=== PATIENT | female | born 1990 | race Caucasian/White ===

== ENCOUNTER 2023-11-20 15:25 | Outpatient (CLI) | payer OTHER, SELFPAY ==
--- OUTSIDE RECORDS SUMMARY | 2023-11-27 07:50 | XMS_ITS | Continuity of Care Document ---
Author Name [facility] Organization [facility] Care Team Providers Care Aviation Consultant Name Role Phone [facility] Unavailable Unavailable Problems Combined list of problems from Department of Defense and 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 It does not include entries that were removed or entered in error. Problem Status Onset Date Problem Type Date of Resolution Comments Source Anxiety Active Condition [facility] Attention deficit hyperactivity disorder, predominantly inattentive type Active Condition [facility] Cancer cervix screening status Active Condition Nov 21 Entered By: MAILE RAZA Comment: No hx BJ 2-3Aug 2021 Entered By: MAILE RAZA Comment: 12/07/20 Colposcopy neg/ECC negAug 2021 Entered By: MAILE RAZA Comment: 11/15/21 PAP NILM/HPV neg. Next co-test due in 3 years (10/2024). [facility] Fatigue Active Condition [facility] Major depressive disorder Active Condition [facility] Nasal congestion Active Condition [facility] White blood cell count abnormal Active Condition Nov 08, 2020 Entered By: MAILE RAZA Comment: chronic, peripheral smear done 10/2020 [facility] breathing-related sleep disorders Active Condition [facility] fatigue Active Condition [facility] Body Mass Index Active Condition [facility] routine examination Active Condition [facility] adjustment disorder with disturbance of emotions and conduct Active Condition [facility] nasal passage blockage (stuffiness) Active Condition [facility] smoking cigarettes Active Condition [facility] obesity Active Condition [facility] visit for: [facility] physical medical evaluation board (MEB) Inactive Condition [facility] adjustment disorder with mixed emotional features Active Condition [facility] adjustment disorder with disturbance of emotions Active Condition [facility] midback pain Active Condition [facility] scoliosis Active Condition [facility] 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 [facility] visit for: screening exam venereal disease Active Condition [facility] exposure to STD Active Condition [facility] chlamydial infections Inactive Condition [facility] Need For Vaccination Human Papilloma Virus Active Condition [facility] Oral Contraceptives Active Condition [facility] visit for: gynecological exam with Pap smear Inactive Condition [facility] Cervical Pap Smear Active Condition [facility] depression Active Condition [facility] Other Physical Therapy Active Condition [facility] visit for: follow-up exam Active Condition [facility] adjustment disorder Active Condition [facility] kyphosis acquired Active Condition [facility] lumbago Active Condition [facility] pharyngitis Active Condition [facility] dermatophytosis tinea pedis Active Condition [facility] Posture Active Condition [facility] acroparesthesia simple Active Condition [facility] lower back pain Active Condition [facility] D joint pain, localized in the wrist Active Condition and numbness DoD rhinitis Active Condition [facility] pharyngitis streptococcus, group A: beta hemolytic Inactive Condition DoD visit for: services physical Active Condition [facility] Preventive Medicine New Patient Evaluation Adult 18-39 Years Active Condition [facility] fracture of nasal bones Active Condition [facility] joint pain, localized in the hip Active Condition LeftExam suggestive of contusion, no apparent instability [facility] Patient Education - Injury Prevention Active Condition [facility] Guidance: Concerns About Alcohol Use Active Condition [facility] Guidance: Concerns About Tobacco Use Active Condition [facility] Guidance: Concerns About Unsafe Sexual Practices Inactive Condition [facility] Patient Counseling: Inactive Condition [facility] hip sprain left Active Condition [facility] knee sprain Active Condition [facility] joint pain in the toes Active Condition [facility] assessment of patient condition work-related Active Condition [facility] visit for: ears / hearing exam Active Condition DoD visit for: screening exam pulmonary tuberculosis Inactive Condition [facility] Need For Vaccination Against Viral Diseases Inactive Condition [facility] Need For Vaccination Hepatitis A Inactive Condition [facility] Need For Vaccination Against Combinations Of Diseases Inactive Condition [facility] Need For Vaccination Against Bacterial Diseases Inactive Condition [facility] Diagnosis: ICD-10-CM O09.522 Supervision of elderly multigravida, second trimester Active Diagnosis [facility] Diagnosis: ICD-10-CM O09.521 Supervision of elderly multigravida, first trimester Active Diagnosis [facility] Diagnosis: ICD-10-CM J34.2 Deviated nasal septum Active Diagnosis [facility] Diagnosis: ICD-10-CM E66.01 Morbid (severe) obesity due to excess calories Active Diagnosis [facility] Diagnosis: ICD-10-CM M54.50 Low back pain, unspecified Active Diagnosis [facility] Diagnosis: ICD-10-CM F90.0 Attn-defct hyperactivity disorder, predom inattentive type Active Diagnosis [facility] Diagnosis: ICD-10-CM F41.9 Anxiety disorder, unspecified Active Diagnosis [facility] Diagnosis: ICD-10-CM M25.552 Pain in left hip Active Diagnosis [facility] Diagnosis: ICD-10-CM R09.81 Nasal congestion Active Diagnosis [facility] Diagnosis: ICD-10-CM L70.8 Other acne Active Diagnosis [facility] Diagnosis: ICD-10-CM K58.2 Mixed irritable bowel syndrome Active Diagnosis SHIV Wall [facility] Diagnosis: ICD-10-CM H52.03 Hypermetropia, bilateral Active Diagnosis [facility] Diagnosis: ICD-10-CM R53.82 Chronic fatigue, unspecified Active Diagnosis [facility] Diagnosis: ICD-10-CM Z13.89 Encounter for screening for other disorder Active Diagnosis SHIV Wall [facility] Diagnosis: ICD-10-CM M79.671 Pain in right foot Active Diagnosis [facility] Diagnosis: ICD-10-CM I10 Essential (primary) hypertension Active Diagnosis [facility] Diagnosis: ICD-10-CM F33.41 Major depressive disorder, recurrent, in partial remission Active Diagnosis [facility] Diagnosis: ICD-10-CM R06.00 Dyspnea, unspecified Active Diagnosis [facility] Diagnosis: ICD-10-CM F32.A Depression, unspecified Active Diagnosis [facility] Diagnosis: ICD-10-CM R52 Pain, unspecified Active Diagnosis [facility] Diagnosis: ICD-10-CM Z78.9 Other specified health status Active Diagnosis [facility] Medications Combined list of outpatient medications from Department of Defense and 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Medications provided include 1) outpatient medications from the last 15 months, and 2) patient-reported medications. Medication Details Route Status Patient Instructions Prescription Expires Prescription Number Last Dispense Date Ordering Provider Order Date Order Qty Source ALBUTEROL 90MCG/ACTUA T (CFC-F) INHL,ORAL,8 .5GM DOSE COUNTER ALBUTERO L 90MCG/AC TUAT (CFC-F) INHL,ORA L,8.5GM DOSE COUNTER INHALE ONE TO TWO PUFFS BY MOUTH EVERY 4 HOURS NEEDED FOR SHORTNES S OF BREATH OR WHEEZING Oct 08, 2023 1 Nov 07, 2023 [id number] Oct 13, 2023 ALESSANDRA MCLAUGHLIN ARTURO [facility] RESPIR ATORY (INHAL ATION) 11/07/2023 [id number] ALBERTO MCLAUGHLIN 2023 1 [facility] LEEIS [facility] BISACODYL 5MG TAB,EC BISACODY L 5MG TAB,EC TAKE TWO TABLETS BY MOUTH ONCE FOR COLON PREP FOR COLON PREP Nov 13, 2022 2 Dec 13, 2022 [id number] Nov 13, 2022 BRODIEJESUS GERRY Peace [facility] ORAL 12/13/2022 [id number] GERRY HOLM Nata [address] [facility] BISACODYL 5MG TAB,EC BISACODY L 5MG TAB,EC TAKE TWO TABLETS BY MOUTH DIRECTED FOR COLON PREP FOR COLON PREP Sep 27, 2022 2 Oct 27, 2022 [id number] Sep 27, 2022 MIHAIGERRY Nata [facility] ORAL 10/27/2022 [id number] MIHAIAIMEEGERRY Nata [address] [facility] CICLOPIROX 8% SOLN,TOP CICLOPIR OX 8% SOLN,TOP Active APPLY THIN FILM TOPICALL Y EVERY DAY FOR FUNGAL NAIL INFECTIO N -- USE UNTIL RESOLUTI ON OR 48 WEEKS FOR FUNGAL NAIL INFECTIO N Dec 31, 2022 19.8 Jan 01, 2024 [id number] Dec 31, 2022 ADDIE VALDEZ [facility] TOPICA L ACTIVE 01/01/2024 [id number] LEOPOLDO GUERRERO [address] [facility] FLUCONAZOLE 150MG TAB FLUCONAZ OLE 150MG TAB Disconti nued TAKE ONE TABLET BY MOUTH ONCE FOR ONE DOSE May 14, 2023 1 Jun 13, 2023 [id number] May 14, 2023 RICARDO FELIPE S [facility] ORAL DISCONT INUED 06/13/2023 [id number] Bonny FELIPE [address] [facility] IMIQUIMOD 5% CREAM,TOP,P KT,0.25GM IMIQUIMO D 5% CREAM,TO P,PKT,0. 25GM Active APPLY 1 PACKET TOPICALL Y FRIDAY, Y AND FRIDAY AT BEDTIME LEAVE ON SKIN FOR 8 HOURS. DO NOT USE WHILE Oct 30, 2023 24 Oct 30, 2024 [id number] Nov 01, 2023 FB-HRDLI ARNOLDO HARO M [facility] TOPICA L ACTIVE 10/30/2024 [id number] FB-HRDLIC JAH SMITH M 2023 24 [facility] OLIS [facility] LOPERAMIDE HCL 2MG CAP LOPERAMI DE HCL 2MG CAP TAKE ONE TO TWO CAPSULES BY MOUTH NEEDED UP TO THREE TIMES DAILY FOR DIARRHEA FOR DIARRHEA Sep 27, 2022 100 Sep 28, 2023 [id number] Sep 27, 2022 GERRY HOLM R [facility] ORAL 09/28/2023 [id number] GERRY HOLM 2022 100 [facility] METRONIDAZO LE 500MG TAB METRONID AZOLE 500MG TAB Disconti nued TAKE ONE TABLET BY MOUTH TWICE A DAY FOR 7 DAYS May 14, 2023 14 Jun 13, 2023 [id number] May 14, 2023 RICARDO FELIPE S [facility] ORAL DISCONT INUED 06/13/2023 [id number] Bonny FELIPE 2023 14 [facility] MODAFINIL 200MG TAB MODAFINI L 200MG TAB Disconti nued TAKE ONE AND ONE-HALF TABLETS BY MOUTH EVERY MORNING FOR MOOD, ENERGY FOR MOOD, ENERGY Nov 28, 2022 45 May 31, 2023 [id number] Apr 30, 2023 [place] [facility] ORAL DISCONT INUED BY PROVIDE R 05/31/2023 [id number] [place] E 2022 45 [facility] MODAFINIL 200MG TAB MODAFINI L 200MG TAB Disconti nued TAKE ONE TABLET BY MOUTH EVERY MORNING FOR MOOD, ENERGY FOR ENERGY, FOCUS, MOOD FOR MOOD, ENERGY Nov 12, 2022 30 May 16, 2023 [id number] Nov 13, 2022 [place] [facility] ORAL DISCONT INUED (EDIT) 05/16/2023 [id number] [place] E [address] [facility] MODAFINIL 200MG TAB MODAFINI L 200MG TAB Disconti nued TAKE ONE-HALF TABLET BY MOUTH EVERY MORNING FOR 3 DAYS, THEN TAKE ONE TABLET EVERY MORNING FOR ENERGY, FOCUS, MOOD FOR ENERGY, MOOD Oct 09, 2022 29 Apr 11, 2023 [id number] Oct 09, 2022 [place] [facility] ORAL DISCONT INUED 04/11/2023 [id number] [place] E [address] [facility] MULTIVITAMI NS W/MINERALS, CAP/TAB MULTIVIT AMINS W/MINERA LS,PRENA BRII CAP/TAB Active TAKE 1 TABLET BY MOUTH EVERY DAY FOR SUPPLEME NT FOR SUPPLEME NT August 07, 2023 100 August 07, 2024 [id number] A August 08, 2023 BINA MAYA [facility] ORAL ACTIVE 08/07/2024 [id number] [address]AI [address] [facility] MULTIVITAMI NS W/MINERALS, CAP/TAB MULTIVIT AMINS W/MINERA LS,PRENA BRII CAP/TAB Disconti nued TAKE 1 TABLET BY MOUTH EVERY DAY FOR SUPPLEME NT FOR SUPPLEME NT Jul 19, 2022 100 Jul 20, 2023 [id number] Mar 06, 2023 BINA MAYA [facility] ORAL DISCONT INUED 07/20/2023 [id number] BINA BAI [address] [facility] NIFEDIPINE (EQV-CC) 30MG TAB,SA NIFEDIPI NE (EQV-CC) 30MG TAB,SA Active TAKE ONE TABLET BY MOUTH EVERY DAY FOR BLOOD PRESSURE FOR BLOOD PRESSURE August 07, 2023 90 August 07, 2024 [id number] A August 10, 2023 BINA MAYA [facility] ORAL ACTIVE 08/07/2024 [id number] BINA BAI [address] [facility] NIFEDIPINE (EQV-CC) 30MG TAB,SA NIFEDIPI NE (EQV-CC) 30MG TAB,SA Disconti nued TAKE ONE TABLET BY MOUTH EVERY DAY FOR BLOOD PRESSURE FOR BLOOD PRESSURE Jul 19, 2022 90 Jul 20, 2023 [id number] May 22, 2023 [facility] ORAL DISCONT INUED 07/20/2023 [id number]AI [address] [facility] OMEPRAZOLE 20MG CAP,EC OMEPRAZO LE 20MG CAP,EC Disconti nued TAKE TWO CAPSULES BY MOUTH EVERY DAY BEFORE A MEAL Jul 16, 2023 60 August 15, 2023 [id number] Jul 18, 2023 FB-ISCHE ,IMANI W [facility] ORAL DISCONT INUED 08/15/2023 [id number] FB-ISCHE, IMANI W [address] [facility] PEG-3350/EL ECTROLYTES PWDR PEG-3350 /ELECTRO LYTES PWDR TAKE ONE AND ONE-HALF CONTAINE RS BY MOUTH DIRECTED FOR COLON PREP FOR COLON PREP Nov 13, 2022 2 Dec 13, 2022 [id number] Nov 13, 2022 [facility]OLM [facility] ORAL 12/13/2022 [id number] GERRY HOLM [address] [facility] PEG-3350/EL ECTROLYTES PWDR PEG-3350 /ELECTRO LYTES PWDR TAKE ONE CONTAINE R BY MOUTH DIRECTED FOR COLON PREP FOR COLON PREP Sep 27, 2022 1 Oct 27, 2022 [id number] Sep 27, 2022 [facility]OLM [facility] ORAL 10/27/2022 [id number] GERRY HOLM 2022 1 [facility] VENLAFAXINE HCL 150MG 24HR CAP,SA VENLAFAX INE HCL 150MG 24HR CAP,SA Disconti nued TAKE ONE CAPSULE BY MOUTH EVERY DAY FOR ANXIETY, PAIN FOR ANXIETY, PAIN Jan 16, 2023 90 Jan 17, 2024 [id number] Apr 07, 2023 [place] [facility] ORAL DISCONT INUED BY PROVIDE R 01/17/2024 [id number] [place] E [address] [facility] VENLAFAXINE HCL 37.5MG 24HR CAP,SA VENLAFAX INE HCL 37.5MG 24HR CAP,SA Disconti nued TAKE ONE CAPSULE BY MOUTH EVERY DAY WITH A MEAL Jun 06, 2023 14 Jul 05, 2023 [id number] Jun 06, 2023 [facility]E [facility] BY PROVIDE R 07/05/2023 [id number] ABDOULAYE ROOT [address] [facility] VENLAFAXINE HCL 37.5MG 24HR CAP,SA VENLAFAX INE HCL 37.5MG 24HR CAP,SA Disconti nued TAKE ONE CAPSULE BY MOUTH EVERY DAY FOR ANXIETY, PAIN FOR ANXIETY, PAIN Oct 10, 2022 90 Oct 11, 2023 [id number] Oct 14, 2022 [place] [facility] ORAL DISCONT INUED (EDIT) 10/11/2023 [id number] [place] [address] [facility] VENLAFAXINE HCL 75MG 24HR CAP,SA VENLAFAX INE HCL 75MG 24HR CAP,SA Disconti nued TAKE ONE CAPSULE BY MOUTH EVERY DAY WITH MEAL FOR 14 DAYS Jun 06, 2023 14 Jul 05, 2023 [id number] Jun 06, 2023 ABDOULAYE CALLES [facility] ORAL DISCONT INUED BY PROVIDE R 07/05/2023 [id number] ABDOULAYE ROOT [address] [facility] VENLAFAXINE HCL 75MG 24HR CAP,SA VENLAFAX INE HCL 75MG 24HR CAP,SA Disconti nued TAKE ONE CAPSULE BY MOUTH EVERY DAY FOR ANXIETY, PAIN FOR ANXIETY, PAIN Nov 28, 2022 90 Nov 29, 2023 [id number] Dec 03, 2022 [place] [facility] ORAL DISCONT INUED (EDIT) 11/29/2023 [id number] [place],Sherine [place] E [address] [facility] Allergies, Adverse Reactions, Alerts Combined list of allergies from Department of Defense and 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 It does not include entries that were removed or entered in error. Substance Category Reaction Severity Reaction type Status Date Reported Comments Source No Known Allergies Drug allergy (disorder) active 12/25/2007 [facility] Immunizations Combined list of available immunizations from the Department of Defense and 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 Immunization Series Date Given Administered By Site Reaction Lot Number CVX Code Drug Senior Regulatory Affairs Specialist Status Comments Source TD (ADULT), 2 LF TETANUS TOXOID, PRESERVATIVE FREE, ADSORBED 2018 09 complet ed sanofi, [id number], EX 12/22/19 [facility] INFLUENZA, SEASONAL, INJECTABLE [address] [facility] HPV, QUADRIVALENT [address] [facility] INFLUENZA, SEASONAL, INJECTABLE [address] [facility] TDAP [address] [facility] INFLUENZA, SEASONAL, INJECTABLE [address] [facility] HPV, QUADRIVALENT [address] [facility] Novel influenza-H1N 1-09, injectable 1 2008 [id number] 127 [employer] Es. (NOV) complet ed Novel influenza -D3Q2-58, injectabl e [facility] anthrax vaccine 2 2008 [id number] [employer] Rena Lara (MIP) complet ed anthrax vaccine [facility] anthrax vaccine 1 2008 [id number] [employer] Yuan (MIP) complet ed anthrax vaccine [facility] vaccinia (smallpox) vaccine 1 2008 UNK 75 Unknown (UNK) Not Given vaccinia (smallpox ) vaccine [facility] typhoid Vi capsular polysaccharid e vaccine 1 2008 [id number] Unknown (UNK) comple t ed typhoid Vi capsular polysacch aride vaccine [facility] human papilloma virus vaccine, quadrivalent 1 2008 IBETH RUBY [id number] 62 Merck (MSD) complet ed human papilloma virus vaccine, quadrival ent DoD influenza virus vaccine, live, attenuated, for intranasal use 1 2007 [id number] 111 Other (OTH) complet ed influenza virus vaccine, live, attenuate d, for intranasa l use DoD hepatitis A vaccine, adult dosage 2 2007 [id number] 52 Unknown (UNK) complet ed hepatitis A vaccine, adult dosage DoD TDAP 2007 115 complet ed [place] [facility] measles, mumps and rubella virus vaccine 1 2007 UNK 03 Unknown (UNK) Not Given measles, mumps and rubella virus vaccine DoD poliovirus vaccine, inactivated 1 2007 [id number] Sanofi Pasteur ([facility]) complet ed polioviru s vaccine, inactivat ed DoD varicella virus vaccine 1 2007 UNK 21 Unknown (UNK) Not Given varicella virus vaccine DoD hepatitis B vaccine, adult dosage 1 2007 UNK 43 Unknown (UNK) Not Given hepatitis B vaccine, adult dosage DoD hepatitis A vaccine, adult dosage 1 2007 [id number] 52 Control[employer] (SKB) complet ed hepatitis A vaccine, adult dosage DoD influenza virus vaccine, live, attenuated, for intranasal use 1 2007 [id number] 111 [employer] (MED) complet ed influenza virus vaccine, live, attenuate d, for intranasa l use DoD meningococcal polysaccharid e (groups A, C, Y and W-135) diphtheria toxoid conjugate vaccine (MCV4P) 1 2007 [id number] 114 Sanofi Pasteur (PMC) complet ed meningoco ccal polysacch aride (groups A, C, Y and W-135) diphtheri a toxoid conjugate vaccine (MCV4P) DoD tetanus toxoid, reduced diphtheria toxoid, and acellular pertu is vaccine, adsorbed 1 2007 [id number] 115 Sanofi Pasteur (PMC) complet ed tetanus toxoid, reduced diphtheri a toxoid, and acellular pertussis vaccine, adsorbed DoD Results Combined list of recent chemistry, hematology and other laboratory results from Department of Defense and Veterans Affairs, ranging from 15 months to all on record, depending upon the facility. Order Name Results Value Reference Range Date Interpretation Specimen Comments Source MARTÍN RODRIGUEZ/Anitha. GONORRHE A DNA CHLAMYDIA TRACHOMATI S DNA [PRESENCE] IN URINE BY MAL WITH PROBE DETECTION NOT DETECTED 12/31 Specimen Type: URINE No comment entered. Ordering Provider: Angy GUERRERO Report Released Date/Time: Dec 31, 2022 01:23 PM Reporting Lab: [facility] [phone] Performing Lab: [facility] [phone] [facility] IS [facility] C.TRACHO MATIS/N. GONORRHE A DNA NEISSERIA GONORRHOEA E DNA [PRESENCE] IN URINE BY MAL WITH PROBE DETECTION NOT DETECTED 12/31 Specimen Type: URINE No comment entered. Ordering Provider: Angy GUERRERO Report Released Date/Time: Dec 31, 2022 01:23 PM Reporting Lab: [facility] [phone] Performing Lab: [facility] [address] [facility] IS [facility] C.TRACHO MATIS/N. GONORRHE A DNA INTERPRETA TION AND REVIEW OF LABORATORY RESULTS Infectio us agent DNA is not detected by this assay 12/31 Specimen Type: URINE No comment entered. Ordering Provider: Angy GUERRERO Report Released Date/Time: Dec 31, 2022 01:23 PM Reporting Lab: [facility] [phone] Performing Lab: [facility] [phone] [facility] IS [facility] HCG, QUAL CHORIOGONA DOTROPIN.B ETA SUBUNIT ( TEST) [PRESENCE] IN URINE NEGATIVE 12/31 Specimen Type: URINE No comment entered. Ordering Provider: Angy GUERRERO Report Released Date/Time: Dec 31, 2022 01:23 PM Reporting Lab: [facility] [phone] Performing Lab: [facility] [address] [facility] IS [facility] LIPID PANEL,NO N-FASTIN G CHOLESTERO L [MASS/VOLU ME] IN SERUM OR PLASMA 232 mg/dL <199 - 199 12/31 H Specimen Type: PLASMA Comment: Elevated triglycerid e result from a non-fasting specimen should be interpreted with caution. A fasting panel is recommended for accurate triglycerid es when trigs are >200 from a non-fasting specimen. Ordering Provider: JAKUB RAZA Report Released Date/Time: Jul 19, 2022 09:34 AM Reporting Lab: [facility] [phone] Performing Lab: [facility] [address] [place] [facility] LIPID PANEL,NO N-FASTIN G CHOLESTERO L IN HDL [MASS/VOLU ME] IN SERUM OR PLASMA 45 mg/dL 50 12/31 Specimen Type: PLASMA Comment: Elevated triglycerid e result from a non-fasting specimen should be interpreted with caution. A fasting panel is recommended for accurate triglycerid es when trigs are >200 from a non-fasting specimen. Ordering Provider: JAKUB RAZA Report Released Date/Time: Jul 19, 2022 09:34 AM Reporting Lab: [facility] [address] Performing Lab: [facility] [address] [place] [facility] LIPID PANEL,NO N-FASTIN G CHOLESTERO L IN LDL [MASS/VOLU ME] IN SERUM OR PLASMA BY CALCULATIO N 146 mg/dL <99 - 99 12/31 H Specimen Type: PLASMA Comment: Elevated triglycerid e result from a non-fasting specimen should be interpreted with caution. A fasting panel is recommended for accurate triglycerid es when trigs are >200 from a non-fasting specimen. Ordering Provider: JAKUB RAZA Report Released Date/Time: Jul 19, 2022 09:34 AM Reporting Lab: [facility] [phone] Performing Lab: [facility] [address] [place] [facility] LIPID PANEL,NO N-FASTIN G CHOLESTERO L IN VLDL [MASS/VOLU ME] IN SERUM OR PLASMA BY CALCULATIO N 41 mg/dL <29 - 29 12/31 H Specimen Type: PLASMA Comment: Elevated triglycerid e result from a non-fasting specimen should be interpreted with caution. A fasting panel is recommended for accurate triglycerid es when trigs are >200 from a non-fasting specimen. Ordering Provider: JAKUB RAZA Report Released Date/Time: Jul 19, 2022 09:34 AM Reporting Lab: [facility] [phone] Performing Lab: [facility] [address] [place] [facility] LIPID PANEL,NO N-FASTIN G CHOLESTERO L NON HDL [MASS/VOLU ME] IN SERUM OR PLASMA 187 mg/dL <129 - 129 12/31 H Specimen Type: PLASMA Comment: Elevated triglycerid e result from a non-fasting specimen should be interpreted with caution. A fasting panel is recommended for accurate triglycerid es when trigs are >200 from a non-fasting specimen. Ordering Provider: JAKUB RAZA Report Released Date/Time: Jul 19, 2022 09:34 AM Reporting Lab: [facility] [address] Performing Lab: [facility] [address] [place] [facility] LIPID PANEL,NO N-FASTIN G TRIGLYCERI DE [MASS/VOLU ME] IN SERUM OR PLASMA 207 mg/dL <149 - 149 12/31 H Specimen Type: PLASMA Comment: Elevated triglycerid e result from a non-fasting specimen should be interpreted with caution. A fasting panel is recommended for accurate triglycerid es when trigs are >200 from a non-fasting specimen. Ordering Provider: JAKUB RAZA Report Released Date/Time: Jul 19, 2022 09:34 AM Reporting Lab: [facility] [address] Performing Lab: [facility] [address] [place] [facility] C-REACTI VE PROTEIN C REACTIVE PROTEIN [MASS/VOLU ME] IN SERUM OR PLASMA BY HIGH SENSITIVIT Y METHOD 10.44 mg/L <5.00 - 5.00 12/31 H Specimen Type: PLASMA Comment: Elevated triglycerid e result from a non-fasting specimen should be interpreted with caution. A fasting panel is recommended for accurate triglycerid es when trigs are >200 from a non-fasting specimen. Ordering Provider: JAKUB RAZA Report Released Date/Time: Jul 19, 2022 09:34 AM Reporting Lab: [facility] [address] Performing Lab: [facility] [address] [place] [facility] COMPREHE NSIVE METABOLI C PANEL+MG CREATININE [MASS/VOLU ME] IN SERUM OR PLASMA 0.6 mg/dL 0.5 - 1.0 12/31 Specimen Type: PLASMA Comment: Elevated triglycerid e result from a non-fasting specimen should be interpreted with caution. A fasting panel is recommended for accurate triglycerid es when trigs are >200 from a non-fasting specimen. Ordering Provider: JAKUB RAZA Report Released Date/Time: Jul 19, 2022 09:34 AM Reporting Lab: [facility] [address] Performing Lab: [facility] [address] [facility] COMPREHE NSIVE METABOLI C PANEL+MG UREA NITROGEN [MASS/VOLU ME] IN SERUM OR PLASMA 7 mg/dL 7 - 20 12/31 Specimen Type: PLASMA Comment: Elevated triglycerid e result from a non-fasting specimen should be interpreted with caution. A fasting panel is recommended for accurate triglycerid es when trigs are >200 from a non-fasting specimen. Ordering Provider: JAKUB RAZA Report Released Date/Time: Jul 19, 2022 09:34 AM Reporting Lab: [facility] [address] Performing Lab: [facility] [address] [facility] COMPREHE NSIVE METABOLI C PANEL+MG GLUCOSE [MASS/VOLU ME] IN SERUM OR PLASMA 93 mg/dL 70 - 100 12/31 Specimen Type: PLASMA Comment: Elevated triglycerid e result from a non-fasting specimen should be interpreted with caution. A fasting panel is recommended for accurate triglycerid es when trigs are >200 from a non-fasting specimen. Ordering Provider: JAKUB RAZA A Report Released Date/Time: Jul 19, 2022 09:34 AM Reporting Lab: [facility] [address] Performing Lab: [facility] [address] [facility] COMPREHE NSIVE METABOLI C PANEL+MG SODIUM [MOLES/VOL UME] IN SERUM OR PLASMA 140 mmol/L 136 - 145 12/31 Specimen Type: PLASMA Comment: Elevated triglycerid e result from a non-fasting specimen should be interpreted with caution. A fasting panel is recommended for accurate triglycerid es when trigs are >200 from a non-fasting specimen. Ordering Provider: JAKUB RAZA Report Released Date/Time: Jul 19, 2022 09:34 AM Reporting Lab: [facility] [address] Performing Lab: [place] [phone] [facility] COMPREHE NSIVE METABOLI C PANEL+MG POTASSIUM [MOLES/VOL UME] IN SERUM OR PLASMA 3.9 mmol/L 3.5 - 5.1 12/31 Specimen Type: PLASMA Comment: Elevated triglycerid e result from a non-fasting specimen should be interpreted with caution. A fasting panel is recommended for accurate triglycerid es when trigs are >200 from a non-fasting specimen. Ordering Provider: JAKUB RAZA Report Released Date/Time: Jul 19, 2022 09:34 AM Reporting Lab: [facility] [address] Performing Lab: [place] [phone] [facility] COMPREHE NSIVE METABOLI C PANEL+MG CHLORIDE [MOLES/VOL UME] IN SERUM OR PLASMA 107 mmol/L 98 - 107 12/31 Specimen Type: PLASMA Comment: Elevated triglycerid e result from a non-fasting specimen should be interpreted with caution. A fasting panel is recommended for accurate triglycerid es when trigs are >200 from a non-fasting specimen. Ordering Provider: JAKUB RAZA Report Released Date/Time: Jul 19, 2022 09:34 AM Reporting Lab: [facility] [address] Performing Lab: [facility] [address] [facility] COMPREHE NSIVE METABOLI C PANEL+MG CARBON DIOXIDE, TOTAL [MOLES/VOL UME] IN SERUM OR PLASMA 24 mmol/L 22 - 29 12/31 Specimen Type: PLASMA Comment: Elevated triglycerid e result from a non-fasting specimen should be interpreted with caution. A fasting panel is recommended for accurate triglycerid es when trigs are >200 from a non-fasting specimen. Ordering Provider: AJKUB RAZA Report Released Date/Time: Jul 19, 2022 09:34 AM Reporting Lab: [place] [phone] Performing Lab: [facility] [address] [place] [facility] COMPREHE NSIVE METABOLI C PANEL+MG CALCIUM [MASS/VOLU ME] IN SERUM OR PLASMA 8.9 mg/dL 8.4 - 10.2 12/31 Specimen Type: PLASMA Comment: Elevated triglycerid e result from a non-fasting specimen should be interpreted with caution. A fasting panel is recommended for accurate triglycerid es when trigs are >200 from a non-fasting specimen. Ordering Provider: JAKUB RAZA Report Released Date/Time: Jul 19, 2022 09:34 AM Reporting Lab: [facility] [phone] Performing Lab: [facility] [address] [place] [facility] COMPREHE NSIVE METABOLI C PANEL+MG PROTEIN [MASS/VOLU ME] IN SERUM OR PLASMA 7.2 g/dL 6.0 - 8.3 12/31 Specimen Type: PLASMA Comment: Elevated triglycerid e result from a non-fasting specimen should be interpreted with caution. A fasting panel is recommended for accurate triglycerid es when trigs are >200 from a non-fasting specimen. Ordering Provider: JAKUB RAZA Report Released Date/Time: Jul 19, 2022 09:34 AM Reporting Lab: [facility] [phone] Performing Lab: [facility] [address] [facility] COMPREHE NSIVE METABOLI C PANEL+MG ALBUMIN [MASS/VOLU ME] IN SERUM OR PLASMA 4.0 g/dL 3.5 - 5.2 12/31 Specimen Type: PLASMA Comment: Elevated triglycerid e result from a non-fasting specimen should be interpreted with caution. A fasting panel is recommended for accurate triglycerid es when trigs are >200 from a non-fasting specimen. Ordering Provider: JAKUB RAZA Report Released Date/Time: Jul 19, 2022 09:34 AM Reporting Lab: [facility] [address] Performing Lab: [facility] [address] [place] [facility] COMPREHE NSIVE METABOLI C PANEL+MG BILIRUBIN. TOTAL [MASS/VOLU ME] IN SERUM OR PLASMA 0.3 mg/dL 0.2 - 1.2 12/31 Specimen Type: PLASMA Comment: Elevated triglycerid e result from a non-fasting specimen should be interpreted with caution. A fasting panel is recommended for accurate triglycerid es when trigs are >200 from a non-fasting specimen. Ordering Provider: JAKUB RAZA A Report Released Date/Time: Jul 19, 2022 09:34 AM Reporting Lab: [facility] [phone] Performing Lab: [facility] [address] [facility] COMPREHE NSIVE METABOLI C PANEL+MG MAGNESIUM [MASS/VOLU ME] IN SERUM OR PLASMA 1.8 mg/dL 1.6 - 2.6 12/31 Specimen Type: PLASMA Comment: Elevated triglycerid e result from a non-fasting specimen should be interpreted with caution. A fasting panel is recommended for accurate triglycerid es when trigs are >200 from a non-fasting specimen. Ordering Provider: JAKUB RAZA A Report Released Date/Time: Jul 19, 2022 09:34 AM Reporting Lab: [facility] [address] Performing Lab: [facility] [address] [facility] COMPREHE NSIVE METABOLI C PANEL+MG ANION GAP IN SERUM OR PLASMA 9 mmol/L 5 - 15 12/31 Specimen Type: PLASMA Comment: Elevated triglycerid e result from a non-fasting specimen should be interpreted with caution. A fasting panel is recommended for accurate triglycerid es when trigs are >200 from a non-fasting specimen. Ordering Provider: JAKUB RAZA A Report Released Date/Time: Jul 19, 2022 09:34 AM Reporting Lab: [facility] [phone] Performing Lab: [facility] [address] [facility] COMPREHE NSIVE METABOLI C PANEL+MG ALKALINE PHOSPHATAS E [ENZYMATIC ACTIVITY/V OLUME] IN SERUM OR PLASMA 110 U/L 40 - 150 12/31 Specimen Type: PLASMA Comment: Elevated triglycerid e result from a non-fasting specimen should be interpreted with caution. A fasting panel is recommended for accurate triglycerid es when trigs are >200 from a non-fasting specimen. Ordering Provider: JAKUB RAZA Report Released Date/Time: Jul 19, 2022 09:34 AM Reporting Lab: [facility] [address] Performing Lab: [facility] [address] [facility] COMPREHE NSIVE METABOLI C PANEL+MG ALANINE AMINOTRANS FERASE [ENZYMATIC ACTIVITY/V OLUME] IN SERUM OR PLASMA 26 U/L <55 - 55 12/31 Specimen Type: PLASMA Comment: Elevated triglycerid e result from a non-fasting specimen should be interpreted with caution. A fasting panel is recommended for accurate triglycerid es when trigs are >200 from a non-fasting specimen. Ordering Provider: JAKUB RAZA Report Released Date/Time: Jul 19, 2022 09:34 AM Reporting Lab: [facility] [address] Performing Lab: [facility] [address] [facility] COMPREHE NSIVE METABOLI C PANEL+MG ASPARTATE AMINOTRANS FERASE [ENZYMATIC ACTIVITY/V OLUME] IN SERUM OR PLASMA 26 U/L <34 - 34 12/31 Specimen Type: PLASMA Comment: Elevated triglycerid e result from a non-fasting specimen should be interpreted with caution. A fasting panel is recommended for accurate triglycerid es when trigs are >200 from a non-fasting specimen. Ordering Provider: JAKUB RAZA Report Released Date/Time: Jul 19, 2022 09:34 AM Reporting Lab: [facility] [address] Performing Lab: [facility] [address] [facility] COMPREHE NSIVE METABOLI C PANEL+MG GLOMERULAR FILTRATION RATE/1.73 SQ M.PREDICTE D [VOLUME RATE/AREA] IN SERUM, PLASMA OR BLOOD BY CREATININE -BASED FORMULA (CKD-EPI 2020) >90 60 12/31 Specimen Type: PLASMA Comment: Elevated triglycerid e result from a non-fasting specimen should be interpreted with caution. A fasting panel is recommended for accurate triglycerid es when trigs are >200 from a non-fasting specimen. Ordering Provider: JAKUB RAZA Report Released Date/Time: Jul 19, 2022 09:34 AM Reporting Lab: [facility] [address] Performing Lab: [facility] [address] [place] [facility] CBC & DIFF LEUKOCYTES [#/VOLUME] IN BLOOD BY AUTOMATED COUNT 13.98 10*3/uL 4.0 - 11.0 12/31 H Specimen Type: BLOOD Comment: Manual Differentia l Performed Ordering Provider: JAKUB RAZA Report Released Date/Time: Jul 18, 2022 03:26 PM Reporting Lab: [facility] [phone] Performing Lab: [facility] [address] [place] [facility] CBC & DIFF ERYTHROCYT ES [#/VOLUME] IN BLOOD BY AUTOMATED COUNT 4.29 10*6/uL 4.0 - 5.4 12/31 Specimen Type: BLOOD Comment: Manual Differentia l Performed Ordering Provider: JAKUB RAZA Report Released Date/Time: Jul 18, 2022 03:26 PM Reporting Lab: [facility] [address] Performing Lab: [facility] [address] [place] [facility] CBC & DIFF HEMOGLOBIN [MASS/VOLU ME] IN BLOOD 14.0 g/dL 11.5 - 16 12/31 Specimen Type: BLOOD Comment: Manual Differentia l Performed Ordering Provider: JAKUB RAZA Report Released Date/Time: Jul 18, 2022 03:26 PM Reporting Lab: [facility] [address] Performing Lab: [facility] [address] [place] [facility] CBC & DIFF HEMATOCRIT [VOLUME FRACTION] OF BLOOD BY AUTOMATED COUNT 40.2 34.5 - 48 12/31 Specimen Type: BLOOD Comment: Manual Differentia l Performed Ordering Provider: JAKUB RAZA Report Released Date/Time: Jul 18, 2022 03:26 PM Reporting Lab: [facility] [address] Performing Lab: [facility] [address] [place] [facility] CBC & DIFF MCV [ENTITIC VOLUME] BY AUTOMATED COUNT 93.7 fL 80 - 100 12/31 Specimen Type: BLOOD Comment: Manual Differentia l Performed Ordering Provider: JAKUB RAZA Report Released Date/Time: Jul 18, 2022 03:26 PM Reporting Lab: [facility] [address] Performing Lab: [facility] [address] [place] [facility] CBC & DIFF MCH [ENTITIC MASS] BY AUTOMATED COUNT 32.6 pg 27 - 33 12/31 Specimen Type: BLOOD Comment: Manual Differentia l Performed Ordering Provider: JAKUB RAZA Report Released Date/Time: Jul 18, 2022 03:26 PM Reporting Lab: [facility] [address] Performing Lab: [facility] [address] [place] [facility] CBC & DIFF MCHC [MASS/VOLU ME] BY AUTOMATED COUNT 34.8 g/dL 32.0 - 37.5 12/31 Specimen Type: BLOOD Comment: Manual Differentia l Performed Ordering Provider: JAKUB RAZA Report Released Date/Time: Jul 18, 2022 03:26 PM Reporting Lab: [facility] [address] Performing Lab: [facility] [address] [place] [facility] CBC & DIFF PLATELETS [#/VOLUME] IN BLOOD BY AUTOMATED COUNT 361 10*3/uL 150 - 400 12/31 Specimen Type: BLOOD Comment: Manual Differentia l Performed Ordering Provider: JAKUB RAZA Report Released Date/Time: Jul 18, 2022 03:26 PM Reporting Lab: [facility] [address] Performing Lab: [facility] [address] [place] [facility] CBC & DIFF PLATELET MEAN VOLUME [ENTITIC VOLUME] IN BLOOD BY AUTOMATED COUNT 8.8 fL 7.4 - 10.4 12/31 Specimen Type: BLOOD Comment: Manual Differentia l Performed Ordering Provider: JAKUB RAZA Report Released Date/Time: Jul 18, 2022 03:26 PM Reporting Lab: [facility] [address] Performing Lab: [facility] [address] [place] [facility] CBC & DIFF NEUTROPHIL S/100 LEUKOCYTES IN BLOOD BY MANUAL COUNT 59.9 12/31 Specimen Type: BLOOD Comment: Manual Differentia l Performed Ordering Provider: JAKUB RAZA Report Released Date/Time: Jul 18, 2022 03:26 PM Reporting Lab: [facility] [address] Performing Lab: [facility] [address] [place] [facility] CBC & DIFF LYMPHOCYTE S/100 LEUKOCYTES IN BLOOD BY MANUAL COUNT 31.5 12/31 Specimen Type: BLOOD Comment: Manual Differentia l Performed Ordering Provider: JAKUB RAZA Report Released Date/Time: Jul 18, 2022 03:26 PM Reporting Lab: [facility] [address] Performing Lab: [facility] [address] [place] [facility] CBC & DIFF ERYTHROCYT E DISTRIBUTI ON WIDTH [RATIO] BY AUTOMATED COUNT 12.5 11.5 - 14.5 12/31 Specimen Type: BLOOD Comment: Manual Differentia l Performed Ordering Provider: JAKUB RAZA Report Released Date/Time: Jul 18, 2022 03:26 PM Reporting Lab: [facility] [address] Performing Lab: [facility] [address] [place] [facility] CBC & DIFF MONOCYTES/ 100 LEUKOCYTES IN BLOOD BY AUTOMATED COUNT 4.1 12/31 Specimen Type: BLOOD Comment: Manual Differentia l Performed Ordering Provider: JAKUB RAZA Report Released Date/Time: Jul 18, 2022 03:26 PM Reporting Lab: [facility] [address] Performing Lab: [facility] [address] [place] [facility] CBC & DIFF EOSINOPHIL S/100 LEUKOCYTES IN BLOOD BY AUTOMATED COUNT 3.0 12/31 Specimen Type: BLOOD Comment: Manual Differentia l Performed Ordering Provider: JAKUB RAZA Report Released Date/Time: Jul 18, 2022 03:26 PM Reporting Lab: [facility] [address] Performing Lab: [facility] [address] [place] [facility] CBC & DIFF BASOPHILS/ 100 LEUKOCYTES IN BLOOD BY MANUAL COUNT 1.0 12/31 Specimen Type: BLOOD Comment: Manual Differentia l Performed Ordering Provider: JAKUB RAZA Report Released Date/Time: Jul 18, 2022 03:26 PM Reporting Lab: [facility] [address] Performing Lab: [facility] [address] [place] [facility] CBC & DIFF MYELOCYTES /100 LEUKOCYTES IN BLOOD BY MANUAL COUNT 0.5 12/31 Specimen Type: BLOOD Comment: Manual Differentia l Performed Ordering Provider: JAKUB RAZA Report Released Date/Time: Jul 18, 2022 03:26 PM Reporting Lab: [facility] [address] Performing Lab: [facility] [address] [place] [facility] CBC & DIFF LYMPHOCYTE S [#/VOLUME] IN BLOOD BY AUTOMATED COUNT 4.40 10*3/uL 1.0 - 4.0 12/31 H Specimen Type: BLOOD Comment: Manual Differentia l Performed Ordering Provider: JAKUB RAZA Report Released Date/Time: Jul 18, 2022 03:26 PM Reporting Lab: [facility] [address] Performing Lab: [facility] [address] [place] [facility] CBC & DIFF MONOCYTES [#/VOLUME] IN BLOOD BY AUTOMATED COUNT 0.57 10*3/uL 0.1 - 1.0 12/31 Specimen Type: BLOOD Comment: Manual Differentia l Performed Ordering Provider: JAKUB RAZA Report Released Date/Time: Jul 18, 2022 03:26 PM Reporting Lab: [facility] [address] Performing Lab: [facility] [address] [place] [facility] CBC & DIFF NEUTROPHIL S [#/VOLUME] IN BLOOD BY AUTOMATED COUNT 8.37 10*3/uL 2.0 - 7.7 12/31 H Specimen Type: BLOOD Comment: Manual Differentia l Performed Ordering Provider: JAKUB RAZA Report Released Date/Time: Jul 18, 2022 03:26 PM Reporting Lab: [facility] [address] Performing Lab: [facility] [address] [place] [facility] CBC & DIFF EOSINOPHIL S [#/VOLUME] IN BLOOD BY AUTOMATED COUNT 0.42 10*3/uL 0 - 0.5 12/31 Specimen Type: BLOOD Comment: Manual Differentia l Performed Ordering Provider: JAKUB RAZA Report Released Date/Time: Jul 18, 2022 03:26 PM Reporting Lab: [facility] [address] Performing Lab: [facility] [address] [facility] CBC & DIFF BASOPHILS [#/VOLUME] IN BLOOD BY AUTOMATED COUNT 0.14 10*3/uL 0 - 0.2 12/31 Specimen Type: BLOOD Comment: Manual Differentia l Performed Ordering Provider: JAKUB RAZA Report Released Date/Time: Jul 18, 2022 03:26 PM Reporting Lab: [facility] [address] Performing Lab: [facility] [address] [facility] CBC & DIFF MYELOCYTES [#/VOLUME] IN BLOOD BY MANUAL COUNT 0.07 10*3/uL 12/31 Specimen Type: BLOOD Comment: Manual Differentia l Performed Ordering Provider: JAKUB RAZA Report Released Date/Time: Jul 18, 2022 03:26 PM Reporting Lab: [facility] [address] Performing Lab: [facility] [address] [facility] CBC & DIFF ERYTHROCYT E MORPHOLOGY FINDING [IDENTIFIE R] IN BLOOD NORMOCYT IC, NORMOCHR OMIC 12/31 Specimen Type: BLOOD Comment: Manual Differentia l Performed Ordering Provider: JAKUB RAZA Report Released Date/Time: Jul 18, 2022 03:26 PM Reporting Lab: [facility] [address] Performing Lab: [facility] [address] [facility] HIV AG/AB SCREEN HIV 1+2 AB+HIV1 P24 AG [PRESENCE] IN SERUM OR PLASMA BY IMMUNOASSA Y NEGATIVE 12/31 Specimen Type: SERUM No comment entered. Ordering Provider: Angy GUERRERO Report Released Date/Time: Dec 31, 2022 01:23 PM Reporting Lab: [facility] [address] Performing Lab: [facility] [address] [place] [facility] ANTI-HEP C(EIA) HEPATITIS C VIRUS AB [PRESENCE] IN SERUM NEGATIVE 12/31 Specimen Type: SERUM No comment entered. Ordering Provider: Angy GUERRERO Report Released Date/Time: Dec 31, 2022 01:23 PM Reporting Lab: [facility] [address] Performing Lab: [facility] [address] [place] [facility] SYPHILIS ANTIBODY SYPHILIS SCREEN TEST STATUS CPHS NEGATIVE 12/31 Specimen Type: SERUM No comment entered. Ordering Provider: Angy GUERRERO Report Released Date/Time: Dec 31, 2022 01:23 PM Reporting Lab: [facility] [address] Performing Lab: [facility] [address] [place] [facility] PROLACTI N PROLACTIN [MASS/VOLU ME] IN SERUM OR PLASMA BY IMMUNOASSA Y 2.51 ng/mL <26.53 - 26.53 10/29 Specimen Type: PLASMA No comment entered. Ordering Provider: Angy GUERRERO Report Released Date/Time: Oct 25, 2022 04:35 PM Reporting Lab: [facility] [address] Performing Lab: [facility] [address] [place] [facility] Vital Signs Combined list of inpatient and outpatient Vital Signs from Department of Defense and Veterans Affairs, ranging from 12 months to all on record, depending upon the facility. Vital Sign Value Date Comments Source Encounters Combined list of: 1) Encounters from Department of Veterans Affairs facilities going back up to thelast 18 months. 2) Encounters from the Department of Defense facilities going back up to 280 months. Location Location Details Encounter Type Encounter Number Reason For Visit Attending Provider ADM Date DC Date Status Disposition Source [employer](IEP Hearing Conservat ion) OUTPATIENT [id number] LESLY CHRISTENSEN 04/09 Released w/o Limitations [employer](I EP Hearing Conserv ation) [employer](RE C Post Immunizat ion) OUTPATIENT [id number] IET PPD TABARES, JAUNEJESUSBonny Blair 04/10 Released w/o Limitations [employer](M [facility] Post Immuniz ation) [employer](RE C Post Immunizat ion) OUTPATIENT [id number] IET IMMUNIZ ATIONS LISSETT VERMA 04/13 Released w/o Limitations [employer](M [facility] Post Immuniz ation) [employer](C Ambulator y) OUTPATIENT [id number] rtd MARCY ESPINOZA 06/05 Released with Work/Duty Limitations [employer](T [facility] Ambulat ory) [employer](C Ambulator y) OUTPATIENT [id number] SAM MCKEON 06/14 Released with Work/Duty Limitations [employer](T MC Ambulat ory) PEREZ Berrios([facility]) OUTPATIENT [id number] SELF CARE CLASS [place] 06/30 Released w/o Limitations PEREZ Overton([facility]) PEREZ Berrios([facility]) OUTPATIENT [id number] right knee pain for 5 days DEJA GARCIA R 07/12 Released with Work/Duty Limitations [facility]) PEREZ Berrios([facility]) OUTPATIENT [id number] l HIP BACK PAIN BRETT RIVAS 07/23 Released with Work/Duty Limitations [facility](Fami ly Practic e [facility]) PEREZ Berrios([facility]) OUTPATIENT [id number] L hip pain BANDAR JASMINE B 08/12 Released with Work/Duty Limitations [place]([facility]) PEREZ Berrios([facility]) OUTPATIENT [id number] broken nose DEJA GARCIA R 08/16 Released with Work/Duty Limitations [place]([facility]ami [facility] e Combine d) [facility](Hear ing Conservat ion SRP) OUTPATIENT [id number] in-proc essing/ pcs AIME MEADE 09/20 Released w/o Limitations [facility] aring [facility]) [facility]) OUTPATIENT [id number] Inproce ROM Corcoran 09/21 Released w/o Limitations [facility]) [facility]) OUTPATIENT [id number] sorethr oat GERALD FLORES 10/13 Released with Work/Duty Limitations [facility]) [facility](Immi gration Phys Exam) OUTPATIENT [id number] possibl e sinus infecti on [facility] 11/03 Released w/o Limitations [facility](Im migrati on Phys Exam) [facility](Immi gration Phys Exam) OUTPATIENT [id number] back pain/wr ist pain possibl e referra l [facility] 11/16 Released with Work/Duty Limitations [facility](Im migrati on Phys Exam) [facility](Occu pational Therapy) OUTPATIENT [id number] joint pain, localiz ed in the wrist CLARY NDIAYE 12/07 Released w/o Limitations [facility](Oc cupatio nal Therapy ) [facility](Immi gration Phys Exam) OUTPATIENT [id number] crack on left foot [facility] 12/24 Released w/o Limitations [facility](Im migrati on Phys Exam) [facility](Immi gration Phys Exam) OUTPATIENT [id number] asthma evaluat ion GERALD FLORES 03/16 Released w/o Limitations [facility](Im migrati on Phys Exam) [facility](Immi gration Phys Exam) OUTPATIENT [id number] back pain GERALD FLORES 06/01 Released with Work/Duty Limitations [facility](Im migrati on Phys Exam) [facility](Immi gration Phys Exam) OUTPATIENT [id number] follow up GERALD FLORES 06/28 Released with Work/Duty Limitations [facility](Im migrati on Phys Exam) [facility](Phys ical Therapy Tran) OUTPATIENT [id number] VICTOR HUGO RODRIGUEZ [employer] 06/29 Released with Work/Duty Limitations [facility](Ph ysical Therapy Tran ) [facility](Phys ical Therapy Tran) OUTPATIENT [id number] MARTINSJEMMA PINA III 07/06 Released w/o Limitations [facility](Ph ysical Therapy Tran ) [facility](Immi gration Phys Exam) OUTPATIENT [id number] pap CANDACE CORDOVA CHETNA 07/12 Released w/o Limitations [facility](Im migrati on Phys Exam) [facility](Phys ical Therapy Tran) OUTPATIENT [id number] MARTINSJEMMA PINA [facility] 07/13 Released w/o Limitations [facility](Ph ysical Therapy Tran ) [facility](Phys ical Therapy Tran) OUTPATIENT [id number] [facility] 07/15 Released w/o Limitations [facility](Ph ysical Therapy Tran ) [facility](Immi gration Phys Exam) TELE CONSULT [id number] lab result CANDACE CORDOVA 07/15 [facility](Im migrati on Phys Exam) [facility](Epid emiology) TELE CONSULT [id number] CT (+) JAMEL DE LA O 07/19 [facility](Ep idemiol ogy) [facility](Epid emiology) OUTPATIENT [id number] ACUTE/P T JAMEL DE LA O 07/25 Released w/o Limitations [facility](Ep idemiol ogy) [facility](Immi gration Phys Exam) OUTPATIENT [id number] lower back/po ssible ortho referra GERALD [place] 08/10 Released with Work/Duty Limitations [facility](Im migrati on Phys Exam) [facility](Phys ical Medicine [place]) OUTPATIENT [id number] 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 DEMETRIUS LAWTON 09/02 Released w/o Limitations [facility](Ph ysical Medicin e [place]) [facility](Immi gration Phys Exam) OUTPATIENT [id number] F/U MRI GERALD FLORES Rosenda 09/20 Released with Work/Duty Limitations [facility](Im migrati on Phys Exam) [facility](Immi gration Phys Exam) OUTPATIENT [id number] back pain CHAVOMARIAM 10/31 Released w/o Limitations [facility](Im migrati on Phys Exam) [facility](Orth opedics Spine) OUTPATIENT [id number] 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, first spine per referra MIGNON Saleh 11/15 Released with Work/Duty Limitations [facility](Or thopedi cs Spine) [facility](Eduardo ology/Hea ring Conservat ion) OUTPATIENT [id number] Periodi c STEVAN TAYLOR 11/18 Released w/o Limitations [facility](Au diology /Hearin g Conserv ation) [facility](Phys ical Therapy) OUTPATIENT [id number] WYB ROM for L/S Spine MAYA BECKMAN 11/21 Released w/o Limitations [facility](Ph ysical Therapy ) [facility](Opto metry CT) OUTPATIENT [id number] med physicRASHAD Kurtz 11/21 Released w/o Limitations [facility](Op tometry CT) [facility](Immi gration Phys Exam) OUTPATIENT [id number] phase II pe (meb) ADRIÁN KHAN 11/25 Released w/o Limitations [facility](Im migrati on Phys Exam) [facility](Immi gration Phys Exam) OUTPATIENT [id number] deviate d nasal septum CANDACE CORDOVA 12/16 Released w/o Limitations [facility](Im migrati on Phys Exam) [facility](Immi gration Phys Exam) OUTPATIENT [id number] knee pain (deplet ed reflexe s) LOURDESBANDAR JM 01/19 Released w/o Limitations [facility](Im migrati on Phys Exam) [facility](Immi gration Phys Exam) OUTPATIENT [id number] referra l for sleep study SHANNAN LOPEZ Nata 01/20 Released w/o Limitations [facility](Im migrati on Phys Exam) [facility] [place] [facility] Medicine) TELE CONSULT [id number] Per TDRL require ments SONIA SAEZ 03/15 [facility] [place](Inte rnal Medicin e) [facility] [place] OUTPATIENT [id number] TDRL SONIA SAEZ 04/10 Released w/o Limitations [facility] [place] [place] [place] OUTPATIENT [id number] ROM FOR TDRL ROM ARIZMENDI 04/10 Released w/o Limitations [facility] [place] [place] [facility] OFFICE O/P EST HI 40-54 MIN 71142-4.61 [id number] Diagnos is: ICD-10- CM F33.41 Major depress vidal disorde r, recurre nt, in partial remissi on
Sean RAZA 06/06 [facility] Outpatient Encounter [id number] 06/06 [facility] HC PRO PHONE CALL 21-30 MIN [id number] [id number] Diagnos is: ICD-10- CM Z13.89 Encount er for screeni ng for other disorde r
MAIN,RENO NNE K 06/10 [facility] SELF-MGMT EDUC & TRAIN 1 [place] [address]-4.61 [id number] Diagnos is: ICD-10- CM Z78.9 Other specifi ed health status< br/> Anitha LION J 06/11 [facility] HC PRO PHONE CALL 21-30 MIN [id number] [id number] Diagnos is: ICD-10- CM I10 Essenti al (primar y) hyperte nsion<b r/> BINA BAUMANN 06/19 [facility] ACUPUNCT W/O STIMUL 15 MIN 61125-5.61 [id number] Diagnos is: ICD-10- CM R52 Pain, unspeci fied
RICHARD THOMAS 06/20 [facility] OFFICE O/P NEW LOW 30-44 MIN [id number] [id number] Diagnos is: ICD-10- CM J34.2 Deviate d nasal septum< br/> ALBERTO ESTRADA 06/20 [facility] PSYCH DIAGNOSTIC EVALUATION [id number] Diagnos is: ICD-10- CM F32.A Depress ion, unspeci fied
MATA GROSS M 07/03 [facility] Outpatient Encounter [id number] ADELA GRANADO 07/03 [facility] Outpatient Encounter [id number] [id number] 07/03 [facility] BREATHING CAPACITY TEST [id number] [id number] Diagnos is: ICD-10- CM R06.00 Dyspnea , unspeci fied
CHETNA ARNDT 07/03 [facility] HC PRO PHONE CALL 5-10 MIN [id number] Diagnos is: ICD-10- CM Z13.89 Encount er for screeni ng for other disorde r
MAIN,RENO NNE K 07/09 [facility] PSYCH DIAGNOSTIC EVALUATION [id number] [id number] Diagnos is: ICD-10- CM F90.0 Attn-de fct hyperac tivity disorde r, predom inatten tive type
JESS MAURICIOSHASHANKMaria EstherMATA SURESHY M 07/10 [facility] OFFICE O/P EST MOD 30-39 MIN 66606-7.61 [id number] Diagnos is: ICD-10- CM J34.2 Deviate d nasal septum< br/> ALBERTO ESTRADA 07/12 [facility] PSYTX W PT 60 MINUTES 83984-9.61 [id number] Diagnos is: ICD-10- CM F33.41 Major depress vidal disorde r, recurre nt, in partial remissi on
JAKE JEAN A 07/17 [facility] OFFICE O/P EST LOW 20-29 MIN [id number] [id number] Diagnos is: ICD-10- CM R53.82 Chronic fatigue , unspeci fied
SISSY LEDEZMA B 07/18 [facility] HC PRO PHONE CALL 11-20 MIN 61863-3.61 [id number] Diagnos is: ICD-10- CM I10 Essenti al (primar y) hyperte nsion<b r/> BINA BAUMANN 07/19 [facility] SELF CARE MNGMENT TRAINING 68943-4.61 [id number] Diagnos is: ICD-10- CM M79.671 Pain in right foot
SANTANA STEELE 08/07 [facility] Outpatient Encounter [id number] 08/08 [facility] HC PRO PHONE CALL 5-10 MIN [id number] [id number] Diagnos is: ICD-10- CM Z13.89 Encount er for screeni ng for other disorde r
RENO QUACH NNE K 08/20 [facility] Outpatient Encounter [id number] [id number] 08/20 [facility] OFFICE O/P EST HI 40-54 MIN 05310-4.61 [id number] Diagnos is: ICD-10- CM R53.82 Chronic fatigue , unspeci fied
LEOPOLDO GUERRERO L 09/03 [facility] Outpatient Encounter [id number] [id number] 09/04 [facility] NEUROMUSCU LAR REEDUCATIO N 18282-3.61 [id number] Diagnos is: ICD-10- CM M25.552 Pain in left hip<br/ > SANTANA STEELE L 09/[address] [facility] OFFICE O/P NEW LOW 30-44 MIN 58414-3.61 [id number] Diagnos is: ICD-10- CM H52.03 Hyperme tropia, bilater al
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
Sherine HOLM ISAAC R 09/27 [facility] Outpatient Encounter [id number] [id number] 10/08 [place] [facility] PSYCH DIAG EVAL W/MED SRVCS 10697-2.61 [id number] Diagnos is: ICD-10- CM F41.9 Anxiety disorde r, unspeci fied
LEEANNAAB IGAPETROS E 10/09 [facility] [place] [facility] Outpatient Encounter [id number] [id number] 10/14 [place] [facility] [place] [facility] Outpatient Encounter [id number] [id number] 10/15 [facility] SELF CARE MNGMENT TRAINING [id number] [id number] Diagnos is: ICD-10- CM M25.552 Pain in left hip<br/ > SANTANA STEELE 10/16 [facility] OFFICE O/P EST MOD 30-39 MIN [id number] [id number] Diagnos is: ICD-10- CM R09.81 Nasal congest ion<br/ > ALBERTO ESTRADA 10/16 [facility] [place] [facility] Outpatient Encounter [id number] [id number] 10/16 [facility] OFF[facility] O/P EST LOW 20-29 MIN [id number] [id number] Diagnos is: ICD-10- CM L70.8 Other acne
CESAR LEOPOLDO L 10/25 [facility] [place] [facility] Outpatient Encounter [id number] [id number] 10/28 [place] [facility] [place] [facility] Outpatient Encounter [id number] [id number] 11/13 [place] [facility] [place] [facility] Outpatient Encounter [id number] 11/18 [facility] MANUAL THERAPY 1/> REGIONS [id number] [id number] Diagnos is: ICD-10- CM M25.552 Pain in left hip<br/ > SANTANA STEELE 11/20 [facility] [place] [facility] OFFICE O/P EST HI 40-54 MIN [id number] [id number] Diagnos is: ICD-10- CM F41.9 Anxiety disorde r, unspeci fied
[place],AB IGAIL E 11/28 [facility] [place] [facility] Outpatient Encounter [id number] [id number] SHAHANA NGUYEN 12/09 [place] [facility] [place] [facility] Outpatient Encounter [id number] [id number] 12/11 [facility] [place] [facility] OFFICE O/P EST LOW 20-29 MIN [id number] [id number] Diagnos is: ICD-10- CM R09.81 Nasal congest ion<br/ > JESSE BRUCE 12/13 [facility] Outpatient Encounter [id number] 12/17 [facility] MANUAL THERAPY 1/> REGIONS [id number] [id number] Diagnos is: ICD-10- CM M25.552 Pain in left hip<br/ > SANTANA STEELE 12/24 [facility] [place] [facility] Outpatient Encounter [id number] 12/26 [facility] [place] [facility] Outpatient Encounter [id number] [id number] 12/26 [facility] OFFICE O/P EST MOD 30-39 MIN [id number] [id number] Diagnos is: ICD-10- CM E66.01 Morbid (severe ) obesity due to excess calorie s
LEOPOLDO GUERRERO 12/31 [facility] [place] [facility] Outpatient Encounter [id number] [id number] 01/01 [place] [facility] [place] [facility] Outpatient Encounter [id number] [id number] 01/16 [place] [facility] [place] [facility] OFFICE O/P EST HI 40-54 MIN [id number] [id number] Diagnos is: ICD-10- CM F41.9 Anxiety disorde r, unspeci fied
[place],AB IGAIL E 01/16 [place] [facility] [place] [facility] Outpatient Encounter [id number] [id number] 01/30 [place] [facility] [place] [facility] Outpatient Encounter [id number] [id number] 02/04 [place] [facility] OFFICE O/P EST LOW 20-29 MIN [id number] [id number] Diagnos is: ICD-10- CM F90.0 Attn-de fct hyperac tivity disorde r, predom inatten tive type
RICK DEL ROSARIO A 02/12 [facility] [place] [facility] Outpatient Encounter [id number] [id number] 03/19 [place] [facility] [place] [facility] Outpatient Encounter [id number] [id number] 03/20 [place] [facility] [place] [facility] Outpatient Encounter [id number] [id number] 04/03 [place] [facility] [place] [facility] Outpatient Encounter [id number] [id number] 04/04 [place] [facility] [place] [facility] Outpatient Encounter [id number] [id number] SA SAI BRITT R 04/07 [place] [facility] [place] [facility] Outpatient Encounter [id number] [id number] 04/08 [place] [facility] [place] [facility] Outpatient Encounter [id number] [id number] RASHID GANNONIDA A 04/08 [place] [facility] [place] [facility] Outpatient Encounter [id number] [id number] 04/22 [place] [facility] [place] [facility] Outpatient Encounter [id number] [id number] 04/23 [place] [facility] [place] [facility] Outpatient Encounter [id number] 04/30 [place] [facility] [place] [facility] Outpatient Encounter [id number] [id number] 05/07 [place] [facility] [place] [facility] Outpatient Encounter [id number] 05/28 [place] [facility] [place] [facility] Outpatient Encounter [id number] 05/29 [facility] [place] [facility] OFF/OP CNSLTJ NEW/EST MOD 40 [id number] Diagnos is: ICD-10- CM M54.50 Low back pain, unspeci fied
AUSTIN ISABEL 06/02 [facility] QNHP OL DIG ASSMT&MGMT 11-20 [id number] Diagnos is: ICD-10- CM E66.01 Morbid (severe ) obesity due to excess calorie s
MARIA LUZ GATES 06/03 [facility] [place] [facility] Outpatient Encounter [id number] GOGO TAVERAS 06/04 [place] [facility] [place] [facility] Outpatient Encounter [id number] [id number] 06/09 [place] [facility] [place] [facility] Outpatient Encounter [id number] [id number] 06/10 [place] [facility] [place] [facility] Outpatient Encounter [id number] 06/23 [place] [facility] [place] [facility] OFFICE O/P EST MOD 30 MIN [id number] Diagnos is: ICD-10- CM J34.2 Deviate d nasal septum< br/> HAMLAR,VAL ID 03/28 /2024 [place] [facility] [place] [facility] [id number] [id number] 06/29 [place] [facility] [place] [facility] Outpatient Encounter [id number] 07/17 [place] [facility] [place] [id number] [id number] 07/20 [place] [facility] [place] [facility] Outpatient Encounter [id number] [id number] SA RA Nata BRITT 07/20 [place] [facility] [place] [facility] Outpatient Encounter [id number] [id number] 07/21 [place] [facility] [place] [facility] Outpatient Encounter [id number] [id number] 07/21 [place] [facility] [place] [facility] HC PRO PHONE CALL 11-20 MIN [id number] [id number] Diagnos is: ICD-10- CM O09.521 Supervi ozzie of elderly multigr avida, first trimest er
STEVE SOLOMON 07/21 [place] [facility] [place] [facility] Outpatient Encounter [id number] [id number] 07/21 [place] [facility] [place] [facility] Outpatient Encounter [id number] Kajal MCDONALD 07/22 [place] [facility] [place] [facility] Outpatient Encounter [id number] [id number] 07/22 [place] [facility] En[facility] [id number] [id number] 08/07 [place] [facility] [place] [facility] Outpatient Encounter [id number] [id number] 08/11 [place] [facility] [place] [facility] HC PRO PHONE CALL 5-10 MIN [id number] [id number] Diagnos is: ICD-10- CM O09.521 Supervi ozzie of elderly multigr avida, first trimest er
SOLOMON, STEVE K 09/04 [place] [facility] [place] [facility] HC PRO PHONE CALL 5-10 MIN [id number] [id number] Diagnos is: ICD-10- CM O09.521 Supervi ozzie of elderly multigr avida, first trimest er
SOLOMON, STEVE K 09/07 [place] [facility] [place] [facility] Outpatient Encounter [id number] 09/23 [place] [facility] [place] [facility] Outpatient Encounter [id number] 09/23 [place] [facility] [place] [facility] HC PRO PHONE CALL 5-10 MIN [id number] [id number] Diagnos is: ICD-10- CM O09.522 Supervi ozzie of elderly multigr avida, second trimest er
SOLOMON, STEVE K 10/28 [place] [facility] [place] [facility] Outpatient Encounter [id number] [id number] 10/29 [place] [facility] Procedures Combined list of: 1) Procedures from Department of Veterans Affairs facilities going back up to thelast 18 months, not all [place] non-surgical procedures are included; 2) All procedures from the Department of Defense facilities. Procedure Procedure Type Code Date Perfomer Comments Sour e RANGE OF MOTION MEASUREMENTS AND REPORT (SEPARATE PROCEDURE); EACH EXTREMITY (EXCLUDING HAND) OR EACH TRUNK SECTION (SPINE) 2 [facility] EDUCATIONAL SUPPLIES, SUCH BOOKS, TAPES, AND PAMPHLETS, FOR THE PATIENT'S EDUCATION AT COST TO PHYSICIAN OR OTHER QUALIFIED HEALTH STEEPING PRESS TENDER 8 DoD HEPATITIS A VACCINE (HEPA), ADULT DOSAGE, FOR INTRAMUSCULAR USE 8 DoD SKIN TEST; TUBERCULOSIS, INTRADERMAL 8 DoD PHYS/OTH QUALIFIED HEALTH STEEPING PRESS TENDER QUALIFIED,EDUCATION, TRAIN,LICENSURE/REGU LATION (WHEN APPLICABLE) EDUC SER RENDERED TO PATS IN A GRP SETTING (EG,,OBESITY ,OR DIABETIC INSTRUCT) 8 DoD ANTHRAX VACCINE, FOR SUBCUTANEOUS OR INTRAMUSCULAR USE 9 [facility] COLLECTION OF VENOUS BLOOD BY VENIPUNCTURE 9 [facility] INDIVIDUAL PSYCHOTHERAPY, INSIGHT ORIENTED, BEHAVIOR MODIFYING AND/OR SUPPORTIVE, IN AN OFFICE OR OUTPATIENT FACILITY, APPROXIMATELY 20 TO 30 MINUTES [id number] WITH THE PATIENT 9 [facility] RANGE OF MOTION MEASUREMENTS AND REPORT (SEPARATE PROCEDURE); EACH EXTREMITY (EXCLUDING HAND) OR EACH TRUNK SECTION (SPINE) 9 [facility] SKIN TEST; TUBERCULOSIS, INTRADERMAL 9 [facility] COLLECTION OF VENOUS BLOOD BY VENIPUNCTURE 9 [facility] PSYCHIATRIC DIAGNOSTIC INTERVIEW EXAMINATION 9 [facility] AUDIOMETRIC TESTING OF GROUPS 9 [facility] APPLICATION OF A MODALITY TO 1 OR MORE AREAS; HOT OR COLD PACKS 9 [facility] APPLICATION OF A MODALITY TO 1 OR MORE AREAS; HOT OR COLD PACKS 9 [facility] SCREENING [place]AOU SMEAR; OBTAINING, PREPARING AND CONVEYANCE OF CERVICAL OR VAGINAL SMEAR TO LABORATORY 9 [facility] INDIVIDUAL PSYCHOTHERAPY, INSIGHT ORIENTED, BEHAVIOR MODIFYING AND/OR SUPPORTIVE, IN AN OFFICE OR OUTPATIENT FACILITY, APPROXIMATELY 45 TO 50 MINUTES [id number] WITH THE PATIENT 9 [facility] THERAPEUTIC PROCEDURE, 1 OR MORE AREAS, EACH 15 MINUTES; THERAPEUTIC EXERCISES TO DEVELOP STRENGTH AND ENDURANCE, RANGE OF MOTION AND FLEXIBILITY 9 [facility] SELF-CARE/HOME MANAGMENT TRAIN (EG,ACT OF DAILY LIVING (ADL) &COMPENSAT TRAIN,MEAL PREPARATION,SAFETY PROCS,AND INSTRUCT IN USE OF ASST TECHNOLOGY DEV/ADPT EQUIP) DIR ONE-ON-ONE CONT,EA 15 MINUTES 9 [facility] PSYCHIATRIC DIAGNOSTIC INTERVIEW EXAMINATION 9 [facility] INJECTION, PENICILLIN G BENZATHINE, UP TO 2,400,000 UNITS 8 [facility] THERAPEUTIC PROCEDURE, 1 OR MORE AREAS, EACH 15 MINUTES; THERAPEUTIC EXERCISES TO DEVELOP STRENGTH AND ENDURANCE, RANGE OF MOTION AND FLEXIBILITY 8 [facility] HEPATITIS A VACCINE (HEPA), ADULT DOSAGE, FOR INTRAMUSCULAR USE 8 [facility] AUDIOMETRIC TESTING OF GROUPS 8 [facility] Range Of Motion Evaluation Of Extremity Range Of Motion Evaluation Of Extremity [id number] 2 ROM SALAZAR [facility] Psychotherapy Individual Approximately 30 Minutes Psychotherapy Individual Approximately 30 Minutes [id number] MANSOOR TOLBERT [facility] Range Of Motion Evaluation Of Extremity Range Of Motion Evaluation Of Extremity 25790 9 MAYA BECKMAN [facility] Audiometry Group Testing Audiometry Group Testing [id number] STEVAN TAYLOR [facility] Modalities Heat Hot Packs Modalities Heat Hot Packs [id number] [facility] Physical Medicine - Group Physical Therapy Se ion Physical Medicine - Group Physical Therapy Session [id number] 9 [facility] Modalities Heat Hot Packs Modalities Heat Hot Packs [id number] 9 [facility] Physical Medicine - Group Physical Therapy Se ion Physical Medicine - Group Physical Therapy Session [id number] [facility] Screening papanicolaou smear; obtaining, preparing and conveyance of cervical or vaginal smear to laboratory 9 CANDACE CORDOVA [facility] Clinical Social Work Individual Outpatient Counseling 45 Minutes Clinical Social Work Individual Outpatient Counseling 45 Minutes [id number] 9 CASSIDY MONTES [facility] Physical Therapy: ___ Se ion Segments, 15 Minutes Each Physical Therapy: ___ Session Segments, 15 Minutes Each [id number] 9 [facility] Modalities Heat Hot Packs Modalities Heat Hot Packs 80463 9 [facility] Physical Medicine - Group Physical Therapy Se ion Physical Medicine - Group Physical Therapy Session 15313 9 [facility] Patient Counseling Medical Management Individual Patient Patient Counseling Medical Management Individual Patient [id number] 9 GERALD FLORES [facility] A e /Interv Discharge Meds Reconciled W/ Current Meds List 9 GERALD FLORES [facility] Physical Therapy Service Evaluation Physical Therapy Service Evaluation [id number] VICTOR HUGO LAWRENCE [facility] Phys Therapy Education Self Care Training - Per 15 Minutes Phys Therapy Education Self Care Training - Per 15 Minutes [id number] 9 VICTOR HUGO LAWRENCE [facility] Psychiatric Diagnostic Evaluation Comprehensive Examination Psychiatric Diagnostic Evaluation Comprehensive Examination [id number] 9 CASSIDY MONTES [facility] Patient Training And Self-Care Skills Patient Training And Self-Care Skills 94205 9 GERALD FLORES [facility] Patient Counseling Medical Management Individual Patient Patient Counseling Medical Management Individual Patient [id number] 9 GERALD FLORES A e /Interv Discharge Meds Reconciled W/ Current Meds List 9 GERALD FLORES Patient Counseling Medical Management Individual Patient Patient Counseling Medical Management Individual Patient [id number] 8 GERALD FLORES A e /Interv Discharge Meds Reconciled W/ Current Meds List 8 GERALD FLORES A isted Exercises For ROM Assisted Exercises For ROM 85610 8 CLARY NDIAYE Occupational Therapy Evaluation Occupational Therapy Evaluation 01706 8 CLARY NDIAYE Oropharynx Culture Streptococcus Group A Beta Hemolytic Oropharynx Culture Streptococcus Group A Beta Hemolytic 07148 8 GERALD FLORES Physician Supervised Injection Intramuscular Antibiotic Physician Supervised Injection Intramuscular Antibiotic 58350 8 GERALD FLORES Audiometry Group Testing Audiometry Group Testing 66245 8 AIME MEADE Physician Supervised Services Provision Of Educational Supplies Physician Supervised Services Provision Of Educational Supplies 23389 8 LOS HART Threshold Audiogram (Pure Tone) Threshold Audiogram (Pure Tone) 41174 8 LESLY CHRISTENSEN Audiometry Group Testing Audiometry Group Testing 70450 8 LESLY CHRISTENSEN Special Physician Services Analysis Of Computerized Data Special Physician Services Analysis Of Computerized Data 56921 8 LESLY CHRISTENSEN Physician Supervised Services Provision Of Special Supplies Physician Supervised Services Provision Of Special Supplies 52328 8 LESLY CHRISTENSEN Physician Supervised Group Educational Services 8 LESLY CHRISTENSEN Ear mold/insert, not disposable, any type 8 LESLY CHRISTENSEN Ear Protector Attenuation Measurements Ear Protector Attenuation Measurements 34327 8 LESLY CHRISTENSEN Skin Test Anergy Tuberculin Intradermal Skin Test Anergy Tuberculin Intradermal 58804 8 JOANNE TABARES Hepatitis A Vaccine Adult Dosage (Intramuscular Use) Hepatitis A Vaccine Adult Dosage (Intramuscular Use) 98469 8 CLARISSA [facility] Vaccines Viral Polio, Inactivated Vaccines Viral Polio, Inactivated 39151 8 CLARISSA [facility] Meningococcal Polysaccharide Vaccine Meningococcal Polysaccharide Vaccine 95129 8 CLARISSA [facility] Immunization Administration By Injection, Each Additional Vaccine 8 CLARISSA [facility] Td Vaccine Td Vaccine 97182 8 [facility] Immunization Administration By Injection, One Vaccine Immunization Administration By Injection, One Vaccine 26139 8 [facility] Social History Combined list of available smoking, tobacco, and other social history from Department of Defense and 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 Social History Type Response Date Comment Sourc e Tobacco smoking status [facility] VA-TOBACCO FORMER USER 07/22/2023 [facility] History of tobacco use SC-TOBACCO QUIT 1 TO < 5 YRS 07/22/2023 [facility] History of tobacco use VA-TOBACCO FORMER USER 06/06/2022 [facility] History of tobacco use PREVIOUS SMOKER 11/21/2021 [facility] History of tobacco use VA-TOBACCO FORMER USER 09/06/2021 [facility] History of tobacco use VA-TOBACCO USER E VERY DAY 11/03/2020 [facility] History of tobacco use VA-TOBACCO USE WI 30 MIN OF WAKEUP 05/06/2018 [facility] This section is an empty social history section. [facility] Plan of Care List of future care activities from Department of 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 Additional future care activities may be listed in the Assessment and Plan section. Date/Time Care Activity Care Activity Detail Facili ty 04/13/2024 AMBULATORY - NONE AMBULATORY - NONE [facility]
--- OUTSIDE RECORDS SUMMARY | 2023-11-27 07:52 | XMS_ITS | Encounter Summary ---
Author Organization [facility] Address [address] [place] [address]. [place] [address] Care Team Providers Care Rn Neurology Name Role Phone Unavailable Primary Care Provider Unavailabl e Encounter Details Date Type Department Care Team (Late st Contact Info) Description 09/29/2023 Medical Correspondence [facility] Info Mgmt Srvcs [address] [place] [address] Scan, Non-Provider Social History Tobacco Use Types Packs/Day Years Used Date Smoking Tobacco: Never Assessed Sex and Gender Information Value Date Recorded Sex Assigned at Not on file Gender Identity Not on file Sexual Orientation Not on file documented as of this encounter Plan of Treatment Not on file documented as of this encounter Visit Diagnoses Not on filedocumented in this encounter
--- OUTSIDE RECORDS SUMMARY | 2023-11-27 07:52 | XMS_ITS | Referral Summary ---
Author Organization [facility] Address [address] [place] [address] Care Team Providers Care Caretaker Name Role Phone Unavailable Primary Care Provider Unavailabl e Source Comments Patient records contain information from all sites at [facility]. For routine questions regarding patient records, call [phone] during business hours, M-F 8:00 AM - 5:00 PM Central Time. Record requests for emergency care only can be directed to [phone] at any time.[facility] Encounters Date Type Department Care Team Description 09/02/2023 5:30 PM CDT - 09/02/2023 11:59 PM CDT Hospital Encounter Department of Laboratory Medicine in [address] [phone] Loreta Ramirez APRN, C.N.P. Encounter For Screening For Chromosomal Anomalies (HCC) Discharge Disposition: Home or Self Care 09/02/2023 Orders Only Department of Obstetrics and Gynecology in [address] [phone] Loreta Ramirez APRN, C.N.P. Encounter For Screening For Chromosomal Anomalies (HCC) (Primary Dx) 09/02/2023 Clinical Communication Department of Obstetrics and Gynecology in [address] [phone] Loreta Ramirez APRN, C.N.P. Results (Panorama Screen ) from Last 3 Months Allergies No known active allergies Medications Medication Sig Dispensed Refills Start Date End Date Status pyridoxine HCl, vitamin B6, (PYRIDOXINE, VITAMIN B6, ORAL) Take by mouth. Active NIFEdipine (ADALAT CC) 30 mg ER tablet Take 1 tablet by mouth daily. 07/19/2022 Active famotidine (PEPCID) 20 mg tablet Take 1 tablet by mouth 2 (two) times a day. 07/17/2023 Active cholecalciferol (VITAMIN D3) 125 mcg (5,000 Unit) tablet Take by mouth daily. Active cyanocobalamin, vitamin B-12, (VITAMIN B-12 ORAL) Take by mouth. Active prenat.vits,kandy,min-ir on-folic tablet Take 1 tablet by mouth daily. 07/17/2023 Active Active Problems Patient Care Coordination No te Formatting of this note migh t be different from the original. Boyfrienmary Ulloa. His first baby! She is moving [facility] during the (likely summertime) Problem Noted Date Diagnosed Date Complication Morbid Obesity Body Mass Index Greater Than 40 08/13/2023 Body Mass Index 50.0 To 59.9 Adult 08/13/2023 Elderly Multigravida Greater Than 35 Y ear Old 08/13/2023 Overview (08/13/2023): Desires NIP Dennisoh, scheduled 08/20/23 Preexisting Hypertension 08/13/2023 Overview (08/13/2023): Baseline preeclampsia labs collected at [facility] OB Will begin 81 mg ASA at 12 weeks Depression Anxiety 08/13/2023 High Risk 08/13/2023 Overview (08/13/2023): BMI >50 Chronic HTN Elderly multigravida Anxiety/depression We discussed advanced level US, MFM consult. She is very likely moving to [facility], and will be transferring her care closer to there once moved. No consults placed yet. Estimated Date of Delivery Comme nts Yes 03/13/2024 Based on Ultraso und Immunizations Name Administration Dates Next Due 4vHPV (discontinued) 02/11/2012,04/30/19 11,08/29/2008, 009 Anthrax 01/12/2009,10/21/2008 H1N1 Inj 02/10/2009 HepA Adult 10/21/2007,04/13/2007 IPV 04/13/2007 Influenza Laiv (Nasal) (Discontinued) 02/03/2008,04/13/2007 Influenza, Seasonal, Injectable 12/31/2012,12/08,06/04/2011 MCV4 (Menactra)(Discontinued) 04/13/2007 Td (Adult), adsorbed 09/11/2018 Tdap 10/22/2011,04/13/2007 TyVi (inj) 10/21/2008 Social History Tobacco Use Types Packs/Day Years Used Date Smoking Tobacco: Former Cigarettes 2 006 - 05/03/2021 Smokeless Tobacco: Never Tobacco Cessation:Counseling Given: Not Answered Comments:Started at age 15, quit in 2021 Alcohol Use Standard Drinks/Week Comments Not Currently 0 (1 standard drink = 0.6 oz pur e alcohol) [facility] Utilities Answer Date Recorded In the past 12 months has [employer] electric, gas, oil, or water company threatened to shut off services in your home? No 08/08/2023 PHQ-2 Answer Date Recorded PHQ-2 Score 1 08/13/2023 Depression Answer Date Recor ded PHQ-9 Total Score (max 27) 4 08/12 Dental Answer Date Recorded Dental: Regular Dentist Unknown 08/05/19 24 Estimated Date of Delivery Comme nts Yes 03/13/2024 Based on Ultraso und Sex and Gender Information Value Date Recorded Sex Assigned at Female 08/08/2023 3:48 PM CDT Gender Identity Female 08/08/2023 3:48 PM CDT Sexual Orientation Straight 08/08/2023 3: 48 PM CDT Last Filed Vital Signs Vital Sign Reading Time Taken Comments Blood Pressure 123/75 08/13/2023 3:02 PM CDT Pulse 85 08/13/2023 3:02 PM CDT Temperature - - Respiratory Rate - - Oxygen Saturation - - Inhaled Oxygen Concentration - - Weight 142 kg (312 lb 9.8 oz) 08/13/2023 3:02 PM CDT Height 164.9 cm (5' 4.92) 08/13/2023 3:20 PM CD T Body Mass Index 52.15 08/13/2023 3:02 PM CDT Plan of Treatment Not on file Goals Goal Patient Goal Type Associated Problems Recent Progress Patient-Stated? Author [facility] Care Plan for Healthy Care Plan [facility] Care Plan for Healthy No Support, [facility] - Nicotine Dependency Chronic Care Plan [facility] Care Plan for Healthy No Support, [facility] Procedures Procedure Name Priority Date/Time Associated Diagnosis Comments PANORAMA SCREEN Routine 09/02/2023 5:47 PM CDT Encounter For Screening For Chromosomal Anomalies (HCC) HCV AB SCRN , S Routine 08/13/2023 4:52 PM CDT Encounter For Supervision Of Normal Unspecified Trimester (HCC) HIV-1/-2 AG AND AB SCRN, PLASMA Routine 08/13/2023 4:52 PM CDT Encounter For Supervision Of Normal Unspecified Trimester (HCC) from Last 3 Months or Most Recently Relevant to Health Maintenance Results * Panorama Screen - Sent Out Lab (09/02/2023 5:47 PM CDT) Panorama Screen SEE COMMENT 09/16/2023 10:40 AM CDT [facility] Comment: For final report, select Lab-Send Out Lab Results hyperlink below. Blood (Blood, Venous) 09/02/2023 5:47 PM CDT 09/04/2023 7:02 AM CDT [facility] - 09/16/2023 10:40 AM CDT Specimen Information: Specimen ID: [id number] Specimen Type: Blood Specimen Collection Start Date: 09/02/2023 ??5:47 PM Specimen Received Date: 09/04/2023 ??7:02 AM Specimen ID: [id number] Specimen Type: Blood Specimen Collection Start Date: 09/02/2023 ??5:47 PM Specimen Received Date: 09/04/2023 ??7:02 AM Lety Hughes APRNNJooPJoo LAB GENETIC TE ST[facility] [address] [place] [address], [facility] [address] [place] [address] * Hepatitis C Virus Antibody Screen (08/13/2023 4:52 PM CDT) HCV Ab Scrn , S Negative Negative 08/14/2023 10:25 AM CDT [facility] Comment: Consumption of high-dose biotin supplement within 12 hours of blood collection for this test can cause false-negative results. Blood (Blood, Venous) 08/13/2023 4:52 PM CDT 08/14/2023 7:24 AM CDT Loreta Ramirez APRN, C.N.PJoo LAB MICROBIOLO GY - BLOOD ORDERABLES [facility] [address] [place] [address] [facility] [address] [place] [address] * HIV-1/-2 Ag and Ab Scrn, Plasma (08/13/2023 4:52 PM CDT) HIV Ag/Ab Scrn, P Negative Negative 08/14/2023 9:30 AM CDT [facility] Comment: Negative result does not rule out HIV infection. If exposure to HIV infection occurred <14 days ago, contact the laboratory to request addition of HIV-1/HIV-2 RNA detection , Plasma (HPP12). HIV-1 p24 Ag Scrn, P Negative Negative 08/14/2023 9:30 AM CDT [facility] Comment: Negative result does not rule out HIV infection. If exposure to HIV infection occurred <14 days ago, contact the laboratory to request addition of HIV-1/HIV-2 RNA detection , Plasma (HPP12). HIV-1 Ab Scrn, P Negative Negative 08/14/2023 9:30 AM CDT [facility] Comment: Negative result does not rule out HIV infection. If exposure to HIV infection occurred <14 days ago, contact the laboratory to request addition of HIV-1/HIV-2 RNA detection , Plasma (HPP12). HIV-2 Ab Scrn, P Negative Negative 08/14/2023 9:30 AM CDT [facility] Comment: Negative result does not rule out HIV infection. If exposure to HIV infection occurred <14 days ago, contact the laboratory to request addition of HIV-1/HIV-2 RNA detection , Plasma (HPP12). Blood (Blood, Venous) 08/13/2023 4:52 PM CDT 08/13/2023 8:38 PM CDT Loreta Ramirez APRN, C.N.P. LAB MICROBIOLO GY - BLOOD ORDERABLES [facility] [address] [place] [address], [facility] ECLR [facility] [address] [place] [address] from Last 3 Months or Most Recently Relevant to Health Maintenance Additional Health Concerns Active Problems Noted Date Diagnosed Date [facility] Care Plan for Healthy 08/30
--- OUTSIDE RECORDS SUMMARY | 2023-11-27 07:52 | XMS_ITS | Encounter Summary ---
Author Organization [facility] Address [address] [place] [address]. [place] [address] Care Team Providers Care Recruiting Team Lead Name Role Phone Unavailable Primary Care Provider Unavailabl e Encounter Details Date Type Department Care Team (Late st Contact Info) Description 09/24/2023 Medical Correspondence [facility] Info Mgmt Srvcs [address] [place] [address] Scan, Non-Provider Social History Tobacco [...]
--- OUTSIDE RECORDS SUMMARY | 2023-11-27 07:52 | XMS_ITS | Encounter Summary ---
Author Organization [facility] Address [address] [place] [address] Care Team Providers Care Dietetics Director Name Role Phone Unavailable Primary Care Provider Unavailabl e Encounter Details Date Type Department Care Team (Late st Contact Info) Description 09/02/2023 Orders Only Department of Obstetrics and Gynecology in [place], [place] [address] [place] [address] Loreta Ramirez, TREVOR, C.N.P. [address] [place] [address] Encounter For Screening For Chromosomal Anomalies (HCC) (Primary Dx) Social History Tobacco Use Types Packs/Day Years Used Date Smoking Tobacco: Former Cigarettes 2 006 - 05/03/2021 Smokeless Tobacco: Never Comments:Started at age 15, quit in 2021 Alcohol Use Standard Drinks/Week Comments Not Currently 0 (1 standard drink = 0.6 oz pur e alcohol) [facility] Utilities Answer Date Recorded In the past 12 months has e electric, gas, oil, or water company threatened [...] Orientation Straight 08/08/2023 3: 48 PM CDT documented as of this encounter Plan of Treatment Not on file documented as of this encounter Results * Panorama Screen - Sent Out Lab (09/02/2023 5:47 PM CDT) Panorama Screen SEE COMMENT 09/16/2023 10:40 AM CDT [facility] Comment: For final report, select Lab-Send Out Lab Results hyperlink below. Blood (Blood, Venous) 09/02/2023 5:47 PM CDT 09/04/2023 7:02 AM CDT [facility]ative [facility] - 09/16/2023 10:40 AM CDT Specimen Information: Specimen ID: [id number] Specimen Type: Blood Specimen Collection Start Date: 09/02/2023 ??5:47 PM Specimen Received Date: 09/04/2023 ??7:02 AM Specimen ID: [id number] Specimen Type: Blood Specimen Collection Start Date: 09/02/2023 ??5:47 PM Specimen Received Date: 09/04/2023 ??7:02 AM Loreta Ramirez APRN, C.N.P. LAB GENETIC TE [facility] [address] [address], [facility] [address] [place] [address] documented in this encounter Visit Diagnoses Diagnosis Encounter For Screening For Chromosomal Anomalies (HCC)- Primary Encounter For Screening For Chromosomal Anomalies (HCC) documented in this encounter Additional Health Concerns Assessment Noted Time PHQ-9 Depression Total Score: 4 08/13/19 24 3:08 PM CDT documented as of this encounter
--- OUTSIDE RECORDS SUMMARY | 2023-11-27 07:52 | XMS_ITS | Clinical Summary ---
Author Organization [facility] Address [address] [place] [address] Care Team Providers Care Law Firm Partner Name Role Phone Unavailable Primary Care Provider Unavailabl e Source Comments You are receiving this document as you are listed as the primary care provider,follow-up provider, or the patient has been referred to you for consultation.This is in compliance with the Medicare andMedicaid EHR Incentive Program,which states Providers who transition their patient to another setting of careor provider of care or refers their patient to another provider of care shouldprovide summary care record for each transition of care or referral. [email or web address] Social History Tobacco Use Types Packs/Day Years Used Date Smoking Tobacco: Never Assessed Sex and Gender Information Value Date Recorded Sex Assigned at Not on file Gender Identity Not on file Sexual Orientation Not on file Plan of Treatment Health Maintenance Due Date Last Done Comments Cervical Cancer Screening Due 1988 Hep C Screening (Preventive Services) 1988 HIV Screening (Preventive Services) 2004 Adult Preventive Visit 2006 DTaP/Tdap/Td (1 - Tdap) 2007 HepB (1) 2007 COVID-19 Vaccine (2022-2 4 season) 2022 Influenza (#1) 2023 Zoster/Shingles (1 of 2) 2038 HPV Vaccine Aged Out No longer eligi ble based on patient's age to complete this topic HepA Aged Out No longer eligi ble based on patient's age to complete this topic Hib Aged Out No longer eligi ble based on patient's age to complete this topic IPV (Polio) Aged Out No longer eligi ble based on patient's age to complete this topic MCV4 Aged Out No longer eligi ble based on patient's age to complete this topic Pneumococcal Aged Out No longer eligi ble based on patient's age to complete this topic Kailey Jackson Personal/Family Self 1990 [address] [place] [phone] Kailey Jackson [employer] Self 1990 [address] [place] [phone]
--- OUTSIDE RECORDS SUMMARY | 2023-11-27 07:52 | XMS_ITS ---
Author Organization [facility] Address [address] [place] [address] Care Team Providers Care Steam Pressure Chamber Operator Name Role Phone Unavailable Unavailable Unavailable Surgery Details Not on file Complications Check Surgery Details section. Procedure Estimated Blood Loss Check Surgery Details section. Procedure Findings Check Surgery Details section. Procedure Specimens Taken Check Surgery Details section.
--- OUTSIDE RECORDS SUMMARY | 2023-11-27 07:52 | XMS_ITS | Encounter Summary ---
Author Organization [facility] Address [address] [place] [address] Care Team Providers Care Fleet Maintenance Foreman Name Role Phone Unavailable Primary Care Provider Unavailabl e Reason for Referral * Consultation (Routine: Next available opening) - Pending Review Specialty Diagnoses / Procedures Referred By Jaci lagos Referred To Contact oliving machine operator Diagnoses Supervision of elderly multigravida, first trimester Jamia Reyes MD [facility] [place] [address] Referral ID Status Reason Start Date Expiration Date V isits Requested Visits Authorized [id number] Pending Review 09/30/2023 09/29/2024 1 1 Question Answer Is the patient being referred to Art Director by a [facility] ([facility]) provider? Yes Reason for Referral: Have orders been placed in [facility] (imaging, labs, etc.) that need to be completed prior to the patient's consult? No Scheduling Instructions: [facility] will call you to coordinate your care as prescribed by your provider. If you don't hear from a front office representative within 2 business days, please call . Additional Information: Retranscribed per Nurse Navigator request, referred by Dr Jamia Reyes with [facility] for Supervision of elderly multigravida, first trimester Comments Retranscribed per Nurse Navigator request, referred by Dr Jamia Reyes with [facility]: Yes If yes was is the [facility] Authorization Number: [id number] Phone number: [phone] Fax number: [phone] Please be aware that coverage of these services is subject to the terms and limitations of your health insurance plan. Call member services at your health plan with any benefit or coverage questions. [facility] will call you to coordinate your care as prescribed by your provider. If you don't hear from a front office representative within 2 business days, please call . Encounter Details Date Type Department Care Team (Late st Contact Info) Description 09/30/2023 Transcribe Orders GENERIC EXTERNAL DATA DEPARTMENT Provider, Generic External Data Supervision of elderly multigravida, first trimester (Primary Dx) Social History Tobacco Use Types Packs/Day Years Used Date Smoking Tobacco: Never Assessed Sex and Gender Information Value Date Recorded Sex Assigned at Not on file Gender Identity Not on file Sexual Orientation Not on file documented as of this encounter Plan of Treatment Scheduled Referrals Name Type Priority Associated Diagnoses Orde r Schedule Art Director Knife Cutter Referral Referral Routine: Next available opening Supervision of elderly multigravida, first trimester Ordered: 09/30/2023 documented as of this encounter Visit Diagnoses Diagnosis Supervision of elderly multigravida, first trimester- Primary documented in this encounter
--- OUTSIDE RECORDS SUMMARY | 2023-11-27 07:52 | XMS_ITS | Encounter Summary ---
Author Organization [facility] Address [address] [place] [address] Care Team Providers Care Fellmongery Worker Name Role Phone Unavailable Primary Care Provider Unavailabl e Reason for Visit * Reason Onset Date Comments Results 09/02/2023 Panorama Prenata l Screen Encounter Details Date Type Department Care Team (Latest Contact Info) Description 09/02/2023 Clinical Communication Department of Obstetrics and Gynecology in [place], [place] [address] [place] [address] Loreta Ramirez, TREVOR, C.N.P. [address] [place] [address] Results (Panorama Screen ) Social History Tobacco Use Types Packs/Day Years Used Date Smoking Tobacco: Former Cigarettes 2 006 - 05/03/2021 Smokeless Tobacco: Never Comments:Started at age 15, quit in 2021 Alcohol Use Standard Drinks/Week Comments Not Currently 0 (1 standard drink = 0.6 oz pur e alcohol) [facility] Utilities Answer Date Recorded In the [...] Diagnoses Not on filedocumented in this encounter Additional Health Concerns Assessment Noted Time PHQ-9 Depression Total Score: 4 08/13/19 24 3:08 PM CDT documented as of this encounter
--- OUTSIDE RECORDS SUMMARY | 2023-11-27 07:52 | XMS_ITS | Encounter Summary ---
Author Organization [facility] Address [address] [place] [id number] Care Team Providers Care Bundle Clerk Name Role Phone Unavailable Primary Care Provider Unavailabl e Reason for Visit * Reason Comments Ultrasound L2-AMA, BMI, Essenti al (primary) HTN Encounter Details Date Type Department Care Team (Late st Contact Info) Description 10/14/2023 PRE VISIT [facility] [place] [address] [place] [address] Stacie Archuleta RN Ultrasound (L2-AMA, BMI, Essential (primary) HTN) Social History Tobacco Use Types Packs/Day Years Used Date Smoking Tobacco: Never Assessed Estimated Date of Delivery Comme nts Yes [...]
--- OUTSIDE RECORDS SUMMARY | 2023-11-27 07:52 | XMS_ITS | Encounter Summary ---
Author Organization [facility] Address [address] [place] [address] Care Team Providers Care Track Worker Name Role Phone No Ref-Primary, Physician Primary Care Provider Reason for Visit * Reason Comments Ultrasound L2-AMA, BMI, HTN Encounter Details Date Type Department Care Team (Late st Contact Info) Description 10/21/2023 2:45 PM CDT Office Visit [facility] [place] [address] [place] [address] Ze[facility] [address] [facility] [place], [place] [id number] Derek Bautista MD [address] [place] [address] Multigravida of advanced maternal age in second trimester (Primary Dx); Obesity affecting in second trimester, unspecified obesity type; Hypertension affecting in second trimester Social History Tobacco Use Types Packs/Day Years Used Date Smoking Tobacco: Never Assessed Adolescent Education Answer Date Record ed Getting School Help Needed Not on file 10/20 Estimated Date of Delivery Comme nts Yes 03/13/2024 Based on Ultraso und Sex and Gender Information Value Date Recorded Sex Assigned at Not on file Gender Identity Not on file Sexual Orientation Not on file documented as of this encounter Progress Notes * Derek Bautista MD - 10/21/2023 2:45 PM CDT Please see Imaging tab under Chart Review for details of today's US at the [facility]. Derek Bautista MD Maternal- Medicine documented in this encounter Nursing Notes * Stacie Archuleta, RN - 10/21/2023 2:45 PM CDT Patient presents to [facility] for L2 at 19w3d due to AMA, BMI, HTN. Denies LOF, vaginal bleeding or cramping/contractions. SBAR given to [facility] MD, see their note in Epic. documented in this encounter Plan of Treatment Not on file documented as of this encounter Visit Diagnoses Diagnosis Multigravida of advanced maternal age in second trimester- Primary Obesity affecting in second trimester, unspecified obesity type Hypertension affecting in second trimester documented in this encounter Care Teams Track Worker Relationship Specialty Start Date End Date No Ref-Primary, Physician PCP - General 10/20/23 documented as of this encounter
--- OUTSIDE RECORDS SUMMARY | 2023-11-27 07:52 | XMS_ITS | Encounter Summary ---
Author Organization [facility] Address [address] [place] [address] Care Team Providers Care Chip Machine Operator Name Role Phone No Ref-Primary, Physician Primary Care Provider Encounter Details Date Type Department Care Team (Latest Contact Info) Description 10/21/2023 Travel Social History Tobacco Use Types Packs/Day Years [...] Diagnoses Not on filedocumented in this encounter Care Teams Chip Machine Operator Relationship Specialty Start Date End Date No Ref-Primary, Physician PCP - General 10/20/23 documented as of this encounter
--- OUTSIDE RECORDS SUMMARY | 2023-11-27 07:52 | XMS_ITS | Clinical Summary ---
Author Organization [employer] [facility] Address [place], [place] [address] Care Team Providers Care Door And Arrival Attendant Name Role Phone MastersonAbiola Primary Care Provider [phone] Allergies No known active allergies Medications Medication Sig Dispensed Refills Start Date End Date Status NIFEdipine ER (ADALAT CC) 30 mg extended-Release tablet Take 1 Tablet by mouth once daily. 07/19/2022 Active famotidine (PEPCID) 20 mg tabletIndications:Ga stroesophageal reflux disease, unspecified whether esophagitis present Take 1 Tablet (20 mg) by mouth two times daily. 60 Tablet 07/17/2023 Active Asntnycs-Nr-Evz-Fe-F A tab tabletIndications:Va ginal bleeding in Take 1 Tablet by mouth once daily. 90 Tablet 07/17/2023 Active pyridoxine HCl, vitamin B6, (VITAMIN B-6 ORAL) Take by mouth. Active cholecalciferol, Vitamin D3, (Vitamin D-3) 5,000 unit tab tablet Take by mouth once daily. Active cyanocobalamin, vitamin B-12, (VITAMIN B-12 ORAL) Take by mouth. A ctive aspirin 81 mg cap Take 81 mg by mouth once daily. Active albuterol HFA (PRO-AIR; VENTOLIN; PROVENTIL) 90 mcg/actuation inhalerIndications:S OB (shortness of breath) Inhale 1-2 Puffs by mouth every 4 hours if needed for Shortness Of Breath or Wheezing. 1 Each 10/08/2023 Active imiquimod (ALDARA) 5 % creamIndications:Gen ital warts Apply 1 Packet topically to affected area(s) every Friday, Friday and Friday. Apply at bedtime and leave on skin for 8 hours. DO NOT USE WHILE . 24 Each 11 10/31/2023 Active Active Problems Problem Noted Date Diagnosed Date Genital warts 10/29/2023 Generalized anxiety disorder 06/05/2023 LGSIL of cervix of undetermined significance Overview: 09/29/13 ASCUS/HPV negative 05/07/16 NIL 12/27/19 LSIL/HPV negative 05/29/23 ASCUS/HPV+, HPV 16/18 Negative Plan: Colposcopy (patient as of 08/06/23, provider advised to discuss with her [place] [facility] provider) Chronic fatigue 05/07/2016 Overview: 09/09/2017: Cardiology evaluation. Benign palpitations. Vitamin D deficiency 10/30/2012 Overview: VITAMIN D TOTAL Date Value Ref Range Status 06/19/2017 22.9 (L) 30.0 - 80.0 ng/mL Final 10/17/2015 30.1 30.0 - 80.0 ng/mL Final 10/29/2012 18.4 (L) 30.0 - 80.0 ng/mL Final 06/20/2017: [place] [address] IU twice weekly x8 weeks, vit d 1000 IU daily thereafter. Lab only recheck 8 weeks. Comments Yes Resolved Problems Problem Noted Date Diagnosed Date Resolved Date Leukocytosis 06/20/2017 09/09/2017 CRP elevated 06/20/2017 09/09/2017 Encounter for surveillance o f contraceptive pills 05/07/2016 09/09/2017 Cholelithiasis 01/21/2013 08/08/2015 Current smoker 01/21/2013 10/08/2023 Obesity (BMI 35.0-39.9 without comorbidity) 02/11/2012 12/31/2012 UTI (lower urinary tract infection) 01/01/2012 02/11/2012 Acute URI 01/01/2012 02/11/2012 Vaginal delivery 12/31/2011 02/11/2012 Chronic back pain 10/15/2011 12/31/2012 Overview: Chronic low and mid back pain Supervision of other normal 07/02/2011 02/11/2012 Overview: Baby-FP If boy- circ Bottle feeding. GBS - neg Guerline Jackson [[id number]] GEOVANY 12/30/2011 (05/02/11 to present) [facility] Date: [birth year] Age (as of 08/12/11): 21 Race/Ethnicity: Not /Not History: Estimated Date of Delivery: 12/30/11 Gestational Age: 20w0d Blood Type: O Rh Positive Patient Address Address Home Phone Email [address] [phone] [email or web address] [phone] Patient Background Race/Ethnicity Marital Status Not /Not Single Clinical/Financial PCP Payor/Plan Unknown, Doctor / PRIME Comments/Complications: OB Patient Education Checklist Date/ Initial HIV test counseled 06/04/2011 MD Habits 06/04/2011 Nutrition/Vitamins 06/04/2011 MD Activities 06/04/2011 Common Problems 06/04/2011 Genetic Referral 06/04/2011 Nuchal /1st trim.screen Declined 06/04/2011 Quad Screen Still considering 06/04/2011 Quickening 07/02/2011 Anatomy scan Labor Signs/Symptoms Set up 1 hr GCT Anemia check * Kick Counts Preeclampsia Sympt. Breast/Bottle Family Planning PPTL - not desired. 12/16/2011 Birthing Options Labor/Delivery Baby Care Circumcision [place] 12/16/2011 Car Seat 12/16/2011 Post Dates 12/16/2011 Travel/Work *Anemia of : hemoglobin <11 in 1st and 3rd Trimester, <10.5 in Second trimester Problem List Never Reviewed Codes Priority Class Noted - Resolved Supervision of other normal V22.1 07/02/2011 - Present Chlamydia infection, current 647.20 06/07/2011 - Present Overview Signed 06/07/2011 9:00 AM by Alexa Ahn MD 06/04/2011 + chlamydia at 1st OB visit. Molluscum contagiosum 078.0 06/04/2011 - Present Major depression, single episode 296.20 04/13/2010 - Present Tobacco use disorder 305.1 11/17/2009 - Present Degeneration of Thoracic Intervertebral Disc 722.51 04/04/2009 - Present Vitals Enc. Date GA Fundal Height Presentation FHR Movement BP Weight Edema Albumin Glucose Urine ketones Dilation (cm) Effacement (%) Station 05/02/11 5w3d 116/64 mmHg 102.967 kg (227 lb) 05/12/11 6w6d Admission Dept: [facility] 06/04/11 10w1d 170 104/70 mmHg 102.059 kg (225 lb) 07/02/11 14w1d 0 cm 150 112/74 mmHg 102.059 kg (225 lb) 07/19/11 16w4d Admission Dept: [facility] 07/22/11 17w0d 160 not felt 110/60 mmHg 102.967 kg (227 lb) 08/12/11 20w0d 128/58 mmHg 103.148 kg (227 lb 6.4 oz) Height: 1.651 m (5' 5) Progress Notes (Episode) 05/02/2011 GA: 5w3d Patient appointment for initial OB education visit. Provided Beginnings book to patient. Discussed physical changes during , nutrition, safety in , and recommended care. Reviewed [facility]'s Preparing for Class Schedule. Reviewed OB history and completed [place] Risk assessment form. Discussed screening options and ordered 1st trimester labs. Pt already taking vitamins Mariya Vyas RN............... 05/02/2011 3:24 PM 1st OB appointment scheduled with Dr. Beavers on 06-04-11. Progress Notes (Episode) 06/04/2011 GA: 10w1d First OB today, see progress note. Lary Aguilera MD .................... 06/04/2011 5:41 PM FIRST EXAM Guerline Jackson is a 21 y.o. female, G 1, P 0, here today for a exam. Her LMP was 03/25/2011. 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 Current outpatient prescriptions Medication Sig Dispense Refill ? ? acetaminophen (TYLENOL) 325 mg tablet Take by mouth every 4 hours if needed. Max acetaminophen dose: 4000mg in 24 hrs. 0 ? ? ondansetron (ZOFRAN ODT) [address] 1 tablet on the tongue every 8 hours if needed for Nausea/Vomiting. 5 tablet 0 ? ? oxyCODONE-acetaminophen, 5-325 mg, (PERCOCET) per tablet Take 1 tablet by mouth every 4 hours if needed for Pain. Max acetaminophen dose: 4000mg in 24 hrs. 20 tablet 0 ? ? Vit-Iron Fumarate-FA ( VITAMIN WITH MINERALS) 28-0.8 mg Tab tablet Take 1 tablet by mouth once daily. 90 tablet 3 6 - 14 WEEKS: [place] Risk Assessment Form completed, Urine Culture Ordered and Domestic Abuse reviewed PRIOR OB HISTORY Patient has 0 children, . MENSTRUAL HISTORY LMP: Patient's last menstrual period was 03/25/2011. Cycle Regularity: Regular while on OCP, every 28-30 days, irregular off OCPs Flow: normal GEOVANY by LMP Calculator: 12/30/2011 Date Reliability: definite Menarche (age onset): 9 years of age On BCP's at conception: no MEDICAL HISTORY OB History Grav Para Term Abortions TAB SAB Ect Mult Living 1 0 0 0 0 0 0 0 0 0 # Outc Date GA Lbr Kehinde/2nd Wgt Sex Del Anes PTL Lv 1 CUR Past Medical History Diagnosis Date ? ? Degeneration of thoracic intervertebral disc 04/04/2009 Past Surgical History Procedure Date ? ? No previous surgery Family History: Family History Problem Relation Age of Onset ? ? Thyroid Mother Grave's ? ? Hypertension Father ? ? Hypertension Mother ? ? Lipids Father ? ? Good Health Sister ? ? Good Health Sister ? ? Good Health Brother Social History: History Substance Use Topics ? ? Smoking status: Current Everyday Smoker -- 0.5 packs/day Types: Cigarettes ? ? Smokeless tobacco: Never Used Comment: started smoking at age 15 ? ? Alcohol Use: No RISK FACTORS Exercise Times/wk: 0 Seat Belt Use: 100% Alcohol/day: 0 Meds/Drugs/ETOH Since LMP: No Control Method: none High Risk Behavior: none INFECTION HISTORY Current Drug Use: none HIV Risk Evaluation: low risk Hepatitis B Risk Evaluation: low risk Hepatitis B Immunized: yes TB Exposure: no Personal History of Genital Herpes: no Partner History of Genital Herpes: no Rash/Viral Illness Since LMP: No History of STD: chlamydia REVIEW OF SYSTEMS Not really having nausea, but appetite a bit down. No change to fatigue No Vaginal bleeding No other signs of . PHYSICAL EXAM BP 104/70 Pulse 88 Resp 16 Wt 102.059 kg (225 lb) LMP 03/25/2011 ? No General Appearance: Alert, appropriate appearance for age. No acute distress HEENT Exam: Grossly normal. Neck / Thyroid Exam: Supple, no masses, nodes or enlargement. Chest/Respiratory Exam: Normal chest wall and respirations. Clear to auscultation. Breast Exam: No dimpling, nipple retraction or discharge. No masses or nodes. Cardiovascular Exam: Regular rate and rhythm. S1, S2, no murmur, click, gallop, or rubs. Gastrointestinal Exam: Soft, non-tender, no masses or organomegaly. Pelvic Exam Female: Vulva and vagina appear normal - a few scattered molluscum lesions. Bimanual exam reveals normal 9-10 week uterus and adnexa. Rectovaginal Exam: Normal sphincter tone. No nodules, masses, indurations or tenderness noted. Lymphatic Exam: Non-palpable nodes in neck, clavicular, axillary, or inguinal regions. Musculoskeletal Exam: Back is straight and non-tender, full ROM of upper and lower extremities. Skin: no rash or abnormalities Neurologic Exam: Normal gait and speech, no tremor. Psychiatric Exam: Alert and oriented, appropriate affect. ASSESSMENT Satisfactory exam -- Demonstrates appropriate and health seeking behaviors toward her . Verbalizes good understanding of care schedule and the importance of coming to each visit as scheduled. Has supportive family relationship. PLAN Discussed orientation, general information, lifestyle, nutrition, exercise, warning signs, resources, lab testing, risk screening and discussed cystic fibrosis screening with patient. Questions answered. labs done today including: CBC, Type and Screen, HIV, Syphilis, Rubella, Hepatitis B, Urinalysis, Urine Culture, Wet Prep and Pap test. Vitamins Genetic Screening - declines Flu Shot Return to office in 3-4 week(s) for follow up. Lary Aguilera MD .................... 06/04/2011 2:10 PM Progress Notes (Episode) 07/02/2011 GA: 14w1d Comments/Complications: Date/Time: FriJul 02, 2011 5:19 PM Value: Ultrasounds: OB Patient Education Checklist Date/ Initial HIV test counseled 06/04/2011 Habits06/04/2011 Nutrition/Vitamins06/04/2011 Activities06/04/2011 Common Problems06/04/2011 Genetic Referral06/04/2011 Nuchal /1st trim.screenDeclined 06/04/2011 Quad ScreenStill considering 06/04/2011 QuickeningValue: 2 MD Anatomy scan Labor Signs/Symptoms Set up 1 hr GCT Anemia check * Kick Counts Preeclampsia Sympt. Breast/Bottle Family Planning PPTL Birthing Options Labor/Delivery Baby Care Circumcision [place] Car Seat Post Dates Travel/Work *Anemia of : hemoglobin <11 in 1st and 3rd TValue: rimester, <10.5 in Second trimester Guerline Jackson is a 21 y.o. female here today for a exam. See flowsheet for further information. Lary Aguilera MD Doing well, no nausea. Still pretty tired. Works 3 jobs so hard to get enough sleep - planning to go down to one job in the near future. No bleeding. No cramping. FOB is along today (won't usually be able to make it to appointments) they request ultrasound if possible. She finished the antibiotics for Chlamydia. Bedside ultrasound done - shows active ashraf IUP. Cardiac activity seen and estimated at 150 BPM PLAN: -- Follow up in 3-4 weeks -- Get plenty of rest -- Still considering quad screen, but probably not -- Will need [id number] for chlamydia next month. Progress Notes (Episode) 07/22/2011 GA: 17w0d Doing much better today. Was seen on 07/18 for abdominal tightening/cramping. Now is back to normal. Ultrasound was fine on Friday. Declines quad screen today. No movement yet. No bleeding. Feeling well otherwise PLAN: -- Follow up in 3 weeks -- 20 week ultrasound around that time. -- [id number] for chlamydia today Lary Aguilera MD .................... 07/22/2011 7:05 PM OB History Grav Para Term Abortions TAB SAB Ect Mult Living 1 0 0 0 0 0 0 0 0 0 # Outcome Date GA Labor/2nd Weight Sex Delivery Anes PTL Living Name Location MD 1 Current Dating Summary Working GEOVANY: 12/30/11 set by Lary Aguilera MD on 06/04/11 based on Est. Date of Conception on 04/08/11 Based On GEOVANY GA Dif Comments GA Cyc Lut BCP Entered By Date Last Menstrual Period on 03/25/11 12/30/11 Same Est. Date of Conception on 04/08/11 12/30/11 Working Lary Aguilera MD 06/04/11 Alternate GEOVANY Entry 12/30/11 Same Lary Aguilera MD 06/04/11 OB Results OB TYPE & SCREEN (Last result in 10 years) ABO Group RH Type ABO RH Antibody Screen -- -- (05/02/11) O Rh Positive (05/02/11) Negative OB HEP B & RPR (Last result in 365 days) HBSAG HEP B MARK AGN RPR TREPONEMA PALLI VDRL (05/02/11) Non-reactive -- -- (05/02/11) Non-Reactive No significant level of Treponema pallidum IgG Antibody detected. (If early infection is suspected, recommend repeat testing in 2 weeks) -- OB HIV (Last result in 365 days) Anti HIV 1/2 HIV Antibody CRC HIV Antibdy (05/02/11) Non-reactive -- -- OB HEME & UA RESULTS (Last 5 results in 365 days) Hemoglobin Platelet Count Protein (Urine) Glucose (Urine) Ketones (Urine) Nitrite (Urine) (05/12/11) 13.9 (05/12/11) 325 (07/19/11) Negative (07/19/11) Negative (07/19/11) Trace (07/19/11) Negative (05/02/11) 13.9 (05/02/11) 354 (05/02/11) Negative (05/02/11) Negative (05/02/11) Negative (05/02/11) Negative RUBLLA GC/CHL FFIBRO (Last result in 365 days) Rubella Screen Rublla Emma Byron Chlamydia GC Fibronect -- (05/02/11) 1.97 (07/22/11) Negative (07/22/11) Negative -- OB GLUCOSE RESULTS (Last 3 results in 294 days) None OB CULTURE RESULTS (Last 3 results in 294 days) 05/02/11 1531 URINE CULTURE Details OB GENETIC RESULTS (Last 3 results in 294 days) None Ultrasound Testing No data available Menstrual History No data available Assisted Reproductive Technology No data available Allergies as of 08/12/2011 Date Reviewed: 08/12/2011 No Known Allergies Current Medications (Current as of 08/12/11 at 3:27 PM) Outpatient Medications Quantity Refills Start End acetaminophen (TYLENOL) 325 mg tablet 0 06/04/2011 Sig : Take by mouth every 4 hours if needed. Max acetaminophen dose: 4000mg in 24 hrs. Route: Oral Class: Historical Med ondansetron (ZOFRAN ODT) 4 mg disintegrating tablet 5 tablet 0 05/12/2011 Sig : Place 1 tablet on the tongue every 8 hours if needed for Nausea/Vomiting. Route: On the Tongue PRN Reason(s): Nausea/Vomiting Class: Print oxyCODONE-acetaminophen, 5-325 mg, (PERCOCET) per tablet 20 tablet 0 05/12/2011 Sig : Take 1 tablet by mouth every 4 hours if needed for Pain. Max acetaminophen dose: 4000mg in 24 hrs. Route: Oral PRN Reason(s): Pain Class: Print Vit-Iron Fumarate-FA ( VITAMIN WITH MINERALS) 28-0.8 mg Tab tablet 90 tablet 3 04/28/2011 Sig : Take 1 tablet by mouth once daily. Route: Oral Cosign for Ordering: Accepted by Quynh Delaney MD on 04/29/2011 9:03 AM Class: SureScripts Medical History Smoking Status:Current Everyday Smoker (Cigarettes); 0.5 packs/day Smokeless Tobacco Status:Never Used Tobacco Use Comment:started smoking at age 15 Alcohol Use: No Drug Use:No Sexual Activity:Yes with Male partners Past Medical History Date Comment Degeneration of thoracic intervertebral disc 04/04/2009 Past Surgical History Date Comment NO PREVIOUS SURGERY Family History Problem (# of Occurrences) Relation (Name,Age of Onset) Good Health (3) Sister, Sister, Brother Hypertension (2) Father, Mother Lipids (1) Father Thyroid (1) Mother: Grave's Anticipatory Guidance Topics First Trimester Second Trimester Third Trimester 1. Clinic procedures / Outline care 2. HIV Counseling / Testing 3. Nutrition 4. Vitamins / Minerals 5. Dental / Vision Care 6. Weight gain 7. Seat belts 8. Exercise 9. Diagnosis 10. Hazards: Smoking, ETOH, Drugs, Overheating, Cats, Raw meat, Unpasteurized milk 11. Discomfort / Relief measures 12. Warning signs: Bleeding, Cramps, Abdominal pains, Dysuria, etc. 13. Brochures 1. Development / Quickening 2. Family / Father / Siblings 3. Hospital Pre-Admission / Tour? 4. Feeding plans (Breast / Bottle) 5. Exercise / Body Mechanics 6. Warning Signs: SROM, Bleeding, Pre-Term Labor 7. Baby's care provider (Please use notes), [facility] / Rooming in, Circumcision 8. Brochures 9. Classes 10. Support Person 11. Plans / Options 12. Sexuality 1. Discomforts / Relief Measures 2. Warning Signs 3. Activity Monitoring 4. Labor Signs: When and How to call 5. Travel Restrictions 6. Labor & Delivery routine 7. Electronic Monitoring 8. Episiotomy / Perineal Integrity 9. Labor & Delivery complications / Operative Delivery 10. Breast Care 11. Car seat 12. Discuss Post-Term Management 13. Early Discharge / Help at Home 14. Post Contraceptive plans *Strikethrough indicates discussed topic OB Anticipatory Guidance Link to Care Plan Report CARE PLAN REPORT Patient Education Report Patient Education Report OB Questionnaire (Positives Only) Past Medical History 7a. Have you ever been treated for depression? Yes. 13b. Do you use tobacco products? Yes. General Comments: Previously treated for depression Pt smoking approximately 1/2 pack cigarettes daily Pt has one cousin with mental disability Pt's maternal grandmother suffered a stillborn Pt's maternal aunt suffered 4 miscarriages Pt treated for Chlamydia 2009 Chickenpox - childhood Interviewed by: gemini OB Hyperlinks OB Labs Linked to Episode All Flowsheet Templates (all recorded) Ambulatory Vitals Flowsheet ED Triage Flowsheet MAR MINI-FLOWSHEET DATA Flowsheet Vital Signs Flowsheet DATA VALIDATE Flowsheet OB Vitals Flowsheet Historical OB Flowsheet-Retired as of 07/20/2011 see OB Flowsheet above Date GA FH Present. FHR FM BP Weight Alb Glu Ket 05/02/11 5w3d 116/64 102.967 kg (227 lb) + 05/12/11 6w6d 120/69 06/04/11 10w1d 170 104/70 102.059 kg (225 lb) 07/02/11 14w1d Low 150 112/74 102.059 kg (225 lb) 07/22/11 17w0d 110/60 102.967 kg (227 lb) 08/12/11 20w0d 128/58 103.148 kg (227 lb 6.4 oz) + Associated encounter is an inpatient encounter. The last recorded values are displayed OB Comments Date Gest. Comments 07/02/2011 14w1d Doing well, no nausea. Still pretty tired. Works 3 jobs so hard to get enough sleep - planning to go down to one job in the near future. No bleeding. No cramping. FOB is along today (won't usually be able to make it to appointments) they request ultrasound if possible. She finished the antibiotics for Chlamydia. Bedside ultrasound done - shows active ashraf IUP. Cardiac activity seen and estimated at 150 BPM PLAN: -- Follow up in 3-4 weeks -- Get plenty of rest -- Still considering quad screen, but probably not -- Will need [id number] for chlamydia next month. 06/04/2011 10w1d First OB today, see progress note. Lary Aguilera MD .................... 06/04/2011 5:41 PM Chlamydia infection, current 06/07/2011 02/11/2012 Overview: 06/04/2011 + chlamydia at 1st OB visit. Molluscum contagiosum 06/04/20112012 Major depression, single episode 04/13/2010 12/31/2012 Tobacco use disorder 11/17/2009 013 Overview: 2-3 per day. During preg. 2011 chantix 01/2012 Degeneration of thoracic intervertebral disc 0 12/31/2012 Screening for lipoid disorders 12/31/2012 Overview: 11/26/08 Total: 195 Triglyceride: 200 HDL: 43 LDL:112 Encounters Date Type Department Care Team Description 11/25/2023 4:05 PM CDT Office Visit [facility] [address] [place] [id number] Monica Reyes PA Derm Problem (wart between rectum and vagina) 11/25/2023 Travel 11/11/2023 Nurse Triage [facility] [address] [place] [id number] Abiola Masterson DO Results 10/30/2023 Telephone [facility] [address] [place] [id number] Monica Reyes PA Follow Up 10/29/2023 2:00 PM CDT Office Visit [facility] [address] [place] [id number] Monica Reyes PA Derm Problem (skin tag on inner upper right side) 10/29/2023 Travel 10/08/2023 4:00 PM CDT Office Visit [facility] [address] [place] [id number] Abiola Masterson DO Breathing Problem (Breathing concerns for a little over two years since she stopped smoking. ) 10/08/2023 Travel 09/24/2023 Orders Only [facility] Scanner 1 scan: (1-Ord) CHERIE, SHAHEED, 09/24/2023 from Last 3 Months Immunizations Name Administration Dates Next Due Anthrax Vaccine 01/12/2009,10/21/2008 Hepatitis A (Adult) 10/21/2007,04/13/2007 Human Papilloma Virus Vaccine 02/11/2012 ,04/30/2010,08/29/2008,07/15 Inactivated Polio Vaccine 04/13/2007 Influenza A (H1N1), Inactiva rubio (Age >=3 Years) 02/10/2009 Influenza, IIV3 (Age >=3 years) 12/31/2012,12/08,06/04/2011 Meningococcal Vaccine (Menactra) 04/13/2007 Td (Age >=7 Years) 09/11/2018 Tdap 10/22/2011,04/13/2007 Typhoid (injectable) 10/21/2008 Family History Medical History Relation Name Comments Good Health Brother TJ Hyperlipidemia Father Hypertension Father Cancer Maternal Grandfather lung, s kin, pancreatic Alzheimer's disease Maternal Grandmother Hypertension Mother Other Mother Gallbladder Thyroid Disease Mother Grave's Heart attack Paternal Grandfather passed in his 40s. Cancer Paternal Grandmother bladder Hypertension Sister 1 Saira Good Health Sister 2 Erica Good Health Son Cancer-breast No Family History Cancer-colon No Family History Cancer-ovarian No Family History Relation Name Status Comments Brother TJ Alive Father Alive Maternal Grandfather Maternal Grandmother Mother Alive Paternal Grandfather Paternal Grandmother Sister 1 Saira Alive Sister 2 Erica Alive Son Alive Social History Tobacco Use Types Packs/Day Years Used Date Smoking Tobacco: Former Cigarettes 1 17 0 2004 - 05/03/2021 Smokeless Tobacco: Never Tobacco Cessation:Counseling Given: Not Answered Alcohol Use Standard Drinks/Week Comments Not Currently 0 (1 standard drink = 0.6 oz pur e alcohol) rare PHQ-2 Answer Date Recorded PHQ-2 TOTAL SCORE 3 04/18/2023 Social Connections Answer Date Recorded Frequency of Communication with Friends and Fami ly 0 04/18/2023 Financial Resource Strain Answer Date R ecorded Difficulty of Paying Living Expenses 3 04/18/2023 Difficulty of Paying Living Expenses Not on file 04/18/2023 Food Insecurity Answer Date Recorded Worried About Running Out of Food in the Last Ye ar 1 04/18/2023 Transportation Needs Answer Date Record ed Lack of Transportation (Medical) 1 04/18/2023 Housing Stability Answer Date Recorded Unable to Pay for Housing in the Last Year 1 04/18/2023 Comments Yes Sex and Gender Information Value Date Recorded Sex Assigned at Not on file Gender Identity Not on file Sexual Orientation Not on file Obstetrics History Para Term AB IAB SAB Ectopic Multiple Livin g Live Births 2 1 1 0 0 0 0 0 0 1 1 Date Outcome GA Total Labor Labor/2nd/3rd Weight Sex Type Anes PTL Evelina A1 A5 Name Clin 2 Term 40w 1d 3.7 kg (8 lb 2.4 oz) M Vag Epidur al N Livin g 9 9 Chris Philli p Matthew Brice Lo Delivery Location:[facility] Comments:Prolonged sec ond stage Current Last Filed Vital Signs Vital Sign Reading Time Taken Comments Blood Pressure 140/82 11/25/2023 4:07 PM CDT Pulse 89 11/25/2023 4:07 PM CDT Temperature 37.1 ??C (98.7 ??F) 07/31/2023 3:08 PM CD T Respiratory Rate 20 08/12/2023 3:08 PM CDT Oxygen Saturation 100% 11/25/2023 4:07 PM CDT Inhaled Oxygen Concentration - - Weight 138.4 kg (305 lb 1.6 oz) 11/25/2023 4:07 PM CDT Height 165.1 cm (5' 5) 07/16/2023 9:05 PM CDT Body Mass Index 50.77 07/16/2023 9:05 PM CDT Plan of Treatment Upcoming Encounters Date Type Department Care Team (Late st Contact Info) Description 12/17/2023 4:00 PM CDT Appointment [facility] [facility] [place] [address] [place] [address] 04/14/2024 2:30 PM MANAGER METROLOGY Telemed[facility] [address] [place] [address] Valencia Barraza PA [address] [facility] [address] [place], [place] [id number] Health Maintenance Due Date Last Done Comments Influenza for age 9-49 11/30/2023 3, 12/09/2011, 06/04/2011, Additional history exists COVID-19 vaccine series ( season) 2023 Postponed from 11/29/2022 (Patient discretion) Depression screening for age 12+ 04/18/2024 04/18/2023, 10/20/2019, 10/18/2019, Additional history exists BMI (ht and wt on same day) for age 18+ 05/28/2024 05/29/2023, 02/16/2023, 12/27/2019, Additional history exists Pap test for age 21-65 05/28/2026, 05/29/2023, 12/27/2019, Additional history exists Tetanus booster 09/11/2028 09/11/2018, 09/29, 04/13/2007 Tdap Completed 10/22/2011, 04/13/2007 HIV for age 15-65 Completed 12/27/2019, 05/02/2011 Hepatitis C screening for age 18-79 Completed 12/27/2019 Pneumococcal series for age 6-64 Aged Out No longer eligible based on patient's age to complete this topic Procedures Procedure Name Priority Date/Time Associated Diagnosis Comments SCAN-LABORATORY REPORT 09/24/2023 12:00 AM CDT HPV THIN PREP Routine 05/29/2023 3:02 PM MANAGER METROLOGY Screening for malignant neoplasm of cervix ANTI HIV 1/2 Routine 12/27/2019 4:02 PM CDT Screening examination for venereal disease ANTI HCV Routine 12/27/2019 4:02 PM CDT Screening examination for venereal disease from Last 3 Months or Most Recently Relevant to Health Maintenance Results * SCAN-LABORATORY REPORT (09/24/2023 12:00 AM CDT) Scanner OTHER * (ABNORMAL) HPV HIGH RISK (05/29/2023 3:02 PM MANAGER METROLOGY) TYPE 16 Negative Negative 06/03/2023 1:31 PM MANAGER METROLOGY [facility] TYPE 18 Negative Negative 06/03/2023 1:31 PM MANAGER METROLOGY [facility] OTHER HIGH RISK TYPES Positive(A) Negative 06/03/2023 1:31 PM MANAGER METROLOGY [facility] Other (Cervical) Non-Blood / Unknown 05/29/2023 3:02 PM MANAGER METROLOGY 05/30/2023 12:40 PM MANAGER METROLOGY Narrative [facility] - 06/03/2023 1:31 PM MANAGER METROLOGY Specimen is positive for the DNA of any one of, or combination of, the following high risk HPV types: 31, 33, 35, 39, 45, 51, 52, 56, 58, 59, 66, 68. HPV types 16 and 18 DNA were undetectable or below the pre-set threshold. ? Methodology: Cirilo Johanna 4800 HPV Test Abiola Masterson DO MICROBIOLOGY [facility] [address] [place] [address], * ANTI HCV (12/27/2019 4:02 PM CDT) HEPATITIS C ANTIBODY Non-React vidal Non-React vidal 12/28/2019 3:55 PM CDT [facility] Comment:Antibodies to HCV no t detected; does not exclude the possibility of exposure to HCV. Blood BLOOD SPECIMEN / Unknown Butterfly / Unknown 12/27/2019 4:02 PM CDT 12/27/2019 4:06 PM CDT Yanet Oliva MD SEND OUTS Performing Organization Address [facility]/ZIP Co de Phone Number [facility] [address] [place] [address], * ANTI HIV 1/2 (12/27/2019 4:02 PM CDT) Pathologist [facility] HIV-1/HIV-2 ANTIBODY Non-Reacti ve Non-Reacti ve 12/28/2019 3:52 PM CDT [facility] Comment:HIV-1 p24 and HIV-1/ HIV-2 Ab not detected. Blood BLOOD SPECIMEN / Unknown Butterfly / Unknown 12/27/2019 4:02 PM CDT 12/27/2019 4:06 PM CDT Yanet Oliva MD SEND OUTS [facility] [address] [place] [address], from Last 3 Months or Most Recently Relevant to Health Maintenance Guerline Jackson Personal/Family Self 1990 [id number] [place] [address] Guerline Jackson Workers Comp Self 1990 [address] [place] [address] Guerline Jackson Workers Comp Self 1990 [address] [facility] [place] [address] Guerline Jackson Workers Comp Self 1990 [address] [facility] [place] [address] Guerline Jackson Workers Comp Self 1990 [id number] [place] [address] [facility] [place] ESCREEN Occ Health/[place] 03/31/[address] [place] [id number] ATTN A/P [address] [address] [place] [address] [employer] Occ Health/Es Employer 03/31/2000 ATTN A/P [address] [place] [address] Guerline Jackson Personal/Family Self [id number] [place] [address] Advance Directives * Full Code (Latest Code Status on File) Date Activated Date Inactivated Comments 07/19/2015 5:51 AM 07/19/2015 2:10 PM * Full Code Date Activated Date Inactivated Comments 01/19/2014 11:04 AM 01/19/2014 3:11 PM * Full Code Date Activated Date Inactivated Comments 12/30/2011 11:57 PM 12/31/2011 7:27 PM * Full Code Date Activated Date Inactivated Comments 12/30/2011 10:13 PM 12/30/2011 11:57 PM * Full Code Date Activated Date Inactivated Comments 12/28/2011 8:21 PM 12/28/2011 11:54 PM Care Teams Door And Arrival Attendant Relationship Specialty Start Date End Date Abiola Masterson DO [address] [place] [address] PCP - General Family Practice 04/14/23
--- OUTSIDE RECORDS SUMMARY | 2023-11-27 07:52 | XMS_ITS | Encounter Summary ---
Author Organization [place] Address [address] [place] [address] Care Team Providers Care Transformer Repairer Name Role Phone Unavailable Primary Care Provider Unavailabl e Reason for Referral * Consultation (Routine) - Pending Review Specialty Diagnoses / Procedures Referred By Contac t Referred To Contact bottler helper Diagnoses Supervision of elderly multigravida, first trimester Lonny Bui MD [facility] [place] [address] Referral ID Status Reason Start Date Expiration Date V isits Requested Visits Authorized [id number] Pending Review 09/30/2023 09/29/2024 1 1 Question Answer Is the patient being referred to Crinkling Machine Operator by a [facility] Administration ([place] provider? Yes Reason for Referral: Scope of Care: Physician/M.D. Have orders been placed in [facility] (imaging, labs, etc.) that need to be completed prior to the patient's consult? No Scheduling Instructions: [employer] will call you to coordinate your care as prescribed by your provider. If you don't hear from a containers sales representative within 2 business days, please call . Comments Referral Transcribed by external fax Provider: LONNY BUI affiliated with [facility] clinic. VA: Yes If yes was is the VA Authorization Number: [id number] Phone number: [phone] Fax number: [phone] [employer] will call you to coordinate your care as prescribed by your provider. If you don't hear from a containers sales representative within 2 business days, please call [...] Type Priority Associated Diagnoses Orde r Schedule Crinkling Machine Operator Airport Ramp Supervisor Referral Referral Routine Supervision of elderly multigravida, first trimester Expected: 09/30/2023 (Approximate), Expires: 09/29/2024 documented as of this encounter Visit Diagnoses Diagnosis Supervision of elderly multigravida, first trimester- Primary documented in this encounter
--- OUTSIDE RECORDS SUMMARY | 2023-11-27 07:52 | XMS_ITS | Referral Summary ---
Author Organization [place] Address [address] [place] [address] Care Team Providers Care Senior Designer/Art Director Name Role Phone No Ref-Primary, Physician Primary Care Provider Encounters Date Type Department Care Team Description 10/21/2023 Travel 10/21/2023 2:45 PM CDT Office Visit [facility] [address] [place] [address] Nicolette Alvarez Phillip Neil, MD Multigravida of advanced maternal age in second trimester (Primary Dx); Obesity affecting in second trimester, unspecified obesity type; Hypertension affecting in second trimester 10/21/2023 2:06 PM CDT - 10/21/2023 11:59 PM CDT Hospital Encounter [facility] Medicine [facility] [address] [place] [address] Nicolette Alvarez Phillip Neil, MD related condition, antepartum Discharge Disposition: Home or Self Care 10/14/2023 PRE VISIT [facility] [address] [place] [address] Stacie Archuleta RN Ultrasound (L2-AMA, BMI, Essential (primary) HTN) 09/30/2023 Transcribe Orders GENERIC EXTERNAL DATA DEPARTMENT Provider, Generic External Data Supervision of elderly multigravida, first trimester (Primary Dx) 09/30/2023 Transcribe Orders GENERIC EXTERNAL DATA DEPARTMENT Provider, Generic External Data Supervision of elderly multigravida, first trimester (Primary Dx) 09/30/2023 Transcribe Orders [facility] [place] [facility] [place] [address] [facility] [address] [place] [phone] Lesterjune related condition, antepartum (Primary Dx) 09/29/2023 Medical Correspondence [facility] [address] [place] [address] Scan, Non-Provider 09/24/2023 Medical Correspondence [facility] [address] [facility] [address] Scan, Non-Provider from Last 3 Months Social History Tobacco Use Types Packs/Day Years [...] Orientation Not on file Plan of Treatment Not on file Procedures Procedure Name Priority Date/Time Associated Diagnosis Comments [facility] COMPREHENSIVE SINGLE Routine 10/21/2023 3:30 PM CDT related condition, antepartum from Last 3 Months Results * [facility] Comprehensive Single (10/21/2023 3:30 PM CDT) Anatomical Region Laterality Modality Ultrasound 10/21/2023 2:11 PM CDT Impressions 10/21/2023 3:26 PM CDT IMPRESSION ----- 1. Canales at 19w 3d gestational age. 2. No anomalies commonly detected by ultrasound were identified in the detailed anatomic survey within the limits of ultrasound. 3. Growth parameters and estimated weight were consistent with gestational age predicted by assigned GEOVANY. 4. The amniotic fluid volume appeared normal. 5. On transvaginal imaging the cervix appeared long and closed. 6. Low lying placenta. Narrative 10/21/2023 3:26 PM CDT ?Comprehensive ----- Pat. Name: ANIVAL JACKSON ? Study Date: ??10/21/2023 2:11pm Pat. NO: ??[id number] ?Referring ??MD: JUNE ANTONIO Site: ? Polystyrene Molding Machine Tender: Josep Rodriguez RDMS : ??1990 ?Age: ?? 33 ----- INDICATION ----- Advanced Maternal Age BMI 50 METHOD ----- Transabdominal and transvaginal ultrasound approaches were used. (Transvaginal ultrasound examination was required to adequately complete the exam.). View: Sufficient ----- Canales . Number of fetuses: 1 DATING ----- ? Date ?Details ?Gest. age ?GEOVANY LMP ? Cycle: LMP date not known Previous U/S ?08/13/2023 ?GA, GA 9 w + 4 d ? 19 w + 3 d ? 03/13/2024 U/S ? 10/21/2023 ? based upon AC, BPD, Femur, HC ?19 w + 2 d ? 03/14/2024 Assigned dating ?based on ultrasound (GA), selected on 10/21/2023 ?19 w + 3 d ? 03/13/2024 GENERAL EVALUATION ----- Cardiac activity present. FHR 145 bpm. movements: present. Presentation: breech Placenta: Posterior, low-lying Umbilical cord: 3 vessel cord Amniotic fluid: Amount of AF: normal. MVP 4.5 cm BIOMETRY ----- BPD ? 43.6 ?mm ? 19w 1d ?Marce PEOPLES ? 58.2 ?mm ? 19w 0d ?Nicolaides HC ? 163.8 ?mm ? 19w 1d ? Hadlock Cerebellum tr ?19.5 ?mm ? 18w 5d ? Nicolaides Nuchal fold ?4.4 ? mm AC ? 147.1 ?mm ? 20w 0d ?64% ?Hadlock Femur ?28.7 ?mm ? 18w 6d ? Hadlock Humerus ? 30.3 ? mm ?20w 0d ?Alyse Weight Calculation: EFW ?291 ? g ? 43% ?Hadlock EFW (lb,oz) ?0 lb 10 ? oz EFW by ? Hadlock ([id number]) Head / Face / Neck Biometry: Ela Teacher ?5.8 ? mm CM ? 3.2 ? mm Nasal bone ? 5.5 ?mm ANATOMY ----- The following structures appear normal: Head / Neck ? Cranium. Head size. Head shape. Lateral ventricles. Choroid plexus. Midline falx. Cavum septi pellucidi. Cerebellum. Cisterna magna. ? Parenchyma. Thalami. Vermis. ? Neck. Nuchal fold. Face ? Lips. Profile. Nose. Maxilla. Mandible. Orbits. Lens. Heart / Thorax ?4-chamber view. RVOT view. LVOT view. 3-vessel view. 6-wqpvet-uomdjom view. Situs. Aortic arch view. Bicaval view. Ductal arch view. Superior ? vena cava. Inferior vena cava. Cardiac position. Cardiac size. Cardiac rhythm. ? Right lung. Left lung. Diaphragm. Abdomen ? Abdom. wall. Cord insertion. Stomach. Kidneys. Bladder. Liver. Bowel. Genitals. Spine ?Cervical spine. Thoracic spine. Lumbar spine. Sacral spine. Extremities / Skeleton ?Arms. Right arm. Right hand. Left arm. Left hand. Legs. Right leg. Right foot. Left leg. Left foot. MATERNAL STRUCTURES ----- Cervix ?Visualized ? Appearance: Appears Closed ? Approach - Transvaginal: Cervical length 46.5 mm Right Ovary ?Visualized Left Ovary ?Visualized RECOMMENDATION ----- We discussed the findings on today's ultrasound with the patient. We recommend that you assess growth every 4 weeks beginning at 28 weeks and begin weekly testing at 32 weeks. Return to primary provider for continued care. Thank-you for the opportunity to participate in the care of this patient. If you have questions regarding today's evaluation or if we can be of further service, please contact the [facility]. anomalies may be present but not detected Procedure Note Derek Bautista MD - 10/21/2023 Comprehensive ----- Pat. Name: ANIVAL JACKSON Study Date: 10/21/2023 2:11pm Pat. NO: [id number] Referring MD: NICOLETTE ALVAREZ Site: Polystyrene Molding Machine Tender: Josep Rodriguez RDMS : 1990 Age: 33 ----- INDICATION ----- Advanced Maternal Age BMI 50 METHOD ----- Transabdominal and transvaginal ultrasound approaches were used.(Transvaginal ultrasound examination was required to adequately completethe exam.). View: Sufficient ----- Canales . Number of fetuses: 1 DATING ----- DateDetailsGest. age GEOVANY LMPCycle: LMP date not known Previous U/S 08/13/2023 GA, GA9 w + 4 d19 w + 3 d 03/13/2024 U/S 10/21/2023ased upon AC, BPD, Femur, HC19 w + 2 d 03/14/2024 Assigned dating based on ultrasound (GA), selected on10/21/2023 19w + 3 d 03/13/2024 GENERAL EVALUATION ----- Cardiac activity present. FHR 145 bpm. movements: present.Presentation: breech Placenta: Posterior, low-lying Umbilical cord: 3 vessel cord Amniotic fluid: Amount of AF: normal. MVP 4.5 cm BIOMETRY ----- BPD 43.6mm 19w 1dHadlock OFD 58.2mm 19w 0dNicolaides HC 163.8mm 19w 1dHadlock Cerebellum tr 19.5mm 18w 5dNicolaides Nuchal fold 4.4mm AC 147.1mm 20w 0d 64%Hadlock Femur 28.7mm 18w 6dHadlock Humerus 30.3mm 20w 0dJeanty Weight Calculation: EFW 291g 43%Hadlock EFW (lb,oz) 0 lb 10oz EFW by Johnathonlock([id number]) Head / Face / Neck Biometry: Ela Teacher 5.8mm CM 3.2mm Nasal bone 5.5mm ANATOMY ----- The following structures appear normal: Head / Neck Cranium. Head size. Head shape.Lateral ventricles. Choroid plexus. Midline falx. Cavum septi pellucidi.Cerebellum. Cisterna magna. Parenchyma. Thalami. Vermis. Neck. Nuchal fold. Face Lips. Profile. Nose. Maxilla.Mandible. Orbits. Lens. Heart / Thorax 4-chamber view. RVOT view. LVOT view.3-vessel view. 5-ynzfih-jxadfhf view. Situs. Aortic arch view. Bicavalview. Ductal arch view. Superior vena cava. Inferior vena cava.Cardiac position. Cardiac size. Cardiac rhythm. Right lung. Left lung.Diaphragm. Abdomen Abdom. wall. Cord insertion. Stomach.Kidneys. Bladder. Liver. Bowel. Genitals. Spine Cervical spine. Thoracic spine.Lumbar spine. Sacral spine. Extremities / Skeleton Arms. Right arm. Right hand. Left arm.Left hand. Legs. Right leg. Right foot. Left leg. Left foot. MATERNAL STRUCTURES ----- Cervix Visualized Appearance: Appears Closed Approach - Transvaginal:Cervical length 46.5 mm Right Ovary Visualized Left Ovary Visualized RECOMMENDATION ----- We discussed the findings on today's ultrasound with the patient. We recommend that you assess growth every 4 weeks beginning at 28weeks and begin weekly testing at 32 weeks. Return to primary provider for continued care. Thank-you for the opportunity to participate in the care of this patient.If you have questions regarding today's evaluation or if we can be offurther service, please contact the [facility]. anomalies may be present but not detected IMPRESSION ----- 1. Canales at 19w 3d gestational age. 2. No anomalies commonly detected by ultrasound were identified inthe detailed anatomic survey within the limits of prenatalultrasound. 3. Growth parameters and estimated weight were consistent withgestational age predicted by assigned GEOVANY. 4. The amniotic fluid volume appeared normal. 5. On transvaginal imaging the cervix appeared long and closed. 6. Low lying placenta. June [facility] US ORDERABLE S from Last 3 Months Care Teams Senior Designer/Art Director Relationship Specialty Start Date End Date No Ref-Primary, Physician PCP - General 10/20/23
--- OUTSIDE RECORDS SUMMARY | 2023-11-27 07:52 | XMS_ITS | Clinical Summary ---
Author Organization [place] Address [address] [place] [address] Care Team Providers Care Donor Recruitment Manager Name Role Phone No Ref-Primary, Physician Primary Care Provider Encounters Date Type Department Care Team Description 10/21/2023 2:45 PM CDT Office Visit [facility] [place] [address] [place] [address] Nicolette Alvarez Phillip Neil, MD Multigravida of advanced maternal age in second trimester (Primary Dx); Obesity affecting in second trimester, unspecified obesity type; Hypertension affecting in second trimester 10/21/2023 2:06 PM CDT - 10/21/2023 11:59 PM CDT Hospital Encounter [facility] [address] [place] [address] Nicolette Alvarez Phillip Neil, MD related condition, antepartum Discharge Disposition: Home or Self Care 10/21/2023 Travel 10/14/2023 PRE VISIT [facility] [address] [facility] [address] [place] [address] Stacie Archuleta RN Ultrasound (L2-AMA, BMI, Essential (primary) HTN) 09/30/2023 Transcribe Orders GENERIC EXTERNAL DATA DEPARTMENT Provider, Generic External Data Supervision of elderly multigravida, first trimester (Primary Dx) 09/30/2023 Transcribe Orders GENERIC EXTERNAL DATA DEPARTMENT Provider, Generic External Data Supervision of elderly multigravida, first trimester (Primary Dx) 09/30/2023 Transcribe Orders [facility] [place] [address] [place] [phone] AntonioJune related condition, antepartum (Primary Dx) 09/29/[address] [facility] [address] [place] [address] Scan, Non-Provider 09/24/[address] [facility] Info [facility] [address] [place] [address] Scan, Non-Provider from Last 3 Months [...] Health Maintenance Due Date Last Done Comments ADVANCE CARE PLANNING 1990 ANNUAL REVIEW OF HM ORDERS 1990 GLUCOSE 1990 HIV SCREENING 2003 HEPATITIS C SCREENING 2006 HEPATITIS B IMMUNIZATION (1 of 3 - 19+ 3-dose series) 2007 COVID-19 Vaccine ( - season) 2022 PHQ-2 (once per calendar year) 2023 MATERNAL SCREENING DISCUSSION 08/16/2023 OBGCT (OB) 11/22/2023 INFLUENZA VACCINE (#1) 2023 3, 12/09/2011, 06/04/2011, Additional history exists RSV VACCINE ( & 60+) (1 - Risk 1-dose series) 01/17/2024 YEARLY PREVENTIVE VISIT 05/28/2024 05/29/2023, 12/26 PAP 05/28/2026 05/29/2023 DTAP/TDAP/TD IMMUNIZATION (4 - Td or Tdap) 09/11/2028 09/11/2018, 10/22/2011, 04/13/2007 MENINGITIS IMMUNIZATION Completed 04/13/2007 HPV IMMUNIZATION Completed 02/11/2012, , 08/29/2008, Additional history exists Pneumococcal Vaccine: Pediatrics (0 to 5 Years) and At-Risk Patients (6 to 64 Years) Aged Out No longer eligible based on patient's age to complete this topic RSV MONOCLONAL ANTIBODY Aged Out No l onger eligible based on patient's age to complete this topic Procedures Procedure Name Priority Date/Time Associated Diagnosis Comments [facility] COMPREHENSIVE SINGLE Routine 10/21/2023 3:30 PM CDT related condition, antepartum from Last 3 Months Results * [facility] US Comprehensive Single (10/21/2023 3:30 PM CDT) Anatomical [...] 3:26 PM CDT ?Comprehensive ----- Pat. Name: GUERLINE JACKSON ? Study Date: ??10/21/2023 2:11pm Pat. NO: ??[id number] ?Referring ??MD: NICOLETTE ANTONIO Site: ? [facility] Director: Josep Rodriguez [facility] : ??1990 ?Age: ?? 33 ----- INDICATION [...] BPD ? 43.6 ?mm ? 19w 1d ?Hadlock OFD ? 58.2 ?mm ? 19w 0d ?Nicolaides [...] lb 10 ? oz EFW by ? [facility] ([id number]) Head / Face / Neck Biometry: Rn Pediatric Icu ?5.8 ? mm CM ? 3.2 ? [...] view. RVOT view. LVOT view. 3-vessel view. 9-jzsvyr-bljbfwx view. Situs. Aortic arch view. Bicaval view. [...] MD - 10/21/2023 Comprehensive ----- Pat. Name: GUERLINE JACKSON Study Date: 10/21/2023 2:11pm Pat. NO: [id number] Referring MD: NICOLETTE ALVAREZ Site: [facility] Director: Josep Rodriguez RDMS : 1990 Age: 33 [...] d19 w + 3 d 03/13/2024 U/S 4based upon AC, BPD, Femur, HC19 w + [...] EFW (lb,oz) 0 lb 10oz EFW by Hadlock([id number]) Head / Face / Neck Biometry: Rn Pediatric Icu 5.8mm CM 3.2mm Nasal bone 5.5mm ANATOMY ----- The following structures appear normal: Head / Neck Cranium. Head size. Head shape.Lateral ventricles. Choroid plexus. Midline falx. Cavum septi pellucidi.Cerebellum. Cisterna magna. Parenchyma. Thalami. Vermis. Neck. Nuchal fold. Face Lips. Profile. Nose. Maxilla.Mandible. Orbits. Lens. Heart / Thorax 4-chamber view. RVOT view. LVOT view.3-vessel view. 7-emsbip-hnmkyzp view. Situs. Aortic arch view. Bicavalview. Ductal [...] and closed. 6. Low lying placenta. June Antonio [facility] US ORDERABLE S from Last 3 Months Care Teams Donor Recruitment Manager Relationship Specialty Start Date End Date No Ref-Primary, Physician PCP - General 10/20/23
--- OUTSIDE RECORDS SUMMARY | 2023-11-27 07:52 | XMS_ITS | Encounter Summary ---
Author Organization [place] Address [address] [place] [address] Care Team Providers Care Family Advocate Name Role Phone No Ref-Primary, Physician Primary Care Provider Reason for Referral * Diagnostic Imaging Ultrasound (Routine) - Pending Review Specialty Diagnoses / Procedures Referred By Jaic lagos Referred To Contact Radiology. Diagnoses related condition, antepartum Procedures [facility] US [facility], June [facility] [address] [place] [address] Referral ID Status Reason Start Date Expiration Date V isits Requested Visits Authorized [id number] Pending Review 09/30/2023 09/29/2024 1 1 Reason for Visit * Auth/Cert (Routine) Specialty Diagnoses / Procedures Referred By Jaci lagos Referred To Contact Radiology. [facility] Ultrasound [address] [place] [address] Referral ID Status Reason Start Date Expiration Date Visits Re quested Visits Authorized [id number] 1 1 Encounter Details Date Type Department Care Team (Latest Contact Info) Description 10/21/2023 2:06 PM CDT - 10/21/2023 11:59 PM CDT Hospital Encounter [facility] [place] [address] [place] [address] Andrerogelio Nicolette [facility] [address] [place] [address] Derek Bautista MD [address] [place] [address] [address] [place] [address] related condition, antepartum Discharge Disposition: Home or Self Care Social History Tobacco Use Types Packs/Day Years [...] on file documented as of this encounter Procedures Procedure Name Priority Date/Time Associated Diagnosis Comments [facility] US COMPREHENSIVE SINGLE Routine 10/21/2023 3:30 PM CDT related condition, antepartum documented in this encounter Results * [facility] US Comprehensive Single (10/21/2023 3:30 PM [...] ? Study Date: ??10/21/2023 2:11pm Pat. NO: ??[id number] ?Referring ??MD: [facility] Site: ? Spine Specialist: Josep Rodriguez RDMS : ??1990 ?Age: ?? [...] 10 ? oz EFW by ? Hadlock ([id number]) Head / Face / Neck Biometry: Fuse Assembler ?5.8 ? mm CM ? 3.2 ? [...] view. RVOT view. LVOT view. 3-vessel view. 6-iidzrz-lbqiujt view. Situs. Aortic arch view. Bicaval view. [...] JACKSON Study Date: 10/21/2023 2:11pm Pat. NO: [id number] Referring MD: NICOLETTE ALVAREZ Site: Spine Specialist: Josep Rodriguez RDMS : 1990 Age: 33 [...] EFW (lb,oz) 0 lb 10oz EFW by Hadlock([id number]) Head / Face / Neck Biometry: Fuse Assembler 5.8mm CM 3.2mm Nasal bone 5.5mm ANATOMY ----- The following structures appear normal: Head / Neck Cranium. Head size. Head shape.Lateral ventricles. Choroid plexus. Midline falx. Cavum septi pellucidi.Cerebellum. Cisterna magna. Parenchyma. Thalami. Vermis. Neck. Nuchal fold. Face Lips. Profile. Nose. Maxilla.Mandible. Orbits. Lens. Heart / Thorax 4-chamber view. RVOT view. LVOT view.3-vessel view. 3-jjgjpw-oinokdv view. Situs. Aortic arch view. Bicavalview. Ductal [...] and closed. 6. Low lying placenta. June Zeinab BURTON [facility] US ORDERABLE S documented in this encounter Visit Diagnoses Diagnosis related condition, antepartum documented in this encounter Care Teams Family Advocate Relationship Specialty Start Date End Date No Ref-Primary, Physician PCP - General 10/20/23 documented as of this encounter
--- OUTSIDE RECORDS SUMMARY | 2023-11-27 07:52 | XMS_ITS | Encounter Summary ---
Author Organization [place] Address [address] [place] [address] Care Team Providers Care Student Support Services Director Name Role Phone Unavailable Primary Care Provider Unavailabl e Reason for Referral * Diagnostic Imaging Ultrasound (Routine) - Pending Review Specialty Diagnoses / Procedures Referred By Jaci lagos Referred To Contact Radiology. Diagnoses related condition, antepartum Procedures [facility] US Comprehensive Single [address] [place] [address] Referral ID Status Reason Start Date Expiration Date V isits Requested Visits Authorized [id number] Pending Review 09/30/2023 09/29/2024 1 1 * Consultation (Routine: Next available opening) - Pending Review Specialty Diagnoses / Procedures Referred By Jaci lagos Referred To Contact Diagnoses related condition, antepartum [facility], [address] [place] [address] [facility] Maternal [facility] [address] [place] [address] Referral ID Status Reason Start Date Expiration Date V isits Requested Visits Authorized [id number] Pending Review 09/30/2023 09/29/2024 1 1 Question Answer Preferred Location: [facility] [place] 03/13/2024 Ultrasound Comprehensive US (>than 18 weeks GA) US PROC NONE MFM Issue OTHER (enter details in Comments) - AMA, BMI, essential (primary) hypertension. MFM MD Consultation (unrelated to Ultrasound findings): No Inflammatory Bowel Disease Clinic: Joint MFM and GI Consultation: No Chronic Kidney Disease: Joint MFM and Nephrology Consultation No Genetic Counseling Consultation: No fax [facility]; Zeinab, June; [phone] Comments There is no height or weight on file to calculate BMI. >> Patient may proceed with recommendations for further testing as directed by the Maternal Medicine Specialist >> >> If requesting Echo: MFM will determine appropriate location for exam due to indication. Please be aware that coverage of these services is subject to the terms and limitations of your health insurance plan. Call member services at your health plan with any benefit or coverage questions. Encounter Details Date Type Department Care Team (Latest Contact Info) Description 09/30/2023 Transcribe Orders [facility] M[facility] [place] [address] [place] [address] ZeinabJune [address] [place] [address] related condition, antepartum (Primary Dx) Social History Tobacco Use Types Packs/Day Years Used Date Smoking Tobacco: Never Assessed Sex and Gender Information Value Date Recorded Sex Assigned at Not on file Gender Identity Not on file Sexual Orientation Not on file documented as of this encounter Plan of Treatment Scheduled Referrals Name Type Priority Associated Diagnoses Orde r Schedule Mat Med Ctr Referral - Referral Routine: Next available opening related condition, antepartum Expected: 09/30/2023 (Approximate), Expires: 03/28/2024 documented as of this encounter Results * [facility] US Comprehensive Single (10/21/2023 3:30 PM [...] PM CDT ?Comprehensive ----- Pat. Name: GUERLINE BARRAGAN ? Study Date: ??10/21/2023 2:11pm Pat. NO: ??[id number] ?Referring ??MD: NICOLETTE ALVAREZ Site: ? Historical Site Guide: Josep Rodriguez RDMS : ??1990 ?Age: ?? [...] 10 ? oz EFW by ? Hadlock ([id number]) Head / Face / Neck Biometry: Apprenticeship Representative ?5.8 ? mm CM ? 3.2 ? [...] view. RVOT view. LVOT view. 3-vessel view. 8-fgtmvx-wbrmbzk view. Situs. Aortic arch view. Bicaval view. [...] - 10/21/2023 Comprehensive ----- Pat. Name: GUERLINE BARRAGAN Study Date: 10/21/2023 2:11pm Pat. NO: [id number] Referring MD: NICOLETTE ALVAREZ Site: Historical Site Guide: Josep Rodriguez RDMS : 1990 Age: 33 [...] EFW (lb,oz) 0 lb 10oz EFW by Marce([id number]) Head / Face / Neck Biometry: Apprenticeship Representative 5.8mm CM 3.2mm Nasal bone 5.5mm ANATOMY ----- The following structures appear normal: Head / Neck Cranium. Head size. Head shape.Lateral ventricles. Choroid plexus. Midline falx. Cavum septi pellucidi.Cerebellum. Cisterna magna. Parenchyma. Thalami. Vermis. Neck. Nuchal fold. Face Lips. Profile. Nose. Maxilla.Mandible. Orbits. Lens. Heart / Thorax 4-chamber view. RVOT view. LVOT view.3-vessel view. 1-ekptyn-aojiucp view. Situs. Aortic arch view. Bicavalview. Ductal [...] closed. 6. Low lying placenta. June Zeinab [facility] US ORDERABLE S documented in this encounter Visit Diagnoses Diagnosis related condition, antepartum- Primary related condition, antepartum documented in this encounter
--- OUTSIDE RECORDS SUMMARY | 2023-11-27 07:52 | XMS_ITS | Clinical Summary ---
Author Organization [facility] Address [address] [place] [address] Care Team Providers Care Medical Laboratory Manager Name Role Phone Unavailable Primary Care Provider Unavailabl e Source Comments Patient records contain information from all sites at [facility]. For routine questions regarding patient records, call [phone] during business hours, M-F 8:00 AM - 5:00 PM Central Time. Record requests for emergency care only can be directed to [phone] at any time.[facility] Allergies No known active allergies Medications Medication [...] [place]ll[place]. His first baby! She is moving [facility] during the (likely summertime) Problem Noted Date Diagnosed Date Complication Morbid Obesity Body Mass Index Greater Than 40 08/13/2023 Body Mass Index 50.0 To 59.9 Adult 08/13/2023 Elderly Multigravida Greater Than 35 Y ear Old 08/13/2023 Overview (08/13/2023): Desires NIP Panorama, scheduled 08/20/23 Preexisting Hypertension 08/13/2023 Overview (08/13/2023): Baseline preeclampsia labs collected at [facility] OB Will begin 81 mg ASA at 12 weeks Depression Anxiety 08/13/2023 High Risk 08/13/2023 Overview (08/13/2023): BMI >50 Chronic HTN Elderly multigravida Anxiety/depression We discussed advanced level US, MFM consult. She is very likely moving to [facility], and will be transferring her care closer to there once moved. No consults placed yet. Estimated Date of Delivery Comme nts Yes 03/13/2024 Based on Ultraso und Encounters Date Type Department Care Team Description 09/02/2023 5:30 PM CDT - 09/02/2023 11:59 PM CDT Hospital Encounter Department of Laboratory Medicine in [address] [phone] Loreta Ramirez APRN, C.N.P. Encounter For Screening For Chromosomal Anomalies (HCC) Discharge Disposition: Home or Self Care 09/02/2023 Orders Only Department of Obstetrics and Gynecology in [address] [phone] Loreta Ramirez, TREVOR, C.N.P. Encounter For Screening For Chromosomal Anomalies (HCC) (Primary Dx) 09/02/2023 Clinical Communication Department of Obstetrics and Gynecology in [address] [phone] Loreta Ramirez, TREVOR, C.N.P. Results (Panorama Screen ) from Last 3 Months Immunizations Name Administration Dates Next Due 4vHPV (discontinued) 02/11/2012,04/30/19 11,08/29/2008, 009 Anthrax 01/12/2009,10/21/2008 H1N1 Inj 02/10/2009 HepA Adult 10/21/2007,04/13/2007 IPV 04/13/2007 Influenza Laiv (Nasal) (Discontinued) 02/03/2008,04/13/2007 Influenza, Seasonal, Injectable 12/31/2012,12/08,06/04/2011 MCV4 (Menactra)(Discontinued) 04/13/2007 Td (Adult), adsorbed 09/11/2018 Tdap 10/22/2011,04/13/2007 TyVi (inj) 10/21/2008 Family History Medical History Relation Name Comments Hyperlipidemia Father Hypertension Father Cancer Maternal Grandfather Alzheimer's disease Maternal Grandmother Graves' disease Mother Hypertension Mother Heart attack Paternal Grandfather Bladder cancer Paternal Grandmother Hypertension Sister 1 No Known Problems Son Relation Name Status Comments Brother Alive Father Alive Maternal Grandfather Maternal Grandmother Mother Alive Paternal Grandfather Paternal Grandmother Sister 1 Alive Sister 2 Alive Son Alive Social History Tobacco Use Types Packs/Day Years Used Date Smoking Tobacco: Former Cigarettes 2 - 05/03/2021 Smokeless Tobacco: Never Tobacco Cessation:Counseling Given: Not Answered Comments:Started at age 15, quit in 2021 Alcohol Use Standard Drinks/Week Comments Not Currently 0 (1 standard drink = 0.6 oz pur e alcohol) [facility] Utilities Answer Date Recorded In the past 12 months has e [employer], gas, oil, or water [employer] threatened to shut off services in your [...] 08/13/2023 3:02 PM CDT Plan of Treatment Health Maintenance Due Date Last Done Comments Cervical Cancer Screening 1990 Hepatitis B Vaccines (1 of 3 - 19+ 3-dose series) 2007 COVID-19 Vaccine (1 - 2022-24 season) 2022 Influenza Vaccine (#1) 2023 3, 12/09/2011, 06/04/2011, Additional history exists RSV vaccine - (32-36 weeks) or 60+ years (1 - Risk 1-dose series) 01/17/2024 Office Visit for Blood Pressure Check / Re-check 08/12/2024 08/13/2023 Lipid (Cholesterol) Screening 12/26/2024 12/27/2019 DTaP,Tdap,and Td Vaccines (4 - Td or Tdap) 09/11/2028 09/11/2018, 10/22/2011, 04/13/2007 Hepatitis A Vaccines Completed 10/21/2007, 04/13/19 08 HPV Vaccines Completed 02/11/2012, 01/29, 04/30/2010, Additional history exists Depression Screening (Annual PHQ-2) Completed 08/13/2023 HIV Screening Completed 08/13/2023 Hepatitis C Screening Completed 08/13/2023 Pneumococcal vaccine (0-64 years) Aged Out No longer eligible based on patient's age to complete this topic Goals Goal Patient Goal Type Associated Problems Recent Progress Patient-Stated? Author [facility] Care Plan for Healthy Care Plan [facility] Care Plan for Healthy No Support, [facility] - Nicotine Dependency Chronic Care Plan [facility] Care Plan for Healthy No Support, [employer] [...] Sent Out Lab (09/02/2023 5:47 PM CDT) Pathologist [facility] Panorama Screen SEE COMMENT 09/16/2023 10:40 AM CDT [facility] Comment: For final report, select Lab-Send Out Lab Results hyperlink below. Blood (Blood, Venous) 09/02/2023 5:47 PM CDT 09/04/2023 7:02 AM CDT Narrative [employer] - 09/16/2023 10:40 AM CDT Specimen Information: Specimen ID: [id number] Specimen Type: Blood Specimen Collection Start Date: 09/02/2023 ??5:47 PM Specimen Received Date: 09/04/2023 ??7:02 AM Specimen ID: [id number] Specimen Type: Blood Specimen Collection Start Date: 09/02/2023 ??5:47 PM Specimen Received Date: 09/04/2023 ??7:02 AM Lety Hughes APRNN.P. LAB GENETIC TE STING [employer] [address] [facility] [address] [place] [address], [facility] [employer] [address] [facility] [address] [place] [address] * Hepatitis C Virus Antibody Screen (08/13/2023 4:52 PM CDT) Pathologist [facility] HCV Ab Scrn , S Negative Negative 08/14/2023 10:25 AM CDT [facility] Comment: Consumption of high-dose biotin supplement within 12 hours of blood collection for this test can cause false-negative results. Blood (Blood, Venous) 08/13/2023 4:52 PM CDT 08/14/2023 7:24 AM CDT Sean Hughes APRN.N.P. LAB MICROBIOLO GY - BLOOD ORDERABLES [facility] [address] [place] [address] [facility] [address] [place] [address] * HIV-1/-2 Ag and Ab Scrn, Plasma [...] 4:52 PM CDT 08/13/2023 8:38 PM CDT Lety Hughes APRNNJooPJoo LAB MICROBIOLO GY - BLOOD ORDERABLES [facility] [address] [place] [address], [place] [facility] [facility] [place] [facility] [address] [facility] [place] [address] from Last 3 Months or Most Recently Relevant to Health Maintenance Additional Health Concerns Active Problems Noted Date Diagnosed Date [facility] Care Plan for Healthy 08/30
--- OUTSIDE RECORDS SUMMARY | 2023-11-27 07:52 | XMS_ITS | Encounter Summary ---
Author Organization [facility] Address [address] [place] [address] Care Team Providers Care Aircraft Launch And Recovery Technician Name Role Phone Unavailable Primary Care Provider Unavailabl e Encounter Details Date Type Department Care Team (Latest Contact Info) Description 09/02/2023 5:30 PM CDT - 09/02/2023 11:59 PM CDT Hospital Encounter Department of Laboratory Medicine in [place], [place] [address] [place] [address] Loreta Ramirez, TREVOR, C.N.P. [address] [place] [phone] Encounter For Screening For Chromosomal Anomalies (HCC) Discharge Disposition: Home or Self Care Social History Tobacco Use Types Packs/Day Years Used Date Smoking Tobacco: Former Cigarettes 2 006 - 05/03/2021 Smokeless Tobacco: Never Comments:Started at age 15, quit in 2021 Alcohol Use Standard Drinks/Week Comments Not Currently 0 (1 standard drink = 0.6 oz pur e alcohol) [facility] Utilities Answer Date Recorded In the [...] PM CDT documented as of this encounter Medications at Time of Discharge Medication Sig Dispensed Refills Start Date End Date cholecalciferol (VITAMIN D3) 125 mcg (5,000 Unit) tablet Take by mouth daily. cyanocobalamin, vitamin B-12, (VITAMIN B-12 ORAL) Take by mouth. famotidine (PEPCID) 20 mg tablet Take 1 tablet by mouth 2 (two) times a day. 07/17/2023 NIFEdipine (ADALAT CC) 30 mg ER tablet Take 1 tablet by mouth daily. 07/19/2022 prenat.vits,kandy,min-iron-f olic tablet Take 1 tablet by mouth daily. 07/17/2023 pyridoxine HCl, vitamin B6, (PYRIDOXINE, VITAMIN B6, ORAL) Take by mouth. documented as of this encounter Plan of Treatment Not on file documented as of this encounter Procedures Procedure Name Priority Date/Time Associated Diagnosis Comments PANORAMA SCREEN Routine 09/02/2023 5:47 PM CDT Encounter For Screening For Chromosomal Anomalies (HCC) documented in this encounter Results * Panorama Screen - Sent Out Lab (09/02/2023 5:47 PM CDT) Panorama Screen SEE COMMENT 09/16/2023 10:40 AM CDT [facility] Comment: For final report, select Lab-Send Out Lab Results hyperlink below. Blood (Blood, Venous) 09/02/2023 5:47 PM CDT 09/04/2023 7:02 AM [employer] - 09/16/2023 10:40 AM CDT Specimen Information: Specimen ID: [id number] Specimen Type: Blood Specimen Collection Start Date: 09/02/2023 ??5:47 PM Specimen Received Date: 09/04/2023 ??7:02 AM Specimen ID: [id number] Specimen Type: Blood Specimen Collection Start Date: 09/02/2023 ??5:47 PM Specimen Received Date: 09/04/2023 ??7:02 AM Loreta Yoana Ramirez APRN, C.N.P. LAB GENETIC TE STING [employer] [address] [place] [address], [facility] R[facility] [employer]. [address] [place] [address] documented in this encounter Visit Diagnoses Diagnosis Encounter For Screening For Chromosomal Anomalies (HCC) documented in this encounter Additional Health Concerns Assessment Noted Time PHQ-9 Depression Total Score: 4 08/13/19 24 3:08 PM CDT documented as of this encounter
--- OUTSIDE RECORDS SUMMARY | 2023-11-27 07:53 | XMS_ITS | Encounter Summary ---
Author Organization [facility] Address [address] [place] [address] Care Team Providers Care Jewelry Sales Coordinator Name Role Phone Unavailable Primary Care Provider Unavailabl e Encounter Details Date Type Department Care Team (Latest Contact Info) Description 08/20/2023 2:57 PM CDT - 08/20/2023 11:59 PM CDT Hospital Encounter Department of Laboratory Medicine in [place], [place] [address] [place] [address] Loreta Ramirez, TREVOR, C.N.P. [address] [place] [address] Supervision Of Elderly Multigravida First Trimester (HCC); Encounter For Screening For Chromosomal Anomalies (HCC) Discharge Disposition: Home or Self Care Social History Tobacco Use Types Packs/Day Years Used Date Smoking Tobacco: Former Cigarettes 2 006 - 05/03/2021 Smokeless Tobacco: Never Comments:Started at age 15, quit in 2021 Alcohol Use Standard Drinks/Week Comments Not Currently 0 (1 standard drink = 0.6 oz pur e alcohol) [facility] Utilities Answer Date Recorded In the past 12 months has [employer], gas, oil, or water [employer] threatened to shut off services in your [...] Procedure Name Priority Date/Time Associated Diagnosis Comments PANORADC SCREEN Routine 08/20/2023 3:07 PM CDT Supervision Of Elderly Multigravida First Trimester (HCC) Encounter For Screening For Chromosomal Anomalies (HCC) documented in this encounter Results * Panorama Screen - Sent Out Lab (08/20/2023 3:07 PM CDT) Panorama Screen SEE COMMENT 09/01/2023 9:44 AM CDT [facility] Comment: For final report, select Lab-Send Out Lab Results hyperlink below. Blood (Blood, Venous) 08/20/2023 3:07 PM CDT 08/21/2023 7:01 AM CDT LILLIANA Byrnes. - 09/01/2023 9:44 AM CDT Specimen Information: Specimen ID: [id number] Specimen Type: Blood Specimen Collection Start Date: 08/20/2023 ??3:07 PM Specimen Received Date: 08/21/2023 ??7:01 AM Specimen ID: [id number] Specimen Type: Blood Specimen Collection Start Date: 08/20/2023 ??3:07 PM Specimen Received Date: 08/21/2023 ??7:01 AM Loreta Ramirez APRN, C.N.P. LAB GENETIC TE STING [employer] [address] [place] [address], [facility] R[facility]NEY [employer]. [address] [facility] [address] [place] [address] documented in this encounter Visit Diagnoses Diagnosis Supervision Of Elderly Multigravida First Trimester (HCC) Encounter For Screening For Chromosomal Anomalies ([facility]) documented in this encounter Additional Health Concerns Assessment Noted Time PHQ-9 Depression Total Score: 4 08/13/19 24 3:08 PM CDT documented as of this encounter
--- OUTSIDE RECORDS SUMMARY | 2023-11-27 07:53 | XMS_ITS | Encounter Summary ---
Author Organization [facility] Address [address] [place] [address] Care Team Providers Care Law Firm Administrator Name Role Phone Unavailable Primary Care Provider Unavailabl e Reason for Referral * Outpatient (Routine) - Pending Review Specialty Diagnoses / Procedures Referred By Jaci lagos Referred To Contact Obstetrics and Gynecology Loreta Ramirez APRN, C.N.P. [address] [place] [address] [facility] Referral ID Status Reason Start Date Expiration Date V isits Requested Visits Authorized [id number] Pending Review 08/13/2023 02/11/2025 1 1 Scheduling Instructions 13 wks Reason for Visit * Reason Comments Initial Visit * Outpatient (Routine) - Closed Specialty Diagnoses / Procedures Referred By Jaci lagos Referred To Contact Obstetrics and Gynecology Diagnoses Encounter For Supervision Of Normal Unspecified Trimester (HCC) Catrina Valenzuela M.D., Ph.D. [address] [place] [address] [facility] Referral ID Status Reason Start Date Expiration Date Visits Re quested Visits Authorized [id number] Closed 08/08/2023 08/07/2024 1 1 Encounter Details Date Type Department Care Team (Latest Contact Info) Description 08/13/2023 3:30 PM CDT Initial Department of Obstetrics and Gynecology in [place], [place] [address] [place] [address] Loreta Ramirez APRN, C.N.P. [address] [place] [phone] GA: 9w4d Discharge Disposition: Home or Self Care Social History Tobacco Use Types Packs/Day Years Used Date Smoking Tobacco: Former Cigarettes 2 006 - 05/03/2021 Smokeless Tobacco: Never Comments:Started at age 15, quit in 2021 Alcohol Use Standard Drinks/Week Comments Not Currently 0 (1 standard drink = 0.6 oz pur e alcohol) [facility] Utilities Answer Date Recorded In the past 12 months has e [employer], gas, oil, or water [employer] threatened to shut off services in your [...] PM CDT documented as of this encounter Last Filed Vital Signs Vital Sign Reading [...] Mass Index 52.15 08/13/2023 3:02 PM CDT documented in this encounter Progress Notes * Loreta Ramirez, TREVOR, C.N.P. - 08/13/2023 3:30 PM CDT SUBJECTIVE CHIEF COMPLAINT/REASON FOR VISIT Guerline Jackson is a 33 y.o. female here for a new OB visit. HISTORY OF PRESENT ILLNESS She is . No LMP recorded (lmp unknown). Patient is . Her Estimated Date of Delivery:03/13/24 determined by ultrasound at 9w4d gestational age. Gestational age is 9w4d. Her previous pregnancies were uncomplicated . She is feeling well. Just tired. No nausea, vomiting, vaginal bleeding, cramping. Relationship with FOB: significant other, not living together, Artemio. She currently lives in [place] with her 11 year old son. They are planning to move to [facility] with Artemio in the next few months. Patient is undecided about feeding plans, thinking about pumping and bottle feeding breastmilk. Last Pap Result Date: 05/2023 ASCUS/HPV positive. She is deferring colposcopy until after her . OB History Para Term AB Living 2 1 1 1 SAB IAB Ectopic Molar Multiple Live Births 1 # Outcome Date GA Lbr Kehinde/2nd Weight Sex Type Anes PTL Lv 2 Current 1 Term 12/2011 40w1d 3.697 kg M Vag-Spont N GLEN Comments: Prolonged second stage MEDICAL HISTORY Past Medical History: Diagnosis Date Abnormal Pap Smear Cervix Anxiety Generalized Disorder Depressive Disorder Dysmenorrhea Gastroesophageal Reflux Disease NOS Hypertension NOS Infection Chlamydia Vaginosis Bacterial SURGICAL HISTORY Past Surgical History: Procedure Laterality Date CHOLECYSTECTOMY FAMILY HISTORY Family History Problem Relation Name Age of Onset Hypertension Mother Graves' disease Mother Hyperlipidemia Father Hypertension Father Hypertension Sister No Known Problems Son Alzheimer's disease Maternal Grandmother Cancer Maternal Grandfather Bladder cancer Paternal Grandmother Heart attack Paternal Grandfather SOCIAL HISTORY Social History Socioeconomic History Marital status: Single Number of children: 1 Tobacco Use Smoking status: Former Current packs/day: 0.00 Types: Cigarettes Start date: 2005 Quit date: 05/03/2021 Years since quittin.2 Smokeless tobacco: Never Tobacco comments: Started at age 15, quit in 2021 Vaping Use Vaping status: never used Substance and Sexual Activity Alcohol use: Not Currently Drug use: Never Sexual activity: Yes Partners: Male Social History Narrative In a relationship with father of the baby, Artemio. Social Determinants of Health Food Insecurity: No Food Insecurity (04/18/2023) Received from [facility] Food Insecurity Worried About Running Out of Food in the Last Year: 1 Transportation Needs: No Transportation Needs (04/18/2023) Received from [facility] Transportation Needs Lack of Transportation (Medical): 1 Housing Stability: Low Risk (04/18/2023) Received from [facility] Housing Stability Unable to Pay for Housing in the Last Year: 1 ALLERGIES/CONTRAINDICATIONS No Known Allergies CURRENT MEDICATIONS Current Outpatient Medications Medication Sig Dispense Refill cholecalciferol (VITAMIN D3) 125 mcg (5,000 Unit) tablet Take by mouth daily. cyanocobalamin, vitamin B-12, (VITAMIN B-12 ORAL) Take by mouth. famotidine (PEPCID) 20 mg tablet Take 1 tablet by mouth 2 (two) times a day. NIFEdipine (ADALAT CC) 30 mg ER tablet Take 1 tablet by mouth daily. prenat.vits,kandy,xdn-khtz-efomv tablet Take 1 tablet by mouth daily. pyridoxine HCl, vitamin B6, (PYRIDOXINE, VITAMIN B6, ORAL) Take by mouth. No current facility-administered medications for this visit. REVIEW OF SYSTEMS A comprehensive review of systems was negative. OBJECTIVE VITAL SIGNS Blood Pressure: (123)/(75) 123/75 Height: [164.9 cm] 164.9 cm Weight: [142 kg] 142 kg Pulse Rate: [85] 85 PHYSICAL EXAMINATION PHYSICAL GENERAL EXAM: PELVIC EXAM: ASSESSMENT / PLAN #1 Supervision Of Elderly Multigravida First Trimester ([facility]) #2 Encounter For Screening For Chromosomal Anomalies ([facility]) #3 Complication Morbid Obesity Body Mass Index Greater Than 40 ([facility]) #4 Depression Anxiety #5 Body Mass Index 50.0 To 59.9 Adult ([facility]) #6 Preexisting Hypertension ([facility]) #7 High Risk ([facility]) The patient was screened for preeclampsia risk factors prior to 16 weeks gestation. The patient hasthe following risk factors: Major Risk Factors (2 points): chronic hypertension Minor risk factors (1 point) : age greater than or equal to 35 pre-gravid obesity (BMI >30) greater than 10 year interval Total score of major and minor risk factors: 5 The patient meets the criteria for prophylactic aspirin use given the composite score of at least 2points. Daily low-dose aspirin (81mg/daily) use in is considered safe and is associated with a low likelihood of serious maternal and/or complications. Hypertensive diseases of including gestational hypertension, pre-eclampsia with and without severe features as well as HELLP syndrome were briefly explained to the patient. The patient does not have contraindications to aspirin such as history of GI bleed, NSAID allergies or a history of gastric bypass. The risks and benefits of aspirin use were discussed with the patient and the patient will initiate aspirin therapy. Ideally, treatment should be initiated between 12 weeks and 28 weeks gestation (optimally before 16weeks) and continued daily until delivery. 5 P's Screening Tool Date/Time Do any of your parents have problems with alcohol or drugs? Do any of your friends (peers) have problems with alcohol or drugs? Does your partner have a problem with alcohol or drug use? Before you were , did you have a problem with alcohol or other drug use? In the past month have you drank any alcohol, used drugs including prescription medications for non medical reasons? 5P'sScreening Tool Score 08/08/23 1500 0 0 0 0 0 0 Expected Total Weight Gain: 5 kg-9 kg Initial labs: ordered vitamins: will take [id number] Problem list reviewed and updated. Options for genetic screening discussed: Non-invasive screen (NIPS) ordered Role of ultrasound in discussed and 1st trimester ultrasound ordered, pending Consults ordered: None, planning MFM Follow up in 4 weeks. PATIENT EDUCATION: Ready to learn, barriers to learning: none; learning preferences include listening. Explained diagnosis and treatment plan; patient expressed understanding of the content. Loreta Ramirez APRN, C.N.P. documented in this encounter Plan of Treatment Scheduled Referrals Name Type Priority Associated Diagnoses Order Schedule Obstetrics and Gynecology office visit (clinic) Outpatient Referral Routine Expected: 09/13/2023 (Approximate), Expires: 11/12/2024 documented as of this encounter Results * Panorama Screen - Sent Out Lab (08/20/2023 3:07 PM CDT) [facility] Panorama Screen SEE COMMENT 09/01/2023 9:44 AM CDT RODNEY Comment: For final report, select Lab-Send Out Lab Results hyperlink below. Blood (Blood, Venous) 08/20/2023 3:07 PM CDT 08/21/2023 7:01 AM CDT LILLIANA Byrnes. - 09/01/2023 9:44 AM CDT Specimen Information: Specimen ID: [id number] Specimen Type: Blood Specimen Collection Start Date: 08/20/2023 ??3:07 PM Specimen Received Date: 08/21/2023 ??7:01 AM Specimen ID: [id number] Specimen Type: Blood Specimen Collection Start Date: 08/20/2023 ??3:07 PM Specimen Received Date: 08/21/2023 ??7:01 AM Loreta Ramirez APRN, C.N.P. LAB [facility] [employer] [address] [place] [address], [facility] [employer] [address] [place] [address] documented in this encounter Visit Diagnoses Diagnosis Supervision Of Elderly Multigravida First Trimester (HCC)- Primary Encounter For Screening For Chromosomal Anomalies (HCC) Complication Morbid Obesity Body Mass Index Greater Than 40 (HCC) Depression Anxiety ZZ Body Mass Index 50.0 To 59.9 Adult (HCC) Preexisting Hypertension (HCC) High Risk (HCC) Supervision Of Elderly Multigravida First Trimester ([facility]) Encounter For Screening For Chromosomal Anomalies (HCC) documented in this encounter Additional Health Concerns Assessment Noted Time PHQ-9 Depression Total Score: 4 08/13/19 24 3:08 PM CDT documented as of this encounter
== END 2023-11-20 15:26 | disposition home or self-care (01) ==
LOC: NFLDREF 11-27 07:48
PROVIDERS: Visit Provider Obstetrics & Gynecology
DX: O26.892 Other specified pregnancy related conditions, second trimester (principal); N89.8 Other specified noninflammatory disorders of vagina; B37.31 Acute candidiasis of vulva and vagina; Z3A.23 23 weeks gestation of pregnancy
CPT/HCPCS: 87491; 87591

== ENCOUNTER 2023-12-24 13:48 | Outpatient (CLI) | payer OTHER, SELFPAY ==
--- NOTE | 2023-12-24 14:00 | CRLHL7_ITS ---
For Patients: As a result of the Century Cures Act, medical imaging exams and procedure reports are released immediately into your electronic medical record. You may view this report before your referring provider. If you have questions, please contact your health care provider. INDICATION: CHTN, obesity COMPARISON: none TECHNIQUE: Real time hoang scale imaging of the fetus was performed. FINDINGS: Sonographic imaging demonstrates a single living intrauterine gestation. Fetus demonstrates a regular cardiac rate of 159 beats per minute. Fetus has a vertex position. The placenta lies posteriorly. Amniotic fluid volume appears normal and there is a single deepest vertical pocket: 6.3 cm. The estimated weight is 1339gm which lies at the 58th %. BPD 10th percentile. HC 20th percentile. AC 74th percentile. FL 45th percentile. The HC/AC ratio measures 1.04 range (1.00-1.21). IMPRESSION: Sonographic gestational age is 28 weeks 5 days and sonographic due date of 03/12/2024. Good correlation with dates. Estimated weight 58th percentile. Abdominal circumference 74th percentile. Dictated by Francis Lyon MD @ 12/25/2023 9:40:12 AM (Electronically Signed)
== END 2023-12-24 13:49 | disposition home or self-care (01) ==
PROVIDERS: Visit Provider Obstetrics & Gynecology
DX: O10.913 Unspecified pre-existing hypertension complicating pregnancy, third trimester (principal); O99.213 Obesity complicating pregnancy, third trimester; Z3A.28 28 weeks gestation of pregnancy
CPT/HCPCS: 76816; 82565; 82570; 84156; 84450; 84460; 84520; 85027

== ENCOUNTER 2023-12-24 14:55 | Outpatient (CLI) | payer OTHER, SELFPAY ==
--- OUTSIDE RECORDS SUMMARY | 2023-12-24 14:59 | XMS_ITS | Continuity of Care Document ---
Author Name [facility] Organization [facility] Care Team Providers Care [employer] Advisor Name Role Phone [facility] Unavailable Unavailable Problems Combined list of problems from Department of Defense and 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 It does not include entries that were removed or entered in error. 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 DoD nasal passage blockage (stuffiness) Active Condition DoD smoking cigarettes Active Condition DoD obesity Active Condition DoD visit for: [facility] physical medical evaluation board (MEB) Inactive [...] DoD visit for: services physical Active Condition [facility]D Preventive Medicine New Patient Evaluation Adult 18-39 [...] Need For Vaccination Hepatitis A Inactive Condition DoD Need For Vaccination Against Combinations Of Diseases Inactive Condition [facility] Need For Vaccination Against Bacterial Diseases Inactive Condition [facility] Anxiety Active Condition [facility] Attention deficit hyperactivity disorder, predominantly inattentive type Active Condition [facility] Cancer cervix screening status Active Condition Nov 21 Entered By: MAILE RAZA Comment: No hx BJ 2-3Aug 2021 Entered By: MAILE RAZA Comment: 12/07/20 Colposcopy neg/ECC negAug 2021 Entered By: MAILE RAZA Comment: 11/15/21 PAP NILM/HPV neg. Next co-test due in 3 years (10/2024). [facility] Fatigue Active Condition [facility] Major depressive disorder Active Condition [facility] Nasal congestion Active Condition [facility] White blood cell count abnormal Active Condition Nov 08, 2020 Entered By: MAILE RAZA Comment: chronic, peripheral smear done 10/2020 [facility] Diagnosis: ICD-10-CM O09.522 Supervision of elderly multigravida, second trimester Active Diagnosis [facility] Diagnosis: ICD-10-CM O09.521 Supervision of elderly multigravida, first trimester Active Diagnosis [facility] Diagnosis: ICD-10-CM J34.2 Deviated nasal septum Active Diagnosis [facility] Diagnosis: ICD-10-CM E66.01 Morbid (severe) obesity due to excess calories Active Diagnosis [facility] Diagnosis: ICD-10-CM M54.50 Low back pain, unspecified Active Diagnosis [facility] Diagnosis: ICD-10-CM F90.0 Attn-defct hyperactivity disorder, predom inattentive type Active Diagnosis [facility] Diagnosis: ICD-10-CM F41.9 Anxiety disorder, unspecified Active Diagnosis [facility] Diagnosis: ICD-10-CM M25.552 Pain in left hip Active Diagnosis [facility] Diagnosis: ICD-10-CM R09.81 Nasal congestion Active Diagnosis [facility] Diagnosis: ICD-10-CM L70.8 Other acne Active Diagnosis [facility] Diagnosis: ICD-10-CM K58.2 Mixed irritable bowel syndrome Active Diagnosis SHIV Wall [facility] Diagnosis: ICD-10-CM H52.03 Hypermetropia, bilateral Active Diagnosis [facility] Diagnosis: ICD-10-CM R53.82 Chronic fatigue, unspecified Active Diagnosis [facility] Diagnosis: ICD-10-CM Z13.89 Encounter for screening for other disorder Active Diagnosis SHIV Wall [facility] Diagnosis: ICD-10-CM M79.671 Pain in right foot Active Diagnosis RANULFO BARROSO [facility] Diagnosis: ICD-10-CM I10 Essential (primary) hypertension Active Diagnosis [facility] Diagnosis: ICD-10-CM F33.41 Major depressive disorder, recurrent, in partial remission Active [facility] Diagnosis: ICD-10-CM R06.00 Dyspnea, unspecified Active Diagnosis [facility] Diagnosis: ICD-10-CM F32.A Depression, unspecified Active Diagnosis [facility] Medications Combined list [...] Oct 08, 2023 1 Nov 07, 2023 [id number] Oct 13, 2023 ALESSANDRA MCLAUGHLIN [facility] RESPIR ATORY (INHAL ATION) 11/07/2023 [id number] ALBERTO MCLAUGHLIN 2023 1 [facility] BISACODYL 5MG TAB,EC BISACODY L 5MG TAB,EC TAKE TWO TABLETS BY MOUTH ONCE FOR COLON PREP FOR COLON PREP Nov 13, 2022 2 Dec 13, 2022 [id number] Nov 13, 2022 [facility] ORAL 12/13/2022 [id number] GERRY HOLM R 2022 2 [facility] BISACODYL 5MG TAB,EC BISACODY L 5MG TAB,EC TAKE TWO TABLETS BY MOUTH DIRECTED FOR COLON PREP FOR COLON PREP Sep 27, 2022 2 Oct 27, 2022 [id number] Sep 27, 2022 GERRY HOLM R [facility] ORAL 10/27/2022 [id number] MIHAI GERRY Nata 2022 2 [facility] CICLOPIROX 8% SOLN,TOP CICLOPIR OX 8% SOLN,TOP Active APPLY THIN FILM TOPICALL Y EVERY DAY FOR FUNGAL NAIL INFECTIO N -- USE UNTIL RESOLUTI ON OR 48 WEEKS FOR FUNGAL NAIL INFECTIO N Dec 31, 2022 19.8 Jan 01, 2024 [id number] Dec 31, 2022 ADDIE VALDEZ [facility] TOPICA L ACTIVE 01/01/2024 [id number] LEOPOLDO GUERRERO 2022 19.8 [facility] FLUCONAZOLE 150MG TAB FLUCONAZ OLE 150MG TAB Disconti nued TAKE ONE TABLET BY MOUTH ONCE FOR ONE DOSE May 14, 2023 1 Jun 13, 2023 [id number] May 14, 2023 RICARDO FELIPE [facility] ORAL DISCONT INUED 06/13/2023 [id number] Bonny FELIPE 2023 1 [facility] IMIQUIMOD 5% CREAM,TOP,P KT,0.25GM IMIQUIMO D 5% CREAM,TO P,PKT,0. 25GM Active APPLY 1 PACKET TOPICALL Y FRIDAY, Y AND FRIDAY AT BEDTIME LEAVE ON SKIN FOR 8 HOURS. DO NOT USE WHILE Oct 30, 2023Oct 30, 2024 [id number] Nov 01, 2023 FB-HRDLI ARNOLDO HARO [facility] TOPICA L ACTIVE 10/30/2024 [id number] FB-HRDLIC HKA,KRYST A M 2023 24 [place] [facility] LOPERAMIDE HCL 2MG CAP LOPERAMI DE HCL 2MG CAP TAKE ONE TO TWO CAPSULES BY MOUTH NEEDED UP TO THREE TIMES DAILY FOR DIARRHEA FOR DIARRHEA Sep 27, 2022 100 Sep 28, 2023 [id number] Sep 27, 2022 GERRY HOLM R [facility] ORAL 09/28/2023 [id number] GERRY HOLM R 2022 100 [facility] METRONIDAZO LE 500MG TAB METRONID AZOLE 500MG TAB Disconti nued TAKE ONE TABLET BY MOUTH TWICE A DAY FOR 7 DAYS May 14, 2023 14 Jun 13, 2023 [id number] May 14, 2023 RICARDO FELIPE S [facility] ORAL DISCONT INUED 06/13/2023 [id number] Bonny FELIPE 2023 14 [facility] MODAFINIL 200MG TAB MODAFINI L 200MG TAB Disconti nued TAKE ONE AND ONE-HALF TABLETS BY MOUTH EVERY MORNING FOR MOOD, ENERGY FOR MOOD, ENERGY Nov 28, 2022 45 May 31, 2023 [id number] Apr 30, 2023 YUHAAVIATAM, FR[facility]CK E [place] ORAL DISCONT INUED BY PROVIDE R 05/31/2023 [id number] YUHAAVIATAM,A BIGAIL E 2022 45 [facility] MODAFINIL 200MG TAB MODAFINI L 200MG TAB Disconti nued TAKE ONE TABLET BY MOUTH EVERY MORNING FOR MOOD, ENERGY FOR ENERGY, FOCUS, MOOD FOR MOOD, ENERGY Nov 12, 2022 30 May 16, 2023 [id number] Nov 13, 2022 YUHAAVIATAM, FRANCK E [facility] ORAL DISCONT INUED (EDIT) 05/16/2023 [id number] YUHAAVIATAM,A BIGAIL E 2022 30 [facility] MODAFINIL 200MG TAB MODAFINI L 200MG TAB Disconti nued TAKE ONE-HALF TABLET BY MOUTH EVERY MORNING FOR 3 DAYS, THEN TAKE ONE TABLET EVERY MORNING FOR ENERGY, FOCUS, MOOD FOR ENERGY, MOOD Oct 09, 2022 29 Apr 11, 2023 [id number] Oct 09, 2022 YUHAAVIATAM, FRANCK E [facility] ORAL DISCONT INUED 04/11/2023 [id number] YUHAAVIATAM,A BIGAIL E 2022 29 [facility] MULTIVITAMI NS W/MINERALS, CAP/TAB MULTIVIT AMINS W/MINERA LS,PRENA BRII CAP/TAB Active TAKE 1 TABLET BY MOUTH EVERY DAY FOR SUPPLEME NT FOR SUPPLEME NT August 07, 2023 100 August 07, 2024 [id number] A August 08, 2023 BINA MAYA [facility] ORAL ACTIVE 08/07/2024 [id number] BINA BAI 2023 100 [facility] MULTIVITAMI NS W/MINERALS, CAP/TAB MULTIVIT AMINS W/MINERA LS,PRENA BRII CAP/TAB Disconti nued TAKE 1 TABLET BY MOUTH EVERY DAY FOR SUPPLEME NT FOR SUPPLEME NT Jul 19, 2022 100 Jul 20, 2023 [id number] Mar 06, 2023 BINA MAYA [facility] ORAL DISCONT INUED 07/20/2023 [id number] BINA BAI 2022 100 [facility] NIFEDIPINE (EQV-CC) 30MG TAB,SA NIFEDIPI NE (EQV-CC) 30MG TAB,SA Active TAKE ONE TABLET BY MOUTH EVERY DAY FOR BLOOD PRESSURE FOR BLOOD PRESSURE August 07, 2023 90 August 07, 2024 [id number] A Dec 22, 2023 BINA MAYA [facility] ORAL ACTIVE 08/07/2024 [id number] BINA BAI 2023 90 [facility] NIFEDIPINE (EQV-CC) 30MG TAB,SA NIFEDIPI NE (EQV-CC) 30MG TAB,SA Disconti nued TAKE ONE TABLET BY MOUTH EVERY DAY FOR BLOOD PRESSURE FOR BLOOD PRESSURE Jul 19, 2022 90 Jul 20, 2023 [id number] May 22, 2023 BINA MAYA [facility] ORAL DISCONT INUED 07/20/2023 [id number] BINA BAI 2022 90 [facility] OMEPRAZOLE 20MG CAP,EC OMEPRAZO LE 20MG CAP,EC Disconti nued TAKE TWO CAPSULES BY MOUTH EVERY DAY BEFORE A MEAL Jul 16, 2023 60 August 15, 2023 [id number] Jul 18, 2023 FB-ISCHE ,IMANI W [facility] ORAL DISCONT INUED 08/15/2023 [id number] FB-ISCHE, IMANI W 2023 60 [facility] PEG-3350/EL ECTROLYTES PWDR PEG-3350 /ELECTRO LYTES PWDR TAKE ONE AND ONE-HALF CONTAINE RS BY MOUTH DIRECTED FOR COLON PREP FOR COLON PREP Nov 13, 2022 2 Dec 13, 2022 [id number] Nov 13, 2022 GERRY HOLM [facility] ORAL 12/13/2022 [id number] GERRY HOLM 2022 2 [facility] PEG-3350/EL ECTROLYTES PWDR PEG-3350 /ELECTRO LYTES PWDR TAKE ONE CONTAINE R BY MOUTH DIRECTED FOR COLON PREP FOR COLON PREP Sep 27, 2022 1 Oct 27, 2022 [id number] Sep 27, 2022 GERRY HOLM [facility] ORAL 10/27/2022 [id number] GERRY HOLM 2022 1 [facility] VENLAFAXINE HCL 150MG 24HR CAP,SA VENLAFAX INE HCL 150MG 24HR CAP,SA Disconti nued TAKE ONE CAPSULE BY MOUTH EVERY DAY FOR ANXIETY, PAIN FOR ANXIETY, PAIN Jan 16, 2023 90 Jan 17, 2024 [id number] Apr 07, 2023 LEEANNA FRANCK E [facility] ORAL DISCONT INUED BY KAMALA R 01/17/2024 [id number] YUHAAVIATAM,A BIGAIL E 2022 90 [facility] VENLAFAXINE HCL 37.5MG 24HR CAP,SA VENLAFAX INE HCL 37.5MG 24HR CAP,SA Disconti nued TAKE ONE CAPSULE BY MOUTH EVERY DAY WITH A MEAL Jun 06, 2023 14 Jul 05, 2023 [id number] Jun 06, 2023 [facility] INU[facility] BY PROVIDE R 07/05/2023 [id number] [facility]LAYE RO[facility] 2023 [facility] VENLAFAXINE HCL 37.5MG 24HR CAP,SA VENLAFAX INE HCL 37.5MG 24HR CAP,SA Disconti nued TAKE ONE CAPSULE BY MOUTH EVERY DAY FOR ANXIETY, PAIN FOR ANXIETY, PAIN Oct 10, 2022 90 Oct 11, 2023 [id number] Oct 14, 2022 YUHAAVIATAM, FRANCK E [facility] ORAL DISCONT INUED (EDIT) 10/11/2023 [id number] YUHAAVIATAM,A BIGAIL E 2022 90 [facility] VENLAFAXINE HCL 75MG 24HR CAP,SA VENLAFAX INE HCL 75MG 24HR CAP,SA Disconti nued TAKE ONE CAPSULE BY MOUTH EVERY DAY WITH MEAL FOR 14 DAYS Jun 06, 2023 14 Jul 05, 2023 [id number] Jun 06, 2023 [facility] ORAL DISCONT INUED BY PROVIDE R 07/05/2023 [id number] ABDOULAYE ROOT 2023 14 [facility] VENLAFAXINE HCL 75MG 24HR CAP,SA VENLAFAX INE HCL 75MG 24HR CAP,SA Disconti nued TAKE ONE CAPSULE BY MOUTH EVERY DAY FOR ANXIETY, PAIN FOR ANXIETY, PAIN Nov 28, 2022 90 Nov 29, 2023 [id number] Dec 03, 2022 YUHAAVIATAM, FRANCK E [facility] ORAL DISCONT INUED (EDIT) 11/29/2023 [id number] YUHAAVIATAM,A BIGAIL E 2022 90 [facility] Allergies, Adverse Reactions, Alerts Combined list of allergies from Department of Defense and 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 It does not include entries that were removed or entered in error. Substance Category Reaction Severity Reaction type Status Date Reported Comments Source No Known Allergies Drug allergy (disorder) active 12/25/2007 [employer] Immunizations Combined list of available immunizations from the Department of [facility] and 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 TD (ADULT), 2 LF TETANUS TOXOID, PRESERVATIVE FREE, ADSORBED 2018 09 complet ed sanofi, [id number], EX 12/22/19 [facility] INFLUENZA, SEASONAL, INJECTABLE 2012 141 complet ed [facility] HPV, QUADRIVALENT 2 2011 62 complet ed [facility] INFLUENZA, SEASONAL, INJECTABLE 2011 141 complet ed [facility] TDAP 2011 115 complet ed [facility] INFLUENZA, SEASONAL, INJECTABLE 2011 141 complet ed [facility] HPV, QUADRIVALENT 1 2010 62 complet ed [facility] Novel influenza-H1N 1-09, injectable 1 2008 [id number] 127 [employer]is [employer] Es. (NOV) complet ed Novel influenza -S9U4-61, injectabl e [facility] anthrax vaccine 2 2008 [id number] [employer] ([facility]) complet ed anthrax vaccine [facility] anthrax vaccine 1 2008 [id number] [employer] ([facility]) complet ed anthrax vaccine [facility] vaccinia (smallpox) vaccine 1 2008 UNK 75 Unknown (UNK) Not Given vaccinia (smallpox ) vaccine [facility] typhoid Vi capsular polysaccharid e vaccine 1 2008 [id number] Unknown (UNK) comple t ed typhoid Vi capsular polysacch aride vaccine [facility] human papilloma virus vaccine, quadrivalent 1 2008 IBETH RUBY [id number] Merck (MSD) complet ed human papilloma virus vaccine, quadrival ent [facility] influenza virus vaccine, live, attenuated, for intranasal use 1 2007 [id number] Other (OTH) complet ed influenza virus vaccine, live, attenuate d, for intranasa l use DoD hepatitis A vaccine, adult dosage 2 2007 [id number] 52 Unknown (UNK) complet ed hepatitis A vaccine, adult dosage DoD measles, mumps and rubella virus vaccine 1 2007 UNK 03 Unknown (UNK) Not Given measles, mumps and rubella virus vaccine DoD poliovirus vaccine, inactivated 1 2007 [id number] Sanofi Pasteur (PMC) complet ed polioviru s vaccine, inactivat ed DoD varicella virus vaccine 1 2007 UNK 21 Unknown (UNK) Not Given varicella virus vaccine DoD hepatitis B vaccine, adult dosage 1 2007 UNK 43 Unknown (UNK) Not Given hepatitis B vaccine, adult dosage DoD hepatitis A vaccine, adult dosage 1 2007 [id number] 52 SmithKline (SKB) complet ed hepatitis A vaccine, adult dosage DoD influenza virus vaccine, live, attenuated, for intranasal use 1 2007 [id number] 111 [employer]ri[employer]. (MED) complet ed influenza virus vaccine, live, attenuate d, for intranasa l use DoD meningococcal polysaccharid e (groups A, C, Y and W-135) diphtheria toxoid conjugate vaccine (MCV4P) 1 2007 [id number] Sanofi Pasteur (PMC) complet ed meningoco ccal polysacch aride (groups A, C, Y and W-135) diphtheri a toxoid conjugate vaccine (MCV4P) DoD tetanus toxoid, reduced diphtheria toxoid, and acellular pertu is vaccine, adsorbed 1 2007 [id number] 115 Sanofi Pasteur (PMC) complet ed tetanus toxoid, reduced diphtheri a toxoid, and acellular pertussis vaccine, adsorbed DoD TDAP 2007 115 complet ed [place] [facility] [facility] Results Combined list of recent chemistry, hematology and other laboratory results from Department of Defense and Veterans Affairs, ranging from 15 months to all on record, depending upon the facility. Order Name Results Value Reference Range Date Interpretation Specimen Comments Source C.TRACHO MATIS/N. GONORRHE A DNA CHLAMYDIA TRACHOMATI S DNA [PRESENCE] IN URINE BY MAL WITH PROBE DETECTION NOT DETECTED 12/31 Specimen Type: URINE No comment entered. Ordering Provider: Angy GUERRERO Report Released Date/Time: Dec 31, 2022 01:23 PM Reporting Lab: [facility] [address] Performing Lab: [facility] [address] [facility] C.TRACHO MATIS/N. GONORRHE A DNA NEISSERIA GONORRHOEA E DNA [PRESENCE] IN URINE BY MAL WITH PROBE DETECTION NOT DETECTED 12/31 Specimen Type: URINE No comment entered. Ordering Provider: Angy GUERRERO Report Released Date/Time: Dec 31, 2022 01:23 PM Reporting Lab: [facility] [address] Performing Lab: [place] [id number] [facility] C.TRACHO MATIS/N. GONORRHE A DNA INTERPRETA TION AND REVIEW OF LABORATORY RESULTS Infectio us agent DNA is not detected by this assay 12/31 Specimen Type: URINE No comment entered. Ordering Provider: Angy GUERRERO Report Released Date/Time: Dec 31, 2022 01:23 PM Reporting Lab: [facility] [address] Performing Lab: [facility] [address] [facility] HCG, QUAL CHORIOGONA DOTROPIN.B ETA SUBUNIT ( TEST) [PRESENCE] IN URINE NEGATIVE 12/31 Specimen Type: URINE No comment entered. Ordering Provider: Angy GUERRERO Report Released Date/Time: Dec 31, 2022 01:23 PM Reporting Lab: [facility] [address] Performing Lab: [facility] [address] [facility] C-REACTI VE PROTEIN C REACTIVE PROTEIN [MASS/VOLU ME] IN SERUM OR PLASMA BY HIGH SENSITIVIT Y METHOD 10.44 mg/L <5.00 - 5.00 12/31 H Specimen Type: PLASMA Comment: Elevated triglycerid e result from a non-fasting specimen should be interpreted with caution. A fasting panel is recommended for accurate triglycerid es when trigs are >200 from a non-fasting specimen. Ordering Provider: LUZ MARINA,SOP HIA A Report Released Date/Time: Jul 19, 2022 09:34 AM Reporting Lab: [facility] [address] Performing Lab: [facility] [address] [place] [facility] CBC & DIFF LEUKOCYTES [#/VOLUME] IN BLOOD BY AUTOMATED COUNT 13.98 10*3/uL 4.0 - 11.0 12/31 H Specimen Type: BLOOD Comment: Manual Differentia l Performed Ordering Provider: JAKUB RAZA Report Released Date/Time: Jul 18, 2022 03:26 PM Reporting Lab: [facility] [address] Performing Lab: [facility] [address] [place] [facility] CBC & DIFF ERYTHROCYT ES [#/VOLUME] IN BLOOD BY AUTOMATED COUNT 4.29 10*6/uL 4.0 - 5.4 12/31 Specimen Type: BLOOD Comment: Manual Differentia l Performed Ordering Provider: JAKUB RAZA Report Released Date/Time: Jul 18, 2022 03:26 PM Reporting Lab: [facility] [address] Performing Lab: [facility] [address] [place] [facility] CBC & DIFF HEMOGLOBIN [MASS/VOLU ME] IN BLOOD 14.0 g/dL 11.5 - 16 12/31 Specimen Type: BLOOD Comment: Manual Differentia l Performed Ordering Provider: JAKUB RAZA Report Released Date/Time: Jul 18, 2022 03:26 PM Reporting Lab: [facility] [address] Performing Lab: [facility] [address] [place] [facility] CBC & DIFF HEMATOCRIT [VOLUME FRACTION] OF BLOOD BY AUTOMATED COUNT 40.2 34.5 - 48 12/31 Specimen Type: BLOOD Comment: Manual Differentia l Performed Ordering Provider: JAKUB RAZA Report Released Date/Time: Jul 18, 2022 03:26 PM Reporting Lab: [facility] [address] Performing Lab: [facility] [address] [place] [facility] CBC & DIFF MCV [ENTITIC VOLUME] BY AUTOMATED COUNT 93.7 fL 80 - 100 12/31 Specimen Type: BLOOD Comment: Manual Differentia l Performed Ordering Provider: JAKUB RAZA Report Released Date/Time: Jul 18, 2022 03:26 PM Reporting Lab: [facility] [address] Performing Lab: [facility] [address] [place] [facility] CBC & DIFF MCH [ENTITIC MASS] BY AUTOMATED COUNT 32.6 pg 27 - 33 12/31 Specimen Type: BLOOD Comment: Manual Differentia l Performed Ordering Provider: JAKUB RAZA Report Released Date/Time: Jul 18, 2022 03:26 PM Reporting Lab: [facility] [address] Performing Lab: [facility] [address] [place] [facility] CBC & DIFF MCHC [MASS/VOLU ME] BY AUTOMATED COUNT 34.8 g/dL 32.0 - 37.5 12/31 Specimen Type: BLOOD Comment: Manual Differentia l Performed Ordering Provider: JAKUB RAZA Report Released Date/Time: Jul 18, 2022 03:26 PM Reporting Lab: [facility] [address] Performing Lab: [facility] [address] [place] [facility] CBC & DIFF PLATELETS [#/VOLUME] IN BLOOD BY AUTOMATED COUNT 361 10*3/uL 150 - 400 12/31 Specimen Type: BLOOD Comment: Manual Differentia l Performed Ordering Provider: JAKUB RAZA Report Released Date/Time: Jul 18, 2022 03:26 PM Reporting Lab: [facility] [address] Performing Lab: [facility] [address] [place] [facility] CBC & DIFF PLATELET MEAN VOLUME [ENTITIC VOLUME] IN BLOOD BY AUTOMATED COUNT 8.8 fL 7.4 - 10.4 12/31 Specimen Type: BLOOD Comment: Manual Differentia l Performed Ordering Provider: JAKUB RAZA Report Released Date/Time: Jul 18, 2022 03:26 PM Reporting Lab: [facility] [address] Performing Lab: [facility] [address] [place] [facility] CBC & DIFF NEUTROPHIL S/100 LEUKOCYTES IN BLOOD BY MANUAL COUNT 59.9 12/31 Specimen Type: BLOOD Comment: Manual Differentia l Performed Ordering Provider: JAKUB RAZA Report Released Date/Time: Jul 18, 2022 03:26 PM Reporting Lab: [facility] [address] Performing Lab: [facility] [address] [place] [facility] CBC & DIFF LYMPHOCYTE S/100 LEUKOCYTES IN BLOOD BY MANUAL COUNT 31.5 12/31 Specimen Type: BLOOD Comment: Manual Differentia l Performed Ordering Provider: JAKUB RAZA Report Released Date/Time: Jul 18, 2022 03:26 PM Reporting Lab: [facility] [address] Performing Lab: [facility] [address] [place] [facility] CBC & DIFF ERYTHROCYT E DISTRIBUTI ON WIDTH [RATIO] BY AUTOMATED COUNT 12.5 11.5 - 14.5 12/31 Specimen Type: BLOOD Comment: Manual Differentia l Performed Ordering Provider: JAKUB RAZA Report Released Date/Time: Jul 18, 2022 03:26 PM Reporting Lab: [facility] [address] Performing Lab: [facility] [address] [place] [facility] CBC & DIFF MONOCYTES/ 100 LEUKOCYTES IN BLOOD BY AUTOMATED COUNT 4.1 12/31 Specimen Type: BLOOD Comment: Manual Differentia l Performed Ordering Provider: JAKUB RAZA Report Released Date/Time: Jul 18, 2022 03:26 PM Reporting Lab: [facility] [address] Performing Lab: M [facility] [address] [place] [facility] CBC & DIFF EOSINOPHIL S/100 LEUKOCYTES IN BLOOD BY AUTOMATED COUNT 3.0 12/31 Specimen Type: BLOOD Comment: Manual Differentia l Performed Ordering Provider: JAKUB RAZA Report Released Date/Time: Jul 18, 2022 03:26 PM Reporting Lab: [facility] [address] Performing Lab: [facility] [address] [place] [facility] CBC & DIFF BASOPHILS/ 100 LEUKOCYTES IN BLOOD BY MANUAL COUNT 1.0 12/31 Specimen Type: BLOOD Comment: Manual Differentia l Performed Ordering Provider: JAKUB RAZA Report Released Date/Time: Jul 18, 2022 03:26 PM Reporting Lab: [facility] [address] Performing Lab: [facility] [address] [place] [facility] CBC & DIFF MYELOCYTES /100 LEUKOCYTES IN BLOOD BY MANUAL COUNT 0.5 12/31 Specimen Type: BLOOD Comment: Manual Differentia l Performed Ordering Provider: JAKUB RAZA Report Released Date/Time: Jul 18, 2022 03:26 PM Reporting Lab: [facility] [address] Performing Lab: [facility] [address] [place] [facility] CBC & DIFF LYMPHOCYTE S [#/VOLUME] IN BLOOD BY AUTOMATED COUNT 4.40 10*3/uL 1.0 - 4.0 12/31 H Specimen Type: BLOOD Comment: Manual Differentia l Performed Ordering Provider: JAKUB RAZA Report Released Date/Time: Jul 18, 2022 03:26 PM Reporting Lab: [facility] [address] Performing Lab: [facility] [address] [place] [facility] CBC & DIFF MONOCYTES [#/VOLUME] IN BLOOD BY AUTOMATED COUNT 0.57 10*3/uL 0.1 - 1.0 12/31 Specimen Type: BLOOD Comment: Manual Differentia l Performed Ordering Provider: JAKUB RAZA Report Released Date/Time: Jul 18, 2022 03:26 PM Reporting Lab: [facility] [address] Performing Lab: [facility] [address] [place] [facility] CBC & DIFF NEUTROPHIL S [#/VOLUME] IN BLOOD BY AUTOMATED COUNT 8.37 10*3/uL 2.0 - 7.7 12/31 H Specimen Type: BLOOD Comment: Manual Differentia l Performed Ordering Provider: JAKUB RAZA Report Released Date/Time: Jul 18, 2022 03:26 PM Reporting Lab: [facility] [address] Performing Lab: [facility] [address] [place] [facility] CBC & DIFF EOSINOPHIL S [#/VOLUME] IN BLOOD BY AUTOMATED COUNT 0.42 10*3/uL 0 - 0.5 12/31 Specimen Type: BLOOD Comment: Manual Differentia l Performed Ordering Provider: JAKUB RAZA Report Released Date/Time: Jul 18, 2022 03:26 PM Reporting Lab: [facility] [address] Performing Lab: [facility] [address] [place] [facility] CBC & DIFF BASOPHILS [#/VOLUME] IN BLOOD BY AUTOMATED COUNT 0.14 10*3/uL 0 - 0.2 12/31 Specimen Type: BLOOD Comment: Manual Differentia l Performed Ordering Provider: JAKUB RAZA Report Released Date/Time: Jul 18, 2022 03:26 PM Reporting Lab: [facility] [address] Performing Lab: [facility] [address] [facility] CBC & DIFF MYELOCYTES [#/VOLUME] IN BLOOD BY MANUAL COUNT 0.07 10*3/uL 12/31 Specimen Type: BLOOD Comment: Manual Differentia l Performed Ordering Provider: JAKUB RAZA Report Released Date/Time: Jul 18, 2022 03:26 PM Reporting Lab: [facility] [address] Performing Lab: [facility] [address] [facility] CBC & DIFF ERYTHROCYT E MORPHOLOGY FINDING [IDENTIFIE R] IN BLOOD NORMOCYT IC, NORMOCHR OMIC 12/31 Specimen Type: BLOOD Comment: Manual Differentia l Performed Ordering Provider: JAKUB RAZA Report Released Date/Time: Jul 18, 2022 03:26 PM Reporting Lab: [facility] [address] Performing Lab: [facility] [address] [place] [facility] COMPREHE NSIVE METABOLI C PANEL+MG CREATININE [...] Jul 19, 2022 09:34 AM Reporting Lab: [facility] [address] Performing Lab: [place] [address] [facility] COMPREHE NSIVE METABOLI C PANEL+MG UREA NITROGEN [...] Jul 19, 2022 09:34 AM Reporting Lab: [facility] [address] Performing Lab: [facility] [address] [facility] COMPREHE NSIVE METABOLI C PANEL+MG GLUCOSE [MASS/VOLU [...] Jul 19, 2022 09:34 AM Reporting Lab: [facility] [address] Performing Lab: [facility] [address] [facility] COMPREHE NSIVE METABOLI C PANEL+MG SODIUM [MOLES/VOL [...] Jul 19, 2022 09:34 AM Reporting Lab: [facility] [address] Performing Lab: [place] [address] [facility] COMPREHE NSIVE METABOLI C PANEL+MG POTASSIUM [...] Jul 19, 2022 09:34 AM Reporting Lab: [facility] [address] Performing Lab: [place] [address] [facility] COMPREHE NSIVE METABOLI C PANEL+MG CHLORIDE [MOLES/VOL [...] Jul 19, 2022 09:34 AM Reporting Lab: [facility] [address] Performing Lab: [facility] [address] [facility] COMPREHE NSIVE METABOLI C PANEL+MG CARBON DIOXIDE, [...] Jul 19, 2022 09:34 AM Reporting Lab: [facility] [address] Performing Lab: [facility] [address] [facility] COMPREHE NSIVE METABOLI C PANEL+MG CALCIUM [MASS/VOLU [...] Jul 19, 2022 09:34 AM Reporting Lab: [facility] [address] Performing Lab: [facility] [address] [facility] COMPREHE NSIVE METABOLI C PANEL+MG PROTEIN [...] Jul 19, 2022 09:34 AM Reporting Lab: [facility] [address] Performing Lab: [facility] [address] [facility] COMPREHE NSIVE METABOLI C PANEL+MG ALBUMIN [MASS/VOLU [...] Jul 19, 2022 09:34 AM Reporting Lab: [facility] [address] Performing Lab: [facility] [address] [facility] COMPREHE NSIVE METABOLI C PANEL+MG BILIRUBIN. [...] Jul 19, 2022 09:34 AM Reporting Lab: [place] [phone] Performing Lab: [place] [address] [facility] COMPREHE NSIVE METABOLI C PANEL+MG MAGNESIUM [MASS/VOLU [...] Jul 19, 2022 09:34 AM Reporting Lab: [place] [address] Performing Lab: [place] [id number] [facility] COMPREHE NSIVE METABOLI C PANEL+MG ANION GAP [...] Jul 19, 2022 09:34 AM Reporting Lab: [place] [address] Performing Lab: [place] [address] [facility] COMPREHE NSIVE METABOLI C PANEL+MG ALKALINE PHOSPHATAS [...] Jul 19, 2022 09:34 AM Reporting Lab: [place] [phone] Performing Lab: [facility] [address] [place] [facility] COMPREHE NSIVE METABOLI C PANEL+MG ALANINE [...] Jul 19, 2022 09:34 AM Reporting Lab: [facility] [address] Performing Lab: [facility] [address] [place] [facility] COMPREHE NSIVE METABOLI C PANEL+MG ASPARTATE [...] Jul 19, 2022 09:34 AM Reporting Lab: [facility] [address] Performing Lab: [facility] [address] [facility] COMPREHE NSIVE METABOLI C PANEL+MG GLOMERULAR [...] Jul 19, 2022 09:34 AM Reporting Lab: [facility] [address] Performing Lab: [facility] [address] [place] [facility] LIPID PANEL,NO N-FASTIN G CHOLESTERO L [...] Jul 19, 2022 09:34 AM Reporting Lab: [facility] [address] Performing Lab: [facility] [address] [place] [facility] LIPID PANEL,NO N-FASTIN G CHOLESTERO L [...] Jul 19, 2022 09:34 AM Reporting Lab: [facility] [address] Performing Lab: [facility] [address] [place] [facility] LIPID PANEL,NO N-FASTIN G CHOLESTERO L [...] Jul 19, 2022 09:34 AM Reporting Lab: [facility] [address] Performing Lab: [facility] [address] [place] [facility] LIPID PANEL,NO N-FASTIN G CHOLESTERO L [...] Jul 19, 2022 09:34 AM Reporting Lab: [facility] [address] Performing Lab: [facility] [address] [place] [facility] LIPID PANEL,NO N-FASTIN G CHOLESTERO L [...] Jul 19, 2022 09:34 AM Reporting Lab: [facility] [address] Performing Lab: [facility] [address] [place] [facility] LIPID PANEL,NO N-FASTIN G TRIGLYCERI DE [...] Jul 19, 2022 09:34 AM Reporting Lab: [facility] [address] Performing Lab: [facility] [address] [place] [facility] ANTI-HEP C(EIA) HEPATITIS C VIRUS AB [PRESENCE] IN SERUM NEGATIVE 12/31 Specimen Type: SERUM No comment entered. Ordering Provider: Angy GUERRERO Report Released Date/Time: Dec 31, 2022 01:23 PM Reporting Lab: [facility] [address] Performing Lab: [facility] [address] [place] [facility] HIV AG/AB SCREEN HIV 1+2 AB+HIV1 P24 AG [PRESENCE] IN SERUM OR PLASMA BY IMMUNOASSA Y NEGATIVE 12/31 Specimen Type: SERUM No comment entered. Ordering Provider: Angy GUERRERO Report Released Date/Time: Dec 31, 2022 01:23 PM Reporting Lab: [facility] [address] Performing Lab: [facility] [address] [facility] SYPHILIS ANTIBODY SYPHILIS SCREEN TEST STATUS [facility] NEGATIVE 12/31 Specimen Type: SERUM No comment entered. Ordering Provider: Angy GUERRERO Report Released Date/Time: Dec 31, 2022 01:23 PM Reporting Lab: [facility] [address] Performing Lab: [facility] [address] [place] [facility] PROLACTI N PROLACTIN [MASS/VOLU ME] IN SERUM OR PLASMA BY IMMUNOASSA Y 2.51 ng/mL <26.53 - 26.53 10/29 Specimen Type: PLASMA No comment entered. Ordering Provider: Angy GUERRERO Report Released Date/Time: Oct 25, 2022 04:35 PM Reporting Lab: [facility] [address] Performing Lab: [facility] [address] [facility] Vital Signs Combined list of inpatient and outpatient Vital Signs from Department of Defense and Veterans Affairs, ranging from 12 months to all on record, depending upon the facility. Vital Sign Value Date Comments Source SYSTOLIC BLOOD PRESSURE 138 02/12/2023 14:30:32 [facility] DIASTOLIC BLOOD PRESSURE 92 02/12/2023 14:30:32 [facility] PULSE OXIMETRY 98% 02/12/2023 14:30:32 [facility] WEIGHT 290 02/12/2023 14:30:32 [facility] BMI 48kg/m2 02/12/2023 14:30:32 [facility] PAIN 0 02/12/2023 14:30:32 [facility] TEMPERATURE 97.4 02/12/2023 14:30:32 [facility] PULSE 96 02/12/2023 14:30:32 [facility] RESPIRATION 20 02/12/2023 14:30:32 [facility] SYSTOLIC BLOOD PRESSURE 116 12/31/2022 12:57:07 [facility] DIASTOLIC BLOOD PRESSURE 83 12/31/2022 12:57:07 [facility] PULSE OXIMETRY 97% 12/31/2022 12:57:07 [facility] WEIGHT 284.9 12/31/2022 12:57:07 [facility] BMI 47kg/m2 12/31/2022 12:57:07 [facility] PAIN 0 12/31/2022 12:57:07 [facility] TEMPERATURE 98.1 12/31/2022 12:57:07 [facility] PULSE 93 12/31/2022 12:57:07 [facility] RESPIRATION 18 12/31/2022 12:57:07 [facility] Encounters Combined list of: 1) Encounters from Department of [facility] Affairs [facility] 2) Encounters from the Department of Defense facilities going back up to 280 months. Location Location Details Encounter Type Encounter Number Reason For Visit Attending Provider ADM Date DC Date Status Disposition Source [employer](IEP Hearing Conservat ion) OUTPATIENT [id number] LESLY CHRISTENSEN 04/09 Released w/o Limitations [employer](I EP Hearing Conserv ation) [employer](RE C Post Immunizat ion) OUTPATIENT [id number] IET PPD JOANNE TABARES 04/10 Released w/o Limitations [employer](M AHC Post Immuniz ation) [employer](RE C Post Immunizat ion) OUTPATIENT [id number] IET IMMUNIZ ATIONS LISSETT VERMA 04/13 Released w/o Limitations [employer](M AHC Post Immuniz ation) [employer](C Ambulator y) OUTPATIENT [id number] rtd MARCY ESPINOZA 06/05 Released with Work/Duty Limitations [employer](T MC Ambulat ory) [employer]([facility] Ambulator y) OUTPATIENT [id number] SAM MCKEON 06/14 Released with Work/Duty Limitations [employer](T MC Ambulat ory) PERE[facility] Berrios([facility]) OUTPATIENT [id number] SELF CARE CLASS [place] Angy 06/30 Released w/o Limitations PERE[facility]) [facility]ERE[facility] Berrios([facility]) OUTPATIENT [id number] right knee pain for 5 days DEJA GARCIA R 07/12 Released with Work/Duty Limitations [facility]) [facility]) OUTPATIENT [id number] l HIP BACK PAIN BRETT RIVAS 07/23 Released with Work/Duty Limitations [facility](Fami ly Practic e [facility]) [facility]ERE[facility]) OUTPATIENT [id number] L hip pain BANDAR JASMINE 08/12 Released with Work/Duty Limitations [facility](Fami ly Practic e Combine d) [facility]ERE[facility] Ber[facility]) OUTPATIENT [id number] broken nose DEJA GARCIA R 08/16 Released with Work/Duty Limitations [facility](Fami ly Practic e Combine d) [facility](Hear ing Conservat ion [facility]) OUTPATIENT [id number] in-proc essing/ pcs HALINA AIME A 09/20 Released w/o Limitations [facility](He aring Conserv ation [facility]) [facility] OUTPATIENT [id number] Inproce ROM Corcoran 09/21 Released w/o Limitations [facility]) [facility]) OUTPATIENT [id number] GERALD Galeano 10/13 Released with Work/Duty Limitations [facility]) [facility](Immi gration Phys Exam) OUTPATIENT [id number] possibl e sinus infecti on ST CHETNA, CHETNA MIKALA 11/03 Released w/o Limitations [facility](Im migrati on Phys Exam) [facility](Immi gration Phys Exam) OUTPATIENT [id number] back pain/wr ist pain possibl e referra l ST CHETNA CHETNA MIKALA 11/16 Released with Work/Duty Limitations [facility](Im migrati on Phys Exam) [facility](Occu pational Therapy) OUTPATIENT [id number] joint pain, localiz ed in the wrist CLARY NDIAYE 12/07 Released w/o Limitations [facility](Oc cupatio nal Therapy ) [facility](Immi gration Phys Exam) OUTPATIENT [id number] crack on left foot CHETNA BASILIO MIKALA 12/24 Released w/o Limitations [facility](Im migrati on Phys Exam) [facility](Immi gration Phys Exam) OUTPATIENT [id number] asthma evaluat ion GERALD FLORES 03/16 Released w/o Limitations [facility](Im migrati on Phys Exam) [facility](Immi gration Phys Exam) OUTPATIENT [id number] back pain GERALD FLORES 06/01 Released with Work/Duty Limitations [facility](Im migrati on Phys Exam) [facility](Immi gration Phys Exam) OUTPATIENT [id number] follow up GERALD FLORES 06/28 Released with Work/Duty Limitations [facility](Im migrati on Phys Exam) [facility](Phys ical Therapy Tran) OUTPATIENT [id number] VICTOR HUGO RODRIGUEZ 06/29 Released with Work/Duty Limitations [facility](Ph ysical Therapy Tran ) [facility](Phys ical Therapy Tran) OUTPATIENT [id number] JEMMA MARTINS III 07/06 Released w/o Limitations [facility](Ph ysical Therapy Tran ) [facility](Immi gration Phys Exam) OUTPATIENT [id number] CANDACE Kaur 07/12 Released w/o Limitations [facility](Im migrati on Phys Exam) [facility](Phys ical Therapy Tran) OUTPATIENT [id number] JEMMA MARTINS III 07/13 Released w/o Limitations [facility](Ph ysical Therapy Tran ) [facility](Phys ical Therapy Tran) OUTPATIENT [id number] JEMMA MARTINS III 07/15 Released w/o Limitations [facility](Ph ysical Therapy Tran ) [facility](Immi gration Phys Exam) TELE CONSULT [id number] lab result SCOOBYCANDACE FLORES CHETNA 07/15 [facility](Im migrati on Phys Exam) [facility](Epid emiology) TELE CONSULT [id number] CT (+) JAMEL DE LA O 07/19 [facility](Ep idemiol ogy) [facility](Epid emiology) OUTPATIENT [id number] ACUTE/P T JAMEL DE LA O 07/25 Released w/o Limitations [facility](Ep idemiol ogy) [facility](Immi gration Phys Exam) OUTPATIENT [id number] lower back/po ssible ortho referra l EGRALD FLORES 08/10 Released with Work/Duty Limitations [facility](Im migrati on Phys Exam) [facility](Phys ical Medicine [place]) OUTPATIENT [id number] 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 DEMETRIUS LAWTON 09/02 Released w/o Limitations [facility](Ph ysical Medicin e [place]) [facility](Immi gration Phys Exam) OUTPATIENT [id number] F/U MRI GERALD FLORES 09/20 Released with Work/Duty Limitations [facility](Im migrati on Phys Exam) [facility](Immi gration Phys Exam) OUTPATIENT [id number] back pain CHAVO, MARIAM L 10/31 Released w/o Limitations [facility](Im migrati on Phys Exam) [facility](Orth opedics Spine) OUTPATIENT [id number] 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, first spine per referra l MIGNON DENISE 11/15 Released with Work/Duty Limitations [facility](Or thopedi cs Spine) [facility](Eduardo ology/Hea ring Conservat ion) OUTPATIENT [id number] Periodi STEVAN Durán 11/18 Released w/o Limitations [facility](Au diology /Hearin g Conserv ation) [facility](Phys ical Therapy) OUTPATIENT [id number] MEB ROM for L/S Spine MAYA BECKMAN KEVIN 11/21 Released w/o Limitations [facility](Ph ysical Therapy ) [facility](Opto metry [facility]) OUTPATIENT [id number] med physica RASHAD Mcleod 11/21 Released w/o Limitations [facility](Op tometry [facility]) [facility](Immi gration Phys Exam) OUTPATIENT [id number] phase II pe (meb) ADRIÁN KHAN 11/25 Released w/o Limitations [facility](Im migrati on Phys Exam) [facility](Immi gration Phys Exam) OUTPATIENT [id number] deviate d nasal septum CANDACE CORDOVA 12/16 Released w/o Limitations [facility](Im migrati on Phys Exam) [facility](Immi gration Phys Exam) OUTPATIENT [id number] knee pain (deplet ed reflexe s) BANDAR FREED 01/19 Released w/o Limitations [facility](Im migrati on Phys Exam) [facility](Immi gration Phys Exam) OUTPATIENT [id number] referra l for sleep study SHANNAN LOPEZ 01/20 Released w/o Limitations [facility](Im migrati on Phys Exam) [facility] LUKAS Diaz(Radio/Tv Technician al Medicine) TELE CONSULT [id number] Per TDRL require SONIA Bryan 03/15 [facility] [place] LUKAS Diaz(Inte rnal Medicin e) [facility] [place] OUTPATIENT [id number] TDRL SONIA SAEZ 04/10 Released w/o Limitations [place] [place] [place] OUT[place] [id number] ROM FOR TDRL ROM ARIZMENDI 04/10 Released w/o Limitations [place] [place] [facility] PSYCH DIAGNOSTIC EVALUATION [id number] Diagnos is: ICD-10- CM F32.A Depress ion, unspeci fied
MATA GROSS 07/03 [facility] Outpatient Encounter [id number] VANNESAADELA Mesha 07/03 [facility] Outpatient Encounter [id number] 07/03 [facility] BREATHING CAPACITY TEST 28618-7.61 [id number] Diagnos is: ICD-10- CM R06.00 Dyspnea , unspeci fied
CHETNA ARNDT E 07/03 [facility] PRO PHONE CALL 5-10 MIN [id number] [id number] Diagnos is: ICD-10- CM Z13.89 Encount er for screeni ng for other disorde r
MAIN,RENO NNE K 07/09 [facility] PSYCH DIAGNOSTIC EVALUATION [id number] [id number] Diagnos is: ICD-10- CM F90.0 Attn-de fct hyperac tivity disorde r, predom inatten tive type
MATA GROSS 07/10 [facility] OFFICE O/P EST MOD 30-39 MIN 32792-6.61 [id number] Diagnos is: ICD-10- CM J34.2 Deviate d nasal septum< br/> ALBERTO ESTRADA 07/12 [facility] IS [facility] PSYTX W PT 60 MINUTES 57837-6.61 [id number] Diagnos is: ICD-10- CM F33.41 Major depress vidal disorde r, recurre nt, in partial remissi on
MIRANDAJAKE A 07/17 [facility] OFFICE O/P EST LOW 20-29 MIN 12376-6.61 [id number] Diagnos is: ICD-10- CM R53.82 Chronic fatigue , unspeci fied
SISSY LEDEZMA B 07/18 [facility] PRO PHONE CALL 11-20 MIN [id number] Diagnos is: ICD-10- CM I10 Essenti al (primar y) hyperte nsion<b r/> BINA BAUMANN 07/19 [facility] SELF CARE MNGMENT TRAINING [id number] Diagnos is: ICD-10- CM M79.671 Pain in right foot
SANTANA STEELE 08/07 [facility] Outpatient Encounter [id number] 08/08 [facility] HC PRO PHONE CALL 5-10 MIN [id number] Diagnos is: ICD-10- CM Z13.89 Encount er for screeni ng for other disorde r
MAIN,RENO NNE K 08/20 [facility] Outpatient Encounter [id number] 08/20 [facility] OFFICE O/P EST HI 40-54 MIN [id number] [id number] Diagnos is: ICD-10- CM R53.82 Chronic fatigue , unspeci fied
LEOPOLDO GUERRERO L 09/03 [facility] [place] [facility] Outpatient Encounter [id number] 09/04 [facility] [place] [facility] NEUROMUSCU LAR REEDUCATIO N [id number] Diagnos is: ICD-10- CM M25.552 Pain in left hip<br/ > SANTANA STEELE L 09/04 [place] [facility]P NEW LOW 30-44 MIN [id number] Diagnos is: ICD-10- CM H52.03 Hyperme tropiarobert al
YUAN DAVIS M 09[facility]18 [facility] [place] [facility] Outpatient Encounter [id number] 09/27 [facility] OFFICE O/P NEW MOD 45-59 MIN [id number] Diagnos is: ICD-10- CM K58.2 Mixed irritab le bowel syndrom e
Sherine HOLM R 09/27 [facility] [place] [facility] Outpatient Encounter [id number] 10/08 [facility] PSYCH DIAG EVAL W/MED SRVCS [id number] Diagnos is: ICD-10- CM F41.9 Anxiety disorde r, unspeci fied
YUHAAVIATAM,AB IGAIL E 10/09 [place] [facility] [place] [facility] Outpatient Encounter [id number] 10/14 [place] [facility] [place] [facility] Outpatient Encounter [id number] 10/15 [place] [facility] SELF CARE MNGMENT TRAINING [id number] Diagnos is: ICD-10- CM M25.552 Pain in left hip<br/ > SANTANA STEELE L 10/16 [place] [facility] [place] [facility] OFFICE O/P EST MOD 30-39 MIN [id number] Diagnos is: ICD-10- CM R09.81 Nasal congest ion<br/ > ALBERTO ESTRADA 10/16 [place] [facility] Outpatient Encounter [id number] 10/16 [place] [facility] OFFICE O/P EST LOW 20-29 MIN [id number] Diagnos is: ICD-10- CM L70.8 Other acne
LEOPOLDO GUERRERO 10/25 [facility] Outpatient Encounter [id number] 10/28 [facility] Outpatient Encounter [id number] 11/13 [facility] Outpatient Encounter [id number] 11/18 [facility] MANUAL THERAPY 1/> [facility] [id number] Diagnos is: ICD-10- CM M25.552 Pain in left hip<br/ > SANTANA STEELE L 11/20 [facility] OFFICE O/P EST HI 40-54 MIN [id number] Diagnos is: ICD-10- CM F41.9 Anxiety disorde r, unspeci fied
YUHAAVIATAM,AB IGAIL E 11/28 [facility] Outpatient Encounter [id number] SHAHANA NGUYEN 12/09 [facility] Outpatient Encounter [id number] 12/11 [facility] OFFICE O/P EST LOW 20-29 MIN [id number] Diagnos is: ICD-10- CM R09.81 Nasal congest ion<br/ > JESSE BRUCE 12/13 [place] [facility] [place] [facility] Outpatient Encounter [id number] 12/17 [facility] [place] [facility] MANUAL THERAPY 1/> [place] [id number] Diagnos is: ICD-10- CM M25.552 Pain in left hip<br/ > SANTANA STEELE 12/24 [facility] [place] [facility] Outpatient Encounter [id number] 12/26 [facility] [place] [facility] Outpatient Encounter [id number] 12/26 [facility] [place] [facility] OFFICE O/P EST MOD 30-39 MIN [id number] Diagnos is: ICD-10- CM E66.01 Morbid (severe ) obesity due to excess calorie s
LEOPOLDO GUERRERO 12/31 [facility] [place] [facility] Outpatient Encounter [id number] 01/01 [facility] [place] [facility] Outpatient Encounter [id number] 01/16 [facility] [place] [facility] OFFICE O/P EST HI 40-54 MIN [id number] Diagnos is: ICD-10- CM F41.9 Anxiety disorde r, unspeci fied
YUHAAVIATAM,AB IGAIL E 01/16 [facility] [place] [facility] Outpatient Encounter [id number] 01/30 [facility] [place] [facility] Outpatient Encounter [id number] 02/04 [place] [facility] OFFICE O/P EST LOW 20-29 MIN [id number] Diagnos is: ICD-10- CM F90.0 Attn-de fct hyperac tivity disorde r, predom inatten tive type
HEATHERLAURI OSEAS BrooksKajal A 02/12 [facility] [place] [facility] Outpatient Encounter [id number] 03/19 [place] [facility] [place] [facility] Outpatient Encounter [id number] 03/20 [place] [facility] [place] [facility] Outpatient Encounter [id number] 04/03 [place] [facility] [place] [facility] Outpatient Encounter [id number] 04/04 [place] [facility] [place] [facility] Outpatient Encounter [id number] SA RA Nata BRITT 04/07 [place] [facility] [place] [facility] Outpatient Encounter [id number] 04/08 [place] [facility] [place] [facility] Outpatient Encounter [id number] AMBER GANNON A 04/08 [place] [facility] [place] [facility] Outpatient Encounter [id number] 04/22 [place] [facility] [place] [facility] Outpatient Encounter [id number] 04/23 [place] [facility] [place] [facility] Outpatient Encounter [id number] 04/30 [place] [facility] [place] [facility] Outpatient Encounter [id number] 05/07 [place] [facility] [place] [facility] Outpatient Encounter [id number] 05/28 [place] [facility] [place] [facility] Outpatient Encounter [id number] 05/29 [place] [facility] [place] [facility] OFF/OP CNSLTJ NEW/EST MOD 40 [id number] Diagnos is: ICD-10- CM M54.50 Low back pain, unspeci fied
AUSTIN ISABEL 06/02 [facility] [place] [facility] QNHP OL DIG ASSMT&MGMT 11-20 [id number] Diagnos is: ICD-10- CM E66.01 Morbid (severe ) obesity due to excess calorie s
MARIA LUZ GATES 06/03 [facility] [place] [facility] Outpatient Encounter [id number] GOGO TAVERAS 06/04 [place] [facility] [place] [facility] Outpatient Encounter [id number] 06/09 [facility] [place] [facility] Outpatient Encounter [id number] 06/10 [place] [facility] [place] [facility] Outpatient Encounter [id number] 06/23 [facility] OFFICE O/P EST MOD 30 MIN [id number] Diagnos is: ICD-10- CM J34.2 Deviate d nasal septum< br/> HAMLAR,VAL ID 06/25 [place] [facility] [place] [facility] Outpatient Encounter [id number] 06/29 [place] [facility] [place] [facility] Outpatient Encounter [id number] 07/17 [place] [facility] [place] [facility] Outpatient Encounter [id number] 07/20 [place] [facility] [place] [facility] Outpatient Encounter [id number] SA RA Nata BRITT 07/20 [place] [facility] [place] [facility] Outpatient Encounter [id number] 07/21 [place] [facility] [place] [facility] Outpatient Encounter [id number] 07/21 [place] [facility] [place] [facility] HC PRO PHONE CALL 11-20 MIN [id number] Diagnos is: ICD-10- CM O09.521 Supervi ozzie of elderly multigr avida, first trimest er
SOLOMON, STEVE K 07/21 [place] [facility] [place] [facility] Outpatient Encounter [id number] 07/21 [place] [facility] [place] [facility] Outpatient Encounter [id number] Kajal MCDONALD 07/22 [place] [facility] [place] [facility] Outpatient Encounter [id number] 07/22 [place] [facility] [place] [facility] Outpatient Encounter [id number] 08/07 [place] [facility] [place] [facility] Outpatient Encounter [id number] 08/11 [place] [facility] [place] [facility] HC PRO PHONE CALL 5-10 MIN [id number] Diagnos is: ICD-10- CM O09.521 Supervi ozzie of elderly multigr avida, first trimest er
SOLOMON, STEVE K 09/04 [place] [facility] [place] [facility] HC PRO PHONE CALL 5-10 MIN [id number] Diagnos is: ICD-10- CM O09.521 Supervi ozzie of elderly multigr avida, first trimest er
SOLOMON, STEVE K 09/07 [place] [facility] [place] [facility] Outpatient Encounter [id number] 09/23 [place] [facility] [place] [facility] Outpatient Encounter [id number] 09/23 [facility] HC PRO PHONE CALL 5-10 MIN [id number] Diagnos is: ICD-10- CM O09.522 Supervi ozzie of elderly multigr avida, second trimest er
STEVE SOLOMON 10/28 [facility] Outpatient Encounter [id number] 10/29 [facility] Procedures Combined list of: 1) Procedures from Department of Veterans Affairs facilities going back up to thelast 18 months, not all [place] non-surgical procedures are included; 2) All procedures from the Department of Defense facilities. Procedure Procedure Type Code Date Perfomer Comments Sourc e RANGE OF MOTION MEASUREMENTS AND REPORT (SEPARATE PROCEDURE); EACH EXTREMITY (EXCLUDING HAND) OR EACH TRUNK SECTION (SPINE) 2 [facility] HEPATITIS A VACCINE (HEPA), ADULT DOSAGE, FOR INTRAMUSCULAR USE 8 [facility] SKIN TEST; TUBERCULOSIS, INTRADERMAL 8 [facility] PHYS/OTH QUALIFIED HEALTH CORPORATE CONTROLLER QUALIFIED,EDUCATION, TRAIN,LICENSURE/REGU LATION (WHEN APPLICABLE) EDUC SER RENDERED TO PATS IN A GRP SETTING (EG,,OBESITY ,OR DIABETIC INSTRUCT) 8 [facility] EDUCATIONAL SUPPLIES, SUCH BOOKS, TAPES, AND PAMPHLETS, FOR THE PATIENT'S EDUCATION AT COST TO PHYSICIAN OR OTHER QUALIFIED HEALTH CORPORATE CONTROLLER 8 [facility] ANTHRAX VACCINE, FOR SUBCUTANEOUS OR INTRAMUSCULAR USE 9 [facility] COLLECTION OF VENOUS BLOOD BY VENIPUNCTURE 9 [facility] INDIVIDUAL PSYCHOTHERAPY, INSIGHT ORIENTED, BEHAVIOR MODIFYING AND/OR SUPPORTIVE, IN AN OFFICE OR OUTPATIENT FACILITY, APPROXIMATELY 20 TO 30 MINUTES [id number] WITH THE PATIENT 9 [facility] RANGE OF MOTION MEASUREMENTS AND REPORT (SEPARATE PROCEDURE); EACH EXTREMITY (EXCLUDING HAND) OR EACH TRUNK SECTION (SPINE) 9 [facility] SKIN TEST; TUBERCULOSIS, INTRADERMAL 9 [facility] COLLECTION OF VENOUS BLOOD BY VENIPUNCTURE 9 [facility] PSYCHIATRIC DIAGNOSTIC INTERVIEW EXAMINATION 9 [facility] AUDIOMETRIC TESTING OF GROUPS 9 [facility] APPLICATION OF A MODALITY TO 1 OR MORE AREAS; HOT OR COLD PACKS 9 [facility] APPLICATION OF A MODALITY TO 1 OR MORE AREAS; HOT OR COLD PACKS 9 [facility] SCREENING PAPANICOLAOU SMEAR; OBTAINING, PREPARING AND CONVEYANCE OF CERVICAL OR VAGINAL SMEAR TO LABORATORY 9 [facility] INDIVIDUAL PSYCHOTHERAPY, INSIGHT ORIENTED, BEHAVIOR MODIFYING AND/OR SUPPORTIVE, IN AN OFFICE OR OUTPATIENT FACILITY, APPROXIMATELY 45 TO 50 MINUTES [id number] WITH THE PATIENT 9 [facility] THERAPEUTIC PROCEDURE, 1 OR MORE AREAS, EACH 15 MINUTES; THERAPEUTIC EXERCISES TO DEVELOP STRENGTH AND ENDURANCE, RANGE OF MOTION AND FLEXIBILITY 9 [facility] SELF-CARE/HOME MANAGMENT TRAIN (EG,ACT OF DAILY LIVING (ADL) &COMPENSAT TRAIN,MEAL PREPARATION,SAFETY PROCS,AND INSTRUCT IN USE OF ASST TECHNOLOGY DEV/ADPT EQUIP) DIR ONE-ON-ONE CONT,EA 15 MINUTES 9 [facility] PSYCHIATRIC DIAGNOSTIC INTERVIEW EXAMINATION 9 [facility] INJECTION, PENICILLIN G BENZATHINE, UP TO 2,400,000 UNITS 8 [facility] THERAPEUTIC PROCEDURE, 1 OR MORE AREAS, EACH 15 MINUTES; THERAPEUTIC EXERCISES TO DEVELOP STRENGTH AND ENDURANCE, RANGE OF MOTION AND FLEXIBILITY 8 [facility] HEPATITIS A VACCINE (HEPA), ADULT DOSAGE, FOR INTRAMUSCULAR USE 8 [facility] AUDIOMETRIC TESTING OF GROUPS 8 [facility] Range Of Motion Evaluation Of Extremity Range Of Motion Evaluation Of Extremity 49411 2 ROM SALAZAR [facility] Psychotherapy Individual Approximately 30 Minutes Psychotherapy Individual Approximately 30 Minutes 67886 9 MANSOOR TOLBERT DoD Range Of Motion Evaluation Of Extremity Range Of Motion Evaluation Of Extremity 23235 9 MAYA BECKMAN [facility] Audiometry Group Testing Audiometry Group Testing 63353 9 STEVAN TAYLOR [facility] Modalities Heat Hot Packs Modalities Heat Hot Packs 79857 9 JEMMA MARTINS III DoD Physical Medicine - Group Physical Therapy Se ion Physical Medicine - Group Physical Therapy Session 50426 9 JEMMA MARTINS III [facility] Modalities Heat Hot Packs Modalities Heat Hot Packs 90540 9 [facility] Physical Medicine - Group Physical Therapy Se ion Physical Medicine - Group Physical Therapy Session 18042 9 [facility] Screening papanicolaou smear; obtaining, preparing and conveyance of cervical or vaginal smear to laboratory 9 CANDACE CORDOVA [facility] Clinical Social Work Individual Outpatient Counseling 45 Minutes Clinical Social Work Individual Outpatient Counseling 45 Minutes 49374 9 CASSIDY MONTES [facility] Physical Therapy: ___ Se ion Segments, 15 Minutes Each Physical Therapy: ___ Session Segments, 15 Minutes Each 19450 9 [facility] Modalities Heat Hot Packs Modalities Heat Hot Packs 42328 9 [facility] Physical Medicine - Group Physical Therapy Se ion Physical Medicine - Group Physical Therapy Session 06558 9 [facility] Patient Counseling Medical Management Individual Patient Patient Counseling Medical Management Individual Patient 37275 9 GERALD FLORES [facility] A e /Interv Discharge Meds Reconciled W/ Current Meds List 9 GERALD FLORES [facility] Physical Therapy Service Evaluation Physical Therapy Service Evaluation 26569 9 VICTOR HUGO LAWRENCE [facility] Phys Therapy Education Self Care Training - Per 15 Minutes Phys Therapy Education Self Care Training - Per 15 Minutes 17374 9 VICTOR HUGO LAWRENCE [facility] Psychiatric Diagnostic Evaluation Comprehensive Examination Psychiatric Diagnostic Evaluation Comprehensive Examination 12112 9 CASSIDY MONTES [facility] Patient Training And Self-Care Skills Patient Training And Self-Care Skills 22837 9 GERALD FLORES [facility] Patient Counseling Medical Management Individual Patient Patient Counseling Medical Management Individual Patient 68527 9 GERALD FLORES [facility] A e /Interv Discharge Meds Reconciled W/ Current Meds List 9 GERALD FLORES [facility] Patient Counseling Medical Management Individual Patient Patient Counseling Medical Management Individual Patient 94703 8 GERALD FLORES A e /Interv Discharge Meds Reconciled W/ Current Meds List 8 GERALD FLORES [facility] A isted Exercises For ROM Assisted Exercises For ROM 90994 8 CLARY NDIAYE [facility] Occupational Therapy Evaluation Occupational Therapy Evaluation 20511 8 CLARY NDIAYE [facility] Oropharynx Culture Streptococcus Group A Beta Hemolytic Oropharynx Culture Streptococcus Group A Beta Hemolytic 93050 8 GERALD FLORES [facility] Physician Supervised Injection Intramuscular Antibiotic Physician Supervised Injection Intramuscular Antibiotic 30040 8 GERALD FLORES [facility] Audiometry Group Testing Audiometry Group Testing 28881 8 AIME MEADE [facility] Physician Supervised Services Provision Of Educational Supplies Physician Supervised Services Provision Of Educational Supplies 23397 8 LOS HART [facility] Threshold Audiogram (Pure Tone) Threshold Audiogram (Pure Tone) 48395 8 LESLY CHRISTENSEN [facility] Audiometry Group Testing Audiometry Group Testing 02108 8 LESLY CHRISTENSEN [facility] Special Physician Services Analysis Of Computerized Data Special Physician Services Analysis Of Computerized Data 83068 8 LESLY CHRISTENSEN [facility] Physician Supervised Services Provision Of Special Supplies Physician Supervised Services Provision Of Special Supplies 99174 8 LESLY CHRISTENSEN [facility] Physician Supervised Group Educational Services 8 LESLY CHRISTENSEN Ear mold/insert, not disposable, any type 8 LESLY CHRISTENSEN [facility] Ear Protector Attenuation Measurements Ear Protector Attenuation Measurements 60290 8 LESLY CHRISTENSEN Skin Test Anergy Tuberculin Intradermal Skin Test Anergy Tuberculin Intradermal 59368 8 JOANNE TABARES [facility] Hepatitis A Vaccine Adult Dosage (Intramuscular Use) Hepatitis A Vaccine Adult Dosage (Intramuscular Use) 57232 8 VELOZGUSTAVO [facility] Vaccines Viral Polio, Inactivated Vaccines Viral Polio, Inactivated 11793 8 VELOZGUSTAVO [facility] Meningococcal Polysaccharide Vaccine Meningococcal Polysaccharide Vaccine 22357 8 VELOZGUSTAVO [facility] Immunization Administration By Injection, Each Additional Vaccine 8 FLIPPIN GUSTAVO D [facility] Td Vaccine Td Vaccine 58245 8 GUSTAVO VELOZ [facility] Immunization Administration By Injection, One Vaccine Immunization Administration By Injection, One Vaccine 77220 8 GUSTAVO VELOZ [facility] Social History Combined list of available smoking, tobacco, and other social history from Department of Defense and 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 Social History Type Response Date Comment Sourc e Tobacco smoking status NHIS VA-TOBACCO FORMER USER 07/22/2023 [facility] TE[facility] History of tobacco use VA-TOBACCO QUIT 1 TO < 5 YRS 07/22/2023 [facility] History of tobacco use VA-TOBACCO FORMER USER 06/06/2022 [facility] History of tobacco use PREVIOUS SMOKER 11/21/2021 [facility] History of tobacco use GA-TOBACCO FORMER USER 09/06/2021 [facility] History of tobacco use VA-TOBACCO USER E VERY DAY 11/03/2020 [facility] History of tobacco use VA-TOBACCO USE WI 30 MIN OF WAKEUP 05/06/2018 [facility] This section is an empty social history section. [facility] Plan of Care List of future care activities from Department of 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 Additional future care activities may be listed in the Assessment and Plan section. Date/Time Care Activity Care Activity Detail Maguii ty 04/13/2024 AMBULATORY - NONE [facility]
--- OUTSIDE RECORDS SUMMARY | 2023-12-24 15:00 | XMS_ITS | Encounter Summary ---
Author Organization [facility] Address [address] [place] [id number] Care Team Providers Care Body Man Name Role Phone No Ref-Primary, Physician Primary [...] on filedocumented in this encounter Care Teams Body Man Relationship Specialty Start Date End Date No Ref-Primary, Physician PCP - General 10/20/23 documented as of this encounter
--- OUTSIDE RECORDS SUMMARY | 2023-12-24 15:00 | XMS_ITS | Referral Summary ---
Author Organization [facility] Address [address] [place] [address] Care Team Providers Care Health Insurance Specialist Name Role Phone No Ref-Primary, Physician Primary Care Provider Encounters Date Type Department Care Team Description 10/21/2023 Travel 10/21/2023 2:45 PM CDT Office Visit [facility] Medicine [facility] [address] [place] [address] Nicolette Alvarez Phillip Neil, MD Multigravida of advanced maternal age in second trimester (Primary Dx); Obesity affecting in second trimester, unspecified obesity type; Hypertension affecting in second trimester 10/21/2023 2:06 PM CDT - 10/21/2023 11:59 PM CDT Hospital Encounter [facility] Medicine [facility] [address] [place] [address] Nicolette Alvarez Phillip Neil, MD related condition, antepartum Discharge Disposition: Home or Self Care 10/14/2023 PRE VISIT [facility] Medicine [facility] [address] [place] [address] Stacie Archuleta RN Ultrasound (L2-AMA, BMI, Essential (primary) HTN) 09/30/2023 Transcribe Orders GENERIC EXTERNAL DATA DEPARTMENT Provider, Generic External Data Supervision of elderly multigravida, first trimester (Primary Dx) 09/30/2023 Transcribe Orders GENERIC EXTERNAL DATA DEPARTMENT Provider, Generic External Data Supervision of elderly multigravida, first trimester (Primary Dx) 09/30/2023 Transcribe Orders [facility] [place] [address] [facility] [address] [place] [phone] Lesterjune related condition, antepartum (Primary Dx) 09/29/2023 Medical Correspondence [facility] [address] [place] [address] Scan, Non-Provider 09/24/2023 Medical Correspondence [facility] [address] [facility] [place] [address] Scan, Non-Provider from [...] Procedure Name Priority Date/Time Associated Diagnosis Comments [facility] COMPREHENSIVE SINGLE Routine 10/21/2023 3:30 PM CDT related condition, antepartum from Last 3 Months Results * [facility] Comprehensive Single (10/21/2023 3:30 PM CDT) Anatomical [...] ? Study Date: ??10/21/2023 2:11pm Pat. NO: ??[id number] ?Referring ??MD: JUNE ANTONIO Site: ? Lead Supply Worker: Josep Rodriguez RDMS : ??1990 ?Age: ?? [...] 10 ? oz EFW by ? Hadlock ([id number]-FL) Head / Face / Neck Biometry: Assistant Production Manager ?5.8 ? mm CM ? 3.2 ? [...] view. RVOT view. LVOT view. 3-vessel view. 7-blhaxu-qamjbjh view. Situs. Aortic arch view. Bicaval view. [...] JACKSON Study Date: 10/21/2023 2:11pm Pat. NO: [id number] Referring MD: NICOLETTE ALVAREZ Site: Lead Supply Worker: Josep Rodriguez RDMS : 1990 Age: 33 [...] EFW (lb,oz) 0 lb 10oz EFW by Johnathonlock([id number]-FL) Head / Face / Neck Biometry: Assistant Production Manager 5.8mm CM 3.2mm Nasal bone 5.5mm ANATOMY ----- The following structures appear normal: Head / Neck Cranium. Head size. Head shape.Lateral ventricles. Choroid plexus. Midline falx. Cavum septi pellucidi.Cerebellum. Cisterna magna. Parenchyma. Thalami. Vermis. Neck. Nuchal fold. Face Lips. Profile. Nose. Maxilla.Mandible. Orbits. Lens. Heart / Thorax 4-chamber view. RVOT view. LVOT view.3-vessel view. 5-vizqde-hmfvtwt view. Situs. Aortic arch view. Bicavalview. Ductal [...] and closed. 6. Low lying placenta. June [facility] US ORDERABLE S from Last 3 Months Care Teams Health Insurance Specialist Relationship Specialty Start Date End Date No Ref-Primary, Physician PCP - General 10/20/23
--- OUTSIDE RECORDS SUMMARY | 2023-12-24 15:00 | XMS_ITS | Encounter Summary ---
Author Organization [facility] Address [address] [place] [address] Care Team Providers Care Recreation Program Specialist Name Role Phone No Ref-Primary, Physician Primary Care Provider Reason for Visit * Reason Comments Ultrasound L2-AMA, BMI, HTN Encounter Details Date Type Department Care Team (Late st Contact Info) Description 10/21/2023 2:45 PM CDT Office Visit [facility] [place] [address] [place] [address] Zeinab [facility] [address] [facility] [place], [place] [id number] Derek Bautista MD [address] [place] [address] Multigravida of advanced maternal age [...] for details of today's US at the [facility]. Derek Bautista MD Maternal- Medicine documented in this encounter Nursing Notes * Stacie Archuleta, RN - 10/21/2023 2:45 PM CDT Patient presents to [facility] for L2 at 19w3d due to AMA, BMI, HTN. Denies LOF, vaginal bleeding or cramping/contractions. SBAR given to [facility] MD, see their note in Epic. documented in this encounter Plan of Treatment Not on file documented as of this encounter Visit Diagnoses Diagnosis Multigravida of advanced maternal age in second trimester- Primary Obesity affecting in second trimester, unspecified obesity type Hypertension affecting in second trimester documented in this encounter Care Teams Recreation Program Specialist Relationship Specialty Start Date End Date No Ref-Primary, Physician PCP - General 10/20/23 documented as of this encounter
--- OUTSIDE RECORDS SUMMARY | 2023-12-24 15:00 | XMS_ITS | Encounter Summary ---
Author Organization [facility] Address [address] [place] [address] Care Team Providers Care Folding Machine Operator Name Role Phone Unavailable Primary Care Provider Unavailabl e Reason for Referral * Diagnostic Imaging Ultrasound (Routine) - Pending Review Specialty Diagnoses / Procedures Referred By Jaci lagos Referred To Contact Radiology. Diagnoses related condition, antepartum Procedures [facility] US Comprehensive Single [address] [place] [address] Referral ID Status Reason Start Date Expiration Date V isits Requested Visits Authorized [id number] Pending Review 09/30/2023 09/29/2024 1 1 * Consultation (Routine: Next available opening) - Pending Review Specialty Diagnoses / Procedures Referred By Jaci lagos Referred To Contact Diagnoses related condition, antepartum [facility], [address] [place] [address] [facility] [address] [place] [address] Referral ID Status Reason Start Date Expiration Date V isits Requested Visits Authorized [id number] Pending Review 09/30/2023 09/29/2024 1 1 Question Answer Preferred Location: [facility] [place] 03/13/2024 Ultrasound Comprehensive US (>than 18 weeks GA) US PROC NONE MFM Issue OTHER (enter details in Comments) - AMA, BMI, essential (primary) hypertension. MFM MD Consultation (unrelated to Ultrasound findings): No Inflammatory Bowel Disease Clinic: Joint MFM and GI Consultation: No Chronic Kidney Disease: Joint MFM and Nephrology Consultation No Genetic Counseling Consultation: No fax [facility]; Zeinab, June; [phone] Comments There is no height or weight [...] (Latest Contact Info) Description 09/30/2023 Transcribe Orders [facility] [place] [address] [place] [address] ZeinabJune [address] [place] [address] related condition, antepartum (Primary Dx) [...] documented as of this encounter Results * [facility] US Comprehensive Single (10/21/2023 3:30 PM [...] 3:26 PM CDT ?Comprehensive ----- Pat. Name: GEURLINE BARRAGAN ? Study Date: ??10/21/2023 2:11pm Pat. NO: ??[id number] ?Referring ??MD: NICOLETTE ALVAREZ Site: ? Mailhouse Operator: Josep Rodriguez RDMS : ??1990 ?Age: ?? [...] 10 ? oz EFW by ? Hadlock ([id number]) Head / Face / Neck Biometry: Temp Recruiter ?5.8 ? mm CM ? 3.2 ? [...] view. RVOT view. LVOT view. 3-vessel view. 9-qrdoud-ntqkusa view. Situs. Aortic arch view. Bicaval view. [...] BARRAGAN Study Date: 10/21/2023 2:11pm Pat. NO: [id number] Referring MD: NICOLETTE ALVAREZ Site: Mailhouse Operator: Josep Rodriguez RDMS : 1990 Age: 33 [...] EFW (lb,oz) 0 lb 10oz EFW by Marce([id number]) Head / Face / Neck Biometry: Temp Recruiter 5.8mm CM 3.2mm Nasal bone 5.5mm ANATOMY ----- The following structures appear normal: Head / Neck Cranium. Head size. Head shape.Lateral ventricles. Choroid plexus. Midline falx. Cavum septi pellucidi.Cerebellum. Cisterna magna. Parenchyma. Thalami. Vermis. Neck. Nuchal fold. Face Lips. Profile. Nose. Maxilla.Mandible. Orbits. Lens. Heart / Thorax 4-chamber view. RVOT view. LVOT view.3-vessel view. 6-evudyo-smthksw view. Situs. Aortic arch view. Bicavalview. Ductal [...] closed. 6. Low lying placenta. June [facility] documented in this encounter Visit Diagnoses Diagnosis related condition, antepartum- Primary related condition, antepartum documented in this encounter
--- OUTSIDE RECORDS SUMMARY | 2023-12-24 15:00 | XMS_ITS | Encounter Summary ---
Author Organization [facility] Address [address] [place] [address] Care Team Providers Care Center Mgr Name Role Phone Unavailable Primary Care Provider Unavailabl e Reason for Referral * Consultation (Routine) - Pending Review Specialty Diagnoses / Procedures Referred By Contac t Referred To Contact production line operator Diagnoses Supervision of elderly multigravida, first trimester Lonny Bui MD [facility] [place] [address] Referral ID Status Reason Start Date Expiration Date V isits Requested Visits Authorized [id number] Pending Review 09/30/2023 09/29/2024 1 1 Question Answer Is the patient being referred to Canoe Maker by a [facility] ([facility]) provider? Yes Reason for Referral: Scope of Care: Physician/M.D. Have orders been placed in [facility] (imaging, labs, etc.) that need to be completed prior to the patient's consult? No Scheduling Instructions: [facility] will call you to coordinate your care as prescribed by your provider. If you don't hear from a insurance sales representative within 2 business days, please call . Comments Referral Transcribed by external fax Provider: LONNY BUI affiliated with [facility] clinic. VA: Yes If yes was is the VA Authorization Number: [id number] Phone number: [phone] Fax number: [phone] [facility] will call you to coordinate your care as prescribed by your provider. If you don't hear from a insurance sales representative within 2 business days, please [...] Type Priority Associated Diagnoses Orde r Schedule Canoe Maker Transcribing Operator Head Referral Referral Routine Supervision of elderly multigravida, first trimester Expected: 09/30/2023 (Approximate), Expires: 09/29/2024 documented as of this encounter Visit Diagnoses Diagnosis Supervision of elderly multigravida, first trimester- Primary documented in this encounter
--- OUTSIDE RECORDS SUMMARY | 2023-12-24 15:00 | XMS_ITS | Encounter Summary ---
Author Organization [facility] Address [address] [place] [address] Care Team Providers Care Machine Feed Operator Name Role Phone Unavailable Primary Care Provider Unavailabl e Reason for Referral * Consultation (Routine: Next available opening) - Pending Review Specialty Diagnoses / Procedures Referred By Jaci lagos Referred To Contact drying tunnel operator Diagnoses Supervision of elderly multigravida, first trimester Jamia Reyes MD [facility] [place] [place] [address] Referral ID Status Reason Start Date Expiration Date V isits Requested Visits Authorized [id number] Pending Review 09/30/2023 09/29/2024 1 1 Question Answer Is the patient being referred to Dietary Manager by a [facility] ([place]) provider? Yes Reason for Referral: Have orders been placed in [facility] (imaging, labs, etc.) that need to be completed prior to the patient's consult? No Scheduling Instructions: [facility] will call you to coordinate your care as prescribed by your provider. If you don't hear from a client account representative within 2 business days, please call . Additional Information: Retranscribed per Nurse Navigator request, referred by Dr Jamia Reyes with [facility] for Supervision of elderly multigravida, first trimester Comments Retranscribed per Nurse Navigator request, referred by Dr Jamia Reyes with [facility] [place]: Yes If yes was is the VA Authorization Number: [id number] Phone number: [phone] Fax number: [phone] Please be aware that coverage of these services is subject to the terms and limitations of your health insurance plan. Call member services at your health plan with any benefit or coverage questions. [facility] will call you to coordinate your care as prescribed by your provider. If you don't hear from a client account representative within 2 business days, please call [...] Type Priority Associated Diagnoses Orde r Schedule Dietary Manager Folder Machine Referral Referral Routine: Next available opening Supervision of elderly multigravida, first trimester Ordered: 09/30/2023 documented as of this encounter Visit Diagnoses Diagnosis Supervision of elderly multigravida, first trimester- Primary documented in this encounter
--- OUTSIDE RECORDS SUMMARY | 2023-12-24 15:00 | XMS_ITS | Encounter Summary ---
Author Organization [facility] Address [address] [place] [address]. [place] [address] Care Team Providers Care Director Of Food And Nutrition Name Role Phone Unavailable Primary Care Provider Unavailabl e Encounter Details Date Type Department Care Team (Late st Contact Info) Description 09/24/2023 Medical Correspondence [facility] Info Mgmt [facility] [address] [place] [address] Scan, Non-Provider Social History Tobacco [...]
--- OUTSIDE RECORDS SUMMARY | 2023-12-24 15:00 | XMS_ITS | Clinical Summary ---
Author Organization [facility] Address [address] [place] [address] Care Team Providers Care Tour Bus Driver/Guide Name Role Phone Unavailable Primary Care Provider [...] for each transition of care or referral. [email or web address] Social History Tobacco Use Types Packs/Day Years [...] Tdap) 2007 HepB (1) 2007 COVID-19 Vaccine (2023-2 5 season) 2023 Influenza (#1) 2023 Zoster/Shingles (1 of 2) [...] this topic Kailey Jackson Personal/Family Self 1990 [id number] [place] [address] Kailey Jackson Workers Comp Self 1990 [address] [place] [address]
--- OUTSIDE RECORDS SUMMARY | 2023-12-24 15:00 | XMS_ITS | Encounter Summary ---
Author Organization [facility] Address [address] [place] [address] Care Team Providers Care Assembly Line Machine Operator Name Role Phone No Ref-Primary, Physician Primary Care Provider Reason for Referral * Diagnostic Imaging Ultrasound (Routine) - Pending Review Specialty Diagnoses / Procedures Referred By Jaci lagos Referred To Contact Radiology. Diagnoses related condition, antepartum Procedures [facility] US [facility], June [facility] [address] [place] [address] Referral ID Status Reason Start Date Expiration Date V isits Requested Visits Authorized [id number] Pending Review 09/30/2023 09/29/2024 1 1 Reason for Visit * Auth/Cert (Routine) Specialty Diagnoses / Procedures Referred By Jaci lagos Referred To Contact Radiology. [facility] Ultrasound [address] [facility] [address] [place] [address] Referral ID Status Reason Start Date Expiration Date Visits Re quested Visits Authorized [id number] 1 1 Encounter Details Date Type Department Care Team (Latest Contact Info) Description 10/21/2023 2:06 PM CDT - 10/21/2023 11:59 PM CDT Hospital Encounter [facility] [place] [address] [place] [address] Andrerogelio Nicolette [facility] [address] [place] [address] Derek Bautista MD [address] [place] [address] [address] [place] [address] related condition, antepartum Discharge Disposition: Home or [...] Procedure Name Priority Date/Time Associated Diagnosis Comments [facility] US COMPREHENSIVE SINGLE Routine 10/21/2023 3:30 PM CDT related condition, antepartum documented in this encounter Results * [facility] US Comprehensive Single (10/21/2023 3:30 PM CDT) [...] ? Study Date: ??10/21/2023 2:11pm Pat. NO: ??[id number] ?Referring ??MD: JUNE [facility] Site: ? Wheel Lacer And Truer: Josep Rodriguez RDMS : ??1990 ?Age: ?? [...] 10 ? oz EFW by ? Hadlock ([id number]) Head / Face / Neck Biometry: Leather Etcher ?5.8 ? mm CM ? 3.2 ? [...] view. RVOT view. LVOT view. 3-vessel view. 0-gnesvz-nuxbxha view. Situs. Aortic arch view. Bicaval view. [...] JACKSON Study Date: 10/21/2023 2:11pm Pat. NO: [id number] Referring MD: NICOLETTE ALVAREZ Site: Wheel Lacer And Truer: Josep Rodriguez RDMS : 1990 Age: 33 [...] EFW (lb,oz) 0 lb 10oz EFW by Hadlock([id number]-FL) Head / Face / Neck Biometry: Leather Etcher 5.8mm CM 3.2mm Nasal bone 5.5mm ANATOMY ----- The following structures appear normal: Head / Neck Cranium. Head size. Head shape.Lateral ventricles. Choroid plexus. Midline falx. Cavum septi pellucidi.Cerebellum. Cisterna magna. Parenchyma. Thalami. Vermis. Neck. Nuchal fold. Face Lips. Profile. Nose. Maxilla.Mandible. Orbits. Lens. Heart / Thorax 4-chamber view. RVOT view. LVOT view.3-vessel view. 2-spwkqa-notfdgg view. Situs. Aortic arch view. Bicavalview. Ductal [...] 6. Low lying placenta. June Zeinab [facility] US ORDERABLE S documented in this encounter Visit Diagnoses Diagnosis related condition, antepartum documented in this encounter Care Teams Assembly Line Machine Operator Relationship Specialty Start Date End Date No Ref-Primary, Physician PCP - General 10/20/23 documented as of this encounter
--- OUTSIDE RECORDS SUMMARY | 2023-12-24 15:00 | XMS_ITS | Encounter Summary ---
Author Organization [facility] Address [address] [place] [address] Care Team Providers Care Yard Switcher Name Role Phone Unavailable Primary Care Provider Unavailabl e Reason for Visit * Reason Comments Ultrasound L2-AMA, BMI, Essenti al (primary) HTN Encounter Details Date Type Department Care Team (Late st Contact Info) Description 10/14/2023 PRE VISIT [facility] M[facility] Medicine [facility] [place] [address] [place] [address] Stacie Archuleta RN Ultrasound (L2-AMA, [...]
--- OUTSIDE RECORDS SUMMARY | 2023-12-24 15:00 | XMS_ITS | Encounter Summary ---
Author Organization [facility] Address [address] [place] [address]. [place] [address] Care Team Providers Care Combatant Diver Qualified Name Role Phone Unavailable Primary Care Provider Unavailabl e Encounter Details Date Type Department Care Team (Late st Contact Info) Description 09/29/2023 Medical Correspondence [facility] Info Mgmt [facility] [address] [place] [address] Scan, Non-Provider Social History Tobacco [...]
--- OUTSIDE RECORDS SUMMARY | 2023-12-24 15:00 | XMS_ITS | Clinical Summary ---
Author Organization [facility] [employer] Address [address] [place] [address] Care Team Providers Care Heavy Truck Technician Name Role Phone No Ref-Primary, Physician Primary Care Provider Encounters Date Type Department Care Team Description 10/21/2023 2:45 PM CDT Office Visit [facility] Medicine [place] [address] [facility] [place] [address] Nicolette Alvarez Phillip Neil, MD Multigravida of advanced maternal age in second trimester (Primary Dx); Obesity affecting in second trimester, unspecified obesity type; Hypertension affecting in second trimester 10/21/2023 2:06 PM CDT - 10/21/2023 11:59 PM CDT Hospital Encounter [facility] Medicine [facility] [address] [facility] [place] [address] Nicolette Alvarez Phillip Neil, MD related condition, antepartum Discharge Disposition: Home or Self Care 10/21/2023 Travel 10/14/2023 PRE VISIT [facility] Medicine [facility] [address] [facility] [address] [place] [address] Stacie Archuleta RN Ultrasound (L2-AMA, BMI, Essential (primary) HTN) 09/30/2023 Transcribe Orders GENERIC EXTERNAL DATA DEPARTMENT Provider, Generic External Data Supervision of elderly multigravida, first trimester (Primary Dx) 09/30/2023 Transcribe Orders GENERIC EXTERNAL DATA DEPARTMENT Provider, Generic External Data Supervision of elderly multigravida, first trimester (Primary Dx) 09/30/2023 Transcribe Orders [facility] [place] [address] [place] [address] AntonioJune related condition, antepartum (Primary Dx) 09/29/2023 Medical Correspondence [facility] Info Mgmt Sr[facility] [address] [place] [address] Scan, Non-Provider 09/24/2023 Medical Correspondence [facility] Info [facility] [address] [place] [address] Scan, Non-Provider from [...] of 3 - 19+ 3-dose series) 2007 PHQ-2 (once per calendar year) 2023 MATERNAL SCREENING DISCUSSION 08/16/2023 OBGCT (OB) 11/22/2023 COVID-19 Vaccine ( season) 2023 INFLUENZA VACCINE (#1) 2023 3, 12/09/2011, 06/04/2011, Additional history exists RSV VACCINE (1 - Risk 1-dose series) 01/17/2024 YEARLY [...] Procedure Name Priority Date/Time Associated Diagnosis Comments [facility] COMPREHENSIVE SINGLE Routine 10/21/2023 3:30 PM CDT related condition, antepartum from Last 3 Months Results * [facility] US Comprehensive Single (10/21/2023 3:30 PM CDT) [...] ? Study Date: ??10/21/2023 2:11pm Pat. NO: ??[id number] ?Referring ??MD: JUNE ANTONIO Site: ? Project Systems Engineer: Josep Rodriguez [facility] : ??1990 ?Age: ?? 33 ----- INDICATION [...] lb 10 ? oz EFW by ? [facility] ([id number]) Head / Face / Neck Biometry: Field Account Director ?5.8 ? mm CM ? 3.2 ? [...] view. RVOT view. LVOT view. 3-vessel view. 9-tnbyez-xwlljdo view. Situs. Aortic arch view. Bicaval view. [...] be of further service, please contact the Maternal Medicine Center. anomalies may be present but not detected Procedure Note Derek Bautista MD - 10/21/2023 Comprehensive ----- Pat. Name: GUERLINE JACKSON Study Date: 10/21/2023 2:11pm Pat. NO: [id number] Referring MD: NICOLETTE ALVAREZ Site: Project Systems Engineer: Josep Rodriguez RDMS : 1990 Age: 33 [...] EFW (lb,oz) 0 lb 10oz EFW by Hadlock([id number]-FL) Head / Face / Neck Biometry: Field Account Director 5.8mm CM 3.2mm Nasal bone 5.5mm ANATOMY ----- The following structures appear normal: Head / Neck Cranium. Head size. Head shape.Lateral ventricles. Choroid plexus. Midline falx. Cavum septi pellucidi.Cerebellum. Cisterna magna. Parenchyma. Thalami. Vermis. Neck. Nuchal fold. Face Lips. Profile. Nose. Maxilla.Mandible. Orbits. Lens. Heart / Thorax 4-chamber view. RVOT view. LVOT view.3-vessel view. 3-adrgus-ktnulxf view. Situs. Aortic arch view. Bicavalview. Ductal [...] closed. 6. Low lying placenta. June Antonio [facility] US ORDERABLE S from Last 3 Months Care Teams Heavy Truck Technician Relationship Specialty Start Date End Date No Ref-Primary, Physician PCP - General 10/20/23
--- OUTSIDE RECORDS SUMMARY | 2023-12-24 15:01 | XMS_ITS | Encounter Summary ---
Author Organization [facility] Address [address] [place] [address] Care Team Providers Care Python Java Developer Name Role Phone Unavailable Primary Care Provider Unavailabl e Reason for Visit * Reason Onset Date Comments Results 09/02/2023 Panorama Prenata l Screen Encounter Details Date Type Department Care Team (Latest Contact Info) Description 09/02/2023 Clinical Communication Department of Obstetrics and Gynecology in [place], [place] [address] [place] [address] Loreta Ramirez, TREVOR, C.N.P. [address] [place] [address] Results (Panorama Screen ) Social History Tobacco Use Types Packs/Day Years Used Date Smoking Tobacco: Former Cigarettes 2 006 - 05/03/2021 Smokeless Tobacco: Never Comments:Started at age 15, quit in 2021 Alcohol Use Standard Drinks/Week Comments Not Currently 0 (1 standard drink = 0.6 oz pur e alcohol) [facility] Utilities Answer Date Recorded In [...]
--- OUTSIDE RECORDS SUMMARY | 2023-12-24 15:01 | XMS_ITS | Clinical Summary ---
Author Organization [employer] [facility] Address [place], [place] [address] Care Team Providers Care Financial Examiner Name Role Phone MastersonAbiola Primary Care Provider [phone] Allergies No known active allergies Medications Medication Sig Dispensed Refills Start Date End Date Status NIFEdipine ER (ADALAT CC) 30 mg extended-Release tablet Take 1 Tablet by mouth once daily. 07/19/2022 Active famotidine (PEPCID) 20 mg tabletIndications:Ga stroesophageal reflux disease, unspecified whether esophagitis present Take 1 Tablet (20 mg) by mouth two times daily. 60 Tablet 07/17/2023 Active Hybckqna-Tr-Yec-Fe-F A tab tabletIndications:Va ginal bleeding in Take [...] 06/05/2023 LGSIL of cervix of undetermined significance Overview (08/06/2023): 09/29/13 ASCUS/HPV negative 05/07/16 NIL 12/27/19 LSIL/HPV negative 05/29/23 ASCUS/HPV+, HPV 16/18 Negative Plan: Colposcopy (patient as of 08/06/23, provider advised to discuss with her [place]we HUMAN GEOGRAPHY INSTRUCTOR provider) Chronic fatigue 05/07/2016 Overview (09/09/2017): 09/09/2017: Cardiology evaluation. Benign palpitations. Vitamin D deficiency 10/30/2012 Overview (06/20/2017): VITAMIN D TOTAL Date Value Ref Range Status 06/19/2017 22.9 (L) 30.0 - 80.0 ng/mL Final 10/17/2015 30.1 30.0 - 80.0 ng/mL Final 10/29/2012 18.4 (L) 30.0 - 80.0 ng/mL Final 06/20/2017: [place] d 25786 IU twice weekly x8 weeks, vit d [...] 12/31/2011 02/11/2012 Chronic back pain 10/15/2011 12/31/2012 Overview (10/15/2011): Chronic low and mid back pain Supervision of other normal 07/02/2011 02/11/2012 Overview (12/16/2011): Baby-FP If boy- circ Bottle feeding. GBS - neg Guerline Jackson [[id number]] GEOVANY 12/30/2011 (05/02/11 to present) [facility] Date: 86 Age (as of 08/12/11): 21 Race/Ethnicity: Not /Not History: Estimated Date of Delivery: 12/30/11 Gestational Age: 20w0d Blood Type: O Rh Positive Patient Address Address Home Phone Email [address] [phone] [email or web address] [place] [address] Patient Background Race/Ethnicity Marital Status Not /Not Single Clinical/Financial PCP Payor/Plan Unknown, Doctor / PRIME Comments/Complications: OB Patient Education Checklist Date/ Initial HIV test counseled 06/04/2011 Habits 06/04/2011 Nutrition/Vitamins 06/04/2011 MD Activities 06/04/2011 Common Problems 06/04/2011 Genetic Referral 06/04/2011 Nuchal /1st trim.screen Declined 06/04/2011 Quad Screen Still considering 06/04/2011 Quickening 07/02/2011 MD Anatomy scan Labor Signs/Symptoms Set up [...] safety in , and recommended care. Reviewed [facility]'s Preparing for Class Schedule. 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 Progress Notes (Episode) 07/22/2011 GA: 17w0d Doing much better today. Was seen on 07/18 for abdominal tightening/cramping. Now is back to normal. Ultrasound was fine on Friday. Declines quad screen today. No movement yet. No bleeding. Feeling well otherwise PLAN: -- Follow up in 3 weeks -- 20 week ultrasound around that time. -- Bfbq-sd-bixb for chlamydia today Lary Aguilera MD .................... [...] Mother Lipids (1) Father Thyroid (1) Mother: Gravharshad's Anticipatory Guidance Topics First Trimester Second Trimester [...] 7. Baby's care provider (Please use notes), [facility] / Rooming in, Circumcision 8. Brochures [...] screen, but probably not -- Will need oxha-jl-zwps for chlamydia next month. 06/04/2011 10w1d First OB today, see progress note. aLry Aguilera MD .................... 06/04/2011 5:41 PM Chlamydia infection, current 06/07/2011 02/11/2012 Overview (06/07/2011): 06/04/2011 + chlamydia at 1st OB visit. Molluscum contagiosum 06/04/20112012 Major depression, single episode 04/13/2010 12/31/2012 Tobacco use disorder 11/17/2009 013 Overview (02/11/2012): 2-3 per day. During preg. 2012 chantix 01/2012 Degeneration of thoracic intervertebral disc 0 12/31/2012 Screening for lipoid disorders 12/31/2012 Overview (10/15/2011): 11/26/08 Total: 195 Triglyceride: 200 HDL: 43 LDL:112 Encounters Date Type Department Care Team Description 12/17/2023 Travel 11/27/2023 2:00 PM CDT Office Visit [facility] [address] [facility] [place] [address] Moe Mendez NP UTI (patient presents with burning upon urination and she states that it feels like she isn't fully emptying her bladder- symptoms began 1 week ago. patient is 25 weeks ) 11/27/2023 Travel 11/25/2023 4:05 PM CDT Office Visit [facility] [address] [facility] [place] [address] Monica Reyes PA Derm Problem (wart between rectum and vagina) 11/25/2023 Travel 11/11/2023 Nurse Triage [facility] [address] [facility] [place] [address] Abiola Masterson DO Results 10/30/2023 Telephone [facility] [address] [facility] [place] [address] Monica Reyes PA Follow Up 10/29/2023 2:00 PM CDT Office Visit [facility] [address] [facility] [place] [address] Monica Reyes PA Derm Problem (skin tag on inner upper right side) 10/29/2023 Travel 10/08/2023 4:00 PM CDT Office Visit [facility] [address] [facility] [place] [address] Abiola Masterson DO Breathing Problem (Breathing concerns for a little over two years since she stopped smoking. ) 10/08/2023 Travel 09/24/2023 Orders Only [facility] Scanner 1 scan: (1-Ord) CHERIE, RESULTS, 09/24/2023 from Last 3 Months Immunizations Name [...] al N Livin g 9 9 Chris Matute Delivery Location:[facility] Comments:Prolonged sec ond stage Current Last Filed Vital Signs Vital Sign Reading Time Taken Comments Blood Pressure 130/80 11/27/2023 2:08 PM CDT Pulse 102 11/27/2023 2:08 PM CDT Temperature 37.3 ??C (99.1 ??F) 11/27/2023 2:08 PM CD T Respiratory Rate 18 11/27/2023 2:08 PM CDT Oxygen Saturation 97% 11/27/2023 2:08 PM CDT Inhaled Oxygen Concentration - - Weight 139 kg (306 lb 8 oz) 11/27/2023 2:08 PM C DT Height 165.1 cm (5' 5) 07/16/2023 9:05 PM CDT Body Mass Index 51 07/16/2023 9:05 PM CDT Plan of Treatment Upcoming Encounters Date Type Department Care Team (Late st Contact Info) Description 04/14/2024 2:30 PM TAX SPECIALIST Telemedicine [facility] [address] [place] [address] Valencia Barraza PA [address] [place], [place] [id number] Health Maintenance Due Date Last Done Comments COVID-19 vaccine series ( season) 2023 Influenza for age 9-49 11/30/2023 3, 12/09/2011, 06/04/2011, Additional history exists Depression screening for age 12+ 04/18/2024 04/18/2023, 10/20/2019, 10/18/2019, Additional history exists BMI (ht and wt on same day) for age 18+ 05/28/2024 05/29/2023, 02/16/2023, 12/27/2019, Additional history exists Pap test for age 21-65 05/28/2026, 05/29/2023, 12/27/2019, Additional history exists Tetanus booster 09/11/2028 09/11/2018, 09/29, 04/13/2007 RSV vaccine for adults or (1 - 1-dose 60+ series) 2048 Tdap Completed 10/22/2011, 04/13/2007 HIV for age 15-65 Completed 12/27/2019, 05/02/2011 Hepatitis C screening for age 18-79 Completed 12/27/2019 Pneumococcal series for age 6-64 Aged Out No longer eligible based on patient's age to complete this topic Procedures Procedure Name Priority Date/Time Associated Diagnosis Comments URINE CULTURE Routine 11/27/2023 2:01 PM CDT Vaginal pain Urethritis, nonspecific UA W/ SEDIMENT EXAM REFLEXED PER CRITERIA Routine 11/27/2023 2:01 PM CDT Vaginal pain Urethritis, nonspecific SCAN-LABORATORY REPORT 09/24/2023 12:00 AM CDT GRAIN ELEVATOR SUPERINTENDENT THIN PREP PAP SCREEN IMAGED Routine 05/29/2023 3:02 PM TAX SPECIALIST Screening for malignant neoplasm of cervix ANTI HIV 1/2 Routine 12/27/2019 4:02 PM CDT Screening examination for venereal disease ANTI HCV Routine 12/27/2019 4:02 PM CDT Screening examination for venereal disease from Last 3 Months or Most Recently Relevant to Health Maintenance Results * URINE CULTURE (11/27/2023 2:01 PM CDT) CULTURE 10-50,000 CFU/mL of multiple organisms, probable contaminants 11/28/2023 5:41 PM CDT [facility] TRAL LABORATORY Urine URINE SPECIMEN / Unknown Non-Blood / Unknown 11/27/2023 2:01 PM CDT 11/27/2023 2:01 PM CDT Moe Block Araceliharshad EMILY MICROBIOLOGY [facility]-CENTRAL LABORATORY [address] [place] [address], [place] * (ABNORMAL) UA W/ SEDIMENT EXAM REFLEXED PER CRITERIA (11/27/2023 2:01 PM CDT) COLOR Yellow Yellow Color 11/27/2023 2:07 PM CDT [facility] [place] CLARITY Clear Clear Clarity 11/27/2023 2:07 PM CDT [facility] SPECIFIC GRAVITY,URINE >=1.030(A) 1.010, 1.015, 1.020, 1.025 11/27/2023 2:07 PM CDT [facility] PH,URINE 6.0 6.0, 7.0, 8.0, 5.5, 6.5, 7.5, 8.5 11/27/2023 2:07 PM CDT [facility] UROBILINOGEN, QUALITATIVE Normal Normal EU/dl 11/27/2023 2:07 PM CDT [facility] PROTEIN, URINE Trace(A) Negative mg/dL 11/27/2023 2:07 PM CDT [facility] GLUCOSE, URINE Negative Negative mg/dL 11/27/2023 2:07 PM CDT [facility] KETONES,URINE Negative Negative mg/dL 11/27/2023 2:07 PM CDT [facility] BILIRUBIN,URI NE Negative Negative 11/27/2023 2:07 PM CDT [facility] OCCULT BLOOD,URINE Negative Negative 11/27/2023 2:07 PM CDT [facility] NITRITE Negative Negative 11/27/2023 2:07 PM CDT [facility] LEUKOCYTE ESTERASE Negative Negative 11/27/2023 2:07 PM CDT [facility] [place] Urine URINE SPECIMEN / Unknown Non-Blood / Unknown 11/27/2023 2:01 PM CDT 11/27/2023 2:01 PM CDT Moe Mendez NP URINE [place] [address] [place] [facility] [place] [address], * SCAN-LABORATORY REPORT (09/24/2023 12:00 AM CDT) Scanner OTHER * (ABNORMAL) GRAIN ELEVATOR SUPERINTENDENT THIN PREP PAP SCREEN IMAGED [[id number]] (05/29/2023 3:02 PM TAX SPECIALIST) Case Report Gynecologic Cytology Report ? Case: [id number] ? Authorizing Provider: ??Abiola Masterson DO ?Collected: ? 05/29/2023 1502 ? Ordering Location: ? [facility] [place] ? Received: ?05/29/2023 1537 ? Clinic ? First Screen: ?Maurisio, Jere ? Pathologist: ? Sonia Nolasco ? MD Eloisa ? Specimen: ?GRAIN ELEVATOR SUPERINTENDENT ThinPrep Vial Screening, Cervical ? 06/06/2023 4:27 PM TAX SPECIALIST [facility] LABORATORY- ENTRAL LABORATORY INTERPRETATION/ RESULT ATYPICAL SQUAMOUS CELLS OF UNDETERMINED SIGNIFICANCE (ASCUS)(A) (none) 06/06/2023 4:27 PM [facility] LABORATORY-C ENTRAL LABORATORY IMEN ADEQUACY Satisfactory for evaluation Endocervical component present 06/06/2023 4:27 PM [facility] LABORATORY-C ENTRAL LABORATORY HPV REQUEST HPV and PAP 06/06/2023 4:27 PM TAX SPECIALIST [facility] LABORATORY-C ENTRAL LABORATORY Date of LMP unknown 06/06/2023 4:27 PM TAX SPECIALIST [facility] LABORAT[facility]-C ENTRAL LABORATORY Last Pap Date 12/27/19 06/06/2023 4:27 PM TAX SPECIALIST [facility] LABORATORY-C ENTRAL LABORATORY Last Pap Result LSIL 4:27 PM TAX SPECIALIST [facility] ENTRAL LABORATORY Abnormal Pap or Sherman Bx in last 5 years Yes 06/06/2023 4:27 PM TAX SPECIALIST [facility] LABOR[facility] Menstrual Status Irregular Periods 06/06/2023 4:27 PM TAX SPECIALIST [facility] Sherman Bx Done Today No 06/06/2023 4:27 PM TAX SPECIALIST [facility] Additional Information None given 06/06/2023 4:27 PM TAX SPECIALIST [facility] Comment: Cytology is screened at [facility][1] Laboratory - [address], [place] [address] and [facility] Laboratory - [address], [place] [address] and [facility] Laboratory - [address] [place] [address] Interpreted at [facility][1] Laboratory - [address], [place] [address] Automated Review Successful 06/06/2023 4:27 PM TAX SPECIALIST [facility] Comment:Specimen processed s uccessfully by automated lockstitch shoulder joiner device, ThinPrep Imaging System, [employer] ANCILLARY TESTING GRAIN ELEVATOR SUPERINTENDENT HPV Ordered, Please see separate report 06/06/2023 4:27 PM TAX SPECIALIST [facility] Note The pap test is a screening technique, not a diagnostic procedure. It is used primarily to screen for squamous cancers and precursor lesions. Published studies have shown that it is subject to both false negative and false positive results. The pap test should not be used as the sole means to diagnose or exclude pre-malignant and malignant lesions. 06/06/2023 4:27 PM TAX SPECIALIST [facility] Other (Cervical) Non-Blood / Unknown 05/29/2023 3:02 PM TAX SPECIALIST 05/29/2023 3:37 PM TAX SPECIALIST Abiola Masterson DO PATHOLOGY/CYTOLOGY [facility] [address] [place] [address], [place] * ANTI HCV (12/27/2019 4:02 PM CDT) HEPATITIS C ANTIBODY Non-React vidal Non-React vidal 12/28/2019 3:55 PM CDT [facility] TRAL LABORATORY Comment:Antibodies to HCV no t detected; does not exclude the possibility of exposure to HCV. Blood BLOOD SPECIMEN / Unknown Butterfly / Unknown 12/27/2019 4:02 PM CDT 12/27/2019 4:06 PM CDT Yanet Alvarez MD SEND OUTS [facility] LABORATORY-CENTRAL LABORATORY [address] [place] [address], * ANTI HIV 1/2 (12/27/2019 4:02 PM CDT) HIV-1/HIV-2 ANTIBODY Non-Reacti ve Non-Reacti ve 12/28/2019 3:52 PM CDT [facility] TRAL LABORATORY Comment:HIV-1 p24 and HIV-1/ HIV-2 Ab not detected. Blood BLOOD SPECIMEN / Unknown Butterfly / Unknown 12/27/2019 4:02 PM CDT 12/27/2019 4:06 PM CDT Yanet Alvarez MD SEND OUTS [facility]CENTRAL LABORATORY [address] [place] [id number], from Last 3 Months or Most Recently Relevant to Health Maintenance Guerline Jackson Personal/Family Self 1990 [id number] [address] [place] [id number] Guerline Jackson Workers Comp Self 1990 [id number] [place] [address] Guerline Jackson Workers Comp Self 1990 [address] [place] [address] Guerline [place] Workers Comp Self 1990 [address] [place] [address] Guerline Jackson Workers Comp Self 1990 [id number] [address] [place] [id number] ALEJANDRO CHAVARRIATINGS ESCREEN [facility] 03/31/[address] [place] [id number] ATTN A/P [address] [address] [place] [address] [employer] Occ [facility]Es Employer 03/31/2000 ATTN A/P [address] [place] [address] Guerline Jackson Personal/Family Self 1990 [id number] [address] [place] [id number] Advance Directives * Full Code (Latest Code [...] 8:21 PM 12/28/2011 11:54 PM Care Teams Financial Examiner Relationship Specialty Start Date End Date Abiola Masterson DO [address] [place] [address] PCP - General Family Practice 04/14/23
--- OUTSIDE RECORDS SUMMARY | 2023-12-24 15:01 | XMS_ITS | Referral Summary ---
Author Organization [facility] Address [address] [place] [address] Care Team Providers Care Well Point Pumping Supervisor Name Role Phone Unavailable Primary Care Provider Unavailabl e Source Comments Patient records contain information from all sites at [facility]. For routine questions regarding patient records, call [phone] during business hours, M-F 8:00 AM - 5:00 PM Central Time. Record requests for emergency care only can be directed to [phone] at any time.[facility] Allergies No known active allergies Medications Medication [...] [place]ll[place]. His first baby! She is moving [facility] during the (likely summertime) Problem Noted Date Diagnosed Date Complication Morbid Obesity Body Mass Index Greater Than 40 08/13/2023 Body Mass Index 50.0 To 59.9 Adult 08/13/2023 Elderly Multigravida Greater Than 35 Y ear Old 08/13/2023 Overview (08/13/2023): Desires NIP Panorama, scheduled 08/20/23 Preexisting Hypertension 08/13/2023 Overview (08/13/2023): Baseline preeclampsia labs collected at [facility] OB Will begin 81 mg ASA at 12 weeks Depression Anxiety 08/13/2023 High Risk 08/13/2023 Overview (08/13/2023): BMI >50 Chronic HTN Elderly multigravida Anxiety/depression We discussed advanced level US, MFM consult. She is very likely moving to [facility], and will be transferring her care closer to there once moved. No consults placed yet. Estimated Date of Delivery Comme nts Yes 03/13/2024 Based on Ultraso und Immunizations Name Administration Dates Next Due 4vHPV (discontinued) 02/11/2012,04/30/19 11,08/29/2008, 009 Anthrax 01/12/2009,10/21/2008 H1N1 Inj 02/10/2009 HepA Adult 10/21/2007,04/13/2007 IPV 04/13/2007 Influenza, Seasonal, Injectable 12/31/2012,12/08,06/04/2011 MCV4 (Menactra)(Discontinued) 04/13/2007 Td (Adult), adsorbed 09/11/2018 Tdap 10/22/2011,04/13/2007 TyVi (inj) 10/21/2008 influenza trivalent LAIV (Na laura) (2 years through 49 years) 02/03/2008,04/13/2007 Social History Tobacco Use Types Packs/Day Years Used Date Smoking Tobacco: Former Cigarettes 2 006 - 05/03/2021 Smokeless Tobacco: Never Tobacco Cessation:Counseling Given: Not Answered Comments:Started at age 15, quit in 2021 Alcohol Use Standard Drinks/Week Comments Not Currently 0 (1 standard drink = 0.6 oz pur e alcohol) [facility] Utilities Answer Date Recorded In the past 12 months has e Breezy, gas, oil, or water [employer] threatened to shut off services in your [...] Type Associated Problems Recent Progress Patient-Stated? Author [facility] Care Plan for Healthy Care Plan [facility] Care Plan for Healthy No Support, [facility] - Nicotine Dependency Chronic Care Plan [facility] Care Plan for Healthy No Support, [employer] Procedures Procedure Name Priority Date/Time Associated Diagnosis Comments HCV AB SCRN , S Routine 08/13/2023 4:52 PM CDT Encounter For Supervision Of Normal Unspecified Trimester (HCC) HIV-1/-2 AG AND AB SCRN, PLASMA Routine 08/13/2023 4:52 PM CDT Encounter For Supervision Of Normal Unspecified Trimester (HCC) from Last 3 Months or Most Recently Relevant to Health Maintenance Results * Hepatitis C Virus Antibody Screen (08/13/2023 4:52 PM CDT) HCV Ab Scrn , S Negative Negative 08/14/2023 10:25 AM CDT [facility] Comment: Consumption of high-dose biotin supplement within 12 hours of blood collection for this test can cause false-negative results. Blood (Blood, Venous) 08/13/2023 4:52 PM CDT 08/14/2023 7:24 AM CDT Loreta Ramirez APRN C.N.P. LAB MICROBIOLO GY - BLOOD ORDERABLES [facility] [address] [place] [address] [facility] [address] [place] [address] * HIV-1/-2 Ag and Ab Scrn, Plasma [...] 4:52 PM CDT 08/13/2023 8:38 PM CDT Sean Hughes APRN.N.P. LAB MICROBIOLO GY - BLOOD ORDERABLES [facility] [address] [place] [address], [place] ECLR [facility] [place] [address] [place] [address] from Last 3 Months or Most Recently Relevant to Health Maintenance Additional Health Concerns Active Problems Noted Date Diagnosed Date [facility] Care Plan for Healthy 08/30
--- OUTSIDE RECORDS SUMMARY | 2023-12-24 15:01 | XMS_ITS ---
Author Organization [facility] Address [address] [place] [address] Care Team Providers Care Senior Property Manager Name Role Phone Unavailable Unavailable Unavailable Surgery Details Not on file Complications Check Surgery Details section. Procedure Estimated Blood Loss Check Surgery Details section. Procedure Findings Check Surgery Details section. Procedure Specimens Taken Check Surgery Details section.
--- OUTSIDE RECORDS SUMMARY | 2023-12-24 15:01 | XMS_ITS | Clinical Summary ---
Author Organization [facility] Address [address] [place] [address] Care Team Providers Care School Guidance Counselor Name Role Phone Unavailable Primary Care Provider Unavailabl e Source Comments Patient records contain information from all sites at [facility]. For routine questions regarding patient records, call [phone] during business hours, M-F 8:00 AM - 5:00 PM Central Time. Record requests for emergency care only can be directed to [phone] at any time.[facility] Allergies No known active allergies Medications Medication [...] Ulloa. His first baby! She is moving [facility] during the (likely summertime) Problem Noted Date Diagnosed Date Complication Morbid Obesity Body Mass Index Greater Than 40 08/13/2023 Body Mass Index 50.0 To 59.9 Adult 08/13/2023 Elderly Multigravida Greater Than 35 Y ear Old 08/13/2023 Overview (08/13/2023): Desires NIP Panorama, scheduled 08/20/23 Preexisting Hypertension 08/13/2023 Overview (08/13/2023): Baseline preeclampsia labs collected at new OB Will begin 81 mg ASA at 12 weeks Depression Anxiety 08/13/2023 High Risk 08/13/2023 Overview (08/13/2023): BMI >50 Chronic HTN Elderly multigravida Anxiety/depression We discussed advanced level [facility]SE[facility]STIAN consult. She is very likely moving to [facility], and will be transferring her care [...] laura) (2 years through 47 years) 02/03/2008,04/13/2007 Family History Medical History Relation Name Comments [...] drink = 0.6 oz pur e alcohol) [facility] Utilities Answer Date Recorded In the past 12 months has th e electric, gas, oil, or water company [...] 19+ 3-dose series) 2007 COVID-19 Vaccine ( season) 2023 Influenza Vaccine (#1) 2023 3, 12/09/2011, 06/04/2011, [...] Associated Problems Recent Progress Patient-Stated? Author [facility] Care Plan for Healthy Care Plan [facility] Care Plan for Healthy No Support, [facility] - Nicotine Dependency Chronic Care Plan [facility] Care Plan for Healthy No Support, [facility] [...] S Negative Negative 08/14/2023 10:25 AM CDT [facility] Comment: Consumption of high-dose biotin supplement within 12 hours of blood collection for this test can cause false-negative results. Blood (Blood, Venous) 08/13/2023 4:52 PM CDT 08/14/2023 7:24 AM CDT Loreta Ramirez APRN, C.N.P. LAB MICROBIOLO GY - BLOOD ORDERABLES [facility] [address] [place] [address] [facility] [address] [place] [address] * HIV-1/-2 Ag and Ab Scrn, Plasma [...] C.N.P. LAB MICROBIOLO GY - BLOOD ORDERABLES [facility] [address] [place] [id number], [facility] ECLR [facility] in [address] [address] from Last 3 Months or Most Recently Relevant to Health Maintenance Additional Health Concerns Active Problems Noted Date Diagnosed Date [facility] Care Plan for Healthy 08/30
== END 2023-12-24 14:56 | disposition home or self-care (01) ==
PROVIDERS: Visit Provider Obstetrics & Gynecology
DX: I10 Essential (primary) hypertension (principal)
CPT/HCPCS: 82565; 82570; 84156; 84450; 84460; 84520; 85027; 86592

== ENCOUNTER 2023-12-26 08:40 | Outpatient (CLI) | payer OTHER, SELFPAY ==
--- OUTSIDE RECORDS SUMMARY | 2023-12-26 08:56 | XMS_ITS | Continuity of Care Document ---
Author Name [facility] Organization [facility] Care Team Providers Care Arboriculture Teacher Name Role Phone [facility] Unavailable Unavailable Problems Combined list of problems from Department of Defense and 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 It does not include entries that were removed or entered in error. Problem Status Onset Date Problem Type Date of Resolution Comments Source Anxiety Active Condition [facility] Attention deficit hyperactivity disorder, predominantly inattentive type Active Condition [facility] Cancer cervix screening status Active Condition Nov 21 Entered By: MAILE RAZA Comment: No hx BJ 2-3Aug 2021 Entered By: MAILE RAZA Comment: 12/07/20 Colposcopy neg/ECC negAug 2021 Entered By: MAILE RAZA Comment: 11/15/21 PAP NILM/HPV neg. Next co-test due in 3 years (10/2024). [facility] Fatigue Active Condition [facility] Major depressive disorder Active Condition [facility] Nasal congestion Active Condition [facility] White blood cell count abnormal Active Condition Nov 08, 2020 Entered By: MAILE RAZA Comment: chronic, peripheral smear done 10/2020 [facility] breathing-related sleep disorders Active Condition [facility] fatigue Active Condition [facility] Body Mass Index Active Condition [facility] routine examination Active Condition [facility] adjustment disorder with disturbance of emotions and conduct Active Condition [facility] nasal passage blockage (stuffiness) Active Condition [facility] smoking cigarettes Active Condition [facility] obesity Active Condition [facility] visit for: [facility] physical medical evaluation board (MEB) Inactive [...] DoD visit for: services physical Active Condition [facility] Preventive Medicine New Patient Evaluation Adult 18-39 [...] Need For Vaccination Hepatitis A Inactive Condition [facility] Need For Vaccination Against Combinations Of Diseases Inactive Condition [facility] Need For Vaccination Against Bacterial Diseases Inactive Condition [facility] Diagnosis: ICD-10-CM O09.522 Supervision of elderly multigravida, second trimester Active Diagnosis [facility] Diagnosis: ICD-10-CM O09.521 Supervision of elderly multigravida, first trimester Active Diagnosis [facility] Diagnosis: ICD-10-CM J34.2 Deviated nasal septum Active Diagnosis [facility] Diagnosis: ICD-10-CM E66.01 Morbid (severe) obesity due to excess calories Active Diagnosis [facility] Diagnosis: ICD-10-CM M54.50 Low back pain, unspecified Active Diagnosis [facility] Diagnosis: ICD-10-CM F90.0 Attn-defct hyperactivity disorder, predom inattentive type Active Diagnosis [facility] Diagnosis: ICD-10-CM F41.9 Anxiety disorder, unspecified Active Diagnosis [facility] Diagnosis: ICD-10-CM M25.552 Pain in left hip Active Diagnosis [facility] Diagnosis: ICD-10-CM R09.81 Nasal congestion Active Diagnosis [facility] Diagnosis: ICD-10-CM L70.8 Other acne Active Diagnosis [facility] Diagnosis: ICD-10-CM K58.2 Mixed irritable bowel syndrome Active Diagnosis SHIV Wall [facility] Diagnosis: ICD-10-CM H52.03 Hypermetropia, bilateral Active Diagnosis [facility] Diagnosis: ICD-10-CM R53.82 Chronic fatigue, unspecified Active Diagnosis [facility] Diagnosis: ICD-10-CM Z13.89 Encounter for screening for other disorder Active Diagnosis SHIV Wall [facility] Diagnosis: ICD-10-CM M79.671 Pain in right foot Active Diagnosis RANULFO BARROSO [facility] Diagnosis: ICD-10-CM I10 Essential (primary) hypertension Active Diagnosis [facility] Diagnosis: ICD-10-CM F33.41 Major depressive disorder, recurrent, in partial remission Active [facility] Diagnosis: ICD-10-CM R06.00 Dyspnea, unspecified Active Diagnosis [facility] Diagnosis: ICD-10-CM F32.A Depression, unspecified Active Diagnosis [facility] Medications Combined list of outpatient medications from [...] Oct 08, 2023 1 Nov 07, 2023 [id number] Oct 13, 2023 ALESSANDRA MCLAUGHLIN [facility] (INHAL ATION) 11/07/2023 [id number] ALBERTO MCLAUGHLIN 2023 1 [facility] BISACODYL 5MG TAB,EC BISACODY L 5MG TAB,EC TAKE TWO TABLETS BY MOUTH ONCE FOR COLON PREP FOR COLON PREP Nov 13, 2022 2 Dec 13, 2022 [id number] Nov 13, 2022 [facility] ORAL 12/13/2022 [id number] GERRY HOLM R 2022 2 [facility] BISACODYL 5MG TAB,EC BISACODY L 5MG TAB,EC TAKE TWO TABLETS BY MOUTH DIRECTED FOR COLON PREP FOR COLON PREP Sep 27, 2022 2 Oct 27, 2022 [id number] Sep 27, 2022 GERRY HOLM R [facility] ORAL 10/27/2022 [id number] MIHAI GERRY Nata 2022 2 [facility] CICLOPIROX 8% SOLN,TOP CICLOPIR OX 8% SOLN,TOP Active APPLY THIN FILM TOPICALL Y EVERY DAY FOR FUNGAL NAIL INFECTIO N -- USE UNTIL RESOLUTI ON OR 48 WEEKS FOR FUNGAL NAIL INFECTIO N Dec 31, 2022 19.8 Jan 01, 2024 [id number] Dec 31, 2022 ADDIE VALDEZ [facility] TOPICA L ACTIVE 01/01/2024 [id number] LEOPOLDO GUERRERO 2022 19.8 [facility] FLUCONAZOLE 150MG TAB FLUCONAZ OLE 150MG TAB Disconti nued TAKE ONE TABLET BY MOUTH ONCE FOR ONE DOSE May 14, 2023 1 Jun 13, 2023 [id number] May 14, 2023 RICARDO FELIPE [facility] ORAL DISCONT INUED 06/13/2023 [id number] Bonny FELIPE 2023 1 [facility] IMIQUIMOD 5% CREAM,TOP,P KT,0.25GM IMIQUIMO D 5% CREAM,TO P,PKT,0. 25GM Active APPLY 1 PACKET TOPICALL Y FRIDAY, Y AND FRIDAY AT BEDTIME LEAVE ON SKIN FOR 8 HOURS. DO NOT USE WHILE Oct 30, 2023Oct 30, 2024 [id number] Nov 01, 2023 FB-HRDLI ARNOLDO HARO [facility] TOPICA L ACTIVE 10/30/2024 [id number] FB-HRDLIC HKA,KRYST A M 2023 24 [place] [facility] LOPERAMIDE HCL 2MG CAP LOPERAMI DE HCL 2MG CAP TAKE ONE TO TWO CAPSULES BY MOUTH NEEDED UP TO THREE TIMES DAILY FOR DIARRHEA FOR DIARRHEA Sep 27, 2022 100 Sep 28, 2023 [id number] Sep 27, 2022 [facility]Y [facility]OLM R [facility] ORAL 09/28/2023 [id number] GERRY HOLM R 2022 100 [facility] METRONIDAZO LE 500MG TAB METRONID AZOLE 500MG TAB Disconti nued TAKE ONE TABLET BY MOUTH TWICE A DAY FOR 7 DAYS May 14, 2023 14 Jun 13, 2023 [id number] May 14, 2023 RICARDO FELIPE S [facility] ORAL DISCONT INUED 06/13/2023 [id number] Bonny FELIPE 2023 14 [facility] MODAFINIL 200MG TAB MODAFINI L 200MG TAB Disconti nued TAKE ONE AND ONE-HALF TABLETS BY MOUTH EVERY MORNING FOR MOOD, ENERGY FOR MOOD, ENERGY Nov 28, 2022 45 May 31, 2023 [id number] Apr 30, 2023 CHITIMACHA, [facility] E [facility] OR[facility] DISCONT INUED BY PROVIDE R 05/31/2023 [id number] CHITIMACHA,A BIGAIL E 2022 45 [facility] MODAFINIL 200MG TAB MODAFINI L 200MG TAB Disconti nued TAKE ONE TABLET BY MOUTH EVERY MORNING FOR MOOD, ENERGY FOR ENERGY, FOCUS, MOOD FOR MOOD, ENERGY Nov 12, 2022 30 May 16, 2023 [id number] Nov 13, 2022 CHITIMACHA, FRANCK E [facility] ORAL DISCONT INUED (EDIT) 05/16/2023 [id number] CHITIMACHA,A BIGAIL E 2022 30 [facility] MODAFINIL 200MG TAB MODAFINI L 200MG TAB Disconti nued TAKE ONE-HALF TABLET BY MOUTH EVERY MORNING FOR 3 DAYS, THEN TAKE ONE TABLET EVERY MORNING FOR ENERGY, FOCUS, MOOD FOR ENERGY, MOOD Oct 09, 2022 29 Apr 11, 2023 [id number] Oct 09, 2022 CHITIMACHA, FRANCK E [facility] ORAL DISCONT INUED 04/11/2023 [id number] CHITIMACHA,A BIGAIL E 2022 29 [facility] MULTIVITAMI NS W/MINERALS, CAP/TAB MULTIVIT AMINS W/MINERA LS,PRENA BRII CAP/TAB Active TAKE 1 TABLET BY MOUTH EVERY DAY FOR SUPPLEME NT FOR SUPPLEME NT August 07, 2023 100 August 07, 2024 [id number] A August 08, 2023 BINA MAYA [facility] ORAL ACTIVE 08/07/2024 [id number] BINA BAI 2023 100 [facility] MULTIVITAMI NS W/MINERALS, CAP/TAB MULTIVIT AMINS W/MINERA LS,PRENA BRII CAP/TAB Disconti nued TAKE 1 TABLET BY MOUTH EVERY DAY FOR SUPPLEME NT FOR SUPPLEME NT Jul 19, 2022 100 Jul 20, 2023 [id number] Mar 06, 2023 BINA MAYA [facility] ORAL DISCONT INUED 07/20/2023 [id number] BINA BAI 2022 100 [facility] NIFEDIPINE (EQV-CC) 30MG TAB,SA NIFEDIPI NE (EQV-CC) 30MG TAB,SA Active TAKE ONE TABLET BY MOUTH EVERY DAY FOR BLOOD PRESSURE FOR BLOOD PRESSURE August 07, 2023 90 August 07, 2024 [id number] A Dec 22, 2023 BINA MAYA [facility] ORAL ACTIVE 08/07/2024 [id number] BINA BAI 2023 90 [facility] NIFEDIPINE (EQV-CC) 30MG TAB,SA NIFEDIPI NE (EQV-CC) 30MG TAB,SA Disconti nued TAKE ONE TABLET BY MOUTH EVERY DAY FOR BLOOD PRESSURE FOR BLOOD PRESSURE Jul 19, 2022 90 Jul 20, 2023 [id number] May 22, 2023 BINA MAYA [facility] ORAL DISCONT INUED 07/20/2023 [id number] BINA BAI 2022 90 [facility] OMEPRAZOLE 20MG CAP,EC OMEPRAZO LE 20MG CAP,EC Disconti nued TAKE TWO CAPSULES BY MOUTH EVERY DAY BEFORE A MEAL Jul 16, 2023 60 August 15, 2023 [id number] Jul 18, 2023 FB-ISCHE ,IMANI W [facility] ORAL DISCONT INUED 08/15/2023 [id number] FB-ISCHE, IMANI W 2023 60 [facility] PEG-3350/EL ECTROLYTES PWDR PEG-3350 /ELECTRO LYTES PWDR TAKE ONE AND ONE-HALF CONTAINE RS BY MOUTH DIRECTED FOR COLON PREP FOR COLON PREP Nov 13, 2022 2 Dec 13, 2022 [id number] Nov 13, 2022 GERRY HOLM [facility] ORAL 12/13/2022 [id number] GERRY HOLM 2022 2 [facility] PEG-3350/EL ECTROLYTES PWDR PEG-3350 /ELECTRO LYTES PWDR TAKE ONE CONTAINE R BY MOUTH DIRECTED FOR COLON PREP FOR COLON PREP Sep 27, 2022 1 Oct 27, 2022 [id number] Sep 27, 2022 GERRY HOLM [facility] ORAL 10/27/2022 [id number] GERRY HOLM 2022 1 [facility] VENLAFAXINE HCL 150MG 24HR CAP,SA VENLAFAX INE HCL 150MG 24HR CAP,SA Disconti nued TAKE ONE CAPSULE BY MOUTH EVERY DAY FOR ANXIETY, PAIN FOR ANXIETY, PAIN Jan 16, 2023 90 Jan 17, 2024 [id number] Apr 07, 2023 LEEANNA FRANCK E [facility] ORAL DISCONT INUED BY KAMALA R 01/17/2024 [id number] CHITIMACHA,A BIGAIL E 2022 90 [facility] VENLAFAXINE HCL 37.5MG 24HR CAP,SA VENLAFAX INE HCL 37.5MG 24HR CAP,SA Disconti nued TAKE ONE CAPSULE BY MOUTH EVERY DAY WITH A MEAL Jun 06, 2023 14 Jul 05, 2023 [id number] Jun 06, 2023 [facility]E [facility] DISCONT INU[facility] BY PROVIDE R 07/05/2023 [id number] [facility]LAYE [facility] 2023 [facility] VENLAFAXINE HCL 37.5MG 24HR CAP,SA VENLAFAX INE HCL 37.5MG 24HR CAP,SA Disconti nued TAKE ONE CAPSULE BY MOUTH EVERY DAY FOR ANXIETY, PAIN FOR ANXIETY, PAIN Oct 10, 2022 90 Oct 11, 2023 [id number] Oct 14, 2022 CHITIMACHA, [facility] OR[facility] DISCONT INUED (EDIT) 10/11/2023 [id number] CHITIMACHA,A BIGAIL E 2022 90 [facility] VENLAFAXINE HCL 75MG 24HR CAP,SA VENLAFAX INE HCL 75MG 24HR CAP,SA Disconti nued TAKE ONE CAPSULE BY MOUTH EVERY DAY WITH MEAL FOR 14 DAYS Jun 06, 2023 14 Jul 05, 2023 [id number] Jun 06, 2023 [facility] ORAL DISCONT INUED BY PROVIDE R 07/05/2023 [id number] ABDOULAYE ROOT 2023 14 [facility] VENLAFAXINE HCL 75MG 24HR CAP,SA VENLAFAX INE HCL 75MG 24HR CAP,SA Disconti nued TAKE ONE CAPSULE BY MOUTH EVERY DAY FOR ANXIETY, PAIN FOR ANXIETY, PAIN Nov 28, 2022 90 Nov 29, 2023 [id number] Dec 03, 2022 CHITIMACHA, [facility]ANCK [facility] ORAL DISCONT INUED (EDIT) 11/29/2023 [id number] CHITIMACHA,A BIGAIL E 2022 90 [facility] Allergies, Adverse Reactions, Alerts Combined list of allergies from Department of Defense and 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 It does not include entries that were removed or entered in error. Substance Category Reaction Severity Reaction type Status Date Reported Comments Source No Known Allergies Drug allergy (disorder) active 12/25/2007 [employer] Immunizations Combined list of available immunizations from the Department of [facility] and 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 Immunization Series Date Given Administered By Site Reaction Lot Number CVX Code Drug Safety And Health Consultant Status Comments Source TD (ADULT), 2 LF TETANUS TOXOID, PRESERVATIVE FREE, ADSORBED 2018 09 complet ed [employer]i, [id number], EX 12/22/19 [facility] INFLUENZA, SEASONAL, INJECTABLE 2012 141 complet ed [facility] HPV, QUADRIVALENT 2 2011 62 complet ed [facility] INFLUENZA, SEASONAL, INJECTABLE 2011 141 complet ed [facility] TDAP 2011 115 complet ed [facility] INFLUENZA, SEASONAL, INJECTABLE 2011 141 complet ed [facility] HPV, QUADRIVALENT 1 2010 62 complet ed [facility] Novel influenza-H1N 1-09, injectable 1 2008 [id number] 127 [employer] Es. (NOV) complet ed Novel influenza -Q8T6-31, injectabl e [facility] anthrax vaccine 2 2008 [id number] [employer] ([facility]) complet ed anthrax vaccine [facility] anthrax vaccine 1 2008 [id number] [employer] ([facility]) complet ed anthrax vaccine [facility] vaccinia (smallpox) vaccine 1 2008 UNK 75 Unknown (UNK) Not Given vaccinia (smallpox ) vaccine [facility] typhoid Vi capsular polysaccharid e vaccine 1 2008 [id number] Unknown (UNK) comple t ed typhoid Vi capsular polysacch aride vaccine [facility] human papilloma virus vaccine, quadrivalent 1 2008 IBETH RUBY [id number] Merck (MSD) complet ed human papilloma virus vaccine, quadrival ent [facility] influenza virus vaccine, live, attenuated, for intranasal use 1 2007 [id number] 111 Other (OTH) complet ed influenza virus vaccine, live, attenuate d, for intranasa l use DoD hepatitis A vaccine, adult dosage 2 2007 [id number] 52 Unknown (UNK) complet ed hepatitis A vaccine, adult dosage DoD TDAP 2007 115 complet ed [place] [facility] measles, mumps and rubella virus vaccine 1 2007 UNK 03 Unknown (UNK) Not Given measles, mumps and rubella virus vaccine DoD poliovirus vaccine, inactivated 1 2007 [id number] Sanofi Pasteur (PMC) complet ed polioviru [...] live, attenuated, for intranasal use 1 2007 [id number] 111 [employer]. (MED) complet ed influenza virus vaccine, live, attenuate d, for intranasa l use DoD meningococcal polysaccharid e (groups A, C, Y and W-135) diphtheria toxoid conjugate vaccine (MCV4P) 1 2007 [id number] 114 Sanofi Pasteur (PMC) complet ed meningoco ccal polysacch aride (groups A, C, Y and W-135) diphtheri a toxoid conjugate vaccine (MCV4P) DoD tetanus toxoid, reduced diphtheria toxoid, and acellular pertu is vaccine, adsorbed 1 2007 [id number] Sanofi Pasteur (PMC) complet ed tetanus [...] Dec 31, 2022 01:23 PM Reporting Lab: [facility] [address] Performing Lab: [facility] [address] [facility] IS [facility] C.TRACHO MATIS/N. GONORRHE A DNA NEISSERIA GONORRHOEA E DNA [PRESENCE] IN URINE BY MAL WITH PROBE DETECTION NOT DETECTED 12/31 Specimen Type: URINE No comment entered. Ordering Provider: Angy GUERRERO Report Released Date/Time: Dec 31, 2022 01:23 PM Reporting Lab: [facility] [address] Performing Lab: [address] [facility] C.TRACHO MATIS/N. GONORRHE A DNA INTERPRETA TION AND REVIEW OF LABORATORY RESULTS Infectio us agent DNA is not detected by this assay 12/31 Specimen Type: URINE No comment entered. Ordering Provider: Angy GUERRERO Report Released Date/Time: Dec 31, 2022 01:23 PM Reporting Lab: [facility] [address] Performing Lab: [facility] [address] [facility] IS [facility] HCG, QUAL CHORIOGONA DOTROPIN.B ETA SUBUNIT ( TEST) [PRESENCE] IN URINE NEGATIVE 12/31 Specimen Type: URINE No comment entered. Ordering Provider: Angy GUERRERO Report Released Date/Time: Dec 31, 2022 01:23 PM Reporting Lab: [facility] [address] Performing Lab: [facility] [address] [facility] IS [facility] LIPID PANEL,NO N-FASTIN G CHOLESTERO L [MASS/VOLU [...] Jul 19, 2022 09:34 AM Reporting Lab: [facility] [address] Performing Lab: [facility] [address] [place] [facility] LIPID PANEL,NO N-FASTIN G CHOLESTERO [...] Jul 19, 2022 09:34 AM Reporting Lab: [facility] [address] Performing Lab: [facility] [address] [place] [facility] LIPID PANEL,NO N-FASTIN G CHOLESTERO [...] Jul 19, 2022 09:34 AM Reporting Lab: [facility] [address] Performing Lab: [facility] [address] [place] [facility] LIPID PANEL,NO N-FASTIN G CHOLESTERO [...] Jul 19, 2022 09:34 AM Reporting Lab: [facility] [address] Performing Lab: [facility] [address] [place] [facility] LIPID PANEL,NO N-FASTIN G CHOLESTERO L NON [...] Jul 19, 2022 09:34 AM Reporting Lab: [facility] [address] Performing Lab: [facility] [address] [place] [facility] LIPID PANEL,NO N-FASTIN G TRIGLYCERI DE [MASS/VOLU [...] Jul 19, 2022 09:34 AM Reporting Lab: [facility] [address] Performing Lab: [facility] [address] [place] [facility] C-REACTI VE PROTEIN C REACTIVE PROTEIN [MASS/VOLU [...] Jul 19, 2022 09:34 AM Reporting Lab: [facility] [address] Performing Lab: [facility] [address] [place] [facility] COMPREHE NSIVE METABOLI C PANEL+MG CREATININE [MASS/VOLU [...] Jul 19, 2022 09:34 AM Reporting Lab: [facility] [address] Performing Lab: [address] [facility] COMPREHE NSIVE METABOLI C PANEL+MG UREA NITROGEN [...] Jul 19, 2022 09:34 AM Reporting Lab: [facility] [address] Performing Lab: [facility] [address] [facility] COMPREHE NSIVE METABOLI C PANEL+MG GLUCOSE [MASS/VOLU [...] Jul 19, 2022 09:34 AM Reporting Lab: [facility] [address] Performing Lab: [facility] [address] [facility] COMPREHE NSIVE METABOLI C PANEL+MG SODIUM [MOLES/VOL [...] Jul 19, 2022 09:34 AM Reporting Lab: [facility] [address] Performing Lab: [place] [id number] [facility] COMPREHE NSIVE METABOLI C PANEL+MG POTASSIUM [MOLES/VOL [...] Jul 19, 2022 09:34 AM Reporting Lab: [facility] [address] Performing Lab: [place] [address] [facility] COMPREHE NSIVE METABOLI C PANEL+MG CHLORIDE [MOLES/VOL [...] Jul 19, 2022 09:34 AM Reporting Lab: [facility] [address] Performing Lab: [facility] [address] [facility] COMPREHE NSIVE METABOLI C PANEL+MG CARBON DIOXIDE, [...] Jul 19, 2022 09:34 AM Reporting Lab: [facility] [address] Performing Lab: [facility] [address] [facility] COMPREHE NSIVE METABOLI C PANEL+MG CALCIUM [MASS/VOLU [...] Jul 19, 2022 09:34 AM Reporting Lab: [facility] [address] Performing Lab: [facility] [address] [facility] COMPREHE NSIVE METABOLI C PANEL+MG PROTEIN [...] Jul 19, 2022 09:34 AM Reporting Lab: [facility] [address] Performing Lab: [facility] [address] [facility] COMPREHE NSIVE METABOLI C PANEL+MG ALBUMIN [MASS/VOLU [...] Jul 19, 2022 09:34 AM Reporting Lab: [facility] [address] Performing Lab: [facility] [address] [place] [facility] COMPREHE NSIVE METABOLI C PANEL+MG BILIRUBIN. TOTAL [MASS/VOLU ME] IN SERUM OR PLASMA 0.3 mg/dL 0.2 - 1.2 12/31 Specimen Type: PLASMA Comment: Elevated triglycerid e result from a non-fasting specimen should be interpreted with caution. A fasting panel is recommended for accurate triglycerid es when trigs are >200 from a non-fasting specimen. Ordering Provider: JAKBU RAZA Report Released Date/Time: Jul 19, 2022 09:34 AM Reporting Lab: [facility] [address] Performing Lab: [place] [address] [facility] COMPREHE NSIVE METABOLI C PANEL+MG MAGNESIUM [MASS/VOLU [...] Jul 19, 2022 09:34 AM Reporting Lab: [facility] [address] Performing Lab: [place] [address] [facility] COMPREHE NSIVE METABOLI C PANEL+MG ANION GAP [...] Jul 19, 2022 09:34 AM Reporting Lab: [facility] [address] Performing Lab: [facility] [address] [facility] COMPREHE NSIVE METABOLI C PANEL+MG ALKALINE PHOSPHATAS [...] Jul 19, 2022 09:34 AM Reporting Lab: [facility] [address] Performing Lab: [facility] [address] [place] [facility] COMPREHE NSIVE METABOLI C PANEL+MG ALANINE AMINOTRANS [...] Jul 19, 2022 09:34 AM Reporting Lab: [facility] [address] Performing Lab: [facility] [address] [facility] COMPREHE NSIVE METABOLI C PANEL+MG ASPARTATE AMINOTRANS [...] Jul 19, 2022 09:34 AM Reporting Lab: [facility] [address] Performing Lab: [facility] [address] [facility] COMPREHE NSIVE METABOLI C PANEL+MG GLOMERULAR FILTRATION [...] Jul 19, 2022 09:34 AM Reporting Lab: [facility] [address] Performing Lab: [facility] [address] [facility] CBC & DIFF LEUKOCYTES [#/VOLUME] IN BLOOD BY AUTOMATED COUNT 13.98 10*3/uL 4.0 - 11.0 12/31 H Specimen Type: BLOOD Comment: Manual Differentia l Performed Ordering Provider: JAKUB RAZA Report Released Date/Time: Jul 18, 2022 03:26 PM Reporting Lab: [facility] [address] Performing Lab: [facility] [address] [place] [facility] CBC & DIFF ERYTHROCYT ES [#/VOLUME] IN BLOOD BY AUTOMATED COUNT 4.29 10*6/uL 4.0 - 5.4 12/31 Specimen Type: BLOOD Comment: Manual Differentia l Performed Ordering Provider: JAKUB RAZA Report Released Date/Time: Jul 18, 2022 03:26 PM Reporting Lab: [facility] [address] Performing Lab: [facility] [address] [place] [facility] CBC & DIFF HEMOGLOBIN [MASS/VOLU ME] IN BLOOD 14.0 g/dL 11.5 - 16 12/31 Specimen Type: BLOOD Comment: Manual Differentia l Performed Ordering Provider: JAKUB RAZA Report Released Date/Time: Jul 18, 2022 03:26 PM Reporting Lab: [facility] [id number] Performing Lab: [facility] [id number] [facility] CBC & DIFF HEMATOCRIT [VOLUME FRACTION] OF BLOOD BY AUTOMATED COUNT 40.2 34.5 - 48 12/31 Specimen Type: BLOOD Comment: Manual Differentia l Performed Ordering Provider: JAKUB RAZA Report Released Date/Time: Jul 18, 2022 03:26 PM Reporting Lab: [facility] [id number] Performing Lab: [facility] [id number] [facility] CBC & DIFF MCV [ENTITIC VOLUME] BY AUTOMATED COUNT 93.7 fL 80 - 100 12/31 Specimen Type: BLOOD Comment: Manual Differentia l Performed Ordering Provider: JAKUB RAZA Report Released Date/Time: Jul 18, 2022 03:26 PM Reporting Lab: [facility] [address] Performing Lab: [facility] [address] [place] [facility] CBC & DIFF MCH [ENTITIC MASS] BY AUTOMATED COUNT 32.6 pg 27 - 33 12/31 Specimen Type: BLOOD Comment: Manual Differentia l Performed Ordering Provider: JAKUB RAZA Report Released Date/Time: Jul 18, 2022 03:26 PM Reporting Lab: [facility] [address] Performing Lab: [facility] [address] [place] [facility] CBC & DIFF MCHC [MASS/VOLU ME] BY AUTOMATED COUNT 34.8 g/dL 32.0 - 37.5 12/31 Specimen Type: BLOOD Comment: Manual Differentia l Performed Ordering Provider: JAKUB RAZA Report Released Date/Time: Jul 18, 2022 03:26 PM Reporting Lab: [facility] [address] Performing Lab: [facility] [address] [place] [facility] CBC & DIFF PLATELETS [#/VOLUME] IN BLOOD BY AUTOMATED COUNT 361 10*3/uL 150 - 400 12/31 Specimen Type: BLOOD Comment: Manual Differentia l Performed Ordering Provider: JAKUB RAZA Report Released Date/Time: Jul 18, 2022 03:26 PM Reporting Lab: [facility] [address] Performing Lab: [facility] [address] [place] [facility] CBC & DIFF PLATE[place] MEAN VOLUME [ENTITIC VOLUME] IN BLOOD BY AUTOMATED COUNT 8.8 fL 7.4 - 10.4 12/31 Specimen Type: BLOOD Comment: Manual Differentia l Performed Ordering Provider: JAKUB RAZA Report Released Date/Time: Jul 18, 2022 03:26 PM Reporting Lab: [facility] [address] Performing Lab: [facility] [address] [place] [facility] CBC & DIFF NEUTROPHIL S/100 LEUKOCYTES IN BLOOD BY MANUAL COUNT 59.9 12/31 Specimen Type: BLOOD Comment: Manual Differentia l Performed Ordering Provider: LUZ MARINA,SOP HIA A Report Released Date/Time: Jul 18, 2022 03:26 PM Reporting Lab: [facility] [address] Performing Lab: [facility] [address] [place] [facility] CBC & DIFF LYMPHOCYTE S/100 LEUKOCYTES IN BLOOD BY MANUAL COUNT 31.5 12/31 Specimen Type: BLOOD Comment: Manual Differentia l Performed Ordering Provider: JAKUB RAZA Report Released Date/Time: Jul 18, 2022 03:26 PM Reporting Lab: [facility] [address] Performing Lab: [facility] [address] [place] [facility] CBC & DIFF ERYTHROCYT E DISTRIBUTI ON WIDTH [RATIO] BY AUTOMATED COUNT 12.5 11.5 - 14.5 12/31 Specimen Type: BLOOD Comment: Manual Differentia l Performed Ordering Provider: JAKUB RAZA Report Released Date/Time: Jul 18, 2022 03:26 PM Reporting Lab: [facility] [address] Performing Lab: [facility] [address] [place] [facility] CBC & DIFF MONOCYTES/ 100 LEUKOCYTES IN BLOOD BY AUTOMATED COUNT 4.1 12/31 Specimen Type: BLOOD Comment: Manual Differentia l Performed Ordering Provider: JAKUB RAZA Report Released Date/Time: Jul 18, 2022 03:26 PM Reporting Lab: [facility] [address] Performing Lab: [facility] [address] [place] [facility] CBC & DIFF EOSINOPHIL S/100 LEUKOCYTES IN BLOOD BY AUTOMATED COUNT 3.0 12/31 Specimen Type: BLOOD Comment: Manual Differentia l Performed Ordering Provider: JAKUB RAZA A Report Released Date/Time: Jul 18, 2022 03:26 PM Reporting Lab: [facility] [address] Performing Lab: [facility] [address] [place] [facility] CBC & DIFF BASOPHILS/ 100 LEUKOCYTES IN BLOOD BY MANUAL COUNT 1.0 12/31 Specimen Type: BLOOD Comment: Manual Differentia l Performed Ordering Provider: JAKUB RAZA Report Released Date/Time: Jul 18, 2022 03:26 PM Reporting Lab: [facility] [address] Performing Lab: [facility] [address] [place] [facility] CBC & DIFF MYELOCYTES /100 LEUKOCYTES IN BLOOD BY MANUAL COUNT 0.5 12/31 Specimen Type: BLOOD Comment: Manual Differentia l Performed Ordering Provider: JAKUB RAZA Report Released Date/Time: Jul 18, 2022 03:26 PM Reporting Lab: [facility] [address] Performing Lab: [facility] [address] [place] [facility] CBC & DIFF LYMPHOCYTE S [#/VOLUME] IN BLOOD BY AUTOMATED COUNT 4.40 10*3/uL 1.0 - 4.0 12/31 H Specimen Type: BLOOD Comment: Manual Differentia l Performed Ordering Provider: JAKUB RAZA Report Released Date/Time: Jul 18, 2022 03:26 PM Reporting Lab: [facility] [address] Performing Lab: [facility] [address] [place] [facility] CBC & DIFF MONOCYTES [#/VOLUME] IN BLOOD BY AUTOMATED COUNT 0.57 10*3/uL 0.1 - 1.0 12/31 Specimen Type: BLOOD Comment: Manual Differentia l Performed Ordering Provider: JAKUB RAZA Report Released Date/Time: Jul 18, 2022 03:26 PM Reporting Lab: [facility] [address] Performing Lab: [facility] [address] [place] [facility] CBC & DIFF NEUTROPHIL S [#/VOLUME] IN BLOOD BY AUTOMATED COUNT 8.37 10*3/uL 2.0 - 7.7 12/31 H Specimen Type: BLOOD Comment: Manual Differentia l Performed Ordering Provider: JAKUB RAZA Report Released Date/Time: Jul 18, 2022 03:26 PM Reporting Lab: [facility] [address] Performing Lab: [facility] [address] [place] [facility] CBC & DIFF EOSINOPHIL S [#/VOLUME] IN BLOOD BY AUTOMATED COUNT 0.42 10*3/uL 0 - 0.5 12/31 Specimen Type: BLOOD Comment: Manual Differentia l Performed Ordering Provider: JAKUB RAZA Report Released Date/Time: Jul 18, 2022 03:26 PM Reporting Lab: [facility] [address] Performing Lab: [facility] [address] [facility] CBC & DIFF BASOPHILS [#/VOLUME] IN BLOOD BY AUTOMATED COUNT 0.14 10*3/uL 0 - 0.2 12/31 Specimen Type: BLOOD Comment: Manual Differentia l Performed Ordering Provider: JAKUB RAZA Report Released Date/Time: Jul 18, 2022 03:26 PM Reporting Lab: [facility] [address] Performing Lab: [facility] [address] [facility] IS [facility] CBC & DIFF MYELOCYTES [#/VOLUME] IN BLOOD BY MANUAL COUNT 0.07 10*3/uL 12/31 Specimen Type: BLOOD Comment: Manual Differentia l Performed Ordering Provider: JAKUB RAZA Report Released Date/Time: Jul 18, 2022 03:26 PM Reporting Lab: [facility] [address] Performing Lab: [facility] [address] [facility] CBC & DIFF ERYTHROCYT E MORPHOLOGY FINDING [IDENTIFIE R] IN BLOOD NORMOCYT IC, NORMOCHR OMIC 12/31 Specimen Type: BLOOD Comment: Manual Differentia l Performed Ordering Provider: JAKUB RAZA Report Released Date/Time: Jul 18, 2022 03:26 PM Reporting Lab: [facility] [address] Performing Lab: [facility] [address] [facility] HIV AG/AB SCREEN HIV 1+2 AB+HIV1 P24 AG [PRESENCE] IN SERUM OR PLASMA BY IMMUNOASSA Y NEGATIVE 12/31 Specimen Type: SERUM No comment entered. Ordering Provider: Angy GUERRERO Report Released Date/Time: Dec 31, 2022 01:23 PM Reporting Lab: [facility] [address] Performing Lab: [facility] [address] [place] [facility] ANTI-HEP C(EIA) HEPATITIS C VIRUS AB [PRESENCE] IN SERUM NEGATIVE 12/31 Specimen Type: SERUM No comment entered. Ordering Provider: Angy GUERRERO Report Released Date/Time: Dec 31, 2022 01:23 PM Reporting Lab: [facility] [address] Performing Lab: [facility] [address] [place] [facility] SYPHILIS ANTIBODY SYPHILIS SCREEN TEST STATUS CPHS NEGATIVE 12/31 Specimen Type: SERUM No comment entered. Ordering Provider: Angy GUERRERO Report Released Date/Time: Dec 31, 2022 01:23 PM Reporting Lab: [facility] [address] Performing Lab: [facility] [address] [place] [facility] PROLACTI N PROLACTIN [MASS/VOLU ME] IN SERUM OR PLASMA BY IMMUNOASSA Y 2.51 ng/mL <26.53 - 26.53 10/29 Specimen Type: PLASMA No comment entered. Ordering Provider: Angy GUERRERO Report Released Date/Time: Oct 25, 2022 04:35 PM Reporting Lab: [facility] [address] Performing Lab: [facility] [address] [place] [facility] Vital Signs Combined list of inpatient and [...] [facility] SYSTOLIC BLOOD PRESSURE 116 12/31/2022 12:57:07 [facility] DIASTOLIC BLOOD PRESSURE 83 12/31/2022 12:57:07 [facility] PULSE OXIMETRY 97% 12/31/2022 12:57:07 [facility] WEIGHT 284.9 12/31/2022 12:57:07 [facility] BMI 47kg/m2 12/31/2022 12:57:07 [facility] PAIN 0 12/31/2022 12:57:07 [facility] TEMPERATURE 98.1 12/31/2022 12:57:07 [facility] PULSE 93 12/31/2022 12:57:07 [facility] RESPIRATION 18 12/31/2022 12:57:07 [facility] Encounters Combined list of: 1) [facility] 2) Encounters from the Department of Defense facilities going back up to 280 months. Location Location Details Encounter Type Encounter Number Reason For Visit Attending Provider ADM Date DC Date Status Disposition Source [employer](IEP Hearing Conservat ion) OUTPATIENT [id number] LESLY CHRISTENSEN 04/09 Released w/o Limitations [employer](I EP Hearing Conserv ation) [employer](RE C Post Immunizat ion) OUTPATIENT [id number] IET PPD JOANNE TABARES 04/10 Released w/o Limitations [employer](M AHC Post Immuniz ation) [employer](RE C Post Immunizat ion) OUTPATIENT [id number] IET IMMUNIZ ATIONS LISSETT VERMA 04/13 Released w/o Limitations [employer](M AHC Post Immuniz ation) [employer](C Ambulator y) OUTPATIENT [id number] rtd MARCY ESPINOZA 06/05 Released with Work/Duty Limitations [employer](T MC Ambulat ory) [employer](TMC Ambulator y) OUTPATIENT [id number] SAM MCKEON 06/14 Released with Work/Duty Limitations [employer](T MC Ambulat ory) PEREZ Berrios([facility]) OUTPATIENT [id number] SELF CARE CLASS [place] Angy 06/30 Released w/o Limitations PEREZ Overton([facility]) PEREZ Berrios([facility]) OUTPATIENT [id number] right knee pain for 5 days DEJA GARCIA R 07/12 Released with Work/Duty Limitations [facility] [facility](Fami ly Practic e Combine d) [facility]ERE[facility] Berrios([facility]) OUTPATIENT [id number] l HIP BACK PAIN BRETT RIVAS 07/23 Released with Work/Duty Limitations [facility] [facility](Fami ly Practic e Combine d) PEREZ Berrios([facility]) OUTPATIENT [id number] L hip pain BANDAR JASMINE 08/12 Released with Work/Duty Limitations [facility] [facility](Fami ly Practic e Combine d) PERE[facility] Berrios([facility]) OUTPATIENT [id number] broken nose DEJA GARCIA R 08/16 Released with Work/Duty Limitations [facility](Fami ly Practic e Combine d) [facility](Hear ing Conservat ion [facility]) OUTPATIENT [id number] in-proc essing/ pcs HALINA AIME A 09/20 Released w/o Limitations [facility](He aring Conserv ation [facility]) [facility]) OUTPATIENT [id number] Inproce ROM Corcoran 09/21 Released w/o Limitations [facility]) [facility]) OUTPATIENT [id number] GERALD Galeano 10/13 Released with Work/Duty Limitations [facility]) [facility](Immi gration Phys Exam) OUTPATIENT [id number] possibl e sinus infecti on ST CHETNA, CHETNA MIKALA 11/03 Released w/o Limitations [facility](Im migrati on Phys Exam) [facility](Immi gration Phys Exam) OUTPATIENT [id number] back pain/wr ist pain possibl e referra l ST CHETNA CHETNA MIKALA 11/16 Released with Work/Duty Limitations [facility](Im migrati on Phys Exam) [facility](Occu pational Therapy) OUTPATIENT [id number] joint pain, localiz ed in the wrist CLARY NDIAYE 12/07 Released w/o Limitations [facility](Oc cupatio nal Therapy ) [facility](Immi gration Phys Exam) OUTPATIENT [id number] crack on left foot CHETNA BASILIO MIKALA 12/24 Released w/o Limitations [facility](Im migrati on Phys Exam) [facility](Immi gration Phys Exam) OUTPATIENT [id number] asthma evaluat ion GERALD FLORES 03/16 Released w/o Limitations [facility](Im migrati on Phys Exam) [facility](Immi gration Phys Exam) OUTPATIENT [id number] back pain GERALD FLORES 06/01 Released with Work/Duty Limitations [facility](Im migrati on Phys Exam) [facility](Immi gration Phys Exam) OUTPATIENT [id number] follow up GERALD FLORES 06/28 Released with Work/Duty Limitations [facility](Im migrati on Phys Exam) [facility](Phys ical Therapy Tran) OUTPATIENT [id number] VICTOR HUGO RODRIGUEZ 06/29 Released with Work/Duty Limitations [facility](Ph ysical Therapy Tran ) [facility](Phys ical Therapy Tran) OUTPATIENT [id number] JEMMA MARTINS III 07/06 Released w/o Limitations [facility](Ph ysical Therapy Tran ) [facility](Immi gration Phys Exam) OUTPATIENT [id number] CANDACE Kaur 07/12 Released w/o Limitations [facility](Im migrati on Phys Exam) [facility](Phys ical Therapy Tran) OUTPATIENT [id number] JEMMA MARTINS III 07/13 Released w/o Limitations [facility](Ph ysical Therapy Tran ) [facility](Phys ical Therapy Tran) OUTPATIENT [id number] JEMMA MARTINS III 07/15 Released w/o Limitations [facility](Ph ysical Therapy Tran ) [facility](Immi gration Phys Exam) TELE CONSULT [id number] lab result SCOOBYCANDACE FLORES CHETNA 07/15 [facility](Im migrati on Phys Exam) [facility](Epid emiology) TELE CONSULT [id number] CT (+) JAMEL DE LA O 07/19 [facility](Ep idemiol ogy) [facility](Epid emiology) OUTPATIENT [id number] ACUTE/P T JAMEL DE LA O 07/25 Released w/o Limitations [facility](Ep idemiol ogy) [facility](Immi gration Phys Exam) OUTPATIENT [id number] lower back/po ssible ortho referra l GERALD FLORES 08/10 Released with Work/Duty Limitations [facility](Im migrati on Phys Exam) [facility](Phys ical Medicine [place]) OUTPATIENT [id number] 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 DEMETRIUS LAWTON 09/02 Released w/o Limitations [facility](Ph ysical Medicin e [place]) [facility](Immi gration Phys Exam) OUTPATIENT [id number] F/U MRI GERALD FLORES 09/20 Released with Work/Duty Limitations [facility](Im migrati on Phys Exam) [facility](Immi gration Phys Exam) OUTPATIENT [id number] back pain CHAVO, MARIAM L 10/31 Released w/o Limitations [facility](Im migrati on Phys Exam) [facility](Orth opedics Spine) OUTPATIENT [id number] 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, first spine per referra l MIGNON DENISE 11/15 Released with Work/Duty Limitations [facility](Or thopedi cs Spine) [facility](Eduardo ology/Hea ring Conservat ion) OUTPATIENT [id number] Periodi STEVAN Duárn 11/18 Released w/o Limitations [facility](Au diology /Hearin g Conserv ation) [facility](Phys ical Therapy) OUTPATIENT [id number] MEB ROM for L/S Spine MAYA BECKMAN KEVIN 11/21 Released w/o Limitations [facility](Ph ysical Therapy ) [facility](Opto metry [facility]) OUTPATIENT [id number] med physica RASHAD Mcleod 11/21 Released w/o Limitations [facility](Op tometry [facility]) [facility](Immi gration Phys Exam) OUTPATIENT [id number] phase II pe (meb) ADRIÁN KHAN 11/25 Released w/o Limitations [facility](Im migrati on Phys Exam) [facility](Immi gration Phys Exam) OUTPATIENT [id number] deviate d nasal septum CANDACE CORDOVA 12/16 Released w/o Limitations [facility](Im migrati on Phys Exam) [facility](Immi gration Phys Exam) OUTPATIENT [id number] knee pain (deplet ed reflexe s) BANDAR FREED 01/19 Released w/o Limitations [facility](Im migrati on Phys Exam) [facility](Immi gration Phys Exam) OUTPATIENT [id number] referra l for sleep study SHANNAN LOPEZ 01/20 Released w/o Limitations [facility](Im migrati on Phys Exam) [facility] Abraham [facility] LUKAS Diaz(Electro Plater al Medicine) TELE CONSULT [id number] Per TDRL require SONIA Bryan 03/15 [facility] [place] [facility] LUKAS Diaz(Inte rnal Medicin e) [facility] [place] [facility] [place] OUTPATIENT [id number] TDRL SONIA SAEZ 04/10 Released w/o Limitations [place] [place] [place] [id number] ROM FOR TDRL ROM ARIZMENDI 04/10 [place]ased w/o Limitations [place] [facility] PSYCH DIAGNOSTIC EVALUATION [id number] Diagnos is: ICD-10- CM F32.A Depress ion, unspeci fied
MATA GROSS 07/03 [facility] Outpatient Encounter [id number] VANNESAADELA Mesha 07/03 [facility] Outpatient Encounter [id number] 07/03 [facility] BREATHING CAPACITY TEST [id number] Diagnos is: ICD-10- CM R06.00 Dyspnea , unspeci fied
CHETNA ARNDT E 07/03 [facility] PRO PHONE CALL 5-10 MIN [id number] Diagnos is: ICD-10- CM Z13.89 Encount er for screeni ng for other disorde r
MAIN,RENO NNE K 07/09 [facility] PSYCH DIAGNOSTIC EVALUATION [id number] Diagnos is: ICD-10- CM F90.0 Attn-de fct hyperac tivity disorde r, predom inatten tive type
MATA GROSS 07/10 [facility] OFFICE O/P EST MOD 30-39 MIN [id number] Diagnos is: ICD-10- CM J34.2 Deviate d nasal septum< br/> ALBERTO ESTRADA 07/12 [facility] PSYTX W PT 60 MINUTES [id number] [id number] Diagnos is: ICD-10- CM F33.41 Major depress vidal disorde r, recurre nt, in partial remissi on
MIRANDAJAKE A 07/17 [facility] OFFICE O/P EST LOW 20-29 MIN [id number] [id number] Diagnos is: ICD-10- CM R53.82 Chronic fatigue , unspeci fied
SSISY LEDEZMA B 07/18 [facility] PRO PHONE CALL 11-20 MIN [id number] Diagnos is: ICD-10- CM I10 Essenti al (primar y) hyperte nsion<b r/> BINA BAUMANN 07/19 [facility] IS [facility] SELF CARE MNGMENT TRAINING [id number] Diagnos is: ICD-10- CM M79.671 Pain in right foot
SANTANA STEELE 08/07 [facility] IS [facility] Outpatient Encounter [id number] 08/08 [facility] IS [facility] HC PRO PHONE CALL 5-10 MIN [id number] [id number] Diagnos is: ICD-10- CM Z13.89 Encount er for screeni ng for other disorde r
MAIN,RENO NNE K 08/20 [facility] Outpatient Encounter [id number] 08/20 [facility] OFFICE O/P EST HI 40-54 MIN [id number] [id number] Diagnos is: ICD-10- CM R53.82 Chronic fatigue , unspeci fied
LEOPOLDO GUERRERO L 09/03 [place] [facility] [place] [facility] Outpatient Encounter [id number] 09/04 [place] [facility] [place] [facility] NEUROMUSCU LAR REEDUCATIO N [id number] [id number] Diagnos is: ICD-10- CM M25.552 Pain in left hip<br/ > SANTANA STEELE L 09/04 [place] [facility] OFFICE O/P NEW LOW 30-44 MIN [id number] [id number] Diagnos is: ICD-10- CM H52.03 Hyperme tropiarobert al
YUAN DAVIS M 09/18 [facility] [place] [facility] Outpatient Encounter [id number] 09/27 [facility] OFFICE O/P NEW MOD 45-59 MIN [id number] Diagnos is: ICD-10- CM K58.2 Mixed irritab le bowel syndrom e
Sherine HOLM R 09/27 [facility] [place] [facility] Outpatient Encounter [id number] 10/08 [facility] PSYCH DIAG EVAL W/MED SRVCS [id number] Diagnos is: ICD-10- CM F41.9 Anxiety disorde r, unspeci fied
CHITIMACHA,AB IGAIL E 10/09 [place] [facility] [place] [facility] Outpatient Encounter [id number] 10/14 [place] [facility] [place] [facility] Outpatient Encounter [id number] 10/15 [place] [facility] SELF CARE MNGMENT TRAINING [id number] Diagnos is: ICD-10- CM M25.552 Pain in left hip<br/ > SANTANA STEELE L 10/16 [place] [facility] [place] [facility] OFFICE O/P EST MOD 30-39 MIN [id number] [id number] Diagnos is: ICD-10- CM R09.81 Nasal congest ion<br/ > ALBERTO ESTRADA 10/16 [place] [facility] Outpatient Encounter [id number] 10/16 [place] [facility] OFFICE O/P EST LOW 20-29 MIN [id number] [id number] Diagnos is: ICD-10- CM L70.8 Other acne
LEOPOLDO GUERRERO 10/25 [facility] Outpatient Encounter [id number] 10/28 [facility] Outpatient Encounter [id number] 11/13 [facility] Outpatient Encounter [id number] 11/18 [facility] MANUAL THERAPY 1/> [facility] [id number] Diagnos is: ICD-10- CM M25.552 Pain in left hip<br/ > SANTANA STEELE L 11/20 [facility] OFFICE O/P EST HI 40-54 MIN [id number] Diagnos is: ICD-10- CM F41.9 Anxiety disorde r, unspeci fied
CHITIMACHA,AB IGAIL E 11/28 [facility] Outpatient Encounter [id number] SHAHANA NGUYEN 12/09 [facility] Outpatient Encounter [id number] 12/11 [facility] OFFICE O/P EST LOW 20-29 MIN [id number] Diagnos is: ICD-10- CM R09.81 Nasal congest ion<br/ > JESSE BRUCE 12/13 [place] [facility] [place] [facility] Outpatient [facility]counter [id number] 12/17 [facility] [place] [facility] 1/> [facility] [id number] Diagnos is: ICD-10- CM M25.552 Pain in left hip<br/ > SANTANA STEELE 12/24 [facility] [place] [facility] Outpatient Encounter [id number] 12/26 [facility] [place] [facility] Outpatient Encounter [id number] 12/26 [facility] [place] [facility] OFFICE O/P EST MOD 30-39 MIN [id number] Diagnos is: ICD-10- CM E66.01 Morbid (severe ) obesity due to excess calorie s
LEOPOLDO GUERRERO 12/31 [facility] [place] [facility] Outpatient Encounter [id number] 01/01 [facility] [place] [facility] Outpatient Encounter [id number] 01/16 [facility] [place] [facility] OFFICE O/P EST HI 40-54 MIN [id number] Diagnos is: ICD-10- CM F41.9 Anxiety disorde r, unspeci fied
CHITIMACHA,AB IGAIL E 01/16 [facility] [place] [facility] Outpatient Encounter [id number] 01/30 [facility] [place] [facility] Outpatient Encounter [id number] 02/04 [place] [facility] OFFICE O/P EST LOW 20-29 MIN [id number] Diagnos is: ICD-10- CM F90.0 Attn-de fct hyperac tivity disorde r, predom inatten tive type
HEATHERLAURI OSEAS BrooksKajal A 02/12 [facility] [place] [facility] Outpatient Encounter [id number] 03/19 [place] [facility] [place] [facility] Outpatient Encounter [id number] 03/20 [place] [facility] [place] [facility] Outpatient Encounter [id number] 04/03 [place] [facility] [place] [facility] Outpatient Encounter [id number] 04/04 [place] [facility] [place] [facility] Outpatient Encounter [id number] SA RA Nata BRITT 04/07 [place] [facility] [place] [facility] Outpatient Encounter [id number] 04/08 [place] [facility] [place] [facility] Outpatient Encounter [id number] AMBER GANNON A 04/08 [place] [facility] [place] [facility] Outpatient Encounter [id number] 04/22 [place] [facility] [place] [facility] Outpatient Encounter [id number] 04/23 [place] [facility] [place] [facility] Outpatient Encounter [id number] 04/30 [place] [facility] [place] [facility] Outpatient Encounter [id number] 05/07 [place] [facility] [place] [facility] Outpatient Encounter [id number] 05/28 [place] [facility] [place] [facility] Outpatient Encounter [id number] 05/29 [place] [facility] [place] [facility] OFF/OP CNSLTJ NEW/EST MOD 40 [id number] Diagnos is: ICD-10- CM M54.50 Low back pain, unspeci fied
AUSTIN ISABEL 06/02 [facility] [place] [facility] QNHP OL DIG ASSMT&MGMT 11-20 [id number] Diagnos is: ICD-10- CM E66.01 Morbid (severe ) obesity due to excess calorie s
MARIA LUZ GATES 06/03 [facility] [place] [facility] Outpatient Encounter [id number] GOGO TAVERAS 06/04 [place] [facility] [place] [facility] Outpatient Encounter [id number] 06/09 [facility] [place] [facility] Outpatient Encounter [id number] 06/10 [place] [facility] [place] [facility] Outpatient Encounter [id number] 06/23 [facility] OFFICE O/P EST MOD 30 MIN [id number] Diagnos is: ICD-10- CM J34.2 Deviate d nasal septum< br/> HAMLAR,VAL ID 06/25 [place] [facility] [place] [facility] Outpatient Encounter [id number] 06/29 [place] [facility] [place] [facility] Outpatient Encounter [id number] 07/17 [place] [facility] [place] [facility] Outpatient Encounter [id number] 07/20 [place] [facility] [place] [facility] Outpatient Encounter [id number] SA RA Nata BRITT 07/20 [place] [facility] [place] [facility] Outpatient Encounter [id number] 07/21 [place] [facility] [place] [facility] Outpatient Encounter [id number] 07/21 [place] [facility] [place] [facility] HC PRO PHONE CALL 11-20 MIN [id number] Diagnos is: ICD-10- CM O09.521 Supervi ozzie of elderly multigr avida, first trimest er
SOLOMON, STEVE K 07/21 [place] [facility] [place] [facility] Outpatient Encounter [id number] 07/21 [place] [facility] [place] [facility] Outpatient Encounter [id number] Kajal MCDONALD 07/22 [place] [facility] [place] [facility] Outpatient Encounter [id number] 07/22 [place] [facility] [place] [facility] Outpatient Encounter [id number] 08/07 [place] [facility] [place] [facility] Outpatient Encounter [id number] 08/11 [place] [facility] [place] [facility] HC PRO PHONE CALL 5-10 MIN [id number] Diagnos is: ICD-10- CM O09.521 Supervi ozzie of elderly multigr avida, first trimest er
SOLOMON, STEVE K 09/04 [place] [facility] [place] [facility] HC PRO PHONE CALL 5-10 MIN [id number] Diagnos is: ICD-10- CM O09.521 Supervi ozzie of elderly multigr avida, first trimest er
SOLOMON, STEVE K 09/07 [place] [facility] [place] [facility] Outpatient Encounter [id number] 09/23 [place] [facility] [place] [facility] Outpatient Encounter [id number] 09/23 [facility] HC PRO PHONE CALL 5-10 MIN [id number] Diagnos is: ICD-10- CM O09.522 Supervi ozzie of elderly multigr avida, second trimest er
STEVE SOLOMON 10/28 [facility] [place] [facility] Outpatient Encounter [id number] 10/29 [facility] Procedures Combined list of: 1) Procedures from Department of Veterans Affairs facilities going back up to thelast 18 months, not all [place] non-surgical procedures are included; 2) All procedures from the Department of Defense facilities. Procedure Procedure Type Code Date Perfomer Comments Sourc e RANGE OF MOTION MEASUREMENTS AND REPORT (SEPARATE PROCEDURE); EACH EXTREMITY (EXCLUDING HAND) OR EACH TRUNK SECTION (SPINE) 2 [facility] EDUCATIONAL SUPPLIES, SUCH BOOKS, TAPES, AND PAMPHLETS, FOR THE PATIENT'S EDUCATION AT COST TO PHYSICIAN OR OTHER QUALIFIED HEALTH DIRECTOR SALES AND TRADE MARKETING 8 [facility] HEPATITIS A VACCINE (HEPA), ADULT DOSAGE, FOR INTRAMUSCULAR USE 8 [facility] SKIN TEST; TUBERCULOSIS, INTRADERMAL 8 [facility] PHYS/OTH QUALIFIED HEALTH DIRECTOR SALES AND TRADE MARKETING QUALIFIED,EDUCATION, TRAIN,LICENSURE/REGU LATION (WHEN APPLICABLE) EDUC SER RENDERED TO PATS IN A GRP SETTING (EG,,OBESITY ,OR DIABETIC INSTRUCT) 8 [facility] ANTHRAX VACCINE, FOR SUBCUTANEOUS OR INTRAMUSCULAR USE 9 [facility] COLLECTION OF VENOUS BLOOD BY VENIPUNCTURE 9 [facility] INDIVIDUAL PSYCHOTHERAPY, INSIGHT ORIENTED, BEHAVIOR MODIFYING AND/OR SUPPORTIVE, IN AN OFFICE OR OUTPATIENT FACILITY, APPROXIMATELY 20 TO 30 MINUTES [id number] WITH THE PATIENT 9 [facility] RANGE OF MOTION MEASUREMENTS AND REPORT (SEPARATE PROCEDURE); EACH EXTREMITY (EXCLUDING HAND) OR EACH TRUNK SECTION (SPINE) 9 [facility] SKIN TEST; TUBERCULOSIS, INTRADERMAL 9 [facility] COLLECTION OF VENOUS BLOOD BY VENIPUNCTURE 9 [facility] PSYCHIATRIC DIAGNOSTIC INTERVIEW EXAMINATION 9 [facility] AUDIOMETRIC TESTING OF GROUPS 9 [facility] APPLICATION OF A MODALITY TO 1 OR MORE AREAS; HOT OR COLD PACKS 9 [facility] APPLICATION OF A MODALITY TO 1 OR MORE AREAS; HOT OR COLD PACKS 9 [facility] SCREENING PAPANICOLAOU SMEAR; OBTAINING, PREPARING AND CONVEYANCE OF CERVICAL OR VAGINAL SMEAR TO LABORATORY 9 [facility] INDIVIDUAL PSYCHOTHERAPY, INSIGHT ORIENTED, BEHAVIOR MODIFYING AND/OR SUPPORTIVE, IN AN OFFICE OR OUTPATIENT FACILITY, APPROXIMATELY 45 TO 50 MINUTES [id number] WITH THE PATIENT 9 [facility] THERAPEUTIC PROCEDURE, 1 OR MORE AREAS, EACH 15 MINUTES; THERAPEUTIC EXERCISES TO DEVELOP STRENGTH AND ENDURANCE, RANGE OF MOTION AND FLEXIBILITY 9 [facility] SELF-CARE/HOME MANAGMENT TRAIN (EG,ACT OF DAILY LIVING (ADL) &COMPENSAT TRAIN,MEAL PREPARATION,SAFETY PROCS,AND INSTRUCT IN USE OF ASST TECHNOLOGY DEV/ADPT EQUIP) DIR ONE-ON-ONE CONT,EA 15 MINUTES 9 [facility] PSYCHIATRIC DIAGNOSTIC INTERVIEW EXAMINATION 9 [facility] INJECTION, PENICILLIN G BENZATHINE, UP TO 2,400,000 UNITS 8 [facility] THERAPEUTIC PROCEDURE, 1 OR MORE AREAS, EACH 15 MINUTES; THERAPEUTIC EXERCISES TO DEVELOP STRENGTH AND ENDURANCE, RANGE OF MOTION AND FLEXIBILITY 8 [facility] HEPATITIS A VACCINE (HEPA), ADULT DOSAGE, FOR INTRAMUSCULAR USE 8 [facility] AUDIOMETRIC TESTING OF GROUPS 8 [facility] Range Of Motion Evaluation Of Extremity Range Of Motion Evaluation Of Extremity 57703 2 ROM SALAZAR [facility] Psychotherapy Individual Approximately 30 Minutes Psychotherapy Individual Approximately 30 Minutes 87885 9 MANSOOR TOLBERT DoD Range Of Motion Evaluation Of Extremity Range Of Motion Evaluation Of Extremity 62892 9 MAYA BECKMAN [facility] Audiometry Group Testing Audiometry Group Testing 32894 9 STEVAN TAYLOR [facility] Modalities Heat Hot Packs Modalities Heat Hot Packs 05261 9 JEMMA MARTINS III DoD Physical Medicine - Group Physical Therapy Se ion Physical Medicine - Group Physical Therapy Session 90774 9 JEMMA MARTINS III [facility] Modalities Heat Hot Packs Modalities Heat Hot Packs 66205 9 [facility] Physical Medicine - Group Physical Therapy Se ion Physical Medicine - Group Physical Therapy Session 89676 9 [facility] Screening papanicolaou smear; obtaining, preparing and conveyance of cervical or vaginal smear to laboratory 9 CANDACE CORDOVA [facility] Clinical Social Work Individual Outpatient Counseling 45 Minutes Clinical Social Work Individual Outpatient Counseling 45 Minutes 75348 9 CASSIDY MONTES [facility] Physical Therapy: ___ Se ion Segments, 15 Minutes Each Physical Therapy: ___ Session Segments, 15 Minutes Each 56020 9 [facility] Modalities Heat Hot Packs Modalities Heat Hot Packs 55626 9 [facility] Physical Medicine - Group Physical Therapy Se ion Physical Medicine - Group Physical Therapy Session 57148 9 [facility] Patient Counseling Medical Management Individual Patient Patient Counseling Medical Management Individual Patient 40382 9 GERALD FLORES [facility] A e /Interv Discharge Meds Reconciled W/ Current Meds List 9 GERALD FLORES [facility] Physical Therapy Service Evaluation Physical Therapy Service Evaluation 41713 9 VICTOR HUGO LAWRENCE [facility] Phys Therapy Education Self Care Training - Per 15 Minutes Phys Therapy Education Self Care Training - Per 15 Minutes 91851 9 VICTOR HUGO LAWRENCE [facility] Psychiatric Diagnostic Evaluation Comprehensive Examination Psychiatric Diagnostic Evaluation Comprehensive Examination 40979 9 CASSIDY MONTES [facility] Patient Training And Self-Care Skills Patient Training And Self-Care Skills 70610 9 GERALD FLORES [facility] Patient Counseling Medical Management Individual Patient Patient Counseling Medical Management Individual Patient 72599 9 GERALD FLORES [facility] A e /Interv Discharge Meds Reconciled W/ Current Meds List 9 GERALD FLORES [facility] Patient Counseling Medical Management Individual Patient Patient Counseling Medical Management Individual Patient 49728 8 GERALD FLORES A e /Interv Discharge Meds Reconciled W/ Current Meds List 8 GERALD FLORES [facility] A isted Exercises For ROM Assisted Exercises For ROM 56468 8 CLARY NDIAYE [facility] Occupational Therapy Evaluation Occupational Therapy Evaluation 27269 8 CLARY NDIAYE [facility] Oropharynx Culture Streptococcus Group A Beta Hemolytic Oropharynx Culture Streptococcus Group A Beta Hemolytic 45285 8 GERALD FLORES [facility] Physician Supervised Injection Intramuscular Antibiotic Physician Supervised Injection Intramuscular Antibiotic 40898 8 GERALD FLORES [facility] Audiometry Group Testing Audiometry Group Testing 81810 8 AIME MEADE [facility] Physician Supervised Services Provision Of Educational Supplies Physician Supervised Services Provision Of Educational Supplies 78639 8 LOS HART [facility] Threshold Audiogram (Pure Tone) Threshold Audiogram (Pure Tone) 65946 8 LESLY CHRISTENSEN [facility] Audiometry Group Testing Audiometry Group Testing 20621 8 LESLY CHRISTENSEN [facility] Special Physician Services Analysis Of Computerized Data Special Physician Services Analysis Of Computerized Data 74463 8 LESLY CHRISTENSEN [facility] Physician Supervised Services Provision Of Special Supplies Physician Supervised Services Provision Of Special Supplies 67597 8 LESLY CHRISTENSEN [facility] Physician Supervised Group Educational Services 8 LESLY CHRISTENSEN Ear mold/insert, not disposable, any type 8 LESLY CHRISTENSEN [facility] Ear Protector Attenuation Measurements Ear Protector Attenuation Measurements 79226 8 LESLY CHRISTENSEN Skin Test Anergy Tuberculin Intradermal Skin Test Anergy Tuberculin Intradermal 71857 8 JOANNE TABARES [facility] Hepatitis A Vaccine Adult Dosage (Intramuscular Use) Hepatitis A Vaccine Adult Dosage (Intramuscular Use) 53621 8 VELOZGUSTAVO [facility] Vaccines Viral Polio, Inactivated Vaccines Viral Polio, Inactivated 61821 8 VELOZGUSTAVO [facility] Meningococcal Polysaccharide Vaccine Meningococcal Polysaccharide Vaccine 45430 8 VELOZGUSTAVO [facility] Immunization Administration By Injection, Each Additional Vaccine 8 HIALEAH GUSTAVO D [facility] Td Vaccine Td Vaccine 62019 8 GUSTAVO VELOZ [facility] Immunization Administration By Injection, One Vaccine Immunization Administration By Injection, One Vaccine 63260 8 GUSTAVO VELOZ [facility] Social History Combined list of available smoking, tobacco, and other social history from Department of Defense and 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 Social History Type Response Date Comment Sourc e Tobacco smoking status NHIS VA-TOBACCO FORMER USER 07/22/2023 [facility] History of tobacco use VA-TOBACCO QUIT 1 TO < 5 YRS 07/22/2023 [facility] History of tobacco use VA-TOBACCO FORMER USER 06/06/2022 [facility] History of tobacco use PREVIOUS SMOKER 11/21/2021 [facility] History of tobacco use [place] FORMER USER 09/06/2021 [facility] History of tobacco use VA-TOBACCO USER E VERY DAY 11/03/2020 [facility] History of tobacco use VA-TOBACCO USE WI 30 MIN OF WAKEUP 05/06/2018 [facility] This section is an empty social history section. [facility] Plan of Care List of future care activities from Department of 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 Additional future care activities may be listed in the Assessment and Plan section. Date/Time Care Activity Care Activity Detail Maguii ty 04/13/2024 AMBULATORY - NONE AMBULATORY - NONE [facility]
--- OUTSIDE RECORDS SUMMARY | 2023-12-26 08:58 | XMS_ITS | Encounter Summary ---
Author Organization [facility] Address [address] [place] [address] Care Team Providers Care Solar Installation Helper Name Role Phone Unavailable Primary Care Provider Unavailabl e Reason for Referral * Diagnostic Imaging Ultrasound (Routine) - Pending Review Specialty Diagnoses / Procedures Referred By Jaci algos Referred To Contact Radiology. Diagnoses related condition, antepartum Procedures [facility] US Comprehensive Single [address] [place] [address] Referral ID Status Reason Start Date Expiration Date V isits Requested Visits Authorized [id number] Pending Review 09/30/2023 09/29/2024 1 1 * Consultation (Routine: Next available opening) - Pending Review Specialty Diagnoses / Procedures Referred By Jaci lagos Referred To Contact Diagnoses related condition, antepartum [facility] [address] [place] [address] [facility] [address] [place] [address] Referral ID Status Reason Start Date Expiration Date V isits Requested Visits Authorized [id number] Pending Review 09/30/2023 09/29/2024 1 1 Question Answer Preferred Location: [facility] [place] 03/13/2024 Ultrasound Comprehensive US (>than 18 weeks GA) US PROC NONE MFM Issue OTHER (enter details in Comments) - AMA, BMI, essential (primary) hypertension. MFM MD Consultation (unrelated to Ultrasound findings): No Inflammatory Bowel Disease Clinic: Joint MFM and GI Consultation: No Chronic Kidney Disease: Joint MFM and Nephrology Consultation No Genetic Counseling Consultation: No fax [facility]; Zeinab, June; [phone] Comments There is no height or weight [...] (Latest Contact Info) Description 09/30/2023 Transcribe Orders [facility] [place] [address] [place] [id number] ZeinabJune [address] [place] [address] related condition, antepartum (Primary Dx) [...] documented as of this encounter Results * [facility] US Comprehensive Single (10/21/2023 3:30 PM [...] ? Study Date: ??10/21/2023 2:11pm Pat. NO: ??[id number] ?Referring ??MD: NICOLETTE ALVAREZ Site: ? Administrator [facility] : ??1990 ?Age: ?? [...] 10 ? oz EFW by ? Hadlock ([id number]) Head / Face / Neck Biometry: Pouncing Machine Operator ?5.8 ? mm CM ? 3.2 ? [...] view. RVOT view. LVOT view. 3-vessel view. 7-yvvycr-jbqpsjy view. Situs. Aortic arch view. Bicaval view. [...] MD - 10/21/2023 Comprehensive ----- Pat. Name: GEURLINE BARRAGAN Study Date: 10/21/2023 2:11pm Pat. NO: [id number] Referring MD: NICOLETTE ALVAREZ Site: Administrator [facility] : 1990 Age: 33 [...] EFW (lb,oz) 0 lb 10oz EFW by Marce([id number]) Head / Face / Neck Biometry: Pouncing Machine Operator 5.8mm CM 3.2mm Nasal bone 5.5mm ANATOMY ----- The following structures appear normal: Head / Neck Cranium. Head size. Head shape.Lateral ventricles. Choroid plexus. Midline falx. Cavum septi pellucidi.Cerebellum. Cisterna magna. Parenchyma. Thalami. Vermis. Neck. Nuchal fold. Face Lips. Profile. Nose. Maxilla.Mandible. Orbits. Lens. Heart / Thorax 4-chamber view. RVOT view. LVOT view.3-vessel view. 0-lsxomb-xakceyz view. Situs. Aortic arch view. Bicavalview. Ductal [...] closed. 6. Low lying placenta. June Zeinab [facility] US ORDERABLE S documented in this encounter Visit Diagnoses Diagnosis related condition, antepartum- Primary related condition, antepartum documented in this encounter
--- OUTSIDE RECORDS SUMMARY | 2023-12-26 08:58 | XMS_ITS | Clinical Summary ---
Author Organization [facility] Address [address] [place] [address] Care Team Providers Care Ceo Ziff Davis Name Role Phone No Ref-Primary, Physician Primary Care Provider Encounters Date Type Department Care Team Description 10/21/2023 2:45 PM CDT Office Visit [facility] [place] [address] [facility] [address] [place] [address] Nicolette Alvarez Phillip Neil, MD Multigravida of advanced maternal age in second trimester (Primary Dx); Obesity affecting in second trimester, unspecified obesity type; Hypertension affecting in second trimester 10/21/2023 2:06 PM CDT - 10/21/2023 11:59 PM CDT [facility] [address] [address] [place] [address] Nicolette Alvarez Phillip Neil, MD related condition, antepartum Discharge Disposition: Home or Self Care 10/21/2023 Travel 10/14/2023 PRE VISIT [facility] [address] [facility] [address] [place] [address] Stacie Archuleta RN Ultrasound (L2-AMA, BMI, Essential (primary) HTN) 09/30/2023 Transcribe Orders GENERIC EXTERNAL DATA DEPARTMENT Provider, Generic External Data Supervision of elderly multigravida, first trimester (Primary Dx) 09/30/2023 Transcribe Orders GENERIC EXTERNAL DATA DEPARTMENT Provider, Generic External Data Supervision of elderly multigravida, first trimester (Primary Dx) 09/30/2023 Transcribe Orders [facility] [place] [address] [place] [phone] AntonioJune related condition, antepartum (Primary Dx) 09/29/[address] [facility] Health Info Mgmt [address] [place], [place] [address] Scan, Non-Provider from Last 3 Months [...] DISCUSSION 08/16/2023 OBGCT (OB) 11/22/2023 COVID-19 Vaccine (2023- season) 2023 INFLUENZA VACCINE (#1) 2023 3, [...] Procedure Name Priority Date/Time Associated Diagnosis Comments [facility] US COMPREHENSIVE SINGLE Routine 10/21/2023 3:30 PM CDT related condition, antepartum from Last 3 Months Results * [facility] US Comprehensive Single (10/21/2023 3:30 PM CDT) [...] ? Study Date: ??10/21/2023 2:11pm Pat. NO: ??[id number] ?Referring ??MD: NICOLETTE ALVAREZ Site: ? Immigration Lawyer: Josep Rodriguez RDMS : ??1990 ?Age: ?? [...] lb 10 ? oz EFW by ? Marce (VUX-PB-LM-FL) Head / Face / Neck Biometry: Barrel Bung Remover And Dumper ?5.8 ? mm CM ? 3.2 ? [...] view. RVOT view. LVOT view. 3-vessel view. 5-fjraha-ugndwlm view. Situs. Aortic arch view. Bicaval view. [...] MD - 10/21/2023 Comprehensive ----- Pat. Name: GUERLIEN JACKSON Study Date: 10/21/2023 2:11pm Pat. NO: [id number] Referring MD: JUNE ANTONIO Site: Immigration Lawyer: Josep Rodriguez RDMS : 1990 Age: 33 [...] EFW (lb,oz) 0 lb 10oz EFW by Hadlock(HMN-FB-HY-FL) Head / Face / Neck Biometry: Barrel Bung Remover And Dumper 5.8mm CM 3.2mm Nasal bone 5.5mm ANATOMY ----- The following structures appear normal: Head / Neck Cranium. Head size. Head shape.Lateral ventricles. Choroid plexus. Midline falx. Cavum septi pellucidi.Cerebellum. Cisterna magna. Parenchyma. Thalami. Vermis. Neck. Nuchal fold. Face Lips. Profile. Nose. Maxilla.Mandible. Orbits. Lens. Heart / Thorax 4-chamber view. RVOT view. LVOT view.3-vessel view. 8-qfzxku-lpkjxqh view. Situs. Aortic arch view. Bicavalview. Ductal [...] closed. 6. Low lying placenta. June Antonio [facility] US ORDERABLE S from Last 3 Months Care Teams Ceo Ziff Davis Relationship Specialty Start Date End Date No Ref-Primary, Physician PCP - General 10/20/23
--- OUTSIDE RECORDS SUMMARY | 2023-12-26 08:58 | XMS_ITS | Encounter Summary ---
Author Organization [facility] Address [address] [place] [address] Care Team Providers Care Transport Coordinator Name Role Phone No Ref-Primary, Physician Primary Care Provider Reason for Referral * Diagnostic Imaging Ultrasound (Routine) - Pending Review Specialty Diagnoses / Procedures Referred By Jaci lagos Referred To Contact Radiology. Diagnoses related condition, antepartum Procedures [facility] US Comprehensive Single [facility], June [facility] [address] [facility] [place] [address] Referral ID Status Reason Start Date Expiration Date V isits Requested Visits Authorized [id number] Pending Review 09/30/2023 09/29/2024 1 1 Reason for Visit * Auth/Cert (Routine) Specialty Diagnoses / Procedures Referred By Jaci lagos Referred To Contact Radiology. Rh [facility] Ultrasound [address] [place] [address] Referral ID Status Reason Start Date Expiration Date Visits Re quested Visits Authorized [id number] 1 1 Encounter Details Date Type Department Care Team (Latest Contact Info) Description 10/21/2023 2:06 PM CDT - 10/21/2023 11:59 PM CDT Hospital Encounter [facility] [place] [address] [place] [address] Andrerogelio Nicolette [facility] [address] [place] [address] Derek Bautista MD [address] [place] [address] [address] [place] [address] related condition, antepartum Discharge Disposition: Home or [...] Procedure Name Priority Date/Time Associated Diagnosis Comments [facility] US COMPREHENSIVE SINGLE Routine 10/21/2023 3:30 PM CDT related condition, antepartum documented in this encounter Results * [facility] US Comprehensive Single (10/21/2023 3:30 PM CDT) [...] ? Study Date: ??10/21/2023 2:11pm Pat. NO: ??[id number] ?Referring ??MD: JUNE [facility] Site: ? Processor Inspector: Josep Rodriguez RDMS : ??1990 ?Age: ?? [...] 10 ? oz EFW by ? Hadlock (CAI-KL-TH-FL) Head / Face / Neck Biometry: Photographic Machine Operator ?5.8 ? mm CM ? [...] view. RVOT view. LVOT view. 3-vessel view. 6-dgdbiw-tvcdheu view. Situs. Aortic arch view. Bicaval view. [...] JACKSON Study Date: 10/21/2023 2:11pm Pat. NO: [id number] Referring MD: NICOLETTE ALVAREZ Site: Processor Inspector: Josep Rodriguez RDMS : 1990 Age: 33 [...] EFW (lb,oz) 0 lb 10oz EFW by Hadlock(OIK-SY-SH-FL) Head / Face / Neck Biometry: Photographic Machine Operator 5.8mm CM 3.2mm Nasal bone 5.5mm ANATOMY ----- The following structures appear normal: Head / Neck Cranium. Head size. Head shape.Lateral ventricles. Choroid plexus. Midline falx. Cavum septi pellucidi.Cerebellum. Cisterna magna. Parenchyma. Thalami. Vermis. Neck. Nuchal fold. Face Lips. Profile. Nose. Maxilla.Mandible. Orbits. Lens. Heart / Thorax 4-chamber view. RVOT view. LVOT view.3-vessel view. 8-oavbfi-vguejpu view. Situs. Aortic arch view. Bicavalview. Ductal [...] 6. Low lying placenta. June Zeinab BURTON [facility] US ORDERABLE S documented in this encounter Visit Diagnoses Diagnosis related condition, antepartum documented in this encounter Care Teams Transport Coordinator Relationship Specialty Start Date End Date No Ref-Primary, Physician PCP - General 10/20/23 documented as of this encounter
--- OUTSIDE RECORDS SUMMARY | 2023-12-26 08:58 | XMS_ITS | Encounter Summary ---
Author Organization [facility] Address [address] [place] [address] Care Team Providers Care Bookkeeper Name Role Phone Unavailable Primary Care Provider Unavailabl e Reason for Referral * Consultation (Routine) - Pending Review Specialty Diagnoses / Procedures Referred By Contac t Referred To Contact sales representative public utilities Diagnoses Supervision of elderly multigravida, first trimester Lonny Bui MD [facility] [place] [address] Referral ID Status Reason Start Date Expiration Date V isits Requested Visits Authorized [id number] Pending Review 09/30/2023 09/29/2024 1 1 Question Answer Is the patient being referred to [facility] by a [facility] Administration ([place]) provider? Yes Reason for Referral: Scope of Care: Physician/M.D. Have orders been placed in [facility] (imaging, labs, etc.) that need to be completed prior to the patient's consult? No Scheduling Instructions: [email or web address] will call you to coordinate your care as prescribed by your provider. If you don't hear from a medical sales representative within 2 business days, please call . Comments Referral Transcribed by external fax Provider: LONNY BUI affiliated with [facility] clinic. VA: Yes If yes was is the VA Authorization Number: [id number] Phone number: [phone] Fax number: [phone] [employer] will call you to coordinate your care as prescribed by your provider. If you don't hear from a medical sales representative within 2 business days, please [...] Type Priority Associated Diagnoses Orde r Schedule [facility] [employer] [facility] Drying Room Attendant Referral Referral Routine Supervision of elderly multigravida, first trimester Expected: 09/30/2023 (Approximate), Expires: 09/29/2024 documented as of this encounter Visit Diagnoses Diagnosis Supervision of elderly multigravida, first trimester- Primary documented in this encounter
--- OUTSIDE RECORDS SUMMARY | 2023-12-26 08:58 | XMS_ITS | Clinical Summary ---
Author Organization [facility] Address [place], [place] [address] Care Team Providers Care Repair Department Manager Name Role Phone AlejaAbiola Primary Care Provider [phone] Allergies No known active allergies Medications Medication Sig Dispensed Refills Start Date End Date Status NIFEdipine ER (ADALAT CC) 30 mg extended-Release tablet Take 1 Tablet by mouth once daily. 07/19/2022 Active famotidine (PEPCID) 20 mg tabletIndications:Ga stroesophageal reflux disease, unspecified whether esophagitis present Take 1 Tablet (20 mg) by mouth two times daily. 60 Tablet 07/17/2023 Active Hdjnzkmw-Bs-Ipw-Fe-F A tab tabletIndications:Va ginal bleeding in Take [...] 08/06/23, provider advised to discuss with her [place] [employer] provider) Chronic fatigue 05/07/2016 Overview (09/09/2017): 09/09/2017: Cardiology evaluation. Benign palpitations. Vitamin D deficiency 10/30/2012 Overview (06/20/2017): VITAMIN D TOTAL Date Value Ref Range Status 06/19/2017 22.9 (L) 30.0 - 80.0 ng/mL Final 10/17/2015 30.1 30.0 - 80.0 ng/mL Final 10/29/2012 18.4 (L) 30.0 - 80.0 ng/mL Final 06/20/2017: [place] 46634 IU twice weekly x8 weeks, vit d [...] Bottle feeding. GBS - neg Guerline Jackson [[id number]] GEOVANY 12/30/2011 (05/02/11 to present) [facility] Date: [birth year] Age (as of 08/12/11): 21 Race/Ethnicity: Not /Not History: Estimated Date of Delivery: 12/30/11 Gestational Age: 20w0d Blood Type: O Rh Positive Patient Address Address Home Phone Email [address] [phone] [email or web address] [place] [address] Patient Background Race/Ethnicity Marital Status Not /Not [...] safety in , and recommended care. Reviewed [facility]'s Preparing for Class Schedule. 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 Progress Notes (Episode) 07/22/2011 GA: 17w0d Doing much better today. Was seen on 07/18 for abdominal tightening/cramping. Now is back to normal. Ultrasound was fine on Friday. Declines quad screen today. No movement yet. No bleeding. Feeling well otherwise PLAN: -- Follow up in 3 weeks -- 20 week ultrasound around that time. -- Ilpv-hf-ugpp for chlamydia today Lary Aguilera MD .................... [...] 7. Baby's care provider (Please use notes), [facility] / Rooming in, Circumcision 8. Brochures [...] screen, but probably not -- Will need juho-cx-azcd for chlamydia next month. 06/04/2011 10w1d First [...] Travel 11/27/2023 2:00 PM CDT Office Visit [facility] [address] [facility] [place] [address] Moe Mendez NP UTI (patient presents with burning upon urination and she states that it feels like she isn't fully emptying her bladder- symptoms began 1 week ago. patient is 25 weeks ) 11/27/2023 Travel 11/25/2023 4:05 PM CDT Office Visit [facility] [address] [facility] [place] [address] Monica Reyes PA Derm Problem (wart between rectum and vagina) 11/25/2023 Travel 11/11/2023 Nurse Triage [facility] [address] [facility] [place] [address] Abiola Masterson DO Results 10/30/2023 Telephone [facility] [address] [facility] [place] [address] Monica Reyes PA Follow Up 10/29/2023 2:00 PM CDT Office Visit [facility] [address] [facility] [place] [address] Monica Reyes PA Derm Problem (skin tag on inner upper right side) 10/29/2023 Travel 10/08/2023 4:00 PM CDT Office Visit [facility] [address] [facility] [place] [address] Abiola Masterson DO Breathing Problem (Breathing concerns for a little over two years since she stopped smoking. ) 10/08/2023 Travel from Last 3 Months Immunizations Name Administration [...] 9 9 Chris Matute Delivery Location:[facility] Comments:Prolonged sec ond stage Current Last [...] st Contact Info) Description 04/14/2024 2:30 PM FIELD CLINICAL ENGINEER Telemedicine [facility] [address] [place] [phone] Valencia Barraza PA [address] [place] [address] Health Maintenance Due Date Last Done Comments [...] 2:01 PM CDT Vaginal pain Urethritis, nonspecific BLISTER PACK OPERATOR THIN PREP PAP SCREEN IMAGED Routine 05/29/2023 3:02 PM FIELD CLINICAL ENGINEER Screening for malignant neoplasm of cervix ANTI HIV 1/2 Routine 12/27/2019 4:02 PM CDT Screening examination for venereal disease ANTI HCV Routine 12/27/2019 4:02 PM CDT Screening examination for venereal disease from Last 3 Months or Most Recently Relevant to Health Maintenance Results * URINE CULTURE (11/27/2023 2:01 PM CDT) CULTURE 10-50,000 CFU/mL of multiple organisms, probable contaminants 11/28/2023 5:41 PM CDT [facility] TRA LABORATORY Urine URINE SPECIMEN / Unknown Non-Blood / Unknown 11/27/2023 2:01 PM CDT 11/27/2023 2:01 PM CDT Moe Block Araceliharshad EMILY MICROBIOLOGY [facility]AL LAB[facility]ATORY [address] [place] [address], [place] * (ABNORMAL) UA W/ SEDIMENT EXAM REFLEXED PER CRITERIA (11/27/2023 2:01 PM CDT) COLOR Yellow Yellow Color 11/27/2023 2:07 PM CDT [facility] [place] [employer] CLARITY Clear Clear Clarity 11/27/2023 2:07 PM CDT [facility] DARRION SPECIFIC GRAVITY,URINE >=1.030(A) 1.010, 1.015, 1.020, 1.025 11/27/2023 2:07 PM CDT [facility] PH,URINE 6.0 6.0, 7.0, 8.0, 5.5, 6.5, 7.5, 8.5 11/27/2023 2:07 PM CDT [facility] UROBILINOGEN, QUALITATIVE Normal Normal EU/dl 11/27/2023 2:07 PM CDT [facility] PROTEIN, URINE Trace(A) Negative mg/dL 11/27/2023 2:07 PM CDT [facility] GLUCOSE, URINE Negative Negative mg/dL 11/27/2023 2:07 PM CDT [facility] KETONES,URINE Negative Negative mg/dL 11/27/2023 2:07 PM CDT [facility] BILIRUBIN,URI NE Negative Negative 11/27/2023 2:07 PM CDT [facility] OCCULT BLOOD,URINE Negative Negative 11/27/2023 2:07 PM CDT [facility] NITRITE Negative Negative 11/27/2023 2:07 PM CDT [facility] LEUKOCYTE ESTERASE Negative Negative 11/27/2023 2:07 PM CDT [facility] Urine URINE SPECIMEN / Unknown Non-Blood / Unknown 11/27/2023 2:01 PM CDT 11/27/2023 2:01 PM CDT Moe Mendez DEPUTY SHERIFF CHIEF URINE [place] [address] [place] [address], * (ABNORMAL) BLISTER PACK OPERATOR THIN PREP PAP SCREEN IMAGED [[id number]] (05/29/2023 3:02 PM FIELD CLINICAL ENGINEER) Case Report Gynecologic Cytology Report ? Case: [id number] ? Authorizing Provider: ??Abiola Masterson DO ?Collected: ? 05/29/2023 1502 ? Ordering Location: ? [facility] ? Received: ?05/29/2023 1537 ? Clinic ? First Screen: ?Maurisio, Jere ? Pathologist: ? Sonia Nolasco ? MD Eloisa ? Specimen: ?BLISTER PACK OPERATOR ThinPrep Vial Screening, Cervical ? 06/06/2023 4:27 PM [facility]AL LAB[facility] INTERPRETATION/ RESULT ATYPICAL SQUAMOUS CELLS OF UNDETERMINED SIGNIFICANCE (ASCUS)(A) (none) 06/06/2023 4:27 PM [facility] IMEN ADEQUACY Satisfactory for evaluation Endocervical component present 06/06/2023 4:27 PM FIELD CLINICAL ENGINEER [facility] ENTRAL LABORATORY HPV REQUEST HPV and PAP 06/06/2023 4:27 PM FIELD CLINICAL ENGINEER [facility] ENTRAL LABORATORY Date of LMP unknown 06/06/2023 4:27 PM FIELD CLINICAL ENGINEER [facility] ENTRAL LABORATORY Last Pap Date 12/27/19 06/06/2023 4:27 PM [facility] Last Pap Result LSIL 4:27 PM FIELD CLINICAL ENGINEER [facility] ENTRAL LABORATORY Abnormal Pap or [place] Bx in last 5 years Yes 06/06/2023 4:27 PM [facility] LAB[facility] Menstrual Status Irregular Periods 06/06/2023 4:27 PM [facility] [place] Bx Done Today No 06/06/2023 4:27 PM [facility] Additional Information None given 06/06/2023 4:27 PM [facility] LAB[facility] Comment: Cytology is screened at [facility] Laboratory - [address], [place] [address] and [facility] Laboratory - [address], [place] [address] and [facility] - [address] [place] [address] Interpreted at [facility] - [address], [place] [address] Automated Review Successful 06/06/2023 4:27 PM FIELD CLINICAL ENGINEER [facility] ENTRND LABORATORY Comment:Specimen processed s uccessfully by automated unit clerk device, ThinPrep Imaging System, [employer] ANCILLARY TESTING BLISTER PACK OPERATOR HPV Ordered, Please see separate report 06/06/2023 4:27 PM FIELD CLINICAL ENGINEER [facility] Note The pap test is [...] pre-malignant and malignant lesions. 06/06/2023 4:27 PM FIELD CLINICAL ENGINEER [facility] ENTRND LABORATORY Other (Cervical) Non-Blood / Unknown 05/29/2023 3:02 PM FIELD CLINICAL ENGINEER 05/29/2023 3:37 PM FIELD CLINICAL ENGINEER Abiola Masterson DO PATHOLOGY/CYTOLOGY [facility] [address] [place] [address], * ANTI HCV (12/27/2019 4:02 PM CDT) HEPATITIS C ANTIBODY Non-React vidal Non-React vidal 12/28/2019 3:55 PM CDT [facility] TRAL LABORATORY Comment:Antibodies to HCV no t detected; does not exclude the possibility of exposure to HCV. Blood BLOOD SPECIMEN / Unknown Butterfly / Unknown 12/27/2019 4:02 PM CDT 12/27/2019 4:06 PM CDT Yanet Oliva MD SEND OUTS [facility]OR[facility]-CENTRAL LABORATORY [address] [place] [address], * ANTI HIV 1/2 (12/27/2019 4:02 PM CDT) HIV-1/HIV-2 ANTIBODY Non-Reacti ve Non-Reacti ve 12/28/2019 3:52 PM CDT [facility]-[place] TRAL LABORATORY Comment:HIV-1 p24 and HIV-1/ HIV-2 Ab not detected. Blood BLOOD SPECIMEN / Unknown Butterfly / Unknown 12/27/2019 4:02 PM CDT 12/27/2019 4:06 PM CDT Yanet Oliva MD SEND OUTS [facility] LABORATORY [address] [place] [address], from Last 3 Months or Most Recently Relevant to Health Maintenance Advance Directives * Full Code (Latest Code [...] 8:21 PM 12/28/2011 11:54 PM Care Teams Repair Department Manager Relationship Specialty Start Date End Date Abiola Masterson DO [address] [place] [address] PCP - General Family Practice 04/14/23
--- OUTSIDE RECORDS SUMMARY | 2023-12-26 08:58 | XMS_ITS | Clinical Summary ---
Author Organization [facility] Address [address] [place] [address] Care Team Providers Care Senior Contract Specialist Name Role Phone Unavailable Primary Care Provider [...] for each transition of care or referral. [facility] Social History Tobacco Use Types Packs/Day Years [...] this topic Kailey Jackson Personal/Family Self 1990 [address] [place] [address] Kailey Jackson Workers Comp Self 1990 [address] [place] [address]
--- OUTSIDE RECORDS SUMMARY | 2023-12-26 08:58 | XMS_ITS | Encounter Summary ---
Author Organization [facility] Address [address] [place] [address] Care Team Providers Care Lift Operator Name Role Phone Unavailable Primary Care Provider Unavailabl e Reason for Visit * Reason Comments Ultrasound L2-AMA, BMI, Essenti al (primary) HTN Encounter Details Date Type Department Care Team (Late st Contact Info) Description 10/14/2023 PRE VISIT [facility] [place] [address] [facility] [address] [place] [address] Stacie Archuleta RN Ultrasound (L2-AMA, [...]
--- OUTSIDE RECORDS SUMMARY | 2023-12-26 08:58 | XMS_ITS | Clinical Summary ---
Author Organization [facility] Address [address] [place] [address] Care Team Providers Care Supervisor Dried Yeast Name Role Phone Unavailable Primary Care Provider Unavailabl e Source Comments Patient records contain information from all sites at [facility]. For routine questions regarding patient records, call [phone] during business hours, M-F 8:00 AM - 5:00 PM Central Time. Record requests for emergency care only can be directed to [phone] at any time.[facility] Allergies No known active allergies Medications Medication [...] [place]. His first baby! She is moving [facility] during the (likely summertime) Problem Noted Date [...] consult. She is very likely moving to [facility], and will be transferring her care closer [...] drink = 0.6 oz pur e alcohol) [facility] Utilities Answer Date Recorded In [...] Care Plan for Healthy No Support, [facility] - Nicotine Dependency Chronic Care Plan [facility] [...] S Negative Negative 08/14/2023 10:25 AM CDT [facility] Comment: Consumption of high-dose biotin supplement within 12 hours of blood collection for this test can cause false-negative results. Blood (Blood, Venous) 08/13/2023 4:52 PM CDT 08/14/2023 7:24 AM CDT Loreta Ramirez APRN, C.N.P. LAB MICROBIOLO GY - BLOOD ORDERABLES [facility] [address] [place] [address] [facility] [address] [place] [address] * HIV-1/-2 Ag and Ab Scrn, Plasma [...] C.N.P. LAB MICROBIOLO GY - BLOOD ORDERABLES [facility] [address] [place] [address], [facility] ECLR [facility] in [address] [address] from Last 3 Months or Most Recently Relevant to Health Maintenance Additional Health Concerns Active Problems Noted Date Diagnosed Date [facility] Care Plan for Healthy 08/30
--- OUTSIDE RECORDS SUMMARY | 2023-12-26 08:58 | XMS_ITS | Referral Summary ---
Author Organization [facility] Address [address] [place] [address] Care Team Providers Care International Marketing Specialist Name Role Phone No Ref-Primary, Physician Primary Care Provider Encounters Date Type Department Care Team Description 10/21/2023 Travel 10/21/2023 2:45 PM CDT Office Visit [facility] [address] [place] [address] Nicolette Alvarez Phillip Neil, MD Multigravida of advanced maternal age in second trimester (Primary Dx); Obesity affecting in second trimester, unspecified obesity type; Hypertension affecting in second trimester 10/21/2023 2:06 PM CDT - 10/21/2023 11:59 PM CDT Hospital Encounter [facility] [address] [place] [address] Nicolette Alvarez Phillip Neil, MD related condition, antepartum Discharge Disposition: Home or Self Care 10/14/2023 PRE VISIT [facility] [address] [place] [address] Stacie Archuleta RN Ultrasound (L2-AMA, BMI, Essential (primary) HTN) 09/30/2023 Transcribe Orders GENERIC EXTERNAL DATA DEPARTMENT Provider, Generic External Data Supervision of elderly multigravida, first trimester (Primary Dx) 09/30/2023 Transcribe Orders GENERIC EXTERNAL DATA DEPARTMENT Provider, Generic External Data Supervision of elderly multigravida, first trimester (Primary Dx) 09/30/2023 Transcribe Orders [facility] [place] [address] [place] [address] AntonioJune related condition, antepartum (Primary Dx) 09/29/2023 Medical Correspondence [facility] Health Info Mgmt Srvcs [address] [address] Scan, Non-Provider from Last 3 Months [...] Procedure Name Priority Date/Time Associated Diagnosis Comments [facility] US COMPREHENSIVE SINGLE Routine 10/21/2023 3:30 PM CDT related condition, antepartum from Last 3 Months Results * [facility] US Comprehensive Single (10/21/2023 3:30 PM [...] ? Study Date: ??10/21/2023 2:11pm Pat. NO: ??[id number] ?Referring ??MD: JUNE ANTONIO Site: ? Returns Clerk: Josep Rodriguez RDMS : ??1990 ?Age: ?? [...] 10 ? oz EFW by ? Hadlock ([id number]) Head / Face / Neck Biometry: Boiler Control Technician ?5.8 ? mm CM ? 3.2 ? [...] view. RVOT view. LVOT view. 3-vessel view. 7-hhmmel-uszjygy view. Situs. Aortic arch view. Bicaval view. [...] JACKSON Study Date: 10/21/2023 2:11pm Pat. NO: [id number] Referring MD: NICOLETTE ALVAREZ Site: Returns Clerk: Josep Rodriguez RDMS : 1990 Age: 33 ----- INDICATION ----- Advanced Maternal Age BMI 50 METHOD ----- Transabdominal and transvaginal ultrasound approaches were used.(Transvaginal ultrasound examination was required to adequately completethe exam.). View: Sufficient ----- Canales . Number of fetuses: 1 DATING ----- DateDetailsGest. age GEOAVNY LMPCycle: LMP date not known Previous U/S [...] EFW (lb,oz) 0 lb 10oz EFW by Hadlock([id number]) Head / Face / Neck Biometry: Boiler Control Technician 5.8mm CM 3.2mm Nasal bone 5.5mm ANATOMY ----- The following structures appear normal: Head / Neck Cranium. Head size. Head shape.Lateral ventricles. Choroid plexus. Midline falx. Cavum septi pellucidi.Cerebellum. Cisterna magna. Parenchyma. Thalami. Vermis. Neck. Nuchal fold. Face Lips. Profile. Nose. Maxilla.Mandible. Orbits. Lens. Heart / Thorax 4-chamber view. RVOT view. LVOT view.3-vessel view. 7-csikom-nawedno view. Situs. Aortic arch view. Bicavalview. Ductal [...] closed. 6. Low lying placenta. June Antonio [facility] US ORDERABLE S from Last 3 Months Care Teams International Marketing Specialist Relationship Specialty Start Date End Date No Ref-Primary, Physician PCP - General 10/20/23
--- OUTSIDE RECORDS SUMMARY | 2023-12-26 08:58 | XMS_ITS | Encounter Summary ---
Author Organization [facility] Address [address] [place] [address] Care Team Providers Care Bank And Savings Securities Trader Name Role Phone No Ref-Primary, Physician Primary [...] on filedocumented in this encounter Care Teams Bank And Savings Securities Trader Relationship Specialty Start Date End Date No Ref-Primary, Physician PCP - General 10/20/23 documented as of this encounter
--- OUTSIDE RECORDS SUMMARY | 2023-12-26 08:58 | XMS_ITS | Encounter Summary ---
Author Organization [facility] Address [address] [place] [address]. [place] [address] Care Team Providers Care Flitch Hanger Name Role Phone Unavailable Primary Care Provider Unavailabl e Encounter Details Date Type Department Care Team (Late st Contact Info) Description 09/24/2023 Medical Correspondence [facility] Info Mgmt Srvcs [address] [place] [address] Scan, Non-Provider Social History Tobacco [...]
--- OUTSIDE RECORDS SUMMARY | 2023-12-26 08:58 | XMS_ITS | Encounter Summary ---
Author Organization [facility] Address [address] [place] [address] Care Team Providers Care Category Specialist Name Role Phone Unavailable Primary Care Provider Unavailabl e Reason for Referral * Consultation (Routine: Next available opening) - Pending Review Specialty Diagnoses / Procedures Referred By Jaci lagos Referred To Contact egyptologist Diagnoses Supervision of elderly multigravida, first trimester Jamia Reyes MD [facility] [place] [address] Referral ID Status Reason Start Date Expiration Date V isits Requested Visits Authorized [id number] Pending Review 09/30/2023 09/29/2024 1 1 Question Answer Is the patient being referred to Workers' Compensation Magistrate by a [facility] ([place] provider? Yes Reason for Referral: Have orders been placed in [facility] (imaging, labs, etc.) that need to be completed prior to the patient's consult? No Scheduling Instructions: [facility] will call you to coordinate your care as prescribed by your provider. If you don't hear from a cordage sales representative within 2 business days, please call . Additional Information: Retranscribed per Nurse Navigator request, referred by Dr Jamia Reyes with [facility] for Supervision of elderly multigravida, first trimester Comments Retranscribed per Nurse Navigator request, referred by Dr Jamia Reyes with [facility]: Yes If yes was is the [facility] Authorization Number: [id number] Phone number: [phone] Fax number: [phone] Please be aware that coverage of these services is subject to the terms and limitations of your health insurance plan. Call member services at your health plan with any benefit or coverage questions. [facility] will call you to coordinate your care as prescribed by your provider. If you don't hear from a cordage sales representative within 2 business days, please [...] Type Priority Associated Diagnoses Orde r Schedule Workers' Compensation Magistrate Manager Of Digital Referral Referral Routine: Next available opening Supervision of elderly multigravida, first trimester Ordered: 09/30/2023 documented as of this encounter Visit Diagnoses Diagnosis Supervision of elderly multigravida, first trimester- Primary documented in this encounter
--- OUTSIDE RECORDS SUMMARY | 2023-12-26 08:58 | XMS_ITS | Encounter Summary ---
Author Organization [facility] Address [address] [facility] [place] [address] Care Team Providers Care Kidney Trimmer Name Role Phone No Ref-Primary, Physician Primary Care Provider Reason for Visit * Reason Comments Ultrasound L2-AMA, BMI, HTN Encounter Details Date Type Department Care Team (Late st Contact Info) Description 10/21/2023 2:45 PM CDT Office Visit [facility] [place] [address] [place] [address] [facility] [address] [facility], [place] [id number] Derek Bautista MD [address] [place] [address] Multigravida of advanced maternal age [...] for details of today's US at the [facility]. Derek Bautista MD Maternal- Medicine documented in this encounter Nursing Notes * Stacie Archuleta, RN - 10/21/2023 2:45 PM CDT Patient presents to [facility] for L2 at 19w3d due to AMA, BMI, HTN. Denies LOF, vaginal bleeding or cramping/contractions. SBAR given to [facility] MD, see their note in Epic. documented in this encounter Plan of Treatment Not on file documented as of this encounter Visit Diagnoses Diagnosis Multigravida of advanced maternal age in second trimester- Primary Obesity affecting in second trimester, unspecified obesity type Hypertension affecting in second trimester documented in this encounter Care Teams Kidney Trimmer Relationship Specialty Start Date End Date No Ref-Primary, Physician PCP - General 10/20/23 documented as of this encounter
--- OUTSIDE RECORDS SUMMARY | 2023-12-26 08:58 | XMS_ITS | Encounter Summary ---
Author Organization [facility] Address [address] [place] [address]. [place] [address] Care Team Providers Care Editor Dictionary Name Role Phone Unavailable Primary Care Provider Unavailabl e Encounter Details Date Type Department Care Team (Late st Contact Info) Description 09/29/2023 Medical Correspondence [facility] Info Mgmt Srvcs [address] [place] [address] Scan, Non-Provider Social History Tobacco [...]
--- OUTSIDE RECORDS SUMMARY | 2023-12-26 08:59 | XMS_ITS | Referral Summary ---
Author Organization [facility] Address [address] [place] [address] Care Team Providers Care Necktie Turner Name Role Phone Unavailable Primary Care Provider Unavailabl e Source Comments Patient records contain information from all sites at [facility]. For routine questions regarding patient records, call [phone] during business hours, M-F 8:00 AM - 5:00 PM Central Time. Record requests for emergency care only can be directed to [phone] at any time.[facility] Allergies No known active allergies Medications Medication [...] [place]. His first baby! She is moving [facility] during the (likely summertime) Problem Noted Date Diagnosed Date Complication Morbid Obesity Body Mass Index Greater Than 40 08/13/2023 Body Mass Index 50.0 To 59.9 Adult 08/13/2023 Elderly Multigravida Greater Than 35 Y ear Old 08/13/2023 Overview (08/13/2023): Desires NIP Panorama, scheduled 08/20/23 Preexisting Hypertension 08/13/2023 Overview (08/13/2023): Baseline preeclampsia labs collected [facility] Will begin 81 mg ASA at 12 weeks Depression Anxiety 08/13/2023 High Risk 08/13/2023 Overview (08/13/2023): BMI >50 Chronic HTN Elderly multigravida Anxiety/depression We discussed advanced level US, MFM consult. She is very likely moving to [facility], and will be transferring her care closer [...] drink = 0.6 oz pur e alcohol) [facility] Utilities Answer Date Recorded In the past 12 months has e [employer], gas, oil, or water [employer] threatened to shut off services in your [...] Type Associated Problems Recent Progress Patient-Stated? Author [facility] Care Plan for Healthy Care Plan [facility] Care Plan for Healthy No Support, [facility] - Nicotine Dependency Chronic Care Plan [facility] Care Plan for Healthy No Support, [employer] [...] S Negative Negative 08/14/2023 10:25 AM CDT [facility] Comment: Consumption of high-dose biotin supplement within 12 hours of blood collection for this test can cause false-negative results. Blood (Blood, Venous) 08/13/2023 4:52 PM CDT 08/14/2023 7:24 AM CDT Loreta Ramirez APRN C.N.P. LAB MICROBIOLO GY - BLOOD ORDERABLES [facility] [address] [place] [address] [facility]ly [facility] [address] [place] [address] * HIV-1/-2 Ag and Ab Scrn, Plasma [...] APRN.N.P. LAB MICROBIOLO GY - BLOOD ORDERABLES [facility] [address] [place] [address], [place] ECLR [facility] in [place] [address] [place] [address] from Last 3 Months or Most Recently Relevant to Health Maintenance Additional Health Concerns Active Problems Noted Date Diagnosed Date [facility] Care Plan for Healthy 08/30
--- OUTSIDE RECORDS SUMMARY | 2023-12-26 08:59 | XMS_ITS | Encounter Summary ---
Author Organization [facility] Address [address] [place] [address] Care Team Providers Care Pruner Name Role Phone Unavailable Primary Care Provider Unavailabl e Reason for Visit * Reason Onset Date Comments Results 09/02/2023 Panorama Prenata l Screen Encounter Details Date Type Department Care Team (Latest Contact Info) Description 09/02/2023 Clinical Communication Department of Obstetrics and Gynecology in [place], [place] [address] [place] [address] Loreta Ramirez, TREVOR, C.N.P. [address] [place] [address] Results (Panorama Screen ) Social History Tobacco Use Types Packs/Day Years Used Date Smoking Tobacco: Former Cigarettes 2 006 - 05/03/2021 Smokeless Tobacco: Never Comments:Started at age 15, quit in 2021 Alcohol Use Standard Drinks/Week Comments Not Currently 0 (1 standard drink = 0.6 oz pur e alcohol) [facility] Utilities Answer Date Recorded In [...]
--- OUTSIDE RECORDS SUMMARY | 2023-12-26 08:59 | XMS_ITS ---
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 Procedure Estimated Blood Loss Check Surgery Details section. Procedure Findings Check Surgery Details section. Procedure Specimens Taken Check Surgery Details section.
== END 2023-12-26 08:41 | disposition home or self-care (01) ==
PROVIDERS: Visit Provider Obstetrics & Gynecology
DX: Z34.83 Encounter for supervision of other normal pregnancy, third trimester (principal)
CPT/HCPCS: 82565; 82570; 84156; 84450; 84460; 84520

== ENCOUNTER 2024-01-21 13:54 | Outpatient (CLI) | payer OTHER, MEDICAID, SELFPAY ==
--- OUTSIDE RECORDS SUMMARY | 2024-01-21 13:56 | XMS_ITS | Continuity of Care Document ---
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 Role Phone [facility] Unavailable Unavailable Problems [...] DoD obesity Active Condition DoD visit for: [facility] physical medical evaluation board (MEB) Inactive Condition [...] For Vaccination Against Bacterial Diseases Inactive Condition DoD Anxiety Active Condition [facility] Attention deficit hyperactivity disorder, predominantly inattentive type Active Condition [facility] Cancer cervix screening status Active Condition Nov 21 Entered By: MAILE RAZA Comment: No hx [facility] 2-3Aug 2021 Entered By: MAILE RAZA Comment: 12/07/20 Colposcopy neg/ECC negAug 2021 Entered By: MAILE RAZA Comment: 11/15/21 PAP NILM/HPV neg. Next co-test due in 3 years (10/2024). [facility] Fatigue Active Condition [facility] Major depressive disorder Active Condition [facility] Nasal congestion Active Condition [facility] ELENOMae [facility] White blood cell count abnormal Active Condition Nov 08, 2020 Entered By: MAILE RAZA Comment: chronic, peripheral smear done 10/2020 [facility] Diagnosis: ICD-10-CM O09.523 Supervision of elderly multigravida, third trimester Active Diagnosis [facility] Diagnosis: ICD-10-CM O09.522 Supervision of elderly multigravida, second trimester Active Diagnosis ARTURO MALAGON [facility] Diagnosis: ICD-10-CM O09.521 Supervision of elderly multigravida, first trimester Active Diagnosis [facility] Diagnosis: ICD-10-CM J34.2 Deviated nasal septum Active Diagnosis [facility] Diagnosis: ICD-10-CM E66.01 Morbid (severe) obesity due to excess calories Active Diagnosis [facility] Diagnosis: ICD-10-CM M54.50 Low back pain, unspecified Active Diagnosis [facility] Diagnosis: ICD-10-CM F90.0 Attn-defct hyperactivity disorder, predom inattentive type Active Diagnosis [facility] Diagnosis: ICD-10-CM F41.9 Anxiety disorder, unspecified Active Diagnosis [facility] Diagnosis: ICD-10-CM M25.552 Pain in left hip Active Diagnosis [facility] Diagnosis: ICD-10-CM R09.81 Nasal congestion Active Diagnosis [facility] Diagnosis: ICD-10-CM L70.8 Other acne Active Diagnosis [facility] Diagnosis: ICD-10-CM K58.2 Mixed irritable bowel syndrome Active Diagnosis [facility] Diagnosis: ICD-10-CM H52.03 Hypermetropia, bilateral Active Diagnosis [facility] Diagnosis: ICD-10-CM R53.82 Chronic fatigue, unspecified Active Diagnosis [facility] Diagnosis: ICD-10-CM Z13.89 Encounter for screening for other disorder Active Diagnosis [facility] Diagnosis: ICD-10-CM M79.671 Pain in right foot Active [facility] Medications Combined list of outpatient medications from Department of Defense and [facility] Affairs facilities.Medications provided include 1) outpatient medications from the last 15 months, and 2) patient-reported medications. Medication Details Route Status Patient Instructions Prescription Expires Prescription Number Last Dispense Date Ordering Provider Order Date Order Qty Source ALBUTEROL 90MCG/ACTUA T (CFC-F) INHL,ORAL,8 .5GM DOSE COUNTER INHALE ONE TO TWO PUFFS BY MOUTH EVERY 4 HOURS NEEDED FOR SHORTNES S OF BREATH OR WHEEZING RESPIR ATORY (INHAL ATION) 11/07/2023 [id number] ALBERTO MCLAUGHLIN [address] [facility] BISACODYL 5MG TAB,EC TAKE TWO TABLETS BY MOUTH ONCE FOR COLON PREP ORAL 12/13/2022 [id number] GERRY HOLM [address] [facility] CICLOPIROX 8% SOLN,TOP APPLY THIN FILM TOPICALL Y EVERY DAY FOR FUNGAL NAIL INFECTIO N -- USE UNTIL RESOLUTI ON OR 48 WEEKS TOPICA L 01/01/2024 [id number] 3 LEOPOLDO GUERRERO [address] [facility] FLUCONAZOLE 150MG TAB TAKE ONE TABLET BY MOUTH ONCE FOR ONE DOSE ORAL DISCONT INUED 06/13/2023 [id number] 4 Bonny FELIPE [address] [facility] IMIQUIMOD 5% CREAM,TOP,P KT,0.25GM APPLY 1 PACKET TOPICALL Y FRIDAY, Y AND FRIDAY AT BEDTIME LEAVE ON SKIN FOR 8 HOURS. DO NOT USE WHILE TOPICA L ACTIVE 10/30/2024 [id number] 4 FB-HRDLIC JAH SMITH Angy 2023 24 [facility] METRONIDAZO LE 500MG TAB TAKE ONE TABLET BY MOUTH TWICE A DAY FOR 7 DAYS ORAL DISCONT INUED 06/13/2023 [id number] 4 Bonny FELIPE 2023 14 [facility] MODAFINIL 200MG TAB TAKE ONE AND ONE-HALF TABLETS BY MOUTH EVERY MORNING FOR MOOD, ENERGY ORAL DISCONT INUED BY PROVIDE R 05/31/2023 [id number] 4 PENOBSCOT,A BIGAIL E 2022 45 [facility] MODAFINIL 200MG TAB TAKE ONE TABLET BY MOUTH EVERY MORNING FOR MOOD, ENERGY FOR ENERGY, FOCUS, MOOD ORAL DISCONT INUED (EDIT) 05/16/2023 [id number] 3 PENOBSCOT,A BIGAIL E 2022 30 [facility] MULTIVITAMI NS W/MINERALS, CAP/TAB TAKE 1 TABLET BY MOUTH EVERY DAY FOR SUPPLEME NT ORAL ACTIVE 08/07/2024 [id number] 4 BINA BAI 2023 100 [facility] MULTIVITAMI NS W/MINERALS, CAP/TAB TAKE 1 TABLET BY MOUTH EVERY DAY FOR SUPPLEME NT ORAL DISCONT INUED 07/20/2023 [id number] 3 BINA BAI 2022 100 [facility] NIFEDIPINE (EQV-CC) 30MG TAB,SA TAKE ONE TABLET BY MOUTH EVERY DAY FOR BLOOD PRESSURE ORAL ACTIVE 08/07/2024 [id number] 4 BINA BAI 2023 90 [facility] NIFEDIPINE (EQV-CC) 30MG TAB,SA TAKE ONE TABLET BY MOUTH EVERY DAY FOR BLOOD PRESSURE ORAL DISCONT INUED 07/20/2023 [id number] 4 BINA BAI R [address] [facility] OMEPRAZOLE 20MG CAP,EC TAKE TWO CAPSULES BY MOUTH EVERY DAY BEFORE A MEAL ORAL DISCONT INUED 08/15/2023 [id number] 4 FB-IMANI BENNETT W [address] [facility] PEG-3350/EL ECTROLYTES PWDR TAKE ONE AND ONE-HALF CONTAINE RS BY MOUTH DIRECTED FOR COLON PREP ORAL 12/13/2022 [id number] 3 GERRY HOLM R [address] [facility] VENLAFAXINE HCL 150MG 24HR CAP,SA TAKE ONE CAPSULE BY MOUTH EVERY DAY FOR ANXIETY, PAIN ORAL DISCONT INUED BY PROVIDE R 01/17/2024 [id number] 4 PENOBSCOT,A BIGAIL E [address] [facility] VENLAFAXINE HCL 37.5MG 24HR CAP,SA TAKE ONE CAPSULE BY MOUTH EVERY DAY WITH A MEAL ORAL DISCONT INUED BY PROVIDE R 07/05/2023 [id number] 4 ABDOULAYE ROOT [address] [facility] VENLAFAXINE HCL 75MG 24HR CAP,SA TAKE ONE CAPSULE BY MOUTH EVERY DAY WITH MEAL FOR 14 DAYS ORAL DISCONT INUED BY PROVIDE R 07/05/2023 [id number] 4 ABDOULAYE ROOT [address] [facility] VENLAFAXINE HCL 75MG 24HR CAP,SA TAKE ONE CAPSULE BY MOUTH EVERY DAY FOR ANXIETY, PAIN ORAL DISCONT INUED (EDIT) 11/29/2023 [id number] 3 PENOBSCOT,A BIGAIL E [address] 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 INFLUENZA, SEASONAL, INJECTABLE [address] [facility] HPV, QUADRIVALENT [address] [facility] INFLUENZA, SEASONAL, INJECTABLE [address] [facility] TDAP [address] [facility] INFLUENZA, SEASONAL, INJECTABLE [address] [facility] HPV, QUADRIVALENT [address] [facility] Novel influenza-H1N 1-09, injectable 1 2008 [id number] [employer]. (NOV) complet ed Novel influenza -Z1Z2-77, injectabl e [facility] anthrax vaccine 2 2008 [id number] [employer] Yuan (MIP) complet ed anthrax vaccine DoD anthrax vaccine 1 2008 [id number] [employer] Rayne (MIP) complet ed anthrax vaccine DoD vaccinia (smallpox) vaccine 1 2008 UNK 75 Unknown (UNK) Not Given vaccinia (smallpox ) vaccine DoD typhoid Vi capsular polysaccharid e vaccine 1 2008 [id number] Unknown (UNK) comple t ed typhoid Vi capsular polysacch aride vaccine [facility] human papilloma virus vaccine, quadrivalent 1 2008 FLORI, IBETH P [id number] 62 Merck (MSD) complet ed human papilloma virus vaccine, quadrival ent DoD influenza virus vaccine, live, attenuated, for intranasal use 1 2007 [id number] 111 Other (OTH) complet ed influenza virus vaccine, live, attenuate d, for intranasa l use [facility] hepatitis A vaccine, adult dosage 2 2007 [id number] 52 Unknown (UNK) complet ed hepatitis A vaccine, adult dosage DoD measles, mumps and rubella virus vaccine 1 2007 UNK 03 Unknown (UNK) Not Given measles, mumps and rubella virus vaccine DoD poliovirus vaccine, inactivated 1 2007 [id number] Sanofi Pasteur (PMC) complet ed polioviru s vaccine, inactivat ed DoD varicella virus vaccine 1 2007 UNK 21 Unknown (UNK) Not Given varicella virus vaccine DoD hepatitis B vaccine, adult dosage 1 2007 UNK 43 Unknown (UNK) Not Given hepatitis B vaccine, adult dosage DoD hepatitis A vaccine, adult dosage 1 2007 [id number] 52 [employer] (SKB) complet ed hepatitis A vaccine, adult dosage DoD influenza virus vaccine, live, attenuated, for intranasal use 1 2007 [id number] 111 [employer]. (MED) complet ed influenza virus vaccine, live, attenuate d, for intranasa l use DoD meningococcal polysaccharid e (groups A, C, Y and W-135) diphtheria toxoid conjugate vaccine (MCV4P) 1 2007 [id number] Sanofi Pasteur (PMC) complet ed meningoco ccal polysacch aride (groups A, C, Y and W-135) diphtheri a toxoid conjugate vaccine (MCV4P) DoD tetanus toxoid, reduced diphtheria toxoid, and acellular pertu is vaccine, adsorbed 1 2007 [id number] 115 Sanofi Pasteur (PMC) complet ed tetanus toxoid, reduced diphtheri a toxoid, and acellular pertussis vaccine, adsorbed DoD TDAP 2007 115 complet ed [place] [facility] Results Combined list of recent chemistry, hematology [...] Dec 31, 2022 01:23 PM Reporting Lab: [facility] [address] Performing Lab: [facility] [address] [facility] C.TRACHO MATIS/N. GONORRHE A DNA NEISSERIA GONORRHOEA E DNA [PRESENCE] IN URINE BY MAL WITH PROBE DETECTION NOT DETECTED 12/31 Specimen Type: URINE No comment entered. Ordering Provider: Angy GUERRERO Report Released Date/Time: Dec 31, 2022 01:23 PM Reporting Lab: [facility] [address] Performing Lab: [place] [phone] [facility] IS [facility] C.TRACHO MATIS/N. GONORRHE A DNA INTERPRETA TION AND REVIEW OF LABORATORY RESULTS Infectio us agent DNA is not detected by this assay 12/31 Specimen Type: URINE No comment entered. Ordering Provider: Angy GUERRERO Report Released Date/Time: Dec 31, 2022 01:23 PM Reporting Lab: [facility] [address] Performing Lab: [place] [address] [facility] IS [facility] HCG, QUAL CHORIOGONA DOTROPIN.B ETA SUBUNIT ( TEST) [PRESENCE] IN URINE NEGATIVE 12/31 Specimen Type: URINE No comment entered. Ordering Provider: Angy GUERRERO Report Released Date/Time: Dec 31, 2022 01:23 PM Reporting Lab: [facility] [address] Performing Lab: [facility] [address] [facility] IS [facility] C-REACTI VE PROTEIN C REACTIVE [...] Jul 19, 2022 09:34 AM Reporting Lab: [facility] [address] Performing Lab: [facility] [address] [facility] CBC & DIFF LEUKOCYTES [#/VOLUME] IN BLOOD BY AUTOMATED COUNT 13.98 10*3/uL 4.0 - 11.0 12/31 H Specimen Type: BLOOD Comment: Manual Differentia l Performed Ordering Provider: JAKUB RAZA Report Released Date/Time: Jul 18, 2022 03:26 PM Reporting Lab: [facility] [address] Performing Lab: [facility] [address] [place] [facility] CBC & DIFF ERYTHROCYT ES [#/VOLUME] IN BLOOD BY AUTOMATED COUNT 4.29 10*6/uL 4.0 - 5.4 12/31 Specimen Type: BLOOD Comment: Manual Differentia l Performed Ordering Provider: JAKUB RAZA Report Released Date/Time: Jul 18, 2022 03:26 PM Reporting Lab: [facility] [address] Performing Lab: [facility] [address] [place] [facility] CBC & DIFF HEMOGLOBIN [MASS/VOLU ME] IN BLOOD 14.0 g/dL 11.5 - 16 12/31 Specimen Type: BLOOD Comment: Manual Differentia l Performed Ordering Provider: JAKUB RAZA Report Released Date/Time: Jul 18, 2022 03:26 PM Reporting Lab: [facility] [address] Performing Lab: [facility] [address] [place] [facility] CBC & DIFF HEMATOCRIT [VOLUME FRACTION] OF BLOOD BY AUTOMATED COUNT 40.2 34.5 - 48 12/31 Specimen Type: BLOOD Comment: Manual Differentia l Performed Ordering Provider: JAKUB RAZA Report Released Date/Time: Jul 18, 2022 03:26 PM Reporting Lab: [facility] [address] Performing Lab: [facility] [address] [place] [facility] CBC & DIFF MCV [ENTITIC VOLUME] BY AUTOMATED COUNT 93.7 fL 80 - 100 12/31 Specimen Type: BLOOD Comment: Manual Differentia l Performed Ordering Provider: JAKUB RAZA Report Released Date/Time: Jul 18, 2022 03:26 PM Reporting Lab: [facility] [address] Performing Lab: [facility] [address] [place] [facility] CBC & DIFF MCH [ENTITIC MASS] BY AUTOMATED COUNT 32.6 pg 27 - 33 12/31 Specimen Type: BLOOD Comment: Manual Differentia l Performed Ordering Provider: JAKUB RAZA Report Released Date/Time: Jul 18, 2022 03:26 PM Reporting Lab: [facility] [address] Performing Lab: [facility] [address] [place] [facility] CBC & DIFF MCHC [MASS/VOLU ME] BY AUTOMATED COUNT 34.8 g/dL 32.0 - 37.5 12/31 Specimen Type: BLOOD Comment: Manual Differentia l Performed Ordering Provider: JAKUB RAZA Report Released Date/Time: Jul 18, 2022 03:26 PM Reporting Lab: [facility] [address] Performing Lab: [facility] [address] [place] [facility] CBC & DIFF PLATELETS [#/VOLUME] IN BLOOD BY AUTOMATED COUNT 361 10*3/uL 150 - 400 12/31 Specimen Type: BLOOD Comment: Manual Differentia l Performed Ordering Provider: JAKUB RAZA Report Released Date/Time: Jul 18, 2022 03:26 PM Reporting Lab: [facility] [address] Performing Lab: [facility] [address] [place] [facility] CBC & DIFF PLATELET MEAN VOLUME [ENTITIC VOLUME] IN BLOOD BY AUTOMATED COUNT 8.8 fL 7.4 - 10.4 12/31 Specimen Type: BLOOD Comment: Manual Differentia l Performed Ordering Provider: JAKUB RAZA Report Released Date/Time: Jul 18, 2022 03:26 PM Reporting Lab: [facility] [address] Performing Lab: [facility] [address] [place] [facility] CBC & DIFF NEUTROPHIL S/100 LEUKOCYTES IN BLOOD BY MANUAL COUNT 59.9 12/31 Specimen Type: BLOOD Comment: Manual Differentia l Performed Ordering Provider: JAKUB RAZA Report Released Date/Time: Jul 18, 2022 03:26 PM Reporting Lab: [facility] [address] Performing Lab: [facility] [address] [place] [facility] CBC & DIFF LYMPHOCYTE S/100 LEUKOCYTES IN BLOOD BY MANUAL COUNT 31.5 12/31 Specimen Type: BLOOD Comment: Manual Differentia l Performed Ordering Provider: JAKUB RAZA Report Released Date/Time: Jul 18, 2022 03:26 PM Reporting Lab: [facility] [address] Performing Lab: [facility] [address] [place] [facility] CBC & DIFF ERYTHROCYT E DISTRIBUTI ON WIDTH [RATIO] BY AUTOMATED COUNT 12.5 11.5 - 14.5 12/31 Specimen Type: BLOOD Comment: Manual Differentia l Performed Ordering Provider: JAKUB RAZA Report Released Date/Time: Jul 18, 2022 03:26 PM Reporting Lab: [facility] [address] Performing Lab: [facility] [address] [place] [facility] CBC & DIFF MONOCYTES/ 100 LEUKOCYTES IN BLOOD BY AUTOMATED COUNT 4.1 12/31 Specimen Type: BLOOD Comment: Manual Differentia l Performed Ordering Provider: JAKUB RAZA Report Released Date/Time: Jul 18, 2022 03:26 PM Reporting Lab: [facility] [address] Performing Lab: [facility] [address] [place] [facility] CBC & DIFF EOSINOPHIL S/100 LEUKOCYTES IN BLOOD BY AUTOMATED COUNT 3.0 12/31 Specimen Type: BLOOD Comment: Manual Differentia l Performed Ordering Provider: JAKUB RAZA Report Released Date/Time: Jul 18, 2022 03:26 PM Reporting Lab: [facility] [address] Performing Lab: [facility] [address] [place] [facility] CBC & DIFF BASOPHILS/ 100 LEUKOCYTES IN BLOOD BY MANUAL COUNT 1.0 12/31 Specimen Type: BLOOD Comment: Manual Differentia l Performed Ordering Provider: JAKUB RAZA Report Released Date/Time: Jul 18, 2022 03:26 PM Reporting Lab: [facility] [address] Performing Lab: [facility] [address] [place] [facility] CBC & DIFF MYELOCYTES /100 LEUKOCYTES IN BLOOD BY MANUAL COUNT 0.5 12/31 Specimen Type: BLOOD Comment: Manual Differentia l Performed Ordering Provider: JAKUB RAZA Report Released Date/Time: Jul 18, 2022 03:26 PM Reporting Lab: [facility] [address] Performing Lab: [facility] [address] [place] [facility] CBC & DIFF LYMPHOCYTE S [#/VOLUME] IN BLOOD BY AUTOMATED COUNT 4.40 10*3/uL 1.0 - 4.0 12/31 H Specimen Type: BLOOD Comment: Manual Differentia l Performed Ordering Provider: JAKUB RAZA Report Released Date/Time: Jul 18, 2022 03:26 PM Reporting Lab: [facility] [address] Performing Lab: [facility] [address] [place] [facility] CBC & DIFF MONOCYTES [#/VOLUME] IN BLOOD BY AUTOMATED COUNT 0.57 10*3/uL 0.1 - 1.0 12/31 Specimen Type: BLOOD Comment: Manual Differentia l Performed Ordering Provider: JAKUB RAZA Report Released Date/Time: Jul 18, 2022 03:26 PM Reporting Lab: [facility] [address] Performing Lab: [facility] [address] [place] [facility] CBC & DIFF NEUTROPHIL S [#/VOLUME] IN BLOOD BY AUTOMATED COUNT 8.37 10*3/uL 2.0 - 7.7 12/31 H Specimen Type: BLOOD Comment: Manual Differentia l Performed Ordering Provider: JAKUB RAZA Report Released Date/Time: Jul 18, 2022 03:26 PM Reporting Lab: [facility] [address] Performing Lab: [facility] [address] [place] [facility] CBC & DIFF EOSINOPHIL S [#/VOLUME] IN BLOOD BY AUTOMATED COUNT 0.42 10*3/uL 0 - 0.5 12/31 Specimen Type: BLOOD Comment: Manual Differentia l Performed Ordering Provider: LUZ MARINA,SOP HIA A Report Released Date/Time: Jul 18, 2022 03:26 PM Reporting Lab: [facility] [address] Performing Lab: [facility] [address] [facility] IS [facility] CBC & DIFF BASOPHILS [#/VOLUME] IN BLOOD BY AUTOMATED COUNT 0.14 10*3/uL 0 - 0.2 12/31 Specimen Type: BLOOD Comment: Manual Differentia l Performed Ordering Provider: JAKUB RAZA Report Released Date/Time: Jul 18, 2022 03:26 PM Reporting Lab: [facility] [address] Performing Lab: [facility] [address] [facility] CBC & DIFF MYELOCYTES [#/VOLUME] IN BLOOD BY MANUAL COUNT 0.07 10*3/uL 12/31 Specimen Type: BLOOD Comment: Manual Differentia l Performed Ordering Provider: JAKUB RAZA Report Released Date/Time: Jul 18, 2022 03:26 PM Reporting Lab: [facility] [address] Performing Lab: [facility] [address] [facility] CBC & DIFF ERYTHROCYT E MORPHOLOGY FINDING [IDENTIFIE R] IN BLOOD NORMOCYT IC, NORMOCHR OMIC 12/31 Specimen Type: BLOOD Comment: Manual Differentia l Performed Ordering Provider: JAKUB RAZA Report Released Date/Time: Jul 18, 2022 03:26 PM Reporting Lab: [facility] [address] Performing Lab: [facility] [address] [facility] COMPREHE NSIVE METABOLI C PANEL+MG [...] Jul 19, 2022 09:34 AM Reporting Lab: [facility] [address] Performing Lab: [facility] [address] [place] [facility] COMPREHE NSIVE METABOLI C PANEL+MG [...] Jul 19, 2022 09:34 AM Reporting Lab: [facility] [address] Performing Lab: [facility] [address] [facility] COMPREHE NSIVE METABOLI C PANEL+MG [...] Jul 19, 2022 09:34 AM Reporting Lab: [facility] [address] Performing Lab: [facility] [address] [facility] COMPREHE NSIVE METABOLI C PANEL+MG [...] Jul 19, 2022 09:34 AM Reporting Lab: [facility] [address] Performing Lab: [facility] [address] [place] [facility] COMPREHE NSIVE METABOLI C PANEL+MG [...] Jul 19, 2022 09:34 AM Reporting Lab: [facility] [address] Performing Lab: [place] [id number] [facility] IS [facility] COMPREHE NSIVE METABOLI C PANEL+MG [...] Jul 19, 2022 09:34 AM Reporting Lab: [place] [phone] Performing Lab: [facility] [address] [facility] IS [facility] COMPREHE NSIVE METABOLI C PANEL+MG [...] Jul 19, 2022 09:34 AM Reporting Lab: [facility] [address] Performing Lab: [facility] [address] [place] [facility] COMPREHE NSIVE METABOLI C PANEL+MG [...] Jul 19, 2022 09:34 AM Reporting Lab: [facility] [address] Performing Lab: [place] [phone] [facility] IS [facility] COMPREHE NSIVE METABOLI C PANEL+MG PROTEIN [MASS/VOLU [...] Jul 19, 2022 09:34 AM Reporting Lab: [facility] [address] Performing Lab: [facility] [address] [facility] COMPREHE NSIVE METABOLI C PANEL+MG [...] Jul 19, 2022 09:34 AM Reporting Lab: [facility] [address] Performing Lab: [facility] [address] [facility] COMPREHE NSIVE METABOLI C PANEL+MG [...] Jul 19, 2022 09:34 AM Reporting Lab: [facility] [address] Performing Lab: [place] [phone] [place] COMPREHE NSIVE METABOLI C PANEL+MG MAGNESIUM [...] Jul 19, 2022 09:34 AM Reporting Lab: [facility] [address] Performing Lab: [facility] [address] [facility] COMPREHE NSIVE METABOLI C PANEL+MG [...] Jul 19, 2022 09:34 AM Reporting Lab: [facility] [address] Performing Lab: [facility] [address] [facility] COMPREHE NSIVE METABOLI C PANEL+MG [...] Jul 19, 2022 09:34 AM Reporting Lab: [facility] [address] Performing Lab: [facility] [address] [place] COMPREHE NSIVE METABOLI C PANEL+MG ALANINE [...] Jul 19, 2022 09:34 AM Reporting Lab: [facility] [address] Performing Lab: [facility] [address] [facility] COMPREHE NSIVE METABOLI C PANEL+MG [...] Jul 19, 2022 09:34 AM Reporting Lab: [facility] [address] Performing Lab: [facility] [address] [facility] IS [facility] COMPREHE NSIVE METABOLI C PANEL+MG GLOMERULAR FILTRATION [...] Jul 19, 2022 09:34 AM Reporting Lab: [facility] [address] Performing Lab: [facility] [address] [facility] LIPID PANEL,NO N-FASTIN G CHOLESTERO [...] Jul 19, 2022 09:34 AM Reporting Lab: [address] Performing Lab: [address] [place] [facility] LIPID PANEL,NO N-FASTIN G CHOLESTERO [...] Jul 19, 2022 09:34 AM Reporting Lab: [place] [address] Performing Lab: [place] [address] [facility] LIPID PANEL,NO N-FASTIN G CHOLESTERO L [...] Jul 19, 2022 09:34 AM Reporting Lab: [facility] [address] Performing Lab: [place] [address] [place] [facility] LIPID PANEL,NO N-FASTIN G CHOLESTERO L [...] Jul 19, 2022 09:34 AM Reporting Lab: [facility] [address] Performing Lab: [facility] [address] [place] [facility] LIPID PANEL,NO N-FASTIN G CHOLESTERO [...] Jul 19, 2022 09:34 AM Reporting Lab: [facility] [address] Performing Lab: [facility] [address] [place] [facility] LIPID PANEL,NO N-FASTIN G TRIGLYCERI [...] Jul 19, 2022 09:34 AM Reporting Lab: [facility] [address] Performing Lab: [facility] [address] [facility] ANTI-HEP C(EIA) HEPATITIS C VIRUS AB [PRESENCE] IN SERUM NEGATIVE 12/31 Specimen Type: SERUM No comment entered. Ordering Provider: Angy GUERRERO Report Released Date/Time: Dec 31, 2022 01:23 PM Reporting Lab: [facility] [address] Performing Lab: [facility] [address] [facility] HIV AG/AB SCREEN HIV 1+2 AB+HIV1 P24 AG [PRESENCE] IN SERUM OR PLASMA BY IMMUNOASSA Y NEGATIVE 12/31 Specimen Type: SERUM No comment entered. Ordering Provider: Angy GUERRERO Report Released Date/Time: Dec 31, 2022 01:23 PM Reporting Lab: [facility] [address] Performing Lab: [facility] [address] [place] [facility] SYPHILIS ANTIBODY SYPHILIS SCREEN TEST STATUS CP NEGATIVE 12/31 Specimen Type: SERUM No comment entered. Ordering Provider: Angy GUERRERO Report Released Date/Time: Dec 31, 2022 01:23 PM Reporting Lab: [facility] [address] Performing Lab: [facility] [address] [place] [facility] PROLACTI N PROLACTIN [MASS/VOLU ME] IN SERUM OR PLASMA BY IMMUNOASSA Y 2.51 ng/mL <26.53 - 26.53 10/29 Specimen Type: PLASMA No comment entered. Ordering Provider: Angy GUERRERO Report Released Date/Time: Oct 25, 2022 04:35 PM Reporting Lab: [facility] [address] Performing Lab: [facility] [address] [place] [facility] Vital Signs Combined list of inpatient [...] [facility] 20 02/12/2023 14:30:32 [facility] Encounters Combined list of: 1) Encounters from Department of Veterans Affairs facilities going back up to thelast 18 months. 2) Encounters from the Department of Defense facilities going back up to 280 months. Location Location Details Encounter Type Encounter Number Reason For Visit Attending Provider ADM Date DC Date Status Disposition Source [employer](IEP Hearing Conservat ion) OUTPATIENT [id number] FERMINLESLY Cristóbal 04/09 Released w/o Limitations [employer](I EP Hearing Conserv ation) [employer](RE C Post Immunizat ion) OUTPATIENT [id number] IET PPD JOANNE TABARES 04/10 Released w/o Limitations [employer](M AHC Post Immuniz ation) [employer](RE C Post Immunizat ion) OUTPATIENT [id number] IET IMMUNIZ ATIONS [place]T VERMA Nata 04/13 Released w/o Limitations [employer](M AHC Post Immuniz ation) [employer](C Ambulator y) OUTPATIENT [id number] rtd MARCY ESPINOZA 06/05 Released with Work/Duty Limitations [facility](T MC Ambulat ory) [employer](TMC Ambulator y) OUTPATIENT [id number] SAM MCKEON 06/14 Released with Work/Duty Limitations [employer](T MC Ambulat ory) PEREZ Berrios([facility]) OUTPATIENT [id number] SELF CARE CLASS LOS HART 06/30 Released w/o Limitations PEREZ Overton([facility]) PEREZ Berrios([facility]) OUTPATIENT [id number] right knee pain for 5 days DEJA GARCIA 07/12 Released with Work/Duty Limitations [facility](Fami ly Practic e Combine d) PEREZ Berrios([facility]) OUTPATIENT [id number] l HIP BACK PAIN BRETT RIVAS Leola 07/23 Released with Work/Duty Limitations [facility](Fami ly Practic e Combine d) PEREZ Berrios([facility]) OUTPATIENT [id number] L hip pain JIHANBANDAR TREVIÑO Henrik 08/12 Released with Work/Duty Limitations [facility](Fami ly Practic e Combine d) PEREZ Berrios([facility]) OUTPATIENT [id number] broken nose DEJA GARCIA 08/16 Released with Work/Duty Limitations [facility](Fami ly Practic e Combine d) [facility](Hear ing Conservat ion SRP) OUTPATIENT [id number] in-proc essing/ pcs AIME MEADE Sherine 09/20 Released w/o Limitations [facility](He aring Conserv ation SRP) [facility]) OUTPATIENT [id number] Inproce ROM Corcoran 09/21 Released w/o Limitations [facility]) [facility]) OUTPATIENT [id number] sorGERALD aLne 10/13 Released with Work/Duty Limitations [facility]) [facility](Immi gration Phys Exam) OUTPATIENT [id number] possibl e sinus infecti on [facility] 11/03 Released w/o Limitations [facility](Im migrati on Phys Exam) [facility](Immi gration Phys Exam) OUTPATIENT [id number] back pain/wr ist pain possibl e referra l [facility] 11/16 Released with Work/Duty Limitations [facility](Im migrati on Phys Exam) [facility](Occu pational Therapy) OUTPATIENT [id number] joint pain, localiz ed in the wrist CLARY NDIAYE 12/07 Released w/o Limitations [facility](Oc cupatio nal Therapy ) [facility](Immi gration Phys Exam) OUTPATIENT [id number] crack on left foot [facility] 12/24 Released w/o Limitations [facility](Im migrati on Phys Exam) [facility](Immi gration Phys Exam) OUTPATIENT [id number] asthma evaluat ion GERALD FLORES 03/16 Released w/o Limitations [facility](Im migrati on Phys Exam) [facility](Immi gration Phys Exam) OUTPATIENT [id number] back pain GERALD FLORES 06/01 Released with Work/Duty Limitations [facility](Im migrati on Phys Exam) [facility](Immi gration Phys Exam) OUTPATIENT [id number] follow up GERALD FLORES 06/28 Released with Work/Duty Limitations [facility](Im migrati on Phys Exam) [facility](Phys ical Therapy Tran) OUTPATIENT [id number] VICTOR HUGO RODRIGUEZ 06/29 Released with Work/Duty Limitations [facility](Ph ysical Therapy Tran ) [facility](Phys ical Therapy Tran) OUTPATIENT [id number] MARTINSJEMMA PINA III 07/06 Released w/o Limitations [facility](Ph ysical Therapy Tran ) [facility](Immi gration Phys Exam) OUTPATIENT [id number] pap CANDACE CORDOVA 07/12 Released w/o Limitations [facility](Im migrati on Phys Exam) [facility](Phys ical Therapy Tran) OUTPATIENT [id number] MARTINSJEMMA PINA [facility] 07/13 Released w/o Limitations [facility](Ph ysical Therapy Tran ) [facility](Phys ical Therapy Tran) OUTPATIENT [id number] MARTINSJEMMA PINA [facility] 07/15 Released w/o Limitations [facility](Ph ysical Therapy Tran ) [facility](Immi gration Phys Exam) TELE CONSULT [id number] lab result CANDACE CORDOVA 07/15 [facility](Im migrati on Phys Exam) [facility](Epid emiology) TELE CONSULT [id number] CT (+) JAMEL DE LA O 07/19 [facility](Ep idemiol ogy) [facility](Epid emiology) OUTPATIENT [id number] ACUTE/P T JAMEL DE LA O 07/25 Released w/o Limitations [facility](Ep idemiol ogy) [facility](Immi gration Phys Exam) OUTPATIENT [id number] lower back/po ssible ortho referra GERALD [place] 08/10 Released with Work/Duty Limitations [facility](Im migrati on Phys Exam) [facility](Phys ical Medicine [place]) OUTPATIENT [id number] 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 DEMETRIUS LAWTON 09/02 Released w/o Limitations [facility](Ph ysical Medicin e [place]) [facility](Immi gration Phys Exam) OUTPATIENT [id number] F/U MRI SANDRAJENNIFERGERALD W 09/20 Released with Work/Duty Limitations [facility](Im migrati on Phys Exam) [facility](Immi gration Phys Exam) OUTPATIENT [id number] back pain CHAVO, MARIAM Lees 10/31 Released w/o Limitations [facility](Im migrati on Phys Exam) [facility](Orth opedics Spine) OUTPATIENT [id number] 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, first spine per referra MIGNON Saleh 11/15 Released with Work/Duty Limitations [facility](Or thopedi cs Spine) [facility](Eduardo ology/Hea ring Conservat ion) OUTPATIENT [id number] Periodi STEVAN Durán 11/18 Released w/o Limitations [facility](Au diology /Hearin g Conserv ation) [facility](Phys ical Therapy) OUTPATIENT [id number] MEB ROM for L/S Spine RK, MAYA BROWN 11/21 Released w/o Limitations [facility](Ph ysical Therapy ) [facility](Opto metry [facility]) OUTPATIENT [id number] med physicRASHAD Kurtz 11/21 Released w/o Limitations [facility](Op tometry [facility]) [facility](Immi gration Phys Exam) OUTPATIENT [id number] phase II pe (meb) ADRIÁN KHAN 11/25 Released w/o Limitations [facility](Im migrati on Phys Exam) [facility](Immi gration Phys Exam) OUTPATIENT [id number] deviate d nasal septum CANDACE CORDOVA 12/16 Released w/o Limitations [facility](Im migrati on Phys Exam) [facility](Immi gration Phys Exam) OUTPATIENT [id number] knee pain (deplet ed reflexe s) BANDAR FREED 01/19 Released w/o Limitations [facility](Im migrati on Phys Exam) [facility](Immi gration Phys Exam) OUTPATIENT [id number] referra l for sleep study KEYONSHANNAN BAE Nata 01/20 Released w/o Limitations [facility] [place](Im migrati on Phys Exam) [facility] LUKAS Diaz(Packaging Manager al Medicine) TELE CONSULT [id number] Per TDRL require mentSONIA Bui 03/[address] [facility] [address] [facility] LUKAS Diaz(Inte rnal Medicin e) [facility] LUKAS Diaz(AMH M01D Cats) OUTPATIENT [id number] TDRL SONIA SAEZ 04/10 Released w/o Limitations [facility] LUKAS Diaz(AMH M01D Cats) [facility] LUKAS Diaz(P T Clinic) OUTPATIENT [id number] ROM FOR TDRL JOSE RAUL SALAZAR ROMLAITH LEON 04/10 Released w/o Limitations [facility] LUKAS Diaz(P T Clinic) [facility] IS [facility] SELF CARE MNGMENT TRAINING [id number] Diagnos is: ICD-10- CM M79.671 Pain in right foot
SANTANA STEELE 08/07 [facility] Outpatient Encounter [id number] 08/08 [facility] HC PRO PHONE CALL 5-10 MIN [id number] Diagnos is: ICD-10- CM Z13.89 Encount er for screeni ng for other disorde r
MAIN,RENO NNE K 08/20 [facility] Outpatient Encounter [id number] 08/20 [place] [facility] [place] [facility] OFFICE O/P EST HI 40-54 MIN [id number] Diagnos is: ICD-10- CM R53.82 Chronic fatigue , unspeci fied
LEOPOLDO GUERRERO L 09/03 [place] [facility] Outpatient Encounter [id number] 09/04 [place] [facility] [place] [facility] NEUROMUSCU LAR REEDUCATIO N [id number] Diagnos is: ICD-10- CM M25.552 Pain in left hip<br/ > SANTANA STEELE L 09/04 [facility] OFFICE O/P NEW LOW 30-44 MIN [id number] Diagnos is: ICD-10- CM H52.03 Hyperme tropia, bilater al
YUAN DAVIS M 09/18 [facility] Outpatient Encounter [id number] 09/27 [facility] IS [facility] OFFICE O/P NEW MOD 45-59 MIN [id number] [id number] Diagnos is: ICD-10- CM K58.2 Mixed irritab le bowel syndrom e
Sherine HOLM ISAAC R 09/27 [facility] Outpatient Encounter [id number] 10/08 [facility] PSYCH DIAG EVAL W/MED SRVCS [id number] Diagnos is: ICD-10- CM F41.9 Anxiety disorde r, unspeci fied
PENOBSCOT,AB IGAIL E 10/09 [place] [facility] [place] [facility] Outpatient Encounter [id number] 10/14 [place] [facility] [place] [facility] Outpatient Encounter [id number] 10/15 [place] [facility] [place] [facility] SELF CARE MNGMENT TRAINING [id number] Diagnos is: ICD-10- CM M25.552 Pain in left hip<br/ > SANTANA STEELE L 10/16 [facility] [place] [facility] OFFICE O/P EST MOD 30-39 MIN [id number] Diagnos is: ICD-10- CM R09.81 Nasal congest ion<br/ > ALBERTO ESTRADAMae 10/16 [facility] [place] [facility] Outpatient Encounter [id number] 10/16 [facility] [place] [facility] OFFICE O/P EST LOW 20-29 MIN [id number] Diagnos is: ICD-10- CM L70.8 Other acne
LEOPOLDO GUERRERO L 10/25 [facility] [place] [facility] Outpatient Encounter [id number] 10/28 [facility] [place] [facility] Outpatient Encounter [id number] 11/13 [place] [facility] [place] [facility] Outpatient Encounter [id number] 11/18 [facility] [place] [facility] MANUAL THERAPY 1/> REGIONS [id number] Diagnos is: ICD-10- CM M25.552 Pain in left hip<br/ > SANTANA STEELE L 11/20 [facility] [place] [facility] OFFICE O/P EST HI 40-54 MIN [id number] Diagnos is: ICD-10- CM F41.9 Anxiety disorde r, unspeci fied
PENOBSCOT,AB IGAIL E 11/28 [place] [facility] [place] [facility] Outpatient Encounter [id number] SHAHANA NGUYEN 12/09 [place] [facility] [place] [facility] Outpatient Encounter [id number] 12/11 [place] [facility] [place] [facility] OFFICE O/P EST LOW 20-29 MIN [id number] Diagnos is: ICD-10- CM R09.81 Nasal congest ion<br/ > JESSE BRUCE 12/13 [place] [facility] [place] [facility] Outpatient Encounter [id number] 12/17 [facility] [place] [facility] MANUAL THERAPY 1/> REGIONS [id number] Diagnos is: ICD-10- CM M25.552 Pain in left hip<br/ > SANTANA STEELE 12/24 [facility] [place] [facility] Outpatient Encounter [id number] 12/26 [facility] [place] [facility] Outpatient Encounter [id number] 12/26 [facility] [place] [facility] OFFICE O/P EST MOD 30-39 MIN [id number] [id number] Diagnos is: ICD-10- CM E66.01 Morbid (severe ) obesity due to excess calorie s
LEOPOLDO GUERRERO 12/31 [place] [facility] [place] [facility] Outpatient Encounter [id number] 01/01 [place] [facility] [place] [facility] Outpatient Encounter [id number] 01/16 [facility] [place] [facility] OFFICE O/P EST HI 40-54 MIN [id number] Diagnos is: ICD-10- CM F41.9 Anxiety disorde r, unspeci fied
PENOBSCOT,AB IGAIL E 01/16 [place] [facility] [place] [facility] Outpatient Encounter [id number] 01/30 [place] [facility] [place] [facility] Outpatient Encounter [id number] 02/04 [place] [facility]/P EST LOW 20-29 MIN [id number] Diagnos is: ICD-10- CM F90.0 Attn-de fct hyperac tivity disorde r, predom inatten tive type
RICK DE LROSARIO A 02/12 [facility] [place] [facility] Outpatient Encounter [id number] 03/19 [place] [facility] [place] [facility] Outpatient Encounter [id number] 03/20 [place] [facility] [place] [facility] Outpatient Encounter [id number] 04/03 [facility] [place] [facility] Outpatient Encounter [id number] 04/04 [facility] [place] [facility] Outpatient Encounter [id number] SA SAI BRITT R 04/07 [place] [facility] [place] [facility] Outpatient Encounter [id number] 04/08 [place] [facility] [place] [facility] Outpatient Encounter [id number] AMBER GANNON A 04/08 [facility] [place] [facility] Outpatient Encounter [id number] 04/22 [place] [facility] [place] [facility] Outpatient Encounter [id number] 04/23 [place] [facility] [place] [facility] Outpatient Encounter [id number] 04/30 [place] [facility] [place] [facility] Outpatient Encounter [id number] 05/07 [place] [facility] [place] [facility] Outpatient Encounter [id number] 05/28 [place] [place] [facility] Outpatient Encounter [id number] 05/29 [place] [facility] [place] [facility] OFF/OP CNSLTJ NEW/EST MOD 40 [id number] Diagnos is: ICD-10- CM M54.50 Low back pain, unspeci fied
AUSTIN ISABEL 06/02 [facility] [place] [facility] QNHP OL DIG ASSMT&MGMT 11-20 [id number] Diagnos is: ICD-10- CM E66.01 Morbid (severe ) obesity due to excess calorie s
MARIA LUZ GATES 06/03 [place] [facility] [place] [facility] Outpatient Encounter [id number] GOGO TAVERAS 06/04 [place] [facility] [place] [facility] Outpatient Encounter [id number] 06/09 [place] [facility] [place] [facility] Outpatient Encounter [id number] 06/10 [place] [facility] [place] [facility] Outpatient Encounter [id number] 06/23 [place] [facility] [place] [facility] OFFICE O/P EST MOD 30 MIN [id number] [id number] Diagnos is: ICD-10- CM J34.2 Deviate d nasal septum< br/> HAMLAR,VAL ID 06/25 [place] [facility] [place] [facility] Outpatient Encounter [id number] 06/29 [place] [facility] [place] [facility] Outpatient Encounter [id number] 07/17 [place] [facility] [place] [facility] Outpatient Encounter [id number] 07/20 [place] [facility] [place] [facility] Outpatient Encounter [id number] SA RA Nata BRITT 07/20 [place] [facility] [place] [facility] Outpatient Encounter [id number] 07/21 [place] [facility] [place] [facility] Outpatient Encounter [id number] 07/21 [place] [facility] [facility] [place] [facility] HC PRO PHONE CALL 11-20 MIN [id number] Diagnos is: ICD-10- CM O09.521 Supervi ozzie of elderly multigr avida, first trimest er
STEVE SOLOMON 07/21 [place] [facility] [place] [facility] Outpatient Encounter [id number] 07/21 [place] [facility] [place] [facility] Outpatient Encounter [id number] Kajal MCDONALD 07/22 [place] [facility] [place] [facility] Outpatient Encounter [id number] 07/22 [place] [facility] [place] [facility] Outpatient Encounter [id number] 08/07 [place] [facility] [place] [facility] Outpatient Encounter [id number] 08/11 [place] [facility] [place] [facility] HC PRO PHONE CALL 5-10 MIN [id number] Diagnos is: ICD-10- CM O09.521 Supervi ozzie of elderly multigr avida, first trimest er
STEVE SOLOMON 09/04 [facility] [place] [facility] HC PRO PHONE CALL 5-10 MIN [id number] Diagnos is: ICD-10- CM O09.521 Supervi ozzie of elderly multigr avida, first trimest er
SOLOMON, STEVE K 09/07 [place] [facility] [place] [facility] Outpatient Encounter [id number] 09/23 [place] [facility] [place] [facility] Outpatient Encounter [id number] 09/23 [place] [facility] [place] [facility] HC PRO PHONE CALL 5-10 MIN [id number] Diagnos is: ICD-10- CM O09.522 Supervi ozzie of elderly multigr avida, second trimest er
SOLOMON, STEVE K 10/28 [place] [facility] [place] [facility] Outpatient Encounter [id number] 10/29 [place] [facility] [place] [facility] HC PRO PHONE CALL 5-10 MIN [id number] Diagnos is: ICD-10- CM O09.523 Supervi ozzie of elderly multigr avida, third trimest er
SOLOMON, STEVE K 01/05 [place] [facility] [place] [facility] HC PRO PHONE CALL 5-10 MIN [id number] Diagnos is: ICD-10- CM O09.523 Supervi ozzie of elderly multigr avida, third trimest er
SOLOMON, STEVE K 01/13 [place] [facility] Procedures Combined list of: 1) Procedures from [facility] facilities going back up to thelast 18 months, not all VA non-surgical procedures are included; 2) All procedures from the Department of Defense facilities. Procedure Procedure Type Code Date Perfomer Comments Sour e RANGE OF MOTION MEASUREMENTS AND REPORT (SEPARATE PROCEDURE); EACH EXTREMITY (EXCLUDING HAND) OR EACH TRUNK SECTION (SPINE) 2 [facility] EDUCATIONAL SUPPLIES, SUCH BOOKS, TAPES, AND PAMPHLETS, FOR THE PATIENT'S EDUCATION AT COST TO PHYSICIAN OR OTHER QUALIFIED HEALTH MANAGER DIABETES 8 [place] [facility] HEPATITIS A VACCINE (HEPA), ADULT DOSAGE, FOR INTRAMUSCULAR USE 8 [facility] SKIN TEST; TUBERCULOSIS, INTRADERMAL 8 [facility] PHYS/OTH QUALIFIED HEALTH MANAGER DIABETES QUALIFIED,EDUCATION, TRAIN,LICENSURE/REGU LATION (WHEN APPLICABLE) EDUC SER RENDERED TO PATS IN A GRP SETTING (EG,,OBESITY ,OR DIABETIC INSTRUCT) 8 [facility] ANTHRAX VACCINE, FOR SUBCUTANEOUS OR INTRAMUSCULAR USE 9 [facility] COLLECTION OF VENOUS BLOOD BY VENIPUNCTURE 9 [facility] INDIVIDUAL PSYCHOTHERAPY, INSIGHT ORIENTED, BEHAVIOR MODIFYING AND/OR SUPPORTIVE, IN AN OFFICE OR OUTPATIENT FACILITY, APPROXIMATELY 20 TO 30 MINUTES [id number] WITH THE PATIENT 9 [facility] RANGE OF MOTION MEASUREMENTS AND REPORT (SEPARATE PROCEDURE); EACH EXTREMITY (EXCLUDING HAND) OR EACH TRUNK SECTION (SPINE) 9 [facility] SKIN TEST; TUBERCULOSIS, INTRADERMAL 9 [facility] COLLECTION OF VENOUS BLOOD BY VENIPUNCTURE 9 [facility] PSYCHIATRIC DIAGNOSTIC INTERVIEW EXAMINATION 9 [facility] AUDIOMETRIC TESTING OF GROUPS 9 [facility] APPLICATION OF A MODALITY TO 1 OR MORE AREAS; HOT OR COLD PACKS 9 [facility] APPLICATION OF A MODALITY TO 1 OR MORE AREAS; HOT OR COLD PACKS 9 [facility] SCREENING PAPANICOLAOU SMEAR; OBTAINING, PREPARING AND CONVEYANCE OF CERVICAL OR VAGINAL SMEAR TO LABORATORY 9 [facility] INDIVIDUAL PSYCHOTHERAPY, INSIGHT ORIENTED, BEHAVIOR MODIFYING AND/OR SUPPORTIVE, IN AN OFFICE OR OUTPATIENT FACILITY, APPROXIMATELY 45 TO 50 MINUTES [id number] WITH THE PATIENT 9 [facility] THERAPEUTIC PROCEDURE, 1 OR MORE AREAS, EACH 15 MINUTES; THERAPEUTIC EXERCISES TO DEVELOP STRENGTH AND ENDURANCE, RANGE OF MOTION AND FLEXIBILITY 9 [facility] SELF-CARE/HOME MANAGMENT TRAIN (EG,ACT OF DAILY LIVING (ADL) &COMPENSAT TRAIN,MEAL PREPARATION,SAFETY PROCS,AND INSTRUCT IN USE OF ASST TECHNOLOGY DEV/ADPT EQUIP) DIR ONE-ON-ONE CONT,EA 15 MINUTES 9 [facility] PSYCHIATRIC DIAGNOSTIC INTERVIEW EXAMINATION 9 [facility] INJECTION, PENICILLIN G BENZATHINE, UP TO 2,400,000 UNITS 8 [facility] THERAPEUTIC PROCEDURE, 1 OR MORE AREAS, EACH 15 MINUTES; THERAPEUTIC EXERCISES TO DEVELOP STRENGTH AND ENDURANCE, RANGE OF MOTION AND FLEXIBILITY 8 [facility] HEPATITIS A VACCINE (HEPA), ADULT DOSAGE, FOR INTRAMUSCULAR USE 8 [facility] AUDIOMETRIC TESTING OF GROUPS 8 [facility] Range Of Motion Evaluation Of Extremity Range Of Motion Evaluation Of Extremity 77966 2 ROM SALAZAR [facility] Psychotherapy Individual Approximately 30 Minutes Psychotherapy Individual Approximately 30 Minutes [id number] MANSOOR TOLBERT [facility] Range Of Motion Evaluation Of Extremity Range Of Motion Evaluation Of Extremity 14682 9 MAYA BECKMAN [facility] Audiometry Group Testing Audiometry Group Testing 88056 9 STEVAN TAYLOR [facility] Modalities Heat Hot Packs Modalities Heat Hot Packs 13003 9 [facility] Physical Medicine - Group Physical Therapy Se ion Physical Medicine - Group Physical Therapy Session 23915 9 [facility] Modalities Heat Hot Packs Modalities Heat Hot Packs 81132 9 [facility] Physical Medicine - Group Physical Therapy Se ion Physical Medicine - Group Physical Therapy Session 24524 9 [facility] Screening papanicolaou smear; obtaining, preparing and conveyance of cervical or vaginal smear to laboratory 9 CANDACE CORDOVA [facility] Clinical Social Work Individual Outpatient Counseling 45 Minutes Clinical Social Work Individual Outpatient Counseling 45 Minutes [id number] 9 CASSIDY MONTES [facility] Physical Therapy: ___ Se ion Segments, 15 Minutes Each Physical Therapy: ___ Session Segments, 15 Minutes Each 82716 9 [facility] Modalities Heat Hot Packs Modalities Heat Hot Packs 23120 9 [facility] Physical Medicine - Group Physical Therapy Se ion Physical Medicine - Group Physical Therapy Session 75944 9 [facility] Patient Counseling Medical Management Individual Patient Patient Counseling Medical Management Individual Patient [id number] GERALD FLORES DoD A e /Interv Discharge Meds Reconciled W/ Current Meds List 9 GERALD FLORES [facility] Physical Therapy Service Evaluation Physical Therapy Service Evaluation 10108 9 VICTOR HUGO LAWRENCE [facility] Phys Therapy Education Self Care Training - Per 15 Minutes Phys Therapy Education Self Care Training - Per 15 Minutes [id number] 9 VICTOR HUGO LAWRENCE Psychiatric Diagnostic Evaluation Comprehensive Examination Psychiatric Diagnostic Evaluation Comprehensive Examination 10530 9 CASSIDY MONTES [facility] Patient Training And Self-Care Skills Patient Training And Self-Care Skills 15143 9 GERALD FLORES Patient Counseling Medical Management Individual Patient Patient Counseling Medical Management Individual Patient [id number] 9 GERALD FLORES A e /Interv Discharge Meds Reconciled W/ Current Meds List 9 GERALD FLORES Patient Counseling Medical Management Individual Patient Patient Counseling Medical Management Individual Patient [id number] 8 GERALD FLORES A e /Interv Discharge Meds Reconciled W/ Current Meds List 8 GERALD FLORES [facility] A isted Exercises For ROM Assisted Exercises For ROM 42144 8 CLARY NDIAYE [facility] Occupational Therapy Evaluation Occupational Therapy Evaluation 77131 8 CLARY NDIAYE Oropharynx Culture Streptococcus Group A Beta Hemolytic Oropharynx Culture Streptococcus Group A Beta Hemolytic 73713 8 GERALD FLORES [facility] Physician Supervised Injection Intramuscular Antibiotic Physician Supervised Injection Intramuscular Antibiotic 33406 8 GERALD FLORES [facility] Audiometry Group Testing Audiometry Group Testing 09046 8 AIME MEADE [facility] Physician Supervised Services Provision Of Educational Supplies Physician Supervised Services Provision Of Educational Supplies 80296 8 LOS HART [facility] Threshold Audiogram (Pure Tone) Threshold Audiogram (Pure Tone) 15242 8 LESLY CHRISTENSEN [facility] Audiometry Group Testing Audiometry Group Testing 12890 8 ELSLY CHRISTENSEN [facility] Special Physician Services Analysis Of Computerized Data Special Physician Services Analysis Of Computerized Data 48710 8 LESLY CHRISTENSEN [facility] Physician Supervised Services Provision Of Special Supplies Physician Supervised Services Provision Of Special Supplies 84650 8 LESLY CHRISTENSEN [facility] Physician Supervised Group Educational Services 8 LESLY CHRISTENSEN [facility] Ear mold/insert, not disposable, any type 8 LESLY CHRISTENSEN [facility] Ear Protector Attenuation Measurements Ear Protector Attenuation Measurements 03236 8 LESLY CHRISTENSEN [facility] Skin Test Anergy Tuberculin Intradermal Skin Test Anergy Tuberculin Intradermal 41697 8 JOANNE TABARES [facility] Hepatitis A Vaccine Adult Dosage (Intramuscular Use) Hepatitis A Vaccine Adult Dosage (Intramuscular Use) 95220 8 GUSTAVO VELOZ [facility] Vaccines Viral Polio, Inactivated Vaccines Viral Polio, Inactivated 17964 8 GUSTAVO VELOZ [facility] Meningococcal Polysaccharide Vaccine Meningococcal Polysaccharide Vaccine 01294 8 GUSATVO VELOZ [facility] Immunization Administration By Injection, Each Additional Vaccine 8 GUSTAVO VELOZ [facility] Td Vaccine Td Vaccine 28568 8 GUSTAVO VELOZ [facility] Immunization Administration By Injection, One Vaccine Immunization Administration By Injection, One Vaccine 39129 8 GUSTAVO VELOZ [facility] Social History Combined list of available smoking, tobacco, and other social history from Department of Defense and 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 Social History Type Response Date Comment Sourc e Tobacco smoking status NHIS VA-TOBACCO FORMER USER 07/22/2023 CORRINA TEIXEIRA [facility] History of tobacco use [place]-TO[place]AC[place] QUIT 1 TO < 5 YRS 07/22/2023 [facility] History of tobacco use [place]-TOBACCO FORMER USER 06/06/2022 [facility] History of tobacco use PREVIOUS SMOKER 11/21/2021 [facility] History of tobacco use [place]-TOBACCO FORMER USER 09/06/2021 [facility] History of tobacco use VA-TOBACCO USER E VERY DAY 11/03/2020 [facility] History of tobacco use [place]-TOBACCO USE [place] 30 MIN OF WAKEUP 05/06/2018 [facility] This section is an empty social history section. [facility] Plan of Care List of future care activities from Department of 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 Additional future care activities may be listed in the Assessment and Plan section. Date/Time Care Activity Care Activity Detail Facili ty 04/13/2024 AMBULATORY - NONE AMBULATORY - NONE SIVA JOHANSENMae [facility] 02/18/2024 Laboratory - Senior Graduate Advisor ry Order CBC and DIFF BLOOD SP ONCE [facility] 02/18/2024 Laboratory - Senior Graduate Advisor ry Order ACT PART THROMBO TIME PLASMA SP ONCE [facility] 02/18/2024 Laboratory - Senior Graduate Advisor ry Order PROTHROMBIN TIME/INR PLASMA SP ONCE [facility] 02/18/2024 Laboratory - Senior Graduate Advisor ry Order HEMOGLOBIN A1C BLOOD SP ONCE [facility] 02/18/2024 Laboratory - Senior Graduate Advisor ry Order BASIC METABOLIC PANEL+MG PLASMA SP ONCE [facility] 03/04/2024 Laboratory - Senior Graduate Advisor ry Order HCG, QUAL URINE SP ONCE [facility]
--- NOTE | 2024-01-21 14:00 | CRLHL7_ITS ---
For Patients: As a result of the Century Cures Act, medical imaging exams and procedure reports are released immediately into your electronic medical record. You may view this report before your referring provider. If you have questions, please contact your health care provider. INDICATION: MORBID OBESITY TECHNIQUE: Real time hoang scale imaging of the fetus was performed. COMPARISON: 10/21/2023 FINDINGS: Sonographic imaging demonstrates a single living intrauterine gestation. Fetus demonstrates a regular cardiac rate of 144 beats per minute. Fetus has a vertex position. The placenta lies posteriorly. Amniotic fluid volume appears normal and there is a single deepest pocket of 6.2 cm. The estimated weight is 2250gm which lies at the 75th %. BPD 17th percentile. HC 22nd percentile. AC 96th percentile. FL 37th percentile. The fetus was active and demonstrated normal breathing movements. There was normal flexion and extension of the trunk and extremities. IMPRESSION: Normal biophysical profile score 8/8. Sonographic gestational age 33 weeks 0 days and a sonographic due date of 03/10/2024. Estimated weight 75th percentile. Abdominal circumference is 96th percentile. Dictated by Francis Lyon MD @ 01/23/2024 1:37:14 PM (Electronically Signed)
== END 2024-01-21 13:55 | disposition home or self-care (01) ==
LOC: US 13:54
PROVIDERS: Visit Provider Obstetrics & Gynecology
DX: O99.213 Obesity complicating pregnancy, third trimester (principal); E66.01 Morbid (severe) obesity due to excess calories; Z68.43 Body mass index [BMI] 50.0-59.9, adult; Z3A.33 33 weeks gestation of pregnancy
CPT/HCPCS: 76816; 76819; 82565; 84450; 84460

== ENCOUNTER 2024-01-28 13:42 | Outpatient (CLI) | payer OTHER, MEDICAID, SELFPAY ==
--- OUTSIDE RECORDS SUMMARY | 2024-01-28 13:46 | XMS_ITS | Continuity of Care Document ---
Author Name [facility] Organization [facility] Care Team Providers Care Housekeeping Director Name Role Phone [facility] Unavailable Unavailable Problems [...] DoD obesity Active Condition DoD visit for: [facility] physical medical evaluation board (MEB) Inactive [...] Diseases Inactive Condition DoD Anxiety Active Condition [facility] Attention deficit hyperactivity disorder, predominantly inattentive type Active Condition [facility] Cancer cervix screening status Active Condition Nov 21 Entered By: MAILE RAZA Comment: No hx BJ 2-3Aug 2021 Entered By: MAILE RAZA Comment: 12/07/20 Colposcopy neg/ECC negAug 2021 Entered By: MAILE RAZA Comment: 11/15/21 PAP NILM/HPV neg. Next co-test due in 3 years (10/2024). [facility] Fatigue Active Condition [facility] Major depressive disorder Active Condition [facility] Nasal congestion Active Condition [facility] White blood cell count abnormal Active Condition Nov 08, 2020 Entered By: MAILE RAZA Comment: chronic, peripheral smear done 10/2020 [facility] Diagnosis: ICD-10-CM O09.523 Supervision of elderly multigravida, third trimester Active Diagnosis [facility] Diagnosis: ICD-10-CM O09.522 Supervision of elderly multigravida, second trimester Active Diagnosis [facility] Diagnosis: ICD-10-CM O09.521 Supervision of elderly multigravida, first trimester Active Diagnosis [facility] Diagnosis: ICD-10-CM J34.2 Deviated nasal septum Active Diagnosis [facility] Diagnosis: ICD-10-CM E66.01 Morbid (severe) obesity due to excess calories Active Diagnosis [facility] Diagnosis: ICD-10-CM M54.50 Low back pain, unspecified Active Diagnosis [facility] Diagnosis: ICD-10-CM F90.0 Attn-defct hyperactivity disorder, predom inattentive type Active Diagnosis [facility] Diagnosis: ICD-10-CM F41.9 Anxiety disorder, unspecified Active Diagnosis [facility] Diagnosis: ICD-10-CM M25.552 Pain in left hip Active Diagnosis [facility] Diagnosis: ICD-10-CM R09.81 Nasal congestion Active Diagnosis [facility] Diagnosis: ICD-10-CM L70.8 Other acne Active Diagnosis [facility] Diagnosis: ICD-10-CM K58.2 Mixed irritable bowel syndrome Active Diagnosis [facility] Diagnosis: ICD-10-CM H52.03 Hypermetropia, bilateral Active Diagnosis [facility] Diagnosis: ICD-10-CM R53.82 Chronic fatigue, unspecified Active Diagnosis [facility] Diagnosis: ICD-10-CM Z13.89 Encounter for screening for other disorder Active Diagnosis [facility] Diagnosis: ICD-10-CM M79.671 Pain in right foot [facility] Medications Combined list of outpatient medications from Department of Defense and [facility] Affairs facilities.Medications provided include 1) outpatient medications [...] OR WHEEZING RESPIR ATORY (INHAL ATION) 11/07/2023 [id number] ALBERTO MCLAUGHLIN 2023 1 [facility] BISACODYL 5MG TAB,EC TAKE TWO TABLETS BY MOUTH ONCE FOR COLON PREP ORAL 12/13/2022 [id number] 3 GERRY HOLM 2022 2 [facility] CICLOPIROX 8% SOLN,TOP APPLY THIN FILM TOPICALL Y EVERY DAY FOR FUNGAL NAIL INFECTIO N -- USE UNTIL RESOLUTI ON OR 48 WEEKS TOPICA L 01/01/2024 [id number] 3 LEOPOLDO GUERRERO 2022 19.8 [facility] FLUCONAZOLE 150MG TAB TAKE ONE TABLET BY MOUTH ONCE FOR ONE DOSE ORAL DISCONT INUED 06/13/2023 [id number] 4 Bonny FELIPE 2023 1 [facility] IMIQUIMOD 5% CREAM,TOP,P KT,0.25GM APPLY 1 PACKET TOPICALL Y FRIDAY, Y AND FRIDAY AT BEDTIME LEAVE ON SKIN FOR 8 HOURS. DO NOT USE WHILE TOPICA L ACTIVE 10/30/2024 [id number] 4 FB-HRDLIC JAH SMITH Angy 2023 24 [facility] METRONIDAZO LE 500MG TAB TAKE ONE TABLET BY MOUTH TWICE A DAY FOR 7 DAYS ORAL DISCONT INUED 06/13/2023 [id number] 4 Bonny FELIPE 2023 14 [facility] MODAFINIL 200MG TAB TAKE ONE AND ONE-HALF TABLETS BY MOUTH EVERY MORNING FOR MOOD, ENERGY ORAL DISCONT INUED BY PROVIDE R 05/31/2023 [id number] 4 [place] [place],A BIGAIL E 2022 45 [facility] MODAFINIL 200MG TAB TAKE ONE TABLET BY MOUTH EVERY MORNING FOR MOOD, ENERGY FOR ENERGY, FOCUS, MOOD ORAL DISCONT INUED (EDIT) 05/16/2023 [id number] 3 [place] [employer] [place] E 2022 30 [facility] MULTIVITAMI NS W/MINERALS, CAP/TAB TAKE 1 TABLET BY MOUTH EVERY DAY FOR SUPPLEME NT ORAL ACTIVE 08/07/2024 [id number] 4 BINA BAI 2023 100 [facility] MULTIVITAMI NS W/MINERALS, CAP/TAB TAKE 1 TABLET BY MOUTH EVERY DAY FOR SUPPLEME NT ORAL DISCONT INUED 07/20/2023 [id number] 3 BINA BAI 2022 100 [facility] NIFEDIPINE (EQV-CC) 30MG TAB,SA TAKE ONE TABLET BY MOUTH EVERY DAY FOR BLOOD PRESSURE ORAL ACTIVE 08/07/2024 [id number] 4 BINA BAI 2023 90 [facility] NIFEDIPINE (EQV-CC) 30MG TAB,SA TAKE ONE TABLET BY MOUTH EVERY DAY FOR BLOOD PRESSURE ORAL DISCONT INUED 07/20/2023 [id number] 4 BINA BAI R 2022 90 [facility] OMEPRAZOLE 20MG CAP,EC TAKE TWO CAPSULES BY MOUTH EVERY DAY BEFORE A MEAL ORAL DISCONT INUED 08/15/2023 [id number] 4 FB-IMANI BENNETT W 2023 60 [facility] PEG-3350/EL ECTROLYTES PWDR TAKE ONE AND ONE-HALF CONTAINE RS BY MOUTH DIRECTED FOR COLON PREP ORAL 12/13/2022 [id number] 3 GERRY HOLM R 2022 2 [facility] VENLAFAXINE HCL 150MG 24HR CAP,SA TAKE ONE CAPSULE BY MOUTH EVERY DAY FOR ANXIETY, PAIN ORAL DISCONT INUED BY PROVIDE R 01/17/2024 [id number] 4 [place],[employer] BIGAIL E 2022 90 [facility] VENLAFAXINE HCL 37.5MG 24HR CAP,SA TAKE ONE CAPSULE BY MOUTH EVERY DAY WITH A MEAL ORAL DISCONT INUED BY PROVIDE R 07/05/2023 [id number] 4 ABDOULAYE ROOT 2023 14 [facility] VENLAFAXINE HCL 75MG 24HR CAP,SA TAKE ONE CAPSULE BY MOUTH EVERY DAY WITH MEAL FOR 14 DAYS ORAL DISCONT INUED BY PROVIDE R 07/05/2023 [id number] 4 ABDOULAYE ROOT 2023 14 [facility] VENLAFAXINE HCL 75MG 24HR CAP,SA TAKE ONE CAPSULE BY MOUTH EVERY DAY FOR ANXIETY, PAIN ORAL DISCONT INUED (EDIT) 11/29/2023 [id number] 3 [place] BIG[place] E 2022 90 [facility] Allergies, Adverse Reactions, Alerts Combined list [...] Site Reaction Lot Number CVX Code Drug Bridge Engineer Status Comments Source TD (ADULT), 2 LF TETANUS TOXOID, PRESERVATIVE FREE, ADSORBED 2018 09 complet ed sanofi, [id number], EX 12/22/19 [facility] INFLUENZA, SEASONAL, INJECTABLE 2012 141 complet ed [facility] HPV, QUADRIVALENT 2 2011 62 complet ed [facility] INFLUENZA, SEASONAL, INJECTABLE 2011 141 complet ed [facility] TDAP 2011 115 complet ed [facility] INFLUENZA, SEASONAL, INJECTABLE 2011 141 complet ed [facility] HPV, QUADRIVALENT 1 2010 62 complet ed [facility] Novel influenza-H1N 1-09, injectable 1 2008 [id number] 127 [employer]. (NOV) complet ed Novel influenza -[id number], injectabl e [facility] anthrax vaccine 2 2008 [id number] [employer] [place] (MIP) complet ed anthrax vaccine DoD anthrax vaccine 1 2008 [id number] [employer] [place] (MIP) complet ed anthrax vaccine DoD vaccinia (smallpox) vaccine 1 2008 UNK 75 Unknown (UNK) Not Given vaccinia (smallpox ) vaccine DoD typhoid Vi capsular polysaccharid e vaccine 1 2008 [id number] Unknown (UNK) comple t ed typhoid Vi capsular polysacch aride vaccine [facility] human papilloma virus vaccine, quadrivalent 1 2008 FLORI, IBETH P [id number] 62 Merck (MSD) complet ed human papilloma virus vaccine, quadrival ent DoD influenza virus vaccine, live, attenuated, for intranasal use 1 2007 [id number] 111 Other (OTH) complet ed influenza virus vaccine, live, attenuate d, for intranasa l use [facility] hepatitis A vaccine, adult dosage 2 2007 [id number] 52 Unknown (UNK) complet ed hepatitis A vaccine, adult dosage DoD measles, mumps and rubella virus vaccine 1 2007 UNK 03 Unknown (UNK) Not Given measles, mumps and rubella virus vaccine DoD poliovirus vaccine, inactivated 1 2007 [id number] Sanofi Pasteur (PMC) complet ed polioviru s vaccine, inactivat ed DoD varicella virus vaccine 1 2007 UNK 21 Unknown (UNK) Not Given varicella virus vaccine DoD hepatitis B vaccine, adult dosage 1 2007 UNK 43 Unknown (UNK) Not Given hepatitis B vaccine, adult dosage DoD hepatitis A vaccine, adult dosage 1 2007 [id number] 52 [employer] (SKB) complet ed hepatitis A vaccine, adult dosage DoD influenza virus vaccine, live, attenuated, for intranasal use 1 2007 [id number] 111 [employer]. (MED) complet ed influenza virus vaccine, live, attenuate d, for intranasa l use DoD meningococcal polysaccharid e (groups A, C, Y and W-135) diphtheria toxoid conjugate vaccine (MCV4P) 1 2007 [id number] 114 Sanofi Pasteur (PMC) complet ed meningoco ccal polysacch aride (groups A, C, Y and W-135) diphtheri a toxoid conjugate vaccine (MCV4P) DoD tetanus toxoid, reduced diphtheria toxoid, and acellular pertu is vaccine, adsorbed 1 2007 [id number] 115 Sanofi Pasteur (PMC) complet ed tetanus toxoid, reduced diphtheri a toxoid, and acellular pertussis vaccine, adsorbed DoD TDAP 2007 115 complet ed [facility] Results Combined list of recent chemistry, hematology [...] Dec 31, 2022 01:23 PM Reporting Lab: [facility] [address] Performing Lab: [facility] [address] [facility] C.TRACHO MATIS/N. GONORRHE A DNA NEISSERIA GONORRHOEA E DNA [PRESENCE] IN URINE BY MAL WITH PROBE DETECTION NOT DETECTED 12/31 Specimen Type: URINE No comment entered. Ordering Provider: Angy GUERRERO Report Released Date/Time: Dec 31, 2022 01:23 PM Reporting Lab: [facility] [address] Performing Lab: [place] [phone] [facility] C.TRACHO MATIS/N. GONORRHE A DNA INTERPRETA TION AND REVIEW OF LABORATORY RESULTS Infectio us agent DNA is not detected by this assay 12/31 Specimen Type: URINE No comment entered. Ordering Provider: Angy GUERRERO Report Released Date/Time: Dec 31, 2022 01:23 PM Reporting Lab: [facility] [address] Performing Lab: [place] [address] [facility] HCG, QUAL CHORIOGONA DOTROPIN.B ETA SUBUNIT ( TEST) [PRESENCE] IN URINE NEGATIVE 12/31 Specimen Type: URINE No comment entered. Ordering Provider: Angy GUERRERO Report Released Date/Time: Dec 31, 2022 01:23 PM Reporting Lab: [facility] [address] Performing Lab: [facility] [address] [facility] C-REACTI VE PROTEIN C REACTIVE PROTEIN [...] Jul 19, 2022 09:34 AM Reporting Lab: [facility] [address] Performing Lab: [facility] [address] [facility] CBC & DIFF LEUKOCYTES [#/VOLUME] IN BLOOD BY AUTOMATED COUNT 13.98 10*3/uL 4.0 - 11.0 12/31 H Specimen Type: BLOOD Comment: Manual Differentia l Performed Ordering Provider: JAKUB RAZA Report Released Date/Time: Jul 18, 2022 03:26 PM Reporting Lab: [facility] [address] Performing Lab: [facility] [address] [place] [facility] CBC & DIFF ERYTHROCYT ES [#/VOLUME] IN BLOOD BY AUTOMATED COUNT 4.29 10*6/uL 4.0 - 5.4 12/31 Specimen Type: BLOOD Comment: Manual Differentia l Performed Ordering Provider: JAKUB RAZA Report Released Date/Time: Jul 18, 2022 03:26 PM Reporting Lab: [facility] [address] Performing Lab: [facility] [address] [place] [facility] CBC & DIFF HEMOGLOBIN [MASS/VOLU ME] IN BLOOD 14.0 g/dL 11.5 - 16 12/31 Specimen Type: BLOOD Comment: Manual Differentia l Performed Ordering Provider: JAKUB RAZA Report Released Date/Time: Jul 18, 2022 03:26 PM Reporting Lab: [facility] [address] Performing Lab: [facility] [address] [place] [facility] CBC & DIFF HEMATOCRIT [VOLUME FRACTION] OF BLOOD BY AUTOMATED COUNT 40.2 34.5 - 48 12/31 Specimen Type: BLOOD Comment: Manual Differentia l Performed Ordering Provider: JAKUB RAZA Report Released Date/Time: Jul 18, 2022 03:26 PM Reporting Lab: [facility] [address] Performing Lab: [facility] [address] [place] [facility] CBC & DIFF MCV [ENTITIC VOLUME] BY AUTOMATED COUNT 93.7 fL 80 - 100 12/31 Specimen Type: BLOOD Comment: Manual Differentia l Performed Ordering Provider: JAKUB RAZA Report Released Date/Time: Jul 18, 2022 03:26 PM Reporting Lab: [facility] [address] Performing Lab: [facility] [address] [place] [facility] CBC & DIFF MCH [ENTITIC MASS] BY AUTOMATED COUNT 32.6 pg 27 - 33 12/31 Specimen Type: BLOOD Comment: Manual Differentia l Performed Ordering Provider: JAKUB RAZA Report Released Date/Time: Jul 18, 2022 03:26 PM Reporting Lab: [facility] [address] Performing Lab: [facility] [address] [place] [facility] CBC & DIFF MCHC [MASS/VOLU ME] BY AUTOMATED COUNT 34.8 g/dL 32.0 - 37.5 12/31 Specimen Type: BLOOD Comment: Manual Differentia l Performed Ordering Provider: JAKUB RAZA Report Released Date/Time: Jul 18, 2022 03:26 PM Reporting Lab: [facility] [address] Performing Lab: [facility] [address] [facility] CBC & DIFF PLATELETS [#/VOLUME] IN BLOOD BY AUTOMATED COUNT 361 10*3/uL 150 - 400 12/31 Specimen Type: BLOOD Comment: Manual Differentia l Performed Ordering Provider: JAKUB RAZA Report Released Date/Time: Jul 18, 2022 03:26 PM Reporting Lab: [facility] [address] Performing Lab: [facility] [address] [place] [facility] CBC & DIFF PLATELET MEAN VOLUME [ENTITIC VOLUME] IN BLOOD BY AUTOMATED COUNT 8.8 fL 7.4 - 10.4 12/31 Specimen Type: BLOOD Comment: Manual Differentia l Performed Ordering Provider: JAKUB RAZA Report Released Date/Time: Jul 18, 2022 03:26 PM Reporting Lab: [facility] [address] Performing Lab: [facility] [address] [facility] CBC & DIFF NEUTROPHIL S/100 LEUKOCYTES IN BLOOD BY MANUAL COUNT 59.9 12/31 Specimen Type: BLOOD Comment: Manual Differentia l Performed Ordering Provider: JAKUB RAZA Report Released Date/Time: Jul 18, 2022 03:26 PM Reporting Lab: [facility] [address] Performing Lab: [facility] [address] [place] [facility] CBC & DIFF LYMPHOCYTE S/100 LEUKOCYTES IN BLOOD BY MANUAL COUNT 31.5 12/31 Specimen Type: BLOOD Comment: Manual Differentia l Performed Ordering Provider: JAKUB RAZA Report Released Date/Time: Jul 18, 2022 03:26 PM Reporting Lab: [facility] [address] Performing Lab: [facility] [address] [place] [facility] CBC & DIFF ERYTHROCYT E DISTRIBUTI ON WIDTH [RATIO] BY AUTOMATED COUNT 12.5 11.5 - 14.5 12/31 Specimen Type: BLOOD Comment: Manual Differentia l Performed Ordering Provider: JAKUB RAZA Report Released Date/Time: Jul 18, 2022 03:26 PM Reporting Lab: [facility] [address] Performing Lab: [facility] [address] [place] [facility] CBC & DIFF MONOCYTES/ 100 LEUKOCYTES IN BLOOD BY AUTOMATED COUNT 4.1 12/31 Specimen Type: BLOOD Comment: Manual Differentia l Performed Ordering Provider: JAKUB RAZA Report Released Date/Time: Jul 18, 2022 03:26 PM Reporting Lab: [facility] [address] Performing Lab: [facility] [address] [place] [facility] CBC & DIFF EOSINOPHIL S/100 LEUKOCYTES IN BLOOD BY AUTOMATED COUNT 3.0 12/31 Specimen Type: BLOOD Comment: Manual Differentia l Performed Ordering Provider: JAKUB RAZA Report Released Date/Time: Jul 18, 2022 03:26 PM Reporting Lab: [facility] [address] Performing Lab: [facility] [address] [place] [facility] CBC & DIFF BASOPHILS/ 100 LEUKOCYTES IN BLOOD BY MANUAL COUNT 1.0 12/31 Specimen Type: BLOOD Comment: Manual Differentia l Performed Ordering Provider: JAKUB RAZA Report Released Date/Time: Jul 18, 2022 03:26 PM Reporting Lab: [facility] [address] Performing Lab: [facility] [address] [place] [facility] CBC & DIFF MYELOCYTES /100 LEUKOCYTES IN BLOOD BY MANUAL COUNT 0.5 12/31 Specimen Type: BLOOD Comment: Manual Differentia l Performed Ordering Provider: JAKUB RAZA Report Released Date/Time: Jul 18, 2022 03:26 PM Reporting Lab: [facility] [address] Performing Lab: [facility] [address] [place] [facility] CBC & DIFF LYMPHOCYTE S [#/VOLUME] IN BLOOD BY AUTOMATED COUNT 4.40 10*3/uL 1.0 - 4.0 12/31 H Specimen Type: BLOOD Comment: Manual Differentia l Performed Ordering Provider: JAKUB RAZA Report Released Date/Time: Jul 18, 2022 03:26 PM Reporting Lab: [facility] [address] Performing Lab: [facility] [address] [place] [facility] CBC & DIFF MONOCYTES [#/VOLUME] IN BLOOD BY AUTOMATED COUNT 0.57 10*3/uL 0.1 - 1.0 12/31 Specimen Type: BLOOD Comment: Manual Differentia l Performed Ordering Provider: JAKUB RAZA Report Released Date/Time: Jul 18, 2022 03:26 PM Reporting Lab: [facility] [address] Performing Lab: [facility] [address] [place] [facility] CBC & DIFF NEUTROPHIL S [#/VOLUME] IN BLOOD BY AUTOMATED COUNT 8.37 10*3/uL 2.0 - 7.7 12/31 H Specimen Type: BLOOD Comment: Manual Differentia l Performed Ordering Provider: JAKUB RAZA Report Released Date/Time: Jul 18, 2022 03:26 PM Reporting Lab: [facility] [address] Performing Lab: [facility] [address] [place] [facility] CBC & DIFF EOSINOPHIL S [#/VOLUME] IN BLOOD BY AUTOMATED COUNT 0.42 10*3/uL 0 - 0.5 12/31 Specimen Type: BLOOD Comment: Manual Differentia l Performed Ordering Provider: LUZ MARINA,SOP HIA A Report Released Date/Time: Jul 18, 2022 03:26 PM Reporting Lab: [facility] [address] Performing Lab: [facility] [address] [facility] CBC & DIFF BASOPHILS [#/VOLUME] IN BLOOD BY AUTOMATED COUNT 0.14 10*3/uL 0 - 0.2 12/31 Specimen Type: BLOOD Comment: Manual Differentia l Performed Ordering Provider: JAKUB RAZA Report Released Date/Time: Jul 18, 2022 03:26 PM Reporting Lab: [facility] [address] Performing Lab: [facility] [address] [facility] CBC & DIFF MYELOCYTES [#/VOLUME] IN BLOOD BY MANUAL COUNT 0.07 10*3/uL 12/31 Specimen Type: BLOOD Comment: Manual Differentia l Performed Ordering Provider: JAKUB RAZA Report Released Date/Time: Jul 18, 2022 03:26 PM Reporting Lab: [facility] [address] Performing Lab: [facility] [address] [facility] CBC & DIFF ERYTHROCYT E MORPHOLOGY FINDING [IDENTIFIE R] IN BLOOD NORMOCYT IC, NORMOCHR OMIC 12/31 Specimen Type: BLOOD Comment: Manual Differentia l Performed Ordering Provider: JAKUB RAZA Report Released Date/Time: Jul 18, 2022 03:26 PM Reporting Lab: [facility] [address] Performing Lab: [facility] [address] [facility] COMPREHE NSIVE METABOLI C PANEL+MG CREATININE [...] Jul 19, 2022 09:34 AM Reporting Lab: [facility] [address] Performing Lab: [facility] [address] [facility] COMPREHE NSIVE METABOLI C PANEL+MG UREA [...] Jul 19, 2022 09:34 AM Reporting Lab: [facility] [address] Performing Lab: [facility] [address] [facility] COMPREHE NSIVE METABOLI C PANEL+MG GLUCOSE [...] Jul 19, 2022 09:34 AM Reporting Lab: [facility] [address] Performing Lab: [facility] [address] [facility] COMPREHE NSIVE METABOLI C PANEL+MG SODIUM [...] Jul 19, 2022 09:34 AM Reporting Lab: [facility] [address] Performing Lab: [facility] [address] [facility] COMPREHE NSIVE METABOLI C PANEL+MG POTASSIUM [...] Jul 19, 2022 09:34 AM Reporting Lab: [facility] [address] Performing Lab: [place] [phone] [facility] COMPREHE NSIVE METABOLI C PANEL+MG CHLORIDE [...] Jul 19, 2022 09:34 AM Reporting Lab: [place] [phone] Performing Lab: [facility] [address] [facility] COMPREHE NSIVE METABOLI C PANEL+MG CARBON [...] Jul 19, 2022 09:34 AM Reporting Lab: [facility] [address] Performing Lab: [facility] [address] [place] [facility] COMPREHE NSIVE METABOLI C PANEL+MG CALCIUM [...] Jul 19, 2022 09:34 AM Reporting Lab: [facility] [address] Performing Lab: [place] [phone] [facility] COMPREHE NSIVE METABOLI C PANEL+MG PROTEIN [...] Jul 19, 2022 09:34 AM Reporting Lab: [facility] [address] Performing Lab: [facility] [address] [facility] COMPREHE NSIVE METABOLI C PANEL+MG ALBUMIN [MASS/VOLU [...] Jul 19, 2022 09:34 AM Reporting Lab: [facility] [address] Performing Lab: [facility] [address] [facility] COMPREHE NSIVE METABOLI C PANEL+MG BILIRUBIN. [...] Jul 19, 2022 09:34 AM Reporting Lab: [facility] [address] Performing Lab: [place] [phone] [facility] COMPREHE NSIVE METABOLI C PANEL+MG MAGNESIUM [MASS/VOLU [...] Jul 19, 2022 09:34 AM Reporting Lab: [facility] [address] Performing Lab: [facility] [address] [facility] COMPREHE NSIVE METABOLI C PANEL+MG ANION [...] Jul 19, 2022 09:34 AM Reporting Lab: [facility] [address] Performing Lab: [facility] [address] [facility] COMPREHE NSIVE METABOLI C PANEL+MG ALKALINE [...] Jul 19, 2022 09:34 AM Reporting Lab: [facility] [address] Performing Lab: [facility] [address] [facility] COMPREHE NSIVE METABOLI C PANEL+MG ALANINE AMINOTRANS [...] Jul 19, 2022 09:34 AM Reporting Lab: [facility] [address] Performing Lab: [facility] [address] [facility] COMPREHE NSIVE METABOLI C PANEL+MG ASPARTATE [...] Jul 19, 2022 09:34 AM Reporting Lab: [facility] [address] Performing Lab: [facility] [address] [facility] COMPREHE NSIVE METABOLI C PANEL+MG GLOMERULAR [...] Jul 19, 2022 09:34 AM Reporting Lab: [facility] [address] Performing Lab: [facility] [address] [facility] LIPID PANEL,NO N-FASTIN G CHOLESTERO L [...] Jul 19, 2022 09:34 AM Reporting Lab: [address] Performing Lab: [address] [place] [facility] LIPID PANEL,NO N-FASTIN G CHOLESTERO L [...] Jul 19, 2022 09:34 AM Reporting Lab: [place] [address] Performing Lab: [place] [address] [facility] LIPID PANEL,NO N-FASTIN G CHOLESTERO L IN [...] Jul 19, 2022 09:34 AM Reporting Lab: [facility] [address] Performing Lab: [place] [address] [place] [facility] LIPID PANEL,NO N-FASTIN G CHOLESTERO L IN [...] Jul 19, 2022 09:34 AM Reporting Lab: [facility] [address] Performing Lab: [facility] [address] [facility] [facility] LIPID PANEL,NO N-FASTIN G CHOLESTERO L [...] Jul 19, 2022 09:34 AM Reporting Lab: [facility] [address] Performing Lab: [facility] [address] [facility] LIPID PANEL,NO N-FASTIN G TRIGLYCERI DE [...] Jul 19, 2022 09:34 AM Reporting Lab: [facility] [address] Performing Lab: [facility] [address] [facility] ANTI-HEP C(EIA) HEPATITIS C VIRUS AB [PRESENCE] IN SERUM NEGATIVE 12/31 Specimen Type: SERUM No comment entered. Ordering Provider: Angy GUERRERO Report Released Date/Time: Dec 31, 2022 01:23 PM Reporting Lab: [facility] [address] Performing Lab: [facility] [address] [facility] HIV AG/AB SCREEN HIV 1+2 AB+HIV1 P24 AG [PRESENCE] IN SERUM OR PLASMA BY IMMUNOASSA Y NEGATIVE 12/31 Specimen Type: SERUM No comment entered. Ordering Provider: Angy GUERRERO Report Released Date/Time: Dec 31, 2022 01:23 PM Reporting Lab: [facility] [id number] Performing Lab: [facility] [id number] [facility] SYPHILIS ANTIBODY SYPHILIS SCREEN TEST STATUS CP NEGATIVE 12/31 Specimen Type: SERUM No comment entered. Ordering Provider: Angy GUERRERO Report Released Date/Time: Dec 31, 2022 01:23 PM Reporting Lab: [facility] [id number] Performing Lab: [facility] [id number] [facility] PROLACTI N PROLACTIN [MASS/VOLU ME] IN SERUM OR PLASMA BY IMMUNOASSA Y 2.51 ng/mL <26.53 - 26.53 10/29 Specimen Type: PLASMA No comment entered. Ordering Provider: Angy GUERRERO Report Released Date/Time: Oct 25, 2022 04:35 PM Reporting Lab: [facility] [id number] Performing Lab: [facility] [id number] [facility] Vital Signs Combined list of inpatient and [...] [employer](IEP Hearing Conservat ion) OUTPATIENT [id number] FERMINLESLY Cristóbal 04/09 Released w/o Limitations [employer](I EP Hearing Conserv ation) [employer](RE C Post Immunizat ion) OUTPATIENT [id number] IET PPD JOANNE TABARES 04/10 Released w/o Limitations [employer](M AHC Post Immuniz ation) [employer](RE C Post Immunizat ion) OUTPATIENT [id number] IET IMMUNIZ ATIONS LISSETT VERMA Nata 04/13 Released w/o Limitations [employer](M AHC Post Immuniz ation) [employer](C Ambulator y) OUTPATIENT [id number] rtd MARCY ESPINOZA 06/05 Released with Work/Duty Limitations [employer](T MC Ambulat ory) [employer](TMC Ambulator y) OUTPATIENT [id number] SAM MCKEON 06/14 Released with Work/Duty Limitations [employer](T MC Ambulat ory) [facility](Critical access hospital) OUTPATIENT [id number] SELF CARE CLASS LOS HART 06/30 Released w/o Limitations [facility]) [facility]) OUTPATIENT [id number] right knee pain for 5 days DEJA GARCIA 07/12 Released with Work/Duty Limitations [facility] d) [facility]) OUTPATIENT [id number] l HIP BACK PAIN BRETT RIVAS Leola 07/23 Released with Work/Duty Limitations [facility](Fami ly Practic e Combine d) [facility]) OUTPATIENT [id number] L hip pain JIHANBANDAR TREVIÑO Henrik 08/12 Released with Work/Duty Limitations [facility](Fami ly Practic e Combine d) [facility]) OUTPATIENT [id number] broken nose DEJA GARCIA 08/16 Released with Work/Duty Limitations [facility](Fami ly Practic e Combine d) [facility](Hear ing Conservat ion SRP) OUTPATIENT [id number] in-proc essing/ pcs AIME MEADE Sherine 09/20 Released w/o Limitations [facility](He aring Conserv ation SRP) [facility]) OUTPATIENT [id number] Inproce ROM Corcoran 09/21 Released w/o Limitations [facility]) [facility]) OUTPATIENT [id number] sor[address]ALD Lane 10/13 Released with Work/Duty Limitations [facility]) [facility](Immi gration Phys Exam) OUTPATIENT [id number] possibl e sinus infecti on [facility] 11/03 Released w/o Limitations [facility](Im migrati on Phys Exam) [facility](Immi gration Phys Exam) OUTPATIENT [id number] back pain/wr ist pain possibl e referra l [facility] 11/16 Released with Work/Duty Limitations [facility](Im migrati on Phys Exam) [facility](Occu pational Therapy) OUTPATIENT [id number] joint pain, localiz ed in the wrist CLARY NDIAYE 12/07 Released w/o Limitations [facility](Oc cupatio nal Therapy ) [facility](Immi gration Phys Exam) OUTPATIENT [id number] crack on left foot [facility] 12/24 Released w/o Limitations [facility](Im migrati on Phys Exam) [facility](Immi gration Phys Exam) OUTPATIENT [id number] asthma evaluat ion GERALD FLORES 03/16 Released w/o Limitations [facility](Im migrati on Phys Exam) [facility](Immi gration Phys Exam) OUTPATIENT [id number] back pain GERALD FLORES 06/01 Released with Work/Duty Limitations [facility](Im migrati on Phys Exam) [facility](Immi gration Phys Exam) OUTPATIENT [id number] follow up GERALD FLORES 06/28 Released with Work/Duty Limitations [facility](Im migrati on Phys Exam) [facility](Phys ical Therapy Tran) OUTPATIENT [id number] VICTOR HUGO RODRIGUEZ 06/29 Released with Work/Duty Limitations [facility](Ph ysical Therapy Tran ) [facility](Phys ical Therapy Tran) OUTPATIENT [id number] MARTINSJEMMA PINA III 07/06 Released w/o Limitations [facility](Ph ysical Therapy Tran ) [facility](Immi gration Phys Exam) OUTPATIENT [id number] pap CANDACE CORDOVA 07/12 Released w/o Limitations [facility](Im migrati on Phys Exam) [facility](Phys ical Therapy Tran) OUTPATIENT [id number] MARTINSJEMMA PINA [facility] 07/13 Released w/o Limitations [facility](Ph ysical Therapy Tran ) [facility](Phys ical Therapy Tran) OUTPATIENT [id number] MARTINSJEMMA PINA [facility] 07/15 Released w/o Limitations [facility](Ph ysical Therapy Tran ) [facility](Immi gration Phys Exam) TELE CONSULT [id number] lab result CANDACE CORDOVA 07/15 [facility](Im migrati on Phys Exam) [facility](Epid emiology) TELE CONSULT [id number] CT (+) JAMEL DE LA O 07/19 [facility](Ep idemiol ogy) [facility](Epid emiology) OUTPATIENT [id number] ACUTE/P T JAMEL DE LA O 07/25 Released w/o Limitations [facility](Ep idemiol ogy) [facility](Immi gration Phys Exam) OUTPATIENT [id number] lower back/po ssible ortho referra GERALD [place] 08/10 Released with Work/Duty Limitations [facility](Im migrati on Phys Exam) [facility](Phys ical Medicine Vina) OUTPATIENT [id number] 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 DEMETRIUS LAWTON 09/02 Released w/o Limitations [facility](Ph ysical Medicin e Vina) [facility](Immi gration Phys Exam) OUTPATIENT [id number] F/U MRI SANDRAJENNIFERGERALD W 09/20 Released with Work/Duty Limitations [facility](Im migrati on Phys Exam) [facility](Immi gration Phys Exam) OUTPATIENT [id number] back pain CHAVO, MARIAM Lees 10/31 Released w/o Limitations [facility](Im migrati on Phys Exam) [facility](Orth opedics Spine) OUTPATIENT [id number] 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, first spine per referra MIGNON Saleh 11/15 Released with Work/Duty Limitations [facility](Or thopedi cs Spine) [facility](Eduardo ology/Hea ring Conservat ion) OUTPATIENT [id number] Periodi STEVAN Durán 11/18 Released w/o Limitations [facility](Au diology /Hearin g Conserv ation) [facility](Phys ical Therapy) OUTPATIENT [id number] MEB ROM for L/S Spine RK, MAYA BROWN 11/21 Released w/o Limitations [facility](Ph ysical Therapy ) [facility](Opto metry [facility]) OUTPATIENT [id number] med physicRASHAD Kurtz 11/21 Released w/o Limitations [facility](Op tometry [facility]) [facility](Immi gration Phys Exam) OUTPATIENT [id number] phase II pe (meb) ADRIÁN KHAN 11/25 Released w/o Limitations [facility](Im migrati on Phys Exam) [facility](Immi gration Phys Exam) OUTPATIENT [id number] deviate d nasal septum CANDACE CORDOVA 12/16 Released w/o Limitations [facility](Im migrati on Phys Exam) [facility](Immi gration Phys Exam) OUTPATIENT [id number] knee pain (deplet ed reflexe s) BANDAR FREED 01/19 Released w/o Limitations [facility](Im migrati on Phys Exam) [facility](Immi gration Phys Exam) OUTPATIENT [id number] referra l for sleep study KEYONSHANNAN BAE Nata 01/20 Released w/o Limitations [facility](Im migrati on Phys Exam) [facility] LUKAS Diaz(Roving Can Tender al Medicine) TELE CONSULT [id number] Per TDRL require mentSONIA Bui 03/15 [facility] LUKAS Diaz(Inte rnal Medicin e) [facility] LUKAS [facility](AMH M01D Cats) OUTPATIENT [id number] TDRL SONAI SAEZ 04/10 Released w/o Limitations [facility] LUKAS Diaz(AMH M01D Cats) [facility] LUKAS Diaz(P T Clinic) OUTPATIENT [id number] ROM FOR TDRL JOSE RAUL SALAZAR ROMLAITH LEON 04/10 Released w/o Limitations [facility] LUKAS Diaz(P T Clinic) [facility] SELF CARE MNGMENT TRAINING [id number] Diagnos is: ICD-10- CM M79.671 Pain in right foot
SANTANA STEELE 08/07 [facility] Outpatient Encounter [id number] 08/08 [facility] HC PRO PHONE CALL 5-10 MIN [id number] Diagnos is: ICD-10- CM Z13.89 Encount er for screeni ng for other disorde r
MAIN,RENO NNE K 08/20 [facility] En[facility] [id number] 08/20 [place] [facility] OFFICE O/P EST HI 40-54 MIN [id number] [id number] Diagnos is: ICD-10- CM R53.82 Chronic fatigue , unspeci fied
LEOPOLDO GUERRERO L 09/03 [place] [facility] Out[facility] Encounter [id number] 09/04 [place] [facility] NEUROMUSCU LAR REEDUCATIO N [id number] [id number] Diagnos is: ICD-10- CM M25.552 Pain in left hip<br/ > SANTANA STEELE L 09/04 [facility] OFFICE O/P NEW LOW 30-44 MIN [id number] Diagnos is: ICD-10- CM H52.03 Hyperme tropia, bilater al
YUAN DAVIS M 09/18 [facility]counter [id number] 09/27 [facility] OFFICE O/P NEW MOD 45-59 MIN [id number] [id number] Diagnos is: ICD-10- CM K58.2 Mixed irritab le bowel syndrom e
Sherine HOLM ISAAC R 09/27 [facility] Outpatient Encounter [id number] 10/08 [facility] PSYCH DIAG EVAL W/MED SRVCS [id number] [id number] Diagnos is: ICD-10- CM F41.9 Anxiety disorde r, unspeci fied
CHICKAHOMINY INDIAN TRIBE,AB IGAIL E 10/09 [place] [facility] [place] [facility] Outpatient Encounter [id number] 10/14 [place] [facility] [place] [facility] Outpatient Encounter [id number] 10/15 [place] [facility] [place] [facility] SELF CARE MNGMENT TRAINING [id number] [id number] Diagnos is: ICD-10- CM M25.552 Pain in left hip<br/ > SANTANA STEELE L 10/16 [facility] [place] [facility] OFFICE O/P EST MOD 30-39 MIN [id number] Diagnos is: ICD-10- CM R09.81 Nasal congest ion<br/ > ALBERTO ESTRADAMae 10/16 [facility] [place] [facility] Outpatient Encounter [id number] 10/16 [facility] [place] [facility] OFFICE O/P EST LOW 20-29 MIN [id number] [id number] Diagnos is: ICD-10- CM L70.8 Other acne
LEOPOLDO GUERRERO L 10/25 [facility] [place] [facility] Outpatient Encounter [id number] 10/28 [facility] [place] [facility] Outpatient Encounter [id number] 11/13 [place] [facility] [place] [facility] Outpatient [facility]counter [id number] 11/18 [facility] [place] [facility] MANUAL THERAPY 1/> [facility] [id number] Diagnos is: ICD-10- CM M25.552 Pain in left hip<br/ > SANTANA STEELE L 11/20 [facility] [place] [facility] OFFICE O/P EST HI 40-54 MIN [id number] [id number] Diagnos is: ICD-10- CM F41.9 Anxiety disorde r, unspeci fied
[place]ICK[place] INDI[place] TRIBE,AB IGAIL E 11/28 [place] [facility] [place] [facility] Outpatient Encounter [id number] SHAHANA NGUYEN 12/09 [place] [facility] [place] [facility] Outpatient Encounter [id number] 12/11 [place] [facility] [place] [facility] OFFICE O/P EST LOW 20-29 MIN [id number] Diagnos is: ICD-10- CM R09.81 Nasal congest ion<br/ > JESSE BRUCE 12/13 [place] [facility] [place] [facility] Outpatient Encounter [id number] 12/17 [facility] [place] [facility] MANUAL THERAPY 1/> [facility] [id number] Diagnos is: ICD-10- CM M25.552 Pain in left hip<br/ > SANTANA STEELE 12/24 [facility] [place] [facility] Outpatient Encounter [id number] 12/26 [facility] [place] [facility] Outpatient Encounter [id number] 12/26 [facility] [place] [facility] OFFICE O/P EST MOD 30-39 MIN [id number] [id number] Diagnos is: ICD-10- CM E66.01 Morbid (severe ) obesity due to excess calorie s
LEOPOLDO GUERRERO 12/31 [place] [facility] [place] [facility] Outpatient Encounter [id number] 01/01 [place] [facility] [place] [facility] Outpatient Encounter [id number] 01/16 [facility] [place] [facility] OFFICE O/P EST HI 40-54 MIN [id number] [id number] Diagnos is: ICD-10- CM F41.9 Anxiety disorde r, unspeci fied
[place] TRIBE,AB IGAIL E 01/16 [place] [facility] [place] [facility] Outpatient Encounter [id number] 01/30 [place] [facility] [place] [facility] Outpatient Encounter [id number] 02/04 [place] [facility]/P EST LOW 20-29 MIN [id number] [id number] Diagnos is: ICD-10- CM F90.0 Attn-de fct hyperac tivity disorde r, predom inatten tive type
RICK DEL ROSARIO A 02/12 [facility] [place] [facility] Outpatient Encounter [id number] 03/19 [place] [facility] [place] [facility] Outpatient Encounter [id number] 03/20 [place] [facility] [place] [facility] Outpatient Encounter [id number] [id number] 04/03 [facility] [place] [facility] Outpatient Encounter [id number] 04/04 [facility] [place] [facility] Outpatient Encounter [id number] SA SAI BRITT R 04/07 [place] [facility] [place] [facility] Outpatient Encounter [id number] 04/08 [place] [facility] [place] [facility] Outpatient Encounter [id number] AMBER GANNON A 04/08 [facility] [place] [facility] Outpatient Encounter [id number] 04/22 [place] [facility] [place] [facility] Outpatient Encounter [id number] 04/23 [place] [facility] [place] [facility] Outpatient Encounter [id number] [id number] 04/30 [place] [facility] [place] [facility] Out[facility] Encounter [id number] 05/07 [place] [facility] [place] [facility] Out[facility] Encounter [id number] 05/28 [place] [facility] [place] [facility] Outpatient Encounter [id number] [id number] 05/29 [place] [facility] [place] [facility] OFF/OP CNSLTJ NEW/EST MOD 40 [id number] Diagnos is: ICD-10- CM M54.50 Low back pain, unspeci fied
AUSTIN ISABEL 06/02 [facility] [place] [facility] QNHP OL DIG ASSMT&MGMT 11-20 [id number] Diagnos is: ICD-10- CM E66.01 Morbid (severe ) obesity due to excess calorie s
MARIA LUZ GATES 06/03 [place] [facility] [place] [facility] Outpatient Encounter [id number] GOGO TAVERAS 06/04 [place] [facility] [place] [facility] Outpatient Encounter [id number] 06/09 [place] [facility] [place] [facility] Outpatient Encounter [id number] 06/10 [place] [facility] [place] [facility] Outpatient [facility]counter [id number] 06/23 [place] [facility] [place] [facility] OFFICE O/P EST MOD 30 MIN [id number] [id number] Diagnos is: ICD-10- CM J34.2 Deviate d nasal septum< br/> HAMLAR,VAL ID 06/25 [place] [facility] [place] [facility] Outpatient Encounter [id number] 06/29 [place] [facility] [place] [facility] Outpatient Encounter [id number] [id number] 07/17 [place] [facility] [place] [facility] Outpatient Encounter [id number] 07/20 [place] [facility] [place] [facility] Out[facility] Encounter [id number] SA RA Nata BRITT 07/20 [place] [facility] [place] [facility] Outpatient Encounter [id number] [id number] 07/21 [place] [facility] [place] [facility] Out[facility] Encounter [id number] 07/21 [place] [facility] [place] [facility] HC PRO PHONE CALL 11-20 MIN [id number] Diagnos is: ICD-10- CM O09.521 Supervi ozzie of elderly multigr avida, first trimest er
STEVE SOLOMON 07/21 [place] [facility] [place] [facility] Outpatient Encounter [id number] 07/21 [place] [facility] [place] [facility] Outpatient Encounter [id number] Kajal MCDONALD 07/22 [place] [facility] [place] [facility] Outpatient Encounter [id number] 07/22 [place] [facility] [place] [facility] Outpatient Encounter [id number] 08/07 [place] [facility] [place] [facility] Outpatient Encounter [id number] 08/11 [place] [facility] [place] [facility] HC PRO PHONE CALL 5-10 MIN [id number] [id number] Diagnos is: ICD-10- CM O09.521 Supervi ozzie of elderly multigr avida, first trimest er
STEVE SOLOMON 09/04 [facility] [place] [facility] HC PRO PHONE CALL 5-10 MIN [id number] [id number] Diagnos is: ICD-10- CM O09.521 Supervi ozzie of elderly multigr avida, first trimest er
SOLOMON, STEVE K 09/07 [place] [facility] [place] [facility] Outpatient Encounter [id number] 09/23 [place] [facility] [place] [facility] Outpatient Encounter [id number] 09/23 [place] [facility] [place] [facility] HC PRO PHONE CALL 5-10 MIN [id number] [id number] Diagnos is: ICD-10- CM O09.522 Supervi ozzie of elderly multigr avida, second trimest er
SOLOMON, STEVE K 10/28 [place] [facility] [place] [facility] Outpatient Encounter [id number] 10/29 [place] [facility] [place] [facility] HC PRO PHONE CALL 5-10 MIN [id number] Diagnos is: ICD-10- CM O09.523 Supervi ozzie of elderly multigr avida, third trimest er
SOLOMON, STEVE K 01/05 [place] [facility] [place] [facility] PRO PHONE CALL 5-10 MIN [id number] [id number] Diagnos is: ICD-10- CM O09.523 Supervi ozzie of elderly multigr avida, third trimest er
SOLOMON, STEVE K 01/13 [place] [facility] Procedures Combined list of: 1) Procedures from Department of Veterans Affairs facilities going back up to thelast 18 months, not all [place] non-surgical procedures are included; 2) All procedures from the Department of Defense facilities. Procedure Procedure Type Code Date Perfomer Comments Sournidia e HEPATITIS A VACCINE (HEPA), ADULT DOSAGE, FOR INTRAMUSCULAR USE 8 [facility] SKIN TEST; TUBERCULOSIS, INTRADERMAL 8 [facility] PHYS/OTH QUALIFIED HEALTH DRYWALL STRIPPER QUALIFIED,EDUCATION, TRAIN,LICENSURE/REGU LATION (WHEN APPLICABLE) EDUC SER RENDERED TO PATS IN A GRP SETTING (EG,,OBESITY ,OR DIABETIC INSTRUCT) 8 [facility] RANGE OF MOTION MEASUREMENTS AND REPORT (SEPARATE PROCEDURE); EACH EXTREMITY (EXCLUDING HAND) OR EACH TRUNK SECTION (SPINE) 2 [facility] EDUCATIONAL SUPPLIES, SUCH BOOKS, TAPES, AND PAMPHLETS, FOR THE PATIENT'S EDUCATION AT COST TO PHYSICIAN OR OTHER QUALIFIED HEALTH DRYWALL STRIPPER 8 [facility] ANTHRAX VACCINE, FOR SUBCUTANEOUS OR INTRAMUSCULAR USE 9 [facility] COLLECTION OF VENOUS BLOOD BY VENIPUNCTURE 9 [facility] INDIVIDUAL PSYCHOTHERAPY, INSIGHT ORIENTED, BEHAVIOR MODIFYING AND/OR SUPPORTIVE, IN AN OFFICE OR OUTPATIENT FACILITY, APPROXIMATELY 20 TO 30 MINUTES [id number] WITH THE PATIENT 9 [facility] RANGE OF MOTION MEASUREMENTS AND REPORT (SEPARATE PROCEDURE); EACH EXTREMITY (EXCLUDING HAND) OR EACH TRUNK SECTION (SPINE) 9 [facility] SKIN TEST; TUBERCULOSIS, INTRADERMAL 9 [facility] COLLECTION OF VENOUS BLOOD BY VENIPUNCTURE 9 [facility] PSYCHIATRIC DIAGNOSTIC INTERVIEW EXAMINATION 9 [facility] AUDIOMETRIC TESTING OF GROUPS 9 [facility] APPLICATION OF A MODALITY TO 1 OR MORE AREAS; HOT OR COLD PACKS 9 [facility] APPLICATION OF A MODALITY TO 1 OR MORE AREAS; HOT OR COLD PACKS 9 [facility] SCREENING PAPANICOLAOU SMEAR; OBTAINING, PREPARING AND CONVEYANCE OF CERVICAL OR VAGINAL SMEAR TO LABORATORY 9 [facility] INDIVIDUAL PSYCHOTHERAPY, INSIGHT ORIENTED, BEHAVIOR MODIFYING AND/OR SUPPORTIVE, IN AN OFFICE OR OUTPATIENT FACILITY, APPROXIMATELY 45 TO 50 MINUTES [id number] WITH THE PATIENT 9 [facility] THERAPEUTIC PROCEDURE, 1 OR MORE AREAS, EACH 15 MINUTES; THERAPEUTIC EXERCISES TO DEVELOP STRENGTH AND ENDURANCE, RANGE OF MOTION AND FLEXIBILITY 9 [facility] SELF-CARE/HOME MANAGMENT TRAIN (EG,ACT OF DAILY LIVING (ADL) &COMPENSAT TRAIN,MEAL PREPARATION,SAFETY PROCS,AND INSTRUCT IN USE OF ASST TECHNOLOGY DEV/ADPT EQUIP) DIR ONE-ON-ONE CONT,EA 15 MINUTES 9 [facility] PSYCHIATRIC DIAGNOSTIC INTERVIEW EXAMINATION 9 [facility] INJECTION, PENICILLIN G BENZATHINE, UP TO 2,400,000 UNITS 8 [facility] THERAPEUTIC PROCEDURE, 1 OR MORE AREAS, EACH 15 MINUTES; THERAPEUTIC EXERCISES TO DEVELOP STRENGTH AND ENDURANCE, RANGE OF MOTION AND FLEXIBILITY 8 [facility] HEPATITIS A VACCINE (HEPA), ADULT DOSAGE, FOR INTRAMUSCULAR USE 8 [facility] AUDIOMETRIC TESTING OF GROUPS 8 [facility] Range Of Motion Evaluation Of Extremity Range Of Motion Evaluation Of Extremity [id number] 2 ROM SALAZAR [facility] Psychotherapy Individual Approximately 30 Minutes Psychotherapy Individual Approximately 30 Minutes [id number] MANSOOR TOLBERT [facility] Range Of Motion Evaluation Of Extremity Range Of Motion Evaluation Of Extremity [id number] MAYA BECKMAN [facility] Audiometry Group Testing Audiometry Group Testing [id number] STEVAN TAYLOR [facility] Modalities Heat Hot Packs Modalities Heat Hot Packs [id number] [phone] [facility] Physical Medicine - Group Physical Therapy Se ion Physical Medicine - Group Physical Therapy Session [id number] [phone] [facility] Modalities Heat Hot Packs Modalities Heat Hot Packs [id number] 9 [facility] Physical Medicine - Group Physical Therapy Se ion Physical Medicine - Group Physical Therapy Session [id number] [facility] Screening papanicolaou smear; obtaining, preparing and conveyance of cervical or vaginal smear to laboratory 9 CANDACE CORDOVA [facility] Clinical Social Work Individual Outpatient Counseling 45 Minutes Clinical Social Work Individual Outpatient Counseling 45 Minutes [id number] CASSIDY MONTES [facility] Physical Therapy: ___ Se ion Segments, 15 Minutes Each Physical Therapy: ___ Session Segments, 15 Minutes Each [id number] [facility] Modalities Heat Hot Packs Modalities Heat Hot Packs [id number] 9 [facility] Physical Medicine - Group Physical Therapy Se ion Physical Medicine - Group Physical Therapy Session [id number] [facility] Patient Counseling Medical Management Individual Patient Patient Counseling Medical Management Individual Patient [id number] GERALD FLORES DoD A e /Interv Discharge Meds Reconciled W/ Current Meds List 9 GERALD FLORES [facility] Physical Therapy Service Evaluation Physical Therapy Service Evaluation [id number] VICTOR HUGO LAWRENCE [facility] Phys Therapy Education Self Care Training - Per 15 Minutes Phys Therapy Education Self Care Training - Per 15 Minutes [id number] VICTOR HUGO LAWRENCE Psychiatric Diagnostic Evaluation Comprehensive Examination Psychiatric Diagnostic Evaluation Comprehensive Examination [id number] CASSIDY MONTES [facility] Patient Training And Self-Care Skills Patient Training And Self-Care Skills [id number] 9 GERALD FLORES Patient Counseling Medical Management Individual Patient Patient Counseling Medical Management Individual Patient [id number] GERALD FLORES A e /Interv Discharge Meds Reconciled W/ Current Meds List 9 GERALD FLORES Patient Counseling Medical Management Individual Patient Patient Counseling Medical Management Individual Patient [id number] GERALD FLORES A e /Interv Discharge Meds Reconciled W/ Current Meds List 8 GERALD FLORES [facility] A isted Exercises For ROM Assisted Exercises For ROM [id number] CLARY NDIAYE [facility] Occupational Therapy Evaluation Occupational Therapy Evaluation [id number] 8 CLARY NDIAYE Oropharynx Culture Streptococcus Group A Beta Hemolytic Oropharynx Culture Streptococcus Group A Beta Hemolytic 74067 8 GERALD FLORES [facility] Physician Supervised Injection Intramuscular Antibiotic Physician Supervised Injection Intramuscular Antibiotic 46275 8 GERALD FLORES [facility] Audiometry Group Testing Audiometry Group Testing 45326 8 AIME MEADE [facility] Physician Supervised Services Provision Of Educational Supplies Physician Supervised Services Provision Of Educational Supplies 54229 8 LOS HART [facility] Threshold Audiogram (Pure Tone) Threshold Audiogram (Pure Tone) 25384 8 LESLY CHRISTENSEN [facility] Audiometry Group Testing Audiometry Group Testing 93854 8 LESLY CHRISTENSEN [facility] Special Physician Services Analysis Of Computerized Data Special Physician Services Analysis Of Computerized Data 29162 8 LSELY CHRISTENSEN [facility] Physician Supervised Services Provision Of Special Supplies Physician Supervised Services Provision Of Special Supplies 55688 8 LESLY CHRISTENSEN [facility] Physician Supervised Group Educational Services 8 LESLY CHRISTENSEN [facility] Ear mold/insert, not disposable, any type 8 LESLY CHRISTENSEN [facility] Ear Protector Attenuation Measurements Ear Protector Attenuation Measurements 20877 8 LESLY CHRISTENSEN [facility] Skin Test Anergy Tuberculin Intradermal Skin Test Anergy Tuberculin Intradermal 79425 8 JOANNE TABARES [facility] Hepatitis A Vaccine Adult Dosage (Intramuscular Use) Hepatitis A Vaccine Adult Dosage (Intramuscular Use) 21363 8 GUSTAVO VELOZ [facility] Vaccines Viral Polio, Inactivated Vaccines Viral Polio, Inactivated 70606 8 GUSTAVO VELOZ [facility] Meningococcal Polysaccharide Vaccine Meningococcal Polysaccharide Vaccine 98758 8 GUSTAVO VELOZ [facility] Immunization Administration By Injection, Each Additional Vaccine 8 GUSTAVO VELOZ [facility] Td Vaccine Td Vaccine 01032 8 GUSTAVO VELOZ [facility] Immunization Administration By Injection, One Vaccine Immunization Administration By Injection, One Vaccine 73844 8 GUSTAVO VELOZ [facility] Social History Combined list of available smoking, tobacco, and other social history from Department of Defense and 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 Social History Type Response Date Comment Sourc e Tobacco smoking status NHIS VA-TOBACCO FORMER USER 07/22/2023 [facility] History of tobacco use NE-TOBACCO QUIT 1 TO < 5 YRS 07/22/2023 [facility] History of tobacco use NE-TOBACCO FORMER USER 06/06/2022 [facility] History of tobacco use PREVIOUS SMOKER 11/21/2021 [facility] History of tobacco use NE-TOBACCO FORMER USER 09/06/2021 [facility] History of tobacco use VA-TOBACCO USER E VERY DAY 11/03/2020 [facility] History of tobacco use NE-TOBACCO USE WI 30 MIN OF WAKEUP 05/06/2018 [facility] This section is an empty social history section. [facility] Plan of Care List of future care activities from Department of 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 Additional future care activities may be listed in the Assessment and Plan section. Date/Time Care Activity Care Activity Detail Facili ty 04/13/2024 AMBULATORY - NONE AMBULATORY - NONE [facility] 02/18/2024 Laboratory - [facility] [employer] Order CBC and DIFF BLOOD SP ONCE [facility] 02/18/2024 Laboratory - [employer] Order ACT PART THROMBO TIME PLASMA SP ONCE [facility] 02/18/2024 Laboratory - [employer] Order PROTHROMBIN TIME/INR PLASMA SP ONCE [facility] 02/18/2024 Laboratory - [employer] Order HEMOGLOBIN A1C BLOOD SP ONCE [facility] 02/18/2024 Laboratory - [employer] Order BASIC METABOLIC PANEL+MG PLASMA SP ONCE [facility] 03/04/2024 Laboratory - [employer] Order HCG, QUAL URINE SP ONCE [facility]
--- NOTE | 2024-01-28 14:00 | CRLHL7_ITS ---
For Patients: As a result of the Century Cures Act, medical imaging exams and procedure reports are released immediately into your electronic medical record. You may view this report before your referring provider. If you have questions, please contact your health care provider. INDICATION: Hypertension and obesity TECHNIQUE: Ultrasound OB pelvis transabdominal. Real-time hoang-scale imaging of the fetus was performed with color Doppler and spectral Doppler analysis of the umbilical artery without stress testing. COMPARISON: 01/21/2024 FINDINGS: Sonographic imaging demonstrates a single living intrauterine gestation. Fetus demonstrates a regular cardiac rate of 157 beats per minute. Fetus has a cephalic orientation. The placenta lies posterior. Amniotic fluid volume appears normal with a MVP of 4.8 cm. breathing movements, motion, and tone were all observed. IMPRESSION: Single viable intrauterine with a biophysical profile 11/05. Dictated by Jere Neri MD @ 01/28/2024 2:42:11 PM (Electronically Signed)
== END 2024-01-28 13:43 | disposition home or self-care (01) ==
LOC: US 13:43
PROVIDERS: Visit Provider Obstetrics & Gynecology
DX: O10.919 Unspecified pre-existing hypertension complicating pregnancy, unspecified trimester (principal); O99.210 Obesity complicating pregnancy, unspecified trimester; Z68.43 Body mass index [BMI] 50.0-59.9, adult; Z3A.00 Weeks of gestation of pregnancy not specified
CPT/HCPCS: 76819; 82565; 84450; 84460

== ENCOUNTER 2024-02-04 13:44 | Outpatient (CLI) | payer OTHER, SELFPAY ==
--- OUTSIDE RECORDS SUMMARY | 2024-02-04 13:47 | XMS_ITS | Clinical Summary ---
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 Name Role Phone No Ref-Primary, Physician Primary Care Provider Social History Tobacco Use Types Packs/Day Years Used Date Smoking Tobacco: Never Assessed Adolescent Education Answer Date Record ed Getting School Help Needed Not on file 10/20 Estimated Date of Delivery Comme nts Yes 03/13/2024 Based on Ultraso und Sex and Gender Information Value Date Recorded Sex Assigned at Not on file Legal Sex Female 8:27 AM CDT Gender Identity Not on file Sexual Orientation [...] on patient's age to complete this topic Insurance ALLEGRA Vargas [id number] [place] [address] [facility] Care Teams Conveyor Maintenance Mechanic Relationship Specialty Start Date End Date No Ref-Primary, Physician PCP - General 10/20/23
--- OUTSIDE RECORDS SUMMARY | 2024-02-04 13:47 | XMS_ITS | Continuity of Care Document ---
Author Name [facility] Organization [facility] Care Team Providers Care User Experience Designer Name Role Phone [facility] Unavailable Unavailable Problems [...] DoD obesity Active Condition DoD visit for: [facility] physical medical evaluation board (MEB) Inactive [...] Diseases Inactive Condition DoD Anxiety Active Condition [facility] Attention deficit hyperactivity disorder, predominantly inattentive type Active Condition [facility] Cancer cervix screening status Active Condition Nov 21 Entered By: MAILE RAZA Comment: No hx BJ 2-3Aug 2021 Entered By: MAILE RAZA Comment: 12/07/20 Colposcopy neg/ECC negAug 2021 Entered By: MAILE RAZA Comment: 11/15/21 PAP NILM/HPV neg. Next co-test due in 3 years (10/2024). [facility] Fatigue Active Condition [facility] Major depressive disorder Active Condition [facility] Nasal congestion Active Condition [facility] White blood cell count abnormal Active Condition Nov 08, 2020 Entered By: MAILE RAZA Comment: chronic, peripheral smear done 10/2020 [facility] Diagnosis: ICD-10-CM O09.523 Supervision of elderly multigravida, third trimester Active Diagnosis [facility] Diagnosis: ICD-10-CM O09.522 Supervision of elderly multigravida, second trimester Active Diagnosis [facility] Diagnosis: ICD-10-CM O09.521 Supervision of elderly multigravida, first trimester Active Diagnosis [facility] Diagnosis: ICD-10-CM J34.2 Deviated nasal septum Active Diagnosis [facility] Diagnosis: ICD-10-CM E66.01 Morbid (severe) obesity due to excess calories Active Diagnosis [facility] Diagnosis: ICD-10-CM M54.50 Low back pain, unspecified Active Diagnosis [facility] Diagnosis: ICD-10-CM F90.0 Attn-defct hyperactivity disorder, predom inattentive type Active Diagnosis [facility] Diagnosis: ICD-10-CM F41.9 Anxiety disorder, unspecified Active Diagnosis [facility] Diagnosis: ICD-10-CM M25.552 Pain in left hip Active Diagnosis [facility] Diagnosis: ICD-10-CM R09.81 Nasal congestion Active Diagnosis [facility] Diagnosis: ICD-10-CM L70.8 Other acne Active Diagnosis [facility] Diagnosis: ICD-10-CM K58.2 Mixed irritable bowel syndrome Active Diagnosis [facility] Diagnosis: ICD-10-CM H52.03 Hypermetropia, bilateral Active Diagnosis [facility] Diagnosis: ICD-10-CM R53.82 Chronic fatigue, unspecified Active Diagnosis [facility] Diagnosis: ICD-10-CM Z13.89 Encounter for screening for other disorder Active Diagnosis [facility] Diagnosis: ICD-10-CM M79.671 Pain in right foot [facility] Medications Combined list of outpatient medications from [facility] of [facility] and [facility] Affairs facilities.Medications provided include 1) outpatient medications [...] OR WHEEZING RESPIR ATORY (INHAL ATION) 11/07/2023 [id number] ALBERTO MCLAUGHLIN 2023 1 [facility] BISACODYL 5MG TAB,EC TAKE TWO TABLETS BY MOUTH ONCE FOR COLON PREP ORAL 12/13/2022 [id number] 3 GERRY HOLM 2022 2 [facility] CICLOPIROX 8% SOLN,TOP APPLY THIN FILM TOPICALL Y EVERY DAY FOR FUNGAL NAIL INFECTIO N -- USE UNTIL RESOLUTI ON OR 48 WEEKS TOPICA L 01/01/2024 [id number] 3 LEOPOLDO GUERRERO 2022 19.8 [facility] FLUCONAZOLE 150MG TAB TAKE ONE TABLET BY MOUTH ONCE FOR ONE DOSE ORAL DISCONT INUED 06/13/2023 [id number] 4 Bonny FELIPE 2023 1 [facility] IMIQUIMOD 5% CREAM,TOP,P KT,0.25GM APPLY 1 PACKET TOPICALL Y FRIDAY, Y AND FRIDAY AT BEDTIME LEAVE ON SKIN FOR 8 HOURS. DO NOT USE WHILE TOPICA L ACTIVE 10/30/2024 [id number] 4 FB-HRDLIC JAH SMITH Angy [address] [facility] METRONIDAZO LE 500MG TAB TAKE ONE TABLET BY MOUTH TWICE A DAY FOR 7 DAYS ORAL DISCONT INUED 06/13/2023 [id number] 4 Bonny FELIPE [address] [facility] MODAFINIL 200MG TAB TAKE ONE AND ONE-HALF TABLETS BY MOUTH EVERY MORNING FOR MOOD, ENERGY ORAL DISCONT INUED BY PROVIDE R 05/31/2023 [id number] 4 RAMPART,A BIGAIL E [address] [facility] MODAFINIL 200MG TAB TAKE ONE TABLET BY MOUTH EVERY MORNING FOR MOOD, ENERGY FOR ENERGY, FOCUS, MOOD ORAL DISCONT INUED (EDIT) 05/16/2023 [id number] 3 RAMPART,A BIGAIL E [address] [facility] MULTIVITAMI NS W/MINERALS, CAP/TAB TAKE 1 TABLET BY MOUTH EVERY DAY FOR SUPPLEME NT ORAL ACTIVE 08/07/2024 [id number] 4 BINA BAI [address] [facility] MULTIVITAMI NS W/MINERALS, CAP/TAB TAKE 1 TABLET BY MOUTH EVERY DAY FOR SUPPLEME NT ORAL DISCONT INUED 07/20/2023 [id number] 3 BINA BAI [address] [facility] NIFEDIPINE (EQV-CC) 30MG TAB,SA TAKE ONE TABLET BY MOUTH EVERY DAY FOR BLOOD PRESSURE ORAL ACTIVE 08/07/2024 [id number] 4 BINA BAI [address] [facility] NIFEDIPINE (EQV-CC) 30MG TAB,SA TAKE ONE TABLET BY MOUTH EVERY DAY FOR BLOOD PRESSURE ORAL DISCONT INUED 07/20/2023 [id number] 4 BINA BAI R 2022 90 [facility] OMEPRAZOLE 20MG CAP,EC TAKE TWO CAPSULES BY MOUTH EVERY DAY BEFORE A MEAL ORAL DISCONT INUED 08/15/2023 [id number] 4 FB-IMANI BENNETT W 2023 60 [facility] PEG-3350/EL ECTROLYTES PWDR TAKE ONE AND ONE-HALF CONTAINE RS BY MOUTH DIRECTED FOR COLON PREP ORAL 12/13/2022 [id number] GERRY HOLM R 2022 2 [facility] VENLAFAXINE HCL 150MG 24HR CAP,SA TAKE ONE CAPSULE BY MOUTH EVERY DAY FOR ANXIETY, PAIN ORAL DISCONT INUED BY PROVIDE R 01/17/2024 [id number] 4 RAMPART,A BIGAIL E 2022 90 [facility] VENLAFAXINE HCL 37.5MG 24HR CAP,SA TAKE ONE CAPSULE BY MOUTH EVERY DAY WITH A MEAL ORAL DISCONT INUED BY PROVIDE R 07/05/2023 [id number] 4 ABDOULAYE ROOT 2023 14 [facility] VENLAFAXINE HCL 75MG 24HR CAP,SA TAKE ONE CAPSULE BY MOUTH EVERY DAY WITH MEAL FOR 14 DAYS ORAL DISCONT INUED BY PROVIDE R 07/05/2023 [id number] 4 ABDOULAYE ROOT 2023 14 [facility] VENLAFAXINE HCL 75MG 24HR CAP,SA TAKE ONE CAPSULE BY MOUTH EVERY DAY FOR ANXIETY, PAIN ORAL DISCONT INUED (EDIT) 11/29/2023 [id number] 3 RAMPART,A BIGAIL E 2022 90 [facility] Allergies, Adverse Reactions, Alerts Combined list of [...] Site Reaction Lot Number CVX Code Drug Independent Agent Music Education Status Comments Source TD (ADULT), 2 LF TETANUS TOXOID, PRESERVATIVE FREE, ADSORBED 2018 09 complet ed sanofi, [id number], EX 12/22/19 [facility] INFLUENZA, SEASONAL, INJECTABLE 2012 141 complet ed [facility] HPV, QUADRIVALENT 2 2011 62 complet ed [facility] INFLUENZA, SEASONAL, INJECTABLE 2011 141 complet ed [facility] TDAP 2011 115 complet ed [facility] INFLUENZA, SEASONAL, INJECTABLE 2011 141 complet ed [facility] HPV, QUADRIVALENT 1 2010 62 complet ed [facility] Novel influenza-H1N 1-09, injectable 1 2008 [id number] 127 [employer]ens[employer]. (NOV) complet ed Novel influenza -X1C6-19, injectabl e [facility] anthrax vaccine 2 2008 [id number] [employer] Yuan (MIP) complet ed anthrax vaccine DoD anthrax vaccine 1 2008 [id number] [employer] [place] (MIP) complet ed anthrax vaccine DoD vaccinia (smallpox) vaccine 1 2008 UNK 75 Unknown (UNK) Not Given vaccinia (smallpox ) vaccine DoD typhoid Vi capsular polysaccharid e vaccine 1 2008 [id number] Unknown (UNK) comple t ed typhoid Vi capsular polysacch aride vaccine [facility] human papilloma virus vaccine, quadrivalent 1 2008 FLORI, IBETH P [id number] 62 Merck (MSD) complet ed human papilloma virus vaccine, quadrival ent DoD influenza virus vaccine, live, attenuated, for intranasal use 1 2007 [id number] 111 Other (OTH) complet ed influenza virus vaccine, live, attenuate d, for intranasa l use [facility] hepatitis A vaccine, adult dosage 2 2007 [id number] 52 Unknown (UNK) complet ed hepatitis A vaccine, adult dosage DoD measles, mumps and rubella virus vaccine 1 2007 UNK 03 Unknown (UNK) Not Given measles, mumps and rubella virus vaccine DoD poliovirus vaccine, inactivated 1 2007 [id number] Sanofi Pasteur (PMC) complet ed polioviru s vaccine, inactivat ed DoD varicella virus vaccine 1 2007 UNK 21 Unknown (UNK) Not Given varicella virus vaccine DoD hepatitis B vaccine, adult dosage 1 2007 UNK 43 Unknown (UNK) Not Given hepatitis B vaccine, adult dosage DoD hepatitis A vaccine, adult dosage 1 2007 [id number] 52 8digitsine (SKB) complet ed hepatitis A vaccine, adult dosage DoD influenza virus vaccine, live, attenuated, for intranasal use 1 2007 [id number] 111 SANDOW. (MED) complet ed influenza virus vaccine, live, attenuate d, for intranasa l use DoD meningococcal polysaccharid e (groups A, C, Y and W-135) diphtheria toxoid conjugate vaccine (MCV4P) 1 2007 [id number] 114 Sanofi Pasteur (PMC) complet ed meningoco ccal polysacch aride (groups A, C, Y and W-135) diphtheri a toxoid conjugate vaccine (MCV4P) DoD tetanus toxoid, reduced diphtheria toxoid, and acellular pertu is vaccine, adsorbed 1 2007 [id number] 115 Sanofi Pasteur (PMC) complet ed tetanus toxoid, reduced diphtheri a toxoid, and acellular pertussis vaccine, adsorbed DoD TDAP 2007 115 complet ed [place] [facility] Results Combined list of recent chemistry, [...] 01:23 PM Reporting Lab: [facility] [address] Performing Lab: [facility] [address] [facility] C.TRACHO MATIS/N. GONORRHE A DNA NEISSERIA GONORRHOEA E DNA [PRESENCE] IN URINE BY MAL WITH PROBE DETECTION NOT DETECTED 12/31 Specimen Type: URINE No comment entered. Ordering Provider: Angy GUERRERO Report Released Date/Time: Dec 31, 2022 01:23 PM Reporting Lab: [facility] [address] Performing Lab: [place] [phone] [facility] C.TRACHO MATIS/N. GONORRHE A DNA INTERPRETA TION AND REVIEW OF LABORATORY RESULTS Infectio us agent DNA is not detected by this assay 12/31 Specimen Type: URINE No comment entered. Ordering Provider: Angy GUERRERO Report Released Date/Time: Dec 31, 2022 01:23 PM Reporting Lab: [facility] [address] Performing Lab: [place] [address] [facility] HCG, QUAL CHORIOGONA DOTROPIN.B ETA SUBUNIT ( TEST) [PRESENCE] IN URINE NEGATIVE 12/31 Specimen Type: URINE No comment entered. Ordering Provider: Angy GUERRERO Report Released Date/Time: Dec 31, 2022 01:23 PM Reporting Lab: [facility] [address] Performing Lab: [facility] [address] [facility] C-REACTI VE PROTEIN C REACTIVE PROTEIN [...] 09:34 AM Reporting Lab: [facility] [address] Performing Lab: [facility] [address] [facility] CBC & DIFF LEUKOCYTES [#/VOLUME] IN BLOOD BY AUTOMATED COUNT 13.98 10*3/uL 4.0 - 11.0 12/31 H Specimen Type: BLOOD Comment: Manual Differentia l Performed Ordering Provider: JAKUB RAZA Report Released Date/Time: Jul 18, 2022 03:26 PM Reporting Lab: [facility] [address] Performing Lab: [facility] [address] [place] [facility] CBC & DIFF ERYTHROCYT ES [#/VOLUME] IN BLOOD BY AUTOMATED COUNT 4.29 10*6/uL 4.0 - 5.4 12/31 Specimen Type: BLOOD Comment: Manual Differentia l Performed Ordering Provider: JAKUB RAZA Report Released Date/Time: Jul 18, 2022 03:26 PM Reporting Lab: [facility] [address] Performing Lab: [facility] [address] [place] [facility] CBC & DIFF HEMOGLOBIN [MASS/VOLU ME] IN BLOOD 14.0 g/dL 11.5 - 16 12/31 Specimen Type: BLOOD Comment: Manual Differentia l Performed Ordering Provider: JAKUB RAZA Report Released Date/Time: Jul 18, 2022 03:26 PM Reporting Lab: [facility] [address] Performing Lab: [facility] [address] [place] [facility] CBC & DIFF HEMATOCRIT [VOLUME FRACTION] OF BLOOD BY AUTOMATED COUNT 40.2 34.5 - 48 12/31 Specimen Type: BLOOD Comment: Manual Differentia l Performed Ordering Provider: JAKUB RAZA Report Released Date/Time: Jul 18, 2022 03:26 PM Reporting Lab: [facility] [address] Performing Lab: [facility] [address] [place] [facility] CBC & DIFF MCV [ENTITIC VOLUME] BY AUTOMATED COUNT 93.7 fL 80 - 100 12/31 Specimen Type: BLOOD Comment: Manual Differentia l Performed Ordering Provider: JAKUB RAZA Report Released Date/Time: Jul 18, 2022 03:26 PM Reporting Lab: [facility] [address] Performing Lab: [facility] [address] [place] [facility] CBC & DIFF MCH [ENTITIC MASS] BY AUTOMATED COUNT 32.6 pg 27 - 33 12/31 Specimen Type: BLOOD Comment: Manual Differentia l Performed Ordering Provider: JAKUB RAZA Report Released Date/Time: Jul 18, 2022 03:26 PM Reporting Lab: [facility] [address] Performing Lab: [facility] [address] [place] [facility] CBC & DIFF MCHC [MASS/VOLU ME] BY AUTOMATED COUNT 34.8 g/dL 32.0 - 37.5 12/31 Specimen Type: BLOOD Comment: Manual Differentia l Performed Ordering Provider: JAKUB RAZA Report Released Date/Time: Jul 18, 2022 03:26 PM Reporting Lab: [facility] [address] Performing Lab: [facility] [address] [place] [facility] CBC & DIFF PLATELETS [#/VOLUME] IN BLOOD BY AUTOMATED COUNT 361 10*3/uL 150 - 400 12/31 Specimen Type: BLOOD Comment: Manual Differentia l Performed Ordering Provider: JAKUB RAZA Report Released Date/Time: Jul 18, 2022 03:26 PM Reporting Lab: [facility] [address] Performing Lab: [facility] [address] [place] [facility] CBC & DIFF PLATELET MEAN VOLUME [ENTITIC VOLUME] IN BLOOD BY AUTOMATED COUNT 8.8 fL 7.4 - 10.4 12/31 Specimen Type: BLOOD Comment: Manual Differentia l Performed Ordering Provider: JAKUB RAZA Report Released Date/Time: Jul 18, 2022 03:26 PM Reporting Lab: [facility] [address] Performing Lab: [facility] [address] [place] [facility] CBC & DIFF NEUTROPHIL S/100 LEUKOCYTES IN BLOOD BY MANUAL COUNT 59.9 12/31 Specimen Type: BLOOD Comment: Manual Differentia l Performed Ordering Provider: JAKUB RAZA Report Released Date/Time: Jul 18, 2022 03:26 PM Reporting Lab: [facility] [address] Performing Lab: [facility] [address] [place] [facility] CBC & DIFF LYMPHOCYTE S/100 LEUKOCYTES IN BLOOD BY MANUAL COUNT 31.5 12/31 Specimen Type: BLOOD Comment: Manual Differentia l Performed Ordering Provider: JAKUB RAZA Report Released Date/Time: Jul 18, 2022 03:26 PM Reporting Lab: [facility] [address] Performing Lab: [facility] [address] [place] [facility] CBC & DIFF ERYTHROCYT E DISTRIBUTI ON WIDTH [RATIO] BY AUTOMATED COUNT 12.5 11.5 - 14.5 12/31 Specimen Type: BLOOD Comment: Manual Differentia l Performed Ordering Provider: JAKUB RAZA Report Released Date/Time: Jul 18, 2022 03:26 PM Reporting Lab: [facility] [address] Performing Lab: [facility] [address] [place] [facility] CBC & DIFF MONOCYTES/ 100 LEUKOCYTES IN BLOOD BY AUTOMATED COUNT 4.1 12/31 Specimen Type: BLOOD Comment: Manual Differentia l Performed Ordering Provider: JAKUB RAZA Report Released Date/Time: Jul 18, 2022 03:26 PM Reporting Lab: [facility] [address] Performing Lab: [facility] [address] [place] [facility] CBC & DIFF EOSINOPHIL S/100 LEUKOCYTES IN BLOOD BY AUTOMATED COUNT 3.0 12/31 Specimen Type: BLOOD Comment: Manual Differentia l Performed Ordering Provider: JAKUB RAZA Report Released Date/Time: Jul 18, 2022 03:26 PM Reporting Lab: [facility] [address] Performing Lab: [facility] [address] [place] [facility] CBC & DIFF BASOPHILS/ 100 LEUKOCYTES IN BLOOD BY MANUAL COUNT 1.0 12/31 Specimen Type: BLOOD Comment: Manual Differentia l Performed Ordering Provider: JAKUB RAZA Report Released Date/Time: Jul 18, 2022 03:26 PM Reporting Lab: [facility] [address] Performing Lab: [facility] [address] [place] [facility] CBC & DIFF MYELOCYTES /100 LEUKOCYTES IN BLOOD BY MANUAL COUNT 0.5 12/31 Specimen Type: BLOOD Comment: Manual Differentia l Performed Ordering Provider: JAKUB RAZA Report Released Date/Time: Jul 18, 2022 03:26 PM Reporting Lab: [facility] [address] Performing Lab: [facility] [address] [place] [facility] CBC & DIFF LYMPHOCYTE S [#/VOLUME] IN BLOOD BY AUTOMATED COUNT 4.40 10*3/uL 1.0 - 4.0 12/31 H Specimen Type: BLOOD Comment: Manual Differentia l Performed Ordering Provider: JAKUB RAZA Report Released Date/Time: Jul 18, 2022 03:26 PM Reporting Lab: [facility] [address] Performing Lab: [facility] [address] [place] [facility] CBC & DIFF MONOCYTES [#/VOLUME] IN BLOOD BY AUTOMATED COUNT 0.57 10*3/uL 0.1 - 1.0 12/31 Specimen Type: BLOOD Comment: Manual Differentia l Performed Ordering Provider: JAKUB RAZA Report Released Date/Time: Jul 18, 2022 03:26 PM Reporting Lab: [facility] [address] Performing Lab: [facility] [address] [place] [facility] CBC & DIFF NEUTROPHIL S [#/VOLUME] IN BLOOD BY AUTOMATED COUNT 8.37 10*3/uL 2.0 - 7.7 12/31 H Specimen Type: BLOOD Comment: Manual Differentia l Performed Ordering Provider: JAKUB RAZA Report Released Date/Time: Jul 18, 2022 03:26 PM Reporting Lab: [facility] [address] Performing Lab: [facility] [address] [place] [facility] CBC & DIFF EOSINOPHIL S [#/VOLUME] IN BLOOD BY AUTOMATED COUNT 0.42 10*3/uL 0 - 0.5 12/31 Specimen Type: BLOOD Comment: Manual Differentia l Performed Ordering Provider: LUZ MARINA,SOP HIA A Report Released Date/Time: Jul 18, 2022 03:26 PM Reporting Lab: [facility] [address] Performing Lab: [facility] [address] [facility] CBC & DIFF BASOPHILS [#/VOLUME] IN BLOOD BY AUTOMATED COUNT 0.14 10*3/uL 0 - 0.2 12/31 Specimen Type: BLOOD Comment: Manual Differentia l Performed Ordering Provider: JAKUB RAZA Report Released Date/Time: Jul 18, 2022 03:26 PM Reporting Lab: [facility] [address] Performing Lab: [facility] [address] [facility] CBC & DIFF MYELOCYTES [#/VOLUME] IN BLOOD BY MANUAL COUNT 0.07 10*3/uL 12/31 Specimen Type: BLOOD Comment: Manual Differentia l Performed Ordering Provider: JAKUB RAZA Report Released Date/Time: Jul 18, 2022 03:26 PM Reporting Lab: [facility] [address] Performing Lab: [facility] [address] [facility] CBC & DIFF ERYTHROCYT E MORPHOLOGY FINDING [IDENTIFIE R] IN BLOOD NORMOCYT IC, NORMOCHR OMIC 12/31 Specimen Type: BLOOD Comment: Manual Differentia l Performed Ordering Provider: JAKUB RAZA Report Released Date/Time: Jul 18, 2022 03:26 PM Reporting Lab: [facility] [address] Performing Lab: [facility] [address] [facility] COMPREHE NSIVE METABOLI C PANEL+MG CREATININE [...] 09:34 AM Reporting Lab: [facility] [address] Performing Lab: [facility] [address] [place] [facility] COMPREHE NSIVE METABOLI C PANEL+MG UREA [...] 09:34 AM Reporting Lab: [facility] [address] Performing Lab: [facility] [address] [facility] COMPREHE NSIVE METABOLI C PANEL+MG GLUCOSE [...] 09:34 AM Reporting Lab: [facility] [address] Performing Lab: [facility] [address] [facility] COMPREHE NSIVE METABOLI C PANEL+MG SODIUM [...] 09:34 AM Reporting Lab: [facility] [address] Performing Lab: [facility] [address] [place] [facility] COMPREHE NSIVE METABOLI C PANEL+MG POTASSIUM [...] 09:34 AM Reporting Lab: [facility] [address] Performing Lab: [place] [phone] [facility] COMPREHE NSIVE METABOLI C PANEL+MG CHLORIDE [...] Jul 19, 2022 09:34 AM Reporting Lab: [place] [phone] Performing Lab: [facility] [address] [facility] COMPREHE NSIVE METABOLI C PANEL+MG CARBON [...] 09:34 AM Reporting Lab: [facility] [address] Performing Lab: [facility] [address] [place] [facility] COMPREHE NSIVE METABOLI C PANEL+MG CALCIUM [...] 09:34 AM Reporting Lab: [facility] [address] Performing Lab: [place] [address] [facility] COMPREHE NSIVE METABOLI C PANEL+MG PROTEIN [...] 09:34 AM Reporting Lab: [facility] [address] Performing Lab: [facility] [address] [facility] COMPREHE NSIVE METABOLI C PANEL+MG ALBUMIN [...] 09:34 AM Reporting Lab: [facility] [address] Performing Lab: [facility] [address] [facility] COMPREHE NSIVE METABOLI C PANEL+MG BILIRUBIN. [...] 09:34 AM Reporting Lab: [facility] [address] Performing Lab: [place] [phone] [place] [facility] COMPREHE NSIVE METABOLI C PANEL+MG MAGNESIUM [...] 09:34 AM Reporting Lab: [facility] [address] Performing Lab: [facility] [address] [facility] COMPREHE NSIVE METABOLI C PANEL+MG ANION [...] 09:34 AM Reporting Lab: [facility] [address] Performing Lab: [facility] [address] [facility] COMPREHE NSIVE METABOLI C PANEL+MG ALKALINE [...] 09:34 AM Reporting Lab: [facility] [address] Performing Lab: [facility] [address] [place] [facility] COMPREHE NSIVE METABOLI C PANEL+MG ALANINE [...] 09:34 AM Reporting Lab: [facility] [address] Performing Lab: [facility] [address] [facility] COMPREHE NSIVE METABOLI C PANEL+MG ASPARTATE [...] 09:34 AM Reporting Lab: [facility] [address] Performing Lab: [facility] [address] [facility] COMPREHE NSIVE METABOLI C PANEL+MG GLOMERULAR [...] 09:34 AM Reporting Lab: [facility] [address] Performing Lab: [facility] [address] [facility] LIPID PANEL,NO N-FASTIN G CHOLESTERO L [...] Jul 19, 2022 09:34 AM Reporting Lab: [address] Performing Lab: [address] [place] [facility] LIPID PANEL,NO N-FASTIN G CHOLESTERO L [...] Jul 19, 2022 09:34 AM Reporting Lab: [place] [address] Performing Lab: [place] [address] [facility] LIPID PANEL,NO N-FASTIN G CHOLESTERO L [...] 09:34 AM Reporting Lab: [facility] [address] Performing Lab: [place] [address] [place] [facility] LIPID PANEL,NO N-FASTIN G CHOLESTERO L [...] 09:34 AM Reporting Lab: [facility] [facility] [address] Performing Lab: [facility] [address] [place] [facility] LIPID PANEL,NO N-FASTIN G CHOLESTERO L [...] 09:34 AM Reporting Lab: [facility] [address] Performing Lab: [facility] [address] [place] [facility] LIPID PANEL,NO N-FASTIN G TRIGLYCERI DE [...] 09:34 AM Reporting Lab: [facility] [address] Performing Lab: [facility] [address] [facility] ANTI-HEP C(EIA) HEPATITIS C VIRUS AB [PRESENCE] IN SERUM NEGATIVE 12/31 Specimen Type: SERUM No comment entered. Ordering Provider: Angy GUERRERO Report Released Date/Time: Dec 31, 2022 01:23 PM Reporting Lab: [facility] [address] Performing Lab: [facility] [address] [facility] HIV AG/AB SCREEN HIV 1+2 AB+HIV1 P24 AG [PRESENCE] IN SERUM OR PLASMA BY IMMUNOASSA Y NEGATIVE 12/31 Specimen Type: SERUM No comment entered. Ordering Provider: Angy GUERRERO Report Released Date/Time: Dec 31, 2022 01:23 PM Reporting Lab: [facility] [address] Performing Lab: [facility] [address] [place] [facility] SYPHILIS ANTIBODY SYPHILIS SCREEN TEST STATUS CP NEGATIVE 12/31 Specimen Type: SERUM No comment entered. Ordering Provider: Angy GUERRERO Report Released Date/Time: Dec 31, 2022 01:23 PM Reporting Lab: [facility] [address] Performing Lab: [facility] [address] [place] [facility] PROLACTI N PROLACTIN [MASS/VOLU ME] IN SERUM OR PLASMA BY IMMUNOASSA Y 2.51 ng/mL <26.53 - 26.53 10/29 Specimen Type: PLASMA No comment entered. Ordering Provider: Angy GUERRERO Report Released Date/Time: Oct 25, 2022 04:35 PM Reporting Lab: [facility] [address] Performing Lab: [facility] [address] [place] [facility] Vital Signs Combined list of inpatient [...] [employer](IEP Hearing Conservat ion) OUTPATIENT [id number] FERMINLESLY Cristóbal 04/09 Released w/o Limitations [employer](I EP Hearing Conserv ation) [employer](RE C Post Immunizat ion) OUTPATIENT [id number] IET PPD JOANNE TABARES 04/10 Released w/o Limitations [employer](M AHC Post Immuniz ation) [employer](RE C Post Immunizat ion) OUTPATIENT [id number] IET IMMUNIZ ATIONS LISSETT VERMA Nata 04/13 Released w/o Limitations [employer](M AHC Post Immuniz ation) [employer](C Ambulator y) OUTPATIENT [id number] rtd MARCY ESPINOZA 06/05 Released with Work/Duty Limitations [employer](T MC Ambulat ory) [employer](TMC Ambulator y) OUTPATIENT [id number] SAM MCKEON 06/14 Released with Work/Duty Limitations [employer](T MC Ambulat ory) [facility] access hospital) OUTPATIENT [id number] SELF CARE CLASS [place] 06/30 Released w/o Limitations [facility]) [facility]) OUTPATIENT [id number] right knee pain for 5 days DEJA GARCIA 07/12 Released with Work/Duty Limitations [facility](Fami ly Practic e Combine d) [facility]) OUTPATIENT [id number] l HIP BACK PAIN BRETT RIVAS Leola 07/23 Released with Work/Duty Limitations [facility](Fami ly Practic e Combine [facility]) [facility]) OUTPATIENT [id number] L hip pain JIHANBANDAR TREVIÑO Henrik 08/12 Released with Work/Duty Limitations [facility](Fami ly Practic e Combine d) [facility]) OUTPATIENT [id number] broken nose DEJA GARCIA 08/16 Released with Work/Duty Limitations [facility](Fami ly Practic e Combine d) [facility](Hear ing Conservat ion [facility]) OUTPATIENT [id number] in-proc essing/ pcs AIME MEADE Sherine 09/20 Released w/o Limitations [facility](He aring Conserv ation [facility]) [facility]) OUTPATIENT [id number] Inproce ROM Corcoran 09/21 Released w/o Limitations [facility]) [facility]) OUTPATIENT [id number] sor[address]ALD Lane 10/13 Released with Work/Duty Limitations [facility]) [facility](Immi gration Phys Exam) OUTPATIENT [id number] possibl e sinus infecti on [facility] 11/03 Released w/o Limitations [facility](Im migrati on Phys Exam) [facility](Immi gration Phys Exam) OUTPATIENT [id number] back pain/wr ist pain possibl e referra l [facility] 11/16 Released with Work/Duty Limitations [facility](Im migrati on Phys Exam) [facility](Occu pational Therapy) OUTPATIENT [id number] joint pain, localiz ed in the wrist CLARY NDIAYE 12/07 Released w/o Limitations [facility](Oc cupatio nal Therapy ) [facility](Immi gration Phys Exam) OUTPATIENT [id number] crack on left foot [facility] 12/24 Released w/o Limitations [facility](Im migrati on Phys Exam) [facility](Immi gration Phys Exam) OUTPATIENT [id number] asthma evaluat ion GERALD FLORES 03/16 Released w/o Limitations [facility](Im migrati on Phys Exam) [facility](Immi gration Phys Exam) OUTPATIENT [id number] back pain GERALD FLORES 06/01 Released with Work/Duty Limitations [facility](Im migrati on Phys Exam) [facility](Immi gration Phys Exam) OUTPATIENT [id number] follow up GERALD FLORES 06/28 Released with Work/Duty Limitations [facility](Im migrati on Phys Exam) [facility](Phys ical Therapy Tran) OUTPATIENT [id number] VICTOR HUGO RODRIGUEZ 06/29 Released with Work/Duty Limitations [facility](Ph ysical Therapy Tran ) [facility](Phys ical Therapy Tran) OUTPATIENT [id number] MARTINSJEMMA PINA III 07/06 Released w/o Limitations [facility](Ph ysical Therapy Tran ) [facility](Immi gration Phys Exam) OUTPATIENT [id number] pap CANDACE CORDOVA 07/12 Released w/o Limitations [facility](Im migrati on Phys Exam) [facility](Phys ical Therapy Tran) OUTPATIENT [id number] MARTINSJEMMA PINA [facility] 07/13 Released w/o Limitations [facility](Ph ysical Therapy Tran ) [facility](Phys ical Therapy Tran) OUTPATIENT [id number] MARTINSJEMMA PINA [facility] 07/15 Released w/o Limitations [facility](Ph ysical Therapy Tran ) [facility](Immi gration Phys Exam) TELE CONSULT [id number] lab result CANDACE CORDOVA 07/15 [facility](Im migrati on Phys Exam) [facility](Epid emiology) TELE CONSULT [id number] CT (+) JAMEL DE LA O 07/19 [facility](Ep idemiol ogy) [facility](Epid emiology) OUTPATIENT [id number] ACUTE/P T JAMEL DE LA O 07/25 Released w/o Limitations [facility](Ep idemiol ogy) [facility](Immi gration Phys Exam) OUTPATIENT [id number] lower back/po ssible ortho referra GERALD [place] 08/10 Released with Work/Duty Limitations [facility](Im migrati on Phys Exam) [facility](Phys ical Medicine [place]) OUTPATIENT [id number] 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 DEMETRIUS LAWTON 09/02 Released w/o Limitations [facility](Ph ysical Medicin e [place]) [facility](Immi gration Phys Exam) OUTPATIENT [id number] F/U MRI SANDRAJENNIFERGERALD W 09/20 Released with Work/Duty Limitations [facility](Im migrati on Phys Exam) [facility](Immi gration Phys Exam) OUTPATIENT [id number] back pain CHAVO, MARIAM Lees 10/31 Released w/o Limitations [facility](Im migrati on Phys Exam) [facility](Orth opedics Spine) OUTPATIENT [id number] 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, first spine per referra MIGNON Saleh 11/15 Released with Work/Duty Limitations [facility](Or thopedi cs Spine) [facility](Eduardo ology/Hea ring Conservat ion) OUTPATIENT [id number] Periodi STEVAN Durán 11/18 Released w/o Limitations [facility](Au diology /Hearin g Conserv ation) [facility](Phys ical Therapy) OUTPATIENT [id number] MEB ROM for L/S Spine RK, MAYA BROWN 11/21 Released w/o Limitations [facility](Ph ysical Therapy ) [facility](Opto metry [facility]) OUTPATIENT [id number] med physicRASHAD Kurtz 11/21 Released w/o Limitations [facility](Op tometry [facility]) [facility](Immi gration Phys Exam) OUTPATIENT [id number] phase II pe (meb) ADRIÁN KHAN 11/25 Released w/o Limitations [facility](Im migrati on Phys Exam) [facility](Immi gration Phys Exam) OUTPATIENT [id number] deviate d nasal septum CANDACE CORDOVA 12/16 Released w/o Limitations [facility](Im migrati on Phys Exam) [facility](Immi gration Phys Exam) OUTPATIENT [id number] knee pain (deplet ed reflexe s) BANDAR FREED 01/19 Released w/o Limitations [facility](Im migrati on Phys Exam) [facility](Immi gration Phys Exam) OUTPATIENT [id number] referra l for sleep study KEYONSHANNAN BAE Nata 01/20 Released w/o Limitations [facility](Im migrati on Phys Exam) [facility] LUKAS Diaz(Certified Income Tax Preparer al Medicine) TELE CONSULT [id number] Per TDRL require mentSONIA Bui 03/15 [facility](Inte rnal Medicin e) [facility] LUKAS [facility] M01D Cats) OUTPATIENT [id number] TDRL SONIA SAEZ 04/10 Released w/o Limitations [facility] LUKAS Diaz(AMH M01D Cats) [facility] LUKAS Diaz(P T Clinic) OUTPATIENT [id number] ROM FOR TDRL JOSE RAUL SALAZAR ROMLAITH LEON 04/10 Released w/o Limitations [facility] LUKAS Diaz(P T Clinic) [facility] SELF CARE MNGMENT TRAINING [id number] Diagnos is: ICD-10- CM M79.671 Pain in right foot
SANTANA STEELE 08/07 [facility] Outpatient Encounter [id number] 08/08 [facility] HC PRO PHONE CALL 5-10 MIN [id number] Diagnos is: ICD-10- CM Z13.89 Encount er for screeni ng for other disorde r
MAIN,RENO NNE K 08/20 [facility] Outpatient Encounter [id number] 08/20 [place] [facility] OFFICE O/P EST HI 40-54 MIN [id number] Diagnos is: ICD-10- CM R53.82 Chronic fatigue , unspeci fied
LEOPOLDO GUERRERO L 09/03 [place] [facility] Outpatient Encounter [id number] 09/04 [place] [facility] NEUROMUSCU LAR REEDUCATIO N [id number] Diagnos is: ICD-10- CM M25.552 Pain in left hip<br/ > SANTANA STEELE L 09/04 [facility] OFFICE O/P NEW LOW 30-44 MIN [id number] Diagnos is: ICD-10- CM H52.03 Hyperme tropia, bilater al
YUAN DAVIS M 09/18 [facility] Outpatient Encounter [id number] 09/27 [facility] OFFICE O/P NEW MOD 45-59 MIN [id number] Diagnos is: ICD-10- CM K58.2 Mixed irritab le bowel syndrom e
Sherine HOLM ISAAC R 09/27 [facility] Outpatient [facility]counter [id number] 10/08 [facility] PSYCH DIAG EVAL W/MED SRVCS [id number] [id number] Diagnos is: ICD-10- CM F41.9 Anxiety disorde r, unspeci fied
RAMPART,AB IGAIL E 10/09 [place] [facility] [place] [facility] Outpatient Encounter [id number] 10/14 [place] [facility] [place] [facility] Outpatient Encounter [id number] 10/15 [place] [facility] [place] [facility] SELF CARE MNGMENT TRAINING [id number] Diagnos is: ICD-10- CM M25.552 Pain in left hip<br/ > SANTANA STEELE L 10/16 [facility] [place] [facility] OFFICE O/P EST MOD 30-39 MIN [id number] Diagnos is: ICD-10- CM R09.81 Nasal congest ion<br/ > ALBERTO ESTRADAMae 10/16 [facility] [place] [facility] Outpatient Encounter [id number] 10/16 [facility] [place] [facility] OFFICE O/P EST LOW 20-29 MIN [id number] Diagnos is: ICD-10- CM L70.8 Other acne
LEOPOLDO GUERRERO L 10/25 [facility] [place] [facility] Outpatient Encounter [id number] 10/28 [facility] [place] [facility] Outpatient Encounter [id number] 11/13 [place] [facility] [place] [facility] Outpatient Encounter [id number] 11/18 [facility] [place] [facility] MANUAL THERAPY 1/> [facility] [id number] Diagnos is: ICD-10- CM M25.552 Pain in left hip<br/ > SANTANA STEELE L 11/20 [facility] [place] [facility] OFFICE O/P EST HI 40-54 MIN [id number] Diagnos is: ICD-10- CM F41.9 Anxiety disorde r, unspeci fied
RAMPART,AB IGAIL E 11/28 [place] [facility] [place] [facility] Outpatient Encounter [id number] SHAHANA NGUYEN 12/09 [place] [facility] [place] [facility] Outpatient Encounter [id number] 12/11 [place] [facility] [place] [facility] OFFICE O/P EST LOW 20-29 MIN [id number] Diagnos is: ICD-10- CM R09.81 Nasal congest ion<br/ > JESSE BRUCE 12/13 [place] [facility] [place] [facility] Outpatient Encounter [id number] 12/17 [facility] [place] [facility] MANUAL THERAPY 1/> [facility] [id number] Diagnos is: ICD-10- CM M25.552 Pain in left hip<br/ > SANTANA STEELE 12/24 [facility] [place] [facility] Outpatient Encounter [id number] 12/26 [facility] [place] [facility] Outpatient Encounter [id number] 12/26 [facility] [place] [facility] OFFICE O/P EST MOD 30-39 MIN [id number] [id number] Diagnos is: ICD-10- CM E66.01 Morbid (severe ) obesity due to excess calorie s
LEOPOLDO GUERRERO 12/31 [place] [facility] [place] [facility] Outpatient Encounter [id number] 01/01 [place] [facility] [place] [facility] Outpatient Encounter [id number] 01/16 [facility] [place] [facility] OFFICE O/P EST HI 40-54 MIN [id number] [id number] Diagnos is: ICD-10- CM F41.9 Anxiety disorde r, unspeci fied
RAMPART,AB IGAIL E 01/16 [place] [facility] [place] [facility] Outpatient Encounter [id number] 01/30 [place] [facility] [place] [facility] Outpatient Encounter [id number] 02/04 [place] [facility] OFFICE O/P EST LOW 20-29 MIN [id number] Diagnos is: ICD-10- CM F90.0 Attn-de fct hyperac tivity disorde r, predom inatten tive type
RICK DEL ROSARIO A 02/12 [facility] [place] [facility] Outpatient Encounter [id number] 03/19 [place] [facility] [place] [facility] Outpatient Encounter [id number] 03/20 [place] [facility] [place] [facility] Outpatient Encounter [id number] 04/03 [facility] [place] [facility] Outpatient Encounter [id number] 04/04 [facility] [place] [facility] Outpatient Encounter [id number] SA SAI BRITT R 04/07 [place] [facility] [place] [facility] Outpatient Encounter [id number] 04/08 [place] [facility] [place] [facility] Outpatient Encounter [id number] [id number] AMBER GANNON A 04/08 [facility] [place] [facility] Outpatient Encounter [id number] 04/22 [place] [facility] [place] [facility] Outpatient Encounter [id number] [id number] 04/23 [place] [facility] [place] [facility] Outpatient Encounter [id number] 04/30 [place] [facility] [place] [facility] Outpatient Encounter [id number] 05/07 [place] [facility] [place] [facility] Outpatient Encounter [id number] 05/28 [place] [facility] [place] [facility] Outpatient Encounter [id number] 05/29 [place] [facility] [place] [facility] OFF/OP CNSLTJ NEW/EST MOD 40 [id number] Diagnos is: ICD-10- CM M54.50 Low back pain, unspeci fied
AUSTIN ISABEL 06/02 [facility] [place] [facility] QNHP OL DIG ASSMT&MGMT 11-20 [id number] Diagnos is: ICD-10- CM E66.01 Morbid (severe ) obesity due to excess calorie s
MARIA LUZ GATES 06/03 [place] [facility] [place] [facility] Outpatient Encounter [id number] GOGO TAVERAS 06/04 [place] [facility] [place] [facility] Outpatient Encounter [id number] 06/09 [place] [facility] [place] [facility] Outpatient Encounter [id number] 06/10 [place] [facility] [place] [facility] Outpatient Encounter [id number] [id number] 06/23 [place] [facility] [place] [facility] OFFICE O/P EST MOD 30 MIN [id number] [id number] Diagnos is: ICD-10- CM J34.2 Deviate d nasal septum< br/> HAMLAR,VAL ID 06/25 [place] [facility] [place] [facility] Outpatient Encounter [id number] 06/29 [place] [facility] [place] [facility] Outpatient Encounter [id number] [id number] 07/[address] [place] [address] [facility] [place] [facility] Outpatient Encounter [id number] 07/20 [place] [facility] [place] [facility] Outpatient Encounter [id number] [id number] SA RA Nata BRITT 07/[address] [place] [address] [facility] [place] [facility] Outpatient Encounter [id number] 07/21 [place] [facility] [place] [facility] Outpatient Encounter [id number] 07/21 [place] [facility] [place] [facility] HC PRO PHONE CALL 11-20 MIN [id number] [id number] Diagnos is: ICD-10- CM O09.521 Supervi ozzie of elderly multigr avida, first trimest er
STEVE SOLOMON 07/21 [place] [facility] [place] [facility] Outpatient Encounter [id number] 07/21 [place] [facility] [place] [facility] Outpatient Encounter [id number] Kajal MCDONALD 07/22 [place] [facility] [place] [facility] Outpatient Encounter [id number] 07/22 [place] [facility] [place] [facility] Outpatient Encounter [id number] 08/07 [place] [facility] [place] [facility] Outpatient [facility]counter [id number] 08/11 [place] [facility] [place] [facility] HC PRO PHONE CALL 5-10 MIN [id number] [id number] Diagnos is: ICD-10- CM O09.521 Supervi ozzie of elderly multigr avida, first trimest er
STEVE SOLOMON 09/04 [facility] [place] [facility] HC PRO PHONE CALL 5-10 MIN [id number] [id number] Diagnos is: ICD-10- CM O09.521 Supervi ozzie of elderly multigr avida, first trimest er
SOLOMON, STEVE K 09/07 [place] [facility] [place] [facility] Outpatient Encounter [id number] 09/23 [place] [facility] [place] [facility] Outpatient Encounter [id number] 09/23 [place] [facility] [place] [facility] HC PRO PHONE CALL 5-10 MIN [id number] [id number] Diagnos is: ICD-10- CM O09.522 Supervi ozzie of elderly multigr avida, second trimest er
SOLOMON, STEVE K 10/28 [place] [facility] [place] [facility] Outpatient Encounter [id number] 10/29 [place] [facility] [place] [facility] HC PRO PHONE CALL 5-10 MIN [id number] [id number] Diagnos is: ICD-10- CM O09.523 Supervi ozzie of elderly multigr avida, third trimest er
SOLOMON, STEVE K 01/05 [place] [facility] [place] [facility] HC PRO PHONE CALL 5-10 MIN [id number] [id number] Diagnos is: ICD-10- CM O09.523 Supervi ozzie of elderly multigr avida, third trimest er
SOLOMON, STEVE K 01/13 [place] [facility] Procedures Combined list of: 1) Procedures from Department of Veterans Affairs facilities going back up to thelast 18 months, not all CT non-surgical procedures are included; 2) All procedures from the Department of Defense facilities. Procedure Procedure Type Code Date Perfomer Comments Sournidia e HEPATITIS A VACCINE (HEPA), ADULT DOSAGE, FOR INTRAMUSCULAR USE 8 [facility] SKIN TEST; TUBERCULOSIS, INTRADERMAL 8 [facility] PHYS/OTH QUALIFIED HEALTH ENTRY LEVEL ACCOUNT REPRESENTATIVE QUALIFIED,EDUCATION, TRAIN,LICENSURE/REGU LATION (WHEN APPLICABLE) EDUC SER RENDERED TO PATS IN A GRP SETTING (EG,,OBESITY ,OR DIABETIC INSTRUCT) 8 [facility] RANGE OF MOTION MEASUREMENTS AND REPORT (SEPARATE PROCEDURE); EACH EXTREMITY (EXCLUDING HAND) OR EACH TRUNK SECTION (SPINE) 2 [facility] EDUCATIONAL SUPPLIES, SUCH BOOKS, TAPES, AND PAMPHLETS, FOR THE PATIENT'S EDUCATION AT COST TO PHYSICIAN OR OTHER QUALIFIED HEALTH ENTRY LEVEL ACCOUNT REPRESENTATIVE 8 [facility] ANTHRAX VACCINE, FOR SUBCUTANEOUS OR INTRAMUSCULAR USE 9 [facility] COLLECTION OF VENOUS BLOOD BY VENIPUNCTURE 9 [facility] INDIVIDUAL PSYCHOTHERAPY, INSIGHT ORIENTED, BEHAVIOR MODIFYING AND/OR SUPPORTIVE, IN AN OFFICE OR OUTPATIENT FACILITY, APPROXIMATELY 20 TO 30 MINUTES [id number] WITH THE PATIENT 9 [facility] RANGE OF MOTION MEASUREMENTS AND REPORT (SEPARATE PROCEDURE); EACH EXTREMITY (EXCLUDING HAND) OR EACH TRUNK SECTION (SPINE) 9 [facility] SKIN TEST; TUBERCULOSIS, INTRADERMAL 9 [facility] COLLECTION OF VENOUS BLOOD BY VENIPUNCTURE 9 [facility] PSYCHIATRIC DIAGNOSTIC INTERVIEW EXAMINATION 9 [facility] AUDIOMETRIC TESTING OF GROUPS 9 [facility] APPLICATION OF A MODALITY TO 1 OR MORE AREAS; HOT OR COLD PACKS 9 [facility] APPLICATION OF A MODALITY TO 1 OR MORE AREAS; HOT OR COLD PACKS 9 [facility] SCREENING PAPANICOLAOU SMEAR; OBTAINING, PREPARING AND CONVEYANCE OF CERVICAL OR VAGINAL SMEAR TO LABORATORY 9 [facility] INDIVIDUAL PSYCHOTHERAPY, INSIGHT ORIENTED, BEHAVIOR MODIFYING AND/OR SUPPORTIVE, IN AN OFFICE OR OUTPATIENT FACILITY, APPROXIMATELY 45 TO 50 MINUTES [id number] WITH THE PATIENT 9 [facility] THERAPEUTIC PROCEDURE, 1 OR MORE AREAS, EACH 15 MINUTES; THERAPEUTIC EXERCISES TO DEVELOP STRENGTH AND ENDURANCE, RANGE OF MOTION AND FLEXIBILITY 9 [facility] SELF-CARE/HOME MANAGMENT TRAIN (EG,ACT OF DAILY LIVING (ADL) &COMPENSAT TRAIN,MEAL PREPARATION,SAFETY PROCS,AND INSTRUCT IN USE OF ASST TECHNOLOGY DEV/ADPT EQUIP) DIR ONE-ON-ONE CONT,EA [address] [facility] PSYCHIATRIC DIAGNOSTIC INTERVIEW EXAMINATION 9 [facility] INJECTION, PENICILLIN G BENZATHINE, UP TO 2,400,[address] [facility] THERAPEUTIC PROCEDURE, 1 OR MORE AREAS, EACH 15 MINUTES; THERAPEUTIC EXERCISES TO DEVELOP STRENGTH AND ENDURANCE, RANGE OF MOTION AND FLEXIBILITY 8 [facility] HEPATITIS A VACCINE (HEPA), ADULT DOSAGE, FOR INTRAMUSCULAR USE 8 [facility] AUDIOMETRIC TESTING OF GROUPS 8 [facility] Range Of Motion Evaluation Of Extremity Range Of Motion Evaluation Of Extremity [address] [facility] Psychotherapy Individual Approximately 30 Minutes Psychotherapy Individual Approximately 30 Minutes [id number] [facility] Range Of Motion Evaluation Of Extremity Range Of Motion Evaluation Of Extremity [address] [facility] Audiometry Group Testing Audiometry Group Testing [address] [facility] Modalities Heat Hot Packs Modalities Heat Hot Packs 59381 9 [facility] Physical Medicine - Group Physical Therapy Se ion Physical Medicine - Group Physical Therapy Session 93105 9 [facility] Modalities Heat Hot Packs Modalities Heat Hot Packs 44521 9 [facility] Physical Medicine - Group Physical Therapy Se ion Physical Medicine - Group Physical Therapy Session 10261 9 [facility] Screening papanicolaou smear; obtaining, preparing and conveyance of cervical or vaginal smear to laboratory [address] [facility] Clinical Social Work Individual Outpatient Counseling 45 Minutes Clinical Social Work Individual Outpatient Counseling 45 Minutes [address] [facility] Physical Therapy: ___ Se ion Segments, 15 Minutes Each Physical Therapy: ___ Session Segments, 15 Minutes Each 28579 9 [facility] Modalities Heat Hot Packs Modalities Heat Hot Packs 18293 9 [facility] Physical Medicine - Group Physical Therapy Se ion Physical Medicine - Group Physical Therapy Session 94353 9 [facility] Patient Counseling Medical Management Individual Patient Patient Counseling Medical Management Individual Patient 11851 9 GERALD FLORES DoD A e /Interv Discharge Meds Reconciled W/ Current Meds List [address] [facility] Physical Therapy Service Evaluation Physical Therapy Service Evaluation [address] [facility] Phys Therapy Education Self Care Training - Per 15 Minutes Phys Therapy Education Self Care Training - Per 15 Minutes 08979 9 VICTOR HUGO LAWRENCE Psychiatric Diagnostic Evaluation Comprehensive Examination Psychiatric Diagnostic Evaluation Comprehensive Examination [address] [facility] Patient Training And Self-Care Skills Patient Training And Self-Care Skills 72377 9 GERALD FLORES Patient Counseling Medical Management Individual Patient Patient Counseling Medical Management Individual Patient [id number] 9 GERALD FLORES A e /Interv Discharge Meds Reconciled W/ Current Meds List 9 GERALD FLORES Patient Counseling Medical Management Individual Patient Patient Counseling Medical Management Individual Patient [id number] 8 GERALD FLORES A e /Interv Discharge Meds Reconciled W/ Current Meds List [address] [facility] A isted Exercises For ROM Assisted Exercises For ROM [address] [facility] Occupational Therapy Evaluation Occupational Therapy Evaluation 99295 8 CLARY NDIAYE Oropharynx Culture Streptococcus Group A Beta Hemolytic Oropharynx Culture Streptococcus Group A Beta Hemolytic [address] [facility] Physician Supervised Injection Intramuscular Antibiotic Physician Supervised Injection Intramuscular Antibiotic [address] [facility] Audiometry Group Testing Audiometry Group Testing [address] [facility] Physician Supervised Services Provision Of Educational Supplies Physician Supervised Services Provision Of Educational Supplies [address] [facility] Threshold Audiogram (Pure Tone) Threshold Audiogram (Pure Tone) [address] [facility] Audiometry Group Testing Audiometry Group Testing [address] [facility] Special Physician Services Analysis Of Computerized Data Special Physician Services Analysis Of Computerized Data [address] [facility] Physician Supervised Services Provision Of Special Supplies Physician Supervised Services Provision Of Special Supplies [address] [facility] Physician Supervised Group Educational Services [address] [facility] Ear mold/insert, not disposable, any type [address] [facility] Ear Protector Attenuation Measurements Ear Protector Attenuation Measurements [address] [facility] Skin Test Anergy Tuberculin Intradermal Skin Test Anergy Tuberculin Intradermal [address] [facility] Hepatitis A Vaccine Adult Dosage (Intramuscular Use) Hepatitis A Vaccine Adult Dosage (Intramuscular Use) [address] [facility] Vaccines Viral Polio, Inactivated Vaccines Viral Polio, Inactivated [address] [facility] Meningococcal Polysaccharide Vaccine Meningococcal Polysaccharide Vaccine [address] [facility] Immunization Administration By Injection, Each Additional Vaccine [address] [facility] Td Vaccine Td Vaccine [address] [facility] Immunization Administration By Injection, One Vaccine Immunization Administration By Injection, One Vaccine [address] [facility] Social History Combined list of available smoking, tobacco, and other social history from Department of Defense and 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 Social History Type Response Date Comment Sourc e Tobacco smoking status NHIS VA-TOBACCO FORMER USER 07/22/2023 CORRINA TEIXEIRA [facility] History of tobacco use CT-TOBACCO QUIT 1 TO < 5 YRS 07/22/2023 [facility] History of tobacco use CT-TOBACCO FORMER USER 06/06/2022 [facility] History of tobacco use PREVIOUS SMOKER 11/21/2021 [facility] History of tobacco use CT-TOBACCO FORMER USER 09/06/2021 [facility] History of tobacco use VA-TOBACCO USER E VERY DAY 11/03/2020 [facility] History of tobacco use CT-TOBACCO USE [place] 30 MIN OF WAKEUP 05/06/2018 [facility] This section is an empty social history section. [facility] Plan of Care List of future care activities from Department of 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 Additional future care activities may be listed in the Assessment and Plan section. Date/Time Care Activity Care Activity Detail Facili ty 04/13/2024 AMBULATORY - NONE AMBULATORY - NONE SIVA JOHANSENMae [facility] 02/18/2024 Laboratory - Induction Coordination Engineer ry Order CBC and DIFF BLOOD SP ONCE [facility] 02/18/2024 Laboratory - Induction Coordination Engineer ry Order ACT PART THROMBO TIME PLASMA SP ONCE [facility] 02/18/2024 Laboratory - Induction Coordination Engineer ry Order PROTHROMBIN TIME/INR PLASMA SP ONCE [facility] 02/18/2024 Laboratory - Induction Coordination Engineer ry Order HEMOGLOBIN A1C BLOOD SP ONCE [facility] 02/18/2024 Laboratory - Induction Coordination Engineer ry Order BASIC METABOLIC PANEL+MG PLASMA SP ONCE [facility] 03/04/2024 Laboratory - Induction Coordination Engineer ry Order HCG, QUAL URINE SP ONCE [facility]
--- OUTSIDE RECORDS SUMMARY | 2024-02-04 13:47 | XMS_ITS | Referral Summary ---
Author Organization [facility] Address [address] [place] [address] Care Team Providers Care Repair Weaver Name Role Phone No Ref-Primary, Physician Primary [...] file Plan of Treatment Not on file Insurance [facility] [place] [address] [place] Care Teams Repair Weaver Relationship Specialty Start Date End Date No Ref-Primary, Physician PCP - General 10/20/23
--- OUTSIDE RECORDS SUMMARY | 2024-02-04 13:47 | XMS_ITS | Clinical Summary ---
Author Organization [facility] Address [address] [place] [address] Care Team Providers Care Ebay Reseller Name Role Phone Unavailable Primary Care Provider [...] for each transition of care or referral[facility] Social History Tobacco Use Types Packs/Day Years [...] patient's age to complete this topic RSV Aged Out No longer eligi ble based on patient's age to complete this topic MCV4 Aged Out No longer eligi ble based on patient's age to complete this topic Pneumococcal Aged Out No longer eligi ble based on patient's age to complete this topic Kailey Jackson Personal/Family Self 1990 [id number] [place] [id number] Kailey Jackson Workers Comp Self 1990 [address] [place] [id number]
--- OUTSIDE RECORDS SUMMARY | 2024-02-04 13:48 | XMS_ITS | Referral Summary ---
Author Organization [facility] Address [address] [place] [address] Care Team Providers Care Petroleum Engineering Professor Name Role Phone Unavailable Primary Care Provider Unavailabl e Source Comments Patient records contain information from all sites at [facility]. For routine questions regarding patient records, call [phone] during business hours, M-F 8:00 AM - 5:00 PM Central Time. Record requests for emergency care only can be directed to [phone] at any time.[facility] Allergies No known active allergies Medications pyridoxine HCl, vitamin B6, (PYRIDOXINE, VITAMIN B6, [...] (VITAMIN B-12 ORAL) Take by mouth. Active prenat.vits,kandy, [id number]-paoo-[id number] tablet Take 1 tablet by mouth daily. 07/17/2023 Active Active Problems Patient Care Coordination No te Formatting of this note migh t be different from the original. Boyfrienmary Ulloa. His first baby! She is moving [facility] during the (likely summertime) Problem Noted Date Diagnosed Date Complication Morbid Obesity Body Mass Index Greater Than 40 08/13/2023 Body Mass Index 50.0 To 59.9 Adult 08/13/2023 Elderly Multigravida Greater Than 35 Y ear Old 08/13/2023 Overview (08/13/2023): Desires NIP Panorama, scheduled 08/20/23 Preexisting Hypertension 08/13/2023 Overview (08/13/2023): Baseline preeclampsia labs collected at [facility] OB Will begin 81 mg ASA at 12 weeks Depression Anxiety 08/13/2023 High Risk 08/13/2023 Overview (08/13/2023): BMI >50 Chronic HTN Elderly multigravida Anxiety/depression We discussed advanced level [place], SEBASTIAN consult. She is very likely moving to [facility], and will be transferring her care [...] drink = 0.6 oz pur e alcohol) [facility] Utilities Answer Date Recorded In the past 12 months has e [employer], gas, oil, or water company threatened to [...] Assigned at Female 08/08/2023 3:48 PM CDT Legal Sex Female 9:20 AM CDT Gender Identity Female 08/08/2023 3:48 PM [...] Type Associated Problems Recent Progress Patient-Stated? Author [facility] Care Plan for Healthy Care Plan [facility] Care Plan for Healthy No Support, [facility] - Nicotine Dependency Chronic Care Plan [facility] Care Plan for Healthy No Support, [employer] [...] S Negative Negative 08/14/2023 10:25 AM CDT [facility] Comment: Consumption of high-dose biotin supplement within 12 hours of blood collection for this test can cause false-negative results. Blood (Blood, Venous) 08/13/2023 4:52 PM CDT 08/14/2023 7:24 AM CDT us Loreta Ramirez APRN, C.N.P. LAB MICROBIOLOGY - BLO OD ORDERABLES Final Result [facility] [address] [place] [address] [facility] [address] [place] [address] * HIV-1/-2 Ag and Ab Scrn, Plasma [...] 4:52 PM CDT 08/13/2023 8:38 PM CDT us Loreta Ramirez APRN, C.N.P. LAB MICROBIOLOGY - BLO OD ORDERABLES Final Result [facility] [address] [place] [address], [place] [facility] [facility] [place] [address] [place] [address] from Last 3 Months or Most Recently Relevant to Health Maintenance Additional Health Concerns Active Problems Noted Date Diagnosed Date [facility] Care Plan for Healthy 08/30 Insurance [facility]
--- OUTSIDE RECORDS SUMMARY | 2024-02-04 13:48 | XMS_ITS ---
Author Organization [facility] Address [address] [place] [address] Care Team Providers Care Employee Benefits Manager Name Role Phone Unavailable Unavailable Unavailable Surgery Details Not on file Complications Check Surgery Details section. Procedure Estimated Blood Loss Check Surgery Details section. Procedure Findings Check Surgery Details section. Procedure Specimens Taken Check Surgery Details section.
--- OUTSIDE RECORDS SUMMARY | 2024-02-04 13:48 | XMS_ITS | Clinical Summary ---
Author Organization [facility] Address [address] [place] [address] Care Team Providers Care Computer Network Specialist Name Role Phone Unavailable Primary Care Provider Unavailabl e Source Comments Patient records contain information from all sites at [facility]. For routine questions regarding patient records, call [phone] during business hours, M-F 8:00 AM - 5:00 PM Central Time. Record requests for emergency care only can be directed to [phone] at any time.[facility] Allergies No known active allergies Medications pyridoxine [...] B-12 ORAL) Take by mouth. Active prenat.vits,kandy, [id number] tablet Take 1 tablet by mouth daily. 07/17/2023 Active Active Problems Patient Care Coordination No te Formatting of this note migh t be different from the original. Boyfrienmary Ulloa. His first baby! She is moving [facility] during the (likely summertime) Problem Noted Date Diagnosed Date Complication Morbid Obesity Body Mass Index Greater Than 40 08/13/2023 Body Mass Index 50.0 To 59.9 Adult 08/13/2023 Elderly Multigravida Greater Than 35 Y ear Old 08/13/2023 Overview (08/13/2023): Desires NIP Panorama, scheduled 08/20/23 Preexisting Hypertension 08/13/2023 Overview (08/13/2023): Baseline preeclampsia labs collected at [facility] OB Will begin 81 mg ASA at 12 weeks Depression Anxiety 08/13/2023 High Risk 08/13/2023 Overview (08/13/2023): BMI >50 Chronic HTN Elderly multigravida Anxiety/depression We discussed advanced level USSEBASTIAN consult. She is very likely moving to [facility], and will be transferring her care [...] drink = 0.6 oz pur e alcohol) [facility] Utilities Answer Date Recorded In the past 12 months has [employer], gas, oil, or water company [...] Health Maintenance Due Date Last Done Comments Cervical/Vaginal Cancer Screening 1990 IPV Vaccines (2 of 3 - Adult catch-up series) 05/11/2007 04/13/2007 Hepatitis B Vaccines (1 of 3 - 19+ 3-dose series) 2007 COVID-19 Vaccine ( - season) 2023 Influenza Vaccine (#1) 2023 3, [...] 10/21/2007, 04/13/19 08 HPV Vaccines Completed 02/11/2012, 04/02, 08/29/2008, Additional history exists Depression Screening (Annual PHQ-2) Completed 08/13/2023 HIV Screening Completed 08/13/2023 Hepatitis C Screening Completed 08/13/2023 Pneumococcal vaccine (0-64 years) Aged Out No longer eligible based on patient's age to complete this topic Goals Goal Patient Goal Type Associated Problems Recent Progress Patient-Stated? Author [facility] Care Plan for Healthy Care Plan [facility] Care Plan for Healthy No Support, [facility] - Nicotine Dependency Chronic Care Plan [facility] Care Plan for Healthy No Support, [...] S Negative Negative 08/14/2023 10:25 AM CDT [facility] Comment: Consumption of high-dose biotin supplement within 12 hours of blood collection for this test can cause false-negative results. Blood (Blood, Venous) 08/13/2023 4:52 PM CDT 08/14/2023 7:24 AM CDT us Loreta Ramirez APRN, C.N.P. LAB MICROBIOLOGY - BLO OD ORDERABLES Final Result [facility] [address] [place] [address] [facility] [address] [place] [address] * HIV-1/-2 Ag and Ab Scrn, Plasma [...] MICROBIOLOGY - BLO OD ORDERABLES Final Result [facility] [address] [place] [id number], [place] ECLR [facility] in [address] [address] from Last 3 Months or Most Recently Relevant to Health Maintenance Additional Health Concerns Active Problems Noted Date Diagnosed Date [facility] Care Plan for Healthy 08/30 Insurance [facility]
--- OUTSIDE RECORDS SUMMARY | 2024-02-04 13:48 | XMS_ITS | Clinical Summary ---
Author Organization [employer] [facility] Address [place], [place] [address] Care Team Providers Care Maintenance Apprentice Name Role Phone AlejaAbiola Primary Care Provider [phone] Allergies No known active allergies Medications Medication Sig Dispensed Refills Start Date End Date Status NIFEdipine ER (ADALAT CC) 30 mg extended-Release tablet Take 1 Tablet by mouth once daily. 07/19/2022 Active famotidine (PEPCID) 20 mg tabletIndications:G astroesophageal reflux disease, unspecified whether esophagitis present Take 1 Tablet (20 mg) by mouth two times daily. 60 Tablet 07/17/2023 Active Rocwuepl-Xk-Fan-Fe- FA tab tabletIndications:V aginal bleeding in Take 1 Tablet by mouth once daily. 90 Tablet 07/17/2023 Active pyridoxine HCl, vitamin B6, (VITAMIN B-6 ORAL) Take by mouth. Ac tive cholecalciferol, Vitamin D3, (Vitamin D-3) 5,000 unit tab tablet Take by mouth once daily. Active cyanocobalamin, vitamin B-12, (VITAMIN B-12 ORAL) Take by mouth. A ctive aspirin 81 mg cap Take 81 mg by mouth once daily. Active albuterol HFA (PRO-AIR; VENTOLIN; PROVENTIL) 90 mcg/actuation inhalerIndications: SOB (shortness of breath) Inhale 1-2 Puffs by mouth every 4 hours if needed for Shortness Of Breath or Wheezing. 1 Each 10/08/2023 Active imiquimod (ALDARA) 5 % creamIndications:Ge nital warts Apply 1 Packet topically to affected area(s) every Friday, Friday and Friday. Apply at bedtime and leave on skin for 8 hours. DO NOT USE WHILE . 24 Each 11 10/31/2023 Active amoxicillin-clavula lionel (AUGMENTIN) 875-125 mg tabletIndications:S inusitis, unspecified chronicity, unspecified location Take 1 Tablet by mouth two times daily with meals for 5 days. 10 Tablet 12/31/2023 01/05/2024 Active Problems Problem Noted Date Diagnosed Date Genital warts 10/29/2023 Generalized anxiety disorder 06/05/2023 LGSIL of cervix of undetermined significance Overview (08/06/2023): 09/29/13 ASCUS/HPV negative 05/07/16 NIL 12/27/19 LSIL/HPV negative 05/29/23 ASCUS/HPV+, HPV 16/18 Negative Plan: Colposcopy (patient as of 08/06/23, provider advised to discuss with her [employer] EXTINGUISHER SPRINKLER INSPECTOR provider) Chronic fatigue 05/07/2016 Overview (09/09/2017): 09/09/2017: Cardiology evaluation. Benign palpitations. Vitamin D deficiency 10/30/2012 Overview (06/20/2017): VITAMIN D TOTAL Date Value Ref Range Status 06/19/2017 22.9 (L) 30.0 - 80.0 ng/mL Final 10/17/2015 30.1 30.0 - 80.0 ng/mL Final 10/29/2012 18.4 (L) 30.0 - 80.0 ng/mL Final 06/20/2017: [place] [address]57 IU twice weekly x8 weeks, vit d [...] Bottle feeding. GBS - neg Guerline Jackson [[id number]] GEOVANY 12/30/2011 (05/02/11 to present) [facility] Date: [birth year] Age (as of 08/12/11): 21 Race/Ethnicity: Not /Not History: Estimated Date of Delivery: 12/30/11 Gestational Age: 20w0d Blood Type: O Rh Positive Patient Address Address Home Phone Email [phone] E [phone] [email or web address] [phone] Patient Background Race/Ethnicity Marital Status Not /Not [...] safety in , and recommended care. Reviewed [facility]'s Preparing for Class Schedule. 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 Progress Notes (Episode) 07/22/2011 GA: 17w0d Doing much better today. Was seen on 07/18 for abdominal tightening/cramping. Now is back to normal. Ultrasound was fine on Friday. Declines quad screen today. No movement yet. No bleeding. Feeling well otherwise PLAN: -- Follow up in 3 weeks -- 20 week ultrasound around that time. -- Xhmm-[id number] for chlamydia today Lary Aguilera MD .................... [...] Delaney MD on 04/29/2011 9:03 AM Class: [facility] History Smoking Status:Current Everyday Smoker (Cigarettes); [...] 7. Baby's care provider (Please use notes), Care / Rooming in, Circumcision 8. Brochures [...] Chlamydia 2009 Chickenpox - childhood Interviewed by: cam OB Hyperlinks OB Labs Linked to Episode [...] screen, but probably not -- Will need kwvm-jt-vyus for chlamydia next month. 06/04/2011 10w1d First [...] Encounters Date Type Department Care Team Description 12/31/2023 2:00 PM CDT Office Visit [facility] [address] [place] [address] Moe Mendez NP Sinus Problem (Patient presents with pressure, cough,. Has been going on for x 1 week /) 12/31/2023 Travel 12/17/2023 Travel 11/27/2023 2:00 PM CDT Office Visit [facility] [address] [place] [address] Moe Mendez NP UTI (patient presents with burning upon urination and she states that it feels like she isn't fully emptying her bladder- symptoms began 1 week ago. patient is 25 weeks ) 11/27/2023 Travel 11/25/2023 4:05 PM CDT Office Visit [facility] [address] [facility] [place] [address] Monica Reyes PA Derm Problem (wart between rectum and vagina) 11/25/2023 Travel 11/11/2023 Nurse Triage [facility] [address] [facility] [place] [address] Abiola Masterson DO Results from Last 3 Months Immunizations Name Administration [...] 3 04/18/2023 Social Connections Answer Date Recorded Do you often feel lonely or isolated from those around you? 0 04/18/2023 Financial Resource Strain Answer Date R ecorded Difficulty of Paying Living Expenses 3 04/18/2023 Difficulty of Paying Living Expenses Not on file 04/18/2023 Food Insecurity Answer Date Recorded Do you worry your food will run out before you are able to buy more? 1 04/18/2023 Transportation Needs Answer Date Record ed Does lack of transportation keep you from medica l appointments? 1 04/18/2023 Does lack of transportation keep you from work, meetings or getting things that you need? 1 04/18/2023 Housing Stability Answer Date Recorded What is your housing situation today? 1 04/18/2023 Comments Yes Sex and Gender [...] Livin g 9 9 Chris Matute Delivery Location:[facility] Comments:Prolonged sec ond stage Current Last Filed Vital Signs Vital Sign Reading Time Taken Comments Blood Pressure 142/82 12/31/2023 2:09 PM CDT Pulse 105 12/31/2023 2:09 PM CDT Temperature 36.7 ??C (98.1 ??F) 12/31/2023 2:09 PM CD T Respiratory Rate 18 12/31/2023 2:09 PM CDT Oxygen Saturation 97% 12/31/2023 2:09 PM CDT Inhaled Oxygen Concentration - - Weight 142.8 kg (314 lb 14.4 oz) 12/31/2023 2:09 PM CDT Height 165.1 cm (5' 5) 07/16/2023 9:05 PM CDT Body Mass Index 52.4 07/16/2023 9:05 PM CDT Plan of Treatment Upcoming Encounters Date Type Department Care Team (Late st Contact Info) Description 04/14/2024 2:30 PM INTELLECTUAL PROPERTY LEGAL ASSISTANT Telemedicine [facility] [address] [place] [phone] Valencia Barraza PA [address] [place] [address] Health Maintenance Due Date Last [...] vaccine for adults or (1 - 1-dose 75+ series) 2063 Tdap Completed 10/22/2011, 04/13/2007 HIV for age [...] 2:01 PM CDT Vaginal pain Urethritis, nonspecific ACID BLOWER THIN PREP PAP SCREEN IMAGED Routine 05/29/2023 3:02 PM INTELLECTUAL PROPERTY LEGAL ASSISTANT Screening for malignant neoplasm of cervix ANTI HIV 1/2 Routine 12/27/2019 4:02 PM CDT Screening examination for venereal disease ANTI HCV Routine 12/27/2019 4:02 PM CDT Screening examination for venereal disease from Last 3 Months or Most Recently Relevant to Health Maintenance Results * URINE CULTURE (11/27/2023 2:01 PM CDT) CULTURE 10-50,000 CFU/mL of multiple organisms, probable contaminants 11/28/2023 5:41 PM [address] [facility] Urine URINE SPECIMEN / Unknown Non-Blood / Unknown 11/27/2023 2:01 PM CDT 11/27/2023 2:01 PM CDT Moe Cortezisabellaharshad EMILY MICROBIOLOGY [facility] [address] [place] [address], [place] * (ABNORMAL) UA W/ SEDIMENT EXAM REFLEXED PER CRITERIA (11/27/2023 2:01 PM CDT) COLOR Yellow Yellow Color 11/27/2023 2:07 PM CDT [facility] [employer] CLARITY Clear Clear Clarity 11/27/2023 2:07 PM CDT [facility] [employer] SPECIFIC GRAVITY,URINE >=1.030(A) 1.010, 1.015, 1.020, 1.025 11/27/2023 2:[address] [facility] PH,URINE 6.0 6.0, 7.0, 8.0, 5.5, 6.5, 7.5, 8.5 11/27/2023 2:[address] [facility] UROBILINOGEN, QUALITATIVE Normal Normal EU/dl 11/27/2023 2:07 PM CDT [facility] PROTEIN, URINE Trace(A) Negative mg/dL 11/27/2023 2:07 PM CDT [facility] GLUCOSE, URINE Negative Negative mg/dL 11/27/2023 2:07 PM CDT [facility] KETONES,URINE Negative Negative mg/dL 11/27/2023 2:07 PM CDT [facility] BILIRUBIN,URI NE Negative Negative 11/27/2023 2:07 PM CDT [facility] OCCULT BLOOD,URINE Negative Negative 11/27/2023 2:[address] [facility] NITRITE Negative Negative 11/27/2023 2:07 PM CDT [facility] LEUKOCYTE ESTERASE Negative Negative 11/27/2023 2:[address] [facility] Urine URINE SPECIMEN / Unknown Non-Blood / Unknown 11/27/2023 2:01 PM CDT 11/27/2023 2:01 PM CDT Moe Mendez GAS UTILITY WORKER URINE [facility] [address] [place] [address], * (ABNORMAL) ACID BLOWER THIN PREP PAP SCREEN IMAGED [[id number]] (05/29/2023 3:02 PM INTELLECTUAL PROPERTY LEGAL ASSISTANT) Case Report Gynecologic Cytology Report ? Case: [id number] ? Authorizing Provider: ??Abiola Masterson DO ?Collected: ? 05/29/2023 1502 ? Ordering Location: ? [facility] ? Received: ?05/29/2023 1537 ? Clinic ? First Screen: ?Maurisio, Jere ? Pathologist: ? Sonia Nolasco ? MD Eloisa ? Specimen: ?ACID BLOWER ThinPrep Vial Screening, Cervical ? 06/06/2023 4:27 PM [facility] INTERPRETATION/ RESULT ATYPICAL SQUAMOUS CELLS OF UNDETERMINED SIGNIFICANCE (ASCUS)(A) (none) 06/06/2023 4:27 PM [facility] IMEN ADEQUACY Satisfactory for evaluation Endocervical component present 06/06/2023 4:27 PM INTELLECTUAL PROPERTY LEGAL ASSISTANT [facility] HPV REQUEST HPV and PAP 06/06/2023 4:27 PM INTELLECTUAL PROPERTY LEGAL ASSISTANT [facility] Date of LMP unknown 06/06/2023 4:27 PM INTELLECTUAL PROPERTY LEGAL ASSISTANT [facility]- EN[facility]AL LABORAT[facility] Last Pap Date 12/27/19 06/06/2023 4:27 PM [facility] Last Pap Result LSIL 4:27 PM INTELLECTUAL PROPERTY LEGAL ASSISTANT [facility] Abnormal Pap or Heath Bx in last 5 years Yes 06/06/2023 4:27 PM [facility] Menstrual Status Irregular Periods 06/06/2023 4:27 PM [facility] Heath Bx Done Today No 06/06/2023 4:27 PM [facility] Additional Information None given 06/06/2023 4:27 PM [facility] Comment: Cytology is screened at [facility] - [address], [place] [address] and [facility] - [address], [place] [address] and [facility] - [address] [place] [address] Interpreted at [facility] - [address], [place] [address] Automated Review Successful 06/06/2023 4:27 PM INTELLECTUAL PROPERTY LEGAL ASSISTANT [facility] Comment:Specimen processed s uccessfully by automated woolen suiting shrinker device, ThinPrep Imaging System, [employer] ANCILLARY TESTING ACID BLOWER HPV Ordered, Please see separate report 06/06/2023 4:27 PM INTELLECTUAL PROPERTY LEGAL ASSISTANT [facility] Note The pap test is a screening technique, not a diagnostic procedure. It is used primarily to screen for squamous cancers and precursor lesions. Published studies have shown that it is subject to both false negative and false positive results. The pap test should not be used as the sole means to diagnose or exclude pre-malignant and malignant lesions. 06/06/2023 4:27 PM INTELLECTUAL PROPERTY LEGAL ASSISTANT [facility] Other (Cervical) Non-Blood / Unknown 05/29/2023 3:02 PM INTELLECTUAL PROPERTY LEGAL ASSISTANT 05/29/2023 3:37 PM INTELLECTUAL PROPERTY LEGAL ASSISTANT Abiola Masterson DO PATHOLOGY/CYTOLOGY [facility] [address] [place] [address], * ANTI HCV (12/27/2019 4:02 PM CDT) HEPATITIS C ANTIBODY Non-React vidal Non-React vidal 12/28/2019 3:55 PM CDT [facility] Comment:Antibodies to HCV no t detected; does not exclude the possibility of exposure to HCV. Blood BLOOD SPECIMEN / Unknown Butterfly / Unknown 12/27/2019 4:02 PM CDT 12/27/2019 4:06 PM CDT Yanet Alvarez MD SEND OUTS [facility] [address] [place] [address], * ANTI HIV 1/2 (12/27/2019 4:02 PM CDT) HIV-1/HIV-2 ANTIBODY Non-Reacti ve Non-Reacti ve 12/28/2019 3:52 [address] [facility] Comment:HIV-1 p24 and HIV-1/ HIV-2 Ab not detected. Blood BLOOD SPECIMEN / Unknown Butterfly / Unknown 12/27/2019 4:02 PM CDT 12/27/2019 4:06 PM CDT Yanet Alvarez MD SEND OUTS [facility] [address] [place] [address], from Last 3 Months or Most Recently [...] 8:21 PM 12/28/2011 11:54 PM Care Teams Maintenance Apprentice Relationship Specialty Start Date End Date Abiola Masterson DO [address] [place] [address] PCP - General Family Practice 04/14/23
--- NOTE | 2024-02-04 14:00 | CRLHL7_ITS ---
For Patients: As a result of the Century Cures Act, medical imaging exams and procedure reports are released immediately into your electronic medical record. You may view this report before your referring provider. If you have questions, please contact your health care provider. INDICATION: CHTN, morbid obesity COMPARISON: 01/28/2024 TECHNIQUE: Real time hoang scale imaging of the fetus was performed. Without non-stress testing. FINDINGS: Sonographic imaging demonstrates a single living intrauterine gestation. Fetus demonstrates a regular cardiac rate of 155 beats per minute. Fetus has a vertex position. The amniotic fluid volume appears normal and there is a single deepest pocket measurement of 4.2 cm. The fetus was active and demonstrated normal breathing movements. There was normal flexion and extension of the trunk and extremities. IMPRESSION: Normal biophysical profile score of 8 out of 8. Dictated by Francis Lyon MD @ 02/05/2024 11:46:37 AM (Electronically Signed)
== END 2024-02-04 13:45 | disposition home or self-care (01) ==
LOC: US 13:44
PROVIDERS: Visit Provider Obstetrics & Gynecology
DX: O10.919 Unspecified pre-existing hypertension complicating pregnancy, unspecified trimester (principal); O99.210 Obesity complicating pregnancy, unspecified trimester; E66.01 Morbid (severe) obesity due to excess calories
CPT/HCPCS: 76819; 82565; 84450; 84460

== ENCOUNTER 2024-02-11 13:53 | Outpatient (CLI) | payer OTHER, MEDICAID, SELFPAY | END 2024-02-11 13:54 | disposition home or self-care (01) | LOC: NFLDREF 02-15 14:54 | PROVIDERS: Visit Provider Obstetrics & Gynecology | DX: O10.913 Unspecified pre-existing hypertension complicating pregnancy, third trimester (principal); N89.8 Other specified noninflammatory disorders of vagina; Z3A.35 35 weeks gestation of pregnancy | CPT/HCPCS: 82565; 84450; 84460; 87081; 87653 ==

== ENCOUNTER 2024-02-11 13:55 | Outpatient (CLI) | payer OTHER, MEDICAID, SELFPAY ==
--- OUTSIDE RECORDS SUMMARY | 2024-02-11 13:58 | XMS_ITS | Continuity of Care Document ---
Author Name [facility] Organization [facility] Care Team Providers Care Specialty Transformer Assembler Name Role Phone [facility] Unavailable Unavailable Problems [...] DoD obesity Active Condition DoD visit for: [facility] physical medical evaluation board (MEB) [...] Diseases Inactive Condition DoD Anxiety Active Condition [facility] Attention deficit hyperactivity disorder, predominantly inattentive type Active Condition [facility] Cancer cervix screening status Active Condition Nov 21 Entered By: MAILE RAZA Comment: No hx BJ 2-3Aug 2021 Entered By: MAILE RAZA Comment: 12/07/20 Colposcopy neg/ECC negAug 2021 Entered By: MAILE RAZA Comment: 11/15/21 PAP NILM/HPV neg. Next co-test due in 3 years (10/2024). [facility] Fatigue Active Condition [facility] Major depressive disorder Active Condition [facility] Nasal congestion Active Condition [facility] ELENOMae [facility] White blood cell count abnormal Active Condition Nov 08, 2020 Entered By: MAILE RAZA Comment: chronic, peripheral smear done 10/2020 [facility] Diagnosis: ICD-10-CM O09.523 Supervision of elderly multigravida, third trimester Active Diagnosis [facility] Diagnosis: ICD-10-CM O09.522 Supervision of elderly multigravida, second trimester Active Diagnosis ARTURO MALAGON [facility] Diagnosis: ICD-10-CM O09.521 Supervision of elderly multigravida, first trimester Active Diagnosis [facility] Diagnosis: ICD-10-CM J34.2 Deviated nasal septum Active Diagnosis [facility] Diagnosis: ICD-10-CM E66.01 Morbid (severe) obesity due to excess calories Active Diagnosis [facility] Diagnosis: ICD-10-CM M54.50 Low back pain, unspecified Active Diagnosis [facility] Diagnosis: ICD-10-CM F90.0 Attn-defct hyperactivity disorder, predom inattentive type Active Diagnosis [facility] Diagnosis: ICD-10-CM F41.9 Anxiety disorder, unspecified Active Diagnosis [facility] Diagnosis: ICD-10-CM M25.552 Pain in left hip Active Diagnosis [facility] Diagnosis: ICD-10-CM R09.81 Nasal congestion Active Diagnosis [facility] Diagnosis: ICD-10-CM L70.8 Other acne Active Diagnosis [facility] Diagnosis: ICD-10-CM K58.2 Mixed irritable bowel syndrome Active Diagnosis [facility] Diagnosis: ICD-10-CM H52.03 Hypermetropia, bilateral Active Diagnosis [facility] Diagnosis: ICD-10-CM R53.82 Chronic fatigue, unspecified Active Diagnosis [facility] Diagnosis: ICD-10-CM Z13.89 Encounter for screening for other disorder Active Diagnosis [facility] Diagnosis: ICD-10-CM M79.671 Pain in right foot [facility] Medications Combined list of outpatient medications from Department of Defense and [facility] Affairs facilities.Medications provided include 1) outpatient [...] OR WHEEZING RESPIR ATORY (INHAL ATION) 11/07/2023 [id number] ALBERTO MCLAUGHLIN 2023 1 [facility] BISACODYL 5MG TAB,EC TAKE TWO TABLETS BY MOUTH ONCE FOR COLON PREP ORAL 12/13/2022 [id number] 3 GERRY HOLM 2022 2 [facility] CICLOPIROX 8% SOLN,TOP APPLY THIN FILM TOPICALL Y EVERY DAY FOR FUNGAL NAIL INFECTIO N -- USE UNTIL RESOLUTI ON OR 48 WEEKS TOPICA L 01/01/2024 [id number] 3 LEOPOLDO GUERRERO 2022 19.8 [facility] FLUCONAZOLE 150MG TAB TAKE ONE TABLET BY MOUTH ONCE FOR ONE DOSE ORAL DISCONT INUED 06/13/2023 [id number] 4 Bonny FELIPE 2023 1 [facility] IMIQUIMOD 5% CREAM,TOP,P KT,0.25GM APPLY 1 PACKET TOPICALL Y FRIDAY, Y AND FRIDAY AT BEDTIME LEAVE ON SKIN FOR 8 HOURS. DO NOT USE WHILE TOPICA L ACTIVE 10/30/2024 [id number] 4 FB-HRDLIC JAH SMITH Angy 2023 24 [facility] METRONIDAZO LE 500MG TAB TAKE ONE TABLET BY MOUTH TWICE A DAY FOR 7 DAYS ORAL DISCONT INUED 06/13/2023 [id number] 4 Bonny FELIPE 2023 14 [facility] MODAFINIL 200MG TAB TAKE ONE AND ONE-HALF TABLETS BY MOUTH EVERY MORNING FOR MOOD, ENERGY ORAL DISCONT INUED BY PROVIDE R 05/31/2023 [id number] 4 PICAYUNE,A BIGAIL E 2022 45 [facility] MODAFINIL 200MG TAB TAKE ONE TABLET BY MOUTH EVERY MORNING FOR MOOD, ENERGY FOR ENERGY, FOCUS, MOOD ORAL DISCONT INUED (EDIT) 05/16/2023 [id number] 3 PICAYUNE,A BIGAIL E 2022 30 [facility] MULTIVITAMI NS W/MINERALS, CAP/TAB TAKE 1 TABLET BY MOUTH EVERY DAY FOR SUPPLEME NT ORAL ACTIVE 08/07/2024 [id number] 4 BINA BAI 2023 100 [facility] MULTIVITAMI NS W/MINERALS, CAP/TAB TAKE 1 TABLET BY MOUTH EVERY DAY FOR SUPPLEME NT ORAL DISCONT INUED 07/20/2023 [id number] 3 BINA BAI 2022 100 [facility] NIFEDIPINE (EQV-CC) 30MG TAB,SA TAKE ONE TABLET BY MOUTH EVERY DAY FOR BLOOD PRESSURE ORAL ACTIVE 08/07/2024 [id number] 4 BINA BAI 2023 90 [facility] NIFEDIPINE (EQV-CC) 30MG TAB,SA TAKE ONE TABLET BY MOUTH EVERY DAY FOR BLOOD PRESSURE ORAL DISCONT INUED 07/20/2023 [id number] 4 BINA BAI R 2022 90 [facility] OMEPRAZOLE 20MG CAP,EC TAKE TWO CAPSULES BY MOUTH EVERY DAY BEFORE A MEAL ORAL DISCONT INUED 08/15/2023 [id number] 4 FB-IMANI BENNETT W 2023 60 [facility] PEG-3350/EL ECTROLYTES PWDR TAKE ONE AND ONE-HALF CONTAINE RS BY MOUTH DIRECTED FOR COLON PREP ORAL 12/13/2022 [id number] GERRY HOLM R 2022 2 [facility] VENLAFAXINE HCL 150MG 24HR CAP,SA TAKE ONE CAPSULE BY MOUTH EVERY DAY FOR ANXIETY, PAIN ORAL DISCONT INUED BY PROVIDE R 01/17/2024 [id number] 4 PICAYUNE,A BIGAIL E 2022 90 [facility] VENLAFAXINE HCL 37.5MG 24HR CAP,SA TAKE ONE CAPSULE BY MOUTH EVERY DAY WITH A MEAL ORAL DISCONT INUED BY PROVIDE R 07/05/2023 [id number] 4 ABDOLUAYE ROOT 2023 14 [facility] VENLAFAXINE HCL 75MG 24HR CAP,SA TAKE ONE CAPSULE BY MOUTH EVERY DAY WITH MEAL FOR 14 DAYS ORAL DISCONT INUED BY PROVIDE R 07/05/2023 [id number] ABDOULAYE ROOT 2023 14 [facility] VENLAFAXINE HCL 75MG 24HR CAP,SA TAKE ONE CAPSULE BY MOUTH EVERY DAY FOR ANXIETY, PAIN ORAL DISCONT INUED (EDIT) 11/29/2023 [id number] 3 PICAYUNE,A BIGAIL E 2022 90 [facility] Allergies, Adverse Reactions, Alerts Combined list [...] Site Reaction Lot Number CVX Code Drug Supervisor [place] Department Status Comments Source TD (ADULT), 2 LF TETANUS TOXOID, PRESERVATIVE FREE, ADSORBED 2018 09 complet ed sanofi, [id number], EX 12/22/19 [facility] INFLUENZA, SEASONAL, INJECTABLE 2012 141 complet ed [facility] HPV, QUADRIVALENT 2 2011 62 complet ed [facility] INFLUENZA, SEASONAL, INJECTABLE 2011 141 complet ed [facility] TDAP 2011 115 complet ed [facility] INFLUENZA, SEASONAL, INJECTABLE 2011 141 complet ed [facility] HPV, QUADRIVALENT 1 2010 62 complet ed [facility] Novel influenza-H1N 1-09, injectable 1 2008 [id number] 127 [employer]. (NOV) complet ed Novel influenza -P3W8-87, injectabl e [facility] anthrax vaccine 2 2008 [id number] [employer] Yuan (MIP) complet ed anthrax vaccine DoD anthrax vaccine 1 2008 [id number] [employer] Franklin (MIP) complet ed anthrax vaccine DoD vaccinia (smallpox) vaccine 1 2008 UNK 75 Unknown (UNK) Not Given vaccinia (smallpox ) vaccine DoD typhoid Vi capsular polysaccharid e vaccine 1 2008 [id number] Unknown (UNK) comple t ed typhoid Vi capsular polysacch aride vaccine [facility] human papilloma virus vaccine, quadrivalent 1 2008 FLORI, IBETH P [id number] Merck (MSD) complet ed human papilloma virus vaccine, quadrival ent DoD influenza virus vaccine, live, attenuated, for intranasal use 1 2007 [id number] Other (OTH) complet ed influenza virus vaccine, live, attenuate d, for intranasa l use [facility] hepatitis A vaccine, adult dosage 2 2007 [id number] 52 Unknown (UNK) complet ed hepatitis A vaccine, adult dosage DoD measles, mumps and rubella virus vaccine 1 2007 UNK 03 Unknown (UNK) Not Given measles, mumps and rubella virus vaccine DoD poliovirus vaccine, inactivated 1 2007 [id number] Sanofi Pasteur (PMC) complet ed polioviru s vaccine, inactivat ed DoD varicella virus vaccine 1 2007 UNK 21 Unknown (UNK) Not Given varicella virus vaccine DoD hepatitis B vaccine, adult dosage 1 2007 UNK 43 Unknown (UNK) Not Given hepatitis B vaccine, adult dosage DoD hepatitis A vaccine, adult dosage 1 2007 [id number] 52 [employer] (SKB) complet ed hepatitis A vaccine, adult dosage DoD influenza virus vaccine, live, attenuated, for intranasal use 1 2007 [id number] 111 [employer]. (MED) complet ed influenza virus vaccine, live, attenuate d, for intranasa l use DoD meningococcal polysaccharid e (groups A, C, Y and W-135) diphtheria toxoid conjugate vaccine (MCV4P) 1 2007 [id number] Sanofi Pasteur (PMC) complet ed meningoco ccal polysacch aride (groups A, C, Y and W-135) diphtheri a toxoid conjugate vaccine (MCV4P) DoD tetanus toxoid, reduced diphtheria toxoid, and acellular pertu is vaccine, adsorbed 1 2007 [id number] 115 Sanofi Pasteur (PMC) complet ed tetanus toxoid, reduced diphtheri a toxoid, and acellular pertussis vaccine, adsorbed DoD TDAP 2007 115 complet ed [place] [facility] Results Combined list of recent chemistry, [...] 31, 2022 01:23 PM Reporting Lab: [facility] [address] Performing Lab: [facility] [address] [facility] C.TRACHO MATIS/N. GONORRHE A DNA NEISSERIA GONORRHOEA E DNA [PRESENCE] IN URINE BY MAL WITH PROBE DETECTION NOT DETECTED 12/31 Specimen Type: URINE No comment entered. Ordering Provider: Angy GUERRERO Report Released Date/Time: Dec 31, 2022 01:23 PM Reporting Lab: [facility] [address] Performing Lab: [place] [phone] [facility] C.TRACHO MATIS/N. GONORRHE A DNA INTERPRETA TION AND REVIEW OF LABORATORY RESULTS Infectio us agent DNA is not detected by this assay 12/31 Specimen Type: URINE No comment entered. Ordering Provider: Angy GUERRERO Report Released Date/Time: Dec 31, 2022 01:23 PM Reporting Lab: [facility] [address] Performing Lab: [place] [address] [facility] IS [facility] HCG, QUAL CHORIOGONA DOTROPIN.B ETA SUBUNIT ( TEST) [PRESENCE] IN URINE NEGATIVE 12/31 Specimen Type: URINE No comment entered. Ordering Provider: Angy GUERRERO Report Released Date/Time: Dec 31, 2022 01:23 PM Reporting Lab: [facility] [address] Performing Lab: [facility] [address] [facility] IS [facility] C-REACTI VE PROTEIN [...] 19, 2022 09:34 AM Reporting Lab: [facility] [address] Performing Lab: [facility] [address] [facility] CBC & DIFF LEUKOCYTES [#/VOLUME] IN BLOOD BY AUTOMATED COUNT 13.98 10*3/uL 4.0 - 11.0 12/31 H Specimen Type: BLOOD Comment: Manual Differentia l Performed Ordering Provider: JAKUB RAZA Report Released Date/Time: Jul 18, 2022 03:26 PM Reporting Lab: [facility] [address] Performing Lab: [facility] [address] [place] [facility] CBC & DIFF ERYTHROCYT ES [#/VOLUME] IN BLOOD BY AUTOMATED COUNT 4.29 10*6/uL 4.0 - 5.4 12/31 Specimen Type: BLOOD Comment: Manual Differentia l Performed Ordering Provider: JAKUB RAZA Report Released Date/Time: Jul 18, 2022 03:26 PM Reporting Lab: [facility] [address] Performing Lab: [facility] [address] [place] [facility] CBC & DIFF HEMOGLOBIN [MASS/VOLU ME] IN BLOOD 14.0 g/dL 11.5 - 16 12/31 Specimen Type: BLOOD Comment: Manual Differentia l Performed Ordering Provider: JAKUB RAZA Report Released Date/Time: Jul 18, 2022 03:26 PM Reporting Lab: [facility] [address] Performing Lab: [facility] [address] [place] [facility] CBC & DIFF HEMATOCRIT [VOLUME FRACTION] OF BLOOD BY AUTOMATED COUNT 40.2 34.5 - 48 12/31 Specimen Type: BLOOD Comment: Manual Differentia l Performed Ordering Provider: JAKUB RAZA Report Released Date/Time: Jul 18, 2022 03:26 PM Reporting Lab: [facility] [address] Performing Lab: [facility] [address] [place] [facility] CBC & DIFF MCV [ENTITIC VOLUME] BY AUTOMATED COUNT 93.7 fL 80 - 100 12/31 Specimen Type: BLOOD Comment: Manual Differentia l Performed Ordering Provider: JAKUB RAZA Report Released Date/Time: Jul 18, 2022 03:26 PM Reporting Lab: [facility] [address] Performing Lab: [facility] [address] [place] [facility] CBC & DIFF MCH [ENTITIC MASS] BY AUTOMATED COUNT 32.6 pg 27 - 33 12/31 Specimen Type: BLOOD Comment: Manual Differentia l Performed Ordering Provider: JAKUB RAZA Report Released Date/Time: Jul 18, 2022 03:26 PM Reporting Lab: [facility] [address] Performing Lab: [facility] [address] [place] [facility] CBC & DIFF MCHC [MASS/VOLU ME] BY AUTOMATED COUNT 34.8 g/dL 32.0 - 37.5 12/31 Specimen Type: BLOOD Comment: Manual Differentia l Performed Ordering Provider: JAKUB RAZA Report Released Date/Time: Jul 18, 2022 03:26 PM Reporting Lab: [facility] [address] Performing Lab: [facility] [address] [place] [facility] CBC & DIFF PLATELETS [#/VOLUME] IN BLOOD BY AUTOMATED COUNT 361 10*3/uL 150 - 400 12/31 Specimen Type: BLOOD Comment: Manual Differentia l Performed Ordering Provider: JAKUB RAZA Report Released Date/Time: Jul 18, 2022 03:26 PM Reporting Lab: [facility] [address] Performing Lab: [facility] [address] [place] [facility] CBC & DIFF PLATELET MEAN VOLUME [ENTITIC VOLUME] IN BLOOD BY AUTOMATED COUNT 8.8 fL 7.4 - 10.4 12/31 Specimen Type: BLOOD Comment: Manual Differentia l Performed Ordering Provider: JAKUB RAZA Report Released Date/Time: Jul 18, 2022 03:26 PM Reporting Lab: [facility] [address] Performing Lab: [facility] [address] [place] [facility] CBC & DIFF NEUTROPHIL S/100 LEUKOCYTES IN BLOOD BY MANUAL COUNT 59.9 12/31 Specimen Type: BLOOD Comment: Manual Differentia l Performed Ordering Provider: JAKUB RAZA Report Released Date/Time: Jul 18, 2022 03:26 PM Reporting Lab: [facility] [address] Performing Lab: [facility] [address] [place] [facility] CBC & DIFF LYMPHOCYTE S/100 LEUKOCYTES IN BLOOD BY MANUAL COUNT 31.5 12/31 Specimen Type: BLOOD Comment: Manual Differentia l Performed Ordering Provider: JAKUB RAZA Report Released Date/Time: Jul 18, 2022 03:26 PM Reporting Lab: [facility] [address] Performing Lab: [facility] [address] [place] [facility] CBC & DIFF ERYTHROCYT E DISTRIBUTI ON WIDTH [RATIO] BY AUTOMATED COUNT 12.5 11.5 - 14.5 12/31 Specimen Type: BLOOD Comment: Manual Differentia l Performed Ordering Provider: JAKUB RAZA Report Released Date/Time: Jul 18, 2022 03:26 PM Reporting Lab: [facility] [address] Performing Lab: [facility] [address] [place] [facility] CBC & DIFF MONOCYTES/ 100 LEUKOCYTES IN BLOOD BY AUTOMATED COUNT 4.1 12/31 Specimen Type: BLOOD Comment: Manual Differentia l Performed Ordering Provider: JAKUB RAZA Report Released Date/Time: Jul 18, 2022 03:26 PM Reporting Lab: [facility] [address] Performing Lab: [facility] [address] [place] [facility] CBC & DIFF EOSINOPHIL S/100 LEUKOCYTES IN BLOOD BY AUTOMATED COUNT 3.0 12/31 Specimen Type: BLOOD Comment: Manual Differentia l Performed Ordering Provider: JAKUB RAZA Report Released Date/Time: Jul 18, 2022 03:26 PM Reporting Lab: [facility] [address] Performing Lab: [facility] [address] [place] [facility] CBC & DIFF BASOPHILS/ 100 LEUKOCYTES IN BLOOD BY MANUAL COUNT 1.0 12/31 Specimen Type: BLOOD Comment: Manual Differentia l Performed Ordering Provider: JAKUB RAZA Report Released Date/Time: Jul 18, 2022 03:26 PM Reporting Lab: [facility] [address] Performing Lab: [facility] [address] [place] [facility] CBC & DIFF MYELOCYTES /100 LEUKOCYTES IN BLOOD BY MANUAL COUNT 0.5 12/31 Specimen Type: BLOOD Comment: Manual Differentia l Performed Ordering Provider: JAKUB RAZA Report Released Date/Time: Jul 18, 2022 03:26 PM Reporting Lab: [facility] [address] Performing Lab: [facility] [address] [place] [facility] CBC & DIFF LYMPHOCYTE S [#/VOLUME] IN BLOOD BY AUTOMATED COUNT 4.40 10*3/uL 1.0 - 4.0 12/31 H Specimen Type: BLOOD Comment: Manual Differentia l Performed Ordering Provider: JAKUB RAZA Report Released Date/Time: Jul 18, 2022 03:26 PM Reporting Lab: [facility] [address] Performing Lab: [facility] [address] [place] [facility] CBC & DIFF MONOCYTES [#/VOLUME] IN BLOOD BY AUTOMATED COUNT 0.57 10*3/uL 0.1 - 1.0 12/31 Specimen Type: BLOOD Comment: Manual Differentia l Performed Ordering Provider: JAKUB RAZA Report Released Date/Time: Jul 18, 2022 03:26 PM Reporting Lab: [facility] [address] Performing Lab: [facility] [address] [place] [facility] CBC & DIFF NEUTROPHIL S [#/VOLUME] IN BLOOD BY AUTOMATED COUNT 8.37 10*3/uL 2.0 - 7.7 12/31 H Specimen Type: BLOOD Comment: Manual Differentia l Performed Ordering Provider: JAKUB RAZA Report Released Date/Time: Jul 18, 2022 03:26 PM Reporting Lab: [facility] [address] Performing Lab: [facility] [address] [place] [facility] CBC & DIFF EOSINOPHIL S [#/VOLUME] IN BLOOD BY AUTOMATED COUNT 0.42 10*3/uL 0 - 0.5 12/31 Specimen Type: BLOOD Comment: Manual Differentia l Performed Ordering Provider: LUZ MARINA,SOP HIA A Report Released Date/Time: Jul 18, 2022 03:26 PM Reporting Lab: [facility] [address] Performing Lab: [facility] [address] [facility] CBC & DIFF BASOPHILS [#/VOLUME] IN BLOOD BY AUTOMATED COUNT 0.14 10*3/uL 0 - 0.2 12/31 Specimen Type: BLOOD Comment: Manual Differentia l Performed Ordering Provider: JAKUB RAZA Report Released Date/Time: Jul 18, 2022 03:26 PM Reporting Lab: [facility] [address] Performing Lab: [facility] [address] [facility] CBC & DIFF MYELOCYTES [#/VOLUME] IN BLOOD BY MANUAL COUNT 0.07 10*3/uL 12/31 Specimen Type: BLOOD Comment: Manual Differentia l Performed Ordering Provider: JAKUB RAZA Report Released Date/Time: Jul 18, 2022 03:26 PM Reporting Lab: [facility] [address] Performing Lab: [facility] [address] [facility] CBC & DIFF ERYTHROCYT E MORPHOLOGY FINDING [IDENTIFIE R] IN BLOOD NORMOCYT IC, NORMOCHR OMIC 12/31 Specimen Type: BLOOD Comment: Manual Differentia l Performed Ordering Provider: JAKUB RAZA Report Released Date/Time: Jul 18, 2022 03:26 PM Reporting Lab: [facility] [address] Performing Lab: [facility] [address] [facility] COMPREHE NSIVE METABOLI [...] 19, 2022 09:34 AM Reporting Lab: [facility] [address] Performing Lab: [facility] [address] [place] [facility] COMPREHE NSIVE METABOLI C PANEL+MG UREA [...] 19, 2022 09:34 AM Reporting Lab: [facility] [address] Performing Lab: [facility] [address] [facility] COMPREHE NSIVE METABOLI C PANEL+MG GLUCOSE [MASS/VOLU [...] 19, 2022 09:34 AM Reporting Lab: [facility] [address] Performing Lab: [facility] [address] [facility] COMPREHE NSIVE METABOLI C PANEL+MG SODIUM [MOLES/VOL [...] 19, 2022 09:34 AM Reporting Lab: [facility] [address] Performing Lab: [facility] [address] [place] [facility] COMPREHE NSIVE METABOLI C PANEL+MG POTASSIUM [...] 19, 2022 09:34 AM Reporting Lab: [facility] [address] Performing Lab: [place] [phone] [facility] IS [facility] COMPREHE NSIVE METABOLI C PANEL+MG CHLORIDE [...] Jul 19, 2022 09:34 AM Reporting Lab: [place] [phone] Performing Lab: [facility] [address] [facility] COMPREHE NSIVE METABOLI C PANEL+MG CARBON [...] 19, 2022 09:34 AM Reporting Lab: [facility] [address] Performing Lab: [facility] [address] [place] [facility] COMPREHE NSIVE [...] 19, 2022 09:34 AM Reporting Lab: [facility] [address] Performing Lab: [place] [phone] [facility] COMPREHE NSIVE METABOLI [...] 19, 2022 09:34 AM Reporting Lab: [facility] [address] Performing Lab: [facility] [address] [facility] COMPREHE NSIVE METABOLI C PANEL+MG ALBUMIN [MASS/VOLU [...] 19, 2022 09:34 AM Reporting Lab: [facility] [address] Performing Lab: [facility] [address] [facility] COMPREHE NSIVE METABOLI C PANEL+MG BILIRUBIN. TOTAL [...] 19, 2022 09:34 AM Reporting Lab: [facility] [address] Performing Lab: [place] [phone] [place] COMPREHE NSIVE METABOLI C PANEL+MG [...] 19, 2022 09:34 AM Reporting Lab: [facility] [address] Performing Lab: [facility] [address] [facility] COMPREHE NSIVE METABOLI C PANEL+MG ANION GAP [...] 19, 2022 09:34 AM Reporting Lab: [facility] [address] Performing Lab: [facility] [address] [facility] COMPREHE NSIVE METABOLI C PANEL+MG ALKALINE PHOSPHATAS [...] 19, 2022 09:34 AM Reporting Lab: [facility] [address] Performing Lab: [facility] [address] [place] COMPREHE NSIVE METABOLI C PANEL+MG [...] 19, 2022 09:34 AM Reporting Lab: [facility] [address] Performing Lab: [facility] [address] [facility] COMPREHE NSIVE METABOLI C PANEL+MG ASPARTATE AMINOTRANS [...] 19, 2022 09:34 AM Reporting Lab: [facility] [address] Performing Lab: [facility] [address] [facility] COMPREHE NSIVE METABOLI C PANEL+MG GLOMERULAR [...] 19, 2022 09:34 AM Reporting Lab: [facility] [address] Performing Lab: [facility] [address] [facility] LIPID PANEL,NO N-FASTIN G CHOLESTERO L [MASS/VOLU [...] Jul 19, 2022 09:34 AM Reporting Lab: [address] Performing Lab: [address] [place] [facility] LIPID PANEL,NO [...] Jul 19, 2022 09:34 AM Reporting Lab: [place] [address] Performing Lab: [place] [address] [facility] LIPID PANEL,NO N-FASTIN G CHOLESTERO [...] 19, 2022 09:34 AM Reporting Lab: [facility] [address] Performing Lab: [place] [address] [place] [facility] LIPID PANEL,NO N-FASTIN G CHOLESTERO [...] 19, 2022 09:34 AM Reporting Lab: [facility] [address] Performing Lab: [facility] [address] [place] [facility] LIPID PANEL,NO [...] 19, 2022 09:34 AM Reporting Lab: [facility] [address] Performing Lab: [facility] [address] [place] [facility] LIPID PANEL,NO N-FASTIN [...] 19, 2022 09:34 AM Reporting Lab: [facility] [address] Performing Lab: [facility] [address] [facility] ANTI-HEP C(EIA) HEPATITIS C VIRUS AB [PRESENCE] IN SERUM NEGATIVE 12/31 Specimen Type: SERUM No comment entered. Ordering Provider: Angy GUERRERO Report Released Date/Time: Dec 31, 2022 01:23 PM Reporting Lab: [facility] [address] Performing Lab: [facility] [address] [facility] HIV AG/AB SCREEN HIV 1+2 AB+HIV1 P24 AG [PRESENCE] IN SERUM OR PLASMA BY IMMUNOASSA Y NEGATIVE 12/31 Specimen Type: SERUM No comment entered. Ordering Provider: Angy GUERRERO Report Released Date/Time: Dec 31, 2022 01:23 PM Reporting Lab: [facility] [address] Performing Lab: [facility] [address] [place] [facility] SYPHILIS ANTIBODY SYPHILIS SCREEN TEST STATUS CP NEGATIVE 12/31 Specimen Type: SERUM No comment entered. Ordering Provider: Angy GUERRERO Report Released Date/Time: Dec 31, 2022 01:23 PM Reporting Lab: [facility] [address] Performing Lab: [facility] [address] [facility] PROLACTI N PROLACTIN [MASS/VOLU ME] IN SERUM OR PLASMA BY IMMUNOASSA Y 2.51 ng/mL <26.53 - 26.53 10/29 Specimen Type: PLASMA No comment entered. Ordering Provider: Angy GUERRERO Report Released Date/Time: Oct 25, 2022 04:35 PM Reporting Lab: [facility] [address] Performing Lab: [facility] [address] [facility] Vital Signs Combined list of [...] [employer](IEP Hearing Conservat ion) OUTPATIENT [id number] FERMINLESLY Cristóbal 04/09 Released w/o Limitations [employer](I EP Hearing Conserv ation) [employer](RE C Post Immunizat ion) OUTPATIENT [id number] IET PPD JOANNE TABARES 04/10 Released w/o Limitations [employer](M AHC Post Immuniz ation) [employer](RE C Post Immunizat ion) OUTPATIENT [id number] IET IMMUNIZ ATIONS LISSETT VERMA Nata 04/13 Released w/o Limitations [employer](M AHC Post Immuniz ation) [employer](C Ambulator y) OUTPATIENT [id number] rtd MARCY ESPINOZA 06/05 Released with Work/Duty Limitations [employer](T MC Ambulat ory) [employer](TMC Ambulator y) OUTPATIENT [id number] SAM MCKEON 06/14 Released with Work/Duty Limitations [employer](T MC Ambulat ory) PEREZ Berrios([facility]) OUTPATIENT [id number] SELF CARE CLASS [place]ART 06/30 Released w/o Limitations PEREZ Overton([facility]) PEREZ Berrios([facility]) OUTPATIENT [id number] right knee pain for 5 days DEJA GARCIA 07/12 Released with Work/Duty Limitations [facility]ami [facility]ic [facility] Combine d) PEREZ Berrios([facility]) OUTPATIENT [id number] l HIP BACK PAIN BRETT RIVAS Leola 07/23 Released with Work/Duty Limitations [facility] [facility](Fami ly Practic e Combine d) PEREZ Berrios([facility]) OUTPATIENT [id number] L hip pain JIHANBANDAR TREVIÑO Henrik 08/12 Released with Work/Duty Limitations [facility](Fami ly Practic e Combine d) PEREZ Berrios([facility]) OUTPATIENT [id number] broken nose DEJA GARCIA 08/16 Released with Work/Duty Limitations [facility](Fami ly Practic e Combine d) [facility](Hear ing Conservat ion SRP) OUTPATIENT [id number] in-proc essing/ pcs AIME MEADE Sherine 09/20 Released w/o Limitations [facility](He aring Conserv ation SRP) [facility]) OUTPATIENT [id number] Inproce ROM Corcoran 09/21 Released w/o Limitations [facility]) [facility]) OUTPATIENT [id number] sorGERALD [address] 10/13 Released with Work/Duty Limitations [facility]) [facility](Immi gration Phys Exam) OUTPATIENT [id number] possibl e sinus infecti on [facility] 11/03 Released w/o Limitations [facility](Im migrati on Phys Exam) [facility](Immi gration Phys Exam) OUTPATIENT [id number] back pain/wr ist pain possibl e referra l [facility] 11/16 Released with Work/Duty Limitations [facility](Im migrati on Phys Exam) [facility](Occu pational Therapy) OUTPATIENT [id number] joint pain, localiz ed in the wrist CLARY NDIAYE 12/07 Released w/o Limitations [facility](Oc cupatio nal Therapy ) [facility](Immi gration Phys Exam) OUTPATIENT [id number] crack on left foot [facility] 12/24 Released w/o Limitations [facility](Im migrati on Phys Exam) [facility](Immi gration Phys Exam) OUTPATIENT [id number] asthma evaluat ion GERALD FLORES 03/16 Released w/o Limitations [facility](Im migrati on Phys Exam) [facility](Immi gration Phys Exam) OUTPATIENT [id number] back pain GERALD FLORES 06/01 Released with Work/Duty Limitations [facility](Im migrati on Phys Exam) [facility](Immi gration Phys Exam) OUTPATIENT [id number] follow up GERALD FLORES 06/28 Released with Work/Duty Limitations [facility](Im migrati on Phys Exam) [facility](Phys ical Therapy Tran) OUTPATIENT [id number] VICTOR HUGO RODRIGUEZ 06/29 Released with Work/Duty Limitations [facility](Ph ysical Therapy Tran ) [facility](Phys ical Therapy Tran) OUTPATIENT [id number] MARTINSJEMMA PINA III 07/06 Released w/o Limitations [facility](Ph ysical Therapy Tran ) [facility](Immi gration Phys Exam) OUTPATIENT [id number] pap CANDACE CORDOVA 07/12 Released w/o Limitations [facility](Im migrati on Phys Exam) [facility](Phys ical Therapy Tran) OUTPATIENT [id number] MARTINSJEMMA PINA [facility] 07/13 Released w/o Limitations [facility](Ph ysical Therapy Tran ) [facility](Phys ical Therapy Tran) OUTPATIENT [id number] MARTINSJEMMA PINA [facility] 07/15 Released w/o Limitations [facility](Ph ysical Therapy Tran ) [facility](Immi gration Phys Exam) TELE CONSULT [id number] lab result CANDACE CORDOVA 07/15 [facility](Im migrati on Phys Exam) [facility](Epid emiology) TELE CONSULT [id number] CT (+) JAMEL DE LA O 07/19 [facility](Ep idemiol ogy) [facility](Epid emiology) OUTPATIENT [id number] ACUTE/P T JAMEL DE LA O 07/25 Released w/o Limitations [facility](Ep idemiol ogy) [facility](Immi gration Phys Exam) OUTPATIENT [id number] lower back/po ssible ortho referra GERALD [place] 08/10 Released with Work/Duty Limitations [facility](Im migrati on Phys Exam) [facility](Phys ical Medicine [place]) OUTPATIENT [id number] 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 DEMETRIUS LAWTON 09/02 Released w/o Limitations [facility](Ph ysical Medicin e [place]) [facility](Immi gration Phys Exam) OUTPATIENT [id number] F/U MRI SANDRAJENNIFERGERALD W 09/20 Released with Work/Duty Limitations [facility](Im migrati on Phys Exam) [facility](Immi gration Phys Exam) OUTPATIENT [id number] back pain CHAVO, MARIAM Lees 10/31 Released w/o Limitations [facility](Im migrati on Phys Exam) [facility](Orth opedics Spine) OUTPATIENT [id number] 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, first spine per referra MIGNON Saleh 11/15 Released with Work/Duty Limitations [facility](Or thopedi cs Spine) [facility](Eduardo ology/Hea ring Conservat ion) OUTPATIENT [id number] Periodi STEVAN Durán 11/18 Released w/o Limitations [facility](Au diology /Hearin g Conserv ation) [facility](Phys ical Therapy) OUTPATIENT [id number] MEB ROM for L/S Spine RK, MAYA BROWN 11/21 Released w/o Limitations [facility](Ph ysical Therapy ) [facility](Opto metry [facility]) OUTPATIENT [id number] med physicRASHAD Kurtz 11/21 Released w/o Limitations [facility](Op tometry [facility]) [facility](Immi gration Phys Exam) OUTPATIENT [id number] phase II pe (meb) ADRIÁN KHAN 11/25 Released w/o Limitations [facility](Im migrati on Phys Exam) [facility](Immi gration Phys Exam) OUTPATIENT [id number] deviate d nasal septum CANDACE CORDOVA 12/16 Released w/o Limitations [facility](Im migrati on Phys Exam) [facility](Immi gration Phys Exam) OUTPATIENT [id number] knee pain (deplet ed reflexe s) BANDAR FREED 01/19 Released w/o Limitations [facility](Im migrati on Phys Exam) [facility](Immi gration Phys Exam) OUTPATIENT [id number] referra l for sleep study EKYONSHANNAN BAE Nata 01/20 Released w/o Limitations [facility] [place](Im migrati on Phys Exam) [facility] LUKAS Diaz(Ground Water Contractor al Medicine) TELE CONSULT [id number] Per TDRL require mentSONIA Bui 03/15 [facility] LUK[facility] Diaz(Inte rnal Medicin e) [facility] LUKAS Diaz(AMH M01D Cats) OUTPATIENT [id number] TDRL SONIA SAEZ 04/10 Released w/o Limitations [facility] LUKAS Diaz(AMH M01D Cats) [facility] LUKAS Diza(P T Clinic) OUTPATIENT [id number] ROM FOR TDRL JOSE RAUL SALAZAR ROMLAITH LEON 04/10 Released w/o Limitations [facility] LUKAS Diaz(P T Clinic) [facility] SELF CARE MNGMENT TRAINING [id number] Diagnos is: ICD-10- CM M79.671 Pain in right foot
SANTANA STEELE 08/07 [facility] Outpatient Encounter [id number] 08/08 [facility] HC PRO PHONE CALL 5-10 MIN [id number] Diagnos is: ICD-10- CM Z13.89 Encount er for screeni ng for other disorde r
MAIN,RENO NNE K 08/20 [facility] Outpatient Encounter [id number] 08/20 [place] [facility] OFFICE O/P EST HI 40-54 MIN [id number] Diagnos is: ICD-10- CM R53.82 Chronic fatigue , unspeci fied
LEOPOLDO GUERRERO L 09/03 [place] [facility] Out[facility] Encounter [id number] 09/04 [place] [facility] NEUROMUSCU LAR REEDUCATIO N [id number] Diagnos is: ICD-10- CM M25.552 Pain in left hip<br/ > SANTANA STEELE L 09/04 [facility] OFF[facility] O/P NEW LOW 30-44 MIN [id number] Diagnos is: ICD-10- CM H52.03 Hyperme tropia, bilater al
YUAN DAVIS M 09/18 [facility] Outpatient Encounter [id number] 09/27 [facility] OFFICE O/P NEW MOD 45-59 MIN [id number] [id number] Diagnos is: ICD-10- CM K58.2 Mixed irritab le bowel syndrom e
Sherine HOLM ISAAC R 09/27 [facility] Outpatient Encounter [id number] 10/08 [facility] PSYCH DIAG EVAL W/MED SRVCS [id number] Diagnos is: ICD-10- CM F41.9 Anxiety disorde r, unspeci fied
PICAYUNE,AB IGAIL E 10/09 [place] [facility] [place] [facility] Outpatient Encounter [id number] 10/14 [place] [facility] [place] [facility] Outpatient Encounter [id number] 10/15 [place] [facility] [place] [facility] SELF CARE MNGMENT TRAINING [id number] Diagnos is: ICD-10- CM M25.552 Pain in left hip<br/ > SANTANA STEELE L 10/16 [facility] [place] [facility] OFFICE O/P EST MOD 30-39 MIN [id number] Diagnos is: ICD-10- CM R09.81 Nasal congest ion<br/ > ALBERTO ESTRADAMae 10/16 [facility] [place] [facility] Outpatient Encounter [id number] 10/16 [facility] [place] [facility] OFFICE O/P EST LOW 20-29 MIN [id number] Diagnos is: ICD-10- CM L70.8 Other acne
LEOPOLDO GUERRERO L 10/25 [facility] [place] [facility] Outpatient Encounter [id number] 10/28 [facility] [place] [facility] Outpatient Encounter [id number] 11/13 [place] [facility] [place] [facility] Outpatient Encounter [id number] 11/18 [facility] [place] [facility] MANUAL THERAPY 1/> [facility] [id number] Diagnos is: ICD-10- CM M25.552 Pain in left hip<br/ > SANTANA STEELE L 11/20 [facility] [place] [facility] OFFICE O/P EST HI 40-54 MIN [id number] Diagnos is: ICD-10- CM F41.9 Anxiety disorde r, unspeci fied
PICAYUNE,AB IGAIL E 11/28 [place] [facility] [place] [facility] Outpatient Encounter [id number] SHAHANA NGUYEN 12/09 [place] [facility] [place] [facility] Outpatient Encounter [id number] 12/11 [place] [facility] [place] [facility] OFFICE O/P EST LOW 20-29 MIN [id number] Diagnos is: ICD-10- CM R09.81 Nasal congest ion<br/ > JESSE BRUCE 12/13 [place] [facility] [place] [facility] Outpatient Encounter [id number] 12/17 [facility] [place] [facility] MANUAL THERAPY 1/> [facility] [id number] Diagnos is: ICD-10- CM M25.552 Pain in left hip<br/ > SANTAAN STEELE 12/24 [facility] [place] [facility] Outpatient Encounter [id number] 12/26 [facility] [place] [facility] Outpatient Encounter [id number] 12/26 [facility] [place] [facility] OFFICE O/P EST MOD 30-39 MIN [id number] [id number] Diagnos is: ICD-10- CM E66.01 Morbid (severe ) obesity due to excess calorie s
LEOPOLDO GUERRERO 12/31 [place] [facility] [place] [facility] Outpatient Encounter [id number] 01/01 [place] [facility] [place] [facility] Outpatient Encounter [id number] 01/16 [facility] [place] [facility] OFFICE O/P EST HI 40-54 MIN [id number] Diagnos is: ICD-10- CM F41.9 Anxiety disorde r, unspeci fied
PICAYUNE,AB IGAIL E 01/16 [place] [facility] [place] [facility] Outpatient Encounter [id number] 01/30 [place] [facility] [place] [facility] Outpatient Encounter [id number] 02/04 [place] [facility]/P EST LOW 20-29 MIN [id number] [id number] Diagnos is: ICD-10- CM F90.0 Attn-de fct hyperac tivity disorde r, predom inatten tive type
RICK DEL ROSARIO A 02/12 [facility] [place] [facility] Outpatient Encounter [id number] 03/19 [place] [facility] [place] [facility] Outpatient Encounter [id number] 03/20 [place] [facility] [place] [facility] Outpatient Encounter [id number] 04/03 [facility] [place] [facility] Outpatient Encounter [id number] 04/04 [facility] [place] [facility] Outpatient Encounter [id number] SA SAI BRITT R 04/07 [place] [facility] [place] [facility] Outpatient Encounter [id number] 04/08 [place] [facility] [place] [facility] Outpatient Encounter [id number] AMBER GANNON A 04/08 [facility] [place] [facility] Outpatient Encounter [id number] 04/22 [place] [facility] [place] [facility] Outpatient Encounter [id number] 04/23 [place] [facility] [place] [facility] Outpatient Encounter [id number] 04/30 [place] [facility] [place] [facility] Outpatient Encounter [id number] 05/07 [place] [facility] [place] [facility] Outpatient Encounter [id number] 05/28 [place] [facility] [place] [facility] Outpatient Encounter [id number] 05/29 [place] [facility] [place] [facility] OFF/OP CNSLTJ NEW/EST MOD 40 [id number] Diagnos is: ICD-10- CM M54.50 Low back pain, unspeci fied
AUSTIN ISABEL 06/02 [facility] [place] [facility] QNHP OL DIG ASSMT&MGMT 11-20 [id number] Diagnos is: ICD-10- CM E66.01 Morbid (severe ) obesity due to excess calorie s
MARIA LUZ GATES 06/03 [place] [facility] [place] [facility] Outpatient Encounter [id number] GOGO TAVERAS 06/04 [place] [facility] [place] [facility] Outpatient Encounter [id number] 06/09 [place] [facility] [place] [facility] Outpatient Encounter [id number] 06/10 [place] [facility] [place] [facility] Outpatient Encounter [id number] 06/23 [place] [facility] [place] [facility] OFFICE O/P EST MOD 30 MIN [id number] Diagnos is: ICD-10- CM J34.2 Deviate d nasal septum< br/> HAMLAR,VAL ID 06/25 [place] [facility] [place] [facility] Outpatient Encounter [id number] 06/29 [place] [facility] [place] [facility] Outpatient Encounter [id number] 07/17 [place] [facility] [place] [facility] Outpatient Encounter [id number] 07/20 [place] [facility] [place] [facility] Outpatient Encounter [id number] SA RA Nata BRITT 07/20 [place] [facility] [place] [facility] Outpatient Encounter [id number] 07/21 [place] [facility] [place] [facility] Outpatient Encounter [id number] 07/21 [place] [facility] [place] [facility] HC PRO PHONE CALL 11-20 MIN [id number] Diagnos is: ICD-10- CM O09.521 Supervi ozzie of elderly multigr avida, first trimest er
STEVE SOLOMON 07/21 [place] [facility] [place] [facility] Outpatient Encounter [id number] 07/21 [place] [facility] [place] [facility] Outpatient Encounter [id number] Kajal MCDONALD 07/22 [place] [facility] [place] [facility] Outpatient Encounter [id number] 07/22 [place] [facility] [place] [facility] Outpatient Encounter [id number] 08/07 [place] [facility] [place] [facility] Outpatient Encounter [id number] 08/11 [place] [facility] [place] [facility] HC PRO PHONE CALL 5-10 MIN [id number] Diagnos is: ICD-10- CM O09.521 Supervi zozie of elderly multigr avida, first trimest er
STEVE SOLOMON 09/04 [facility] [place] [facility] HC PRO PHONE CALL 5-10 MIN [id number] [id number] Diagnos is: ICD-10- CM O09.521 Supervi ozzie of elderly multigr avida, first trimest er
SOLOMON, STEVE K 09/07 [place] [facility] [place] [facility] Outpatient Encounter [id number] 09/23 [place] [facility] [place] [facility] Outpatient Encounter [id number] 09/23 [place] [facility] [place] [facility] HC PRO PHONE CALL 5-10 MIN [id number] Diagnos is: ICD-10- CM O09.522 Supervi ozzie of elderly multigr avida, second trimest er
SOLOMON, STEVE K 10/28 [place] [facility] [place] [facility] Outpatient Encounter [id number] 10/29 [place] [facility] [place] [facility] HC PRO PHONE CALL 5-10 MIN [id number] [id number] Diagnos is: ICD-10- CM O09.523 Supervi ozzie of elderly multigr avida, third trimest er
SOLOMON, STEVE K 01/05 [place] [facility] [place] [facility] HC PRO PHONE CALL 5-10 MIN [id number] Diagnos is: ICD-10- CM O09.523 Supervi ozzie of elderly multigr avida, third trimest er
SOLOMON, STEVE K 01/13 [place] [facility] Procedures Combined list of: 1) Procedures from Department of Veterans Affairs facilities going back up to thelast 18 months, not all [place] non-surgical procedures are included; 2) All procedures from the Department of Defense facilities. Procedure Procedure Type Code Date Perfomer Comments Sour e EDUCATIONAL SUPPLIES, SUCH BOOKS, TAPES, AND PAMPHLETS, FOR THE PATIENT'S EDUCATION AT COST TO PHYSICIAN OR OTHER QUALIFIED HEALTH LOG CUTTER 8 [facility] RANGE OF MOTION MEASUREMENTS AND REPORT (SEPARATE PROCEDURE); EACH EXTREMITY (EXCLUDING HAND) OR EACH TRUNK SECTION (SPINE) 2 [facility] HEPATITIS A VACCINE (HEPA), ADULT DOSAGE, FOR INTRAMUSCULAR USE 8 [facility] SKIN TEST; TUBERCULOSIS, INTRADERMAL 8 [facility] PHYS/OTH QUALIFIED HEALTH LOG CUTTER QUALIFIED,EDUCATION, TRAIN,LICENSURE/REGU LATION (WHEN APPLICABLE) EDUC SER RENDERED TO PATS IN A GRP SETTING (EG,,OBESITY ,OR DIABETIC INSTRUCT) 8 [facility] ANTHRAX VACCINE, FOR SUBCUTANEOUS OR INTRAMUSCULAR USE 9 [facility] COLLECTION OF VENOUS BLOOD BY VENIPUNCTURE 9 [facility] INDIVIDUAL PSYCHOTHERAPY, INSIGHT ORIENTED, BEHAVIOR MODIFYING AND/OR SUPPORTIVE, IN AN OFFICE OR OUTPATIENT FACILITY, APPROXIMATELY 20 TO 30 MINUTES [id number] WITH THE PATIENT 9 [facility] RANGE OF MOTION MEASUREMENTS AND REPORT (SEPARATE PROCEDURE); EACH EXTREMITY (EXCLUDING HAND) OR EACH TRUNK SECTION (SPINE) 9 [facility] SKIN TEST; TUBERCULOSIS, INTRADERMAL 9 [facility] COLLECTION OF VENOUS BLOOD BY VENIPUNCTURE 9 [facility] PSYCHIATRIC DIAGNOSTIC INTERVIEW EXAMINATION 9 [facility] AUDIOMETRIC TESTING OF GROUPS 9 [facility] APPLICATION OF A MODALITY TO 1 OR MORE AREAS; HOT OR COLD PACKS 9 [facility] APPLICATION OF A MODALITY TO 1 OR MORE AREAS; HOT OR COLD PACKS 9 [facility] SCREENING PAPANICOLAOU SMEAR; OBTAINING, PREPARING AND CONVEYANCE OF CERVICAL OR VAGINAL SMEAR TO LABORATORY 9 [facility] INDIVIDUAL PSYCHOTHERAPY, INSIGHT ORIENTED, BEHAVIOR MODIFYING AND/OR SUPPORTIVE, IN AN OFFICE OR OUTPATIENT FACILITY, APPROXIMATELY 45 TO 50 MINUTES [id number] WITH THE PATIENT 9 [facility] THERAPEUTIC PROCEDURE, 1 OR MORE AREAS, EACH 15 MINUTES; THERAPEUTIC EXERCISES TO DEVELOP STRENGTH AND ENDURANCE, RANGE OF MOTION AND FLEXIBILITY 9 [facility] SELF-CARE/HOME MANAGMENT TRAIN (EG,ACT OF DAILY LIVING (ADL) &COMPENSAT TRAIN,MEAL PREPARATION,SAFETY PROCS,AND INSTRUCT IN USE OF ASST TECHNOLOGY DEV/ADPT EQUIP) DIR ONE-ON-ONE CONT,EA 15 MINUTES 9 [facility] PSYCHIATRIC DIAGNOSTIC INTERVIEW EXAMINATION 9 [facility] INJECTION, PENICILLIN G BENZATHINE, UP TO 2,400,000 UNITS 8 [facility] THERAPEUTIC PROCEDURE, 1 OR MORE AREAS, EACH 15 MINUTES; THERAPEUTIC EXERCISES TO DEVELOP STRENGTH AND ENDURANCE, RANGE OF MOTION AND FLEXIBILITY 8 [facility] HEPATITIS A VACCINE (HEPA), ADULT DOSAGE, FOR INTRAMUSCULAR USE 8 [facility] AUDIOMETRIC TESTING OF GROUPS 8 [facility] Range Of Motion Evaluation Of Extremity Range Of Motion Evaluation Of Extremity 68048 2 ROM SALAZAR [facility] Psychotherapy Individual Approximately 30 Minutes Psychotherapy Individual Approximately 30 Minutes 31607 9 MANSOOR TOLBERT [facility] Range Of Motion Evaluation Of Extremity Range Of Motion Evaluation Of Extremity 82304 9 MAYA BECKMAN [facility] Audiometry Group Testing Audiometry Group Testing 64408 9 STEVAN TAYLOR [facility] Modalities Heat Hot Packs Modalities Heat Hot Packs 00994 9 [facility] Physical Medicine - Group Physical Therapy Se ion Physical Medicine - Group Physical Therapy Session 80034 9 [facility] Modalities Heat Hot Packs Modalities Heat Hot Packs 24411 9 [facility] Physical Medicine - Group Physical Therapy Se ion Physical Medicine - Group Physical Therapy Session 32720 9 [facility] Screening papanicolaou smear; obtaining, preparing and conveyance of cervical or vaginal smear to laboratory 9 CANDACE CORDOVA [facility] Clinical Social Work Individual Outpatient Counseling 45 Minutes Clinical Social Work Individual Outpatient Counseling 45 Minutes 33296 9 CASSIDY MONTES [facility] Physical Therapy: ___ Se ion Segments, 15 Minutes Each Physical Therapy: ___ Session Segments, 15 Minutes Each 88405 9 [facility] Modalities Heat Hot Packs Modalities Heat Hot Packs 81017 9 [facility] Physical Medicine - Group Physical Therapy Se ion Physical Medicine - Group Physical Therapy Session 95117 9 [facility] Patient Counseling Medical Management Individual Patient Patient Counseling Medical Management Individual Patient 44392 9 GERALD FLORES DoD A e /Interv Discharge Meds Reconciled W/ Current Meds List 9 GERALD FLORES [facility] Physical Therapy Service Evaluation Physical Therapy Service Evaluation 20315 9 VICTOR HUGO LAWRENCE [facility] Phys Therapy Education Self Care Training - Per 15 Minutes Phys Therapy Education Self Care Training - Per 15 Minutes 58397 9 VICTOR HUGO LAWRENCE Psychiatric Diagnostic Evaluation Comprehensive Examination Psychiatric Diagnostic Evaluation Comprehensive Examination [id number] 9 CASSIDY MONTES [facility] Patient Training And Self-Care Skills Patient Training And Self-Care Skills 50552 9 GERALD FLORES Patient Counseling Medical Management Individual Patient Patient Counseling Medical Management Individual Patient 62879 9 GERALD FLORES A e /Interv Discharge Meds Reconciled W/ Current Meds List 9 GERALD FLORES Patient Counseling Medical Management Individual Patient Patient Counseling Medical Management Individual Patient 92245 8 GERALD FLORES A e /Interv Discharge Meds Reconciled W/ Current Meds List 8 GERALD FLORES [facility] A isted Exercises For ROM Assisted Exercises For ROM 69304 8 CLARY NDIAYE [facility] Occupational Therapy Evaluation Occupational Therapy Evaluation 00561 8 CLARY NDIAYE Oropharynx Culture Streptococcus Group A Beta Hemolytic Oropharynx Culture Streptococcus Group A Beta Hemolytic 13012 8 GERALD FLORES [facility] Physician Supervised Injection Intramuscular Antibiotic Physician Supervised Injection Intramuscular Antibiotic 81839 8 GERALD FLORES [facility] Audiometry Group Testing Audiometry Group Testing 08419 8 AIME MEADE [facility] Physician Supervised Services Provision Of Educational Supplies Physician Supervised Services Provision Of Educational Supplies 74738 8 LOS HART [facility] Threshold Audiogram (Pure Tone) Threshold Audiogram (Pure Tone) 66053 8 LESLY CHRISTENSEN [facility] Audiometry Group Testing Audiometry Group Testing 09210 8 LESLY CHRISTENSEN [facility] Special Physician Services Analysis Of Computerized Data Special Physician Services Analysis Of Computerized Data 89645 8 LESLY CHRISTENSEN [facility] Physician Supervised Services Provision Of Special Supplies Physician Supervised Services Provision Of Special Supplies 76499 8 LESLY CHRISTENSEN [facility] Physician Supervised Group Educational Services 8 LESLY CHRISTENSEN [facility] Ear mold/insert, not disposable, any type 8 LESLY CHRISTENSEN [facility] Ear Protector Attenuation Measurements Ear Protector Attenuation Measurements 31016 8 LESLY CHRISTENSEN [facility] Skin Test Anergy Tuberculin Intradermal Skin Test Anergy Tuberculin Intradermal 50916 8 JOANNE TABARES [facility] Hepatitis A Vaccine Adult Dosage (Intramuscular Use) Hepatitis A Vaccine Adult Dosage (Intramuscular Use) 47436 8 GUSTAVO VELOZ [facility] Vaccines Viral Polio, Inactivated Vaccines Viral Polio, Inactivated 85484 8 GUSTAVO VELOZ [facility] Meningococcal Polysaccharide Vaccine Meningococcal Polysaccharide Vaccine 04927 8 GUSTAVO VELOZ [facility] Immunization Administration By Injection, Each Additional Vaccine 8 GUSTAVO VELOZ [facility] Td Vaccine Td Vaccine 54249 8 GUSTAVO VELOZ [facility] Immunization Administration By Injection, One Vaccine Immunization Administration By Injection, One Vaccine 00483 8 GUSTAVO VELOZ [facility] Social History Combined list of available smoking, tobacco, and other social history from Department of Defense and 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 Social History Type Response Date Comment Sourc e Tobacco smoking status NHIS VA-TOBACCO FORMER USER 07/22/2023 CORRINA TEIXEIRA [facility] History of tobacco use PR-TOBACCO QUIT 1 TO < 5 YRS 07/22/2023 [facility] History of tobacco use PR-TOBACCO FORMER USER 06/06/2022 [facility] History of tobacco use PREVIOUS SMOKER 11/21/2021 [facility] History of tobacco use PR-TOBACCO FORMER USER 09/06/2021 [facility] History of tobacco use VA-TOBACCO USER E VERY DAY 11/03/2020 [facility] History of tobacco use PR-TOBACCO USE WI 30 MIN OF WAKEUP 05/06/2018 [facility] This section is an empty social history section. [facility] Plan of Care List of future care activities from Department of 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 Additional future care activities may be listed in the Assessment and Plan section. Date/Time Care Activity Care Activity Detail Facili ty 04/13/2024 AMBULATORY - NONE AMBULATORY - NONE SIVA JOHANSENMae [facility] 02/18/2024 Laboratory - Improvement Engineer ry Order CBC and DIFF BLOOD SP ONCE [facility] 02/18/2024 Laboratory - Improvement Engineer ry Order ACT PART THROMBO TIME PLASMA SP ONCE [facility] 02/18/2024 Laboratory - Improvement Engineer ry Order PROTHROMBIN TIME/INR PLASMA SP ONCE [facility] 02/18/2024 Laboratory - Improvement Engineer ry Order HEMOGLOBIN A1C BLOOD SP ONCE [facility] 02/18/2024 Laboratory - Improvement Engineer ry Order BASIC METABOLIC PANEL+MG PLASMA SP ONCE [facility] 03/04/2024 Laboratory - Improvement Engineer ry Order HCG, QUAL URINE SP ONCE [facility]
--- OUTSIDE RECORDS SUMMARY | 2024-02-11 13:58 | XMS_ITS | Clinical Summary ---
Author Organization [facility] Address [address] [place] [address] Care Team Providers Care Emergency Operator Name Role Phone Unavailable Primary Care [...] for each transition of care or referral. [facility] Social History Tobacco Use Types Packs/Day Years [...] on patient's age to complete this topic Infant RSV Aged Out No longer eligi ble based on patient's age to complete this topic MCV4 Aged Out No longer eligi ble based on patient's age to complete this topic Pneumococcal Aged Out No longer eligi ble based on patient's age to complete this topic Kailey Jackson Personal/Family Self 1990 [id number] [address] [place] [id number] Kailey Jackson Workers Comp Self 1990 [place] [place] [id number]
--- OUTSIDE RECORDS SUMMARY | 2024-02-11 13:58 | XMS_ITS | Clinical Summary ---
Author Organization [facility] Address [address] [place] [address] Care Team Providers Care Printed Circuit Boards Stripper Etcher Name Role Phone No Ref-Primary, Physician Primary [...] VACCINE (1 - Risk 1-dose series) 01/17/2024 GROUP B STREP SCREENING 02/14/2024 YEARLY PREVENTIVE VISIT 05/28/2024 05/29/2023, 12/26 PAP [...] age to complete this topic Insurance [place] [id number] [facility] [place] [address] [facility] Care Teams Printed Circuit Boards Stripper Etcher Relationship Specialty Start Date End Date No Ref-Primary, Physician PCP - General 10/20/23
--- OUTSIDE RECORDS SUMMARY | 2024-02-11 13:58 | XMS_ITS | Referral Summary ---
Author Organization [facility] Address [address] [place] [address] Care Team Providers Care Ball Holder Name Role Phone No Ref-Primary, Physician Primary [...] Plan of Treatment Not on file Insurance [facility] [place] [address] [place] Care Teams Ball Holder Relationship Specialty Start Date End Date No Ref-Primary, Physician PCP - General 10/20/23
--- OUTSIDE RECORDS SUMMARY | 2024-02-11 13:59 | XMS_ITS ---
Author Organization [facility] Address [address] [place] [address] Care Team Providers Care Director Of Industrial Relations Name Role Phone Unavailable Unavailable Unavailable Surgery Details Not on file Complications Check Surgery Details section. Procedure Estimated Blood Loss Check Surgery Details section. Procedure Findings Check Surgery Details section. Procedure Specimens Taken Check Surgery Details section.
--- OUTSIDE RECORDS SUMMARY | 2024-02-11 13:59 | XMS_ITS | Referral Summary ---
Author Organization [facility] Address [address] [place] [address] Care Team Providers Care Laborer Operator Name Role Phone Unavailable Primary Care Provider Unavailabl e Source Comments Patient records contain information from all sites at [facility]. For routine questions regarding patient records, call [phone] during business hours, M-F 8:00 AM - 5:00 PM Central Time. Record requests for emergency care only can be directed to [phone] at any time.[facility] Allergies No known active allergies Medications [...] B-12 ORAL) Take by mouth. Active prenat.vits,kandy, yoe-opla-hsulq tablet Take 1 tablet by mouth daily. 07/17/2023 Active Active Problems Patient Care Coordination No te Formatting of this note migh t be different from the original. Boyfrienmary Ulloa. His first baby! She is moving [facility] during the (likely summertime) Problem Noted Date Diagnosed Date Complication Morbid Obesity Body Mass Index Greater Than 40 08/13/2023 Body Mass Index 50.0 To 59.9 Adult 08/13/2023 Elderly Multigravida Greater Than 35 Y ear Old 08/13/2023 Overview (08/13/2023): Desires NIP Panorama, scheduled 08/20/23 Preexisting Hypertension 08/13/2023 Overview (08/13/2023): Baseline preeclampsia labs collected at [facility] Will begin 81 mg ASA at 12 weeks Depression Anxiety 08/13/2023 High Risk 08/13/2023 Overview (08/13/2023): BMI >50 Chronic HTN Elderly multigravida Anxiety/depression We discussed advanced level US, SEBASTIAN consult. She is very likely moving to [facility], and will be transferring her [...] drink = 0.6 oz pur e alcohol) [facility] Utilities Answer Date Recorded In the past 12 months has e [employer], gas, oil, or water company threatened to [...] Type Associated Problems Recent Progress Patient-Stated? Author [facility] Care Plan for Healthy Care Plan [facility] Care Plan for Healthy No Support, [facility] - Nicotine Dependency Chronic Care Plan [facility] Care Plan for Healthy No Support, [...] S Negative Negative 08/14/2023 10:25 AM CDT [facility] Comment: Consumption of high-dose biotin supplement within 12 hours of blood collection for this test can cause false-negative results. Blood (Blood, Venous) 08/13/2023 4:52 PM CDT 08/14/2023 7:24 AM CDT us Loreta Ramirez APRN, C.N.P. LAB MICROBIOLOGY - BLO OD ORDERABLES Final Result [facility] [address] [place] [address] [facility] [address] [place] [address] * HIV-1/-2 Ag and Ab Scrn, Plasma [...] MICROBIOLOGY - BLO OD ORDERABLES Final Result [facility] [address] [place] [address], [place] ECLR [facility] [address] [place] [address] from Last 3 Months or Most Recently Relevant to Health Maintenance Additional Health Concerns Active Problems Noted Date Diagnosed Date [facility] Care Plan for Healthy 08/30 Insurance [facility]
--- OUTSIDE RECORDS SUMMARY | 2024-02-11 13:59 | XMS_ITS | Clinical Summary ---
Author Organization [facility] Address [place], [place] [address] Care Team Providers Care Button Breaker Operator Name Role Phone Beata Mastersonla Primary Care Provider [phone] Allergies No known active allergies Medications Medication Sig Dispensed Refills Start Date End Date Status NIFEdipine ER (ADALAT CC) 30 mg extended-Release tablet Take 1 Tablet by mouth once daily. 07/19/2022 Active famotidine (PEPCID) 20 mg tabletIndications:Ga stroesophageal reflux disease, unspecified whether esophagitis present Take 1 Tablet (20 mg) by mouth two times daily. 60 Tablet 07/17/2023 Active Cdmbbjrs-Cp-Qda-Fe-F A tab tabletIndications:Va ginal bleeding in Take [...] 08/06/23, provider advised to discuss with her [place] [employer] CAR UNLOADER provider) Chronic fatigue 05/07/2016 Overview (09/09/2017): 09/09/2017: Cardiology evaluation. Benign palpitations. Vitamin D deficiency 10/30/2012 Overview (06/20/2017): VITAMIN D TOTAL Date Value Ref Range Status 06/19/2017 22.9 (L) 30.0 - 80.0 ng/mL Final 10/17/2015 30.1 30.0 - 80.0 ng/mL Final 10/29/2012 18.4 (L) 30.0 - 80.0 ng/mL Final 06/20/2017: [place] 00039 IU twice weekly x8 weeks, vit d [...] Bottle feeding. 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 Progress Notes (Episode) 07/22/2011 GA: 17w0d Doing much better today. Was seen on 07/18 for abdominal tightening/cramping. Now is back to normal. Ultrasound was fine on Friday. Declines quad screen today. No movement yet. No bleeding. Feeling well otherwise PLAN: -- Follow up in 3 weeks -- 20 week ultrasound around that time. -- Rvuk-sm-uulj for chlamydia today Lary Aguilera MD .................... [...] 7. Baby's care provider (Please use notes), [place] [facility] / Rooming in, Circumcision 8. Brochures [...] screen, but probably not -- Will need bqgz-ko-awzz for chlamydia next month. 06/04/2011 10w1d First [...] Description 12/31/2023 2:00 PM CDT Office Visit [facility] [address] [facility] [place] [address] Moe Mendez NP Sinus Problem (Patient presents with pressure, cough,. Has been going on for x 1 week /) 12/31/2023 Travel 12/17/2023 Travel 11/27/2023 2:00 PM CDT Office Visit [facility] [address] [facility] [place] [address] Moe Mendez NP UTI (patient presents with burning upon urination and she states that it feels like she isn't fully emptying her bladder- symptoms began 1 week ago. patient is 25 weeks ) 11/27/2023 Travel 11/25/2023 4:05 PM CDT Office Visit [facility] [address] [facility] [place] [address] Monica Reyes PA Derm Problem (wart between rectum and vagina) 11/25/2023 Travel 11/11/[address] [facility] [address] [facility] [place] [address] Abiola Masterson DO Results from Last 3 [...] History Relation Name Comments Good Health Brother NASIR Hyperlipidemia Father Hypertension Father Cancer Maternal Grandfather [...] Livin g 9 9 Chris Matute Delivery Location:[facility] Comments:Prolonged sec ond stage Current Last [...] st Contact Info) Description 04/14/2024 2:30 PM RETAIL PROPERTY MANAGER Telemedicine [facility] [address] [place] [address] Valencia Barraza PA [address] [facility] [address] [place] [address] Health Maintenance Due Date Last Done Comments COVID-19 vaccine series ( season) 2023 Influenza for age 9-49 11/30/2023 3, 12/09/2011, 06/04/2011, Additional history exists Depression screening for age 12+ 04/18/2024 04/18/2023, 10/20/2019, 10/18/2019, Additional history exists BMI (ht and wt on same day) for age 18+ 05/28/2024 05/29/2023, 02/16/2023, 12/27/2019, Additional history exists Pap test for age 21-65 05/28/2026 4, 05/29/2023, 12/27/2019, Additional history exists Tetanus booster [...] 2:01 PM CDT Vaginal pain Urethritis, nonspecific MAIL AGENT THIN PREP PAP SCREEN IMAGED Routine 05/29/2023 3:02 PM RETAIL PROPERTY MANAGER Screening for malignant neoplasm of cervix ANTI HIV 1/2 Routine 12/27/2019 4:02 PM CDT Screening examination for venereal disease ANTI HCV Routine 12/27/2019 4:02 PM CDT Screening examination for venereal disease from Last 3 Months or Most Recently Relevant to Health Maintenance Results * URINE CULTURE (11/27/2023 2:01 PM CDT) CULTURE 10-50,000 CFU/mL of multiple organisms, probable contaminants 11/28/2023 5:41 PM CDT [facility] Urine URINE SPECIMEN / Unknown Non-Blood / Unknown 11/27/2023 2:01 PM CDT 11/27/2023 2:01 PM CDT Moe Mendez NP MICROBIOLOGY [facility] [address] [place] [address], [place] * (ABNORMAL) UA W/ SEDIMENT EXAM REFLEXED PER CRITERIA (11/27/2023 2:01 PM CDT) COLOR Yellow Yellow Color 11/27/2023 2:07 PM CDT [facility] CLARITY Clear Clear Clarity 11/27/2023 2:07 PM CDT [facility] SPECIFIC GRAVITY,URINE >=1.030(A) 1.010, 1.015, 1.020, 1.025 11/27/2023 2:07 PM CDT [facility] PH,URINE 6.0 6.0, 7.0, 8.0, 5.5, 6.5, 7.5, 8.5 11/27/2023 2:07 PM CDT [facility] UROBILINOGEN, QUALITATIVE Normal Normal EU/dl 11/27/2023 2:07 PM CDT [facility] PROTEIN, URINE Trace(A) Negative mg/dL 11/27/2023 2:07 PM CDT [facility] GLUCOSE, URINE Negative Negative mg/dL 11/27/2023 2:07 PM CDT [facility] KETONES,URINE Negative Negative mg/dL 11/27/2023 2:07 PM CDT [facility] BILIRUBIN,URI NE Negative Negative 11/27/2023 2:07 PM CDT [facility] OCCULT BLOOD,URINE Negative Negative 11/27/2023 2:07 PM CDT [facility] NITRITE Negative Negative 11/27/2023 2:07 PM CDT [facility] LEUKOCYTE ESTERASE Negative Negative 11/27/2023 2:07 PM CDT [facility] Urine URINE SPECIMEN / Unknown Non-Blood / Unknown 11/27/2023 2:01 PM CDT 11/27/2023 2:01 PM CDT Juan Mu Umair Mendez ENGINE LATHE OPERATOR URINE [facility] [address] [place] [address], [place] [phone] * (ABNORMAL) MAIL AGENT THIN PREP PAP SCREEN IMAGED [[id number]] (05/29/2023 3:02 PM RETAIL PROPERTY MANAGER) Case Report Gynecologic Cytology Report ? Case: [id number] ? Authorizing Provider: ??Abiola Masterson, ?Collected: ? 05/29/2023 1502 ? [facility]ing Location[facility] ? [facility] ? Received: ?05/29/2023 1537 ? Clinic ? First Screen: ?Maurisio, Jere ? Pathologist: ? Sonai Nolasco ? MD Eloisa ? Specimen: ?MAIL AGENT ThinPrep Vial Screening, Cervical ? 06/06/2023 4:27 PM RETAIL PROPERTY MANAGER [facility] INTERPRETATION/ RESULT ATYPICAL SQUAMOUS CELLS OF UNDETERMINED SIGNIFICANCE (ASCUS)(A) (none) 06/06/2023 4:27 PM [facility] IMEN ADEQUACY Satisfactory for evaluation Endocervical component present 06/06/2023 4:27 PM RETAIL PROPERTY MANAGER [facility] HPV REQUEST HPV and PAP 06/06/2023 4:27 PM RETAIL PROPERTY MANAGER [facility] Date of LMP unknown 06/06/2023 4:27 PM RETAIL PROPERTY MANAGER [facility] Last Pap Date 12/27/19 06/06/2023 4:27 PM RETAIL PROPERTY MANAGER [facility] Last Pap Result LSIL 4:27 PM RETAIL PROPERTY MANAGER [facility] Abnormal Pap or Pompeys Pillar Bx in last 5 years Yes 06/06/2023 4:27 PM RETAIL PROPERTY MANAGER [facility] Menstrual Status Irregular Periods 06/06/2023 4:27 PM RETAIL PROPERTY MANAGER [facility] Pompeys Pillar Bx Done Today No 06/06/2023 4:27 PM RETAIL PROPERTY MANAGER [facility] Additional Information None given 06/06/2023 4:27 PM RETAIL PROPERTY MANAGER [facility] Comment: Cytology is screened at [facility] - [address], [place] [address] and [facility] - [address], [place] [address] and [facility] - [address] [place] [address] [facility] - [address], [place] [address] Automated Review Successful 06/06/2023 4:27 PM [facility] Comment:Specimen processed s uccessfully by automated operations manager station device, ThinPrep Imaging System, [employer] ANCILLARY TESTING MAIL AGENT HPV Ordered, Please see separate report 06/06/2023 4:27 PM [facility] Note The pap test is [...] pre-malignant and malignant lesions. 06/06/2023 4:27 PM [facility] Other (Cervical) Non-Blood / Unknown 05/29/2023 3:02 PM RETAIL PROPERTY MANAGER 05/29/2023 3:37 PM RETAIL PROPERTY MANAGER Abiola Masterson DO PATHOLOGY/CYTOLOGY [facility] [address] [place] [address], [place] * ANTI HCV (12/27/2019 4:02 PM CDT) Pathologist [facility] HEPATITIS C ANTIBODY Non-React vidal Non-React vidal 12/28/2019 3:55 PM CDT [facility] Comment:Antibodies to HCV no t detected; does not exclude the possibility of exposure to HCV. Blood BLOOD SPECIMEN / Unknown Butterfly / Unknown 12/27/2019 4:02 PM CDT 12/27/2019 4:06 PM CDT Yanet Alvarez MD SEND OUTS [facility] [address] [place] [address], [place] * ANTI HIV 1/2 (12/27/2019 4:02 PM CDT) Pathologist [facility] HIV-1/HIV-2 ANTIBODY Non-Reacti ve Non-Reacti ve 12/28/2019 3:52 PM CDT [facility] Comment:HIV-1 p24 and HIV-1/ HIV-2 Ab not detected. Blood BLOOD SPECIMEN / Unknown Butterfly / Unknown 12/27/2019 4:02 PM CDT 12/27/2019 4:06 PM CDT Yanet Alvarez MD SEND OUTS [facility] [address] [place] [address], [place] from Last 3 Months or Most Recently [...] 8:21 PM 12/28/2011 11:54 PM Care Teams Button Breaker Operator Relationship Specialty Start Date End Date Abiola Masterson DO [address] [place] [address] PCP - General Family Practice 04/14/23
--- OUTSIDE RECORDS SUMMARY | 2024-02-11 13:59 | XMS_ITS | Clinical Summary ---
Author Organization [facility] Address [address] [place] [address] Care Team Providers Care Range Feeder Name Role Phone Unavailable Primary Care Provider Unavailabl e Source Comments Patient records contain information from all sites at [facility]. For routine questions regarding patient records, call [phone] during business hours, M-F 8:00 AM - 5:00 PM Central Time. Record requests for emergency care only can be directed to [phone] at any time.[facility] Allergies No known active allergies Medications pyridoxine [...] B-12 ORAL) Take by mouth. Active prenat.vits,kandy, hxb-vzrn-qhbaj tablet Take 1 tablet by mouth daily. 07/17/2023 Active Active Problems Patient Care Coordination No te Formatting of this note migh t be different from the original. Boyfrienmary Ulloa. His first baby! She is moving [facility] during the (likely summertime) Problem Noted Date Diagnosed Date Complication Morbid Obesity Body Mass Index Greater Than 40 08/13/2023 Body Mass Index 50.0 To 59.9 Adult 08/13/2023 Elderly Multigravida Greater Than 35 Y ear Old 08/13/2023 Overview (08/13/2023): Desires NIP Panorama, scheduled 08/20/23 Preexisting Hypertension 08/13/2023 Overview (08/13/2023): Baseline preeclampsia labs collected at [facility] OB Will begin 81 mg ASA at 12 weeks Depression Anxiety 08/13/2023 High Risk 08/13/2023 Overview (08/13/2023): BMI >50 Chronic HTN Elderly multigravida Anxiety/depression We discussed advanced level [facility]SEBASTIAN consult. She is very likely moving to [facility], and will be transferring her [...] drink = 0.6 oz pur e alcohol) [facility] Utilities Answer Date Recorded In the past 12 months has [employer] e electric, gas, oil, or water company [...] Associated Problems Recent Progress Patient-Stated? Author [facility] Care Plan for Healthy Care Plan [facility] Care Plan for Healthy No Support, [facility] Nic[facility] Dependency Chronic Care Plan [facility] Care Plan for Healthy No Support, [employer] [...] S Negative Negative 08/14/2023 10:25 AM CDT [facility] Comment: Consumption of high-dose biotin supplement within 12 hours of blood collection for this test can cause false-negative results. Blood (Blood, Venous) 08/13/2023 4:52 PM CDT 08/14/2023 7:24 AM CDT us Loreta Ramirez APRN, C.N.P. LAB MICROBIOLOGY - BLO OD ORDERABLES Final Result [facility] [address] [place] [address] [facility] [address] [place] [address] * HIV-1/-2 Ag and Ab Scrn, Plasma [...] MICROBIOLOGY - BLO OD ORDERABLES Final Result [facility] [address] [place] [id number], [place] ECL[facility] in [address] [address] from Last 3 Months or Most Recently Relevant to Health Maintenance Additional Health Concerns Active Problems Noted Date Diagnosed Date [facility] Care Plan for Healthy 08/30 Insurance [facility]
--- NOTE | 2024-02-11 14:00 | CRLHL7_ITS ---
For Patients: As a result of the Century Cures Act, medical imaging exams and procedure reports are released immediately into your electronic medical record. You may view this report before your referring provider. If you have questions, please contact your health care provider. INDICATION: Obesity TECHNIQUE: Ultrasound OB pelvis transabdominal. Real-time hoang-scale imaging of the fetus was performed with color Doppler and spectral Doppler analysis of the umbilical artery without stress testing. COMPARISON: 02/04/2024 FINDINGS: Sonographic imaging demonstrates a single living intrauterine gestation. Fetus demonstrates a regular cardiac rate of 155 beats per minute. Fetus has a cephalic orientation. The placenta lies posterior. Amniotic fluid volume appears normal with a MVP of 7.7 cm. breathing movements, motion, and tone were all observed. IMPRESSION: Single viable intrauterine with a biophysical profile 11/05. Dictated by Jere Neri MD @ 02/11/2024 3:46:57 PM (Electronically Signed)
== END 2024-02-11 13:56 | disposition home or self-care (01) ==
LOC: US 13:56
PROVIDERS: Visit Provider Obstetrics & Gynecology
DX: O99.210 Obesity complicating pregnancy, unspecified trimester (principal); E66.01 Morbid (severe) obesity due to excess calories; Z68.43 Body mass index [BMI] 50.0-59.9, adult
CPT/HCPCS: 76819; 82565; 84450; 84460

== ENCOUNTER 2024-02-18 13:47 | Outpatient (CLI) | payer OTHER, MEDICAID, SELFPAY ==
--- OUTSIDE RECORDS SUMMARY | 2024-02-22 03:27 | XMS_ITS | Continuity of Care Document ---
Author Name DOD-CT Organization [facility] Care Team Providers Care Obstetrics Specialist Name Role Phone [facility] Unavailable Unavailable Problems Combined list of problems from Department of Defense and 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 It does not include entries that were removed or entered in error. Problem Status Onset Date Problem Type Date of Resolution Comments Source Anxiety Active Condition [facility] Attention deficit hyperactivity disorder, predominantly inattentive type Active Condition [facility] Cancer cervix screening status Active Condition Nov 21 Entered By: MAILE RAZA Comment: No hx [facility]J 2-3Aug 2021 Entered By: MAILE RAZA Comment: 12/07/20 Colposcopy neg/ECC negAug 2021 Entered By: MAILE RAZA Comment: 11/15/21 PAP NILM/HPV neg. Next co-test due in 3 years (10/2024). [facility] Fatigue Active Condition [facility] Major depressive disorder Active Condition [facility] Nasal congestion Active Condition [facility] White blood cell count abnormal Active Condition Nov 08, 2020 Entered By: MAILE RAZA Comment: chronic, peripheral smear done 10/2020 [facility] breathing-related sleep disorders Active Condition [facility] fatigue Active Condition [facility] Body Mass Index Active Condition [facility] routine examination Active Condition [facility] adjustment disorder with disturbance of emotions and conduct Active Condition [facility] nasal passage blockage (stuffiness) Active Condition [facility] smoking cigarettes Active Condition [facility] obesity Active Condition [facility] visit for: [facility] physical medical evaluation board (MEB) [...] For Vaccination Against Bacterial Diseases Inactive Condition [facility] Diagnosis: ICD-10-CM O09.523 Supervision of elderly multigravida, third trimester Active Diagnosis [facility] Diagnosis: ICD-10-CM O09.522 Supervision of elderly multigravida, second trimester Active Diagnosis [facility] Diagnosis: ICD-10-CM O09.521 Supervision of elderly multigravida, first trimester Active Diagnosis [facility] Diagnosis: ICD-10-CM J34.2 Deviated nasal septum Active Diagnosis [facility] Diagnosis: ICD-10-CM E66.01 Morbid (severe) obesity due to excess calories Active Diagnosis [facility] Diagnosis: ICD-10-CM M54.50 Low back pain, unspecified Active Diagnosis [facility] Diagnosis: ICD-10-CM F90.0 Attn-defct hyperactivity disorder, predom inattentive type Active Diagnosis [facility] Diagnosis: ICD-10-CM F41.9 Anxiety disorder, unspecified Active Diagnosis [facility] Diagnosis: ICD-10-CM M25.552 Pain in left hip Active Diagnosis [facility] Diagnosis: ICD-10-CM R09.81 Nasal congestion Active Diagnosis [facility] Diagnosis: ICD-10-CM L70.8 Other acne Active Diagnosis [facility] Diagnosis: ICD-10-CM K58.2 Mixed irritable bowel syndrome Active Diagnosis [facility] Diagnosis: ICD-10-CM H52.03 Hypermetropia, bilateral Active Diagnosis [facility] Diagnosis: ICD-10-CM R53.82 Chronic fatigue, unspecified Active Diagnosis [facility] Diagnosis: ICD-10-CM Z13.89 Encounter for screening for other disorder Active Diagnosis [facility] Medications Combined list of outpatient medications from Department of Defense and [facility] Affairs facilities.Medications provided include 1) outpatient medications [...] OR WHEEZING RESPIR ATORY (INHAL ATION) 11/07/2023 [id number] ALBERTO MCLAUGHLIN ANNETTE 2023 1 [facility] CICLOPIROX 8% SOLN,TOP APPLY THIN FILM TOPICALL Y EVERY DAY FOR FUNGAL NAIL INFECTIO N -- USE UNTIL RESOLUTI ON OR 48 WEEKS TOPICA L 01/01/2024 [id number] 3 LEOPOLDO GUERRERO L 2022 19.8 [facility] FLUCONAZOLE 150MG TAB TAKE ONE TABLET BY MOUTH ONCE FOR ONE DOSE ORAL DISCONT INUED 06/13/2023 [id number] 4 Bonny FELIPE S 2023 1 [facility] IMIQUIMOD 5% CREAM,TOP,P KT,0.25GM APPLY 1 PACKET TOPICALL Y FRIDAY, Y AND FRIDAY AT BEDTIME LEAVE ON SKIN FOR 8 HOURS. DO NOT USE WHILE TOPICA L ACTIVE 10/30/2024 [id number] 4 FB-HRDLIC JAH SMITH 2023 24 [facility] METRONIDAZO LE 500MG TAB TAKE ONE TABLET BY MOUTH TWICE A DAY FOR 7 DAYS ORAL DISCONT INUED 06/13/2023 [id number] 4 Bonny FELIPE 2023 14 [facility] MODAFINIL 200MG TAB TAKE ONE AND ONE-HALF TABLETS BY MOUTH EVERY MORNING FOR MOOD, ENERGY ORAL DISCONT INUED BY PROVIDE R 05/31/2023 [id number] 4 COUNCIL,Sherine BIGAIL E 2022 45 [facility] MULTIVITAMI NS W/MINERALS, CAP/TAB TAKE 1 TABLET BY MOUTH EVERY DAY FOR SUPPLEME NT ORAL ACTIVE 08/07/2024 [id number] 4 BINA BAI 2023 100 [facility] MULTIVITAMI NS W/MINERALS, CAP/TAB TAKE 1 TABLET BY MOUTH EVERY DAY FOR SUPPLEME NT ORAL DISCONT INUED 07/20/2023 [id number] 3 BINA BAI 2022 100 [facility] NIFEDIPINE (EQV-CC) 30MG TAB,SA TAKE ONE TABLET BY MOUTH EVERY DAY FOR BLOOD PRESSURE ORAL ACTIVE 08/07/2024 [id number] 4 BINA BAI 2023 90 [facility] NIFEDIPINE (EQV-CC) 30MG TAB,SA TAKE ONE TABLET BY MOUTH EVERY DAY FOR BLOOD PRESSURE ORAL DISCONT INUED 07/20/2023 [id number] 4 BINA BAI 2022 90 [facility] OMEPRAZOLE 20MG CAP,EC TAKE TWO CAPSULES BY MOUTH EVERY DAY BEFORE A MEAL ORAL DISCONT INUED 08/15/2023 [id number] 4 CAT-IMANI BENNETT W 2023 60 [facility] VENLAFAXINE HCL 150MG 24HR CAP,SA TAKE ONE CAPSULE BY MOUTH EVERY DAY FOR ANXIETY, PAIN ORAL DISCONT INUED BY PROVIDE R 01/17/2024 [id number] 4 COUNCIL,A BIGAIL E 2022 90 [facility] VENLAFAXINE HCL 37.5MG 24HR CAP,SA TAKE ONE CAPSULE BY MOUTH EVERY DAY WITH A MEAL ORAL DISCONT INUED BY PROVIDE R 07/05/2023 [id number] 4 EDEN ABDOULAYE Linton 2023 14 [facility] VENLAFAXINE HCL 75MG 24HR CAP,SA TAKE ONE CAPSULE BY MOUTH EVERY DAY WITH MEAL FOR 14 DAYS ORAL DISCONT INUED BY PROVIDE R 07/05/2023 [id number] 4 EDEN LintonABDOULAYE 2023 14 [facility] VENLAFAXINE HCL 75MG 24HR CAP,SA TAKE ONE CAPSULE BY MOUTH EVERY DAY FOR ANXIETY, PAIN ORAL DISCONT INUED (EDIT) 11/29/2023 [id number] COUNCIL,A BIGAIL E 2022 90 [facility] [...] Site Reaction Lot Number CVX Code Drug 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 (NOV) complet ed Novel influenza -[id number], injectabl e DoD anthrax vaccine 2 2008 [id number] [facility] [employer] ([facility]) complet ed anthrax vaccine DoD anthrax vaccine 1 2008 [id number] [facility] complet ed anthrax vaccine DoD vaccinia (smallpox) vaccine 1 2008 UNK 75 Unknown (UNK) Not Given vaccinia (smallpox ) vaccine DoD typhoid Vi capsular polysaccharid e vaccine 1 2008 [id number] Unknown (UNK) comple t ed typhoid Vi capsular polysacch aride vaccine DoD human papilloma virus vaccine, quadrivalent 1 2008 IBETH RUBY P [id number] 62 Merck (MSD) complet ed human papilloma virus vaccine, quadrival ent DoD influenza virus vaccine, live, attenuated, for intranasal use 1 2007 [id number] Other (OTH) complet ed influenza virus vaccine, live, attenuate d, for intranasa l use DoD hepatitis A vaccine, adult dosage 2 2007 [id number] 52 Unknown (UNK) complet ed hepatitis A vaccine, adult dosage DoD TDAP 2007 115 complet ed [place] [facility] measles, mumps and rubella virus vaccine 1 2007 UNK 03 Unknown (UNK) Not Given measles, mumps and rubella virus vaccine DoD poliovirus vaccine, inactivated 1 2007 [id number] Sanofi Pasteur (PMC) complet ed polioviru s vaccine, inactivat ed DoD varicella virus vaccine 1 2007 UNK 21 Unknown (UNK) Not Given varicella virus vaccine DoD hepatitis B vaccine, adult dosage 1 2007 UNK 43 Unknown (UNK) Not Given hepatitis B vaccine, adult dosage DoD hepatitis A vaccine, adult dosage 1 2007 [id number] 52 Reclogine (SKB) complet ed hepatitis A vaccine, adult dosage DoD influenza virus vaccine, live, attenuated, for intranasal use 1 2007 [id number] [place] (MED) complet ed influenza virus vaccine, live, attenuate d, for intranasa l use DoD meningococcal polysaccharid e (groups A, C, Y and W-135) diphtheria toxoid conjugate vaccine (MCV4P) 1 2007 [id number] 114 Sanofi Pasteur (PMC) complet ed meningoco ccal polysacch aride (groups A, C, Y and W-135) diphtheri a toxoid conjugate vaccine (MCV4P) DoD tetanus toxoid, reduced diphtheria toxoid, and acellular pertu is vaccine, adsorbed 1 2007 [id number] Sanofi Pasteur (PMC) complet ed tetanus [...] Dec 31, 2022 01:23 PM Reporting Lab: [facility] [address] Performing Lab: [facility] [address] [facility] C.TRACHO MATIS/N. GONORRHE A DNA NEISSERIA GONORRHOEA E DNA [PRESENCE] IN URINE BY MAL WITH PROBE DETECTION NOT DETECTED 12/31 Specimen Type: URINE No comment entered. Ordering Provider: Agny GUERRERO Report Released Date/Time: Dec 31, 2022 01:23 PM Reporting Lab: [facility] [address] Performing Lab: [facility] [address] [facility] IS [facility] C.TRACHO MATIS/N. GONORRHE A DNA INTERPRETA TION AND REVIEW OF LABORATORY RESULTS Infectio us agent DNA is not detected by this assay 12/31 Specimen Type: URINE No comment entered. Ordering Provider: Angy GUERRERO Report Released Date/Time: Dec 31, 2022 01:23 PM Reporting Lab: [facility] [address] Performing Lab: [facility] [address] [facility] IS [facility] HCG, QUAL CHORIOGONA DOTROPIN.B ETA SUBUNIT ( TEST) [PRESENCE] IN URINE NEGATIVE 12/31 Specimen Type: URINE No comment entered. Ordering Provider: Angy GUERRERO Report Released Date/Time: Dec 31, 2022 01:23 PM Reporting Lab: [facility] [address] Performing Lab: [place] [phone] [place] [facility] LIPID PANEL,NO N-FASTIN G CHOLESTERO [...] Jul 19, 2022 09:34 AM Reporting Lab: [facility] [address] Performing Lab: [facility] [address] [facility] LIPID PANEL,NO N-FASTIN G CHOLESTERO [...] Jul 19, 2022 09:34 AM Reporting Lab: [facility] [address] Performing Lab: [facility] [address] [place] [facility] LIPID PANEL,NO N-FASTIN G CHOLESTERO L [...] Jul 19, 2022 09:34 AM Reporting Lab: [facility] [address] Performing Lab: [facility] [address] [place] [facility] LIPID PANEL,NO N-FASTIN G CHOLESTERO L [...] Jul 19, 2022 09:34 AM Reporting Lab: [facility] [address] Performing Lab: [facility] [address] [place] [facility] LIPID PANEL,NO N-FASTIN G CHOLESTERO L [...] Jul 19, 2022 09:34 AM Reporting Lab: [facility] [address] Performing Lab: [facility] [address] [place] [facility] LIPID PANEL,NO N-FASTIN G TRIGLYCERI DE [...] Jul 19, 2022 09:34 AM Reporting Lab: [facility] [address] Performing Lab: [facility] [address] [facility] C-REACTI VE PROTEIN C REACTIVE PROTEIN [...] Jul 19, 2022 09:34 AM Reporting Lab: [facility] [address] Performing Lab: [facility] [address] [facility] COMPREHE NSIVE METABOLI C PANEL+MG CREATININE [...] Jul 19, 2022 09:34 AM Reporting Lab: [facility] [address] Performing Lab: [facility] [address] [facility] COMPREHE NSIVE METABOLI C PANEL+MG UREA [...] Jul 19, 2022 09:34 AM Reporting Lab: [facility] [address] Performing Lab: [facility] [address] [place] [facility] COMPREHE NSIVE METABOLI C PANEL+MG GLUCOSE [...] Jul 19, 2022 09:34 AM Reporting Lab: [facility] [address] Performing Lab: [place] [phone] [facility] COMPREHE NSIVE METABOLI C PANEL+MG SODIUM [...] Jul 19, 2022 09:34 AM Reporting Lab: [facility] [address] Performing Lab: [facility] [address] [facility] COMPREHE NSIVE METABOLI C PANEL+MG POTASSIUM [...] Jul 19, 2022 09:34 AM Reporting Lab: [facility] [address] Performing Lab: [facility] [address] [facility] IS [facility] COMPREHE NSIVE METABOLI C PANEL+MG CHLORIDE [...] Jul 19, 2022 09:34 AM Reporting Lab: [facility] [address] Performing Lab: [facility] [address] [facility] COMPREHE NSIVE METABOLI C PANEL+MG CARBON [...] Jul 19, 2022 09:34 AM Reporting Lab: [facility] [address] Performing Lab: [facility] [address] [facility] COMPREHE NSIVE METABOLI C PANEL+MG CALCIUM [...] Jul 19, 2022 09:34 AM Reporting Lab: [facility] [address] Performing Lab: [facility] [address] [facility] COMPREHE NSIVE METABOLI C PANEL+MG PROTEIN [...] Jul 19, 2022 09:34 AM Reporting Lab: [facility] [address] Performing Lab: [facility] [address] [facility] COMPREHE NSIVE METABOLI C PANEL+MG ALBUMIN [...] Jul 19, 2022 09:34 AM Reporting Lab: [facility] [address] Performing Lab: [facility] [address] [place] [facility] COMPREHE NSIVE METABOLI C PANEL+MG [...] Jul 19, 2022 09:34 AM Reporting Lab: [facility] [address] Performing Lab: [facility] [address] [facility] COMPREHE NSIVE METABOLI C PANEL+MG MAGNESIUM [...] Jul 19, 2022 09:34 AM Reporting Lab: [facility] [address] Performing Lab: [facility] [address] [place] [facility] COMPREHE NSIVE METABOLI C PANEL+MG ANION [...] Jul 19, 2022 09:34 AM Reporting Lab: [facility] [address] Performing Lab: [facility] [address] [facility] COMPREHE NSIVE METABOLI C PANEL+MG ALKALINE PHOSPHATAS E [ENZYMATIC ACTIVITY/V OLUME] IN SERUM OR PLASMA 110 U/L 40 - 150 12/31 Specimen Type: PLASMA Comment: Elevated triglycerid e result from a non-fasting specimen should be interpreted with caution. A fasting panel is recommended for accurate triglycerid es when trigs are >200 from a non-fasting specimen. Ordering Provider: JAKUB ARZA Report Released Date/Time: Jul 19, 2022 09:34 AM Reporting Lab: [facility] [address] Performing Lab: [facility] [address] [facility] COMPREHE NSIVE METABOLI C PANEL+MG ALANINE [...] Jul 19, 2022 09:34 AM Reporting Lab: [facility] [address] Performing Lab: [facility] [address] [place] [facility] COMPREHE NSIVE METABOLI C PANEL+MG [...] Jul 19, 2022 09:34 AM Reporting Lab: [facility] [address] Performing Lab: [facility] [address] [facility] COMPREHE NSIVE METABOLI C PANEL+MG GLOMERULAR [...] Jul 19, 2022 09:34 AM Reporting Lab: [facility] [address] Performing Lab: [facility] [address] [facility] CBC & DIFF LEUKOCYTES [#/VOLUME] IN BLOOD BY AUTOMATED COUNT 13.98 10*3/uL 4.0 - 11.0 12/31 H Specimen Type: BLOOD Comment: Manual Differentia l Performed Ordering Provider: JAKUB RAZA Report Released Date/Time: Jul 18, 2022 03:26 PM Reporting Lab: [facility] [address] Performing Lab: [facility] [address] [facility] CBC & DIFF ERYTHROCYT ES [#/VOLUME] IN BLOOD BY AUTOMATED COUNT 4.29 10*6/uL 4.0 - 5.4 12/31 Specimen Type: BLOOD Comment: Manual Differentia l Performed Ordering Provider: JAKUB RAZA Report Released Date/Time: Jul 18, 2022 03:26 PM Reporting Lab: [facility] [address] Performing Lab: [facility] [address] [facility] CBC & DIFF HEMOGLOBIN [MASS/VOLU ME] IN BLOOD 14.0 g/dL 11.5 - 16 12/31 Specimen Type: BLOOD Comment: Manual Differentia l Performed Ordering Provider: JAKUB RAZA Report Released Date/Time: Jul 18, 2022 03:26 PM Reporting Lab: [facility] [address] Performing Lab: [facility] [address] [place] [facility] CBC & DIFF HEMATOCRIT [VOLUME FRACTION] OF BLOOD BY AUTOMATED COUNT 40.2 34.5 - 48 12/31 Specimen Type: BLOOD Comment: Manual Differentia l Performed Ordering Provider: JAKUB RAZA Report Released Date/Time: Jul 18, 2022 03:26 PM Reporting Lab: [facility] [address] Performing Lab: [facility] [address] [place] [facility] CBC & DIFF MCV [ENTITIC VOLUME] BY AUTOMATED COUNT 93.7 fL 80 - 100 12/31 Specimen Type: BLOOD Comment: Manual Differentia l Performed Ordering Provider: JAKUB RAZA Report Released Date/Time: Jul 18, 2022 03:26 PM Reporting Lab: [facility] [address] Performing Lab: [facility] [address] [place] [facility] CBC & DIFF MCH [ENTITIC MASS] BY AUTOMATED COUNT 32.6 pg 27 - 33 12/31 Specimen Type: BLOOD Comment: Manual Differentia l Performed Ordering Provider: JAKUB RAZA Report Released Date/Time: Jul 18, 2022 03:26 PM Reporting Lab: [facility] [address] Performing Lab: [facility] [address] [place] [facility] CBC & DIFF MCHC [MASS/VOLU ME] BY AUTOMATED COUNT 34.8 g/dL 32.0 - 37.5 12/31 Specimen Type: BLOOD Comment: Manual Differentia l Performed Ordering Provider: JAKUB RAZA Report Released Date/Time: Jul 18, 2022 03:26 PM Reporting Lab: [facility] [address] Performing Lab: [facility] [address] [place] [facility] CBC & DIFF PLATELETS [#/VOLUME] IN BLOOD BY AUTOMATED COUNT 361 10*3/uL 150 - 400 12/31 Specimen Type: BLOOD Comment: Manual Differentia l Performed Ordering Provider: LUZ MARINA,SOP HIA A Report Released Date/Time: Jul 18, 2022 03:26 PM Reporting Lab: [facility] [address] Performing Lab: [facility] [address] [place] [facility] CBC & DIFF PLATELET MEAN VOLUME [ENTITIC VOLUME] IN BLOOD BY AUTOMATED COUNT 8.8 fL 7.4 - 10.4 12/31 Specimen Type: BLOOD Comment: Manual Differentia l Performed Ordering Provider: JAKUB RAZA Report Released Date/Time: Jul 18, 2022 03:26 PM Reporting Lab: [facility] [address] Performing Lab: [facility] [address] [place] [facility] CBC & DIFF NEUTROPHIL S/100 LEUKOCYTES IN BLOOD BY MANUAL COUNT 59.9 12/31 Specimen Type: BLOOD Comment: Manual Differentia l Performed Ordering Provider: JAKUB RAZA Report Released Date/Time: Jul 18, 2022 03:26 PM Reporting Lab: [facility] [address] Performing Lab: [facility] [address] [place] [facility] CBC & DIFF LYMPHOCYTE S/100 LEUKOCYTES IN BLOOD BY MANUAL COUNT 31.5 12/31 Specimen Type: BLOOD Comment: Manual Differentia l Performed Ordering Provider: JAKUB RAZA Report Released Date/Time: Jul 18, 2022 03:26 PM Reporting Lab: [facility] [address] Performing Lab: [facility] [address] [place] [facility] CBC & DIFF ERYTHROCYT E DISTRIBUTI ON WIDTH [RATIO] BY AUTOMATED COUNT 12.5 11.5 - 14.5 12/31 Specimen Type: BLOOD Comment: Manual Differentia l Performed Ordering Provider: JAKUB RAZA Report Released Date/Time: Jul 18, 2022 03:26 PM Reporting Lab: [facility] [address] Performing Lab: [facility] [address] [place] [facility] CBC & DIFF MONOCYTES/ 100 LEUKOCYTES IN BLOOD BY AUTOMATED COUNT 4.1 12/31 Specimen Type: BLOOD Comment: Manual Differentia l Performed Ordering Provider: JAKUB RAZA Report Released Date/Time: Jul 18, 2022 03:26 PM Reporting Lab: [facility] [address] Performing Lab: [facility] [address] [place] [facility] CBC & DIFF EOSINOPHIL S/100 LEUKOCYTES IN BLOOD BY AUTOMATED COUNT 3.0 12/31 Specimen Type: BLOOD Comment: Manual Differentia l Performed Ordering Provider: JAKUB RAZA Report Released Date/Time: Jul 18, 2022 03:26 PM Reporting Lab: [facility] [address] Performing Lab: [facility] [address] [place] [facility] CBC & DIFF BASOPHILS/ 100 LEUKOCYTES IN BLOOD BY MANUAL COUNT 1.0 12/31 Specimen Type: BLOOD Comment: Manual Differentia l Performed Ordering Provider: JAKUB RAZA Report Released Date/Time: Jul 18, 2022 03:26 PM Reporting Lab: [facility] [address] Performing Lab: [facility] [address] [place] [facility] CBC & DIFF MYELOCYTES /100 LEUKOCYTES IN BLOOD BY MANUAL COUNT 0.5 12/31 Specimen Type: BLOOD Comment: Manual Differentia l Performed Ordering Provider: JAKUB RAZA Report Released Date/Time: Jul 18, 2022 03:26 PM Reporting Lab: [facility] [address] Performing Lab: [facility] [address] [place] [facility] CBC & DIFF LYMPHOCYTE S [#/VOLUME] IN BLOOD BY AUTOMATED COUNT 4.40 10*3/uL 1.0 - 4.0 12/31 H Specimen Type: BLOOD Comment: Manual Differentia l Performed Ordering Provider: JAKUB RAZA Report Released Date/Time: Jul 18, 2022 03:26 PM Reporting Lab: [facility] [address] Performing Lab: [facility] [address] [place] [facility] CBC & DIFF MONOCYTES [#/VOLUME] IN BLOOD BY AUTOMATED COUNT 0.57 10*3/uL 0.1 - 1.0 10/03 /2023 Specimen Type: BLOOD Comment: Manual Differentia l Performed Ordering Provider: JAKUB RAZA Report Released Date/Time: Jul 18, 2022 03:26 PM Reporting Lab: [facility] [address] Performing Lab: [facility] [address] [place] [facility] CBC & DIFF NEUTROPHIL S [#/VOLUME] IN BLOOD BY AUTOMATED COUNT 8.37 10*3/uL 2.0 - 7.7 12/31 H Specimen Type: BLOOD Comment: Manual Differentia l Performed Ordering Provider: JAKUB RAZA Report Released Date/Time: Jul 18, 2022 03:26 PM Reporting Lab: [facility] [address] Performing Lab: [facility] [address] [place] [facility] CBC & DIFF EOSINOPHIL S [#/VOLUME] IN BLOOD BY AUTOMATED COUNT 0.42 10*3/uL 0 - 0.5 12/31 Specimen Type: BLOOD Comment: Manual Differentia l Performed Ordering Provider: JAKUB RAZA Report Released Date/Time: Jul 18, 2022 03:26 PM Reporting Lab: [facility] [address] Performing Lab: [facility] [address] [place] [facility] CBC & DIFF BASOPHILS [#/VOLUME] IN BLOOD BY AUTOMATED COUNT 0.14 10*3/uL 0 - 0.2 12/31 Specimen Type: BLOOD Comment: Manual Differentia l Performed Ordering Provider: JAKUB RAZA Report Released Date/Time: Jul 18, 2022 03:26 PM Reporting Lab: [facility] [id number] Performing Lab: [facility] [address] [place] [facility] CBC & DIFF MYELOCYTES [#/VOLUME] IN BLOOD BY MANUAL COUNT 0.07 10*3/uL 12/31 Specimen Type: BLOOD Comment: Manual Differentia l Performed Ordering Provider: JAKUB RAZA Report Released Date/Time: Jul 18, 2022 03:26 PM Reporting Lab: [facility] [id number] Performing Lab: [facility] [address] [place] [facility] CBC & DIFF ERYTHROCYT E MORPHOLOGY FINDING [IDENTIFIE R] IN BLOOD NORMOCYT IC, NORMOCHR OMIC 12/31 Specimen Type: BLOOD Comment: Janak linton Performed Ordering Provider: JAKUB RAZA Report Released Date/Time: Jul 18, 2022 03:26 PM Reporting Lab: [facility] [address] Performing Lab: [facility] [address] [facility] HIV AG/AB SCREEN HIV 1+2 AB+HIV1 P24 AG [PRESENCE] IN SERUM OR PLASMA BY IMMUNOASSA Y NEGATIVE 12/31 Specimen Type: SERUM No comment entered. Ordering Provider: Angy GUERRERO Report Released Date/Time: Dec 31, 2022 01:23 PM Reporting Lab: [facility] [address] Performing Lab: [place] [address] [facility] ANTI-HEP C(EIA) HEPATITIS C VIRUS AB [PRESENCE] IN SERUM NEGATIVE 12/31 Specimen Type: SERUM No comment entered. Ordering Provider: Angy GUERRERO Report Released Date/Time: Dec 31, 2022 01:23 PM Reporting Lab: [facility] [address] Performing Lab: [facility] [address] [place] [facility] SYPHILIS ANTIBODY SYPHILIS SCREEN TEST STATUS CPHS NEGATIVE 12/31 Specimen Type: SERUM No comment entered. Ordering Provider: Angy GUERRERO Report Released Date/Time: Dec 31, 2022 01:23 PM Reporting Lab: [facility] [address] Performing Lab: [facility] [address] [place] [facility] PROLACTI N PROLACTIN [MASS/VOLU ME] IN SERUM OR PLASMA BY IMMUNOASSA Y 2.51 ng/mL <26.53 - 26.53 10/29 Specimen Type: PLASMA No comment entered. Ordering Provider: Angy GUERRERO Report Released Date/Time: Oct 25, 2022 04:35 PM Reporting Lab: [facility] [address] Performing Lab: [facility] [address] [place] Encounters Combined list of: 1) Encounters from Department of Veterans Affairs facilities going back up to thelast 18 months. 2) Encounters from the Department of Defense facilities going back up to 280 months. Location Location Details Encounter Type Encounter Number Reason For Visit Attending Provider ADM Date DC Date Status Disposition Source [employer](IEP Hearing Conservat ion) OUTPATIENT [id number] LESLY CHRISTENSEN 04/09 Released w/o Limitations [employer](I EP Hearing Conserv ation) [employer](RE C Post Immunizat ion) OUTPATIENT [id number] IET PPD JOANEN TABARES 04/10 Released w/o Limitations [employer](M AHC Post Immuniz ation) [employer](RE C Post Immunizat ion) OUTPATIENT [id number] IET IMMUNIZ ATIONS LISSETT VERMA 04/13 Released w/o Limitations [employer](M AHC Post Immuniz ation) [employer](TMC Ambulator y) OUTPATIENT [id number] rtd MARCY ESPINOZA 06/05 Released with Work/Duty Limitations [employer](T MC Ambulat ory) [employer]([facility] Ambulator y) OUTPATIENT [id number] SAM MCKEON 06/14 Released with Work/Duty Limitations [employer](T MC Ambulat ory) [facility]ly [facility]) OUTPATIENT [id number] SELF CARE CLASS [place] 06/30 Released w/o Limitations [facility]) [facility](Family Practice Combined) OUTPATIENT [id number] right knee pain for 5 days DEJA GARCIA 07/12 Released with Work/Duty Limitations [facility](Fami ly Practic e Combine d) [facility]) OUTPATIENT [id number] l HIP BACK PAIN BRETT RIVAS Leola 07/23 Released with Work/Duty Limitations [facility](Fami ly Practic e Combine d) [facility]) OUTPATIENT [id number] L hip pain BANDAR JASMINE Henrik 08/12 Released with Work/Duty Limitations [facility](Fami ly Practic e Combine d) [facility]) OUTPATIENT [id number] broken nose DEJA GARCIA 08/16 Released with Work/Duty Limitations [facility](Fami ly Practic e Combine d) [facility] [place](Hear ing Conservat ion SRP) OUTPATIENT [id number] in-proc essing/ pcs HALINAAIME Sherine 09/20 Released w/o Limitations [facility] [place](He aring Conserv ation [facility]) [facility] [place]) OUTPATIENT [id number] Inproce gabriellang ROM CORADO 09/21 Released w/o Limitations [facility] [place]([facility]) [facility] [place]([facility]) OUTPATIENT [id number] GERALD Galeano 10/13 Released with Work/Duty Limitations [facility] [place]([facility]) [facility] [place](Immi gration Phys Exam) OUTPATIENT [id number] possibl e sinus infecti on [facility] 11/03 Released w/o Limitations [facility] [place](Im migrati on Phys Exam) [facility] [place](Immi gration Phys Exam) OUTPATIENT [id number] back pain/wr ist pain possibl e referra l [facility] 11/16 Released with Work/Duty Limitations [facility] [place](Im migrati on Phys Exam) [facility] [place](Occu pational Therapy) OUTPATIENT [id number] joint pain, localiz ed in the wrist CLARY NDIAYE 12/07 Released w/o Limitations [facility] [place](Oc cupatio nal Therapy ) [facility] [place](Immi gration Phys Exam) OUTPATIENT [id number] crack on left foot [facility] 12/24 Released w/o Limitations [facility] [place](Im migrati on Phys Exam) [facility] [place](Immi gration Phys Exam) OUTPATIENT [id number] asthma evaluat ion SANDRAJENNIFERGERALD W 03/16 Released w/o Limitations [facility] [place](Im migrati on Phys Exam) [facility] [place](Immi gration Phys Exam) OUTPATIENT [id number] back pain JENNIFER FLORESREY W 06/01 Released with Work/Duty Limitations [facility] [place](Im migrati on Phys Exam) [facility] [place](Immi gration Phys Exam) OUTPATIENT [id number] follow up SANDRA GERALD W 06/28 Released with Work/Duty Limitations [facility] [place](Im migrati on Phys Exam) [facility] [place](Phys ical Therapy Tran) OUTPATIENT [id number] VICTOR HUGO RODRIGUEZ 06/29 Released with Work/Duty Limitations [facility] [place](Ph ysical Therapy Tran ) [facility] [place](Phys ical Therapy Tran) OUTPATIENT [id number] MARTINSJEMMA BLANTON III 07/06 Released w/o Limitations [facility] [place](Ph ysical Therapy Tran ) [facility] [place](Immi gration Phys Exam) OUTPATIENT [id number] pap CANDACE CORDOVA 07/12 Released w/o Limitations [facility] [place](Im migrati on Phys Exam) [facility] [place](Phys ical Therapy Tran) OUTPATIENT [id number] MARTINSJEMMA PINA III 07/13 Released w/o Limitations [facility] [place](Ph ysical Therapy Tran ) [facility] [place](Phys ical Therapy Tran) OUTPATIENT [id number] MARTINSQUIN [facility] 07/15 Released w/o Limitations [facility] [place](Ph ysical Therapy Tran ) [facility] [place](Immi gration Phys Exam) TELE CONSULT [id number] lab result CANDACE CORDOVA 07/15 [facility] [place](Im migrati on Phys Exam) [facility] [place](Epid emiology) TELE CONSULT [id number] CT (+) JAMEL DE LA O 07/19 [facility] [place](Ep idemiol ogy) [facility] [place](Epid emiology) OUTPATIENT [id number] ACUTE/P T JAMEL DE LA O 07/25 Released w/o Limitations [facility] [place](Ep idemiol ogy) [facility] [place](Immi gration Phys Exam) OUTPATIENT [id number] lower back/po ssible ortho referra GERALD [place] 08/10 Released with Work/Duty Limitations [facility] [place](Im migrati on Phys Exam) [facility] [place](Phys ical Medicine [place]) OUTPATIENT [id number] 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 DEMETRIUS LAWTON 09/02 Released w/o Limitations [facility] [place](Ph ysical Medicin e [place]) [facility] [place](Immi gration Phys Exam) OUTPATIENT [id number] F/U MRI GERALD FLORES 09/20 Released with Work/Duty Limitations [facility] [place](Im migrati on Phys Exam) [facility] [place](Immi gration Phys Exam) OUTPATIENT [id number] back pain CHAVO, MARIAM Linton 10/31 Released w/o Limitations [facility] [place](Im migrati on Phys Exam) [facility] [place](Orth opedics Spine) OUTPATIENT [id number] 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, first spine per referra MIGNON Saleh 11/15 Released with Work/Duty Limitations [facility] [place](Or thopedi cs Spine) [facility] [place](Eduardo ology/Hea ring Conservat ion) OUTPATIENT [id number] Periodi STEVAN Durán 11/18 Released w/o Limitations [facility] [place](Au diology /Hearin g Conserv ation) [facility] [place](Phys ical Therapy) OUTPATIENT [id number] MEB ROM for L/S Spine KR, MAYA BROWN 11/21 Released w/o Limitations [facility] [place](Ph ysical Therapy ) [facility] [place](Opto metry [facility]) OUTPATIENT [id number] med physicRASHAD Kurtz 11/21 Released w/o Limitations [facility] [place](Op tometry [facility]) [facility] [place](Immi gration Phys Exam) OUTPATIENT [id number] phase II pe (meb) ADRIÁN KHAN 11/25 Released w/o Limitations [facility] [place](Im migrati on Phys Exam) [facility] [place](Immi gration Phys Exam) OUTPATIENT [id number] deviate d nasal septum CANDACE CORDOVA 12/16 Released w/o Limitations [facility] [place](Im migrati on Phys Exam) [facility] [place](Immi gration Phys Exam) OUTPATIENT [id number] knee pain (deplet ed reflexe s) BANDAR FREED 01/19 Released w/o Limitations [facility] [place](Im migrati on Phys Exam) [facility] [place](Immi gration Phys Exam) OUTPATIENT [id number] referra l for sleep study SHANNAN LOPEZ 01/20 Released w/o Limitations [facility] [place](Im migrati on Phys Exam) [facility] Abraham Angelo AK([employer] Specialist al Medicine) TELE CONSULT [id number] Per TDRL require ments SONIA SAEZ 03/15 [facility] [place](Inte rnal Medicin e) [facility] M[facility]) OUTPATIENT [id number] TDRL SONIA SAEZ 04/10 Released w/o Limitations [facility] [place](AMH M01D Cats) [facility] Abraham Angelo [place](P T Clinic) OUTPATIENT [id number] ROM FOR TDRL ROM ARIZMENDI 04/10 Released w/o Limitations [facility] Abraham Angelo [place](P T Clinic) [facility] HC PRO PHONE CALL 5-10 MIN [id number] Diagnos is: ICD-10- CM Z13.89 Encount er for screeni ng for other disorde r
RENO QUACH 08/[address] [facility] Outpatient Encounter [id number] 08/20 [place] [facility] OFF[facility] O/P EST HI 40-54 MIN [id number] Diagnos is: ICD-10- CM R53.82 Chronic fatigue , unspeci fied
LEOPOLDO GUERRERO L 09/03 [place] [facility] Outpatient Encounter [id number] 09/04 [place] [facility] NEUROMUSCU LAR REEDUCATIO N [id number] Diagnos is: ICD-10- CM M25.552 Pain in left hip<br/ > SANTANA STEELE L 09/04 [facility] OFF[facility] O/P NEW LOW 30-44 MIN [id number] Diagnos is: ICD-10- CM H52.03 Hyperme tropia, bilater al
YUAN DAVIS M 09/18 [facility] Outpatient Encounter [id number] 09/27 [facility] OFFICE O/P NEW MOD 45-59 MIN [id number] Diagnos is: ICD-10- CM K58.2 Mixed irritab le bowel syndrom e
Sherine HOLM ISAAC R 09/27 [facility] Outpatient Encounter [id number] 10/08 [facility] PSYCH DIAG EVAL W/MED SRVCS [id number] Diagnos is: ICD-10- CM F41.9 Anxiety disorde r, unspeci fied
COUNCIL,AB IGAIL E 10/09 [place] [facility] Outpatient [facility]counter [id number] 10/14 [place] [facility] [place] [facility] Outpatient Encounter [id number] 10/15 [place] [facility] [place] [facility] SELF CARE MNGMENT TRAINING [id number] Diagnos is: ICD-10- CM M25.552 Pain in left hip<br/ > SANTANA STEELE L 10/16 [facility] [place] [facility] OFFICE O/P EST MOD 30-39 MIN [id number] Diagnos is: ICD-10- CM R09.81 Nasal congest ion<br/ > ALBERTO ESTRADA 10/16 [facility] [place] [facility] Outpatient Encounter [id number] 10/16 [facility] OFF[facility] O/P EST LOW 20-29 MIN [id number] Diagnos is: ICD-10- CM L70.8 Other acne
CESAR LEOPOLDO L 10/25 [facility] [place] [facility] Outpatient Encounter [id number] 10/28 [facility] [place] [facility] Outpatient [facility]counter [id number] 11/13 [facility] [place] [facility] Outpatient Encounter [id number] 11/18 [facility] [place] [facility] MANUAL THERAPY 1/> [place] [id number] Diagnos is: ICD-10- CM M25.552 Pain in left hip<br/ > SANTANA STEELE L 11/20 [facility] OFFICE O/P EST HI 40-54 MIN [id number] Diagnos is: ICD-10- CM F41.9 Anxiety disorde r, unspeci fied
COUNCIL,AB IGAIL E 11/28 [facility] [place] [facility] Outpatient Encounter [id number] SHAHANA NGUYEN 12/09 [place] [facility] [place] [facility] Outpatient Encounter [id number] 12/11 [place] [facility] [place] [facility] OFF[facility] O/P EST LOW 20-29 MIN [id number] Diagnos is: ICD-10- CM R09.81 Nasal congest ion<br/ > ARDENBRIANNA MayoG 12/13 [place] [facility] [place] [facility] Outpatient Encounter [id number] 12/17 [facility] [place] [facility] MANUAL THERAPY / [place] [id number] Diagnos is: ICD-10- CM M25.552 Pain in left hip<br/ > SANTANA STEELE 12/24 [facility] [place] [facility] Outpatient Encounter [id number] 12/26 [place] [facility] [place] [facility] Outpatient Encounter [id number] 12/26 [facility] [place] [facility] OFFICE O/P EST MOD 30-39 MIN [id number] [id number] Diagnos is: ICD-10- CM E66.01 Morbid (severe ) obesity due to excess calorie s
LEOPOLDO GUERRERO 12/31 [facility] [place] [facility] Outpatient Encounter [id number] 01/01 [place] [facility] [place] [facility] Outpatient Encounter [id number] 01/16 [facility] [place] [facility] OFFICE O/P EST HI 40-54 MIN [id number] [id number] Diagnos is: ICD-10- CM F41.9 Anxiety disorde r, unspeci fied
COUNCIL,AB IGAIL E 01/16 [place] [facility] [place] [facility] Outpatient Encounter [id number] 01/30 [place] [facility] [place] [facility] Outpatient Encounter [id number] 02/04 [place] [facility] OFFICE O/P EST LOW 20-29 MIN [id number] [id number] Diagnos is: ICD-10- CM F90.0 Attn-de fct hyperac tivity disorde r, predom inatten tive type
CHINVEGA I,OSEAST A 02/12 [facility] [place] [facility] Outpatient Encounter [id number] 03/19 [place] [facility] [place] [facility] Outpatient Encounter [id number] 03/20 [place] [facility] [place] [facility] Outpatient Encounter [id number] 04/03 [place] [facility] [place] [facility] Outpatient Encounter [id number] 04/04 [place] [facility] [place] [facility] Outpatient Encounter [id number] SA RA Nata BRITT 04/07 [place] [facility] [place] [facility] Outpatient Encounter [id number] 04/08 [place] [facility] [place] [facility] Outpatient Encounter [id number] RASHID GANNONIDA A 04/08 [place] [facility] [place] [facility] Outpatient Encounter [id number] 04/[address] [place] [address] [facility] [place] [facility] Outpatient Encounter [id number] 04/23 [place] [facility] [place] [facility] Outpatient Encounter [id number] [id number] 04/30 [place] [facility] [place] [facility] Outpatient Encounter [id number] 05/07 [place] [facility] [place] [facility] Outpatient Encounter [id number] 05/28 [place] [facility] [place] [facility] Outpatient Encounter [id number] 05/29 [place] [facility] [place] [facility] OFF/OP CNSLTJ NEW/EST MOD 40 [id number] Diagnos is: ICD-10- CM M54.50 Low back pain, unspeci fied
AUSTIN ISABEL 06/02 [facility] QNHP OL DIG ASSMT&MGMT 11-20 [id number] Diagnos is: ICD-10- CM E66.01 Morbid (severe ) obesity due to excess calorie s
MARIA LUZ GATES 06/03 [place] [facility] [place] [facility] Outpatient Encounter [id number] GOGO TAVERAS 06/04 [place] [facility] [place] [facility] Outpatient Encounter [id number] 06/09 [place] [facility] [place] [facility] Outpatient Encounter [id number] 06/10 [place] [facility] [place] [facility] Outpatient [facility]counter [id number] 06/23 [place] [facility] [place] [facility] OFFICE O/P EST MOD 30 MIN [id number] [id number] Diagnos is: ICD-10- CM J34.2 Deviate d nasal septum< br/> VAL PIERCE 06/25 [place] [facility] [place] [facility] Outpatient Encounter [id number] 06/29 [place] [facility] [place] [facility] Outpatient Encounter [id number] 07/17 [place] [facility] [place] [facility] Outpatient Encounter [id number] 07/[address] [place] [address] [facility] [place] [facility] Outpatient Encounter [id number] SA RA Nata BRITT 07/[address] [place] [address] [facility] [place] [facility] Outpatient Encounter [id number] 07/[address] [place] [address] [facility] [place] [facility] Outpatient Encounter [id number] 07/21 [place] [facility] [place] [facility] HC PRO PHONE CALL 11-20 MIN [id number] [id number] Diagnos is: ICD-10- CM O09.521 Supervi ozzie of elderly multigr avida, first trimest er
STEVE SOLOMON 07/21 [place] [facility] [place] [facility] Outpatient Encounter [id number] 07/21 [place] [facility] [facility] [place] [facility] Outpatient Encounter [id number] Kajal MCDONALD 07/22 [place] [facility] [place] [facility] Outpatient Encounter [id number] 07/22 [place] [facility] [facility] [place] [facility] Outpatient Encounter [id number] 08/[address] [place] [address] [facility] [place] [facility] Outpatient Encounter [id number] 08/11 [place] [facility] [place] [facility] HC PRO PHONE CALL 5-10 MIN [id number] [id number] Diagnos is: ICD-10- CM O09.521 Supervi ozzie of elderly multigr avida, first trimest er
STEVE SOLOMON 09/04 [place] [facility] [place] [facility] HC PRO PHONE CALL 5-10 MIN [id number] Diagnos is: ICD-10- CM O09.521 Supervi ozzie of elderly multigr avida, first trimest er
SOLOMON, STEVE K 09/07 [place] [facility] [place] [facility] Outpatient Encounter [id number] 09/23 [place] [facility] [place] [facility] Outpatient Encounter [id number] 09/23 [place] [facility] [facility] [place] [facility] HC PRO PHONE CALL 5-10 MIN [id number] [id number] Diagnos is: ICD-10- CM O09.522 Supervi ozzie of elderly multigr avida, second trimest er
SOLOMON, STEVE K 10/28 [place] [facility] [place] [facility] Outpatient Encounter [id number] 10/29 [place] [facility] [place] [facility] HC PRO PHONE CALL 5-10 MIN [id number] Diagnos is: ICD-10- CM O09.523 Supervi ozzie of elderly multigr avida, third trimest er
SOLOMON, STEVE K 01/05 [place] [facility] [place] [facility] HC PRO PHONE CALL 5-10 MIN [id number] Diagnos is: ICD-10- CM O09.523 Supervi ozzie of elderly multigr avida, third trimest er
SOLOMON, STEVE K 01/13 [place] [facility] Procedures Combined list of: 1) Procedures from Department of Veterans Affairs facilities going back up to thelast 18 months, not all VA non-surgical procedures are included; 2) All procedures from the Department of Defense facilities. Procedure Procedure Type Code Date Perfomer Comments Yana e Range Of Motion Evaluation Of Extremity Range Of Motion Evaluation Of Extremity 88161 2 ROM SALAZAR [facility] Psychotherapy Individual Approximately 30 Minutes Psychotherapy Individual Approximately 30 Minutes 28803 9 MANSOOR TOLBERT Range Of Motion Evaluation Of Extremity Range Of Motion Evaluation Of Extremity 45820 9 MAYA BECKMAN [facility] Audiometry Group Testing Audiometry Group Testing 28392 9 STEVAN TAYLOR [facility] Modalities Heat Hot Packs Modalities Heat Hot Packs 48921 9 [facility] Physical Medicine - Group Physical Therapy Se ion Physical Medicine - Group Physical Therapy Session 51060 9 [facility] Modalities Heat Hot Packs Modalities Heat Hot Packs 49375 9 [facility] Physical Medicine - Group Physical Therapy Se ion Physical Medicine - Group Physical Therapy Session 77916 9 [facility] Screening papanicolaou smear; obtaining, preparing and conveyance of cervical or vaginal smear to laboratory 9 CANDACE CORDOVA [facility] Clinical Social Work Individual Outpatient Counseling 45 Minutes Clinical Social Work Individual Outpatient Counseling 45 Minutes [id number] 9 CASSIDY MONTES [facility] Physical Therapy: ___ Se ion Segments, 15 Minutes Each Physical Therapy: ___ Session Segments, 15 Minutes Each [id number] 9 [facility] Modalities Heat Hot Packs Modalities Heat Hot Packs 39662 9 [facility] Physical Medicine - Group Physical Therapy Se ion Physical Medicine - Group Physical Therapy Session 13577 9 [facility] Patient Counseling Medical Management Individual Patient Patient Counseling Medical Management Individual Patient [id number] 9 GERALD FLORES [facility] A e /Interv Discharge Meds Reconciled W/ Current Meds List 9 GERALD FLORES [facility] Physical Therapy Service Evaluation Physical Therapy Service Evaluation [id number] 9 VICTOR HUGO LAWRENCE [facility] Phys Therapy Education Self Care Training - Per 15 Minutes Phys Therapy Education Self Care Training - Per 15 Minutes [id number] 9 VICTOR HUGO LAWRENCE [facility] Psychiatric Diagnostic Evaluation Comprehensive Examination Psychiatric Diagnostic Evaluation Comprehensive Examination [id number] 9 CASSIDY MONTES [facility] Patient Training And Self-Care Skills Patient Training And Self-Care Skills [id number] GERALD FLORES [facility] Patient Counseling Medical Management Individual Patient Patient Counseling Medical Management Individual Patient [id number] GERALD FLORES A e /Interv Discharge Meds Reconciled W/ Current Meds List 9 GERALD FLORES Patient Counseling Medical Management Individual Patient Patient Counseling Medical Management Individual Patient [id number] GERALD FLORES A e /Interv Discharge Meds Reconciled W/ Current Meds List 8 GERALD FLORES A isted Exercises For ROM Assisted Exercises For ROM 57590 8 CLARY NDIAYE Occupational Therapy Evaluation Occupational Therapy Evaluation 50027 8 CLARY NDIAYE Oropharynx Culture Streptococcus Group A Beta Hemolytic Oropharynx Culture Streptococcus Group A Beta Hemolytic 12485 8 GERALD FLORES Physician Supervised Injection Intramuscular Antibiotic Physician Supervised Injection Intramuscular Antibiotic 39999 8 GERALD FLORES Audiometry Group Testing Audiometry Group Testing 34383 8 AIME MEADE Physician Supervised Services Provision Of Educational Supplies Physician Supervised Services Provision Of Educational Supplies 92638 8 LOS HART Threshold Audiogram (Pure Tone) Threshold Audiogram (Pure Tone) 40339 8 LESLY CHRISTENSEN Audiometry Group Testing Audiometry Group Testing 06038 8 LESLY CHRISTENSEN Special Physician Services Analysis Of Computerized Data Special Physician Services Analysis Of Computerized Data 93848 8 LESLY CHRISTENSEN Physician Supervised Services Provision Of Special Supplies Physician Supervised Services Provision Of Special Supplies 44381 8 LESLY CHRISTENSEN Physician Supervised Group Educational Services 8 LESLY CHRISTENSEN Ear mold/insert, not disposable, any type 8 LESLY CHRISTENSEN Ear Protector Attenuation Measurements Ear Protector Attenuation Measurements 97997 8 LESLY CHRISTENSEN Skin Test Anergy Tuberculin Intradermal Skin Test Anergy Tuberculin Intradermal 83685 8 JOANNE TABARES Hepatitis A Vaccine Adult Dosage (Intramuscular Use) Hepatitis A Vaccine Adult Dosage (Intramuscular Use) 73721 8 GUSTAVO VELOZ [facility] Vaccines Viral Polio, Inactivated Vaccines Viral Polio, Inactivated 12868 8 GUSTAVO VELOZ [facility] Meningococcal Polysaccharide Vaccine Meningococcal Polysaccharide Vaccine 68974 8 GUSTAVO VELOZ [facility] Immunization Administration By Injection, Each Additional Vaccine 8 GUSTAVO VELOZ [facility] Td Vaccine Td Vaccine 73220 8 GUSTAVO VELOZ [facility] Immunization Administration By Injection, One Vaccine Immunization Administration By Injection, One Vaccine 06495 8 GUSTAVO VELOZ [facility] Social History Combined list of available smoking, tobacco, and other social history from Department of Defense and [facility] facilities. Social History Type Response Date Comment Sourc e Tobacco [facility] status [facility] 5 YRS 07/22/2023 [facility] History of tobacco use [facility] TOBAC[facility] SM OKES DOES NOT 07/22/2023 [facility] History of tobacco [facility]/06/2022 [facility] History of tobacco use PREVIOUS SMOKER 11/21/2021 [facility] History of tobacco [facility]/06/2021 [facility] History of tobacco [facility] 11/03/2020 [facility] History of tobacco [facility] 30 MIN OF WAKEUP 05/06/2018 [facility] This section is an empty social history section. [facility] Plan of Care List of future care activities from Department of [facility] facilities. Additional future care activities may be listed in the Assessment and Plan section. Date/Time Care Activity Care Activity Detail Facili ty 04/13/2024 AMBULATORY - NONE AMBULATORY - NONE [facility] 02/18/2024 Laboratory - Furniture Upholsterer ry Order CBC and DIFF BLOOD SP ONCE [facility] 02/18/2024 Laboratory - Furniture Upholsterer ry Order PROTHROMBIN TIME/INR PLASMA SP ONCE [facility] 02/18/2024 Laboratory - Furniture Upholsterer ry Order ACT PART THROMBO TIME PLASMA SP ONCE [facility] 02/18/2024 Laboratory - Furniture Upholsterer ry Order HEMOGLOBIN A1C BLOOD SP ONCE [facility] 02/18/2024 Laboratory - Furniture Upholsterer ry Order BASIC METABOLIC PANEL+MG PLASMA SP ONCE [facility] 03/04/2024 Laboratory - Furniture Upholsterer ry Order HCG, QUAL URINE SP ONCE [facility]
--- OUTSIDE RECORDS SUMMARY | 2024-02-22 03:28 | XMS_ITS | Clinical Summary ---
Author Organization [facility] Address [address] [place] [address] Care Team Providers Care Golf Course Mechanic Name Role Phone Unavailable Primary Care Provider Unavailabl e Source Comments Patient records contain information from all sites at [facility]. For routine questions regarding patient records, call [phone] during business hours, M-F 8:00 AM - 5:00 PM Central Time. Record requests for emergency care only can be directed to [phone] at any time.[facility] Allergies No known active allergies Medications [...] B-12 ORAL) Take by mouth. Active prenat.vits,kandy, shc-zock-yvmks tablet Take 1 tablet by mouth daily. 07/17/2023 Active Active Problems Patient Care Coordination No te Formatting of this note migh t be different from the original. Boyfrienmary Ulloa. His first baby! She is moving [facility] during the (likely summertime) Problem Noted Date Diagnosed Date Complication Morbid Obesity Body Mass Index Greater Than 40 08/13/2023 Body Mass Index 50.0 To 59.9 Adult 08/13/2023 Elderly Multigravida Greater Than 35 Y ear Old 08/13/2023 Overview (08/13/2023): Desires NIP Panorama, scheduled 08/20/23 Preexisting Hypertension 08/13/2023 Overview (08/13/2023): Baseline preeclampsia labs collected at [facility] OB Will begin 81 mg ASA at 12 weeks Depression Anxiety 08/13/2023 High Risk 08/13/2023 Overview (08/13/2023): BMI >50 Chronic HTN Elderly multigravida Anxiety/depression We discussed advanced level USSEBASTIAN consult. She is very likely moving to [facility], and will be transferring her care [...] drink = 0.6 oz pur e alcohol) [facility] Utilities Answer Date Recorded In the past 12 months has [employer] electric, gas, oil, or water company [...] Type Associated Problems Recent Progress Patient-Stated? Author [facility] Care Plan for Healthy Care Plan [facility] Care Plan for Healthy No Support, [facility] Nic[facility] Dependency Chronic Care Plan [facility] Care Plan for Healthy No Support, [...] S Negative Negative 08/14/2023 10:25 AM CDT [facility] Comment: Consumption of high-dose biotin supplement within 12 hours of blood collection for this test can cause false-negative results. Blood (Blood, Venous) 08/13/2023 4:52 PM CDT 08/14/2023 7:24 AM CDT us Loreta Ramirez APRN, C.N.P. LAB MICROBIOLOGY - BLO OD ORDERABLES Final Result [facility] [address] [place] [address] [facility] [address] [place] [address] * HIV-1/-2 Ag and Ab Scrn, Plasma [...] MICROBIOLOGY - BLO OD ORDERABLES Final Result [facility] [address] [place] [address], [place] ECLR [facility] in [address] [address] from Last 3 Months or Most Recently Relevant to Health Maintenance Additional Health Concerns Active Problems Noted Date Diagnosed Date [facility] Care Plan for Healthy 08/30 Insurance [facility]
--- OUTSIDE RECORDS SUMMARY | 2024-02-22 03:28 | XMS_ITS | Clinical Summary ---
Author Organization [facility] Address [place], [place] [address] Care Team Providers Care Charge Loader Name Role Phone Beata Mastersonla Primary Care Provider [phone] Allergies No known active allergies Medications Medication Sig Dispensed Refills Start Date End Date Status NIFEdipine ER (ADALAT CC) 30 mg extended-Release tablet Take 1 Tablet by mouth once daily. 07/19/2022 Active famotidine (PEPCID) 20 mg tabletIndications:Ga stroesophageal reflux disease, unspecified whether esophagitis present Take 1 Tablet (20 mg) by mouth two times daily. 60 Tablet 07/17/2023 Active Cthzkgsz-Rs-Zbe-Fe-F A tab tabletIndications:Va ginal bleeding in Take [...] 08/06/23, provider advised to discuss with her Fingal E COMMERCE DIRECTOR provider) Chronic fatigue 05/07/2016 Overview (09/09/2017): 09/09/2017: Cardiology evaluation. Benign palpitations. Vitamin D deficiency 10/30/2012 Overview (06/20/2017): VITAMIN D TOTAL Date Value Ref Range Status 06/19/2017 22.9 (L) 30.0 - 80.0 ng/mL Final 10/17/2015 30.1 30.0 - 80.0 ng/mL Final 10/29/2012 18.4 (L) 30.0 - 80.0 ng/mL Final 06/20/2017: [place] 02358 IU twice weekly x8 weeks, vit d [...] Bottle feeding. GBS - neg Guerline Jackson [[id number]] GEOVANY 12/30/2011 (05/02/11 to present) [facility] Date: 86 Age (as of 08/12/11): 21 Race/Ethnicity: Not /Not History: Estimated Date of Delivery: 12/30/11 Gestational Age: 20w0d Blood Type: O Rh Positive Patient Address Address Home Phone Email [address] [phone] [email or web address] [place] [phone] Patient Background Race/Ethnicity Marital Status Not /Not [...] safety in , and recommended care. Reviewed [facility]'s Preparing for Class Schedule. 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 Current outpatient prescriptions Medication Sig Dispense Refill acetaminophen (TYLENOL) 325 mg tablet Take by mouth every 4 hours if needed. Max acetaminophen dose: 4000mg in 24 hrs. 0 ondansetron (ZOFRAN ODT) [address] 1 tablet on the tongue every 8 hours if needed for Nausea/Vomiting. 5 tablet 0 oxyCODONE-acetaminophen, 5-325 mg, (PERCOCET) per tablet Take 1 tablet by mouth every 4 hours if needed for Pain. Max acetaminophen dose: 4000mg in 24 hrs. 20 tablet 0 Vit-Iron Fumarate-FA ( VITAMIN WITH MINERALS) 28-0.8 [...] 1 CUR Past Medical History Diagnosis Date Degeneration of thoracic intervertebral disc 04/04/2009 Past Surgical History Procedure Date No previous surgery Family History: Family History Problem Relation Age of Onset Thyroid Mother Grave's Hypertension Father Hypertension Mother Lipids Father Good Health Sister Good Health Sister Good Health Brother Social History: History Substance Use Topics Smoking status: Current Everyday Smoker -- 0.5 packs/day Types: Cigarettes Smokeless tobacco: Never Used Comment: started smoking at age 15 Alcohol Use: No RISK FACTORS Exercise Times/wk: [...] Problems06/04/2011 Genetic Referral06/04/2011 Nuchal /1st trim.screenDeclined 06/04/2011 MD Quad ScreenStill considering 06/04/2011 QuickeningValue: 2 MD [...] screen, but probably not -- Will need pxye-ah-zpai for chlamydia next month. Progress Notes (Episode) 07/22/2011 GA: 17w0d Doing much better today. Was seen on 07/18 for abdominal tightening/cramping. Now is back to normal. Ultrasound was fine on Friday. Declines quad screen today. No movement yet. No bleeding. Feeling well otherwise PLAN: -- Follow up in 3 weeks -- 20 week ultrasound around that time. -- Nxcg-px-wwkv for chlamydia today Lary Aguilera MD .................... [...] 7. Baby's care provider (Please use notes), [facility] / Rooming in, Circumcision 8. Brochures [...] screen, but probably not -- Will need ldmn-mp-wfcc for chlamydia next month. 06/04/2011 10w1d First OB today, see progress note. Lary Aguilera MD .................... 06/04/2011 5:41 PM Chlamydia infection, current 06/07/2011 02/11/2012 Overview (06/07/2011): 06/04/2011 + chlamydia at 1st OB visit. Molluscum contagiosum 06/04/20112012 Major depression, single episode 04/13/2010 12/31/2012 Tobacco use disorder 11/17/2009 013 Overview (02/11/2012): 2-3 per day. During preg. 2011 chantix 01/2012 Degeneration of thoracic intervertebral disc 0 12/31/2012 Screening for lipoid disorders 12/31/2012 Overview (10/15/2011): 11/26/08 Total: 195 Triglyceride: 200 HDL: 43 LDL:112 Encounters Date Type Department Care Team Description 12/31/2023 2:00 PM CDT Office Visit [facility] [address] [place] [address] Moe Mendez NP Sinus Problem (Patient presents with pressure, cough,. Has been going on for x 1 week /) 12/31/2023 Travel 12/17/2023 Travel 11/27/2023 2:00 PM CDT Office Visit [facility] [address] [place] [address] Moe Mendez NP UTI (patient presents with burning upon urination and she states that it feels like she isn't fully emptying her bladder- symptoms began 1 week ago. patient is 25 weeks ) 11/27/2023 Travel 11/25/2023 4:05 PM CDT Office Visit [facility] [address] [place] [address] Monica Reyes PA Derm Problem (wart between rectum and vagina) 11/25/2023 Travel from Last 3 Months Immunizations Name [...] Livin g 9 9 Chris Matute Delivery Location:[facility] Comments:Prolonged sec ond stage Current Last Filed Vital Signs Vital Sign Reading Time Taken Comments Blood Pressure 142/82 12/31/2023 2:09 PM CDT Pulse 105 12/31/2023 2:09 PM CDT Temperature 36.7 C (98.1 F) 12/31/2023 2:09 PM CDT Respiratory Rate 18 12/31/2023 2:09 PM CDT [...] st Contact Info) Description 04/14/2024 2:30 PM DINKEY ENGINEER Telemedicine [facility] [address] [place] [address] Valencia Barraza, YUAN [address] [place] [address] Health Maintenance Due Date Last Done Comments [...] 2:01 PM CDT Vaginal pain Urethritis, nonspecific CANT GANG SAWYER THIN PREP PAP SCREEN IMAGED Routine 05/29/2023 3:02 PM DINKEY ENGINEER Screening for malignant neoplasm of cervix ANTI HIV 1/2 Routine 12/27/2019 4:02 PM CDT Screening examination for venereal disease ANTI HCV Routine 12/27/2019 4:02 PM CDT Screening examination for venereal disease from Last 3 Months or Most Recently Relevant to Health Maintenance Results * URINE CULTURE (11/27/2023 2:01 PM CDT) CULTURE 10-50,000 CFU/mL of multiple organisms, probable contaminants 11/28/2023 5:41 PM CDT [facility] TRAL LABORATORY Urine URINE SPECIMEN / Unknown Non-Blood / Unknown 11/27/2023 2:01 PM CDT 11/27/2023 2:01 PM CDT Moe Mendez NP [facility] [address] [place] [address], * (ABNORMAL) UA W/ SEDIMENT EXAM REFLEXED PER CRITERIA (11/27/2023 2:01 PM CDT) COLOR Yellow Yellow Color 11/27/2023 2:07 PM CDT [facility] CLARITY Clear Clear Clarity 11/27/2023 2:07 PM CDT [facility] SPECIFIC GRAVITY,URINE >=1.030(A) 1.010, 1.015, 1.020, 1.025 11/27/2023 2:07 PM CDT [facility] PH,URINE 6.0 6.0, 7.0, 8.0, 5.5, 6.5, 7.5, 8.5 11/27/2023 2:07 PM CDT [facility] UROBILINOGEN, QUALITATIVE Normal Normal EU/dl 11/27/2023 2:07 PM CDT [facility] PROTEIN, URINE Trace(A) Negative mg/dL 11/27/2023 2:07 PM CDT [facility] GLUCOSE, URINE Negative Negative mg/dL 11/27/2023 2:07 PM CDT [facility] KETONES,URINE Negative Negative mg/dL 11/27/2023 2:07 PM CDT [facility] BILIRUBIN,URI NE Negative Negative 11/27/2023 2:07 PM CDT [facility] OCCULT BLOOD,URINE Negative Negative 11/27/2023 2:07 PM CDT [facility] NITRITE Negative Negative 11/27/2023 2:07 PM CDT [facility] LEUKOCYTE ESTERASE Negative Negative 11/27/2023 2:07 PM CDT [facility] Urine URINE SPECIMEN / Unknown Non-Blood / Unknown 11/27/2023 2:01 PM CDT 11/27/2023 2:01 PM CDT Moe Mendez WEB PROJECT MANAGER URINE [facility] [address] [place] [address], * (ABNORMAL) CANT GANG SAWYER THIN PREP PAP SCREEN IMAGED [[id number]] (05/29/2023 3:02 PM DINKEY ENGINEER) Case Report Gynecologic Cytology Report Case: [id number] Authorizing Provider: Abiola Masterson DO Collected: 05/29/2023 1502 Ordering Location: [facility] Received: 05/29/2023 1537 Clinic First Screen: Jere Forde Pathologist: Sonia Nolasco MD Specimen: CANT GANG SAWYER ThinPrep Vial Screening, Cervical 06/06/2023 4:27 PM DINKEY ENGINEER [facility] ENTRAL LABORATORY INTERPRETATION/ RESULT ATYPICAL SQUAMOUS CELLS OF UNDETERMINED SIGNIFICANCE (ASCUS)(A) (none) 06/06/2023 4:27 PM DINKEY ENGINEER [facility] ENTRAL LABORATORY IMEN ADEQUACY Satisfactory for evaluation Endocervical component present 06/06/2023 4:27 PM DINKEY ENGINEER [facility] ENTRAL LABORATORY HPV REQUEST HPV and PAP 06/06/2023 4:27 PM DINKEY ENGINEER [facility] ENTRAL LAB[facility]ATORY Date of LMP unknown 06/06/2023 4:27 PM DINKEY ENGINEER [facility] ENTRAL LABORATORY Last Pap Date 12/27/19 06/06/2023 4:27 PM DINKEY ENGINEER [facility] ENTRAL LABORATORY Last Pap Result LSIL 4:27 PM DINKEY ENGINEER [facility] ENTRAL LABORATORY Abnormal Pap or [place] Bx in last 5 years Yes 06/06/2023 4:27 PM DINKEY ENGINEER [facility] ENTRAL LABORATORY Menstrual Status Irregular Periods 06/06/2023 4:27 PM DINKEY ENGINEER [facility] ENTRAL LABORATORY [place] Bx Done Today No 06/06/2023 4:27 PM DINKEY ENGINEER [facility] ENTRAL LABORATORY Additional Information None given 06/06/2023 4:27 PM DINKEY ENGINEER [facility] ENTRAL LABORATORY Comment: Cytology is screened at [facility] Laboratory - [address], [place] [address] and [facility] - [address], [place] [address] [facility] - [address] [place] [address] Interpreted at [facility] Central Laboratory - [address], [place] [address] Automated Review Successful 06/06/2023 4:27 PM DINKEY ENGINEER [facility] ENTRAL LABORATORY Comment:Specimen processed s uccessfully by automated story analyst device, ThinPrep Imaging System, [employer] ANCILLARY TESTING CANT GANG SAWYER HPV Ordered, Please see separate report 06/06/2023 4:27 PM DINKEY ENGINEER [facility] ENTRAL LABORATORY Note The pap test is a screening technique, not a diagnostic procedure. It is used primarily to screen for squamous cancers and precursor lesions. Published studies have shown that it is subject to both false negative and false positive results. The pap test should not be used as the sole means to diagnose or exclude pre-malignant and malignant lesions. 06/06/2023 4:27 PM DINKEY ENGINEER [facility] ENTRAL LABORATORY Other (Cervical) Non-Blood / Unknown 05/29/2023 3:02 PM DINKEY ENGINEER 05/29/2023 3:37 PM DINKEY ENGINEER Abiola Masterson DO PATHOLOGY/CYTOLOGY [facility] [address] [place] [id number], [place] * ANTI HCV (12/27/2019 4:02 PM CDT) HEPATITIS C ANTIBODY Non-React vidal Non-React vidal 12/28/2019 3:55 PM CDT [facility] TRAL LABORATORY Comment:Antibodies to HCV no t detected; does not exclude the possibility of exposure to HCV. Blood BLOOD SPECIMEN / Unknown Butterfly / Unknown 12/27/2019 4:02 PM CDT 12/27/2019 4:06 PM CDT Yanet Alvarez MD SEND OUTS [facility] [address] [place] [address], [place] * ANTI HIV 1/2 (12/27/2019 4:02 PM CDT) HIV-1/HIV-2 ANTIBODY Non-Reacti ve Non-Reacti ve 12/28/2019 3:52 PM CDT [facility] TRAL LABORATORY Comment:HIV-1 p24 and HIV-1/ HIV-2 Ab not detected. Blood BLOOD SPECIMEN / Unknown Butterfly / Unknown 12/27/2019 4:02 PM CDT 12/27/2019 4:06 PM CDT Yanet Alvarez MD SEND OUTS [facility] LABORAT[facility]-CENTRAL LABORATORY [address] [place] [address], from Last 3 Months or Most Recently [...] 8:21 PM 12/28/2011 11:54 PM Care Teams Charge Loader Relationship Specialty Start Date End Date Abiola Masterson DO [address] [place] [address] PCP - General Family Practice 04/14/23
--- OUTSIDE RECORDS SUMMARY | 2024-02-22 03:28 | XMS_ITS | Clinical Summary ---
Author Organization [facility] Address [address] [place] [address] Care Team Providers Care Blower And Compressor Assembler Name Role Phone No Ref-Primary, Physician Primary [...] to complete this topic Insurance [place] [id number] [facility] [place] [address] [facility] Care Teams Blower And Compressor Assembler Relationship Specialty Start Date End Date No Ref-Primary, Physician PCP - General 10/20/23
--- OUTSIDE RECORDS SUMMARY | 2024-02-22 03:28 | XMS_ITS | Referral Summary ---
Author Organization [facility] Address [address] [place] [address] Care Team Providers Care Income Tax Advisor Name Role Phone Unavailable Primary Care Provider Unavailabl e Source Comments Patient records contain information from all sites at [facility]. For routine questions regarding patient records, call [phone] during business hours, M-F 8:00 AM - 5:00 PM Central Time. Record requests for emergency care only can be directed to [phone] at any time.[facility] Allergies No known active allergies Medications pyridoxine [...] B-12 ORAL) Take by mouth. Active prenat.vits,kandy, tsa-icnh-eilmt tablet Take 1 tablet by mouth daily. 07/17/2023 Active Active Problems Patient Care Coordination No te Formatting of this note migh t be different from the original. Boyfrienmary Ulloa. His first baby! She is moving [facility] during the (likely summertime) Problem Noted Date Diagnosed Date Complication Morbid Obesity Body Mass Index Greater Than 40 08/13/2023 Body Mass Index 50.0 To 59.9 Adult 08/13/2023 Elderly Multigravida Greater Than 35 Y ear Old 08/13/2023 Overview (08/13/2023): Desires NIP Panorama, scheduled 08/20/23 Preexisting Hypertension 08/13/2023 Overview (08/13/2023): Baseline preeclampsia labs collected at [facility] OB Will begin 81 mg ASA at 12 weeks Depression Anxiety 08/13/2023 High Risk 08/13/2023 Overview (08/13/2023): BMI >50 Chronic HTN Elderly multigravida Anxiety/depression We discussed advanced level US, SEBASTIAN consult. She is very likely moving to [facility], and will be transferring her care [...] drink = 0.6 oz pur e alcohol) [facility] Utilities Answer Date Recorded In the past 12 months has e Apto, gas, oil, or water company threatened to [...] Type Associated Problems Recent Progress Patient-Stated? Author [facility] Care Plan for Healthy Care Plan [facility] Care Plan for Healthy No Support, [facility] - Nicotine Dependency Chronic Care Plan [facility] Care Plan for Healthy No Support, Cogito [...] S Negative Negative 08/14/2023 10:25 AM CDT [facility] Comment: Consumption of high-dose biotin supplement within 12 hours of blood collection for this test can cause false-negative results. Blood (Blood, Venous) 08/13/2023 4:52 PM CDT 08/14/2023 7:24 AM CDT us Loreta Ramirez APRN, C.N.P. LAB MICROBIOLOGY - BLO OD ORDERABLES Final Result [facility] [address] [place] [address] [facility] [address] [place] [address] * HIV-1/-2 Ag and Ab Scrn, Plasma [...] MICROBIOLOGY - BLO OD ORDERABLES Final Result [facility] [address] [place] [address], [place] [facility] [place] [address] [place] [address] from Last 3 Months or Most Recently Relevant to Health Maintenance Additional Health Concerns Active Problems Noted Date Diagnosed Date [facility] Care Plan for Healthy 08/[address] [facility]
--- OUTSIDE RECORDS SUMMARY | 2024-02-22 03:28 | XMS_ITS | Referral Summary ---
Author Organization [facility] Address [address] [place] [id number] Care Team Providers Care Fur Blowing Machine Operator Name Role Phone No Ref-Primary, [...] of Treatment Not on file Insurance [facility] [place] [address] [place] Care Teams Fur Blowing Machine Operator Relationship Specialty Start Date End Date No Ref-Primary, Physician PCP - General 10/20/23
--- OUTSIDE RECORDS SUMMARY | 2024-02-22 03:28 | XMS_ITS | Clinical Summary ---
Author Organization [facility] Address [address] [place] [address] Care Team Providers Care Harness Fitter Name Role Phone Unavailable Primary Care Provider [...] for each transition of care or referral. [facility] Social History Tobacco Use Types Packs/Day [...] this topic Kailey Jackson Personal/Family Self 1990 [id number] [place] [id number] Kailey Jackson Workers Comp Self 1990 [address] [place] [id number]
--- OUTSIDE RECORDS SUMMARY | 2024-02-22 03:28 | XMS_ITS ---
Author Organization [facility] Address [address] [place] [address] Care Team Providers Care Toll Test Desk Worker Name Role Phone Unavailable Unavailable Unavailable Surgery Details Not on file Complications Check Surgery Details section. Procedure Estimated Blood Loss Check Surgery Details section. Procedure Findings Check Surgery Details section. Procedure Specimens Taken Check Surgery Details section.
== END 2024-02-18 13:48 | disposition home or self-care (01) ==
LOC: NFLDREF 02-22 03:24
PROVIDERS: Visit Provider Obstetrics & Gynecology
DX: O10.913 Unspecified pre-existing hypertension complicating pregnancy, third trimester (principal); Z3A.36 36 weeks gestation of pregnancy
CPT/HCPCS: 82565; 84450; 84460

== ENCOUNTER 2024-02-18 13:48 | Outpatient (CLI) | payer OTHER, MEDICAID, SELFPAY ==
--- NOTE | 2024-02-18 14:00 | CRLHL7_ITS ---
For Patients: As a result of the Century Cures Act, medical imaging exams and procedure reports are released immediately into your electronic medical record. You may view this report before your referring provider. If you have questions, please contact your health care provider. HISTORY: growth. Chronic hypertension. Elevated BMI. COMPARISON: Biophysical profile score from 02/01/2024 TECHNIQUE: Ultrasound examination of the is performed with transabdominal technique. A biophysical profile score is also obtained. FINDINGS: A single intrauterine gestation is seen in cephalic presentation with regular cardiac activity at 137 beats per minute. The placenta is posterior and is free of the cervical os. The placental grade is 1 and the amniotic fluid volume is normal. Single deepest vertical pocket: 4.5 cm, decreased compared to the previous study where it measured 7.7 cm. BPD: 8.5 cm 34 weeks 2 days HC: 31.6 cm 35 weeks 3 days AC: 34.3 cm 38 weeks 2 days. Ninety-fourth percentile FL: 7.1 cm 36 weeks 2 days The estimated age by ultrasound is 36 weeks 1 day, with an estimated date of delivery of 03/16/2024. This correlates well with the clinical age of 36 weeks 4 days. The ultrasound ratios are normal. The estimated weight of 3100 grams is at the 66th percentile based on the clinical dates. The biophysical profile score is 8/8, with no points off. IMPRESSION: 1. Single intrauterine gestation in cephalic presentation with regular cardiac activity. 2. Estimated gestational age is 36 weeks 1 day. 3. There has been appropriate interval growth. 4. The estimated weight of 3100 grams is at the 66th percentile based on the clinical dates. 5. The biophysical profile score is 8/8, with no points off. Dictated by Jeffry Chong MD @ 02/19/2024 10:33:04 AM (Electronically Signed)
== END 2024-02-18 13:49 | disposition home or self-care (01) ==
LOC: US 13:48
PROVIDERS: Visit Provider Obstetrics & Gynecology
DX: O10.913 Unspecified pre-existing hypertension complicating pregnancy, third trimester (principal); Z3A.36 36 weeks gestation of pregnancy
CPT/HCPCS: 76816; 76819

== ENCOUNTER 2024-02-22 16:25 | Inpatient (IN) | payer OTHER, MEDICAID, SELFPAY ==
[2024-02-22] VITALS (7 sets, daily range): BP systolic 135–146; BP diastolic 77–92; PULSE 73–109; RESP 17–20; TEMP 36.7–36.9; O2SAT 93–98; BMI 54.9
--- OUTSIDE RECORDS SUMMARY | 2024-02-22 16:29 | XMS_ITS | Continuity of Care Document ---
Author Name [facility] Organization [facility] Care Team Providers Care Qc Analyst Name Role Phone [facility] Unavailable Unavailable Problems [...] DoD obesity Active Condition DoD visit for: [facility] physical medical evaluation board (MEB) [...] Diseases Inactive Condition DoD Anxiety Active Condition [facility] Attention deficit hyperactivity disorder, predominantly inattentive type Active Condition [facility] Cancer cervix screening status Active Condition Nov 21 Entered By: MAILE RAZA Comment: No hx BJ 2-3Aug 2021 Entered By: MAILE RAZA Comment: 12/07/20 Colposcopy neg/ECC negAug 2021 Entered By: MAILE RAZA Comment: 11/15/21 PAP NILM/HPV neg. Next co-test due in 3 years (10/2024). [facility] Fatigue Active Condition [facility] Major depressive disorder Active Condition [facility] Nasal congestion Active Condition [facility] White blood cell count abnormal Active Condition Nov 08, 2020 Entered By: MAILE RAZA Comment: chronic, peripheral smear done 10/2020 [facility] Diagnosis: ICD-10-CM O09.523 Supervision of elderly multigravida, third trimester Active Diagnosis [facility] Diagnosis: ICD-10-CM O09.522 Supervision of elderly multigravida, second trimester Active Diagnosis [facility] Diagnosis: ICD-10-CM O09.521 Supervision of elderly multigravida, first trimester Active Diagnosis [facility] Diagnosis: ICD-10-CM J34.2 Deviated nasal septum Active Diagnosis [facility] Diagnosis: ICD-10-CM E66.01 Morbid (severe) obesity due to excess calories Active Diagnosis [facility] Diagnosis: ICD-10-CM M54.50 Low back pain, unspecified Active Diagnosis [facility] Diagnosis: ICD-10-CM F90.0 Attn-defct hyperactivity disorder, predom inattentive type Active Diagnosis [facility] Diagnosis: ICD-10-CM F41.9 Anxiety disorder, unspecified Active Diagnosis [facility] Diagnosis: ICD-10-CM M25.552 Pain in left hip Active Diagnosis [facility] Diagnosis: ICD-10-CM R09.81 Nasal congestion Active Diagnosis [facility] Diagnosis: ICD-10-CM L70.8 Other acne Active Diagnosis [facility] Diagnosis: ICD-10-CM K58.2 Mixed irritable bowel syndrome Active Diagnosis [facility] Diagnosis: ICD-10-CM H52.03 Hypermetropia, bilateral Active Diagnosis [facility] Diagnosis: ICD-10-CM R53.82 Chronic fatigue, unspecified Active Diagnosis [facility] Diagnosis: ICD-10-CM Z13.89 Encounter for screening for other disorder Active Diagnosis [facility] Medications Combined list of outpatient medications from Department of Defense and [facility] Affairs facilities.Medications provided include [...] OR WHEEZING RESPIR ATORY (INHAL ATION) 11/07/2023 [id number] ALBERTO MCLAUGHLIN ANNETTE 2023 1 [facility] CICLOPIROX 8% SOLN,TOP APPLY THIN FILM TOPICALL Y EVERY DAY FOR FUNGAL NAIL INFECTIO N -- USE UNTIL RESOLUTI ON OR 48 WEEKS TOPICA L 01/01/2024 [id number] 3 LEOPOLDO GUERRERO L 2022 19.8 [facility] FLUCONAZOLE 150MG TAB TAKE ONE TABLET BY MOUTH ONCE FOR ONE DOSE ORAL DISCONT INUED 06/13/2023 [id number] 4 Bonny FELIPE S 2023 1 [facility] IMIQUIMOD 5% CREAM,TOP,P KT,0.25GM APPLY 1 PACKET TOPICALL Y FRIDAY, Y AND FRIDAY AT BEDTIME LEAVE ON SKIN FOR 8 HOURS. DO NOT USE WHILE TOPICA L ACTIVE 10/30/2024 [id number] 4 FB-HRDLIC JAH SMITH 2023 24 [facility] METRONIDAZO LE 500MG TAB TAKE ONE TABLET BY MOUTH TWICE A DAY FOR 7 DAYS ORAL DISCONT INUED 06/13/2023 [id number] 4 Bonny FELIPE 2023 14 [facility] MODAFINIL 200MG TAB TAKE ONE AND ONE-HALF TABLETS BY MOUTH EVERY MORNING FOR MOOD, ENERGY ORAL DISCONT INUED BY PROVIDE R 05/31/2023 [id number] 4 [place],Sherine BIGAIL E 2022 45 [facility] MULTIVITAMI NS W/MINERALS, CAP/TAB TAKE 1 TABLET BY MOUTH EVERY DAY FOR SUPPLEME NT ORAL ACTIVE 08/07/2024 [id number] 4 BINA BAI 2023 100 [facility] MULTIVITAMI NS W/MINERALS, CAP/TAB TAKE 1 TABLET BY MOUTH EVERY DAY FOR SUPPLEME NT ORAL DISCONT INUED 07/20/2023 [id number] 3 BINA BAI 2022 100 [facility] NIFEDIPINE (EQV-CC) 30MG TAB,SA TAKE ONE TABLET BY MOUTH EVERY DAY FOR BLOOD PRESSURE ORAL ACTIVE 08/07/2024 [id number] 4 BINA BAI 2023 90 [facility] NIFEDIPINE (EQV-CC) 30MG TAB,SA TAKE ONE TABLET BY MOUTH EVERY DAY FOR BLOOD PRESSURE ORAL DISCONT INUED 07/20/2023 [id number] 4 BINA BAI 2022 90 [facility] OMEPRAZOLE 20MG CAP,EC TAKE TWO CAPSULES BY MOUTH EVERY DAY BEFORE A MEAL ORAL DISCONT INUED 08/15/2023 [id number] 4 CAT-IMANI BENNETT W 2023 60 [facility] 150MG 24HR CAP,SA TAKE ONE CAPSULE BY MOUTH EVERY DAY FOR ANXIETY, PAIN ORAL DISCONT INUED BY PROVIDE R 01/17/2024 [id number] 4 GILA RIVER,A BIGAIL E 2022 90 [facility] VENLAFAXINE HCL 37.5MG 24HR CAP,SA TAKE ONE CAPSULE BY MOUTH EVERY DAY WITH A MEAL ORAL DISCONT INUED BY PROVIDE R 07/05/2023 [id number] 4 EDEN ABDOULAYE Lees 2023 14 [facility] VENLAFAXINE HCL 75MG 24HR CAP,SA TAKE ONE CAPSULE BY MOUTH EVERY DAY WITH MEAL FOR 14 DAYS ORAL DISCONT INUED BY PROVIDE R 07/05/2023 [id number] 4 EDEN LeesABDOULAYE 2023 14 [facility] VENLAFAXINE HCL 75MG 24HR CAP,SA TAKE ONE CAPSULE BY MOUTH EVERY DAY FOR ANXIETY, PAIN ORAL DISCONT INUED (EDIT) 11/29/2023 [id number] GILA RIVER,A BIGAIL E 2022 90 [facility] Allergies, Adverse Reactions, Alerts [...] Site Reaction Lot Number CVX Code Drug Health Services Manager Status Comments Source TD (ADULT), 2 LF TETANUS TOXOID, PRESERVATIVE FREE, ADSORBED 2018 09 complet ed sanofi, [id number], EX 12/22/19 [facility] INFLUENZA, SEASONAL, INJECTABLE 2012 141 complet ed [facility] HPV, QUADRIVALENT 2 2011 62 complet ed [facility] INFLUENZA, SEASONAL, INJECTABLE 2011 141 complet ed [facility] TDAP 2011 115 complet ed [facility] INFLUENZA, SEASONAL, INJECTABLE 2011 141 complet ed [facility] HPV, QUADRIVALENT 1 2010 62 complet ed [facility] Novel influenza-H1N 1-09, injectable 1 2008 [id number] [employer]. (NOV) complet ed Novel influenza -P5V4-42, injectabl e DoD anthrax vaccine 2 2008 [id number] [employer] ([facility]) complet ed anthrax vaccine DoD anthrax vaccine 1 2008 [id number] [facility]) complet ed anthrax vaccine DoD vaccinia (smallpox) vaccine 1 2008 UNK 75 Unknown (UNK) Not Given vaccinia (smallpox ) vaccine DoD typhoid Vi capsular polysaccharid e vaccine 1 2008 [id number] Unknown (UNK) comple t ed typhoid Vi capsular polysacch aride vaccine DoD human papilloma virus vaccine, quadrivalent 1 2008 IBETH RUBY P [id number] 62 Merck (MSD) complet ed human papilloma virus vaccine, quadrival ent DoD influenza virus vaccine, live, attenuated, for intranasal use 1 2007 [id number] Other (OTH) complet ed influenza virus vaccine, live, attenuate d, for intranasa l use DoD hepatitis A vaccine, adult dosage 2 2007 [id number] 52 Unknown (UNK) complet ed hepatitis A vaccine, adult dosage DoD measles, mumps and rubella virus vaccine 1 2007 UNK 03 Unknown (UNK) Not Given measles, mumps and rubella virus vaccine DoD poliovirus vaccine, inactivated 1 2007 [id number] Sanofi Pasteur ([facility]) complet ed polioviru s vaccine, inactivat ed DoD varicella virus vaccine 1 2007 UNK 21 Unknown (UNK) Not Given varicella virus vaccine DoD hepatitis B vaccine, adult dosage 1 2007 UNK 43 Unknown (UNK) Not Given hepatitis B vaccine, adult dosage DoD hepatitis A vaccine, adult dosage 1 2007 [id number] 52 [employer] (SKB) complet ed hepatitis A vaccine, adult dosage DoD influenza virus vaccine, live, attenuated, for intranasal use 1 2007 [id number] 111 [employer] (MED) complet ed influenza virus vaccine, live, attenuate d, for intranasa l use DoD meningococcal polysaccharid e (groups A, C, Y and W-135) diphtheria toxoid conjugate vaccine (MCV4P) 1 2007 [id number] Sanofi Pasteur (PMC) complet ed meningoco ccal polysacch aride (groups A, C, Y and W-135) diphtheri a toxoid conjugate vaccine (MCV4P) DoD tetanus toxoid, reduced diphtheria toxoid, and acellular pertu is vaccine, adsorbed 1 2007 [id number] 115 Sanofi Pasteur (PMC) complet ed tetanus toxoid, reduced diphtheri a toxoid, and acellular pertussis vaccine, adsorbed DoD TDAP 2007 115 complet ed [place] [facility] Results Combined list of recent chemistry, [...] Dec 31, 2022 01:23 PM Reporting Lab: [facility] [phone] Performing Lab: [facility] [address] [facility] C.TRACHO MATIS/N. GONORRHE A DNA NEISSERIA GONORRHOEA E DNA [PRESENCE] IN URINE BY MAL WITH PROBE DETECTION NOT DETECTED 12/31 Specimen Type: URINE No comment entered. Ordering Provider: Angy GUERRERO Report Released Date/Time: Dec 31, 2022 01:23 PM Reporting Lab: [facility] [address] Performing Lab: [facility] [address] [facility] C.TRACHO MATIS/N. GONORRHE A DNA INTERPRETA TION AND REVIEW OF LABORATORY RESULTS Infectio us agent DNA is not detected by this assay 12/31 Specimen Type: URINE No comment entered. Ordering Provider: Angy GUERRERO Report Released Date/Time: Dec 31, 2022 01:23 PM Reporting Lab: [facility] [address] Performing Lab: [facility] [address] [facility] HCG, QUAL CHORIOGONA DOTROPIN.B ETA SUBUNIT ( TEST) [PRESENCE] IN URINE NEGATIVE 12/31 Specimen Type: URINE No comment entered. Ordering Provider: Angy GUERRERO Report Released Date/Time: Dec 31, 2022 01:23 PM Reporting Lab: [facility] [address] Performing Lab: [place] [address] [place] [facility] C-REACTI VE PROTEIN C REACTIVE PROTEIN [...] Jul 19, 2022 09:34 AM Reporting Lab: [facility] [address] Performing Lab: [facility] [address] [facility] CBC & DIFF LEUKOCYTES [#/VOLUME] IN BLOOD BY AUTOMATED COUNT 13.98 10*3/uL 4.0 - 11.0 12/31 H Specimen Type: BLOOD Comment: Manual Differentia l Performed Ordering Provider: JAKUB RAZA Report Released Date/Time: Jul 18, 2022 03:26 PM Reporting Lab: [facility] [address] Performing Lab: [facility] [address] [facility] CBC & DIFF ERYTHROCYT ES [#/VOLUME] IN BLOOD BY AUTOMATED COUNT 4.29 10*6/uL 4.0 - 5.4 12/31 Specimen Type: BLOOD Comment: Manual Differentia l Performed Ordering Provider: JAKUB RAZA Report Released Date/Time: Jul 18, 2022 03:26 PM Reporting Lab: [facility] [address] Performing Lab: [facility] [address] [place] [facility] CBC & DIFF HEMOGLOBIN [MASS/VOLU ME] IN BLOOD 14.0 g/dL 11.5 - 16 10/03 /2023 Specimen Type: BLOOD Comment: Manual Differentia l Performed Ordering Provider: JAKUB RAZA Report Released Date/Time: Jul 18, 2022 03:26 PM Reporting Lab: [facility] [phone] Performing Lab: [facility] [address] [place] [facility] CBC & DIFF HEMATOCRIT [VOLUME FRACTION] OF BLOOD BY AUTOMATED COUNT 40.2 34.5 - 48 12/31 Specimen Type: BLOOD Comment: Manual Differentia l Performed Ordering Provider: JAKUB RAZA Report Released Date/Time: Jul 18, 2022 03:26 PM Reporting Lab: [facility] [address] Performing Lab: [facility] [address] [place] [facility] CBC & DIFF MCV [ENTITIC VOLUME] BY AUTOMATED COUNT 93.7 fL 80 - 100 12/31 Specimen Type: BLOOD Comment: Manual Differentia l Performed Ordering Provider: JAKUB RAZA Report Released Date/Time: Jul 18, 2022 03:26 PM Reporting Lab: [facility] [address] Performing Lab: [facility] [address] [place] [facility] CBC & DIFF MCH [ENTITIC MASS] BY AUTOMATED COUNT 32.6 pg 27 - 33 12/31 Specimen Type: BLOOD Comment: Manual Differentia l Performed Ordering Provider: JAKUB RAZA Report Released Date/Time: Jul 18, 2022 03:26 PM Reporting Lab: [facility] [address] Performing Lab: [facility] [address] [place] [facility] CBC & DIFF MCHC [MASS/VOLU ME] BY AUTOMATED COUNT 34.8 g/dL 32.0 - 37.5 12/31 Specimen Type: BLOOD Comment: Manual Differentia l Performed Ordering Provider: JAKUB RAZA Report Released Date/Time: Jul 18, 2022 03:26 PM Reporting Lab: [facility] [address] Performing Lab: [facility] [address] [place] [facility] CBC & DIFF PLATELETS [#/VOLUME] IN BLOOD BY AUTOMATED COUNT 361 10*3/uL 150 - 400 12/31 Specimen Type: BLOOD Comment: Manual Differentia l Performed Ordering Provider: JAKUB RAZA Report Released Date/Time: Jul 18, 2022 03:26 PM Reporting Lab: [facility] [address] Performing Lab: [facility] [address] [place] [facility] CBC & DIFF PLATELET MEAN VOLUME [ENTITIC VOLUME] IN BLOOD BY AUTOMATED COUNT 8.8 fL 7.4 - 10.4 12/31 Specimen Type: BLOOD Comment: Manual Differentia l Performed Ordering Provider: JAKUB RAZA Report Released Date/Time: Jul 18, 2022 03:26 PM Reporting Lab: [facility] [address] Performing Lab: [facility] [address] [facility] CBC & DIFF NEUTROPHIL S/100 LEUKOCYTES IN BLOOD BY MANUAL COUNT 59.9 12/31 Specimen Type: BLOOD Comment: Manual Differentia l Performed Ordering Provider: JAKUB RAZA Report Released Date/Time: Jul 18, 2022 03:26 PM Reporting Lab: [facility] [address] Performing Lab: [facility] [address] [facility] CBC & DIFF LYMPHOCYTE S/100 LEUKOCYTES IN BLOOD BY MANUAL COUNT 31.5 12/31 Specimen Type: BLOOD Comment: Manual Differentia l Performed Ordering Provider: JAKUB RAZA Report Released Date/Time: Jul 18, 2022 03:26 PM Reporting Lab: [facility] [address] Performing Lab: [facility] [address] [place] [facility] CBC & DIFF ERYTHROCYT E DISTRIBUTI ON WIDTH [RATIO] BY AUTOMATED COUNT 12.5 11.5 - 14.5 12/31 Specimen Type: BLOOD Comment: Manual Differentia l Performed Ordering Provider: JAKUB RAZA Report Released Date/Time: Jul 18, 2022 03:26 PM Reporting Lab: [facility] [address] Performing Lab: [facility] [address] [place] [facility] CBC & DIFF MONOCYTES/ 100 LEUKOCYTES IN BLOOD BY AUTOMATED COUNT 4.1 12/31 Specimen Type: BLOOD Comment: Manual Differentia l Performed Ordering Provider: JAKUB RAZA Report Released Date/Time: Jul 18, 2022 03:26 PM Reporting Lab: [facility] [address] Performing Lab: [facility] [address] [place] [facility] CBC & DIFF EOSINOPHIL S/100 LEUKOCYTES IN BLOOD BY AUTOMATED COUNT 3.0 12/31 Specimen Type: BLOOD Comment: Manual Differentia l Performed Ordering Provider: JAKUB RAZA Report Released Date/Time: Jul 18, 2022 03:26 PM Reporting Lab: [facility] [address] Performing Lab: [facility] [address] [place] [facility] CBC & DIFF BASOPHILS/ 100 LEUKOCYTES IN BLOOD BY MANUAL COUNT 1.0 12/31 Specimen Type: BLOOD Comment: Manual Differentia l Performed Ordering Provider: JAKUB RAZA Report Released Date/Time: Jul 18, 2022 03:26 PM Reporting Lab: [facility] [address] Performing Lab: [facility] [address] [place] [facility] CBC & DIFF MYELOCYTES /100 LEUKOCYTES IN BLOOD BY MANUAL COUNT 0.5 12/31 Specimen Type: BLOOD Comment: Manual Differentia l Performed Ordering Provider: JAKUB RAZA Report Released Date/Time: Jul 18, 2022 03:26 PM Reporting Lab: [facility] [phone] Performing Lab: [facility] [address] [place] [facility] CBC & DIFF LYMPHOCYTE S [#/VOLUME] IN BLOOD BY AUTOMATED COUNT 4.40 10*3/uL 1.0 - 4.0 12/31 H Specimen Type: BLOOD Comment: Manual Differentia l Performed Ordering Provider: JAKUB RAZA Report Released Date/Time: Jul 18, 2022 03:26 PM Reporting Lab: [facility] [address] Performing Lab: [facility] [address] [place] [facility] CBC & DIFF MONOCYTES [#/VOLUME] IN BLOOD BY AUTOMATED COUNT 0.57 10*3/uL 0.1 - 1.0 12/31 Specimen Type: BLOOD Comment: Manual Differentia l Performed Ordering Provider: JAKUB RAZA Report Released Date/Time: Jul 18, 2022 03:26 PM Reporting Lab: [facility] [address] Performing Lab: [facility] [address] [place] [facility] CBC & DIFF NEUTROPHIL S [#/VOLUME] IN BLOOD BY AUTOMATED COUNT 8.37 10*3/uL 2.0 - 7.7 12/31 H Specimen Type: BLOOD Comment: Manual Differentia l Performed Ordering Provider: JAKUB RAZA Report Released Date/Time: Jul 18, 2022 03:26 PM Reporting Lab: [facility] [address] Performing Lab: [facility] [address] [place] [facility] CBC & DIFF EOSINOPHIL S [#/VOLUME] IN BLOOD BY AUTOMATED COUNT 0.42 10*3/uL 0 - 0.5 12/31 Specimen Type: BLOOD Comment: Manual Differentia l Performed Ordering Provider: JAKUB RAZA Report Released Date/Time: Jul 18, 2022 03:26 PM Reporting Lab: [facility] [address] Performing Lab: [facility] [address] [place] [facility] CBC & DIFF BASOPHILS [#/VOLUME] IN BLOOD BY AUTOMATED COUNT 0.14 10*3/uL 0 - 0.2 12/31 Specimen Type: BLOOD Comment: Manual Differentia l Performed Ordering Provider: JAKUB RAZA Report Released Date/Time: Jul 18, 2022 03:26 PM Reporting Lab: [facility] [address] Performing Lab: [facility] [address] [place] [facility] CBC & DIFF MYELOCYTES [#/VOLUME] IN BLOOD BY MANUAL COUNT 0.07 10*3/uL 12/31 Specimen Type: BLOOD Comment: Manual Differentia l Performed Ordering Provider: LUZ MARINA,SOP HIA A Report Released Date/Time: Jul 18, 2022 03:26 PM Reporting Lab: [facility] [address] Performing Lab: [facility] [address] [facility] CBC & DIFF ERYTHROCYT E MORPHOLOGY FINDING [IDENTIFIE R] IN BLOOD NORMOCYT IC, NORMOCHR OMIC 12/31 Specimen Type: BLOOD Comment: Manual Differentia l Performed Ordering Provider: JAKUB RAZA Report Released Date/Time: Jul 18, 2022 03:26 PM Reporting Lab: [facility] [address] Performing Lab: [facility] [address] [facility] COMPREHE NSIVE METABOLI C PANEL+MG CREATININE [...] Jul 19, 2022 09:34 AM Reporting Lab: [facility] [address] Performing Lab: [facility] [address] [facility] COMPREHE NSIVE METABOLI C PANEL+MG UREA [...] Jul 19, 2022 09:34 AM Reporting Lab: [facility] [address] Performing Lab: [facility] [address] [facility] COMPREHE NSIVE METABOLI C PANEL+MG GLUCOSE [...] Jul 19, 2022 09:34 AM Reporting Lab: [facility] [address] Performing Lab: [place] [phone] [facility] COMPREHE NSIVE METABOLI C PANEL+MG SODIUM [...] Jul 19, 2022 09:34 AM Reporting Lab: [facility] [address] Performing Lab: [facility] [address] [facility] COMPREHE NSIVE METABOLI C PANEL+MG POTASSIUM [...] Jul 19, 2022 09:34 AM Reporting Lab: [facility] [address] Performing Lab: [facility] [address] [place] [facility] COMPREHE NSIVE METABOLI C PANEL+MG CHLORIDE [...] Jul 19, 2022 09:34 AM Reporting Lab: [facility] [address] Performing Lab: [facility] [address] [place] [facility] COMPREHE NSIVE METABOLI C PANEL+MG CARBON [...] Jul 19, 2022 09:34 AM Reporting Lab: [facility] [address] Performing Lab: [facility] [address] [facility] COMPREHE NSIVE METABOLI C PANEL+MG CALCIUM [...] Jul 19, 2022 09:34 AM Reporting Lab: [facility] [address] Performing Lab: [facility] [address] [facility] COMPREHE NSIVE METABOLI C PANEL+MG PROTEIN [...] Jul 19, 2022 09:34 AM Reporting Lab: [facility] [address] Performing Lab: [facility] [address] [place] [facility] COMPREHE NSIVE METABOLI C PANEL+MG ALBUMIN [...] Jul 19, 2022 09:34 AM Reporting Lab: [facility] [address] Performing Lab: [facility] [address] [facility] COMPREHE NSIVE METABOLI C [...] Jul 19, 2022 09:34 AM Reporting Lab: [facility] [address] Performing Lab: [facility] [address] [facility] COMPREHE NSIVE METABOLI C PANEL+MG MAGNESIUM [...] Jul 19, 2022 09:34 AM Reporting Lab: [facility] [address] Performing Lab: [facility] [address] [facility] COMPREHE NSIVE METABOLI C [...] Jul 19, 2022 09:34 AM Reporting Lab: [facility] [address] Performing Lab: [facility] [address] [facility] COMPREHE NSIVE METABOLI C [...] Jul 19, 2022 09:34 AM Reporting Lab: [facility] [address] Performing Lab: [facility] [address] [facility] COMPREHE NSIVE METABOLI C PANEL+MG ALANINE [...] Jul 19, 2022 09:34 AM Reporting Lab: [facility] [address] Performing Lab: [facility] [address] [facility] COMPREHE NSIVE METABOLI C [...] Jul 19, 2022 09:34 AM Reporting Lab: [facility] [address] Performing Lab: [facility] [address] [place] [facility] COMPREHE NSIVE METABOLI C PANEL+MG GLOMERULAR [...] Jul 19, 2022 09:34 AM Reporting Lab: [facility] [address] Performing Lab: [facility] [address] [place] [facility] LIPID PANEL,NO N-FASTIN G CHOLESTERO L [...] Jul 19, 2022 09:34 AM Reporting Lab: [facility] [address] Performing Lab: [facility] [address] [place] [facility] LIPID PANEL,NO N-FASTIN G CHOLESTERO L [...] Jul 19, 2022 09:34 AM Reporting Lab: [facility] [id number] Performing Lab: [facility] [address] [place] [facility] LIPID PANEL,NO N-FASTIN G CHOLESTERO L [...] Jul 19, 2022 09:34 AM Reporting Lab: [facility] [id number] Performing Lab: [facility] [id number] [place] [facility] LIPID PANEL,NO N-FASTIN G CHOLESTERO L [...] Jul 19, 2022 09:34 AM Reporting Lab: [facility] [address] Performing Lab: [facility] [address] [place] [facility] LIPID PANEL,NO N-FASTIN G CHOLESTERO L [...] Jul 19, 2022 09:34 AM Reporting Lab: [facility] [address] Performing Lab: [facility] [address] [place] [facility] LIPID PANEL,NO N-FASTIN G TRIGLYCERI DE [...] Jul 19, 2022 09:34 AM Reporting Lab: [facility] [address] Performing Lab: [place] [id number] [facility] ANTI-HEP C(EIA) HEPATITIS C VIRUS AB [PRESENCE] IN SERUM NEGATIVE 12/31 Specimen Type: SERUM No comment entered. Ordering Provider: Angy GUERRERO Report Released Date/Time: Dec 31, 2022 01:23 PM Reporting Lab: [facility] [address] Performing Lab: [place] [address] [facility] HIV AG/AB SCREEN HIV 1+2 AB+HIV1 P24 AG [PRESENCE] IN SERUM OR PLASMA BY IMMUNOASSA Y NEGATIVE 12/31 Specimen Type: SERUM No comment entered. Ordering Provider: Angy GUERRERO Report Released Date/Time: Dec 31, 2022 01:23 PM Reporting Lab: [facility] [address] Performing Lab: [facility] [address] [facility] SYPHILIS ANTIBODY SYPHILIS SCREEN TEST STATUS CPHS NEGATIVE 12/31 Specimen Type: SERUM No comment entered. Ordering Provider: Angy GUERRERO Report Released Date/Time: Dec 31, 2022 01:23 PM Reporting Lab: [facility] [address] Performing Lab: [facility] [address] [facility] PROLACTI N PROLACTIN [MASS/VOLU ME] IN SERUM OR PLASMA BY IMMUNOASSA Y 2.51 ng/mL <26.53 - 26.53 10/29 Specimen Type: PLASMA No comment entered. Ordering Provider: Angy GUERRERO Report Released Date/Time: Oct 25, 2022 04:35 PM Reporting Lab: [facility] [address] Performing Lab: [facility] [address] [place] [facility] Encounters Combined list of: 1) Encounters from Department of Veterans Affairs facilities going back up to thelast 18 months. 2) Encounters from the Department of Defense facilities going back up to 280 months. Location Location Details Encounter Type Encounter Number Reason For Visit Attending Provider ADM Date DC Date Status Disposition Source [employer](IEP Hearing Conservat ion) OUTPATIENT [id number] LESLY CHRISTENSEN 04/09 Released w/o Limitations [employer](I EP Hearing Conserv ation) [employer](RE C Post Immunizat ion) OUTPATIENT [id number] IET PPD JOANNE TABARES 04/10 Released w/o Limitations [employer](M AHC Post Immuniz ation) [employer](RE C Post Immunizat ion) OUTPATIENT [id number] IET IMMUNIZ ATIONS LISSETT VERMA 04/13 Released w/o Limitations [employer](M AHC Post Immuniz ation) [employer](TMC Ambulator y) OUTPATIENT [id number] rtd MARCY ESPINOZA 06/05 Released with Work/Duty Limitations [employer](T MC Ambulat ory) [employer](TMC Ambulator y) OUTPATIENT [id number] SAM MCKEON 06/14 Released with Work/Duty Limitations [employer](T MC Ambulat ory) [facility]) OUTPATIENT [id number] SELF CARE CLASS [place] 06/30 Released w/o Limitations [facility]) [facility]) OUTPATIENT [id number] right knee pain for 5 days DEJA GARCIA 07/12 Released with Work/Duty Limitations [facility](Fami ly Practic e Combine d) [facility]) OUTPATIENT [id number] l HIP BACK PAIN BRETT RIVAS Leola 07/23 Released with Work/Duty Limitations [facility](Fami ly Practic e Combine d) [facility]) OUTPATIENT [id number] L hip pain BANDAR JASMINE Henrik 08/12 Released with Work/Duty Limitations [facility](Fami ly Practic e Combine d) PERE[facility] Berrios([facility]) OUTPATIENT [id number] broken nose DEJA GARCIA 08/16 Released with Work/Duty Limitations [facility](Fami ly Practic e Combine d) [facility](Hear ing Conservat ion SRP) OUTPATIENT [id number] in-proc essing/ pcs HALINAAIME Sherine 09/20 Released w/o Limitations [facility](He aring Conserv ation [facility]) [facility]) OUTPATIENT [id number] Inproce gabriellang ROM CORADO 09/21 Released w/o Limitations [facility]) [facility]) OUTPATIENT [id number] GERALD Galeano 10/13 Released with Work/Duty Limitations [facility]) [facility](Immi gration Phys Exam) OUTPATIENT [id number] possibl e sinus infecti on [facility] 11/03 Released w/o Limitations [facility](Im migrati on Phys Exam) [facility](Immi gration Phys Exam) OUTPATIENT [id number] back pain/wr ist pain possibl e referra l [facility] 11/16 Released with Work/Duty Limitations [facility](Im migrati on Phys Exam) [facility](Occu pational Therapy) OUTPATIENT [id number] joint pain, localiz ed in the wrist CLARY NDIAYE 12/07 Released w/o Limitations [facility](Oc cupatio nal Therapy ) [facility](Immi gration Phys Exam) OUTPATIENT [id number] crack on left foot [facility] 12/24 Released w/o Limitations [facility](Im migrati on Phys Exam) [facility](Immi gration Phys Exam) OUTPATIENT [id number] asthma evaluat ion SANDRAJENNIFERGERALD W 03/16 Released w/o Limitations [facility](Im migrati on Phys Exam) [facility](Immi gration Phys Exam) OUTPATIENT [id number] back pain JENNIFER FLORESREY W 06/01 Released with Work/Duty Limitations [facility](Im migrati on Phys Exam) [facility](Immi gration Phys Exam) OUTPATIENT [id number] follow up SANDRA GERALD W 06/28 Released with Work/Duty Limitations [facility](Im migrati on Phys Exam) [facility](Phys ical Therapy Tran) OUTPATIENT [id number] VICTOR HUGO RODRIGUEZ 06/29 Released with Work/Duty Limitations [facility](Ph ysical Therapy Tran ) [facility](Phys ical Therapy Tran) OUTPATIENT [id number] MARTINSJEMMA BLANTON III 07/06 Released w/o Limitations [facility](Ph ysical Therapy Tran ) [facility](Immi gration Phys Exam) OUTPATIENT [id number] pap CANDACE CORDOVA 07/12 Released w/o Limitations [facility](Im migrati on Phys Exam) [facility](Phys ical Therapy Tran) OUTPATIENT [id number] MARTINSJEMMA PINA III 07/13 Released w/o Limitations [facility](Ph ysical Therapy Tran ) [facility](Phys ical Therapy Tran) OUTPATIENT [id number] MARTINSQUIN [facility] 07/15 Released w/o Limitations [facility](Ph ysical Therapy Tran ) [facility](Immi gration Phys Exam) TELE CONSULT [id number] lab result CANDACE CORDOVA 07/15 [facility](Im migrati on Phys Exam) [facility](Epid emiology) TELE CONSULT [id number] CT (+) JAMEL DE LA O 07/19 [facility](Ep idemiol ogy) [facility](Epid emiology) OUTPATIENT [id number] ACUTE/P T JAMEL DE LA O 07/25 Released w/o Limitations [facility](Ep idemiol ogy) [facility](Immi gration Phys Exam) OUTPATIENT [id number] lower back/po ssible ortho referra GERALD [place] 08/10 Released with Work/Duty Limitations [facility](Im migrati on Phys Exam) [facility](Phys ical Medicine [place]) OUTPATIENT [id number] 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 DEMETRIUS LAWTON 09/02 Released w/o Limitations [facility](Ph ysical Medicin e [place]) [facility](Immi gration Phys Exam) OUTPATIENT [id number] F/U MRI GERALD FLORES 09/20 Released with Work/Duty Limitations [facility](Im migrati on Phys Exam) [facility](Immi gration Phys Exam) OUTPATIENT [id number] back pain CHAVO, MARIAM Lees 10/31 Released w/o Limitations [facility](Im migrati on Phys Exam) [facility](Orth opedics Spine) OUTPATIENT [id number] 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, first spine per referra MIGNON Saleh 11/15 Released with Work/Duty Limitations [facility](Or thopedi cs Spine) [facility](Eduardo ology/Hea ring Conservat ion) OUTPATIENT [id number] Periodi STEVAN Durán 11/18 Released w/o Limitations [facility](Au diology /Hearin g Conserv ation) [facility](Phys ical Therapy) OUTPATIENT [id number] MEB ROM for L/S Spine RK, MAYA BROWN 11/21 Released w/o Limitations [facility](Ph ysical Therapy ) [facility](Opto metry [facility]) OUTPATIENT [id number] med physicRASHAD Kurtz 11/21 Released w/o Limitations [facility](Op tometry [facility]) [facility](Immi gration Phys Exam) OUTPATIENT [id number] phase II pe (meb) ADRIÁN KHAN 11/25 Released w/o Limitations [facility](Im migrati on Phys Exam) [facility](Immi gration Phys Exam) OUTPATIENT [id number] deviate d nasal septum CANDACE CORDOVA 12/16 Released w/o Limitations [facility](Im migrati on Phys Exam) [facility](Immi gration Phys Exam) OUTPATIENT [id number] knee pain (deplet ed reflexe s) BANDAR FREED 01/19 Released w/o Limitations [facility](Im migrati on Phys Exam) [facility](Immi gration Phys Exam) OUTPATIENT [id number] referra l for sleep study SHANNAN LOPEZ 01/20 Released w/o Limitations [facility] [place](Im migrati on Phys Exam) [facility] [place](Movie Theater Manager al Medicine) TELE CONSULT [id number] Per TDRL require ments SONIA SAEZ 03/15 [facility] [place](Inte rnal Medicin e) [facility] OUTPATIENT [id number] TDRL SONIA SAEZ 04/10 Released w/o Limitations [facility] [place](AMH M01D [place]) [facility] [place](P T Clinic) OUTPATIENT [id number] ROM FOR TDRL ROM ARIZMENDI 04/10 Released w/o Limitations [facility] [place](P T Clinic) [facility] HC PRO PHONE CALL 5-10 MIN [id number] Diagnos is: ICD-10- CM Z13.89 Encount er for screeni ng for other disorde r
RENO QUACH 08/20 SAMEER MONTES [facility] Outpatient Encounter [id number] 08/20 [place] [facility] OFF[facility] O/P EST HI 40-54 MIN [id number] Diagnos is: ICD-10- CM R53.82 Chronic fatigue , unspeci fied
LEOPOLDO GUERRERO L 09/03 [place] [facility] Outpatient Encounter [id number] 09/04 [place] [facility] NEUROMUSCU LAR REEDUCATIO N [id number] Diagnos is: ICD-10- CM M25.552 Pain in left hip<br/ > SANTANA STEELE L 09/04 [facility] OFFICE O/P NEW LOW 30-44 MIN [id number] Diagnos is: ICD-10- CM H52.03 Hyperme tropia, bilater al
YUAN DAVIS M 09/18 [facility] Outpatient Encounter [id number] 09/27 [facility] OFFICE O/P NEW MOD 45-59 MIN [id number] [id number] Diagnos is: ICD-10- CM K58.2 Mixed irritab le bowel syndrom e
Sherine HOLM ISAAC R 09/27 [facility] Outpatient Encounter [id number] 10/08 [facility] PSYCH DIAG EVAL W/MED SRVCS [id number] Diagnos is: ICD-10- CM F41.9 Anxiety disorde r, unspeci fied
[place],AB IGAIL E 10/09 [place] [facility] Outpatient Encounter [id number] 10/14 [place] [facility] [place] [facility] Outpatient Encounter [id number] 10/15 [place] [facility] [place] [facility] SELF CARE MNGMENT TRAINING [id number] Diagnos is: ICD-10- CM M25.552 Pain in left hip<br/ > SANTANA STEELE L 10/16 [facility] [place] [facility] OFFICE O/P EST MOD 30-39 MIN [id number] Diagnos is: ICD-10- CM R09.81 Nasal congest ion<br/ > ALBERTO ESTRADA 10/16 [facility] [place] [facility] Outpatient Encounter [id number] 10/16 [facility] OFF[facility] O/P EST LOW 20-29 MIN [id number] Diagnos is: ICD-10- CM L70.8 Other acne
CESAR LEOPOLDO L 10/25 [facility] [place] [facility] Outpatient Encounter [id number] 10/28 [facility] [place] [facility] Outpatient Encounter [id number] 11/13 [facility] [place] [facility] Outpatient Encounter [id number] 11/18 [facility] [place] [facility] MANUAL THERAPY 1/> REGIONS [id number] Diagnos is: ICD-10- CM M25.552 Pain in left hip<br/ > SANTANA STEELE L 11/20 [facility] OFFICE O/P EST HI 40-54 MIN [id number] Diagnos is: ICD-10- CM F41.9 Anxiety disorde r, unspeci fied
[place],AB IGAIL E 11/28 [facility] [place] [facility] Outpatient Encounter [id number] SHAHANA NGUYEN 12/09 [place] [facility] [place] [facility] Outpatient Encounter [id number] 12/11 [place] [facility] [place] [facility] OFFICE O/P EST LOW 20-29 MIN [id number] Diagnos is: ICD-10- CM R09.81 Nasal congest ion<br/ > ARDENBRIANNA MayoG 12/13 [place] [facility] [place] [facility] Outpatient Encounter [id number] 12/17 [facility] [place] [facility] MANUAL THERAPY / REGIONS [id number] Diagnos is: ICD-10- CM M25.552 Pain in left hip<br/ > SANTANA STEELE 12/24 [facility] [place] [facility] Outpatient Encounter [id number] 12/26 [place] [facility] [place] [facility] Outpatient Encounter [id number] 12/26 [facility] [place] [facility] OFFICE O/P EST MOD 30-39 MIN [id number] [id number] Diagnos is: ICD-10- CM E66.01 Morbid (severe ) obesity due to excess calorie s
LEOPOLDO GUERRERO 12/31 [facility] [place] [facility] Outpatient Encounter [id number] 01/01 [place] [facility] [place] [facility] Outpatient Encounter [id number] 01/16 [facility] [place] [facility] OFFICE O/P EST HI 40-54 MIN [id number] [id number] Diagnos is: ICD-10- CM F41.9 Anxiety disorde r, unspeci fied
[place],AB IGAIL E 01/16 [place] [facility] [place] [facility] Outpatient Encounter [id number] 01/30 [place] [facility] [place] [facility] Outpatient Encounter [id number] 02/04 [place] [facility] OFFICE O/P EST LOW 20-29 MIN [id number] [id number] Diagnos is: ICD-10- CM F90.0 Attn-de fct hyperac tivity disorde r, predom inatten tive type
CHINVEGA I,OSEAST A 02/12 [facility] [place] [facility] Outpatient Encounter [id number] 03/19 [place] [facility] [place] [facility] Outpatient [facility]counter [id number] 03/20 [place] [facility] [place] [facility] Outpatient Encounter [id number] 04/03 [place] [facility] [place] [facility] Outpatient Encounter [id number] 04/04 [place] [facility] [place] [facility] Outpatient Encounter [id number] SA RA Nata BRITT 04/07 [place] [facility] [place] [facility] Outpatient Encounter [id number] 04/08 [place] [facility] [place] [facility] Outpatient Encounter [id number] RASHID GANNONIDA A 04/08 [place] [facility] [place] [facility] Outpatient Encounter [id number] 04/22 [place] [facility] [place] [facility] Outpatient Encounter [id number] 04/23 [place] [facility] [place] [facility] Outpatient Encounter [id number] 04/30 [place] [facility] [place] [facility] Outpatient Encounter [id number] 05/07 [place] [facility] [place] [facility] Outpatient Encounter [id number] 05/28 [place] [facility] [place] [facility] Outpatient Encounter [id number] 05/29 [place] [facility] [place] [facility] OFF/OP CNSLTJ NEW/EST MOD 40 [id number] Diagnos is: ICD-10- CM M54.50 Low back pain, unspeci fied
AUSTIN ISABEL 06/02 [facility] QNHP OL DIG ASSMT&MGMT 11-20 [id number] Diagnos is: ICD-10- CM E66.01 Morbid (severe ) obesity due to excess calorie s
MARIA LUZ GTAES 06/03 [place] [facility] [place] [facility] Outpatient Encounter [id number] GOGO TAVERAS 06/04 [place] [facility] [place] [facility] Outpatient Encounter [id number] 06/09 [place] [place] [facility] Outpatient Encounter [id number] 06/10 [place] [facility] [place] [facility] Outpatient Encounter [id number] 06/23 [place] [facility] [place] [facility] OFFICE O/P EST MOD 30 MIN [id number] [id number] Diagnos is: ICD-10- CM J34.2 Deviate d nasal septum< br/> VAL PIERCE 06/25 [place] [facility] [place] [facility] Outpatient Encounter [id number] 06/29 [place] [facility] [place] [facility] Outpatient Encounter [id number] 07/17 [place] [facility] [place] [facility] Outpatient [facility]counter [id number] 07/20 [place] [facility] [place] [facility] Outpatient Encounter [id number] SA RA Nata BRITT 07/20 [place] [facility] [place] [facility] Outpatient Encounter [id number] 07/21 [place] [facility] [place] [facility] Outpatient Encounter [id number] 07/21 [place] [facility] [place] [facility] HC PRO PHONE CALL 11-20 MIN [id number] [id number] Diagnos is: ICD-10- CM O09.521 Supervi ozzie of elderly multigr avida, first trimest er
STEVE SOLOMON 07/21 [place] [facility] [place] [facility] Outpatient Encounter [id number] 07/21 [place] [facility] [place] [facility] Outpatient Encounter [id number] Kajal MCDONALD 07/22 [place] [facility] [place] [facility] Outpatient Encounter [id number] 07/22 [place] [facility] [place] [facility] Outpatient Encounter [id number] 08/07 [place] [facility] [place] [facility] Outpatient Encounter [id number] 08/11 [place] [facility] [place] [facility] HC PRO PHONE CALL 5-10 MIN [id number] Diagnos is: ICD-10- CM O09.521 Supervi ozzie of elderly multigr avida, first trimest er
STEVE SOLOMON 09/04 [place] [place] [facility] HC PRO PHONE CALL 5-10 MIN [id number] Diagnos is: ICD-10- CM O09.521 Supervi ozzie of elderly multigr avida, first trimest er
SOLOMON, STEVE K 09/07 [place] [facility] [place] [facility] Out[place] Encounter [id number] 09/23 [place] [facility] [place] [facility] Outpatient Encounter [id number] 09/23 [place] [facility] [place] [facility] HC PRO PHONE CALL 5-10 MIN [id number] Diagnos is: ICD-10- CM O09.522 Supervi ozzie of elderly multigr avida, second trimest er
SOLOMON, STEVE K 10/28 [place] [facility] [place] [facility] Outpatient Encounter [id number] 10/29 [place] [facility] [place] [facility] HC PRO PHONE CALL 5-10 MIN [id number] Diagnos is: ICD-10- CM O09.523 Supervi ozzie of elderly multigr avida, third trimest er
SOLOMON, STEVE K 01/05 [place] [facility] [place] [facility] HC PRO PHONE CALL 5-10 MIN [id number] Diagnos is: ICD-10- CM O09.523 Supervi ozzie of elderly multigr avida, third trimest er
SOLOMON, STEVE K 01/13 [place] [facility] Procedures Combined list of: 1) Procedures from Department of Veterans Affairs facilities going back up to thelast 18 months, not all VA non-surgical procedures are included; 2) All procedures from the Department of Defense facilities. Procedure Procedure Type Code Date Perfomer Comments Yana e Range Of Motion Evaluation Of Extremity Range Of Motion Evaluation Of Extremity 20250 2 ROM SALAZAR [facility] Psychotherapy Individual Approximately 30 Minutes Psychotherapy Individual Approximately 30 Minutes 20535 9 MANSOOR TOLBERT Range Of Motion Evaluation Of Extremity Range Of Motion Evaluation Of Extremity 42732 9 MAYA BECKMAN [facility] Testing Audiometry Group Testing 16091 9 STEVAN TAYLOR [facility] Modalities Heat Hot Packs Modalities Heat Hot Packs 03845 9 [facility] Physical Medicine - Group Physical Therapy Se ion Physical Medicine - Group Physical Therapy Session 24955 9 [facility] Modalities Heat Hot Packs Modalities Heat Hot Packs 00670 9 [facility] Physical Medicine - Group Physical Therapy Se ion Physical Medicine - Group Physical Therapy Session 78075 9 [facility] Screening papanicolaou smear; obtaining, preparing and conveyance of cervical or vaginal smear to laboratory 9 CANDACE CORDOVA [facility] Clinical Social Work Individual Outpatient Counseling 45 Minutes Clinical Social Work Individual Outpatient Counseling 45 Minutes 89941 9 CASSIDY MONTES [facility] Physical Therapy: ___ Se ion Segments, 15 Minutes Each Physical Therapy: ___ Session Segments, 15 Minutes Each 53489 9 [facility] Modalities Heat Hot Packs Modalities Heat Hot Packs 38053 9 [facility] Physical Medicine - Group Physical Therapy Se ion Physical Medicine - Group Physical Therapy Session 07771 9 [facility] Patient Counseling Medical Management Individual Patient Patient Counseling Medical Management Individual Patient 03519 9 GERALD FLORES [facility] A e /Interv Discharge Meds Reconciled W/ Current Meds List 9 GERALD FLORES [facility] Physical Therapy Service Evaluation Physical Therapy Service Evaluation [id number] VICTOR HUGO LAWRENCE [facility] Phys Therapy Education Self Care Training - Per 15 Minutes Phys Therapy Education Self Care Training - Per 15 Minutes [id number] VICTOR HUGO LAWRENCE [facility] Psychiatric Diagnostic Evaluation Comprehensive Examination Psychiatric Diagnostic Evaluation Comprehensive Examination [id number] CASSIDY MONTES [facility] Patient Training And Self-Care Skills Patient Training And Self-Care Skills 14419 9 GERALD FLORES [facility] Patient Counseling Medical Management Individual Patient Patient Counseling Medical Management Individual Patient [id number] 9 GERALD FLORES A e /Interv Discharge Meds Reconciled W/ Current Meds List 9 GERALD FLORES Patient Counseling Medical Management Individual Patient Patient Counseling Medical Management Individual Patient [id number] 8 GERALD FLORES A e /Interv Discharge Meds Reconciled W/ Current Meds List 8 GERALD FLORES A isted Exercises For ROM Assisted Exercises For ROM 37435 8 CLARY NDIAYE Occupational Therapy Evaluation Occupational Therapy Evaluation 82998 8 CLARY NDIAYE Oropharynx Culture Streptococcus Group A Beta Hemolytic Oropharynx Culture Streptococcus Group A Beta Hemolytic 00297 8 GERALD FLORES Physician Supervised Injection Intramuscular Antibiotic Physician Supervised Injection Intramuscular Antibiotic 10859 8 GERALD FLORES Audiometry Group Testing Audiometry Group Testing 69975 8 AIME MEADE Physician Supervised Services Provision Of Educational Supplies Physician Supervised Services Provision Of Educational Supplies 28599 8 LOS HART Threshold Audiogram (Pure Tone) Threshold Audiogram (Pure Tone) 26379 8 LESLY CHRISTENSEN Audiometry Group Testing Audiometry Group Testing 13666 8 LESLY CHRISTENSEN Special Physician Services Analysis Of Computerized Data Special Physician Services Analysis Of Computerized Data 86696 8 LESLY CHRISTENSEN Physician Supervised Services Provision Of Special Supplies Physician Supervised Services Provision Of Special Supplies 17426 8 LESLY CHRISTENSEN Physician Supervised Group Educational Services 8 LESLY CHRISTENSEN Ear mold/insert, not disposable, any type 8 LESLY CHRISTENSEN Ear Protector Attenuation Measurements Ear Protector Attenuation Measurements 89780 8 LESLY CHRISTENSEN Skin Test Anergy Tuberculin Intradermal Skin Test Anergy Tuberculin Intradermal 08719 8 JOANNE TABARES Hepatitis A Vaccine Adult Dosage (Intramuscular Use) Hepatitis A Vaccine Adult Dosage (Intramuscular Use) 93188 8 GUSTAVO VELOZ [facility] Vaccines Viral Polio, Inactivated Vaccines Viral Polio, Inactivated 54570 8 GUSTAVO VELOZ [facility] Meningococcal Polysaccharide Vaccine Meningococcal Polysaccharide Vaccine 97608 8 GUSTAVO VELOZ [facility] Immunization Administration By Injection, Each Additional Vaccine 8 GUSTAVO VELOZ [facility] Td Vaccine Td Vaccine 87245 8 GUSTAVO VELOZ [facility] Immunization Administration By Injection, One Vaccine Immunization Administration By Injection, One Vaccine 36832 8 GUSTAVO VELOZ [facility] Social History Combined list of available smoking, tobacco, and other social history from Department of Defense and [facility] facilities. Social History Type Response Date Comment Sourc e Tobacco smoking status [facility] < 5 YRS 07/22/2023 [facility] History of tobacco use [facility] TOBACCO SM OKES DOES NOT 07/22/2023 [facility] History of tobacco use [facility] 06/06/2022 [facility] History of tobacco use PREVIOUS SMOKER 11/21/2021 [facility] History of tobacco use [facility] 09/06/2021 [facility] History of tobacco use [facility] DAY 11/03/2020 [facility] History of tobacco use [facility] [place] 30 MIN OF WAKEUP 05/06/2018 [facility] This section is an empty social history section. [facility] Plan of Care List of future care activities from Department of [facility] facilities. Additional future care activities may be listed in the Assessment and Plan section. Date/Time Care Activity Care Activity Detail Facili ty 04/13/2024 AMBULATORY - NONE AMBULATORY - NONE [facility] 02/18/2024 Laboratory - [facility]outs [facility] Order CBC and DIFF BLOOD SP ONCE [facility] 02/18/2024 Laboratory - [facility]outs [facility] Order PROTHROMBIN TIME/INR PLASMA SP ONCE [facility] 02/18/2024 Laboratory - [facility] Order ACT PART THROMBO TIME PLASMA SP ONCE [facility] 02/18/2024 Laboratory - [facility]outs [facility] Order HEMOGLOBIN A1C BLOOD SP ONCE [facility] 02/18/2024 Laboratory - [facility] Order BASIC METABOLIC PANEL+MG PLASMA SP ONCE [facility] 03/04/2024 Laboratory - [facility]outs [facility] Order HCG, QUAL URINE SP ONCE [facility]
--- OUTSIDE RECORDS SUMMARY | 2024-02-22 16:30 | XMS_ITS | Referral Summary ---
Author Organization [facility] Address [address] [place] [address] Care Team Providers Care Medical Transcriptionist Name Role Phone Unavailable Primary Care Provider Unavailabl e Source Comments Patient records contain information from all sites at [facility]. For routine questions regarding patient records, call [phone] during business hours, M-F 8:00 AM - 5:00 PM Central Time. Record requests for emergency care only can be directed to [phone] at any time.[facility] Allergies No known active allergies Medications [...] B-12 ORAL) Take by mouth. Active prenat.vits,kandy, qwm-knzb-ztaid tablet Take 1 tablet by mouth daily. 07/17/2023 Active Active Problems Patient Care Coordination No te Formatting of this note migh t be different from the original. Boyfrienmary Ulloa. His first baby! She is moving [facility] during the (likely summertime) Problem Noted Date Diagnosed Date Complication Morbid Obesity Body Mass Index Greater Than 40 08/13/2023 Body Mass Index 50.0 To 59.9 Adult 08/13/2023 Elderly Multigravida Greater Than 35 Y ear Old 08/13/2023 Overview (08/13/2023): Desires NIP Panorama, scheduled 08/20/23 Preexisting Hypertension 08/13/2023 Overview (08/13/2023): Baseline preeclampsia labs collected at [facility] OB Will begin 81 mg ASA at 12 weeks Depression Anxiety 08/13/2023 High Risk 08/13/2023 Overview (08/13/2023): BMI >50 Chronic HTN Elderly multigravida Anxiety/depression We discussed advanced level US, SEBASTIAN consult. She is very likely moving to [facility], and will be transferring her care [...] In the past 12 months has e [employer], gas, oil, or water company threatened to [...] Type Associated Problems Recent Progress Patient-Stated? Author [facility] Care Plan for Healthy Care Plan [facility] Care Plan for Healthy No Support, [employer] - Nicotine Dependency Chronic Care Plan [facility] Care Plan for Healthy No Support, [...] S Negative Negative 08/14/2023 10:25 AM CDT [facility] Comment: Consumption of high-dose biotin supplement within 12 hours of blood collection for this test can cause false-negative results. Blood (Blood, Venous) 08/13/2023 4:52 PM CDT 08/14/2023 7:24 AM CDT us Loreta Ramirez APRN, C.N.P. LAB MICROBIOLOGY - BLO OD ORDERABLES Final Result [facility] [address] [place] [address] [facility] [place][note 2] [address] [place] [address] * HIV-1/-2 Ag and Ab Scrn, Plasma [...] MICROBIOLOGY - BLO OD ORDERABLES Final Result [facility] [address] [place] [address], [place] ECLR in [place] [address] [place] [address] from Last 3 Months or Most Recently Relevant to Health Maintenance Additional Health Concerns Active Problems Noted Date Diagnosed Date [facility] Care Plan for Healthy 08/30 Insurance [facility]
--- OUTSIDE RECORDS SUMMARY | 2024-02-22 16:30 | XMS_ITS | Referral Summary ---
Author Organization [facility] Address [address] [place] [address] Care Team Providers Care Escrow Manager Name Role Phone No Ref-Primary, Physician [...] Plan of Treatment Not on file Insurance [facility] [place] [address] [place] Care Teams Escrow Manager Relationship Specialty Start Date End Date No Ref-Primary, Physician PCP - General 10/20/23
--- OUTSIDE RECORDS SUMMARY | 2024-02-22 16:30 | XMS_ITS | Clinical Summary ---
Author Organization [facility] Address [address] [place] [address] Care Team Providers Care Interface Analyst Name Role Phone Unavailable Primary Care Provider [...] for each transition of care or referral. [facility] Social History Tobacco Use Types Packs/Day Years [...] this topic Kailey Jackson Personal/Family Self 1990 [id number] [address] [place] [id number] Kailey Jackson Workers Comp Self 1990 [address] [place] [id number]
--- OUTSIDE RECORDS SUMMARY | 2024-02-22 16:30 | XMS_ITS | Clinical Summary ---
Author Organization [facility] Address [address] [place] [address] Care Team Providers Care Business Insight And Analytics Manager Name Role Phone Unavailable Primary Care Provider Unavailabl e Source Comments Patient records contain information from all sites at [facility]. For routine questions regarding patient records, call [phone] during business hours, M-F 8:00 AM - 5:00 PM Central Time. Record requests for emergency care only can be directed to [phone] at any time.[facility] Allergies No known active allergies Medications pyridoxine [...] B-12 ORAL) Take by mouth. Active prenat.vits,kandy, enc-uzwc-cxsvg tablet Take 1 tablet by mouth daily. 07/17/2023 Active Active Problems Patient Care Coordination No te Formatting of this note migh t be different from the original. Boyfrienmary Ulloa. His first baby! She is moving [facility] during the (likely summertime) Problem Noted Date Diagnosed Date Complication Morbid Obesity Body Mass Index Greater Than 40 08/13/2023 Body Mass Index 50.0 To 59.9 Adult 08/13/2023 Elderly Multigravida Greater Than 35 Y ear Old 08/13/2023 Overview (08/13/2023): Desires NIP Panorama, scheduled 08/20/23 Preexisting Hypertension 08/13/2023 Overview (08/13/2023): Baseline preeclampsia labs collected at [facility] OB Will begin 81 mg ASA at 12 weeks Depression Anxiety 08/13/2023 High Risk 08/13/2023 Overview (08/13/2023): BMI >50 Chronic HTN Elderly multigravida Anxiety/depression We discussed advanced level USSEBASTIAN consult. She is very likely moving to [facility], and will be transferring her care [...] 0.6 oz pur e alcohol) [facility] Utilities Answer Date Recorded In the past 12 months has [employer], gas, oil, or water company [...] 2023 3, 12/09/2011, 06/04/2011, Additional history exists Office Visit for Blood Pressure Check / [...] patient's age to complete this topic RSV vaccine - (32-36 weeks) or 60+ years (No Doses Required) Completed Goals Goal Patient Goal Type Associated Problems Recent Progress Patient-Stated? Author [facility] Care Plan for Healthy Care Plan [facility] Care Plan for Healthy No Support, [employer] [facility] - Nicotine Dependency Chronic Care Plan [facility] Care Plan for Healthy No Support, [employer] [...] S Negative Negative 08/14/2023 10:25 AM CDT [facility] Comment: Consumption of high-dose biotin supplement within 12 hours of blood collection for this test can cause false-negative results. Blood (Blood, Venous) 08/13/2023 4:52 PM CDT 08/14/2023 7:24 AM CDT us Loreta Ramirez APRN, C.N.P. LAB MICROBIOLOGY - BLO OD ORDERABLES Final Result [facility] [address] [place] [address] [facility] [address] [place] [address] * HIV-1/-2 Ag and Ab Scrn, Plasma [...] MICROBIOLOGY - BLO OD ORDERABLES Final Result [facility] [address] [place] [address], [facility] ECLR [facility] in [address] [address] from Last 3 Months or Most Recently Relevant to Health Maintenance Additional Health Concerns Active Problems Noted Date Diagnosed Date [facility] Care Plan for Healthy 08/30 Insurance [facility]
--- OUTSIDE RECORDS SUMMARY | 2024-02-22 16:30 | XMS_ITS ---
Author Organization [facility] Address [address] [place] [address] Care Team Providers Care Upstream Biomanufacturing Technician Name Role Phone Unavailable Unavailable Unavailable Surgery Details Not on file Complications Check Surgery Details section. Procedure Estimated Blood Loss Check Surgery Details section. Procedure Findings Check Surgery Details section. Procedure Specimens Taken Check Surgery Details section.
--- OUTSIDE RECORDS SUMMARY | 2024-02-22 16:30 | XMS_ITS | Clinical Summary ---
Author Organization [facility] Address [address] [place] [address] Care Team Providers Care Used Car Sales Manager Name Role Phone No Ref-Primary, Physician [...] to complete this topic Insurance [place] [id number] [facility] [place] [address] [facility] Care Teams Used Car Sales Manager Relationship Specialty Start Date End Date No Ref-Primary, Physician PCP - General 10/20/23
--- OUTSIDE RECORDS SUMMARY | 2024-02-22 16:30 | XMS_ITS | Clinical Summary ---
Author Organization [facility] Address [place], [place] [address] Care Team Providers Care Director Of Recreation Therapy Name Role Phone Beata Mastersonla Primary Care Provider Allergies No known active allergies Medications Medication Sig Dispensed Refills Start Date End Date Status NIFEdipine ER (ADALAT CC) 30 mg extended-Release tablet Take 1 Tablet by mouth once daily. 07/19/2022 Active famotidine (PEPCID) 20 mg tabletIndications:Ga stroesophageal reflux disease, unspecified whether esophagitis present Take 1 Tablet (20 mg) by mouth two times daily. 60 Tablet 07/17/2023 Active Fubxvflq-Yz-Pfo-Fe-F A tab tabletIndications:Va ginal bleeding in Take [...] 08/06/23, provider advised to discuss with her Loda PACK PULLER provider) Chronic fatigue 05/07/2016 Overview (09/09/2017): 09/09/2017: Cardiology evaluation. Benign palpitations. Vitamin D deficiency 10/30/2012 Overview (06/20/2017): VITAMIN D TOTAL Date Value Ref Range Status 06/19/2017 22.9 (L) 30.0 - 80.0 ng/mL Final 10/17/2015 30.1 30.0 - 80.0 ng/mL Final 10/29/2012 18.4 (L) 30.0 - 80.0 ng/mL Final 06/20/2017: [place] 49491 IU twice weekly x8 weeks, vit d [...] Bottle feeding. GBS - neg Guerline Jackson [[id number]] GEOVANY 12/30/2011 (05/02/11 to present) [facility] Date: [birth year] Age (as of 08/12/11): 21 Race/Ethnicity: Not /Not History: Estimated Date of Delivery: 12/30/11 Gestational Age: 20w0d Blood Type: O Rh Positive Patient Address Address Home Phone Email [address] [phone] [email or web address] [place] [phone] Patient Background Race/Ethnicity Marital Status Not /Not [...] safety in , and recommended care. Reviewed [facility]'s Preparing for Class Schedule. 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 Progress Notes (Episode) 07/22/2011 GA: 17w0d Doing much better today. Was seen on 07/18 for abdominal tightening/cramping. Now is back to normal. Ultrasound was fine on Friday. Declines quad screen today. No movement yet. No bleeding. Feeling well otherwise PLAN: -- Follow up in 3 weeks -- 20 week ultrasound around that time. -- Ikak-ki-moci for chlamydia today Lary Aguilera MD .................... [...] 7. Baby's care provider (Please use notes), [place] [facility] / Rooming in, Circumcision 8. Brochures [...] screen, but probably not -- Will need jhqm-as-bzch for chlamydia next month. 06/04/2011 10w1d First [...] Description 12/31/2023 2:00 PM CDT Office Visit [facility] [address] [place] [address] Moe Mendez NP Sinus Problem (Patient presents with pressure, cough,. Has been going on for x 1 week /) 12/31/2023 Travel 12/17/2023 Travel 11/27/2023 2:00 PM CDT Office Visit [facility] [address] [place] [address] Moe Mendez NP UTI (patient presents with burning upon urination and she states that it feels like she isn't fully emptying her bladder- symptoms began 1 week ago. patient is 25 weeks ) 11/27/2023 Travel 11/25/2023 4:05 PM CDT Office Visit [facility] [address] [place] [address] Monica Reyes PA Derm Problem (wart between [...] st Contact Info) Description 04/14/2024 2:30 PM INSTRUMENT REPAIRER HELPER Telemedicine [facility] [address] [place] [address] Valencia Barraza, YUAN [address] [place] [address] Health Maintenance Due Date Last Done Comments [...] 2:01 PM CDT Vaginal pain Urethritis, nonspecific ULTRASOUND COORDINATOR THIN PREP PAP SCREEN IMAGED Routine 05/29/2023 3:02 PM INSTRUMENT REPAIRER HELPER Screening for malignant neoplasm of cervix ANTI HIV 1/2 Routine 12/27/2019 4:02 PM CDT Screening examination for venereal disease ANTI HCV Routine 12/27/2019 4:02 PM CDT Screening examination for venereal disease from Last 3 Months or Most Recently Relevant to Health Maintenance Results * URINE CULTURE (11/27/2023 2:01 PM CDT) CULTURE 10-50,000 CFU/mL of multiple organisms, probable contaminants 11/28/2023 5:41 PM CDT [facility] Urine URINE SPECIMEN / Unknown Non-Blood / Unknown 11/27/2023 2:01 PM CDT 11/27/2023 2:01 PM CDT Moe Mendez NP [facility] [address] [place] [address], * (ABNORMAL) UA W/ SEDIMENT EXAM REFLEXED PER CRITERIA (11/27/2023 2:01 PM CDT) COLOR Yellow Yellow Color 11/27/2023 2:07 PM CDT [facility] CLAR[facility] Clear Clear Clarity 11/27/2023 2:07 PM CDT [facility] SPECIFIC GRAVITY,URINE >=1.030(A) 1.010, 1.015, 1.020, 1.025 11/27/2023 2:07 PM CDT [facility] PH,URINE 6.0 6.0, 7.0, 8.0, 5.5, 6.5, 7.5, 8.5 11/27/2023 2:07 PM CDT [facility] UROBILINOGEN, QUALITATIVE Normal Normal EU/dl 11/27/2023 2:07 PM CDT [facility] PROTEIN, URINE Trace(A) Negative mg/dL 11/27/2023 2:07 PM CDT [facility] GLUCOSE, URINE Negative Negative mg/dL 11/27/2023 2:07 PM CDT [facility] KETONES,URINE Negative Negative mg/dL 11/27/2023 2:07 PM CDT [facility] BILIRUBIN,URI NE Negative Negative 11/27/2023 2:07 PM CDT [facility] OCCULT BLOOD,URINE Negative Negative 11/27/2023 2:07 PM CDT [facility] NITRITE Negative Negative 11/27/2023 2:07 PM CDT [facility] LEUKOCYTE ESTERASE Negative Negative 11/27/2023 2:07 PM CDT [facility] Urine URINE SPECIMEN / Unknown Non-Blood / Unknown 11/27/2023 2:01 PM CDT 11/27/2023 2:01 PM CDT Moe Mendez BRIDGE WORKER URINE [facility] [address] [place] [address], * (ABNORMAL) ULTRASOUND COORDINATOR THIN PREP PAP SCREEN IMAGED [[id number]] (05/29/2023 3:02 PM INSTRUMENT REPAIRER HELPER) Case Report Gynecologic Cytology Report Case: [id number] Authorizing Provider: Abiola Masterson DO Collected: 05/29/2023 1502 Ordering Location: [facility] Received: 05/29/2023 1537 Clinic First Screen: Jere Frode Pathologist: Sonia Nolasco MD Specimen: ULTRASOUND COORDINATOR ThinPrep Vial Screening, Cervical 06/06/2023 4:27 PM INSTRUMENT REPAIRER HELPER [facility] ENTRAL LABORATORY INTERPRETATION/ RESULT ATYPICAL SQUAMOUS CELLS OF UNDETERMINED SIGNIFICANCE (ASCUS)(A) (none) 06/06/2023 4:27 PM INSTRUMENT REPAIRER HELPER [facility] IMEN ADEQUACY Satisfactory for evaluation Endocervical component present 06/06/2023 4:27 PM INSTRUMENT REPAIRER HELPER [facility] HPV REQUEST HPV and PAP 06/06/2023 4:27 PM INSTRUMENT REPAIRER HELPER [facility] Date of LMP unknown 06/06/2023 4:27 PM INSTRUMENT REPAIRER HELPER [facility] Last Pap Date 12/27/19 06/06/2023 4:27 PM INSTRUMENT REPAIRER HELPER [facility] Last Pap Result LSIL 4:27 PM INSTRUMENT REPAIRER HELPER [facility] Abnormal Pap or [place] Bx in last 5 years Yes 06/06/2023 4:27 PM INSTRUMENT REPAIRER HELPER [facility] Menstrual Status Irregular Periods 06/06/2023 4:27 PM INSTRUMENT REPAIRER HELPER [facility] [place] Bx Done Today No 06/06/2023 4:27 PM INSTRUMENT REPAIRER HELPER [facility] Additional Information None given 06/06/2023 4:27 PM INSTRUMENT REPAIRER HELPER [facility] Comment: Cytology is screened at [facility] - [address], [place] [address] and [facility] - [address], [place] [address] and [facility] - [address] [place] [address] Interpreted at [facility] - [address], [place] [address] Automated Review Successful 06/06/2023 4:27 PM INSTRUMENT REPAIRER HELPER [facility] Comment:Specimen processed s uccessfully by automated structural steel detailer device, ThinPrep Imaging System, [employer] ANCILLARY TESTING ULTRASOUND COORDINATOR HPV Ordered, Please see separate report 06/06/2023 4:27 PM INSTRUMENT REPAIRER HELPER [facility] Note The pap test is [...] pre-malignant and malignant lesions. 06/06/2023 4:27 PM INSTRUMENT REPAIRER HELPER [facility] ENTRAL LAB[facility] Other (Cervical) Non-Blood / Unknown 05/29/2023 3:02 PM INSTRUMENT REPAIRER HELPER 05/29/2023 3:37 PM INSTRUMENT REPAIRER HELPER Abiola Masterson DO PATHOLOGY/CYTOLOGY [facility] [address] [place] [id number], [place] * ANTI HCV (12/27/2019 4:02 PM CDT) HEPATITIS C ANTIBODY Non-React vidal Non-React vidal 12/28/2019 3:55 PM CDT [facility] Comment:Antibodies to HCV no t detected; does not exclude the possibility of exposure to HCV. Blood BLOOD SPECIMEN / Unknown Butterfly / Unknown 12/27/2019 4:02 PM CDT 12/27/2019 4:06 PM CDT Yanet Alvarez MD SEND OUTS [facility] [address] [place] [address], [place] * ANTI HIV 1/2 (12/27/2019 4:02 PM CDT) HIV-1/HIV-2 ANTIBODY Non-Reacti ve Non-Reacti ve 12/28/2019 3:52 PM CDT [facility] Comment:HIV-1 p24 and HIV-1/ HIV-2 Ab not detected. Blood BLOOD SPECIMEN / Unknown Butterfly / Unknown 12/27/2019 4:02 PM CDT 12/27/2019 4:06 PM CDT Yanet Alvarez MD SEND OUTS [facility]AL LAB[facility] [address] [place] [address], from Last 3 Months or Most Recently [...] 8:21 PM 12/28/2011 11:54 PM Care Teams Director Of Recreation Therapy Relationship Specialty Start Date End Date Abiola Masterson DO [address] [place] [address] PCP - General Family Practice 04/14/23
--- NOTE | 2024-02-22 17:03 | W.PM.LDBA ---
Subjective History of Present Illness Date Seen: 02/22/24 Narrative: Patient is being admitted to Labor and Delivery for induction of labor. She is a 33 year old at 37 weeks, 1 day gestation. Her full history and physical was dictated by Dr. Durham on 02/10. Please see this for details. Specific Issues/Plans FOB: uncertain involvement. Son:Chris. Baby: Girl! # chronic hypertension Maintained on nifedipine ER 30 mg QAM Aspirin 81 mg Baseline pre E labs: WNL, no platelets Labs 12/24/2023: Platelets 293, AST 60, ALT 18, protein to creatinine ratio 0.12, creatinine 0.5 Growth ultrasound q.4 weeks starting at 28 weeks (per [facility]) Weekly BPP or NST starting at 32 weeks Weekly pre E labs starting at 32 weeks Delivery recommended 37- 39 09/04, sooner if poor control of blood pressure # morbid obesity, BMI greater than 50 Hemoglobin A1c 5.3% Referral to package sorter: Patient declined Referral to anesthesiology: placed 12/23 Patient declined b/c appointments are only available in the AM and conflict with her work schedule. Level 2 ultrasound and consult with [facility]: Referral placed 1hr GTT at 28 weeks: 97 Weekly testing starting at 32 weeks: ordered Growth ultrasound between 32 and 36 weeks: ordered # AMA Panorama: No results if too low fraction. Repeat: Low risk Level 2 ultrasound: # Posterior low lying placenta, resolved as of 28 weeks # Hx of genital warts Frozen off in October [facility] US 10/21/23: EFW 43rd percentile, AC 64th percentile. Posterior, low lying placenta. Three-vessel cord. MVP 4.5 cm. No anomalies commonly detected by ultrasound were identified in this detail anatomy survey. 12/24/23: Cephalic lie, SDP 6.3 cm, EFW 58%, AC 74%, BPD 10%, HC 20%, FL 45%. Placenta was posterior and 3.9 cm from the os 01/21/24: Vertex, SDP 6.2cm. EFW: 2250g, 4lb 15oz, 75%. BPD 17%, HC 22%, AC 96%, FL 37%. BPP 8/8. 02/18/24: Cephalic, normal fluid, EFW 66%, AC 94% Transfer from [facility] labs 08/13/2023 O-positive Negative antibody screen CBC 09/23: WBC 17.6 (patient reports always runs high), normal platelets Rubella immune RPR nonreactive Hepatitis-B surface antigen nonreactive HIV negative Gonorrhea and chlamydia negative Urine culture negative Pap 05/2023: Ascus positive HPV (other), deferring colp until PP TDAP: 01/07/24 Flu: declines Covid: declines RSV:01/28/24 GBS: Obtained on 02/10 H&P: Dr. Durham on 02/10 OB - Problem Based A/P Additional Plan (1) Chronic hypertension: Status: Acute (2) BMI 50.0-59.9, adult: Status: Acute (3) : Status: Acute Plan Cervical ripening followed by induction of labor for indication of chronic hypertension maintained on medication during . Cervix unfavorable. Cook catheter placed using aseptic technique, and both intrauterine and vaginal balloons inflated to 60 mL of saline. Patient tolerated procedure very well. Begin low-dose Pitocin at 12:30 a.m.. Continuous monitoring during Pitocin use. Cook catheter is due to be removed at 5:30 a.m.. At that time, we will begin Pitocin at usual doses. We will continue her current dose of nifedipine for the time being. HELLP labs were also repeated at admission. Delivery/Labor/Induction Plan Plan: induction OB Exam Physical Exam Vital signs: Temp Pulse Resp BP Pulse Ox 98.4 F 96 17 135/91 H 97 02/22/24 16:35 02/22/24 16:35 02/22/24 16:35 02/22/24 16:35 02/22/24 16:49 Narrative: Physical exam: General: No acute distress Psych: Alert and oriented x3, full affect HEENT: Normocephalic, atraumatic Heart: Regular rate and rhythm, no murmur rub or gallop Lungs: Clear to auscultation bilaterally Abdomen: Soft, nontender, gravid, cephalic; confirmed by ultrasound. [place] overhangs the lower uterine segment Lower extremities: 4+ edema bilateral feet and ankles, 1+ edema at shins Pelvic exam: Cervix 1 cm, 70%, high, anterior, moderate consistency Cook catheter placed using aseptic technique, and both intrauterine and vaginal balloons inflated to 60 mL of saline. Patient tolerated procedure very well. tracing: Baseline 155, accelerations present, no decelerations, moderate variability
[2024-02-22 18:06] LABS: Basophils Percent Auto 0.2 % (0.0-3.0); Eosinophils Percent Auto 0.9 % (0.0-7.0); Hematocrit 37.3 % (33.0-51.0); Hemoglobin* 12.5 gm/dL (12.0-16.0); Lymphocytes Percent Auto 20.5 % (20-44); Mean Corpuscular HGB Conc 34 gm/dL (32-36); Mean Corpuscular Hemoglobin 33 pg (26-34); Mean Corpuscular Volume 97 fL (80-100); Monocytes Percent Auto 5.9 % (0.0-11.0); Neutrophils Percent Auto 71.5 % (42.0-72.0); Platelet Count* 239 K/uL (140-440); RDW Coefficient of Variation % 14.4 % (11.5-15.5); Red Blood Count 3.84 m/uL (4.00-5.20); White Blood Count* 15.81 K/uL (4.50-11.00)
[2024-02-22 18:10] LABS: Slide Review Reflex No
[2024-02-22 18:22] LABS: Alanine Aminotransferase* 15 U/L (4-35); Aspartate Amino Transferase* 25 U/L (12-35); Blood Urea Nitrogen* 8 mg/dL (5-24); Creatinine* 0.5 mg/dL (0.5-1.5); Est. Creatinine Clearance* 141.31; Estimated Glomerular Filt Rate 125 ml/min
[2024-02-22 19:50] LABS: Total Protein Urine 17 mg/dL
[2024-02-22 19:51] LABS: Creatinine Urine 181.8 mg/dL; Protein Creatinine Ratio Urine 0.09 (0-0.19)
[2024-02-22] MEDS: hydrOXYzine pamoate 25 MG CAPSULE 100 MG PO (21:48)
[2024-02-22] MEDS: MORPHINE 10 MG/ML inj IM (21:48)
[2024-02-23] VITALS (130 sets, daily range): BP systolic 81–156; BP diastolic 43–98; PULSE 76–196; RESP 14–82; TEMP 36.6–37; O2SAT 87–100
[2024-02-23] MEDS: OXYTOCIN 30 unit/500 ML in NS 30 UNIT/500 ML BAG IVPB (00:37)
[2024-02-23] MEDS: LACTATED RINGERS 1000 ML 1,000 ML 75 ML IV ×2 (00:37→14:09)
--- NOTE | 2024-02-23 07:57 | P.OBPN_ITS ---
Subjective Time Seen by Provider: 07:57 Date Seen: 02/23/24 Narrative: Subjective: Patient is comfortable feeling a few contractions. Pitocin: 8 milliunits/minute. Verbal consent obtained to perform artificial rupture of membranes. No evidence of superimposed preeclampsia. On admission protein creatinine ratio was 0.09, AST, ALT, platelets and creatinine were all normal. Vital signs: Per electronic medical record. EFM: Baseline 150, positive accelerations, negative decelerations, moderate variability, reactive. Category 1. [place]: Contractions every 2-5 minutes. SVE: 5 cm/50 %/-3. AROM, clear fluid. Assessment: 33-year-old 2 para 1 at 37 weeks 2 days gestation undergoing induction of labor for chronic hypertension on nifedipine ER 30 mg daily Plan: 1. Continue Pitocin per labor induction protocol. 2. Considering epidural for labor analgesia. 3. GBS negative 4. Blood type: O positive Objective Vital Signs: Last Vital Signs Temp 98.5 F 02/23/24 07:44 Pulse 97 02/23/24 07:45 Resp 14 02/23/24 07:44 BP 135/98 H 02/23/24 07:45 Pulse Ox 100 02/23/24 07:44
--- NOTE | 2024-02-23 11:30 | PM.OBPNVD1 ---
OB - PN:Subj Subjective Time Seen by Provider: 11:31 Date Seen: 02/23/24 Narrative: Subjective: The patient is more uncomfortable with contractions in the last hour. Pitocin: 10 milliunits/minute. Vital signs: Per electronic medical record. EFM: Baseline 140s, positive accelerations, 1 deceleration that appeared late lasting 1.5 minutes greater than 60 minutes ago, model variability, reactive. Category 2. [place]: Contractions every 2-5 minutes. SVE: 6 cm/50 %/-3. Assessment: 33-year-old 2 para 1 at 36 weeks 2 days gestation undergoing induction of labor for chronic hypertension on medication. Plan: 1. Continue Pitocin per labor induction protocol. 2. Considering epidural for labor analgesia OB - PN: Obj Exam Physical Exam: Vital signs: Temp Pulse Resp BP Pulse Ox 98.3 F 85 14 140/70 H 97 02/23/24 10:25 02/23/24 11:12 02/23/24 09:40 02/23/24 11:12 02/23/24 11:12 OB - PN: Obj Data Labs Labs: Laboratory Results - last 24 hr 02/22/24 02/22/24 17:58 19:30 WBC 15.81 H RBC 3.84 L Hgb 12.5 Hct 37.3 MCV 97 MCH 33 MCHC 34 RDW Coeff of Jodi 14.4 Plt Count 239 Neut % (Auto) 71.5 Lymph % (Auto) 20.5 [place] % (Auto) 5.9 Eos % (Auto) 0.9 Baso % (Auto) 0.2 Neut # (Auto) 11.30 H Lymph # (Auto) 3.20 H [place] # (Auto) 0.90 Eos # (Auto) 0.10 Baso # (Auto) 0.00 Abs Immat Gran (auto) 0.20 Imm/Tot Granulo (auto) 1.0 BUN 8 Creatinine 0.5 Estimated Creat Clear 141.31 Estimated GFR 125 AST 25 ALT 15 Urine Creatinine 181.8 Protein/Creatinin Ratio 0.09 Urine Total Protein 17 Blood Type O Positive Antibody Screen NEGATIVE OB - PN: A/P Delivery Assessment and Plan (1) Chronic hypertension: Status: Acute (2) BMI 50.0-59.9, adult: Status: Acute (3) : Status: Acute
[2024-02-23] MEDS: ROPIVACAINE 0.2% 100 ml 100 ML 12 MG EPIDURAL (14:10)
[2024-02-23] MEDS: LIDOCAINE 2% (PF) 5 ML VIAL EPIDURAL (14:10)
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
[2024-02-23] MEDS: PHENYLEPHRINE 100 MCG/ML SYRINGE IVP ×4 (14:23→17:49)
--- NOTE | 2024-02-23 14:47 | PM.OBPNL ---
Subjective Time Seen by Provider: 14:47 Date Seen: 02/23/24 Narrative: Subjective: Patient is comfortable w/ epidural as she just received. She had some problems with hypotension just after the epidural was placed and has received 2 doses of phenylephrine in 1 dose of ephedrine with good response and feels better. Baby had a 1 minute deceleration when her blood pressure decreased to 104/49. Pitocin: 13 milliunits/minute. Vital signs: Per electronic medical record. EFM: Baseline 140s, positive accelerations, positive decelerations: 2 heart rate decelerations that appeared to be late with hypotension secondary to the epidural, moderate variability, reactive. Category 2. FSE placed with a > 15x15 bpm acceleration with placement of the IUPC and FSE [place]: Contractions every 3-4 minutes. IUPC placed. SVE: 6cm/50%/-2. Minimal progress since her last check. Assessment: 33-year-old 2 para 1 at 30 seconds weeks to days gestation undergoing induction of labor for chronic hypertension prolonged active phase. Plan: 1. Continue Pitocin per labor induction protocol. 2. Epidural for labor analgesia. Objective Vital Signs: Last Vital Signs Temp 98.4 F 02/23/24 12:10 Pulse 100 02/23/24 14:45 Resp 14 02/23/24 12:10 BP 125/56 L 02/23/24 14:45 Pulse Ox 98 02/23/24 14:44
--- NOTE | 2024-02-23 17:00 | P.OBPN_ITS ---
Subjective Time Seen by Provider: 17:00 Date Seen: 02/23/24 Narrative: Subjective: Patient is comfortable w/ epidural. Pitocin: 17 milliunits/minute. Vital signs: Per electronic medical record. EFM: Baseline 140s, positive accelerations, sporadic variable decelerations lasting 10 seconds or less, moderate variability, reactive. Category 2. IUPC: Contractions every 2 minutes. [place] units 180-220 in the last 30 minutes. SVE: 8cm/90%/-1. Assessment: 33-year-old 2 para 1 at 37 weeks to days gestation undergoing induction of labor for chronic hypertension on medication. Plan: 1. Continue Pitocin per labor induction protocol. 2. Epidural for labor analgesia Objective Vital Signs: Last Vital Signs Temp 98.5 F 02/23/24 16:58 Pulse 89 02/23/24 16:46 Resp 16 02/23/24 16:58 BP 131/82 02/23/24 16:46 Pulse Ox 99 02/23/24 15:19
[2024-02-23] MEDS: LACTATED RINGERS 1000 ML 1,000 ML 125 ML IV (17:48)
[2024-02-23] MEDS: AZITHROMYCIN 500 MG in 0.9 % SODIUM CHLORIDE 250 ml 250 ML 255 MG IVPB ×2 (20:03→21:00)
[2024-02-23] MEDS: ACETAMINOPHEN 500 MG TABLET 1000 MG PO (20:12)
--- NOTE | 2024-02-23 20:16 | PM.OBPNL ---
Subjective Time Seen by Provider: 20:16 Date Seen: 02/23/24 Narrative: Subjective: Patient is comfortable w/ epidural. Pitocin: 20milliunits/minute which was turned off at approximately 1940 due to recurrent variable decelerations to the 80s. Vital signs: Per electronic medical record. FSE: Baseline 140s, positive accelerations, deep variable decelerations to the 80s with every contraction, model variability, nonreactive. Category 2. IUPC: Contractions every 2 minutes. SVE: 8 cm/100 %/-1. Assessment: 33-year-old 2 para 1 at 37 weeks 2 days gestation nonreassuring heart rate tracing, arrest of dilation pre Plan: 1. Pitocin stopped due to recurrent variable decelerations to the 80s with every contraction 2. Epidural for labor analgesia 3. Recommended primary low-transverse for recurrent variable decelerations with every contraction and arrest of dilation at 8 cm for 3.5 hours. 4. Consent form reviewed and signed for primary low-transverse section pre Objective Vital Signs: Last Vital Signs Temp 98.6 F 02/23/24 18:01 Pulse 196 H 02/23/24 19:57 Resp 16 02/23/24 16:58 BP 111/79 02/23/24 19:57 Pulse Ox 97 02/23/24 20:14
[2024-02-23] MEDS: CEFAZOLIN 1 GM inj 3 GM IVP (21:10)
[2024-02-23] MEDS: TRANEXAMIC ACID 100 MG/ML INJ 1000 MG IV (21:35)
[2024-02-23] MEDS: KETOROLAC 30 MG/ML inj IVP ×2 (21:57→22:40)
--- NOTE | 2024-02-23 22:06 | P.PCN_ITS ---
Procedure Note Time Seen by Provider: 22:06 Date Seen: 02/23/24 Date of procedure: 02/23/24 Will [facility] bill your pro fee for this procedure?: Yes Procedure: Preoperative diagnosis: 33-year-old 2 para 1 at 37 and 2/7 weeks with recurrent variable decelerations and arrest of dilation Postoperative diagnosis: Same, ROT presentation Procedure: Primary low-transverse section Anesthesia: Epidural Surgeon: Linda Caldwell MD Sales Representative Graphic Art: Janette Sims MD Quantitative blood loss: 823 mL IV Fluid: 1000 mL UOP: 75 mL Specimen: 1. Placenta. 2. Peritoneal biopsy Drain(s): Jara to gravity Findings: A live female was delivered from the ROT position at 9:34 p.m. Apgars were 8 at 1 min and 9 at 5 min, respectively. Infant weight: 7 lb 0 oz. Nuchal cord(s): Yes, loose, easily reduced at the sterile field prior to delivery of the infant's shoulders. The placenta was delivered spontaneously and complete at 9:36 p.m. Amniotic fluid: Clear. Normal uterus, fallopian tubes and ovaries were noted. Other findings: Peritoneal cyst approximately 1 cm in diameter at the right apex of the uterine incision that was removed and sent pathology. Procedure: Guerline was taken to the OR where epidural anesthetic was found be adequate. A Jara catheter was placed. The patient was then placed in the dorsal supine position with a leftward tilt. She was then prepped and draped in a normal sterile manner. A Pfannenstiel skin incision was made and carried through sharply to the underlying layer of fascia. Fascia was incised in the midline and this incision carried laterally with Doyle scissors. The superior aspect of fascial incision was grasped with Frida clamps, tented up, and the rectus muscles dissected off with a combination of blunt and sharp dissection. The inferior aspect of the fascial incision was grasped with Frida clamps, tented up and again the rectus muscles dissected off with a combination of blunt and sharp dissection. The rectus muscles were in the midline. The peritoneum was entered bluntly. This opening was extended bluntly. An Dewayne-O self-retaining retractor was placed. A bladder flap was not created. Uterus was incised in a low transverse manner in the midline. This incision carried laterally with blunt pressure on the inferior and superior aspects of the uterine incision. The amniotic sac was ruptured. The infant's head and body was delivered atraumatically. The was shown to the patient and her support person and then handed to waiting pediatric and nursing staff. The placenta was delivered spontaneously and complete. The uterus was cleared of clots and debris. The uterine incision was re-approximated with the uterus in vivo. The 1st layer using 0-Vicryl in a running, locked manner. The 2nd layer using 0-Monocryl in a running, vertical, imbricating layer. Additional sutures needed for hemostasis: No. Excellent hemostasis was verified. The Dewayne retractor was removed. The rectus muscles were not reapproximated. The rectus muscles were then closely inspected to verify hemostasis. Hemostasis was obtained with bipolar cautery. The fascia was then re-approximated using 0-Maxon loop in a running manner. The subcutaneous tissue was then irrigated with saline and hemostasis obtained with bipolar cautery. The subcutaneous tissue was re-approximated using 3-0 plain gut in a running manner. The skin was reapproximated using 4-0 Monocryl in a running subcuticular manner. Steri-Strips and a silver-containing Mepiplex dressing were applied. The patient tolerated this procedure well. Sponge, lap and instrument counts were correct x2 active to the procedure. Patient was taken to the recovery area in stable condition. The patient received 3g of IV Ancef and 500 mg IV azithromycin prior to skin i ncision. The patient received 1 g IV TXA after cord clamp.
--- NOTE | 2024-02-23 22:51 | W.ANESCHARGE ---
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
--- NOTE | 2024-02-23 22:52 | W.PM.NB ---
Nerve Block Nerve Block Time Seen by Provider: 22:20 Date Seen: 02/23/24 Type of block requested by surgeon for post-operative analgesia: TAP Side: bilateral Time out performed: Yes Verification of patient name: Yes Verification of date of : Yes Site marking: not applicable Name of person performing procedure: Rosina Continuous monitoring Was continuous monitoring of O2 sat, B/P, forensic document examiner, recorded every 15 minutes?: Yes Procedure Checklist: sterile prep, needles and gloves Ultrasound guided. Images saved: Yes Medications given in 5ml increments after negative aspiration: Marc[place] %: 0.25 mL: 30 Needle gauge: 20 and Exparel mL: 10 Needle gauge: 20 Patient tolerated procedure well: Yes Block Charges Block Charge (with Pro Fee): TAP Bilateral Use of Ultrasound Machine for Block: Yes- US Guidance/pain block
[2024-02-24] VITALS (28 sets, daily range): BP systolic 109–158; BP diastolic 71–87; PULSE 76–106; RESP 16–20; TEMP 36.6–37.2; O2SAT 95–98
[2024-02-24] MEDS: diphenhydrAMINE 50 MG/ML inj 12.5 MG IVP ×6 (01:24→16:50)
[2024-02-24 02:49] LABS: Hematocrit 33.4 % (33.0-51.0); Hemoglobin* 11.2 gm/dL (12.0-16.0); Mean Corpuscular HGB Conc 34 gm/dL (32-36); Mean Corpuscular Hemoglobin 33 pg (26-34); Mean Corpuscular Volume 97 fL (80-100); Platelet Count* 235 K/uL (140-440); Red Blood Count 3.43 m/uL (4.00-5.20)
[2024-02-24 02:54] LABS: Total Protein Urine < 5 mg/dL
[2024-02-24 02:55] LABS: Creatinine Urine 289.5 mg/dL; Protein Creatinine Ratio Urine 0.02 (0-0.19)
[2024-02-24 03:05] LABS: Slide Review Reflex No; White Blood Count* 27.68 K/uL (4.50-11.00)
[2024-02-24 03:09] LABS: Aspartate Amino Transferase* 22 U/L (12-35); Creatinine* 0.7 mg/dL (0.5-1.5); Est. Creatinine Clearance* 100.94; Estimated Glomerular Filt Rate 116 ml/min
[2024-02-24 03:10] LABS: Alanine Aminotransferase* 15 U/L (4-35); Blood Urea Nitrogen* 11 mg/dL (5-24)
[2024-02-24] MEDS: KETOROLAC 30 MG/ML inj IVP ×4 (04:41→22:26)
[2024-02-24] MEDS: NIFEdipine 30 MG TAB.ER.24 60 MG PO (08:12)
[2024-02-24] MEDS: ENOXAPARIN 40 MG/0.4 ML INJ SUBCUT ×2 (08:13→21:33)
[2024-02-24] MEDS: SODIUM CHLORIDE 0.9 % (FLUSH) 10 ML SYRINGE IVF (08:20)
[2024-02-24] MEDS: ACETAMINOPHEN 500 MG TABLET 1000 MG PO ×3 (09:23→22:27)
--- NOTE | 2024-02-24 09:52 | PM.OBPNVD1 ---
OB - PN:Subj Subjective Date Seen: 02/24/24 Narrative: Guerline is a 33 y.o. G 2 P 2 who was admitted to L & D for indcution of labor. ?She had a primary section for arrest of dilation that was uncomplicated. The patient feels well. ?The pain is well controlled with current medications. ?She has no new complaints. ?She is not planning to breastfeed, aware that her milk will come in and dry up usually within 1-2 weeks. the patient has done well.? Vitals have been stable.? She has remained afebrile.? Has a good appetite, is tolerating a general diet. ?She is voiding without difficulty.? She is passing gas and has not had a bowel movement.? She is ambulating and denies any dizziness.? Has small amount of rubra lochia. Problems: Stable CHTN OB - PN: Obj Exam Physical Exam: Vital signs: Temp Pulse Resp BP Pulse Ox O2 Del Method 98.5 F 76 18 109/71 97 Room Air 02/24/24 08:00 02/24/24 08:00 02/24/24 08:00 02/24/24 08:00 02/24/24 08:00 02/24/24 08:00 Narrative: GENERAL APPEARANCE:? normal affect, alert, no distress MOOD:? appropriate CHEST:? clear to auscultation HEART:? regular rate and rhythm ABDOMEN:? soft, non-tender the uterine fundus is At Umbilicus, Midline and is appropriate for the stage of recovery. EXTREMITIES:? normal and trace edema INCISION: Silver dressing in place; Clean, dry, and intact OB - PN: Obj Data Labs Labs: Laboratory Results - last 24 hr 02/24/24 02/24/24 02:21 02:45 WBC 27.68 H* RBC 3.43 L Hgb 11.2 L Hct 33.4 MCV 97 MCH 33 MCHC 34 Plt Count 235 BUN 11 Creatinine 0.7 Estimated Creat Clear 100.94 Estimated GFR 116 AST 22 ALT 15 Urine Creatinine 289.5 Protein/Creatinin Ratio 0.02 Urine Total Protein < 5 OB - PN: A/P Delivery Assessment and Plan (1) care and examination immediately after delivery: Status: Acute (2) Chronic hypertension: Status: Acute (3) BMI 50.0-59.9, adult: Status: Acute (4) Status post primary low transverse section: Status: Acute Plan day: 1 Plan: routine care Comments: plan: Routine and postop care. , may see if needed Hgb 11.2. CHTN. Labs WNL Anticipate discharge tomorrow or the following day.
--- NOTE | 2024-02-24 10:11 | PM.ANPOST ---
Post Anesthesia Note Post Anesthesia Note Patient seen: Inpatient Respiratory Status: adequate Cardiovascular Status: adequate Mental Status: baseline Pain: adequate Temp: baseline Anesthetic awareness: N/A Complications: none Follow care: none
[2024-02-24 22:01] LABS: Rapid Plasma Reagin (RPR) Non Reactive (Non Reactive)
[2024-02-24] MEDS: hydrOXYzine pamoate 25 MG CAPSULE PO (22:45)
[2024-02-25] VITALS: BP 128/85; PULSE 88; RESP 18; TEMP 36.9; O2SAT 98
[2024-02-25 04:30] VITALS: BP 116/76; PULSE 72; RESP 16; TEMP 36.8; O2SAT 99
[2024-02-25] MEDS: KETOROLAC 30 MG/ML inj IVP (06:26)
[2024-02-25] MEDS: ACETAMINOPHEN 500 MG TABLET 1000 MG PO (06:28)
--- NOTE | 2024-02-25 08:12 | P.DS_ITS ---
DS: Providers Provider Date Seen: 02/25/24 Date of admission: 02/22/24 16:25 Primary care physician: Not a Local Provider Admitting Clinician: Jeannie Davila MD Attending Physician on discharge: Lupis Gusman CNM Date of Discharge: 02/25/24 DS: Diagnosis Discharge Diagnosis (1) care and examination immediately after delivery: Status: Acute (2) Status post primary low transverse section: Status: Acute (3) Chronic hypertension: Status: Acute Exam Narrative: Exam Narrative: VSS. ?AfebrileGENERAL APPEARANCE: ?normal affect, alert, no distress MOOD: ?appropriate HEENT: normocephalic, neck supple, full ROM CHEST: ?Symmetrical chest wall movement. ?Normal respiratory effort. ?Clear to auscultation HEART: ?regular rate and rhythm ABDOMEN: ?soft, non-tender. Uterine fundus is firm, at Umbilicus, Midline and is appropriate for the stage of recovery. ?Bowel sounds present. EXTREMITIES: ?normal and no edema SKIN: warm, dry. ? ?Incision clean/dry/well approximated. ?No signs of infection noted. Const: Vital Signs, click to edit/add: Vital Signs - 24 hr 02/24/24 11:15 02/24/24 11:56 02/24/24 11:57 Temperature Pulse Rate [Right Pulse Oximeter] Respiratory Rate 18 18 18 Blood Pressure [Ri ght Arm] Pulse Oximetry Oxygen Delivery Me thod 02/24/24 12:30 02/24/24 12:53 02/24/24 14:08 Temperature 98.3 F Pulse Rate [Right Pulse Oximeter] 88 Respiratory Rate 18 18 18 Blood Pressure [Ri ght Arm] 123/82 Pulse Oximetry 95 Oxygen Delivery Me thod Room Air 02/24/24 15:00 02/24/24 16:03 02/24/24 16:57 Temperature 97.9 F Pulse Rate [Right Pulse Oximeter] 106 H Respiratory Rate 18 18 18 Blood Pressure [Ri ght Arm] 135/87 Pulse Oximetry 95 Oxygen Delivery Me thod Room Air 02/24/24 19:39 02/24/24 19:55 02/24/24 19:55 Temperature 98.0 F Pulse Rate [Right Pulse Oximeter] 105 H Respiratory Rate 18 18 18 Blood Pressure [Ri ght Arm] 118/76 Pulse Oximetry Oxygen Delivery Me thod Room Air 02/24/24 21:12 02/25/24 00:00 02/25/24 04:30 Temperature 98.4 F 98.2 F Pulse Rate [Right Pulse Oximeter] 88 72 Respiratory Rate 18 18 16 Blood Pressure [Ri ght Arm] 128/85 116/76 Pulse Oximetry 98 99 Oxygen Delivery Me thod Room Air Room Air Documenting provider has reviewed patient's vital signs: yes OB - DS: Summary Hospital Course Hospital Course: Guerline is a 33 y.o. who was admitted to [facility] for induction of labor. ?She had an uncomplicated .?The patient feels well. ?The pain is well controlled with current medications. ?She has no new complaints. ?She is breast feeding and reports things are going well.? the patient has done well.? Vitals have been stable.? She has remained afebrile.? Has a good appetite, is tolerating a general diet. ?She is voiding without difficulty.? She is passing gas and has not had a bowel movement.? She is ambulating and denies any dizziness.? Has Small amount of rubra lochia. ?She is planning IUD for prevention. Peripartum Data delivery method: Primary C/S; Labored Laceration description: None Procedures: Procedures Operation Date: 02/23/24 21:00 Actual Procedure Side Surgeon p Section Linda Caldwell MD complications: none [place] Gender: Female Discharge Plan: Home Status at Discharge Functional status at discharge: independent ambulation Overall status at discharge: patient is progressing back to baseline Time Spent with Patient Time attestation: Total time spent providing and/or coordinating discharge services: Time spent: Less than 30 minutes Discharge Plan Discharge Disposition: Home, Self-Care Date of Admission: 02/22/24 16:25 Attending Provider on Discharge: Lupis Gusman Consulting Providers: Linda Caldwell Primary Care Provider: Provider,Not a Local Condition: Stable Anticipated Discharge Date/Time: 02/25/24 12:00 Discharge Medications: New nifedipine 30 mg Tablet Extended Release 24hr 60 mg PO DAILY Qty: 60 0RF acetaminophen 500 mg Tablet 1,000 mg PO Q6H PRN (Reason: Pain) Qty: 0 0RF docusate sodium 100 mg Capsule 100 mg PO BID PRN (Reason: constipation) Qty: 90 0RF ibuprofen 600 mg Tablet 600 mg PO Q6H PRN (Reason: Pain) Qty: 60 0RF oxycodone 5 mg capsule 5 - 10 mg PO Q4H PRN (Reason: pain) Qty: 10 0RF Continued DHA 200 mg capsule 200 mg PO DAILY vitamin [id number] acid 1,000-400 mcg tablet, sublingual sublingual DAILY pyridoxine (vitamin B6) 250 mg tablet 250 mg PO QDAY famotidine 20 mg tablet 20 mg PO Q12H cholecalciferol (vitamin D3) 50 mcg (2,000 unit) capsule 50 mcg PO QDAY albuterol sulfate 90 mcg/actuation HFA aerosol inhaler 2 puff inhalation Q4-6H PRN Discontinued nifedipine 30 mg tablet extended release 30 mg PO QDAY Discharge Orders: Discharge Order (Routine); Ordered 02/25/24 Ordered By: Lupis Gusman Patient Education: OB Over the Counter Medication Information, OB /Breast Feeding Additional Instructions: Discharge instructions were reviewed with the patient including signs and symptoms of infection and home going medications Lifting Restrictions: 20 pounds for 6 weeks No not submerge incision under water X 2 weeks? Nothing vaginally for 6 weeks: no tampons or intercourse Do not drive while taking narcotic pain medication(s) Off Work or School for 8 weeks 2-week visit: incision check, discuss feeding concerns, review control options and screen for anxiety/depression. 6-week visit for an annual exam. consultation services are available to all mothers and babies for the first year after delivery.? To make an appointment, please call [phone]. Activity Level: Activity as Tolerated Discharge Diet: Regular Follow Up Appointments: [facility] [Provider Group] Forms: [employer] ([email or web address])th Info Instructions
[2024-02-25 08:37] VITALS: BP 135/83; PULSE 82; RESP 16; TEMP 36.7; O2SAT 100
[2024-02-25] MEDS: DOCUSATE SODIUM 100 MG CAPSULE PO (08:46)
[2024-02-25] MEDS: ENOXAPARIN 40 MG/0.4 ML INJ SUBCUT (08:46)
[2024-02-25] MEDS: NIFEdipine 30 MG TAB.ER.24 60 MG PO (08:46)
[2024-02-25 15:01] VITALS: BP 151/90; PULSE 82; RESP 16; O2SAT 97
[2024-02-25 15:17] VITALS: BP 139/85
[2024-02-25] MEDS: IBUPROFEN 600 MG TABLET PO (15:45)
== END 2024-02-25 16:35 | disposition home or self-care (01) | DRG 788 ==
PROVIDERS: Obstetrics & Gynecology; Admitting Provider Obstetrics & Gynecology; Visit Provider Obstetrics & Gynecology
PROC: (CPT 59514; principal; 2024-02-23 20:45)
DX: O10.02 Pre-existing essential hypertension complicating childbirth (principal); Z3A.37 37 weeks gestation of pregnancy; Z37.0 Single live birth; O76 Abnormality in fetal heart rate and rhythm complicating labor and delivery; O99.214 Obesity complicating childbirth; E66.01 Morbid (severe) obesity due to excess calories; O61.0 Failed medical induction of labor; O34.83 Maternal care for other abnormalities of pelvic organs, third trimester; K66.8 Other specified disorders of peritoneum; G89.18 Other acute postprocedural pain
CPT/HCPCS: 01967; 01968; 36415; 59200; 64488; 76815; 76942; 82565; 82570; 84156; 84450; 84460; 84520; 85018; 85025; 85027; 86592; 86850; 86900; 86901; 88304; 88307; 99140; A9270; C1726; C9290; J0456; J0665; J0690; J1100; J1200; J1650; J1885; J2270; J2274; J2371; J2405; J2590; J2765; J2795; J3010; J7050; J7120

== ENCOUNTER 2024-04-06 12:20 | Outpatient (CLI) | payer OTHER, MEDICAID, SELFPAY ==
--- NOTE | 2024-04-06 13:00 | CRLHL7_ITS ---
For Patients: As a result of the Century Cures Act, medical imaging exams and procedure reports are released immediately into your electronic medical record. You may view this report before your referring provider. If you have questions, please contact your health care provider. INDICATION: Left leg/ankle/foot swelling continued since ended in February. TECHNIQUE: Venous duplex ultrasound of the left lower extremity utilizing compression with hoang-scale, color Doppler, and spectral Doppler imaging. COMPARISON: None FINDINGS: There is no sonographic evidence of deep vein thrombosis in the left common femoral, deep femoral, superficial femoral, popliteal, posterior tibial, peroneal, or contralateral common femoral veins. There is no visualized superficial vein thrombosis. The soft tissues are unremarkable. IMPRESSION: No deep vein thrombosis in the left lower extremity. Dictated by Kali Smith MD @ 04/06/2024 1:45:03 PM (Electronically Signed)
== END 2024-04-06 12:21 | disposition home or self-care (01) ==
LOC: US 12:20
PROVIDERS: Visit Provider Registered Nurse
DX: M79.89 Other specified soft tissue disorders (principal)
CPT/HCPCS: 93971

== ENCOUNTER 2024-04-07 08:28 | Outpatient (CLI) | payer OTHER, MEDICAID, SELFPAY | END 2024-04-07 08:29 | disposition home or self-care (01) | PROVIDERS: PCP Family Medicine; Visit Provider Family Medicine | DX: I10 Essential (primary) hypertension (principal); E55.9 Vitamin D deficiency, unspecified; R53.83 Other fatigue; E66.01 Morbid (severe) obesity due to excess calories; Z13.6 Encounter for screening for cardiovascular disorders; Z68.43 Body mass index [BMI] 50.0-59.9, adult | CPT/HCPCS: 80053; 80061; 82306; 82607; 82728; 84443 ==

== ENCOUNTER 2024-07-09 08:51 | Day surgery (SDC) | payer MEDICAID, SELFPAY ==
[2024-07-09 09:06] VITALS: BMI 49.9
[2024-07-09 09:38] VITALS: BP 124/93; PULSE 78; RESP 16; TEMP 36.7; O2SAT 96
[2024-07-09] MEDS: SODIUM CHLORIDE 0.9 % (FLUSH) 10 ML SYRINGE IVF (09:39)
[2024-07-09] MEDS: OXYMETAZOLINE 0.05% NASAL SPRAY 2 SPRAY NOSTRIL-B (09:39)
[2024-07-09] MEDS: LACTATED RINGERS 1000 ML 1,000 ML 100 ML IV (09:39)
[2024-07-09] MEDS: COCAINE HCL 4 % 4 ML SOLUTION NOSTRIL-B (10:34)
[2024-07-09] MEDS: BUPIVACAINE 0.5%/EPINEPHRINE 0.9 MG (30.9 ML) INJECTION (10:40)
[2024-07-09 10:43] VITALS: BP 107/55; PULSE 75; RESP 16; TEMP 37; O2SAT 96
--- NOTE | 2024-07-09 10:46 | W.PM.ENTPROC ---
Procedure Note Date of procedure: 07/09/24 Procedure: Preop diagnosis nasal obstruction, variable, bilateral inferior turbinate hypertrophy Postoperative diagnosis same Procedure intramural cautery inferior turbinates bilateral Under sedation anesthesia patient was prepped and draped usual fashion. The nose was decongested on either side with a cocaine pledget. The anterior head of each inferior turbinate was then injected. The Coblation was used to cauterize intramurally at the anterior head an inferior 10% of both the right and left inferior turbinates. The patient procedure well was taken recovery in satisfactory condition. Blood loss was 0 Surgeon: Jaleel Harris MD
--- NOTE | 2024-07-09 10:47 | P.ANES_ITS ---
Anesthesia Charges Start Date/Time Anesthesia Start Date: 07/09/24 Anesthesia Start Time: 10:25 Stop Date/Time Anesthesia Stop Date: 07/09/24 Anesthesia Stop Time: 10:47 Coding CPT Codes CPT Codes: ANESTH NOSE/SINUS SURGERY - 24306 ([id number]) P3 - PATIENT W/SEVERE SYS DISEASE, QK - MANAGER ELIGIBILITY 2-4 CNCRNT ANES PROC, QX - CUSTOMER RELATIONSHIP SPECIALIST SVC W/ MD MED DIRECTION
--- NOTE | 2024-07-09 10:47 | W.ANESCHARGE ---
Anesthesia Charges Start Date/Time Anesthesia Start Date: 07/09/24 Anesthesia Start Time: 10:25 Stop Date/Time Anesthesia Stop Date: 07/09/24 Anesthesia Stop Time: 10:47 Coding CPT Codes CPT Codes: ANESTH NOSE/SINUS SURGERY - 13141 ([id number]) P3 - PATIENT W/SEVERE SYS DISEASE, QK - SOURCING CONSULTANT 2-4 CNCRNT ANES PROC, QX - TEA TREE FARM WORKER SVC W/ MD MED DIRECTION
[2024-07-09 11:00] VITALS: BP 119/73; PULSE 81; RESP 16; O2SAT 98
--- NOTE | 2024-07-09 11:12 | P.ANES_ITS ---
Anesthesia Charges Start Date/Time Anesthesia Start Date: 07/09/24 Anesthesia Start Time: 10:25 Stop Date/Time Anesthesia Stop Date: 07/09/24 Anesthesia Stop Time: 10:47 Coding CPT Codes CPT Codes: ANESTH NOSE/SINUS SURGERY - 92664 ([id number]) QK - SALES SUPPORT ADVISOR 2-4 CNCRNT ANES PROC, QX - BRUSH FINISHER SVC W/ MD MED DIRECTION, P3 - PATIENT W/SEVERE SYS DISEASE
--- NOTE | 2024-07-09 11:12 | W.ANESCHARGE ---
Anesthesia Charges Start Date/Time Anesthesia Start Date: 07/09/24 Anesthesia Start Time: 10:25 Stop Date/Time Anesthesia Stop Date: 07/09/24 Anesthesia Stop Time: 10:47 Coding CPT Codes CPT Codes: ANESTH NOSE/SINUS SURGERY - 45462 ([id number]) QK - BIT GATHERER 2-4 CNCRNT ANES PROC, QX - SCOW HAND SVC W/ MD MED DIRECTION, P3 - PATIENT W/SEVERE SYS DISEASE
[2024-07-09 11:16] VITALS: BP 119/73; PULSE 69; RESP 16; O2SAT 98
== END 2024-07-09 11:36 | disposition home or self-care (01) ==
LOC: OR 08:54
PROVIDERS: PCP Physician Assistant Medical; Visit Provider Otolaryngology
PROC: (CPT 30802; principal; 2024-07-09 10:15)
DX: J34.3 Hypertrophy of nasal turbinates (principal); J34.89 Other specified disorders of nose and nasal sinuses
CPT/HCPCS: 30802; 00160; A9270; J2250; J2704; J3010; J3490; J7120